=== PATIENT | male | born 1955 | race Hispanic/Latino ===

== ENCOUNTER 2018-10-24 14:33 | Observation (INO) | payer OTHER ==
--- NOTE | 2018-10-24 16:08 | P.HP ---
Certification for Inpatient Patient admitted to: Observation With expected LOS: <2 Midnights Patient will require the following post-hospital care: None Practitioner: I am a practitioner with admitting privileges, knowledge of patient current condition, hospital course, and medical plan of care. Services: Services provided to patient in accordance with Admission requirements found in Title 42 Section 412.3 of the Code of Federal Regulations Patient History Date of Service: 10/24/18 Primary Care Provider: Dr. Viveros; Nephrology-Dr. Alexander; Cardiology-Dr. Frias/Dr. 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 I was asked to admit the patient by nephrology. Patient had abnormal lab including worsening renal function. The patient was admitted for IV fluid hydration. Patient with history of diabetes, hypertension , hyperlipidemia, CAD with prior pacemaker and chronic renal disease. Patient denies any chest pain, shortness of breath, or headaches. He does report blood sugars being elevated. Patient had recent renal ultrasound showing no obstruction. Bladder ultrasound also unremarkable. Allergies erythromycin base Allergy (Intermediate, Verified 09/11/16 19:54) GI upset/burning Home medications list reviewed: Yes Home Medications: Amlodipine [Norvasc*] 10 mg PO DAILY 09/11/16 Carvedilol [Coreg*] 25 mg PO BID 09/11/16 Furosemide [Lasix*] 20 mg PO DAILYPRN PRN 09/11/16 Glipizide [Glipizide ER] 10 mg PO BID 09/11/16 Insulin Detemir [Levemir*] 20 units SQ BID 09/11/16 Isosorbide Dinitrate 10 mg PO TID 09/11/16 Metformin HCl [Glucophage] 1,000 mg PO BID 09/11/16 Pregabalin [Lyrica*] 50 mg PO BEDTIME 09/11/16 Rivaroxaban [Xarelto*] 15 mg PO DAILY 09/11/16 Telmisartan/Hydrochlorothiazid [Micardis Hct 80-12.5 mg Tablet] 1 tab PO DAILY 09/11/16 cloNIDine HCl [Catapres*] 0.1 mg PO TID 09/11/16 levETIRAcetam [Levetiracetam] 500 mg PO BID 09/11/16 levoFLOXacin [Levaquin] 250 mg PO DAILY #10 tab 09/16/16 - Past Medical/Surgical History Diabetic: Yes -: Hypertension -: Diabetes mellitus type 2, insulin-dependent -: CAD with pacemaker -: Hyperlipidemia -: Diabetic neuropathy -: Diabetic retinopathy -: Pacemaker placement -: Cholecystectomy Psychosocial/ Personal History: Patient is - Family History Family History: Reviewed- Non-Contributory - Social History Smoking Status: Never smoker Alcohol use: No CD- Drugs: No Caffeine use: Yes Place of Residence: Home Review of Systems General: As per HPI Eyes: Unremarkable ENT: Unremarkable Respiratory: Unremarkable Cardiovascular: Unremarkable Gastrointestinal: Unremarkable Genitourinary: Unremarkable Musculoskeletal: Unremarkable Integumentary: Unremarkable Neurological: Unremarkable Lymphatics: Unremarkable Physical Examination - Physical Exam General: Alert, In no apparent distress, Oriented x3, Cooperative HEENT: Atraumatic, Normocephalic, Mucous membr. 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) Neck: Supple, No Thyromegaly Respiratory: Clear to auscultation bilaterally Cardiovascular: Normal pulses, Regular rate/rhythm Gastrointestinal: Normal bowel sounds, Soft and benign, Non-distended, No tenderness, No masses, No rebound, No guarding Musculoskeletal: No erythema, No tenderness, No warmth Integumentary: No tenderness/swelling, No erythema, No warmth, No cyanosis Neurological: Normal speech, Normal strength at 5/5 x4 extr, Normal tone, Normal affect Assessment and Plan - Plan Impression: Acute on chronic renal disease, stage III Diabetes mellitus type 2, insulin-dependent Hypertension Hyperlipidemia CAD with prior pacemaker placement Diabetic retinopathy Plan: The patient admitted as a direct admit. Will start IV fluids. Recheck lab. Will monitor closely. Nephrology consulted to further monitor and address. Will discontinue metformin. Will need to review home medication and discontinue any medication that may cause more acute renal injury. Patient not taking any anti-inflammatories. Will need to renally adjust medications. Anticipate discharge in the next 24 hr. Will check A1c and tsh. Will continue with insulin. Discharge Plan: Home Plan to discharge in: 24 Hours - Advance Directives Does patient have a Living Will: No Does patient have a Durable POA for Healthcare: No - Code Status/Comfort Care Code Status Assessed: Yes (Patient full code.) Time Spent Managing Pts Care (In Minutes): 55
[2018-10-24] MEDS ORDERED: HYDRALAZINE HCL 20 MG/ML VIAL IV PRN (17:06)
[2018-10-24] MEDS ORDERED: ONDANSETRON 4 MG/2 ML VIAL IV PRN (17:06)
[2018-10-24] MEDS ORDERED: D50W 25 GM/50 ML SYRINGE IV PRN (17:06)
[2018-10-24] MEDS ORDERED: GLUCAGON 1 MG/VIAL IM PRN (17:06)
[2018-10-24] MEDS ORDERED: ACETAMINOPHEN 500 MG TAB PO PRN (17:06)
[2018-10-24 17:27] LABS: Absolute Lymphocytes (CBC) 2.1 K/uL (0.7-4.9); Absolute Monocytes 0.5 K/uL (0.1-1.3); Absolute Neutrophil 6.4 K/uL (1.8-8.0); Basophils % 0.6 % (0-1.3); Eosinophils % 5.1 % (0-4.4); Hematocrit 39.2 % (39.6-49.0); Lymphocytes % 21.8 % (15.3-44.8); MPV 7.2 fL (7.6-11.3); Monocytes % 5.1 % (3.3-12.3); RBC Red Blood Cell Count 4.44 M/uL (4.33-5.43)
[2018-10-24 17:33] LABS: Protime INR 0.96
[2018-10-24 18:30] LABS: Bilirubin Total 0.4 mg/dL (0.2-1.0); Magnesium 2.2 mg/dL (1.8-2.4); Thyroid Stimulating Hormone 2.67 uIU/mL (0.360-3.740)
[2018-10-24] MEDS: NA CHLORIDE 0.9% 1,000 ML IV SCH (18:31)
[2018-10-24] MEDS ORDERED: INSULIN -REGULAR HUMAN 50 UNIT/0.5 ML ML SQ SCH (21:00)
[2018-10-24] MEDS ORDERED: INSULIN GLARGINE 100 UNITS/ML SQ SCH (21:00)
[2018-10-24] MEDS ORDERED: ATORVASTATIN 10 MG TAB PO SCH (21:00)
[2018-10-24] MEDS: cloNIDine HCl 0.1 MG TAB PO SCH (22:14)
[2018-10-24] MEDS: INSULIN -REGULAR HUMAN 50 UNIT/0.5 ML ML SQ SCH (22:15)
[2018-10-24 23:47] LABS: Urine Appearance CLEAR; Urine Bilirubin NEGATIVE (NEG); Urine Blood NEGATIVE (NEG); Urine Color YELLOW; Urine Glucose 3+ (NEG); Urine Protein 2+ (NEG); Urine Urobilinogen 0.2 mg/dL (0.2-1.0)
[2018-10-25 00:01] LABS: Urine Microscopic Reflex ORDER UMIC
[2018-10-25 00:26] LABS: Urine Bacteria <20 /HPF (NONE SEEN); Urine Culture Reflex Order NOT NEEDED; Urine RBC <5 /HPF (NONE SEEN)
[2018-10-25 05:47] VITALS: BMI 42.8
[2018-10-25 06:12] LABS: Absolute Lymphocytes (CBC) 2.9 K/uL (0.7-4.9); Absolute Monocytes 0.6 K/uL (0.1-1.3); Basophils % 0.6 % (0-1.3); Eosinophils % 5.4 % (0-4.4); Hematocrit 38.2 % (39.6-49.0); Lymphocytes % 26.1 % (15.3-44.8); MPV 7.1 fL (7.6-11.3); Monocytes % 5.8 % (3.3-12.3); RBC Red Blood Cell Count 4.31 M/uL (4.33-5.43)
[2018-10-25 06:22] LABS: Magnesium 2.3 mg/dL (1.8-2.4)
[2018-10-25] MEDS: INSULIN -REGULAR HUMAN 50 UNIT/0.5 ML ML SQ SCH (08:35)
[2018-10-25] MEDS: NA CHLORIDE 0.9% 1,000 ML IV SCH (08:35)
[2018-10-25] MEDS: cloNIDine HCl 0.1 MG TAB PO SCH (08:36)
[2018-10-25] MEDS ORDERED: ENOXAPARIN 30 MG/0.3 ML SQ SCH (09:00)
[2018-10-25] MEDS ORDERED: levETIRAcetam 500 MG TAB PO SCH (09:00)
[2018-10-25] MEDS ORDERED: APIXABAN 5 MG TABLET PO SCH (09:00)
--- NOTE | 2018-10-25 09:34 | P.DS ---
Admission Date: 10/24/18 Discharge Date: 10/25/18 Primary Care Provider: Dr. Viveros; Nephrology-Dr. Alexander; Cardiology-Dr. Frias/Dr. Agosto Disposition: ROUTINE DISCHARGE Discharge Condition: GOOD Reason for Admission: Abnormal lab Consultations: Nephrology-Dr. Alexander Procedures: Patient presented with acute on chronic renal disease, stage III. Patient receive IV fluids. Renal function improved. Patient seen by nephrology. Medications had been adjusted. Metformin and telmisartan/hydrochlorothiazide discontinued. Recommend no further use of nonsteroidal anti-inflammatories. Future medications will need to be renally dose. Recommend to follow up with nephrology in 1-2 weeks. Recommend to recheck lab-BMP in 1 week. Patient with diabetes mellitus type 2. Patient will continue with his insulin therapy Levemir 20 units subcu twice daily. Patient also takes glipizide 10 mg 1 pill twice daily. Metformin discontinued due to chronic renal disease. Recommend blood sugars less than 140 fasting and less than 200 after meals. Further adjustment can be done by his PCP. Will need to monitor for hypoglycemia while on glipizide and insulin therapy. Education will be provided. Patient with hypertension. Medications adjusted due to chronic renal disease. Telmisartan/hydrochlorothiazide discontinued. Patient will continue with his current medications including Norvasc 10 mg daily, carvedilol 25 mg 1 pill twice daily, and clonidine 0.1 mg 1 pill 3 times a day. Recommend blood pressure is less than 150/80. Further adjustment can be done by his PCP or nephrology. Patient with seizure disorder. Patient will continue with Keppra 500 mg 1 pill twice daily. Patient with history of DVT on chronic anti coalition therapy-Eliquis. Patient continue with Eliquis 5 mg 1 pill twice daily. Further adjustment in medication can be done by his PCP. Patient with CAD and pacemaker. Follow up with cardiology as directed. 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 I was asked to admit the patient by nephrology. Patient had abnormal lab including worsening renal function. The patient was admitted for IV fluid hydration. Patient with history of diabetes, hypertension , hyperlipidemia, CAD with prior pacemaker and chronic renal disease. Patient denies any chest pain, shortness of breath, or headaches. He does report blood sugars being elevated. Patient had recent renal ultrasound showing no obstruction. Bladder ultrasound also unremarkable. Hospital Course: Acute on chronic renal disease, stage III Diabetes mellitus type 2, insulin-dependent Hypertension Hyperlipidemia CAD with prior pacemaker placement Diabetic retinopathy Seizure disorder History of DVT on chronic anti coagulation therapy Plan: The patient admitted as a direct admit. Will start IV fluids. Recheck lab. Will monitor closely. Nephrology consulted to further monitor and address. Will discontinue metformin. Will need to review home medication and discontinue any medication that may cause more acute renal injury. Patient not taking any anti-inflammatories. Will need to renally adjust medications. Anticipate discharge in the next 24 hr. Will check A1c and tsh. Will continue with insulin. Discharge Plan: Home Plan to discharge in: 24 Hours Vital Signs/Physical Exam: Temp Pulse Resp BP Pulse Ox 97.8 F 73 18 189/96 H 95 10/25/18 04:00 10/25/18 08:36 10/25/18 04:00 10/25/18 08:36 10/25/18 04:00 General: Alert, In no apparent distress, Oriented x3, Cooperative HEENT: Atraumatic Neck: Supple Respiratory: Clear to auscultation bilaterally, Normal air movement Cardiovascular: Normal pulses, Regular rate/rhythm Gastrointestinal: Normal bowel sounds, Soft and benign, Non-distended, No tenderness, No masses, No rebound, No guarding Musculoskeletal: No erythema, No tenderness, No warmth Integumentary: No erythema, No warmth, No cyanosis Neurological: Normal speech, Normal strength at 5/5 x4 extr, Normal tone, Normal affect Laboratory Data at Discharge: WBC 11.2 K/uL (4.3-10.9) H D 10/25/18 05:15 Hgb 12.8 g/dL (13.6-17.9) L 10/25/18 05:15 Hct 38.2 % (39.6-49.0) L 10/25/18 05:15 Plt Count 241 K/uL (152-406) 10/25/18 05:15 PT 11.4 SECONDS (9.5-12.5) 10/24/18 17:17 INR 0.96 10/24/18 17:17 APTT 41.5 SECONDS (24.3-36.9) H 10/24/18 17:17 Sodium 139 mmol/L (136-145) 10/25/18 05:15 Potassium 4.0 mmol/L (3.5-5.1) 10/25/18 05:15 BUN 35 mg/dL (7-18) H 10/25/18 05:15 Creatinine 1.88 mg/dL (0.55-1.3) H 10/25/18 05:15 Glucose 169 mg/dL (74-106) H 10/25/18 05:15 Magnesium 2.3 mg/dL (1.8-2.4) 10/25/18 05:15 Total Bilirubin 0.4 mg/dL (0.2-1.0) 10/24/18 17:17 AST 16 U/L (15-37) 10/24/18 17:17 ALT 32 U/L (12-78) 10/24/18 17:17 Alkaline Phosphatase 207 U/L (45-117) H 10/24/18 17:17 Triglycerides 216 mg/dL (<150) H 10/25/18 05:15 Cholesterol 121 mg/dL (<200) 10/25/18 05:15 HDL Cholesterol 35 mg/dL (40-60) L 10/25/18 05:15 Cholesterol/HDL Ratio 3.46 10/25/18 05:15 Home Medications: Amlodipine [Norvasc*] 10 mg PO DAILY 09/11/16 Carvedilol [Coreg*] 25 mg PO BID 09/11/16 Glipizide [Glipizide ER] 10 mg PO BID 09/11/16 Insulin Detemir [Levemir*] 20 units SQ BID 09/11/16 cloNIDine HCl [Catapres*] 0.1 mg PO TID 09/11/16 levETIRAcetam [Levetiracetam] 500 mg PO BID 09/11/16 Apixaban [Eliquis *] 5 mg PO BID 10/24/18 Patient Discharge Instructions: 1. Recommend a follow up with his PCP in 1 week to follow up this hospitalization. 2. Patient presented with acute on chronic renal disease, stage III. Patient receive IV fluids. Renal function improved. Patient seen by nephrology. Medications had been adjusted. Metformin and telmisartan/hydrochlorothiazide discontinued. Recommend no further use of nonsteroidal anti-inflammatories. Future medications will need to be renally dose. Recommend to follow up with nephrology in 1-2 weeks. Recommend to recheck lab-BMP in 1 week. 3. Patient with diabetes mellitus type 2. Patient will continue with his insulin therapy Levemir 20 units subcu twice daily. Patient also takes glipizide 10 mg 1 pill twice daily. Metformin discontinued due to chronic renal disease. Recommend blood sugars less than 140 fasting and less than 200 after meals. Further adjustment can be done by his PCP. Will need to monitor for hypoglycemia while on glipizide and insulin therapy. Education will be provided. 4. Patient with hypertension. Medications adjusted due to chronic renal disease. Telmisartan/ hydrochlorothiazide discontinued. Patient will continue with his current medications including Norvasc 10 mg daily, carvedilol 25 mg 1 pill twice daily, and clonidine 0.1 mg 1 pill 3 times a day. Recommend blood pressure is less than 150/80. Further adjustment can be done by his PCP or nephrology. 5. Patient with seizure disorder. Patient will continue with Keppra 500 mg 1 pill twice daily. 6. Patient with history of DVT on chronic anti coalition therapy- Eliquis. Patient continue with Eliquis 5 mg 1 pill twice daily. Further adjustment in medication can be done by his PCP. 7. Patient with CAD and pacemaker. Follow up with cardiology as directed. Diet: Renal Activity: Ad amita Time spent managing pt's care (in minutes): 55
[2018-10-25 09:53] VITALS: O2SAT 93
--- NOTE | 2018-10-25 15:16 | CON ---
Date of Consultation: 10/25/2018 Additional Consulting Physician: Ag Olsen DO Reason For Consultation: Elevated BUN and creatinine. Fluid management. History Of Present Illness: This is a pleasant 63-year-old gentleman with significant past medical h istory of diabetes complicated with neuropathy and nephropathy, coronary artery disease status post p acemaker, hypertension, hyperlipidemia, chronic kidney disease, baseline creatinine of 1.5 back in [facility] 2016 and repeated it was around 2's by the end of August with GFR of 25. The patient went to Dr. Alexander's office yesterday, found to have elevated BUN and creatinine. For that reason, he was sent over. The patient's blood sugar was on the 400, the patient was started on IV hydration. Kidney fu nction has been improved. Creatinine down to 1.8 from 2.6 on presentation. The patient is feeling b ashley. No nausea. No vomiting. Potassium has been resolved the hyperkalemia. Past Medical History: Includes, 1.Hypertension. 2.Diabetes complicated with neuropathy and nephropathy. 3.Coronary artery disease. 4.Status post pacemaker. 5.Chronic kidney disease, baseline creatinine 2, GFR on the 30. Home Medications: Include amlodipine, carvedilol, Lasix, glipizide, insulin, isosorbide, metformin, Lyrica, Xarelto, clonidine, Keppra, and Levaquin. Allergy: To erythromycin. Past Surgical History: Includes pacemaker. Family History: Positive for hypertension and diabetes. Social History: Denies smoking, denies drinking, denies drug abuse. Review of Systems: Head and Neck: No red eye. No ear pain. GI: No nausea, no vomiting. : No polyuria, no dysuria, no hematuria. Client Experience Consultant: Not applicable. Respiratory: No shortness of breath. Cardiovascular: Has leg swelling. Endocrine: No polydipsia. Skin: No rash. Neurologic: Has neuropathy. Musculoskeletal: Has low back pain. Physical Examination: Vital Signs: Blood pressure 189/96, pulse of 73. The patient had urine output good. Chest: Clear to auscultation. Heart: S1 and S2, regular. Abdomen: Soft, nontender. Extremities: +1 edema. Venous stasis, bilateral. Laboratory Data: Sodium 139, potassium 4, bicarb 26, BUN 35, creatinine 1.8, GFR of 36, calcium 8.4. PTH of 79. SPEP was within normal limit. Protein creatinine is 1.5. Renal ultrasound, 10.4/11.4. No hydronephrosis. Assessment And Plan: 1.Acute kidney injury on chronic kidney disease, stage 3B secondary to over-diuresis/glucose diuresi s, recovered back to baseline. I am going to resume Lasix for the patient. The patient is to follow up with Dr. Alexander in 2 to 3 weeks with chemistry. 2.Hypertension, uncontrolled. Resume home medication. Resume diuresis. 3.Congestive heart failure. We will establish better volume control. Continue diuresis. 4.Anemia of chronic kidney disease, stable. 5.Hyperkalemia, resolved. 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 We will try to e stablish better volume control for the patient. Discontinue IV fluid. We will resume the patient's diuresis. Advised the patient for better fluid restriction and better blood sugar compliance. HOMER Voice ID: [id number] Report ID: [id number]
[2018-10-25 15:36] VITALS: BP 175/81; TEMP 98.5
[2018-10-25] MEDS ORDERED: CARVEDILOL 25 MG TAB PO SCH (21:00)
[2018-10-26] MEDS ORDERED: AMLODIPINE 10 MG TAB PO SCH (09:00)
== END 2018-10-25 12:30 | disposition home or self-care (01) ==
LOC: 2ND 15:11
PROVIDERS: ADMIT Family Medicine; ATTEND Family Medicine
DX: I12.9 Hypertensive chronic kidney disease with stage 1 through stage 4 chronic kidney disease, or unspecified chronic kidney disease (principal); E11.22 Type 2 diabetes mellitus with diabetic chronic kidney disease; N18.3 Chronic kidney disease, stage 3 (moderate); N17.9 Acute kidney failure, unspecified; E78.5 Hyperlipidemia, unspecified; I25.10 Atherosclerotic heart disease of native coronary artery without angina pectoris; E11.319 Type 2 diabetes mellitus with unspecified diabetic retinopathy without macular edema; G40.919 Epilepsy, unspecified, intractable, without status epilepticus; Z86.718 Personal history of other venous thrombosis and embolism; Z79.01 Long term (current) use of anticoagulants; Z95.0 Presence of cardiac pacemaker
CPT/HCPCS: 85025 ×2; 80048; 36415; 83735 ×2; 82947; 85610; 80061; 82962 ×4; 85730; 84443; 83036; 84439; 80053; J7030 ×2; G0379; G0378; 81003; 81015

== ENCOUNTER 2019-06-30 13:14 | Inpatient (IN) | payer OTHER ==
[2019-06-30] MEDS ORDERED: NITROGLYCERIN 1 GM PKT TD ONE (13:43)
[2019-06-30] MEDS ORDERED: FUROSEMIDE 40 MG/4 ML VIAL ONE (13:43)
[2019-06-30] MEDS ORDERED: MORPHINE 2 MG/ML SYR ONE (13:43)
[2019-06-30 13:49] LABS: Absolute Lymphocytes (CBC) 2.6 K/uL (0.7-4.9); Basophils % 0.8 % (0-1.3); Hematocrit 36.8 % (39.6-49.0); Lymphocytes % 24.1 % (15.3-44.8); MPV 7.9 fL (7.6-11.3); RBC Red Blood Cell Count 4.08 M/uL (4.33-5.43)
--- NOTE | 2019-06-30 13:50 | RAD REPORT ---
EXAM DESCRIPTION: RAD - Chest Single View - 06/30/2019 1:38 pm CLINICAL HISTORY: Sepsis protocol, shortness of breath COMPARISON: October 2014 TECHNIQUE: AP portable chest image was obtained 1330 hour . FINDINGS: Left subclavian pacemaker/defibrillator is in place. Hazy ground-glass opacities are prese nt in the right lung field. Retrocardiac left base is more limited due to large body habitus and port able technique. Upper lobe vasculature not outside of normal range. Cardiac silhouette is enlarged. T rachea is midline. No pneumothorax. No large pleural effusion. Left pleural effusion could be masked. No acute bony abnormality seen. No acute aortic findings suspected. IMPRESSION: Asymmetric airspace opacification of the right lung field suspicious for pneumonia. An atypical or asymmetric failure/ volume overload is a lesser consideration.
[2019-06-30 13:51] LABS: Protime INR 1.04
[2019-06-30 14:07] LABS: Albumin 2.8 g/dL (3.4-5.0); Bilirubin Direct 0.2 mg/dL (0-0.2); Bilirubin Total 0.8 mg/dL (0.2-1.0); CKMB Creatine Kinase MB 2.5 ng/mL (0.3-3.6); Potassium 4.2 mmol/L (3.5-5.1); Protein, Total 7.5 g/dL (6.4-8.2); Troponin (Emerg Dept Use Only) 0.02 ng/mL (0.0-0.045)
--- NOTE | 2019-06-30 14:24 | EDPHYS ---
Physician Documentation [facility] Name: Jarod Kraft Age: 63 yrs Sex: Male : 1955 Arrival Date: 06/30/2019 Time: 13:18 Bed 2 Private MD: ED Physician Akira Pulido HPI: 06/30 13:36 This 63 yrs old Male presents to ER via EMS with complaints of Shortness Of snw Breath. 13:36 The patient has shortness of breath while showering. Onset: The symptoms/episode snw began/occurred suddenly, just prior to arrival. Duration: The symptoms are intermittent, with no pattern. The patient's shortness of breath is aggravated by nothing. Associated signs and symptoms: Pertinent positives: chest wall pain, occipital hematoma. Severity of symptoms: At their worst the symptoms were moderate. It is unknown whether or not the patient has had similar symptoms in the past. It is unknown whether or not the patient has recently seen a physician. Historical: - Allergies: 13:35 Erythromycin; ss - PMHx: 13:35 CHF; Diabetes - IDDM; Hypertension; Irregular heart rate; ss - PSHx: 13:35 pacemaker; ss - Immunization history:: Adult Immunizations up to date. - Social history:: Smoking status: Patient/guardian denies using tobacco. - Ebola Screening: : Patient denies exposure to infectious person Patient denies travel to an Ebola-affected area in the 21 days before illness onset. ROS: 13:34 Eyes: Negative for injury, pain, redness, and discharge, ENT: Negative for injury, snw pain, and discharge, Neck: Negative for injury, pain, and swelling, Cardiovascular: Negative for chest pain, palpitations, and edema, Respiratory: Negative for shortness of breath, cough, wheezing, + pleuritic chest pain, Abdomen/GI: Negative for abdominal pain, nausea, vomiting, diarrhea, and constipation, Back: Negative for injury and pain, : Negative for injury, bleeding, discharge, and swelling, MS/Extremity: Negative for injury and deformity, Skin: Negative for injury, rash, and discoloration. 13:34 Constitutional: Positive for body aches, malaise. 13:34 Neuro: Positive for dizziness, fall to floor of bathroom, Negative for gait disturbance, loss of consciousness. Exam: 13:33 Eyes: Pupils equal round and reactive to light, extra-ocular motions intact. Lids and snw lashes normal. Conjunctiva and sclera are non-icteric and not injected. Cornea within normal limits. Periorbital areas with no swelling, redness, or edema. ENT: Nares patent. No nasal discharge, no septal abnormalities noted. Tympanic membranes are normal and external auditory canals are clear. Oropharynx with no redness, swelling, or masses, exudates, or evidence of obstruction, uvula midline. Mucous membranes moist. Neck: Trachea midline, no thyromegaly or masses palpated, and no cervical lymphadenopathy. Supple, full range of motion without nuchal rigidity, or vertebral point tenderness. No Meningismus. Cardiovascular: Regular rate and rhythm with a normal S1 and S2. No gallops, murmurs, or rubs. Normal PMI, no JVD. No pulse deficits. Respiratory: Lungs have equal breath sounds bilaterally, clear to auscultation and percussion. No rales, rhonchi or wheezes noted. No increased work of breathing, no retractions or nasal flaring. Abdomen/GI: Soft, non-tender, with normal bowel sounds. No distension or tympany. No guarding or rebound. No evidence of tenderness throughout. Back: No spinal tenderness. No costovertebral tenderness. Full range of motion. Skin: Warm, dry with normal turgor. Normal color with no rashes, no lesions, and no evidence of cellulitis. MS/ Extremity: Pulses equal, no cyanosis. Neurovascular intact. Full, normal range of motion. Neuro: Awake and alert, GCS 15, oriented to person, place, time, and situation. Cranial nerves II-XII grossly intact. Motor strength 5/5 in all extremities. Sensory grossly intact. Cerebellar exam normal. Normal gait. Psych: Awake, alert, with orientation to person, place and time. Behavior, mood, and affect are within normal limits. 13:33 Constitutional: The patient appears alert, awake. 13:33 Head/face: Noted is contusion, hematoma, that is moderate, of the occiput. 13:33 Chest/axilla: Inspection: normal, Palpation: tenderness, that is moderate, that totally reproduces the patient's complaints. Vital Signs: 13:20 BP 172 / 90; Pulse 82; Resp 27; Temp 97.6; Pulse Ox 81% on R/A; Weight 136.08 kg; Pain ss 0/10; 14:28 BP 144 / 72; Pulse 71; Resp 18; Pulse Ox 94% on 94% BiPAP; Pain 0/10; ss 14:38 BP 115 / 65; Pulse 73; Resp 18; Pulse Ox 95% on BiPAP; ms 15:31 BP 131 / 75; Pulse 63; Resp 14; Pulse Ox 96% ; bp 16:30 BP 147 / 83; Pulse 80; Resp 20; Pulse Ox 99% ; bp MDM: 13:25 Patient medically screened. nahed 14:20 Data reviewed: vital signs, nurses notes. Data interpreted: Pulse oximetry: on 2L(s) snw per nasal canula, is 81 %. Interpretation: hypoxia. Plan: O2 by Mask applied. Bi-Pap. Counseling: I had a detailed discussion with the patient and/or guardian regarding: the historical points, exam findings, and any diagnostic results supporting the discharge/admit diagnosis, the presence of at least one elevated blood pressure reading (>120/80) during this emergency department visit, lab results, radiology results, the need for further work-up and treatment in the hospital. Response to treatment: the patient's symptoms have markedly improved after treatment. Physician consultation: Remington Del Valle was called at 14:21, was contacted at 14:21, regarding admission, to the telemetry unit. 06/30 13:20 Order name: Basic Metabolic Panel 06/30 13:20 Order name: Blood Culture Adult (2) 06/30 13:20 Order name: CBC with Diff 06/30 13:20 Order name: Ckmb 06/30 13:20 Order name: CPK; Complete Time: 14:07 06/30 13:20 Order name: Lactate; Complete Time: 14:07 06/30 13:20 Order name: LFT's; Complete Time: 14:07 06/30 13:20 Order name: Lipase; Complete Time: 14:07 06/30 13:20 Order name: Procalcitonin; Complete Time: 14:57 06/30 13:20 Order name: Protime (+inr); Complete Time: 13:55 06/30 13:20 Order name: Ptt, Activated; Complete Time: 13:55 06/30 13:20 Order name: Troponin (emerg Dept Use Only); Complete Time: 14:07 ss 06/30 13:20 Order name: Urine Microscopic Only ss 06/30 13:21 Order name: Basic Metabolic Panel; Complete Time: 14:07 EDMS 06/30 13:20 Order name: Chest Single View XRAY; Complete Time: 14:16 ss 06/30 13:20 Order name: Accucheck; Complete Time: 14:07 ss 06/30 13:20 Order name: Cardiac monitoring; Complete Time: 13:38 ss 06/30 13:20 Order name: EKG - Nurse/Tech; Complete Time: 13:38 ss 06/30 13:20 Order name: IV Saline Lock - Large Bore; Complete Time: 13:38 ss 06/30 13:21 Order name: Blood Culture EDMS 06/30 13:21 Order name: CBC with Automated Diff; Complete Time: 13:55 EDMS 06/30 13:21 Order name: CKMB Creatine Kinase MB; Complete Time: 14:07 EDMS 06/30 13:26 Order name: BIPAP sn 06/30 14:20 Order name: Add On-Lab [facility] 06/30 14:23 Order name: NT PRO-BNP; Complete Time: 14:57 EDMS 06/30 16:15 Order name: CT Chest Wo Con snw 06/30 13:20 Order name: Labs collected and sent; Complete Time: 13:38 ss 06/30 13:20 Order name: O2 Per Protocol; Complete Time: 13:38 ss 06/30 13:20 Order name: O2 Sat Monitoring; Complete Time: 13:38 ss Administered Medications: 13:26 CANCELLED (HTN): NS 0.9% (30 ml/kg) 30 ml/kg IV at bolus once; Sepsis Protocol sn 13:50 Drug: Lasix 40 mg Route: IVP; Site: left hand; ss 13:54 Drug: Nitro-Bid Ointment 2 % 1 inches Route: Transdermal; Site: anterior chest wall; ss 13:54 Drug: morphine 2 mg Route: IVP; Site: left hand; ss Disposition: 06/30/19 14:23 Hospitalization ordered by Remington Del Valle for Inpatient Admission. Preliminary diagnosis are Unspecified combined systolic (congestive) and diastolic (congestive) heart failure, Respiratory failure, unspecified, Renal Failure. - Bed requested for Telemetry/MedSurg (Inpatient). - Status is Inpatient Admission. bp - Condition is Stable. - Problem is new. - Symptoms have improved. UTI on Admission? No Addendum: 07/02/2019 13:14 Co-signature as Attending Physician, Akira Pulido MD I agree with the assessment and c tate plan of care. Signatures: Dispatcher [employer] EDSD Akira Pulido MD MD cha Therrien, Shelly, REFRIGERATION ENGINEERING TEACHER-C REFRIGERATION ENGINEERING TEACHER-Csnw Saloni Vazquez, SHARRON RN Andres Avendaño RN RN ja1 Herbert Alarcon, RN RN bp Corrections: (The following items were deleted from the chart) 06/30 13:26 13:20 NS 0.9% (30 ml/kg) 30 ml/kg IV at bolus once; Sepsis Protocol ordered. [facility] 15:06 14:23 Hospitalization Ordered by Remington Del Valle for Inpatient Admission. Preliminary ja1 diagnosis is Unspecified combined systolic (congestive) and diastolic (congestive) heart failure; Respiratory failure, unspecified; Renal Failure. Bed requested for Telemetry/MedSurg (Inpatient). Status is Inpatient Admission. Condition is Stable. Problem is new. Symptoms have improved. UTI on Admission? No. snw 16:30 15:06 06/30/2019 14:23 Hospitalization Ordered by Remington Del Valle for Inpatient bp Admission. Preliminary diagnosis is Unspecified combined systolic (congestive) and diastolic (congestive) heart failure; Respiratory failure, unspecified; Renal Failure. Bed requested for Telemetry/MedSurg (Inpatient). Status is Inpatient Admission. Condition is Stable. Problem is new. Symptoms have improved. UTI on Admission? No. ja1
--- NOTE | 2019-06-30 14:24 | ER ---
Nurse's Notes [facility] Name: Jarod Kraft Age: 63 yrs Sex: Male : 1955 Arrival Date: 06/30/2019 Time: 13:18 Bed 2 Private MD: Diagnosis: Unspecified combined systolic (congestive) and diastolic (congestive) heart failure;Respiratory failure, unspecified;Renal Failure Presentation: 06/30 13:15 Method Of Arrival: EMS: [facility] ss 13:15 Presenting complaint: Patient states: shortness of breath that began 1 hour ago, sudden ss onset. Denies fever. Patient arrived to ED on CPAP. Transition of care: patient was not received from another setting of care. Onset of symptoms was June 30, 2019. Risk Assessment: Do you want to hurt yourself or someone else? Patient reports no desire to harm self or others. Initial Sepsis Screen: Does the patient meet any 2 criteria? RR > 20 per min. Does the patient have a suspected source of infection? No. Patient's initial sepsis screen is negative. Care prior to arrival: Medication(s) given: IV initiated. 22 GA, in the left hand, Glucose check: 218. 13:15 Acuity: ASAF 1 ss Triage Assessment: 13:30 General: Appears distressed, comfortable, obese, Behavior is cooperative, appropriate bp for age, agitated, anxious. Respiratory: Breath sounds with crackles bilaterally. Breath sounds with wheezes bilaterally. Onset: The symptoms/episode began/occurred today, the patient has moderate shortness of breath. Respiratory: Reports shortness of breath Airway is patent. Historical: - Allergies: 13:35 Erythromycin; ss - PMHx: 13:35 CHF; Diabetes - IDDM; Hypertension; Irregular heart rate; ss - PSHx: 13:35 pacemaker; ss - Immunization history:: Adult Immunizations up to date. - Social history:: Smoking status: Patient/guardian denies using tobacco. - Ebola Screening: : Patient denies exposure to infectious person Patient denies travel to an Ebola-affected area in the 21 days before illness onset. Screenin:27 Abuse screen: Denies threats or abuse. Denies injuries from another. Nutritional ss screening: No deficits noted. Tuberculosis screening: Never had TB. Fall Risk None identified. Assessment: 13:20 General: Appears distressed, uncomfortable, obese, Behavior is anxious, Reports feeling ss ill for x 1-2 hours. Pain: Denies pain. Neuro: Level of Consciousness is awake, alert, obeys commands. Cardiovascular: Capillary refill is sluggish in bilateral fingers. Cardiovascular: Rhythm is Respiratory: Reports shortness of breath at rest on exertion since x 1-2 hours ago Airway is patent Respiratory effort is labored, Respiratory pattern is tachypnea Breath sounds are diminished bilaterally. GI: Patient currently denies abdominal pain, diarrhea, nausea, vomiting. : No signs and/or symptoms were reported regarding the genitourinary system. Derm: Skin is pink, warm \T\ dry. 14:26 Reassessment: Patient states feeling better. Patient states symptoms have improved. ss Reassessment: BIPAP remains in place. Family member at bedside. Respiratory: Airway is patent Respiratory effort is even, unlabored, Respiratory pattern is regular, symmetrical. 15:32 Reassessment: ADMIT ON HOLD UNTIL 1600 FOR BED AVAILABILITY. S/S IMPROVED ON BIPAP. bp Vital Signs: 13:20 BP 172 / 90; Pulse 82; Resp 27; Temp 97.6; Pulse Ox 81% on R/A; Weight 136.08 kg; Pain ss 0/10; 14:28 BP 144 / 72; Pulse 71; Resp 18; Pulse Ox 94% on 94% BiPAP; Pain 0/10; ss 14:38 BP 115 / 65; Pulse 73; Resp 18; Pulse Ox 95% on BiPAP; ms 15:31 BP 131 / 75; Pulse 63; Resp 14; Pulse Ox 96% ; bp 16:30 BP 147 / 83; Pulse 80; Resp 20; Pulse Ox 99% ; bp ED Course: 13:18 Patient arrived in ED. la1 13:18 Kari Chan FNP-C is PHCP. snw 13:18 Akira Pulido MD is Attending Physician. snw 13:20 Arm band placed on right wrist. ss 13:20 Patient has correct armband on for positive identification. Placed in gown. Bed in low ss position. Call light in reach. Side rails up X2. beer brewer on. Pulse ox on. NIBP on. 13:32 Saloni Vazquez RN is Primary Nurse. ss 13:32 EKG done, by white goods appliance tech. reviewed by Kari FOREMAN. 3 13:35 Triage completed. ss 13:37 Chest Single View XRAY In Process Unspecified. EDMS 13:39 Inserted saline lock: 18 gauge in right forearm, using aseptic technique. ,using ss aseptic technique. Insertion by Herbert Alarcon, RN Blood collected. 14:22 Remington Del Valle is Hospitalizing Provider. snw 15:34 No provider procedures requiring assistance completed. Patient admitted, IV remains in bp place. Administered Medications: 13:26 CANCELLED (HTN): NS 0.9% (30 ml/kg) 30 ml/kg IV at bolus once; Sepsis Protocol snw 13:50 Drug: Lasix 40 mg Route: IVP; Site: left hand; ss 13:54 Drug: Nitro-Bid Ointment 2 % 1 inches Route: Transdermal; Site: anterior chest wall; ss 13:54 Drug: morphine 2 mg Route: IVP; Site: left hand; Outcome: 14:23 Decision to Hospitalize by Provider. snw 16:29 Admitted to Med/surg accompanied by tech, family with patient, via wheelchair, room bp 414, with oxygen, with chart, Report called to JOSÉ LUIS MCDERMOTT 16:29 Condition: stable 16:29 Instructed on the need for admit. 16:30 Patient left the ED. bp Signatures: Dispatcher [employer] EDMS Kari Chan, KELLEN NUCLEAR STATION OPERATOR-Csnw Makeda Rodríguez ms, Shelby, RN RN Rigoberto Hawthorne RN RN la1 Herbert Alarcon RN RN Zoie Hopkins 3
--- NOTE | 2019-06-30 18:07 | P.HP ---
Certification for Inpatient Patient admitted to: Inpatient With expected LOS: >2 Midnights Practitioner: I am a practitioner with admitting privileges, knowledge of patient current condition, hospital course, and medical plan of care. Services: Services provided to patient in accordance with Admission requirements found in Title 42 Section 412.3 of the Code of Federal Regulations Patient History Date of Service: 06/30/19 Reason for admission: Shortness of breath History of Present Illness: 63-year-old gentleman with a history of diabetes mellitus type 2, hypertension, atrial fibrillation status post atrial pacemaker presented to the emergency department with a complaint of sudden onset of shortness of breath. The patient reports nonproductive cough, he denies wheezing, he denies chest pain, he denied any prior upper respiratory symptoms. He also denied any fever. In the ED, patient was noted to be quite dyspneic. His systolic blood pressure was 190 on arrival. He was placed on BiPAP and given a dose of IV Lasix and nitroglycerin. Chest x-ray done demonstrated vascular congestion and left pleural effusion. There was a question of asymmetric opacity which could suggest pneumonia. His respiratory condition improved in the ED after the IV Lasix, he was weaned off BiPAP to oxygen by nasal cannula. His systolic blood pressure also improved to the 120s. The patient is admitted for further management. Allergies erythromycin base Allergy (Intermediate, Verified 09/11/16 19:54) GI upset/burning Home Medications: Amlodipine [Norvasc*] 10 mg PO DAILY 09/11/16 Carvedilol [Coreg*] 25 mg PO BID 09/11/16 Glipizide [Glipizide ER] 10 mg PO BID 09/11/16 Insulin Detemir [Levemir*] 20 units SQ BID 09/11/16 cloNIDine HCl [Catapres*] 0.1 mg PO TID 09/11/16 levETIRAcetam [Levetiracetam] 500 mg PO BID 09/11/16 Apixaban [Eliquis *] 5 mg PO BID 10/24/18 - Past Medical/Surgical History Diabetic: Yes -: Hypertension -: Diabetes mellitus type 2, insulin-dependent -: CAD with pacemaker -: Hyperlipidemia -: Diabetic neuropathy -: Diabetic retinopathy -: Pacemaker placement -: Cholecystectomy Psychosocial/ Personal History: Patient is - Family History Father -: Heart disease Mother -: Diabetes - Social History Smoking Status: Former smoker Alcohol use: No CD- Drugs: No Caffeine use: No Review of Systems Other: General: No fever, no malaise, no unintentional weight loss. Eyes: No eye discharge, CVS: No chest pain, no palpitation, no lightheadedness. GI: No abdominal pain, no nausea no vomit, no constipation, no diarrhea. Genitourinary: No dysuria, no urinary frequency, no incontinence, no hematuria. Musculoskeletal: No joint pains, or joint swelling, no gait instability. Neurology: No headache, no asymmetric, weakness, no problem with swallowing. Except as documented, all other systems reviewed and negative. Physical Examination - Physical Exam General: Alert, In no apparent distress, Oriented x3 HEENT: Atraumatic, Normocephalic, PERRLA, Mucous membr. moist/pink, Sclerae nonicteric Neck: Supple, JVD not distended, No Thyromegaly Respiratory: Clear to auscultation bilaterally, Crackles/rales (Posterior Bibasilar crackles.) Cardiovascular: Regular rate/rhythm, Normal S1 S2, No murmurs, Edema Capillary refill: <2 Seconds Gastrointestinal: Normal bowel sounds, Soft and benign, Non-distended, No tenderness Musculoskeletal: No erythema Integumentary: No rashes, No erythema Neurological: Normal speech, Normal strength at 5/5 x4 extr - Studies Laboratory Data (last 24 hrs) 06/30/19 13:24: PT 12.2, INR 1.04, APTT 43.4 H 06/30/19 13:24: WBC 10.9, Hgb 12.6 L, Hct 36.8 L, Plt Count 246 06/30/19 13:24: Sodium 143, Potassium 4.2, BUN 49 H, Creatinine 2.89 H, Glucose 232 H, Total Bilirubin 0.8, AST 26, ALT 43, Alkaline Phosphatase 154 H, Lipase 294 Assessment and Plan - Problems (Diagnosis) (1) Acute respiratory failure with hypoxia Current Visit: Yes Status: Acute (2) CHF exacerbation Current Visit: Yes Status: Acute (3) Malignant hypertension Current Visit: Yes Status: Acute (4) Acute worsening of stage 3 chronic kidney disease Current Visit: Yes Status: Acute - Plan Admit to [facility] with telemetry Treat CHF exacerbation with IV Lasix Monitor intake and output Daily weight Fluid restriction to 1500 mL per day Aggressive blood pressure control Continue home antihypertensives Hydralazine IV p.r.n. for BP spikes Obtain echocardiogram. Trend troponin. Monitor renal panel. Bronchodilators. I doubt patient has pneumonia based on presentation which more likely suggests flash pulmonary edema. Titrate oxygen. Will continue Lantus insulin and use insulin sliding scale for glucose management. - Advance Directives Does patient have a Living Will: No Does patient have a Durable POA for Healthcare: No
[2019-06-30] MEDS ORDERED: HYDRALAZINE HCL 20 MG/ML VIAL IV PRN (18:31)
[2019-06-30 18:50] LABS: Urine Bacteria <20 /HPF (NONE SEEN); Urine Culture Reflex Order NOT NEEDED; Urine RBC NONE SEEN /HPF (NONE SEEN)
--- NOTE | 2019-06-30 19:20 | RAD REPORT ---
EXAM DESCRIPTION: CT - Thorax Wo Con CLINICAL HISTORY: Chest pain eval CHF/pneumonia per Dr. Del Valle COMPARISON: Chest Single View dated 06/30/2019 FINDINGS: Ground-glass opacity is present in the right lower lobe with areas of nodularity also pres ent. This has the appearance of atypical infection/pneumonia. Overall the findings are likely superim posed on mild interstitial pulmonary edema. Small bilateral pleural effusions are seen. No pneumothor ax. The heart is mildly enlarged pacemaker wires present. A few upper limit of normal mediastinal lymph nodes seen. No concerning bony finding. No gross upper abdominal finding. All CT scans are performed using dose optimization technique as appropriate and may include automated exposure control or mA/KV adjustment according to patient size. IMPRESSION: Mild CHF/ volume overload pattern is seen with its superimposed reticulonodular opacitie s in the right lower lobe likely superimposed representing pulmonary infection/atypical pneumonia.
[2019-06-30] MEDS: ALBUTEROL 2.5 MG/3 ML NEB SOL NEB SCH (20:00)
[2019-06-30] MEDS: IPRATROPIUM BROM 0.5MG/2.5ML NEB SCH (20:00)
[2019-06-30] MEDS ORDERED: ISOSORBIDE MONO SR 60 MG TAB PO SCH (21:00)
[2019-06-30] MEDS ORDERED: INFLUENZA VACCINE (for 3y+) 0.5 ML DOSE IMVAC ONE (21:00)
[2019-06-30] MEDS: cloNIDine HCl 0.1 MG TAB PO SCH (21:29)
[2019-06-30] MEDS: levETIRAcetam 500 MG TAB PO SCH (21:29)
[2019-06-30] MEDS: carvediloL 25 MG TAB PO SCH (21:29)
[2019-06-30] MEDS: ENOXAPARIN 40 MG/0.4 ML SQ SCH (21:31)
[2019-06-30] MEDS: INSULIN GLARGINE 100 UNITS/ML SQ SCH (21:47)
[2019-07-01] MEDS: ALBUTEROL 2.5 MG/3 ML NEB SOL NEB SCH ×5 (02:00→20:00)
[2019-07-01] MEDS: IPRATROPIUM BROM 0.5MG/2.5ML NEB SCH ×6 (03:48→20:00)
[2019-07-01 05:50] LABS: Absolute Lymphocytes (CBC) 1.7 K/uL (0.7-4.9); Hematocrit 29.3 % (39.6-49.0); Lymphocytes % 19.3 % (15.3-44.8); MPV 7.5 fL (7.6-11.3); RBC Red Blood Cell Count 3.26 M/uL (4.33-5.43)
[2019-07-01 06:00] LABS: Magnesium 2.1 mg/dL (1.8-2.4); Phosphorus 4.3 mg/dL (2.5-4.9); Potassium 4.4 mmol/L (3.5-5.1)
[2019-07-01] MEDS: FUROSEMIDE 40 MG/4 ML VIAL IV SCH ×2 (09:12→17:57)
[2019-07-01] MEDS: ISOSORBIDE MONO SR 30 MG TAB PO SCH ×2 (09:13→20:06)
[2019-07-01] MEDS: cloNIDine HCl 0.1 MG TAB PO SCH ×3 (09:13→20:06)
[2019-07-01] MEDS: levETIRAcetam 500 MG TAB PO SCH ×2 (09:13→20:06)
[2019-07-01] MEDS: glipiZIDE 5 MG TAB PO SCH (09:13)
[2019-07-01] MEDS: carvediloL 25 MG TAB PO SCH ×2 (09:13→20:05)
[2019-07-01] MEDS: ENOXAPARIN 40 MG/0.4 ML SQ SCH (09:14)
[2019-07-01] MEDS: INSULIN GLARGINE 100 UNITS/ML SQ SCH ×2 (09:19→20:05)
[2019-07-01] MEDS: ATORVASTATIN 40 MG TAB PO SCH (09:19)
--- NOTE | 2019-07-01 11:18 | P.PN ---
Subjective Date of Service: 07/01/19 Chief Complaint: Shortness of breath Patient states his pain is better today. He states the shortness of breath of improved significantly. He has no tolerating room air. He denies any chest pain. Troponin mildly elevated. Heart rate is controlled. Physical Examination - Vital Signs Temperature: 96.8 F Blood Pressure: 132/73 Pulse: 60 Respirations: 16 Pulse Ox (%): 95 - Physical Exam General: Alert, In no apparent distress, Oriented x3 HEENT: Mucous membr. moist/pink Neck: Supple, JVD not distended Respiratory: Clear to auscultation bilaterally, Normal air movement Cardiovascular: No edema, Regular rate/rhythm, Normal S1 S2 Gastrointestinal: Normal bowel sounds, Soft and benign, Non-distended, No tenderness Musculoskeletal: No swelling Integumentary: No rashes Neurological: Normal speech, Normal strength at 5/5 x4 extr - Studies Laboratory Data (last 24 hrs) 06/30/19 13:24: PT 12.2, INR 1.04, APTT 43.4 H 06/30/19 13:24: WBC 10.9, Hgb 12.6 L, Hct 36.8 L, Plt Count 246 06/30/19 13:24: Sodium 143, Potassium 4.2, BUN 49 H, Creatinine 2.89 H, Glucose 232 H, Total Bilirubin 0.8, AST 26, ALT 43, Alkaline Phosphatase 154 H, Lipase 294 Assessment And Plan - Current Problems (Diagnosis) (1) Acute respiratory failure with hypoxia Current Visit: Yes Status: Acute (2) CHF exacerbation Current Visit: Yes Status: Acute (3) Malignant hypertension Current Visit: Yes Status: Acute (4) Acute worsening of stage 3 chronic kidney disease Current Visit: Yes Status: Acute - Plan Troponin trended flat. 1 more dose of IV Lasix today Monitor intake and output Daily weight Fluid restriction to 1500 mL per day Blood pressure has improved, patient is currently normotensive. Continue home antihypertensives Hydralazine IV p.r.n. for BP spikes Echocardiogram is pending. Cardiology consult. Not much improvement in serum creatinine. Continue Bronchodilators. I doubt patient has pneumonia based on presentation which more likely suggests flash pulmonary edema. Titrate oxygen. Continue Lantus insulin and use insulin sliding scale for glucose management.
--- NOTE | 2019-07-01 22:37 | CON ---
Date of Consultation: 07/01/2019 Reason For Consultation: Congestive heart failure. History Of Present Illness: Mr. Chele Kraft is a 63-year-old Latin-French male. He normally is a patient of Dr. Agosto and Dr. Frias. Dr. Frias had put an initial pacemaker in 2002. He had a nother pacemaker done in 2006. Apparently, he has another pacemaker planned in 2020 because of gener ator malfunction and battery issues. He is asymptomatic from that standpoint. He did come in with c ongestive heart failure versus pneumonia by x-ray and CT scan. His main complaint was shortness of b reath. Denied chest pain, palpitations, or syncope. Denies nausea, vomiting, or diaphoresis. Past Medical History: Mr. Kraft's past medical history is positive for obesity, pacemaker, CHF, d iabetes, cholesterol, hypertension, and arrhythmias unknown. Allergies: HE IS ALLERGIC TO ERYTHROMYCIN. Review of Systems: Negative. Social History: Negative for tobacco, drugs, or alcohol. Family History: Positive for diabetes and heart disease. Medications At Home: Include clonidine, glipizide, inhalers, Norvasc, Micardis with hydrochlorothiaz radha, Imdur, Lasix, insulin, Lipitor, and Coreg. Physical Examination: Measurements: He weighed 274 pounds. General: He was in no acute distress. Vital Signs: He was in a paced rhythm. He was afebrile. HEENT: Negative. Neck: Supple without any bruit, lymphadenopathy, JVD, or thyromegaly. Chest: Revealed rales at both bases. Cardiac: Revealed a paced rhythm. No murmurs, gallops, or rubs. Abdomen: Obese. Extremities: Revealed no clubbing, cyanosis, or edema. Skin: Dry and intact. Neurologic: He was nonfocal. Pulses were decreased distally in the dorsalis pedis and posterior tib ial. Diagnostic Data: His creatinine was 2.83. His glucose was 140, hemoglobin 10.1. Troponin is 0.38. Chest x-ray and CT scan both showed CHF versus pneumonia. Impression And Plan: 1.Acute exacerbation of chronic systolic congestive heart failure. 2.Renal insufficiency. 3.Elevated troponin secondary to congestive heart failure. 4.Mild anemia. 5.History of pacemaker placement. 6.Hypertension. 7.Diabetes. 8.Dyslipidemia. 9.Obesity. 10.Coronary artery disease. Mr. Elaine has improved dramatically on IV Lasix which I agree with. His creatinine has remained stab le. I think he should not be on Micardis with hydrochlorothiazide with a creatinine of 2.83. I thin k he needs to continue his antihypertensive medication including clonidine, Coreg, Norvasc. Patient apparently keeps close followup on his pacemaker. His last check was in February 2019. He was told he n eeds a new pacemaker in November 2019. I am assuming this is a generator replacement. I think Mr. Cody patel needs a little bit more diuresis and I would feel comfortable with him going home tomorrow. Fifty five minutes was spent in the care of Mr. Chele Kraft including reviewing chart, discussing the case with him with Dr. Del Valle and with the nurses. He will see Dr. Agosto after discharge. SHA/SADIE Voice ID: [id number] Report ID: [id number]
[2019-07-02] MEDS: ALBUTEROL 2.5 MG/3 ML NEB SOL NEB SCH ×2 (02:00→07:43)
[2019-07-02] MEDS: IPRATROPIUM BROM 0.5MG/2.5ML NEB SCH ×4 (04:00→12:30)
[2019-07-02 06:14] LABS: Absolute Lymphocytes (CBC) 1.7 K/uL (0.7-4.9); Hematocrit 29.6 % (39.6-49.0); Lymphocytes % 20.4 % (15.3-44.8); MPV 7.2 fL (7.6-11.3); RBC Red Blood Cell Count 3.34 M/uL (4.33-5.43)
[2019-07-02 06:21] VITALS: BMI 44.1
[2019-07-02 06:24] LABS: Potassium 3.8 mmol/L (3.5-5.1)
[2019-07-02] MEDS ORDERED: POTASSIUM CL SA 10 MEQ TAB PO ONE (08:00)
[2019-07-02] MEDS: carvediloL 25 MG TAB PO SCH (08:44)
[2019-07-02] MEDS: glipiZIDE 5 MG TAB PO SCH (08:44)
[2019-07-02] MEDS: ISOSORBIDE MONO SR 30 MG TAB PO SCH (08:45)
[2019-07-02] MEDS: cloNIDine HCl 0.1 MG TAB PO SCH ×2 (08:45→13:25)
[2019-07-02] MEDS: FUROSEMIDE 40 MG/4 ML VIAL IV SCH (08:45)
[2019-07-02] MEDS: ATORVASTATIN 40 MG TAB PO SCH (08:45)
[2019-07-02] MEDS: levETIRAcetam 500 MG TAB PO SCH (08:45)
[2019-07-02] MEDS: INSULIN GLARGINE 100 UNITS/ML SQ SCH (08:45)
[2019-07-02] MEDS: ENOXAPARIN 40 MG/0.4 ML SQ SCH (08:46)
[2019-07-02 10:43] VITALS: O2SAT 100
--- NOTE | 2019-07-02 12:18 | P.DS ---
Admission Date: 06/30/19 Discharge Date: 07/02/19 Disposition: ROUTINE DISCHARGE Discharge Condition: GOOD Reason for Admission: Shortness of breath Consultations: Cardiology-Dr. Corbin - Problems (1) Acute respiratory failure with hypoxia Current Visit: Yes Status: Acute (2) CHF exacerbation Current Visit: Yes Status: Acute (3) Malignant hypertension Current Visit: Yes Status: Acute (4) Acute worsening of stage 3 chronic kidney disease Current Visit: Yes Status: Acute Brief History of Present Illness: 63-year-old gentleman with a history of diabetes mellitus type 2, hypertension, atrial fibrillation status post atrial pacemaker presented to the emergency department with a complaint of sudden onset of shortness of breath. The patient reported nonproductive cough, he denied wheezing, he denied chest pain, he denied any prior upper respiratory symptoms. He also denied any fever. In the ED, patient was noted to be quite dyspneic. His systolic blood pressure was 190 on arrival. He was placed on BiPAP and given a dose of IV Lasix and nitroglycerin. Chest x-ray done demonstrated vascular congestion and left pleural effusion. There was a question of asymmetric opacity which could suggest pneumonia. His respiratory condition improved in the ED after the IV Lasix, he was weaned off BiPAP to oxygen by nasal cannula. His systolic blood pressure also improved to the 120s. The patient was admitted for further management. Hospital Course: Trended was mildly elevated. Cardiology was consulted, patient was seen by Dr. Corbin. Troponin elevation deemed to be secondary to demand ischemia, low suspicion for ACS. He was diuresed with IV Lasix. Patient respiratory status improved significantly and was back to baseline. He tolerated room air with good oxygen saturation. Patient also ambulated without dyspnea or desaturating. His blood pressure improved but moderately elevated on his home antihypertensives. His renal function remained stable though creatinine remain elevated . Patient has clinically improved and deemed stable for discharge. He will follow with his public safety officer Dr. Agosto as outpatient. Vital Signs/Physical Exam: Temp Pulse Resp BP Pulse Ox 97.9 F 73 18 167/88 H 100 07/02/19 08:00 07/02/19 08:45 07/02/19 08:00 07/02/19 08:45 07/02/19 08:00 General: Alert, In no apparent distress, Oriented x3 HEENT: Mucous membr. moist/pink Neck: Supple, JVD not distended Respiratory: Clear to auscultation bilaterally, Normal air movement Cardiovascular: No edema, Regular rate/rhythm, Normal S1 S2 Gastrointestinal: Normal bowel sounds, Soft and benign, Non-distended, No tenderness Musculoskeletal: No swelling Integumentary: No rashes Neurological: Normal speech, Normal strength at 5/5 x4 extr Laboratory Data at Discharge: WBC 8.2 K/uL (4.3-10.9) 07/02/19 05:50 Hgb 10.4 g/dL (13.6-17.9) L 07/02/19 05:50 Hct 29.6 % (39.6-49.0) L 07/02/19 05:50 Plt Count 194 K/uL (152-406) 07/02/19 05:50 PT 12.2 SECONDS (9.5-12.5) 06/30/19 13:24 INR 1.04 06/30/19 13:24 APTT 43.4 SECONDS (24.3-36.9) H 06/30/19 13:24 Sodium 147 mmol/L (136-145) H 07/02/19 05:50 Potassium 3.8 mmol/L (3.5-5.1) 07/02/19 05:50 BUN 54 mg/dL (7-18) H 07/02/19 05:50 Creatinine 2.91 mg/dL (0.55-1.3) H 07/02/19 05:50 Glucose 81 mg/dL (74-106) 07/02/19 05:50 Phosphorus 4.3 mg/dL (2.5-4.9) 07/01/19 05:07 Magnesium 2.1 mg/dL (1.8-2.4) 07/01/19 05:07 Total Bilirubin 0.8 mg/dL (0.2-1.0) 06/30/19 13:24 AST 26 U/L (15-37) 06/30/19 13:24 ALT 43 U/L (12-78) 06/30/19 13:24 Alkaline Phosphatase 154 U/L (45-117) H 06/30/19 13:24 Troponin I 0.20 ng/mL (0.0-0.045) H 07/01/19 09:49 Lipase 294 U/L (73-393) 06/30/19 13:24 Home Medications: Amlodipine [Norvasc*] 10 mg PO DAILY 09/11/16 Carvedilol [Coreg*] 25 mg PO BID 09/11/16 Glipizide [Glipizide ER] 10 mg PO BID 09/11/16 Insulin Detemir [Levemir*] 30 units SQ BID 09/11/16 levETIRAcetam [Levetiracetam] 500 mg PO BID 09/11/16 Aspirin 1 tab PO DAILY 06/30/19 Atorvastatin Calcium 1 tab PO DAILY 06/30/19 Clonidine HCl [Catapres*] 1 tab PO TID 06/30/19 Furosemide 1 tab PO BID 06/30/19 Isosorbide Mononitrate [Isosorbide Mononitrate ER] 60 mg PO BID 06/30/19 Diet: ADA Activity: Ad amita Followup: LAKEISHA AGOSTO [UNKNOWN] - 1-2 Weeks Time spent managing pt's care (in minutes): 33
[2019-07-02 12:27] VITALS: BP 156/87; TEMP 98.4
--- NOTE | 2019-07-02 12:50 | EKG ---
Test Date: 2019-06-30 Test Time: 13:20:23 [employer]isher: BHAVESH MEASUREMENT RESULTS: Intervals: Rate: 81 RI: 118 QRSD: 144 QT: 450 QTc: 522 [place]: P: 37 RI: 118 QRS: 245 T: 97 INTERPRETIVE STATEMENTS: Atrial-sensed ventricular-paced rhythm Abnormal ECG No previous ECG available for comparison Electronically Signed On 07-02-19 12:45:45 [employer]ILY [employer] by Shreyas Corbin
--- OUTSIDE RECORDS SUMMARY | 2019-07-03 05:27 | XMS REPORT ---
:1955 [facility] [address] [place] [address] [address]. [address] [place] [address] Care Team Providers Name Role Phone Unavailable Unavailable Unavailable Payers Payer Name Policy Type Policy Number Effective Date Expiration Date Problems This patient has no known problems. Allergies, Adverse Reactions, Alerts Allergy Name Allergy Status Severity Reaction(s) Onset Inactive Treating Comments Type Date Date Clinician azithromycin DA Active [place] 2019-05 00:00:0 0 azithromycin DA Active [place] 2014-10 00:00:0 0 Medications This patient has no known medications. Results Test Description Test Time Test Comments Text Results Atomic Results Result Comments GLUBED 2019-06-19 13:30:00 Test Item Value Reference Range Comments GLUBED (test code=GLUBED) 179 mg/dL 74-106 Performed by certified toaster operator at [facility] [id number] 06:14:00 Test Item Value Reference Range Comments GLUBED (test code=GLUBED) 139 mg/dL 74-106 Performed by certified toaster operator at [facility] [id number] 04:42:00 Test Item Value Reference Range Comments GLUBED (test code=GLUBED) 166 mg/dL 74-106 Performed by certified toaster operator at [facility] [id number] 21:05:00 Test Item Value Reference Range Comments GLUBED (test code=GLUBED) 311 mg/dL 74-106 Performed by certified toaster operator at [facility] [id number] 17:31:00 Test Item Value Reference Range Comments GLUBED (test code=GLUBED) 200 mg/dL 74-106 Performed by certified toaster operator at [facility] [id number] 12:34:00 Test Item Value Reference Range Comments GLUBED (test code=GLUBED) 225 mg/dL 74-106 Performed by certified toaster operator at [facility] BASIC METABOLIC [id number] 07:17:00 Test Item Value Reference Range Comments SODIUM (test code=NA) 145 mmol/L 136-145 POTASSIUM (test code=K) 3.8 mmol/L 3.5-5.1 CHLORIDE (test code=CL) 109.0 mmol/L 98-107 CARBON DIOXIDE (test 28.0 mmol/L 21-32 code=CO2) ANION GAP (test code=GAP) 11.8 10-20 GLUCOSE (test code=GLU) 161 mg/dL 74-106 BLOOD UREA NITROGEN (test 46 mg/dL 7-18 code=BUN) GLOMERULAR FILTRATION RATE 23 mL/min >=60 Estimated GFR by using (test code=GFR) Modified MDRD formula.Chronic kidney disease is defined as either kidney damageor GFR <60 mL/min/1.73 m2 for >3 months. CREATININE (test code=CREAT) 2.80 mg/dL 0.7-1.3 BUN/CREATININE RATIO (test 16.4 10-20 code=BUN/CREA) CALCIUM (test code=CA) 8.8 mg/dL 8.5-10.1 [id number] 05:08:00 Test Item Value Reference Range Comments GLUBED (test code=GLUBED) 146 mg/dL 74-106 Performed by certified toaster operator at [facility] BASIC METABOLIC [id number] 03:11:00 Test Item Value Reference Range Comments SODIUM (test code=NA) 146 mmol/L 136-145 POTASSIUM (test code=K) 3.8 mmol/L 3.5-5.1 CHLORIDE (test code=CL) 110.0 mmol/L 98-107 CARBON DIOXIDE (test 29.0 mmol/L 21-32 code=CO2) ANION GAP (test code=GAP) 10.8 10-20 GLUCOSE (test code=GLU) 161 mg/dL 74-106 BLOOD UREA NITROGEN (test 53 mg/dL 7-18 code=BUN) GLOMERULAR FILTRATION RATE 23 mL/min >=60 Estimated GFR by using (test code=GFR) Modified MDRD formula.Chronic kidney disease is defined as either kidney damageor GFR <60 mL/min/1.73 m2 for >3 months. CREATININE (test code=CREAT) 2.80 mg/dL 0.7-1.3 BUN/CREATININE RATIO (test 18.9 1020 code=BUN/CREA) CALCIUM (test code=CA) 8.7 mg/dL 8.5-10.1 [id number] 03:11:00 Test Item Value Reference Range Comments MAGNESIUM (test code=MAG) 2.0 mg/dL 1.8-2.4 CBC W/O [id number] 03:02:00 Test Item Value Reference Range Comments WHITE BLOOD CELL (test code=WBC) 8.5 K/mm3 4.5-12.5 RED BLOOD CELL (test code=RBC) 3.73 mill/mm3 4.0-5.8 HEMOGLOBIN (test code=HGB) 10.7 gram/dL 13.0-17.5 HEMATOCRIT (test code=HCT) 34.6 % 42.0-52.0 MEAN CELL VOLUME (test code=MCV) 92.8 fL 80-98 MEAN CELL HGB (test code=MCH) 28.7 picogram 27.0-33.0 MEAN CELL HGB CONCETRATION (test code=MCHC) 30.9 gram/dL 33.0-36.0 RED CELL DISTRIBUTION WIDTH (test code=RDW) 14.6 % 11.6-16.2 PLATELET COUNT (test code=PLT) 214 K/mm3 150-450 MEAN PLATELET VOLUME (test code=MPV) 8.8 fL 6.7-11.0 [id number] 21:06:00 Test Item Value Reference Range Comments GLUBED (test code=GLUBED) 283 mg/dL 74-106 Performed by certified toaster operator at [facility] [id number] 18:12:00 Test Item Value Reference Range Comments GLUBED (test code=GLUBED) 207 mg/dL 74-106 Performed by certified toaster operator at [facility] [id number] 12:02:00 Test Item Value Reference Range Comments GLUBED (test code=GLUBED) 220 mg/dL 74-106 Performed by certified toaster operator at [facility] [id number] 06:47:00 Test Item Value Reference Range Comments GLUBED (test code=GLUBED) 142 mg/dL 74-106 [facility] [id number] 06:29:00 Test Item Value Reference Range Comments GLUBED (test code=GLUBED) 212 mg/dL 74-106 [facility] BASIC METABOLIC [id number] 02:36:00 Test Item Value Reference Range Comments SODIUM (test code=NA) 147 mmol/L 136-145 POTASSIUM (test code=K) 4.0 mmol/L 3.5-5.1 CHLORIDE (test code=CL) 112.0 mmol/L 98-107 CARBON DIOXIDE (test 28.0 mmol/L 21-32 code=CO2) ANION GAP (test code=GAP) 11.0 10-20 GLUCOSE (test code=GLU) 172 mg/dL 74-106 BLOOD UREA NITROGEN (test 61 mg/dL 7-18 code=BUN) GLOMERULAR FILTRATION RATE 21 mL/min >=60 Estimated GFR by using (test code=GFR) Modified MDRD formula.Chronic kidney disease is defined as either kidney damageor GFR <60 mL/min/1.73 m2 for >3 months. CREATININE (test code=CREAT) 3.00 mg/dL 0.7-1.3 BUN/CREATININE RATIO (test 20.3 1020 code=BUN/CREA) CALCIUM (test code=CA) 8.7 mg/dL 8.5-10.1 [id number] 02:36:00 Test Item Value Reference Range Comments MAGNESIUM (test code=MAG) 2.0 mg/dL 1.8-2.4 BASIC METABOLIC [id number] 02:21:00 Test Item Value Reference Range Comments SODIUM (test code=NA) 147 mmol/L 136-145 POTASSIUM (test code=K) 4.0 mmol/L 3.5-5.1 CHLORIDE (test code=CL) 112.0 mmol/L 98-107 CARBON DIOXIDE (test code=CO2) mmol/L 21-32 ANION GAP (test code=GAP) 10-20 GLUCOSE (test code=GLU) mg/dL 74-106 BLOOD UREA NITROGEN (test code=BUN) mg/dL 7-18 GLOMERULAR FILTRATION RATE (test code=GFR) mL/min >=60 CREATININE (test code=CREAT) mg/dL 0.7-1.3 BUN/CREATININE RATIO (test code=BUN/CREA) 10-20 CALCIUM (test code=CA) mg/dL 8.5-10.1 [id number] 02:21:00 Test Item Value Reference Range Comments MAGNESIUM (test code=MAG) mg/dL 1.8-2.4 CBC W/O [id number] 01:44:00 Test Item Value Reference Range Comments WHITE BLOOD CELL (test 10.7 K/mm3 4.5-12.5 code=WBC) RED BLOOD CELL (test code=RBC) 3.93 mill/mm3 4.0-5.8 HEMOGLOBIN (test code=HGB) 11.6 gram/dL 13.0-17.5 HEMATOCRIT (test code=HCT) 35.2 % 42.0-52.0 MEAN CELL VOLUME (test 89.6 fL 80-98 RESULT VERIFIED BY REPEAT code=MCV) ANALYSIS MEAN CELL HGB (test code=MCH) 29.5 picogram 27.0-33.0 MEAN CELL HGB CONCETRATION 33.0 gram/dL 33.0-36.0 (test code=MCHC) RED CELL DISTRIBUTION WIDTH 14.6 % 11.6-16.2 (test code=RDW) PLATELET COUNT (test code=PLT) 241 K/mm3 150-450 MEAN PLATELET VOLUME (test 8.7 fL 6.7-11.0 code=MPV) [id number] 17:37:00 Test Item Value Reference Range Comments GLUBED (test code=GLUBED) 274 mg/dL 74-106 Performed by certified toaster operator at [facility] [id number] 12:37:00 Test Item Value Reference Range Comments GLUBED (test code=GLUBED) 187 mg/dL 74-106 Performed by certified toaster operator at [facility] [id number] 11:42:00 Test Item Value Reference Range Comments GLUBED (test code=GLUBED) 188 mg/dL 74-106 Performed by certified toaster operator at [facility] - XR CHEST 1 [id number] 09:18:00 FAX: Reji Hernandez MD [place]: B St: ADM FAX: Asmita David DATA COMMUNICATIONS ANALYST [phone] ------ Name : BERTRAND YU [facility] : 10/1954 Age/S: 63/M [address] [facility] Unit #: [id number] Loc: V.2058 [place] [address] Phys: Asmita David DATA COMMUNICATIONS ANALYST Acct: [id number] Dis Date: Status: ADM IN PHONE #: [phone] Exam Date: 06/16/2019 08 FAX #: Reason: CHF EXAMS: CPT CODE: [id number] XR CHEST 1 V 31953 HISTORY: CHF. COMPARISON: Previous day. Left ICD is unchanged. Mild congestion. Smallbasilar effusions. Dependent changes. Small basilar effusions. Dependent changes. Cardiomegaly. IMPRESSION: Mild congestion is unchanged. at 0918 Reported and signed by: Anjum Helton M.D. CC: Reji Hernandez MD; Asmita David NP Technologist: ALETA MUHAMMAD JR Trnscrd Date/Time/By: 06/16/2019 (18 ) :By: [email or web address] Orig Print D/T: S: 06/16/2019 (16) PAGE 1 Signed ReportBASI METABOLIC [id number] 08:56 :00 Test Item Value Reference Range Comments SODIUM (test code=NA) 147 mmol/L 136-145 POTASSIUM (test code=K) 4.3 mmol/L 3.5-5.1 CHLORIDE (test code=CL) 112.0 mmol/L 98-107 CARBON DIOXIDE (test 26.0 mmol/L 21-32 code=CO2) ANION GAP (test code=GAP) 13.3 10-20 GLUCOSE (test code=GLU) 127 mg/dL 74-106 BLOOD UREA NITROGEN (test 59 mg/dL 7-18 code=BUN) GLOMERULAR FILTRATION RATE 21 mL/min >=60 Estimated GFR by using (test code=GFR) Modified MDRD formula.Chronic kidney disease is defined as either kidney damageor GFR <60 mL/min/1.73 m2 for >3 months. CREATININE (test code=CREAT) 3.00 mg/dL 0.7-1.3 BUN/CREATININE RATIO (test 19.3 10-20 code=BUN/CREA) CALCIUM (test code=CA) 8.5 mg/dL 8.5-10.1 [id number] 08:56:00 Test Item Value Reference Range Comments MAGNESIUM (test code=MAG) 2.1 mg/dL 1.8-2.4 CBC W/AUTO [id number] 08:44:00 Test Item Value Reference Range Comments WHITE BLOOD CELL (test code=WBC) 12.4 K/mm3 4.5-12.5 RED BLOOD CELL (test code=RBC) 3.90 mill/mm3 4.0-5.8 HEMOGLOBIN (test code=HGB) 11.4 gram/dL 13.0-17.5 HEMATOCRIT (test code=HCT) 36.9 % 42.0-52.0 MEAN CELL VOLUME (test code=MCV) 94.6 fL 80-98 MEAN CELL HGB (test code=MCH) 29.2 picogram 27.0-33.0 MEAN CELL HGB CONCETRATION (test code=MCHC) 30.9 gram/dL 33.0-36.0 RED CELL DISTRIBUTION WIDTH (test code=RDW) 14.8 % 11.6-16.2 RED CELL DISTRIBUTION WIDTH SD (test 49.6 fL 37.0-51.0 code=RDW-SD) PLATELET COUNT (test code=PLT) 244 K/mm3 150-450 MEAN PLATELET VOLUME (test code=MPV) 8.8 fL 6.7-11.0 NEUTROPHIL % (test code=NT%) 68.6 % 39.0-69.0 IMMATURE GRANULOCYTE % (test code=IG%) 0.6 % 0.0-5.0 LYMPHOCYTE % (test code=LY%) 18.9 % 25.0-55.0 MONOCYTE % (test code=MO%) 6.5 % 0.0-10.0 EOSINOPHIL % (test code=EO%) 4.9 % 0.0-5.0 BASOPHIL % (test code=BA%) 0.5 % 0.0-1.0 NUCLEATED RBC % (test code=NRBC%) 0.0 % 0-0 NEUTROPHIL # (test code=NT#) 8.49 K/mm3 1.8-7.7 IMMATURE GRANULOCYTE # (test code=IG#) 0.07 x10 3/uL 0-0.03 LYMPHOCYTE # (test code=LY#) 2.34 K/mm3 1.0-5.0 MONOCYTE # (test code=MO#) 0.81 K/mm3 0-0.8 EOSINOPHIL # (test code=EO#) 0.61 K/mm3 0.0-0.5 BASOPHIL # (test code=BA#) 0.06 K/mm3 0.0-0.2 NUCLEATED RBC # (test code=NRBC#) 0.00 K/mm3 0.0-0.1 [id number] 08:27:00 Test Item Value Reference Range Comments GLYCOSYLATED HEMOGLOBIN (HA1C) (test code=GLYHGB) 9.7 % HbA1 4.8-6.0 ESTIMATED AVERAGE GLUCOSE (test code=EAG) 232 MG/DL [id number] 06:14:00 Test Item Value Reference Range Comments GLUBED (test code=GLUBED) 134 mg/dL 74-106 Performed by certified toaster operator at [facility] [id number] 04:22:00 Test Item Value Reference Range Comments GLUBED (test code=GLUBED) 146 mg/dL 74-106 Performed by certified toaster operator at [facility] [id number] 21:25:00 Test Item Value Reference Range Comments GLUBED (test code=GLUBED) 179 mg/dL 74-106 Performed by certified toaster operator at [facility] UR MICROALBUMIN/CREAT [id number] 17:08:00 Test Item Value Reference Range Comments UR CREATININE RANDOM-NON REPRT 36.1 mg/dL Not Estab. (test code=CREATUT) UR MICROALBUMIN QUANT (test 1409.7 ug/mL Not Estab. Results confirmed code=MICALB) ondilution. UR MICROALB/CREAT RATIO (test 3905.0 0.0-30.0 INFCE Result Units: mg/g code=MICALB:CRE) creat Normal: 0.0 - 30.0 Albuminuria: 31.0 - 300.0 Clinical albuminuria: >300.0Performed At: [facility] [address] [id number] Preston Reynolds MD Ph:[phone] [id number] 16:47:00 Test Item Value Reference Range Comments GLUBED (test code=GLUBED) 173 mg/dL 74-106 Performed by certified toaster operator at [facility] [id number] 10:07:00 Test Item Value Reference Range Comments GLUBED (test code=GLUBED) 151 mg/dL 74-106 Performed by certified toaster operator at [facility] [id number] 07:12:00 Test Item Value Reference Range Comments TROPONIN-I (test code=TROPI) 2.350 ng/mL 0-0.045 COMMENTS TO [employer] ANALYST: COLLECT 3 HOURS AFTER PREVIOUS SAMPLE- XR CHEST 1 [id number] 06:25:00 FAX: Piter Collins [phone] [place]: B St: ADM FAX: Reji Hernandez --- Name: BERTRAND YU [facility] : 1955 Age/S: 63/M [address] [facility] Unit # : [id number] Loc: V.S06 [place] [address] Phys: Piter Collins Acct: [id number] Dis Date: Status: ADM IN PHONE #: [phone] Exam Date: 06/15/2019 05 FAX #: [phone] Reason: updatedpulm view EXAMS: CPT CODE: [id number] XR CHEST 1 V 17723 CLINICAL HISTORY: Respiratory failure, CHF TECHNIQUE: AP chest x- ray COMPARISON: Previous day. IMPRESSION: Slightly worse bilateral airspace opacification and small pleural effusions. Cardiomegaly. AICD/biventricular pacer. LOCATION : LP at 0625 Reported and signed by: Eliz Ocampo D.O. CC: Piter Collins; Reji Hernandez MD Technologist: ALETA MUHAMMAD JR; Mary Bryan Trnscrd Date/Time/By: 06/15/2019 (06) : By: [email or web address] Orig Print D/T : S: 06/15/2019 (0645) PAGE 1 Signed ReportPROCALCITONIN (PCT)2019-06-15 06:18:00 Test Item Value Reference Range Comments PROCALCITONIN (PCT) (test 0.12 ng/ml Concentration code=PROCAL) Interpretation (ng/mL) <0.51 Sepsis is not likely. Local bacterial infection is possible. (LOW RISK for progression to Sepsis) 0.51 - 2.00 Sepsis is possible, but other conditions are known to elevate PCT as well. (MODERATE RISK for progression to Sepsis) > 2.00 Sepsis is likely, unless other causes are known. (HIGH RISK for progression to Severe Sepsis or Septic Shock) 10.00 High likelihood of Severe Sepsis or Septic or higher Shock. *Increased PCT levels may not always be related to systemic bacterial infection.*Low PCT levels do not automatically exclude the presence of bacterial infection.*All results should be interpreted taking into account the patients history. COMPREHENSIVE METABOLIC [id number] 06:07:00 Test Item Value Reference Range Comments SODIUM (test code=NA) 145 mmol/L 136-145 POTASSIUM (test code=K) 4.4 mmol/L 3.5-5.1 CHLORIDE (test code=CL) 112.0 mmol/L 98-107 CARBON DIOXIDE (test 24.0 mmol/L 21-32 code=CO2) ANION GAP (test code=GAP) 13.4 10-20 GLUCOSE (test code=GLU) 194 mg/dL 74-106 BLOOD UREA NITROGEN (test 64 mg/dL 7-18 code=BUN) GLOMERULAR FILTRATION RATE 19 mL/min >=60 Estimated GFR by using (test code=GFR) Modified MDRD formula.Chronic kidney disease is defined as either kidney damageor GFR <60 mL/min/1.73 m2 for >3 months. CREATININE (test code=CREAT) 3.30 mg/dL 0.7-1.3 BUN/CREATININE RATIO (test 19.2 10-20 code=BUN/CREA) TOTAL PROTEIN (test 6.6 gram/dL 6.4-8.2 code=PROT) ALBUMIN (test code=ALB) 2.3 g/dL 3.4-5.0 GLOBULIN (test code=GLOB) 4.3 gram/dL 2.7-4.2 ALBUMIN/GLOBULIN RATIO (test 0.5 0.75-1.50 code=A/G) CALCIUM (test code=CA) 8.7 mg/dL 8.5-10.1 BILIRUBIN TOTAL (test 0.40 mg/dL 0.0-1.0 code=BILT) SGOT/AST (test code=AST) 11 IUnit/L 15-37 SGPT/ALT (test code=ALT) 30 IUnit/L 12-78 ALKALINE PHOSPHATASE TOTAL 151 IUnit/L 45-117 Note change in reference (test code=ALKP) range due to change in reagent. [id number] 06:07:00 Test Item Value Reference Range Comments MAGNESIUM (test code=MAG) 2.2 mg/dL 1.8-2.4 [id number] 05:29:00 Test Item Value Reference Range Comments GLUBED (test code=GLUBED) 180 mg/dL 74-106 Performed by certified toaster operator at [facility] CBC W/AUTO [id number] 05:09:00 Test Item Value Reference Range Comments WHITE BLOOD CELL (test code=WBC) 15.4 K/mm3 4.5-12.5 RED BLOOD CELL (test code=RBC) 3.84 mill/mm3 4.0-5.8 HEMOGLOBIN (test code=HGB) 11.2 gram/dL 13.0-17.5 HEMATOCRIT (test code=HCT) 36.0 % 42.0-52.0 MEAN CELL VOLUME (test code=MCV) 93.8 fL 80-98 MEAN CELL HGB (test code=MCH) 29.2 picogram 27.0-33.0 MEAN CELL HGB CONCETRATION (test code=MCHC) 31.1 gram/dL 33.0-36.0 RED CELL DISTRIBUTION WIDTH (test code=RDW) 14.9 % 11.6-16.2 RED CELL DISTRIBUTION WIDTH SD (test 48.7 fL 37.0-51.0 code=RDW-SD) PLATELET COUNT (test code=PLT) 257 K/mm3 150-450 MEAN PLATELET VOLUME (test code=MPV) 8.6 fL 6.7-11.0 NEUTROPHIL % (test code=NT%) 79.8 % 39.0-69.0 IMMATURE GRANULOCYTE % (test code=IG%) 0.8 % 0.0-5.0 LYMPHOCYTE % (test code=LY%) 12.9 % 25.0-55.0 MONOCYTE % (test code=MO%) 5.2 % 0.0-10.0 EOSINOPHIL % (test code=EO%) 0.9 % 0.0-5.0 BASOPHIL % (test code=BA%) 0.4 % 0.0-1.0 NUCLEATED RBC % (test code=NRBC%) 0.0 % 0-0 NEUTROPHIL # (test code=NT#) 12.29 K/mm3 1.8-7.7 IMMATURE GRANULOCYTE # (test code=IG#) 0.12 x10 3/uL 0-0.03 LYMPHOCYTE # (test code=LY#) 1.98 K/mm3 1.0-5.0 MONOCYTE # (test code=MO#) 0.80 K/mm3 0-0.8 EOSINOPHIL # (test code=EO#) 0.14 K/mm3 0.0-0.5 BASOPHIL # (test code=BA#) 0.06 K/mm3 0.0-0.2 NUCLEATED RBC # (test code=NRBC#) 0.00 K/mm3 0.0-0.1 [id number] 21:16:00 Test Item Value Reference Range Comments GLUBED (test code=GLUBED) 186 mg/dL 74-106 Performed by certified toaster operator at [facility] [id number] 16:21:00 Test Item Value Reference Range Comments GLUBED (test code=GLUBED) 229 mg/dL 74-106 Performed by certified toaster operator at [facility] UR SMEAR EOSINOPHIL [id number] 16:03:00 Test Item Value Reference Range Comments UR SMEAR EOSINOPHIL COUNT (test NONE SEEN per HPF NONE SEEN code=EOSCTU) UR NA,[id number] 16:03:00 Test Item Value Reference Range Comments UR NA,RANDOM (test code=NOEMÍ) 113 mmol/L 20-110 UR CHLORIDE [id number] 16:03:00 Test Item Value Reference Range Comments UR CHLORIDE RANDOM (test code=CLU) 118 mEq/L UR PROTEIN/CREATININE [id number] 16:03:00 Test Item Value Reference Range Comments UR PROTEIN RANDOM (test 271.2 mg/dL 0.0-11.9 Protein levels may be falsely code=PROTU) elevated in patients withelevated level of aminoglycoside antibiotics in CSF and inhighly concentrated urine specimens. If false elevation issuspected, contact lab for alternated testing technique. UR CREATININE RANDOM (test 34.0 mg/dL 30-125 code=CREATU) PROTEIN/CREATININE RATIO 7.98 RATIO 0.0-0.20 (test code=P/CRATIO) UR SMEAR EOSINOPHIL [id number] 15:08:00 Test Item Value Reference Range Comments UR SMEAR EOSINOPHIL COUNT (test code=EOSCTU) per HPF NONE SEEN UR NA,[id number] 15:08:00 Test Item Value Reference Range Comments UR NA,RANDOM (test code=NOEMÍ) 113 mmol/L 20-110 UR CHLORIDE [id number] 15:08:00 Test Item Value Reference Range Comments UR CHLORIDE RANDOM (test code=CLU) 118 mEq/L UR PROTEIN/CREATININE [id number] 15:08:00 Test Item Value Reference Range Comments UR PROTEIN RANDOM (test 271.2 mg/dL 0.0-11.9 Protein levels may be falsely code=PROTU) elevated in patients withelevated level of aminoglycoside antibiotics in CSF and inhighly concentrated urine specimens. If false elevation issuspected, contact lab for alternated testing technique. UR CREATININE RANDOM (test 34.0 mg/dL 30-125 code=CREATU) PROTEIN/CREATININE RATIO 7.98 RATIO 0.0-0.20 (test code=P/CRATIO) UR SMEAR EOSINOPHIL [id number] 14:58:00 Test Item Value Reference Range Comments UR SMEAR EOSINOPHIL COUNT (test code=EOSCTU) per HPF NONE SEEN UR NA,[id number] 14:58:00 Test Item Value Reference Range Comments UR NA,RANDOM (test code=NOEMÍ) 113 mmol/L 20-110 UR CHLORIDE [id number] 14:58:00 Test Item Value Reference Range Comments UR CHLORIDE RANDOM (test code=CLU) 118 mEq/L UR PROTEIN/CREATININE [id number] 14:58:00 Test Item Value Reference Range Comments UR PROTEIN RANDOM (test code=PROTU) mg/dL 0.0-11.9 UR CREATININE RANDOM (test code=CREATU) mg/dL 30-125 PROTEIN/CREATININE RATIO (test code=P/CRATIO) RATIO 0.0-0.20 [id number] 13:09:00 Test Item Value Reference Range Comments GLUBED (test code=GLUBED) 214 mg/dL 74-106 Performed by certified toaster operator at [facility] URINALYSIS [id number] 11:40:00 Test Item Value Reference Range Comments UA COLOR (test code=COLU) COLORLESS YELLOW UA APPEARANCE (test code=APPU) CLEAR CLEAR UA GLUCOSE DIPSTICK (test 50 (Trace) mg/dL NEGATIVE code=DGLUU) UA BILIRUBIN DIPSTICK (test NEGATIVE mg/dL NEGATIVE code=BILU) UA KETONE DIPSTICK (test code=KETU) NEGATIVE mg/dL NEGATIVE UA SPECIFIC GRAVITY (test code=SGU) 1.009 1.001-1.035 UA BLOOD DIPSTICK (test code=HENNY) 0.03 mg/dL (Trace) mg/dL NEGATIVE UA PH DIPSTICK (test code=MAGALY) 5.5 5.0-8.0 UA PROTEIN DIPSTICK (test 200 (2+) mg/dL NEGATIVE code=PROU) UA UROBILINIOGEN DIPSTICK (test Normal mg/dL NEGATIVE code=URO) UA NITRITE DIPSTICK (test NEGATIVE NEGATIVE code=KENDAL) UA LEUKOCYTE ESTERASE W REFLEX NEGATIVE Aster/uL NEGATIVE (test code=LEUUR) UA WBC (test code=WBCU) 0-5 per HPF 0-5 UA RBC (test code=RBCU) NONE SEEN per HPF 0-5 UA EPITHELIAL CELLS (test FEW per HPF FEW code=EPIU) UA BACTERIA (test code=BACU) FEW #/HPF NONE UA HYALINE CAST (test code=HYALU) 3-5 #/LPF 0-5 Urine Source? Clean [id number] 11:38:00 Test Item Value Reference Range Comments GLUBED (test code=GLUBED) 203 mg/dL 74-106 Performed by certified toaster operator at [facility] URINALYSIS [id number] 11:35:00 Test Item Value Reference Range Comments UA COLOR (test code=COLU) COLORLESS YELLOW UA APPEARANCE (test code=APPU) CLEAR CLEAR UA GLUCOSE DIPSTICK (test 50 (Trace) mg/dL NEGATIVE code=DGLUU) UA BILIRUBIN DIPSTICK (test NEGATIVE mg/dL NEGATIVE code=BILU) UA KETONE DIPSTICK (test code=KETU) NEGATIVE mg/dL NEGATIVE UA SPECIFIC GRAVITY (test code=SGU) 1.009 1.001-1.035 UA BLOOD DIPSTICK (test code=HENNY) 0.03 mg/dL (Trace) mg/dL NEGATIVE UA PH DIPSTICK (test code=MAGALY) 5.5 5.0-8.0 UA PROTEIN DIPSTICK (test 200 (2+) mg/dL NEGATIVE code=PROU) UA UROBILINIOGEN DIPSTICK (test Normal mg/dL NEGATIVE code=URO) UA NITRITE DIPSTICK (test NEGATIVE NEGATIVE code=KENDAL) UA LEUKOCYTE ESTERASE W REFLEX NEGATIVE Aster/uL NEGATIVE (test code=LEUUR) UA WBC (test code=WBCU) per HPF 0-5 UA RBC (test code=RBCU) per HPF 0-5 UA EPITHELIAL CELLS (test per HPF Few code=EPIU) UA BACTERIA (test code=BACU) per HPF NONE Urine Source? Clean [id number] 07:40:00 Test Item Value Reference Range Comments TROPONIN-I (test code=TROPI) 1.380 ng/mL 0-0.045 SPECIMEN COMMENTS: 0200 LAB- XR CHEST 1 [id number] 07:30:00 FAX: Piter Collins [phone] [place]: B St: ADM FAX: Iloanya,Nkoli IMD Name: BERTRAND YU [facility] : 1955 Age/S: 63/M [address] [facility] Unit #: [id number] Loc: V.S06 [place] [address] Phys: Piter Collins Acct: [id number] Dis Date: Status: ADM IN PHONE #: [phone] Exam Date: 06/14/2019 0649 FAX #: [phone] Reason: updatedpulm view. EXAMS: CPT CODE: [id number] XR CHEST 1 V 64832 CLINICAL HISTORY: Respiratory failure, CHF TECHNIQUE: AP chest x -ray COMPARISON: Previous day. IMPRESSION: Improved patchy bilateral airspace opacification or pulmonary congestion. Small bilateral pleural effusions. Cardiomegaly. AICD/ biventricular pacer. LOCATION: LP at 0730 Reported and signed by: Eliz Ocampo D.O. CC: Piter Collins; Reji Hernandez MD Technologist: Chanell Anderson(Eric) Trnscrd Date/Time/By: 2018 (0730) : By: [email or web address] Orig Print D/T: S: 06/14/2019 (0728) PAGE 1 Signed ReportBASIC METABOLIC [id number] 03:27:00 Test Item Value Reference Range Comments SODIUM (test code=NA) 147 mmol/L 136-145 POTASSIUM (test code=K) 4.6 mmol/L 3.5-5.1 CHLORIDE (test code=CL) 116.0 mmol/L 98-107 CARBON DIOXIDE (test code=CO2) mmol/L 21-32 ANION GAP (test code=GAP) 10-20 GLUCOSE (test code=GLU) mg/dL 74-106 BLOOD UREA NITROGEN (test code=BUN) mg/dL 7-18 GLOMERULAR FILTRATION RATE (test code=GFR) mL/min >=60 CREATININE (test code=CREAT) mg/dL 0.7-1.3 BUN/CREATININE RATIO (test code=BUN/CREA) 10-20 CALCIUM (test code=CA) mg/dL 8.5-10.1 [id number] 03:27:00 Test Item Value Reference Range Comments MAGNESIUM (test code=MAG) mg/dL 1.8-2.4 BASIC METABOLIC [id number] 03:27:00 Test Item Value Reference Range Comments SODIUM (test code=NA) 147 mmol/L 136-145 POTASSIUM (test code=K) 4.6 mmol/L 3.5-5.1 CHLORIDE (test code=CL) 116.0 mmol/L 98-107 CARBON DIOXIDE (test 22.0 mmol/L 21-32 code=CO2) ANION GAP (test code=GAP) 13.6 10-20 GLUCOSE (test code=GLU) 229 mg/dL 74-106 BLOOD UREA NITROGEN (test 51 mg/dL 7-18 code=BUN) GLOMERULAR FILTRATION RATE 24 mL/min >=60 Estimated GFR by using (test code=GFR) Modified MDRD formula.Chronic kidney disease is defined as either kidney damageor GFR <60 mL/min/1.73 m2 for >3 months. CREATININE (test code=CREAT) 2.70 mg/dL 0.7-1.3 BUN/CREATININE RATIO (test 18.8 1020 code=BUN/CREA) CALCIUM (test code=CA) 7.3 mg/dL 8.5-10.1 [id number] 03:27:00 Test Item Value Reference Range Comments MAGNESIUM (test code=MAG) 2.0 mg/dL 1.8-2.4 CBC W/O [id number] 03:06:00 Test Item Value Reference Range Comments WHITE BLOOD CELL (test code=WBC) 11.6 K/mm3 4.5-12.5 RED BLOOD CELL (test code=RBC) 3.90 mill/mm3 4.0-5.8 HEMOGLOBIN (test code=HGB) 11.3 gram/dL 13.0-17.5 HEMATOCRIT (test code=HCT) 36.4 % 42.0-52.0 MEAN CELL VOLUME (test code=MCV) 93.3 fL 80-98 MEAN CELL HGB (test code=MCH) 29.0 picogram 27.0-33.0 MEAN CELL HGB CONCETRATION (test code=MCHC) 31.0 gram/dL 33.0-36.0 RED CELL DISTRIBUTION WIDTH (test code=RDW) 14.6 % 11.6-16.2 PLATELET COUNT (test code=PLT) 221 K/mm3 150-450 MEAN PLATELET VOLUME (test code=MPV) 8.8 fL 6.7-11.0 [id number] 00:03:00 Test Item Value Reference Range Comments TROPONIN-I (test 1.480 ng/mL 0-0.045 RESULT VERIFIED BY REPEAT code=TROPI) ANALYSIS COMMENTS TO [employer] ANALYST: COLLECT 3 HOURS AFTER PREVIOUS SAMPLE- US RETRO [id number] 18:28:00 Name: BERTRAND YU [facility] : 1955 Age/S: 63 / M [address] [facility] Unit #: [id number] Loc: [place] [address] Phys: Reji Hernandez MD Acct: [id number] Dis Date: Status : ADM IN PHONE #: [phone] Exam Date: 06/13/2019 1703 FAX #: [phone] Reason: ckd EXAMS: CPTCODE: [id number] US RETRO LTD 06[address] REASON FOR EXAM: ckd EXAM ORDER DATE: 06/13/2019 3:06 PM Attending M.D.: Reji Hernandez MD PROCEDURE: - US RETRO LTD Comparison: None FINDINGS: Right kidney: parenchyma echogenicity: Normal echogenicity size: 12.5 x 6.5 x 4.4 cm. stones: Echogenic foci are seen. The largest measures 1.2 x 0.4 x 1.0 cm in size. This likely represents a stone. cysts/masses: none hydronephrosis: none Left kidney: parenchyma echogenicity: Normal echogenicity size: 12.7 x 7.0 x 4.8 cm. stones: none cysts/masses: none hydronephrosis : none Urinary Bladder: Ureteral jets: Not visualized Intraluminal masses/debris: None Wallthickness: Normal Outpouching : None IMPRESSION: Nonobstructive stone in the right kidney. Left kidney is within normal limits. Location: [facility] Electronically Signed by Yoandy Calero MD on 2018 at 1828 Reported and signed by: Yoandy Calero MD PAGE 1 Signed Report (CONTINUED) [facility] 1955 Age[facility]S: 63 / M [address] [facility] Unit #: [id number] Loc: [place] [address] Phys: Reji Hernandez MD Acct : [id number] Dis Date: Status: ADM IN PHONE #: [phone] Exam Date: 06/13/2019 1703 FAX #: [phone] Reason: ckd EXAMS: CPT CODE: [id number] [facility] [address] <Continued> CC: Krystina Kowalski MD; Reji Hernandez MD Technologist: Ladi Ruiz RDMS Trnkyb Date/Time: 06/13/2019 (1827) [email or web address] Orig Print D/T: S: 06/13/2019 (183) Probe : PAGE 2 Signed ReportPROTHROMBIN [id number] 14: 57:00 Test Item Value Reference Range Comments PROTHROMBIN TIME PATIENT 13.2 seconds 9.0-14.0 (test code=PTP) INTERNATIONAL NORMAL RATIO 1.1 0.8-1.2 The therapeutic range for (test code=INR) oral anticoagulant therapy formost indications is an international normalized ratio (INR)of between 2.0 and 3.0. The recommended therapeutic INRrange for various clinical situations is listed below: Clinical Situation INR range ____ Pulmonary embolism treatment (2.0-3.0)Venous thrombosis treatmentVenous thrombosis prophylaxis (high risk surgery)Prevention of systemic embolism from: Acute myocardial infarction Valvular heart disease Atrial fibrillation Mechanical prosthetic heart valves (2.5-3.5) IS PATIENT ON ANTICOAGULANTS? NTHROMBOPLASTIN TIME [id number] 14:57:00 Test Item Value Reference Range Comments THROMBOPLASTIN TIME PARTIAL (test code=PTT) 47.3 seconds 25.0-36.5 IS PATIENT ON ANTICOAGULANTS? [id number] 14:57:00 Test Item Value Reference Range Comments D-DIMER (test 59008.00 ng/mLFEU 0-500 RESULT VERIFIED BY REPEAT code=DDIMER) ANALYSISCritical results verified and read back by Nurse? YClinical Cut-off value for D-Dimer is 500 ng/mL FEU. Comment: The [employer] D-Dimer assay is intended for use asan aid in the diagnosis of venous thromboembolism (VTE)[deep vein thrombosis (DVT) or pulmonary embolism (PE)].The measurement of D-Dimer should not be used as an aid inthe diagnosis of VTE, in patient with: -Therapeutic dose anticoagulant therapy for >24 hours -Fibrinolytic therapy within previous 7 days -Trauma or surgery within previous 4 weeks -Disseminated malignancies -Aortic aneurysm -Sepsis, severe infections, pneumonia, severe skin infections -Liver cirrhosis - IS PATIENT ON ANTICOAGULANTS? NB-TYPE NATRIURETIC [id number] 14:38:00 Test Item Value Reference Range Comments B-TYPE NATRIURETIC PEPTIDE (test code=BNP) 1317.60 pgram/mL 0-100 BASIC METABOLIC [id number] 14:36:00 Test Item Value Reference Range Comments SODIUM (test code=NA) 144 mmol/L 136-145 POTASSIUM (test code=K) 4.6 mmol/L 3.5-5.1 CHLORIDE (test code=CL) 110.0 mmol/L 98-107 CARBON DIOXIDE (test 26.0 mmol/L 21-32 code=CO2) ANION GAP (test code=GAP) 12.6 10-20 GLUCOSE (test code=GLU) 230 mg/dL 74-106 BLOOD UREA NITROGEN (test 52 mg/dL 7-18 code=BUN) GLOMERULAR FILTRATION RATE 20 mL/min >=60 Estimated GFR by using (test code=GFR) Modified MDRD formula.Chronic kidney disease is defined as either kidney damageor GFR <60 mL/min/1.73 m2 for >3 months. CREATININE (test code=CREAT) 3.20 mg/dL 0.7-1.3 BUN/CREATININE RATIO (test 16.2 20 code=BUN/CREA) CALCIUM (test code=CA) 8.6 mg/dL 8.5-10.1 HEPATIC FUNCTION [id number] 14:36:00 Test Item Value Reference Range Comments TOTAL PROTEIN (test code=PROT) 7.2 gram/dL 6.4-8.2 ALBUMIN (test code=ALB) 2.4 g/dL 3.4-5.0 GLOBULIN (test code=GLOB) 4.8 gram/dL 2.7-4.2 ALBUMIN/GLOBULIN RATIO (test 0.5 0.75-1.50 code=A/G) BILIRUBIN TOTAL (test 0.50 mg/dL 0.0-1.0 code=BILT) BILIRUBIN DIRECT (test 0.13 mg/dL 0.0-0.20 code=BILD) SGOT/AST (test code=AST) 26 IUnit/L 15-37 SGPT/ALT (test code=ALT) 53 IUnit/L 12-78 ALKALINE PHOSPHATASE TOTAL 187 IUnit/L 45-117 Note change in reference (test code=ALKP) range due to change in reagent. CREATINE KINASE (CK)2019-06-13 14:36:00 Test Item Value Reference Range Comments CREATINE KINASE (CK) (test code=CK) 105 IUnit/L 26-208 [id number] 14:36:00 Test Item Value Reference Range Comments LIPASE (test code=LIP) 241 U/L 73.0-393.0 [id number] 14:36:00 Test Item Value Reference Range Comments MAGNESIUM (test code=MAG) 2.3 mg/dL 1.8-2.4 [id number] 14:36:00 Test Item Value Reference Range Comments TROPONIN-I (test 1.890 ng/mL 0-0.045 Results called to [id number] by code=TROPI) V.LAB.KA 06/13/19 1433Critical results verified and read back by Nurse? Y LACTIC [id number] 14:27:00 Test Item Value Reference Range Comments LACTIC ACID (test code=LACT) 0.9 mmol/L 0.4-1.9 BASIC METABOLIC [id number] 14:16:00 Test Item Value Reference Range Comments SODIUM (test code=NA) 144 mmol/L 136-145 POTASSIUM (test code=K) 4.6 mmol/L 3.5-5.1 CHLORIDE (test code=CL) 110.0 mmol/L 98-107 CARBON DIOXIDE (test code=CO2) mmol/L 21-32 ANION GAP (test code=GAP) 10-20 GLUCOSE (test code=GLU) mg/dL 74-106 BLOOD UREA NITROGEN (test code=BUN) mg/dL 7-18 GLOMERULAR FILTRATION RATE (test code=GFR) mL/min >=60 CREATININE (test code=CREAT) mg/dL 0.7-1.3 BUN/CREATININE RATIO (test code=BUN/CREA) 10-20 CALCIUM (test code=CA) mg/dL 8.5-10.1 HEPATIC FUNCTION [id number] 14:16:00 Test Item Value Reference Range Comments TOTAL PROTEIN (test code=PROT) gram/dL 6.4-8.2 ALBUMIN (test code=ALB) g/dL 3.4-5.0 GLOBULIN (test code=GLOB) gram/dL 2.7-4.2 ALBUMIN/GLOBULIN RATIO (test code=A/G) 0.75-1.50 BILIRUBIN TOTAL (test code=BILT) mg/dL 0.0-1.0 BILIRUBIN DIRECT (test code=BILD) mg/dL 0.0-0.20 SGOT/AST (test code=AST) IUnit/L 15-37 SGPT/ALT (test code=ALT) IUnit/L 12-78 ALKALINE PHOSPHATASE TOTAL (test code=ALKP) IUnit/L 45-117 CREATINE KINASE (CK)2019-06-13 14:16:00 Test Item Value Reference Range Comments CREATINE KINASE (CK) (test code=CK) IUnit/L 26-208 [id number] 14:16:00 Test Item Value Reference Range Comments LIPASE (test code=LIP) U/L 73.0-393.0 [id number] 14:16:00 Test Item Value Reference Range Comments MAGNESIUM (test code=MAG) mg/dL 1.8-2.4 [id number] 14:16:00 Test Item Value Reference Range Comments TROPONIN-I (test code=TROPI) ng/mL 0-0.045 CBC W/AUTO [id number] 14:10:00 Test Item Value Reference Range Comments WHITE BLOOD CELL (test code=WBC) 15.6 K/mm3 4.5-12.5 RED BLOOD CELL (test code=RBC) 4.06 mill/mm3 4.0-5.8 HEMOGLOBIN (test code=HGB) 11.8 gram/dL 13.0-17.5 HEMATOCRIT (test code=HCT) 38.6 % 42.0-52.0 MEAN CELL VOLUME (test code=MCV) 95.1 fL 80-98 MEAN CELL HGB (test code=MCH) 29.1 picogram 27.0-33.0 MEAN CELL HGB CONCETRATION (test code=MCHC) 30.6 gram/dL 33.0-36.0 RED CELL DISTRIBUTION WIDTH (test code=RDW) 14.6 % 11.6-16.2 RED CELL DISTRIBUTION WIDTH SD (test 49.1 fL 37.0-51.0 code=RDW-SD) PLATELET COUNT (test code=PLT) 255 K/mm3 150-450 MEAN PLATELET VOLUME (test code=MPV) 8.6 fL 6.7-11.0 NEUTROPHIL % (test code=NT%) 70.4 % 39.0-69.0 IMMATURE GRANULOCYTE % (test code=IG%) 1.9 % 0.0-5.0 LYMPHOCYTE % (test code=LY%) 19.7 % 25.0-55.0 MONOCYTE % (test code=MO%) 4.3 % 0.0-10.0 EOSINOPHIL % (test code=EO%) 3.2 % 0.0-5.0 BASOPHIL % (test code=BA%) 0.5 % 0.0-1.0 NUCLEATED RBC % (test code=NRBC%) 0.2 % 0-0 NEUTROPHIL # (test code=NT#) 10.99 K/mm3 1.8-7.7 IMMATURE GRANULOCYTE # (test code=IG#) 0.29 x10 3/uL 0-0.03 LYMPHOCYTE # (test code=LY#) 3.08 K/mm3 1.0-5.0 MONOCYTE # (test code=MO#) 0.67 K/mm3 0-0.8 EOSINOPHIL # (test code=EO#) 0.50 K/mm3 0.0-0.5 BASOPHIL # (test code=BA#) 0.08 K/mm3 0.0-0.2 NUCLEATED RBC # (test code=NRBC#) 0.03 K/mm3 0.0-0.1 - XR CHEST 1 [id number] 14:01:00 FAX: Krystina aBnda [phone] [place]: St: PRE Name: BERTRAND YU [facility] : 1955 Age/S: 63/M [address] [facility] Unit#: [id number] Loc: [place] [address] Phys: Krystina Kowalski MD Acct: [id number] Dis Date: Status: PRE ER PHONE #: [phone] Exam Date: 06/13/2019 1350 FAX #: [phone] Reason: SHORTNESS OF BREATH EXAMS: CPT CODE: [id number] XR CHEST 1 V 85615 HISTORY: Shortness of breath. COMPARISON: None available. Left ICD with the leads in the right atrium and right ventricle patchy right infiltrate. Left basal infiltrate as well. Dependent changes. No effusion. Cardiomegaly. IMPRESSION: Patchy bilateral infiltrates, greater on the right. at 1401 Reported and signed by: Anjum Helton M.D. CC: Krystina Kowalski MD Technologist: RT LATONYA(R) Trnscrd Date/Time/By: 06/13/2019 (1401) : By: [email or web address] Orig Print D/T : S: 06/13/2019 (5070) PAGE 1 Signed ReportARTERIAL BLOOD [id number] 13:59:00 Test Item Value Reference Range Comments ARTERIAL BLOOD GAS PH (test 7.21 7.35-7.45 code=PHA) ARTERIAL BLOOD GAS PCO2 (test 62.9 mm Hg 35-45 code=PCO2A) ARTERIAL BLOOD GAS PO2 (test 117.7 mmHg 80-100 code=PO2A) BICARBONATE TOTAL HCO3 (test 24.8 mmol/L 23.0-27.0 code=HCO3) BASE EXCESS (test code=RANGEL) -4.0 mmol/L -3.0-5.0 Results called to and read back by 13:57 - 06/13/2019; by SVITLANA ABG O2 SATURATION (test 97.4 % 90.0-98.0 code=SATA) ABG TYPE (test code=TYPEA) Arterial FIO2 (test code=FIO2A) 100.0 ABG VENT MODE (test code=MODEA) BiPAP ABG VENT RESP RATE (test 18.0 per min code=RRA) ABG PEEP (test code=PEEPA) 5.0 cmH2O ABG SITE (test code=SITEA) Rt RADIAL ARTERY MODIFIED ALLENS (test Yes CHECK PERFORMED code=MODALL) SODIUM (test code=NA/ABG) 141.0 mEq/L 135-148 POTASSIUM (test code=K/ABG) 4.8 mEq/L 3.5-4.5 CHLORIDE (test code=CL/ABG) 107 mEq/L 98-106 GLUCOSE (test code=GLU/ABG) 249 mg/dL 74-99 HEMATOCRIT (test code=HCT/ABG) 39 % 42-52 IONIZED CALCIUM (test 1.22 mmol/L 1.1-1.37 code=CAIABG) TOTAL HGB (test code=THB) 13.1 gram/dL 13.0-17.5 HGB O2 SAT (test code=HBOSAT) 96.6 % 94.00-98.00 CARBOXYHEMOGLOBIN (test 0.5 %totalHg 0.5-1.5 code=HOHGBT) METHEMOGLOBIN (test 0.3 % 0.0-1.50 code=METHGB) O2 CONTENT (test code=O2CT) 18.0 % vol 18.0-22.0
== END 2019-07-02 13:56 | disposition home or self-care (01) | DRG 291 ==
LOC: ER 13:14 → ERHOLD 14:38 → 4TH 16:17
PROVIDERS: ADMIT Internal Medicine; ATTEND Internal Medicine
PROC: 5A09357 Assistance with Respiratory Ventilation, Less than 24 Consecutive Hours, Continuous Positive Airway Pressure (ICD-10-PCS; principal; 2019-06-30)
DX: I13.0 Hypertensive heart and chronic kidney disease with heart failure and stage 1 through stage 4 chronic kidney disease, or unspecified chronic kidney disease (principal); I50.23 Acute on chronic systolic (congestive) heart failure; J96.01 Acute respiratory failure with hypoxia; Z68.41 Body mass index [BMI] 40.0-44.9, adult; N18.3 Chronic kidney disease, stage 3 (moderate); E11.22 Type 2 diabetes mellitus with diabetic chronic kidney disease; I48.91 Unspecified atrial fibrillation; Z95.0 Presence of cardiac pacemaker; I25.10 Atherosclerotic heart disease of native coronary artery without angina pectoris; Z87.891 Personal history of nicotine dependence; E66.9 Obesity, unspecified; E78.5 Hyperlipidemia, unspecified; Z23 Encounter for immunization
CPT/HCPCS: 36415; 71045; 71250; 80048; 80076; 81015; 82550; 82553; 82947; 83605; 83690; 83735; 83880; 84100; 84145; 84484; 85025; 85610; 85730; 87040; 90471; 93005; 94660; 96374; 96375; 99291; J1650; J1815; J1940; J2270; Q2035

== ENCOUNTER 2019-09-08 17:01 | Observation (INO) | payer OTHER ==
--- OUTSIDE RECORDS SUMMARY | 2019-09-08 17:05 | XMS REPORT ---
:1955 [facility] Address [address] [place] [address] [address]. [address] [place] [address] Care Team Providers Name Role Phone Unavailable Unavailable Unavailable Payers Payer Name Policy Type Policy Number Effective Date Expiration Date Problems This patient has no known problems. Allergies, Adverse Reactions, Alerts Allergy Name Allergy Status Severity Reaction(s) Onset Inactive Treating Comments Type Date Date Clinician azithromycin DA Active CO 2019-05 00:00:0 0 azithromycin DA Active CO 2014-10 00:00:0 0 Medications This patient has no known medications. Results Test Description Test Time Test Comments Text Results Atomic Results Result Comments GLUBED 2019-06-19 13:30:00 Test Item Value Reference Range Comments GLUBED (test code=GLUBED) 179 mg/dL 74-106 Performed by certified ride operator at [facility] [id number] 06:14:00 Test Item Value Reference Range Comments GLUBED (test code=GLUBED) 139 mg/dL 74-106 Performed by certified ride operator at [facility] [id number] 04:42:00 Test Item Value Reference Range Comments GLUBED (test code=GLUBED) 166 mg/dL 74-106 Performed by certified ride operator at [facility] [id number] 21:05:00 Test Item Value Reference Range Comments GLUBED (test code=GLUBED) 311 mg/dL 74-106 Performed by certified ride operator at [facility] [id number] 17:31:00 Test Item Value Reference Range Comments GLUBED (test code=GLUBED) 200 mg/dL 74-106 Performed by certified ride operator at [facility] [id number] 12:34:00 Test Item Value Reference Range Comments GLUBED (test code=GLUBED) 225 mg/dL 74-106 Performed by certified ride operator at [facility] BASIC METABOLIC [id number] 07:17:00 Test Item Value Reference Range Comments [...] code=BUN/CREA) CALCIUM (test code=CA) 8.8 mg/dL 8.5-10.1 [id number] 05:08:00 Test Item Value Reference Range Comments GLUBED (test code=GLUBED) 146 mg/dL 74-106 Performed by certified ride operator at [facility] BASIC METABOLIC [id number] 03:11:00 Test Item Value Reference Range Comments [...] 2.80 mg/dL 0.7-1.3 BUN/CREATININE RATIO (test 18.9 20 code=BUN/CREA) CALCIUM (test code=CA) 8.7 mg/dL 8.5-10.1 [id number] 03:11:00 Test Item Value Reference Range Comments MAGNESIUM (test code=MAG) 2.0 mg/dL 1.8-2.4 CBC W/O [id number] 03:02:00 Test Item Value Reference Range Comments [...] PLATELET VOLUME (test code=MPV) 8.8 fL 6.7-11.0 [id number] 21:06:00 Test Item Value Reference Range Comments GLUBED (test code=GLUBED) 283 mg/dL 74-106 Performed by certified ride operator at [facility] [id number] 18:12:00 Test Item Value Reference Range Comments GLUBED (test code=GLUBED) 207 mg/dL 74-106 Performed by certified ride operator at [facility] [id number] 12:02:00 Test Item Value Reference Range Comments GLUBED (test code=GLUBED) 220 mg/dL 74-106 Performed by certified ride operator at [facility] [id number] 06:47:00 Test Item Value Reference Range Comments GLUBED (test code=GLUBED) 142 mg/dL 74-106 [facility] [id number] 06:29:00 Test Item Value Reference Range Comments GLUBED (test code=GLUBED) 212 mg/dL 74-106 [facility] BASIC METABOLIC [id number] 02:36:00 Test Item Value Reference Range Comments [...] 3.00 mg/dL 0.7-1.3 BUN/CREATININE RATIO (test 20.3 20 code=BUN/CREA) CALCIUM (test code=CA) 8.7 mg/dL 8.5-10.1 [id number] 02:36:00 Test Item Value Reference Range Comments MAGNESIUM (test code=MAG) 2.0 mg/dL 1.8-2.4 BASIC METABOLIC [id number] 02:21:00 Test Item Value Reference Range Comments [...] code=BUN/CREA) 10-20 CALCIUM (test code=CA) mg/dL 8.5-10.1 [id number] 02:21:00 Test Item Value Reference Range Comments MAGNESIUM (test code=MAG) mg/dL 1.8-2.4 CBC W/O [id number] 01:44:00 Test Item Value Reference Range Comments [...] PLATELET VOLUME (test 8.7 fL 6.7-11.0 code=MPV) [id number] 17:37:00 Test Item Value Reference Range Comments GLUBED (test code=GLUBED) 274 mg/dL 74-106 Performed by certified ride operator at [facility] [id number] 12:37:00 Test Item Value Reference Range Comments GLUBED (test code=GLUBED) 187 mg/dL 74-106 Performed by certified ride operator at [facility] [id number] 11:42:00 Test Item Value Reference Range Comments GLUBED (test code=GLUBED) 188 mg/dL 74-106 Performed by certified ride operator at [facility] - XR CHEST 1 [id number] 09:18:00 FAX: Reji Hernandez MD [place]: B St: ADM FAX: Asmita David NP [phone] ------ Name : [facility] : 10/1954 Age/S: 63/M [address] [facility] Unit #: [id number] Loc: V.2058 [place] [address] Phys: Asmita David 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 COMPARISON: Previous day. Left ICD is unchanged. Mild congestion. Smallbasilar effusions. Dependent changes. Small basilar effusions. Dependent changes. Cardiomegaly. IMPRESSION: Mild congestion is unchanged. at 0918 Reported and signed by: Anjum Helton M.D. CC: Reji Hernandez MD; Asmita David NP Technologist: ALETA MUHAMMAD JR Trnscrd Date/Time/By: 06/16/2019 (0918 ) :By: [email or web address] Orig Print D/T: S: 06/16/2019 (0921) PAGE 1 Signed ReportBASI METABOLIC [id number] 08:56 :00 Test Item Value Reference Range [...] 3.00 mg/dL 0.7-1.3 BUN/CREATININE RATIO (test 19.3 20 code=BUN/CREA) CALCIUM (test code=CA) 8.5 mg/dL 8.5-10.1 [id number] 08:56:00 Test Item Value Reference Range Comments MAGNESIUM (test code=MAG) 2.1 mg/dL 1.8-2.4 CBC W/AUTO [id number] 08:44:00 Test Item Value Reference Range Comments [...] RBC # (test code=NRBC#) 0.00 K/mm3 0.0-0.1 [id number] 08:27:00 Test Item Value Reference Range Comments GLYCOSYLATED HEMOGLOBIN (HA1C) (test code=GLYHGB) 9.7 % HbA1 4.8-6.0 ESTIMATED AVERAGE GLUCOSE (test code=EAG) 232 MG/DL [id number] 06:14:00 Test Item Value Reference Range Comments GLUBED (test code=GLUBED) 134 mg/dL 74-106 Performed by certified ride operator at [facility] [id number] 04:22:00 Test Item Value Reference Range Comments GLUBED (test code=GLUBED) 146 mg/dL 74-106 Performed by certified ride operator at [facility] [id number] 21:25:00 Test Item Value Reference Range Comments GLUBED (test code=GLUBED) 179 mg/dL 74-106 Performed by certified ride operator at [facility] UR MICROALBUMIN/CREAT [id number] 17:08:00 Test Item Value Reference Range Comments UR CREATININE RANDOM-NON REPRT 36.1 mg/dL Not Estab. (test code=CREATUT) UR MICROALBUMIN QUANT (test 1409.7 ug/mL Not Estab. Results confirmed code=MICALB) ondilution. UR MICROALB/CREAT RATIO (test 3905.0 0.0-30.0 INFCE Result Units: mg/g code=MICALB:CRE) creat Normal: 0.0 - 30.0 Albuminuria: 31.0 - 300.0 Clinical albuminuria: >300.0Performed At: [facility] [address] [place], [place] [id number] Preston Reynolds MD Ph:[phone] [id number] 16:47:00 Test Item Value Reference Range Comments GLUBED (test code=GLUBED) 173 mg/dL 74-106 Performed by certified ride operator at [facility] [id number] 10:07:00 Test Item Value Reference Range Comments GLUBED (test code=GLUBED) 151 mg/dL 74-106 Performed by certified ride operator at [facility] [id number] 07:12:00 Test Item Value Reference Range Comments TROPONIN-I (test code=TROPI) 2.350 ng/mL 0-0.045 COMMENTS TO PATIENT CARE ASSISTANT: COLLECT 3 HOURS AFTER PREVIOUS SAMPLE- XR CHEST 1 [id number] 06:25:00 FAX: Piter Collins [phone] [place]: B St: ADM FAX: Reji Hernandez IMBrigitte --- Name: [facility] : 1955 Age/S: 63/M [address] [facility] Unit # : [id number] Loc: V.[address] [place] [address] Phys: Piter Collins Acct: [id number] Dis Date: Status: ADM IN PHONE #: [phone] Exam Date: 06/15/2019 05 FAX #: [phone] Reason: updatedpulm view EXAMS: CPT CODE: [id number] XR CHEST 1 V 50251 CLINICAL HISTORY: Respiratory failure, CHF TECHNIQUE: AP chest x- ray COMPARISON: Previous day. IMPRESSION: Slightly worse bilateral airspace opacification and small pleural effusions. Cardiomegaly. AICD/biventricular pacer. LOCATION : LP at 0625 Reported and signed by: Eliz Ocampo D.O. CC: Piter Collins; Reji Hernandez MD Technologist: ALETA Bryan Trnscrd Date/Time/By: 06/15/2019 (624) : By: [email or web address] Orig Print D/T : S: 06/15/2019 (0654) PAGE 1 Signed ReportPROCALCITONIN (PCT)2019-06-15 06:18:00 Test [...] into account the patients history. COMPREHENSIVE METABOLIC [id number] 06:07:00 Test Item Value Reference Range Comments [...] code=ALKP) range due to change in reagent. [id number] 06:07:00 Test Item Value Reference Range Comments MAGNESIUM (test code=MAG) 2.2 mg/dL 1.8-2.4 [id number] 05:29:00 Test Item Value Reference Range Comments GLUBED (test code=GLUBED) 180 mg/dL 74-106 Performed by certified ride operator at [facility] CBC W/AUTO [id number] 05:09:00 Test Item Value Reference Range Comments [...] RBC # (test code=NRBC#) 0.00 K/mm3 0.0-0.1 [id number] 21:16:00 Test Item Value Reference Range Comments GLUBED (test code=GLUBED) 186 mg/dL 74-106 Performed by certified ride operator at [facility] [id number] 16:21:00 Test Item Value Reference Range Comments GLUBED (test code=GLUBED) 229 mg/dL 74-106 Performed by certified ride operator at [facility] UR SMEAR EOSINOPHIL [id number] 16:03:00 Test Item Value Reference Range Comments UR SMEAR EOSINOPHIL COUNT (test NONE SEEN per HPF NONE SEEN code=EOSCTU) UR NA,[id number] 16:03:00 Test Item Value Reference Range Comments UR NA,RANDOM (test code=NOEMÍ) 113 mmol/L 20-110 UR CHLORIDE [id number] 16:03:00 Test Item Value Reference Range Comments UR CHLORIDE RANDOM (test code=CLU) 118 mEq/L UR PROTEIN/CREATININE [id number] 16:03:00 Test Item Value Reference Range Comments UR PROTEIN RANDOM (test 271.2 mg/dL 0.0-11.9 Protein levels may be falsely code=PROTU) elevated in patients withelevated level of aminoglycoside antibiotics in CSF and inhighly concentrated urine specimens. If false elevation issuspected, contact lab for alternated testing technique. UR CREATININE RANDOM (test 34.0 mg/dL 30-125 code=CREATU) PROTEIN/CREATININE RATIO 7.98 RATIO 0.0-0.20 (test code=P/CRATIO) UR SMEAR EOSINOPHIL [id number] 15:08:00 Test Item Value Reference Range Comments UR SMEAR EOSINOPHIL COUNT (test code=EOSCTU) per HPF NONE SEEN UR NA,[id number] 15:08:00 Test Item Value Reference Range Comments UR NA,RANDOM (test code=NOEMÍ) 113 mmol/L 20-110 UR CHLORIDE [id number] 15:08:00 Test Item Value Reference Range Comments UR CHLORIDE RANDOM (test code=CLU) 118 mEq/L UR PROTEIN/CREATININE [id number] 15:08:00 Test Item Value Reference Range Comments UR PROTEIN RANDOM (test 271.2 mg/dL 0.0-11.9 Protein levels may be falsely code=PROTU) elevated in patients withelevated level of aminoglycoside antibiotics in CSF and inhighly concentrated urine specimens. If false elevation issuspected, contact lab for alternated testing technique. UR CREATININE RANDOM (test 34.0 mg/dL 30-125 code=CREATU) PROTEIN/CREATININE RATIO 7.98 RATIO 0.0-0.20 (test code=P/CRATIO) UR SMEAR EOSINOPHIL [id number] 14:58:00 Test Item Value Reference Range Comments UR SMEAR EOSINOPHIL COUNT (test code=EOSCTU) per HPF NONE SEEN UR NA,[id number] 14:58:00 Test Item Value Reference Range Comments UR NA,RANDOM (test code=NOEMÍ) 113 mmol/L 20-110 UR CHLORIDE [id number] 14:58:00 Test Item Value Reference Range Comments UR CHLORIDE RANDOM (test code=CLU) 118 mEq/L UR PROTEIN/CREATININE [id number] 14:58:00 Test Item Value Reference Range Comments UR PROTEIN RANDOM (test code=PROTU) mg/dL 0.0-11.9 UR CREATININE RANDOM (test code=CREATU) mg/dL 30-125 PROTEIN/CREATININE RATIO (test code=P/CRATIO) RATIO 0.0-0.20 [id number] 13:09:00 Test Item Value Reference Range Comments GLUBED (test code=GLUBED) 214 mg/dL 74-106 Performed by certified ride operator at [facility] URINALYSIS [id number] 11:40:00 Test Item Value Reference Range Comments [...] code=HYALU) 3-5 #/LPF 0-5 Urine Source? Clean [id number] 11:38:00 Test Item Value Reference Range Comments GLUBED (test code=GLUBED) 203 mg/dL 74-106 Performed by certified ride operator at [facility] URINALYSIS [id number] 11:35:00 Test Item Value Reference Range Comments [...] code=BACU) per HPF NONE Urine Source? Clean [id number] 07:40:00 Test Item Value Reference Range Comments TROPONIN-I (test code=TROPI) 1.380 ng/mL 0-0.045 SPECIMEN COMMENTS: 0200 LAB- XR CHEST 1 [id number] 07:30:00 FAX: Piter Collins [phone] [place]: B St: ADM FAX: Reji Hernandez IMD Name: [facility]TR[facility] Y[facility] : 1955 Age/S: 63/M [address] [facility] Unit #: [id number] Loc: V.S06 [place] [address] Phys: Piter Collins Acct: [id number] Dis Date: Status: ADM IN PHONE #: [phone] Exam Date: 06/14/2019648 FAX #: [phone] Reason: updatedpulm view. EXAMS: CPT CODE: [id number] XR CHEST 1 V 53908 CLINICAL HISTORY: Respiratory failure, CHF TECHNIQUE: AP chest x -ray COMPARISON: Previous day. IMPRESSION: Improved patchy bilateral airspace opacification or pulmonary congestion. Small bilateral pleural effusions. Cardiomegaly. AICD/ biventricular pacer. LOCATION: LP at 0730 Reported and signed by: Eliz Ocampo D.O. CC: Piter Clolins; Reji Hernandez MD Technologist: Chanell Anderson(Eric) Trnscrd Date/Time/By: 2018 (0730) : By: [email or web address] Orig Print D/T: S: 06/14/2019 (0733) PAGE 1 Signed ReportBASIC METABOLIC [id number] 03:27:00 Test Item Value Reference Range Comments [...] code=BUN/CREA) 10-20 CALCIUM (test code=CA) mg/dL 8.5-10.1 [id number] 03:27:00 Test Item Value Reference Range Comments MAGNESIUM (test code=MAG) mg/dL 1.8-2.4 BASIC METABOLIC [id number] 03:27:00 Test Item Value Reference Range Comments [...] 2.70 mg/dL 0.7-1.3 BUN/CREATININE RATIO (test 18.8 10-20 code=BUN/CREA) CALCIUM (test code=CA) 7.3 mg/dL 8.5-10.1 [id number] 03:27:00 Test Item Value Reference Range Comments MAGNESIUM (test code=MAG) 2.0 mg/dL 1.8-2.4 CBC W/O [id number] 03:06:00 Test Item Value Reference Range Comments [...] PLATELET VOLUME (test code=MPV) 8.8 fL 6.7-11.0 [id number] 00:03:00 Test Item Value Reference Range Comments TROPONIN-I (test 1.480 ng/mL 0-0.045 RESULT VERIFIED BY REPEAT code=TROPI) ANALYSIS COMMENTS TO PATIENT CARE ASSISTANT: COLLECT 3 HOURS AFTER PREVIOUS SAMPLE- US RETRO [id number] 18:28:00 Name: [facility] Y[facility] : 1955 Age/S: 63 / M [address] [facility] Unit #: [id number] Loc: [place] [address] Phys: Reji Hernandez MD Acct: [id number] Dis Date: Status : ADM IN PHONE #: [phone] Exam Date: 06/13/2019 1703 FAX #: [phone] Reason: ckd EXAMS: CPTCODE: [id number] US RETRO LTD 15436 REASON FOR EXAM: ckd EXAM ORDER DATE: [...] Left kidney is within normal limits. Location: [facility] Electronically Signed by Yoandy Calero MD on 2018 at 1828 Reported and signed by: Yoandy Calero MD PAGE 1 Signed Report (CONTINUED) Name: [facility]ERTRAND Y[facility] : 1955 Age/S: 63 / M [address] [facility] Unit #: [id number] Loc: [place] [address] Phys: Reji Hernandez MD Acct : [id number] Dis Date: Status: ADM IN PHONE #: [phone] Exam Date: 06/13/2019 1703 FAX #: [phone] Reason: ckd EXAMS: CPT CODE: [id number] [facility] [address] <Continued> CC: Krystina Kowalski MD; Reji Hernandez MD Technologist: Ladi Ruiz RDMS Trnscb Date/Time: 06/13/2019 (182) [email or web address] Orig Print D/T: S: 06/13/2019 (183) Probe : PAGE 2 Signed ReportPROTHROMBIN [id number] 14: 57:00 Test Item Value Reference Range [...] (2.5-3.5) IS PATIENT ON ANTICOAGULANTS? NTHROMBOPLASTIN TIME [id number] 14:57:00 Test Item Value Reference Range Comments THROMBOPLASTIN TIME PARTIAL (test code=PTT) 47.3 seconds 25.0-36.5 IS PATIENT ON ANTICOAGULANTS? [id number] 14:57:00 Test Item Value Reference Range Comments D-DIMER (test 92978.00 ng/mLFEU 0-500 RESULT VERIFIED BY REPEAT code=DDIMER) [...] - IS PATIENT ON ANTICOAGULANTS? NB-TYPE NATRIURETIC [id number] 14:38:00 Test Item Value Reference Range Comments B-TYPE NATRIURETIC PEPTIDE (test code=BNP) 1317.60 pgram/mL 0-100 BASIC METABOLIC [id number] 14:36:00 Test Item Value Reference Range Comments [...] 3.20 mg/dL 0.7-1.3 BUN/CREATININE RATIO (test 16.2 06-11 code=BUN/CREA) CALCIUM (test code=CA) 8.6 mg/dL 8.5-10.1 HEPATIC FUNCTION [id number] 14:36:00 Test Item Value Reference Range Comments [...] KINASE (CK) (test code=CK) 105 IUnit/L 26-208 [id number] 14:36:00 Test Item Value Reference Range Comments LIPASE (test code=LIP) 241 U/L 73.0-393.0 [id number] 14:36:00 Test Item Value Reference Range Comments MAGNESIUM (test code=MAG) 2.3 mg/dL 1.8-2.4 [id number] 14:36:00 Test Item Value Reference Range Comments TROPONIN-I (test 1.890 ng/mL 0-0.045 Results called to [id number] by code=TROPI) V.LAB.KA 06/13/19 1433Critical results verified and read back by Nurse? Y LACTIC [id number] 14:27:00 Test Item Value Reference Range Comments LACTIC ACID (test code=LACT) 0.9 mmol/L 0.4-1.9 BASIC METABOLIC [id number] 14:16:00 Test Item Value Reference Range Comments [...] CALCIUM (test code=CA) mg/dL 8.5-10.1 HEPATIC FUNCTION [id number] 14:16:00 Test Item Value Reference Range Comments [...] CREATINE KINASE (CK) (test code=CK) IUnit/L 26-208 [id number] 14:16:00 Test Item Value Reference Range Comments LIPASE (test code=LIP) U/L 73.0-393.0 [id number] 14:16:00 Test Item Value Reference Range Comments MAGNESIUM (test code=MAG) mg/dL 1.8-2.4 [id number] 14:16:00 Test Item Value Reference Range Comments TROPONIN-I (test code=TROPI) ng/mL 0-0.045 CBC W/AUTO [id number] 14:10:00 Test Item Value Reference Range Comments [...] 0.03 K/mm3 0.0-0.1 - XR CHEST 1 [id number] 14:01:00 FAX: Krystina Banda [phone] [place]: St: PRE Name: [facility] Y[facility] : 1955 Age/S: 63/M [address] [facility] Unit#: [id number] Loc: [place] [address] Phys: Krystina Kowalski MD Acct: [id number] Dis Date: Status: PRE ER PHONE #: [phone] Exam Date: 06/13/2019 1350 FAX #: [phone] Reason: SHORTNESS OF BREATH EXAMS: CPT CODE: [id number] XR CHEST 1 V 14207 HISTORY: Shortness of breath. COMPARISON: None available. [...] [email or web address] Orig Print D/T : S: 06/13/2019 (1253) PAGE 1 Signed ReportARTERIAL BLOOD [id number] 13:59:00 Test Item Value Reference Range Comments ARTERIAL BLOOD GAS PH (test 7.21 7.35-7.45 code=PHA) ARTERIAL BLOOD GAS PCO2 (test 62.9 mm Hg 35-45 code=PCO2A) ARTERIAL BLOOD GAS PO2 (test 117.7 mmHg 80-100 code=PO2A) BICARBONATE TOTAL HCO3 (test 24.8 mmol/L 23.0-27.0 code=HCO3) BASE EXCESS (test code=RANGEL) -4.0 mmol/L -3.0-5.0 Results called to and read back by 13:57 - 06/13/2019; by SVITLANA CLAUDIO O2 SATURATION (test 97.4 % 90.0-98.0 code=SATA) [...]
[2019-09-08 20:12] LABS: Basophils % 1.1 % (0-1.3); Hematocrit 36.9 % (39.6-49.0); MPV 7.3 fL (7.6-11.3); RBC Red Blood Cell Count 4.25 M/uL (4.33-5.43)
[2019-09-08 20:18] LABS: Albumin 2.8 g/dL (3.4-5.0); Bilirubin Direct 0.1 mg/dL (0-0.2); Bilirubin Total 0.5 mg/dL (0.2-1.0); Potassium 4.2 mmol/L (3.5-5.1)
[2019-09-09] MEDS ORDERED: PIPER/TAZO/NS 3.375gm 3.375 GM/100 ML BAG ONE (00:23)
--- NOTE | 2019-09-09 00:53 | ER ---
Nurse's Notes [facility] Name: Jarod Kraft Age: 64 yrs Sex: Male : 1955 Arrival Date: 09/08/2019 Time: 17:05 Bed 28 Private MD: Diagnosis: Acute Diverticulitis;Abdominal Hernia Presentation: 09/08 17:09 Presenting complaint: Patient states: "Last night I started with pain right here (pt aj1 points to RLQ of abdomen) this morning when I try to get it I feel like there's a little ball inside" Patient reports that the pain comes and goes. Denies N/V/D. Transition of care: patient was not received from another setting of care. Onset of symptoms was 2019. Risk Assessment: Do you want to hurt yourself or someone else? Patient reports no desire to harm self or others. Initial Sepsis Screen: Does the patient meet any 2 criteria? No. Patient's initial sepsis screen is negative. Does the patient have a suspected source of infection? Yes: Acute abdominal pain. Care prior to arrival: None. 17:09 Method Of Arrival: Ambulatory aj1 17:09 Acuity: ASAF 3 aj1 Triage Assessment: 17:11 General: Appears in no apparent distress. comfortable, Behavior is calm, cooperative, aj1 appropriate for age. Pain: Complains of pain in right lower quadrant. Neuro: Level of Consciousness is awake, alert, obeys commands. Cardiovascular: Patient's skin is warm and dry. Respiratory: Airway is patent Respiratory effort is even, unlabored, Respiratory pattern is regular, symmetrical. GI: Reports lower abdominal pain. Historical: - Allergies: 17:11 NKDA; aj1 - Home Meds: 17:11 atorvastatin 20 mg Oral tab 1 tab once daily [Active]; clonidine HCl 0.2 mg Oral tab 1 aj1 tab 3 times per day [Active]; Coreg 3.125 mg Oral tab 1 tab every 12 hours [Active]; glipizide 10 mg Oral tab 1 tab 2 times per day [Active]; isosorbide dinitrate 10 mg Oral tab 1 tab 3 times per day [Active]; Lantus 20 units Sub-Q daily [Active]; levetiracetam 500 mg Oral tab 1 tab 2 times per day [Active]; Lyrica 50 mg Oral 3 times per day [Active]; metformin 1,000 mg Oral tab 1 tab 2 times per day [Active]; Micardis 80 mg Oral tab 1 tab once daily [Active]; Norvasc 10 mg Oral tab 1 tab once daily [Active]; Xarelto 20 mg Oral tab 1 tab once daily [Active]; - PMHx: 17:11 CHF; Diabetes - IDDM; Hypertension; Irregular heart rate; aj1 - Immunization history:: Flu vaccine is up to date. - Social history:: Smoking status: Patient/guardian denies using tobacco. - Ebola Screening: : Patient denies travel to an Ebola-affected area in the 21 days before illness onset. Screenin:05 Abuse screen: Denies threats or abuse. Nutritional screening: No deficits noted. jv1 Tuberculosis screening: No symptoms or risk factors identified. Fall Risk None identified. No fall in past 12 months (0 pts). Assessment: 19:59 General: Appears in no apparent distress. comfortable, obese, Behavior is calm, jv1 cooperative, appropriate for age. Pain: Complains of pain in abdomen and right lower quadrant Pain does not radiate. Pain currently is 0 out of 10 on a pain scale. Quality of pain is described as aching. Neuro: Level of Consciousness is awake, alert, obeys commands, Oriented to person, place, time, situation, Appropriate for age [employer] Operator are equal bilaterally Moves all extremities. Cardiovascular: Denies chest pain. Respiratory: Airway is patent Respiratory effort is even, unlabored, Respiratory pattern is regular, symmetrical, Breath sounds are clear bilaterally. GI: Bowel sounds present X 4 quads. Abd is soft X 4 quads Abdomen is tender to palpation. : No signs and/or symptoms were reported regarding the genitourinary system. EENT: No signs and/or symptoms were reported regarding the EENT system. Derm: Skin is intact, is healthy with good turgor. Musculoskeletal: Circulation, motion, and sensation intact. Capillary refill < 3 seconds. 21:00 Reassessment: Patient appears in no apparent distress at this time. No changes from jv1 previously documented assessment. Patient and/or family updated on plan of care and expected duration. Pain level reassessed. Patient is alert, oriented x 3, equal unlabored respirations, skin warm/dry/pink. Patient denies pain at this time. 22:00 Reassessment: Patient appears in no apparent distress at this time. No changes from jv1 previously documented assessment. Patient and/or family updated on plan of care and expected duration. Pain level reassessed. Patient is alert, oriented x 3, equal unlabored respirations, skin warm/dry/pink. Patient denies pain at this time. 23:00 Reassessment: Patient appears in no apparent distress at this time. No changes from jv1 previously documented assessment. Patient and/or family updated on plan of care and expected duration. Pain level reassessed. Patient is alert, oriented x 3, equal unlabored respirations, skin warm/dry/pink. Patient denies pain at this time. 09/09 00:00 Reassessment: Patient appears in no apparent distress at this time. No changes from jv1 previously documented assessment. Patient and/or family updated on plan of care and expected duration. Pain level reassessed. Patient is alert, oriented x 3, equal unlabored respirations, skin warm/dry/pink. Patient denies pain at this time. 00:06 Reassessment: provider in patient's room. jv1 01:00 Reassessment: Patient appears in no apparent distress at this time. No changes from jv1 previously documented assessment. Patient and/or family updated on plan of care and expected duration. Pain level reassessed. Patient is alert, oriented x 3, equal unlabored respirations, skin warm/dry/pink. Patient denies pain at this time. 02:00 Reassessment: Patient appears in no apparent distress at this time. No changes from jv1 previously documented assessment. Patient and/or family updated on plan of care and expected duration. Pain level reassessed. Patient is alert, oriented x 3, equal unlabored respirations, skin warm/dry/pink. Patient denies pain at this time. 03:00 Reassessment: Patient appears in no apparent distress at this time. No changes from jv1 previously documented assessment. Patient and/or family updated on plan of care and expected duration. Pain level reassessed. Patient is alert, oriented x 3, equal unlabored respirations, skin warm/dry/pink. Patient denies pain at this time. Vital Signs: 09/08 17:11 BP 110 / 75; Pulse 68; Resp 18; Temp 97.4; Pulse Ox 97% on R/A; Weight 118.39 kg (R); aj1 Height 5 ft. 6 in. (167.64 cm) (R); Pain 5/10; 19:13 BP 101 / 80; Pulse 65; Resp 18; Temp 98.5; Pulse Ox 96% on R/A; Pain 0/10; jv1 21:00 BP 110 / 80; Pulse 60; Resp 18; Temp 98; Pulse Ox 99% on R/A; Pain 0/10; jv1 22:00 BP 105 / 70; Pulse 60; Resp 18; Temp 98.2; Pulse Ox 98% on R/A; Pain 0/10; jv1 23:00 BP 105 / 70; Pulse 61; Resp 18; Temp 98; Pulse Ox 95% ; Pain 0/10; jv1 09/09 00:00 BP 109 / 74; Pulse 62; Resp 18; Pulse Ox 96% on R/A; Pain 0/10; jv1 01:00 BP 110 / 70; Pulse 62; Resp 18; Temp 98; Pulse Ox 96% on R/A; Pain 0/10; jv1 02:00 BP 115 / 71; Pulse 60; Resp 18; Temp 98; Pulse Ox 98% ; Pain 0/10; jv1 03:00 BP 117 / 71; Pulse 60; Resp 18; Temp 98; Pulse Ox 98% ; Pain 0/10; jv1 09/08 17:11 Body Mass Index 42.13 (118.39 kg, 167.64 cm) [facility] ED Course: 09/08 17:05 Patient arrived in ED. mr 17:10 Triage completed. [facility] 17:11 Arm band placed on Patient placed in waiting room, Patient notified of wait time. [facility] 19:03 Palmer Sweeney PA is PHCP. [facility] 19:03 Akira Pulido MD is Attending Physician. [facility] 20:05 Patient has correct armband on for positive identification. Bed in low position. Call jv1 light in reach. Side rails up X 1. Adult w/ patient. 22:26 Abdomen In Process Unspecified. EDMS 22:32 Thorax Wo Con In Process Unspecified. EDMS 09/09 00:51 Bunny Serrano MD is Hospitalizing Provider. [facility] 01:00 Eli Vivas, RN is Primary Nurse. 4 03:26 No provider procedures requiring assistance completed. Patient admitted, IV remains in jv1 place. Administered Medications: 00:10 Drug: Zosyn 3.375 grams Route: IVPB; Infused Over: 60 mins; Site: left antecubital; jv1 01:30 Follow up: Response: No adverse reaction; IV Status: Completed infusion jv1 01:30 Drug: Flagyl 500 mg Volume: 100 ml; Route: IVPB; Rate: 200 ml/hr; Infused Over: 30 jv1 mins; Site: left antecubital; 03:31 Follow up: Response: No adverse reaction; IV Status: Completed infusion jv1 02:30 Drug: Ciprofloxacin 400 mg Volume: 200 ml; Route: IVPB; Infused Over: 60 mins; Site: jv1 left antecubital; 03:34 Follow up: Response: No adverse reaction; IV Status: Completed infusion jv1 Outcome: 00:52 Decision to Hospitalize by Provider. [facility] 02:55 Admitted to ER Hold. Please see [facility] for further documentation. jv1 03:26 Condition: stable jv1 17:59 Patient left the ED. iw Signatures: Dispatcher [employer] EDMS Tana Bowen, RN RN aj1 Palmer Sweeney PA PA jmm Rivera, Mary mr Tanya Conway, RN SHARRON iw Luz Marina Willis RN RN jv1 Eli Vivas RN RN ls4
--- NOTE | 2019-09-09 00:53 | EDPHYS ---
Physician Documentation [facility] Name: Jarod Kraft Age: 64 yrs Sex: Male : 1955 Arrival Date: 09/08/2019 Time: 17:05 Bed 28 Private MD: ED Physician Akira Pulido HPI: 09/08 19:41 This 64 yrs old Male presents to ER via Ambulatory with complaints of jmm Abdominal Pain. 19:41 The patient presents with abdominal pain. Onset: The symptoms/episode began/occurred jmm gradually, 1 day(s) ago. The symptoms do not radiate. Associated signs and symptoms:. The symptoms are described as achy, sharp. Modifying factors: The symptoms are alleviated by remaining still, the symptoms are aggravated by movement. This is a 64 year old male with a history of CHF, DM, HTN that presents to the ED with complaints of lower abdominal pain beginning yesterday. Worsened with change in position. Denies vomiting, fever, diarrhea. Denies testicular pain. . Historical: - Allergies: 17:11 NKDA; aj1 - Home Meds: 17:11 atorvastatin 20 mg Oral tab 1 tab once daily [Active]; clonidine HCl 0.2 mg Oral tab 1 aj1 tab 3 times per day [Active]; Coreg 3.125 mg Oral tab 1 tab every 12 hours [Active]; glipizide 10 mg Oral tab 1 tab 2 times per day [Active]; isosorbide dinitrate 10 mg Oral tab 1 tab 3 times per day [Active]; Lantus 20 units Sub-Q daily [Active]; levetiracetam 500 mg Oral tab 1 tab 2 times per day [Active]; Lyrica 50 mg Oral 3 times per day [Active]; metformin 1,000 mg Oral tab 1 tab 2 times per day [Active]; Micardis 80 mg Oral tab 1 tab once daily [Active]; Norvasc 10 mg Oral tab 1 tab once daily [Active]; Xarelto 20 mg Oral tab 1 tab once daily [Active]; - PMHx: 17:11 CHF; Diabetes - IDDM; Hypertension; Irregular heart rate; aj1 - Immunization history:: Flu vaccine is up to date. - Social history:: Smoking status: Patient/guardian denies using tobacco. - Ebola Screening: : Patient denies travel to an Ebola-affected area in the 21 days before illness onset. ROS: 19:41 Constitutional: Negative for fever, chills, and weight loss, Cardiovascular: Negative jmm for chest pain, palpitations, and edema, Respiratory: Negative for shortness of breath, cough, wheezing, and pleuritic chest pain. 19:41 MS/Extremity: Negative for injury and deformity, Neuro: Negative for headache, weakness, numbness, tingling, and seizure. 19:41 Abdomen/GI: Positive for abdominal pain. 19:41 All other systems are negative. Exam: 19:41 Constitutional: This is a well developed, well nourished patient who is awake, alert, jmm and in no acute distress. Head/Face: atraumatic. Eyes: EOMI, no conjunctival erythema appreciated ENT: Moist Mucus Membranes Neck: Trachea midline, Supple Chest/axilla: Normal chest wall appearance and motion. Cardiovascular: Regular rate and rhythm. No edema appreciated Respiratory: Normal respirations, no respiratory distress appreciated 19:41 Abdomen/GI: Inspection: abdomen appears normal, Bowel sounds: normal, Palpation: soft, mild abdominal tenderness, in the right lower quadrant and left lower quadrant. 19:41 Back: ROM is normal. 19:41 Musculoskeletal/extremity: ROM: intact in all extremities. 19:41 Skin: Appearance: Color: normal in color. 19:41 Neuro: Orientation: is normal, Mentation: is normal, Memory: is normal. 19:41 Psych: Behavior/mood is pleasant, cooperative. Vital Signs: 17:11 BP 110 / 75; Pulse 68; Resp 18; Temp 97.4; Pulse Ox 97% on R/A; Weight 118.39 kg (R); aj1 Height 5 ft. 6 in. (167.64 cm) (R); Pain 5/10; 19:13 BP 101 / 80; Pulse 65; Resp 18; Temp 98.5; Pulse Ox 96% on R/A; Pain 0/10; jv1 21:00 BP 110 / 80; Pulse 60; Resp 18; Temp 98; Pulse Ox 99% on R/A; Pain 0/10; jv1 22:00 BP 105 / 70; Pulse 60; Resp 18; Temp 98.2; Pulse Ox 98% on R/A; Pain 0/10; jv1 23:00 BP 105 / 70; Pulse 61; Resp 18; Temp 98; Pulse Ox 95% ; Pain 0/10; jv1 09/09 00:00 BP 109 / 74; Pulse 62; Resp 18; Pulse Ox 96% on R/A; Pain 0/10; jv1 01:00 BP 110 / 70; Pulse 62; Resp 18; Temp 98; Pulse Ox 96% on R/A; Pain 0/10; jv1 02:00 BP 115 / 71; Pulse 60; Resp 18; Temp 98; Pulse Ox 98% ; Pain 0/10; jv1 03:00 BP 117 / 71; Pulse 60; Resp 18; Temp 98; Pulse Ox 98% ; Pain 0/10; jv1 09/08 17:11 Body Mass Index 42.13 (118.39 kg, 167.64 cm) aj1 MDM: 09/08 19:03 Patient medically screened. [facility] 09/09 00:50 Data reviewed: vital signs, nurses notes. Counseling: I had a detailed discussion with josias the patient and/or guardian regarding: the historical points, exam findings, and any diagnostic results supporting the discharge/admit diagnosis, lab results, radiology results, the need for further work-up and treatment in the hospital. ED course: I discussed the patient with Dr. Jarvis whom will consult with the patient on admission. I discussed the patient with Dr. Serrano whom accepted the patient for admission. . 09/08 19:27 Order name: Basic Metabolic Panel; Complete Time: 20:26 [facility] 09/08 19:27 Order name: CBC with Diff; Complete Time: 20:14 [facility] 09/08 19:27 Order name: Creatinine for Radiology; Complete Time: 20:18 [facility] 09/08 19:27 Order name: Hepatic Function; Complete Time: 20:26 [facility] 09/08 19:27 Order name: Lipase; Complete Time: 20:26 [facility] 09/08 23:57 Order name: Lactate; Complete Time: 00:52 [facility] 09/09 01:35 Order name: Basic Metabolic Panel [facility] 09/09 01:35 Order name: Basic Metabolic Panel [facility] 09/09 01:35 Order name: Comprehensive Metabolic Panel [facility] 09/09 01:35 Order name: Comprehensive Metabolic Panel; Complete Time: 15:38 [facility] 09/09 01:35 Order name: Comprehensive Metabolic Panel [facility] 09/09 01:35 Order name: Lipase EDMS 09/09 01:35 Order name: Lipase; Complete Time: 15:38 EDMS 09/08 20:32 Order name: Abdomen EDMS 09/09 01:35 Order name: Lipase EDMS 09/09 01:35 Order name: Magnesium EDMS 09/09 01:35 Order name: Magnesium; Complete Time: 15:38 EDMS 09/09 01:35 Order name: Magnesium EDMS 09/09 01:35 Order name: Phosphorus EDMS 09/09 01:35 Order name: Phosphorus; Complete Time: 15:38 EDMS 09/09 01:35 Order name: Phosphorus EDMS 09/09 01:35 Order name: Protime (+INR) EDMS 09/09 01:35 Order name: Protime (+INR); Complete Time: 15:38 EDMS 09/09 01:35 Order name: Protime (+INR) EDMS 09/09 01:35 Order name: PTT, Activated Partial Thromb EDMS 09/09 01:35 Order name: PTT, Activated Partial Thromb; Complete Time: 15:38 [facility] 09/09 01:36 Order name: CBC with Automated Diff; Complete Time: 15:38 [facility] 09/08 19:27 Order name: IV Saline Lock; Complete Time: 21:56 [facility] 09/08 19:27 Order name: Labs collected and sent; Complete Time: 21:57 [facility] 09/08 22:18 Order name: Thorax Wo Con EDGA 09/09 01:36 Order name: CONS Physician Consult [facility] 09/09 01:36 Order name: NPO [facility] 09/09 13:43 Order name: Diet Ada 1800 Osvaldo; Complete Time: 13:44 aj1 Administered Medications: 00:10 Drug: Zosyn 3.375 grams Route: IVPB; Infused Over: 60 mins; Site: left antecubital; jv1 01:30 Follow up: Response: No adverse reaction; IV Status: Completed infusion jv1 01:30 Drug: Flagyl 500 mg Volume: 100 ml; Route: IVPB; Rate: 200 ml/hr; Infused Over: 30 jv1 mins; Site: left antecubital; 03:31 Follow up: Response: No adverse reaction; IV Status: Completed infusion jv1 02:30 Drug: Ciprofloxacin 400 mg Volume: 200 ml; Route: IVPB; Infused Over: 60 mins; Site: jv1 left antecubital; 03:34 Follow up: Response: No adverse reaction; IV Status: Completed infusion jv1 Disposition: 09/10 10:03 Co-signature as Attending Physician, Akira Pulido MD I agree with the assessment and [facility] plan of care. Disposition: 09/09/19 00:52 Hospitalization ordered by Bunny Serrano for Observation. Preliminary diagnosis are Acute Diverticulitis, Abdominal Hernia. - Bed requested for [facility] ER HOLD. - Status is Observation. iw - Condition is Stable. - Problem is new. - Symptoms are unchanged. UTI on Admission? No Signatures: Dispatcher [employer] EDMS Tana Bowen, RN RN aj1 Chanell Marcial, RN RN Akira Jacobo MD MD cha Mickail, Joel, PA PA [facility] Tanya Conway, RN RN iw Shala Wolfe, RN RN tl1 Luz Marina Willis RN RN jv1 Corrections: (The following items were deleted from the chart) 09/08 20:29 19:28 Abdomen Pelvis W Con+CT.RAD.BRZ ordered. EDGA EDGA 20:31 20:19 Abdomen Pelvis W Con+CT.RAD.BRZ ordered. EDGA EDGA 09/09 01:37 01:35 Basic Metabolic Panel ordered. [facility] EDGA 02:14 00:52 Hospitalization Ordered by Bunny Serrano MD for Observation. Preliminary tl1 diagnosis is Acute Diverticulitis; Abdominal Hernia. Bed requested for Telemetry/MedSurg (observation). Status is Observation. Condition is Stable. Problem is new. Symptoms are unchanged. UTI on Admission? No. katiam 13:48 02:14 09/09/2019 00:52 Hospitalization Ordered by Bunny Serrano MD for Observation. dw Preliminary diagnosis is Acute Diverticulitis; Abdominal Hernia. Bed requested for [facility] ER HOLD. Status is Observation. Condition is Stable. Problem is new. Symptoms are unchanged. UTI on Admission? No. tl1 13:54 13:48 09/09/2019 00:52 Hospitalization Ordered by Bunny Serrano MD for Observation. iw Preliminary diagnosis is Acute Diverticulitis; Abdominal Hernia. Bed requested for Telemetry/MedSurg (observation). Status is Observation. Condition is Stable. Problem is new. Symptoms are unchanged. UTI on Admission? No. dw 13:54 13:54 09/09/2019 00:52 Hospitalization Ordered by Bunny Serrano MD for Observation. iw Preliminary diagnosis is Acute Diverticulitis; Abdominal Hernia. Bed requested for Telemetry/MedSurg (observation). Status is Observation. Condition is Stable. Problem is new. Symptoms are unchanged. UTI on Admission? No. iw 17:59 13:54 09/09/2019 00:52 Hospitalization Ordered by Bunny Serrano MD for Observation. iw Preliminary diagnosis is Acute Diverticulitis; Abdominal Hernia. Bed requested for [facility] ER HOLD. Status is Observation. Condition is Stable. Problem is new. Symptoms are unchanged. UTI on Admission? No. iw
[2019-09-09] MEDS ORDERED: CLINDAMYCIN 600MG/D5W 600 MG/50 ML BAG IV ONE (01:15)
[2019-09-09] MEDS ORDERED: METRONIDAZOLE 500mg IVPB 500 MG/100 ML BAG IV ONE ×3 (01:15→12:38)
[2019-09-09] MEDS ORDERED: ONDANSETRON 4 MG/2 ML VIAL IV PRN (01:29)
[2019-09-09] MEDS ORDERED: HYDROCODONE/APAP 7.5/325 MG TAB PO PRN (01:29)
[2019-09-09] MEDS ORDERED: ACETAMINOPHEN 500 MG TAB PO PRN (01:29)
[2019-09-09] MEDS ORDERED: HYDROMORPHONE HCL 1 MG/ML INJ IV PRN (01:29)
[2019-09-09] MEDS ORDERED: NA CHLORIDE 0.9% 1,000 ML IV SCH (02:00)
[2019-09-09] MEDS ORDERED: CIPROFLOXACIN 400mg IV 400 MG/200 ML BAG IV ONE (02:00)
[2019-09-09] MEDS ORDERED: NA CHLORIDE 0.9% 1,000 ML ONE (02:04)
[2019-09-09] MEDS: METRONIDAZOLE 500mg IVPB 500 MG/100 ML BAG IV SCH ×3 (02:15→12:00)
[2019-09-09] MEDS ORDERED: Levofloxacin500mg IV 500 MG/100 ML BAG IV ONE ×2 (03:00→04:18)
[2019-09-09 04:34] VITALS: BMI 42.1
[2019-09-09 04:52] LABS: Absolute Lymphocytes (CBC) 2.8 K/uL (0.7-4.9); Basophils % 1.1 % (0-1.3); Hematocrit 34.3 % (39.6-49.0); Lymphocytes % 25.2 % (15.3-44.8); MPV 7.1 fL (7.6-11.3); RBC Red Blood Cell Count 4.03 M/uL (4.33-5.43)
[2019-09-09 04:58] LABS: Protime INR 1.08
[2019-09-09 05:10] LABS: Albumin 2.6 g/dL (3.4-5.0); Bilirubin Total 0.6 mg/dL (0.2-1.0); Phosphorus 4.5 mg/dL (2.5-4.9); Potassium 3.8 mmol/L (3.5-5.1); Protein, Total 6.4 g/dL (6.4-8.2)
--- NOTE | 2019-09-09 06:56 | P.HP ---
Certification for Inpatient Patient admitted to: Observation With expected LOS: <2 Midnights Patient will require the following post-hospital care: None Practitioner: I am a practitioner with admitting privileges, knowledge of patient current condition, hospital course, and medical plan of care. Services: Services provided to patient in accordance with Admission requirements found in Title 42 Section 412.3 of the Code of Federal Regulations Patient History Date of Service: 09/09/19 Reason for admission: Incarcerated abdominal hernia History of Present Illness: Patient is a 64-year-old gentleman with a history of cardiac disease status post pacemaker who comes into the hospital with abdominal pain. Patient was having severe abdominal pain and he was nauseated. It appears he may have a incarcerated hernia. This may been reduced in the emergency room by the physician paralegal assistant. Patient's CT scan suggested a incarcerated hernia. The was also some concern about some necrosis. However clinically patient is doing well with no pain. He has had no nausea or vomiting in the emergency room. He does have extensive cardiac disease and is seen by a cleaning technician in [place]. With his clinical symptoms not being suggestive of an incarcerated hernia will go ahead and Consult general surgery. We will await their opinion prior to starting a diet. If they are agreeable then we will start patient on a diet and advance as tolerates it. Possible discharge home in the next 24 hr. Allergies erythromycin base Allergy (Intermediate, Verified 09/09/19 04:39) GI upset/burning Home Medications: Amlodipine [Norvasc*] 10 mg PO DAILY 09/11/16 Glipizide [Glipizide ER] 10 mg PO BID 09/11/16 Insulin Detemir [Levemir*] 30 units SQ BID 09/11/16 carvediloL [Coreg*] 25 mg PO BID 09/11/16 levETIRAcetam [Levetiracetam] 500 mg PO BID 09/11/16 Aspirin 1 tab PO DAILY 06/30/19 Atorvastatin Calcium 1 tab PO DAILY 06/30/19 Clonidine HCl [Catapres*] 1 tab PO TID 06/30/19 Furosemide 40 mg PO DAILY 07/02/19 Furosemide [Lasix] 20 mg PO BEDTIME 09/09/19 Isosorbide Mononitrate [Isosorbide Mononitrate ER] 30 mg PO DAILY 09/09/19 - Past Medical/Surgical History Has patient received pneumonia vaccine in the past: No Diabetic: Yes -: Hypertension -: Diabetes mellitus type 2, insulin-dependent -: CAD with pacemaker -: Hyperlipidemia -: Diabetic neuropathy -: Diabetic retinopathy -: Pacemaker placement -: Cholecystectomy Psychosocial/ Personal History: Patient is - Family History Father Medical History: Heart disease Mother Medical History: Diabetes - Social History Smoking Status: Former smoker Alcohol use: No CD- Drugs: No Caffeine use: No Place of Residence: Home Review of Systems 10-point ROS is otherwise unremarkable Physical Examination - Vital Signs Temperature: 98.5 F Blood Pressure: 122/70 Pulse: 61 Respirations: 18 Pulse Ox (%): 94 - Physical Exam General: Alert, In no apparent distress, Oriented x3 HEENT: Atraumatic, PERRLA, Mucous membr. moist/pink, EOMI, Sclerae nonicteric Neck: Supple, 2+ carotid pulse no bruit, No LAD, Without JVD or thyroid abnormality Respiratory: Clear to auscultation bilaterally, Normal air movement Cardiovascular: Regular rate/rhythm, Normal S1 S2, No murmurs Gastrointestinal: Normal bowel sounds, Soft and benign, Non-distended, No tenderness Musculoskeletal: No clubbing, No swelling, No tenderness Integumentary: No rashes Neurological: Normal gait, Normal speech, Normal strength at 5/5 x4 extr, Normal tone, Sensation intact, Cranial nerves 3-12 intact, Normal affect Lymphatics: No axilla or inguinal lymphadenopathy - Studies Laboratory Data (last 24 hrs) 09/08/19 19:47: Creatinine 2.72 H 09/08/19 19:47: WBC 13.8 H, Hgb 12.1 L, Hct 36.9 L, Plt Count 247 09/08/19 19:47: Sodium 142, Potassium 4.2, BUN 41 H, Creatinine 2.79 H, Glucose 211 H, Total Bilirubin 0.5, AST 18, ALT 36, Alkaline Phosphatase 143 H, Lipase 173 Assessment & Plan - Problems (Diagnosis) (1) Abdominal pain Current Visit: Yes Status: Acute (2) Nausea Current Visit: Yes Status: Acute (3) Incarcerated hernia of abdominal cavity Current Visit: Yes Status: Acute (4) Acute worsening of stage 3 chronic kidney disease Current Visit: No Status: Acute (5) CKD (chronic kidney disease) stage 3, GFR 30-59 ml/min Onset Date: 09/14/16 Current Visit: No Status: Chronic (6) Diabetes type 2, controlled Onset Date: 09/14/16 Current Visit: No Status: Chronic Qualifiers: (7) Essential hypertension Onset Date: 09/14/16 Current Visit: No Status: Chronic (8) History of permanent cardiac pacemaker placement Current Visit: No Status: Chronic - Plan Plan: 1. NPO 2. Surgery evaluation 3. Resume cardiac medications 4. Pain control 5. IV hydration 6. Repeat labs 7. GI and DVT prophylaxis - Advance Directives Does patient have a Living Will: No Does patient have a Durable POA for Healthcare: No
[2019-09-09] MEDS ORDERED: KCL 20 MEQ/100 mL IVPB 20 MEQ/100 ML BAG IV SCH (08:00)
[2019-09-09] MEDS ORDERED: KCL 20 MEQ/100 mL IVPB 20 MEQ/100 ML BAG IV ONE (08:44)
[2019-09-09] MEDS ORDERED: ENOXAPARIN 30 MG/0.3 ML SQ ONE (08:44)
[2019-09-09] MEDS ORDERED: ENOXAPARIN 30 MG/0.3 ML SQ SCH (09:00)
[2019-09-09] MEDS ORDERED: Levofloxacin500mg IV 500 MG/100 ML BAG IV SCH (09:00)
[2019-09-09] MEDS ORDERED: PNEUMOCOCCAL VACCINE 0.5 ML IMVAC ONE (12:00)
--- NOTE | 2019-09-09 13:41 | P.CNS ---
Date of Consult: 09/09/19 PC: This 64-year-old male presents emergency room with severe abdominal pain for diagnosis and treatment. HPC: Patient had been experiencing severe periumbilical pain for 24 hr. Describes it as severe hard cramping pain. PMH: CAD, pacemaker PSHx: Pacemaker placement SOC: Allergic to erythromycin base SYS REVIEW: No cough, wheeze, shortness of breath. States he has had this hernia since the age of 11. Has not given him pain on prior episodes. Denies any urinary complaints. O/E awake alert vital signs are stable comfortable asking for food HEENT: Within normal limits Chest: Chest movement equal bilateral ABD: Abdomen is soft, nontender. Palpable mass at the emboli kiss consistent with some omentum. No surrounding skin erythema. LOCO: Intact DATA: CT scan shows umbilical hernia with most likely umbilical ligament as contents. IMPRESSION: 1 I was contacted it was explained to me that they have been able to reduce this hernia in the emergency room. He has been pain free from at this time. He was kept for observation and pain control. At the current moment he has no evidence of any incarceration or strangulation of his bowel. He will be given a diet. If tolerated he will discharge home. PLAN: Patient will be discharge. He will see his labor trainer ( ) for pacemaker check and evaluation of his cardiac status. He will get back to mean am we will discuss the future repair of this hernia as an elective procedure. His been advise she have any questions or problems or have recurrence of his symptoms to return to the emergency room or contact me. He understands and wants to proceed.
--- NOTE | 2019-09-09 14:35 | P.DS ---
Admission Date: 09/09/19 Discharge Date: 09/09/19 Disposition: ROUTINE DISCHARGE Discharge Condition: GOOD Reason for Admission: Incarcerated abdominal hernia Brief History of Present Illness: HPI "Ms Elaine is 64-year-old gentleman with a history of cardiac disease status post pacemaker who comes into the hospital with abdominal pain. Patient was having severe abdominal pain and he was nauseated. It appears he may have a incarcerated hernia. This may been reduced in the emergency room by the physician computer lab assistant. Patient's CT scan suggested a incarcerated hernia. The was also some concern about some necrosis. However clinically patient is doing well with no pain. He has had no nausea or vomiting in the emergency room. He does have extensive cardiac disease and is seen by a inventory and pricing associate in [place]. With his clinical symptoms not being suggestive of an incarcerated hernia will go ahead and Consult general surgery. We will await their opinion prior to starting a diet. If they are agreeable then we will start patient on a diet and advance as tolerates it. Possible discharge home in the next 24 hr" Patient was evaluated by [facility]. Since hernia was reducible and with complete symptom resolution, he has been cleared to discharge. He will follow up with [facility] outpatient for elective hernia repair. Vital Signs/Physical Exam: Temp Pulse Resp BP Pulse Ox 98.2 F 64 18 119/66 94 09/09/19 12:00 09/09/19 12:00 09/09/19 12:00 09/09/19 12:00 09/09/19 12:00 General: Alert, In no apparent distress HEENT: Atraumatic, PERRLA, EOMI Neck: Supple, JVD not distended Respiratory: Clear to auscultation bilaterally, Normal air movement Cardiovascular: Regular rate/rhythm, Normal S1 S2 Gastrointestinal: Normal bowel sounds, No tenderness Musculoskeletal: No tenderness Integumentary: No rashes Neurological: Normal speech, Normal tone, Normal affect Lymphatics: No axilla or inguinal lymphadenopathy Laboratory Data at Discharge: WBC 11.2 K/uL (4.3-10.9) H D 09/09/19 04:34 Hgb 11.5 g/dL (13.6-17.9) L 09/09/19 04:34 Hct 34.3 % (39.6-49.0) L 09/09/19 04:34 Plt Count 206 K/uL (152-406) 09/09/19 04:34 PT 12.7 SECONDS (9.5-12.5) H 09/09/19 04:34 INR 1.08 09/09/19 04:34 APTT 38.7 SECONDS (24.3-36.9) H 09/09/19 04:34 Sodium 141 mmol/L (136-145) 09/09/19 04:34 Potassium 3.8 mmol/L (3.5-5.1) 09/09/19 04:34 BUN 41 mg/dL (7-18) H 09/09/19 04:34 Creatinine 2.76 mg/dL (0.55-1.3) H 09/09/19 04:34 Glucose 139 mg/dL (74-106) H 09/09/19 04:34 Phosphorus 4.5 mg/dL (2.5-4.9) 09/09/19 04:34 Magnesium 2.0 mg/dL (1.8-2.4) 09/09/19 04:34 Total Bilirubin 0.6 mg/dL (0.2-1.0) 09/09/19 04:34 AST 20 U/L (15-37) 09/09/19 04:34 ALT 38 U/L (12-78) 09/09/19 04:34 Alkaline Phosphatase 138 U/L (45-117) H 09/09/19 04:34 Lipase 134 U/L (73-393) 09/09/19 04:34 Home Medications: RX: Amlodipine [Norvasc*] 10 mg PO DAILY 09/11/16 RX: Glipizide [Glipizide ER] 10 mg PO BID 09/11/16 RX: Insulin Detemir [Levemir*] 30 units SQ BID 09/11/16 RX: carvediloL [Coreg*] 25 mg PO BID 09/11/16 RX: levETIRAcetam [Levetiracetam] 500 mg PO BID 09/11/16 RX: Aspirin 1 tab PO DAILY 06/30/19 RX: Atorvastatin Calcium 1 tab PO DAILY 06/30/19 RX: Clonidine HCl [Catapres*] 1 tab PO TID 06/30/19 RX: Furosemide 40 mg PO DAILY 07/02/19 RX: Furosemide [Lasix*] 20 mg PO BEDTIME 09/09/19 RX: Isosorbide Mononitrate [Isosorbide Mononitrate ER] 30 mg PO DAILY 09/09/19 Diet: AHA Activity: Ad amita Followup: Pa Viveros DO, DO [Primary Care Provider] - 1 Week Maynor Jarvis MD [ACTIVE - CAN ADMIT] - 1 Week
[2019-09-09 18:43] VITALS: BP 122/75; TEMP 98.5
[2019-09-09 19:13] VITALS: O2SAT 98
[2019-09-10] MEDS ORDERED: Levofloxacin 250mg IV 250 MG/50 ML BAG IV SCH (06:00)
--- NOTE | 2019-09-11 16:08 | RAD REPORT ---
EXAM DESCRIPTION: CT - Abdomen Pelvis Wo Contrast - 09/08/2019 10:25 pm CLINICAL HISTORY: 64-year-old male with pain. COMPARISON: CT chest 06/30/2018. TECHNIQUE: CT of the chest, abdomen and pelvis was performed following intravenous administration of contrast. Oral contrast was administered. Multiplanar reformatted images were provided. This exam wa s performed according to our departmental dose optimization program which includes use of automated e xposure control, adjustment of the mA and/or kV according to patient size and/or use of iterative rec onstruction technique. FINDINGS: Chest: Evaluation through the lungs reveal no focal opacity, or pneumothorax. Lobulated LE FT lower pleural effusion, not layering, may be loculated. Adjacent compressive atelectasis. Heart size is within normal limits. No pericardial effusion. Incompletely visualized LEFT chest wall pacemaker device with leads terminating at the level of the ventricular apex and LEFT ventricle. Abdomen and pelvis: The liver, gallbladder, pancreas, spleen, bilateral kidneys and bilateral adrenal glands are within normal limits. The vessels are patent and normal in caliber. No abdominopelvic lymph nodes are noted to be pathologically enlarged by CT measurement criteria. The and small bowel is within normal limits without abnormal bowel wall thickness or bowel dilation. Diverticula are identified throughout the sigmoid colon. A focal area of distal sigmoid colon wall th ickening, diverticula and adjacent stranding is identified suggestive of acute diverticulitis. No org anizing fluid collection or free intra-abdominal air, however microperforation cannot be excluded. Wa ll thickness measures 9 mm (series 203, image 51). No free air. No free abdominopelvic fluid collections. The appendix is within normal limits. The osseous structures a degenerative change, particularly of the lower lumbar spine facets. Moderate to severe diffuse disk bulge of L4-5. Small supraumbilical fat-containing hernia with narrow opening measuring 1 cm. The fat-containing por tion of the hernia measures 2.8 x 4.2 cm, (series 201, image 54). Larger paraumbilical hernia is identified with narrow opening measuring 11 mm containing mesenteric f at. The fat-containing portion of the hernia measures 4.6 x 3.7 cm. Additionally, the hernia contains stranding and fluid. There is mild diffuse surrounding stranding about the subcutaneous fat soft tis sues marginating the hernia. Findings raise the concern for incarcerated hernia with fat necrosis. No discrete organizing fluid collection identified to suggest abscess. Thickened appearance of the bladder wall may be secondary to incomplete distention, however can be se en in the setting of infectious or inflammatory process. Please correlate with laboratory values. IMPRESSION: 1. Diverticulitis of the distal sigmoid colon as detailed above. 2. Umbilical hernia with surrounding inflammatory change and internal fluid content, concerning for i ncarcerated hernia with fat necrosis. 3. Possibly loculated non layering LEFT side lower lobe pleural effusion. 4. Thickened appearance of the bladder wall may be secondary to incomplete distention, however can be seen in the setting of infectious or inflammatory process. Please correlate with laboratory values. Electronically signed by: Lauren Herrera MD 09/08/2019 11:08 PM DIRECTOR OF INSTRUMENTAL MUSIC Due to temporary technical issues with the PACS/Fluency reporting system, reports are being signed by the in house radiologist as a courtesy to ensure prompt reporting. The interpreting radiologist is f ully responsible for the content of the report.
== END 2019-09-09 17:30 | disposition home or self-care (01) ==
LOC: ER 17:01 → ERHOLD 09-09 01:37
PROVIDERS: ADMIT Hospitalist; ATTEND Hospitalist
DX: K46.0 Unspecified abdominal hernia with obstruction, without gangrene (principal); I25.10 Atherosclerotic heart disease of native coronary artery without angina pectoris; E78.5 Hyperlipidemia, unspecified; I12.9 Hypertensive chronic kidney disease with stage 1 through stage 4 chronic kidney disease, or unspecified chronic kidney disease; E11.22 Type 2 diabetes mellitus with diabetic chronic kidney disease; N18.3 Chronic kidney disease, stage 3 (moderate); Z95.0 Presence of cardiac pacemaker
CPT/HCPCS: 96365; 96367; 96368; 85025 ×2; 80048; 36415; 83735; 84100; 85610; 80076; 83605; 85730; 83690 ×2; 80053; 71250; 74176; 99285; 96366; J1650; J2543; J7030; J0744; G0378 ×2

== ENCOUNTER 2020-01-25 16:06 | Inpatient (IN) | payer OTHER ==
--- OUTSIDE RECORDS SUMMARY | 2020-01-25 16:11 | XMS REPORT | Continuity of Care Document ---
:1955 Author Organization [facility] t Address [address] [place] [address] Care Team Providers Name Role Phone Unavailable Unavailable Unavailable Payers Payer Name Policy Type Policy Number Effective Date Expiration Date S ource Problems This patient has no known problems. Allergies, Adverse Reactions, Alerts Allergy Allergy Status Severity Reaction(s) Onset Inactive Treating Comm ents Source Name Type Date Date Clinician azithrom DA Active [place] 2018- [facility] 0[facility] Clear 00:00: Quintana 00 [facility] azithrom DA Active [place] [facility] 3-27 [facility] 00:00: e 00 [facility] Medications This patient has no known medications. Procedures This patient has no known procedures. Results Test Description Test Time Test Comments Results Result Comments Source GLUBED 2019-06-19 13:30:00 Test Item Value Reference Range Interpretation Comme nts GLUBED (test code = GLUBED) 179 mg/dL 74-106 H Performed by certified extraction operator at [facility] [id number] 06:14:00 Test Item Value Reference Range Interpretation Comments GLUBED (test code = 139 mg/dL 74-106 H Performe d by certified GLUBED) extraction operator at [facility] [id number] 04:42:00 Test Item Value Reference Range Interpretation Comments GLUBED (test code = 166 mg/dL 74-106 H Performe d by certified GLUBED) extraction operator at [facility] [id number] 21:05:00 Test Item Value Reference Range Interpretation Comments GLUBED (test code = 311 mg/dL 74-106 H Performe d by certified GLUBED) extraction operator at [facility] [id number] 17:31:00 Test Item Value Reference Range Interpretation Comments GLUBED (test code = 200 mg/dL 74-106 H Performe d by certified GLUBED) extraction operator at [facility] [id number] 12:34:00 Test Item Value Reference Range Interpretation Comments GLUBED (test code = 225 mg/dL 74-106 H Performe d by certified GLUBED) extraction operator at [facility] BASIC METABOLIC [id number] 07:17:00 Test Item Value Reference Range Interpretation Comments SODIUM (test code = 145 mmol/L 136-145 N NA) POTASSIUM (test code 3.8 mmol/L 3.5-5.1 N = K) CHLORIDE (test code = 109.0 mmol/L 98-107 H CL) CARBON DIOXIDE (test 28.0 mmol/L 21-32 N code = CO2) ANION GAP (test code 11.8 10-20 N = GAP) GLUCOSE (test code = 161 mg/dL 74-106 H GLU) BLOOD UREA NITROGEN 46 mg/dL 7-18 H (test code = BUN) GLOMERULAR FILTRATION 23 mL/min >=60 Estima jose juan GFR by RATE (test code = using Praveen fied MDRD GFR) formula.Chronic kidney disease is defined as [facility] kidney damageor GFR <60 mL/min/1.73 m2 for >3 months. CREATININE (test code 2.80 mg/dL 0.7-1.3 H = CREAT) BUN/CREATININE RATIO 16.4 10-20 N (test code = BUN/CREA) CALCIUM (test code = 8.8 mg/dL 8.5-10.1 N CA) [id number] 05:08:00 Test Item Value Reference Range Interpretation Comments GLUBED (test code = 146 mg/dL 74-106 H Performe d by certified GLUBED) extraction operator at [facility] BASIC METABOLIC [id number] 03:11:00 Test Item Value Reference Range Interpretation Comments SODIUM (test code = 146 mmol/L 136-145 H NA) POTASSIUM (test code 3.8 mmol/L 3.5-5.1 N = K) CHLORIDE (test code = 110.0 mmol/L 98-107 H CL) CARBON DIOXIDE (test 29.0 mmol/L 21-32 N code = CO2) ANION GAP (test code 10.8 10-20 N = GAP) GLUCOSE (test code = 161 mg/dL 74-106 H GLU) BLOOD UREA NITROGEN 53 mg/dL 7-18 H (test code = BUN) GLOMERULAR FILTRATION 23 mL/min >=60 Estima jose juan GFR by RATE (test code = using Praveen fied MDRD GFR) formula.Chronic kidney disease is defined as ei er kidney damageor GFR <60 mL/min/1.73 m2 for >3 months. CREATININE (test code 2.80 mg/dL 0.7-1.3 H = CREAT) BUN/CREATININE RATIO 18.9 10-20 N (test code = BUN/CREA) CALCIUM (test code = 8.7 mg/dL 8.5-10.1 N CA) [id number] 03:11:00 Test Item Value Reference Range Interpretation Comments MAGNESIUM (test code = MAG) 2.0 mg/dL 1.8-2.4 N CBC W/O [id number] 03:02:00 Test Item Value Reference Range Interpretation Comments WHITE BLOOD CELL (test code = 8.5 K/mm3 4.5-12.5 N WBC) RED BLOOD CELL (test code = 3.73 mill/mm3 4.0-5.8 L RBC) HEMOGLOBIN (test code = HGB) 10.7 gram/dL 13.0-17.5 L HEMATOCRIT (test code = HCT) 34.6 % 42.0-52.0 L MEAN CELL VOLUME (test code = 92.8 fL 80-98 N MCV) MEAN CELL HGB (test code = MCH) 28.7 picogram 27.0-33.0 N MEAN CELL HGB CONCETRATION 30.9 gram/dL 33.0-36.0 L (test code = MCHC) RED CELL DISTRIBUTION WIDTH 14.6 % 11.6-16.2 N (test code = RDW) PLATELET COUNT (test code = 214 K/mm3 150-450 N PLT) MEAN PLATELET VOLUME (test code 8.8 fL 6.7-11.0 N = MPV) [id number] 21:06:00 Test Item Value Reference Range Interpretation Comments GLUBED (test code = 283 mg/dL 74-106 H Performe d by certified GLUBED) extraction operator at [facility] [id number] 18:12:00 Test Item Value Reference Range Interpretation Comments GLUBED (test code = 207 mg/dL 74-106 H Performe d by certified GLUBED) extraction operator at [facility] [id number] 12:02:00 Test Item Value Reference Range Interpretation Comments GLUBED (test code = 220 mg/dL 74-106 H Performe d by certified GLUBED) extraction operator at [facility] [id number] 06:47:00 Test Item Value Reference Range Interpretation Comments GLUBED (test code 142 mg/dL 74-106 H Performed by certified = GLUBED) [facility]~ [id number] 06:29:00 Test Item Value Reference Range Interpretation Comments GLUBED (test code 212 mg/dL 74-106 H Performed by certified = GLUBED) [facility] BASIC METABOLIC [id number] 02:36:00 Test Item Value Reference Range Interpretation Comments SODIUM (test code = 147 mmol/L 136-145 H NA) POTASSIUM (test code 4.0 mmol/L 3.5-5.1 N = K) CHLORIDE (test code = 112.0 mmol/L 98-107 H CL) CARBON DIOXIDE (test 28.0 mmol/L 21-32 N code = CO2) ANION GAP (test code 11.0 10-20 N = GAP) GLUCOSE (test code = 172 mg/dL 74-106 H GLU) BLOOD UREA NITROGEN 61 mg/dL 7-18 H (test code = BUN) GLOMERULAR FILTRATION 21 mL/min >=60 Estima jose juan GFR by RATE (test code = using Praveen fied MDRD GFR) formula.Chronic kidney disease is defined as [facility] kidney damageor GFR <60 mL/min/1.73 m2 for >3 months. CREATININE (test code 3.00 mg/dL 0.7-1.3 H = CREAT) BUN/CREATININE RATIO 20.3 10-20 H (test code = BUN/CREA) CALCIUM (test code = 8.7 mg/dL 8.5-10.1 N CA) [id number] 02:36:00 Test Item Value Reference Range Interpretation Comments MAGNESIUM (test code = MAG) 2.0 mg/dL 1.8-2.4 N BASIC METABOLIC [id number] 02:21:00 Test Item Value Reference Range Interpretation Comments SODIUM (test code = NA) 147 mmol/L 136-145 H POTASSIUM (test code = K) 4.0 mmol/L 3.5-5.1 N CHLORIDE (test code = CL) 112.0 mmol/L 98-107 H CARBON DIOXIDE (test code = CO2) mmol/L 21-32 ANION GAP (test code = GAP) 10-20 GLUCOSE (test code = GLU) mg/dL 74-106 BLOOD UREA NITROGEN (test code = mg/dL 7-18 BUN) GLOMERULAR FILTRATION RATE (test mL/min >=60 code = GFR) CREATININE (test code = CREAT) mg/dL 0.7-1.3 BUN/CREATININE RATIO (test code 1020 = BUN/CREA) CALCIUM (test code = CA) mg/dL 8.5-10.1 [id number] 02:21:00 Test Item Value Reference Range Interpretation Comments MAGNESIUM (test code = MAG) mg/dL 1.8-2.4 CBC W/O [id number] 01:44:00 Test Item Value Reference Range Interpretation Comments WHITE BLOOD CELL (test 10.7 K/mm3 4.5-12.5 N code = WBC) RED BLOOD CELL (test 3.93 mill/mm3 4.0-5.8 L code = RBC) HEMOGLOBIN (test code 11.6 gram/dL 13.0-17.5 L = HGB) HEMATOCRIT (test code 35.2 % 42.0-52.0 L = HCT) MEAN CELL VOLUME (test 89.6 fL 80-98 RESUL T VERIFIED BY code = MCV) REPEAT ANALYSIS MEAN CELL HGB (test 29.5 picogram 27.0-33.0 N code = MCH) MEAN CELL HGB 33.0 gram/dL 33.0-36.0 N CONCETRATION (test code = MCHC) RED CELL DISTRIBUTION 14.6 % 11.6-16.2 N WIDTH (test code = RDW) PLATELET COUNT (test 241 K/mm3 150-450 N code = PLT) MEAN PLATELET VOLUME 8.7 fL 6.7-11.0 N (test code = MPV) [id number] 17:37:00 Test Item Value Reference Range Interpretation Comments GLUBED (test code = 274 mg/dL 74-106 H Performe d by certified GLUBED) extraction operator at [facility] [id number] 12:37:00 Test Item Value Reference Range Interpretation Comments GLUBED (test code = 187 mg/dL 74-106 H Performe d by certified GLUBED) extraction operator at [facility] [id number] 11:42:00 Test Item Value Reference Range Interpretation Comments GLUBED (test code = 188 mg/dL 74-106 H Performe d by certified GLUBED) extraction operator at [facility] - XR CHEST 1 [id number] 09:18:00 FAX: Reji Hernandez MD [place]: B St: [facility] FAX: Asmita David NP [phone] Name: BERTRAND YU [facility] : 1955 Age/S: 63/M [address] [facility] Unit #: [id number] Loc: V.2058 [place] [address] Phys: Asmita David NP Acct: V [id number] Dis Date: Status: ADM IN PHONE #: [phone] Exam Date: 06/16/2019 0858 FAX #: [phone] Reason: CHF EXAMS: CPT CODE: [id number] XR CHEST 1 V 87712 HISTORY: CHF. COMPARISON: Previous day. Left ICD is unchanged. Mild congestion. Smallbasilar effusions. Dependent changes. Small basilar effusions. Dependent changes. Cardiomegaly. IMPRESSION: Mild congestion is unchanged. at 0918 Reported and signed by: Anjum Helton M.D. CC: Reji Hernandez MD; Asmita David NP Technologist: ALETA [facility]HAMMAD [facility] Date/Time/By: 06/16/2019 (0981) :By: [email or web address] Orig Print D/T: S: 06/16/2019 (1078) PAGE 1 Signed ReportBASIC METABOLIC [id number] 08:56:00 Test Item Value Reference Range Interpretation Comments SODIUM (test code = 147 mmol/L 136-145 H NA) POTASSIUM (test code 4.3 mmol/L 3.5-5.1 N = K) CHLORIDE (test code = 112.0 mmol/L 98-107 H CL) CARBON DIOXIDE (test 26.0 mmol/L 21-32 N code = CO2) ANION GAP (test code 13.3 10-20 N = GAP) GLUCOSE (test code = 127 mg/dL 74-106 H GLU) BLOOD UREA NITROGEN 59 mg/dL 7-18 H (test code = BUN) GLOMERULAR FILTRATION 21 mL/min >=60 Estima jose juan GFR by RATE (test code = using Praveen fied MDRD GFR) formula.Chronic kidney disease is defined as eith er kidney damageor GFR <60 mL/min/1.73 m2 for >3 months. CREATININE (test code 3.00 mg/dL 0.7-1.3 H = CREAT) BUN/CREATININE RATIO 19.3 10-20 N (test code = BUN/CREA) CALCIUM (test code = 8.5 mg/dL 8.5-10.1 N CA) [id number] 08:56:00 Test Item Value Reference Range Interpretation Comments MAGNESIUM (test code = MAG) 2.1 mg/dL 1.8-2.4 N CBC W/AUTO [id number] 08:44:00 Test Item Value Reference Range Interpretation Comments WHITE BLOOD CELL (test code = 12.4 K/mm3 4.5-12.5 N WBC) RED BLOOD CELL (test code = 3.90 mill/mm3 4.0-5.8 L RBC) HEMOGLOBIN (test code = HGB) 11.4 gram/dL 13.0-17.5 L HEMATOCRIT (test code = HCT) 36.9 % 42.0-52.0 L MEAN CELL VOLUME (test code = 94.6 fL 80-98 N MCV) MEAN CELL HGB (test code = MCH) 29.2 picogram 27.0-33.0 N MEAN CELL HGB CONCETRATION 30.9 gram/dL 33.0-36.0 L (test code = MCHC) RED CELL DISTRIBUTION WIDTH 14.8 % 11.6-16.2 N (test code = RDW) RED CELL DISTRIBUTION WIDTH SD 49.6 fL 37.0-51.0 N (test code = RDW-SD) PLATELET COUNT (test code = 244 K/mm3 150-450 N PLT) MEAN PLATELET VOLUME (test code 8.8 fL 6.7-11.0 N = MPV) NEUTROPHIL % (test code = NT%) 68.6 % 39.0-69.0 N IMMATURE GRANULOCYTE % (test 0.6 % 0.0-5.0 N code = IG%) LYMPHOCYTE % (test code = LY%) 18.9 % 25.0-55.0 L MONOCYTE % (test code = MO%) 6.5 % 0.0-10.0 N EOSINOPHIL % (test code = EO%) 4.9 % 0.0-5.0 N BASOPHIL % (test code = BA%) 0.5 % 0.0-1.0 N NUCLEATED RBC % (test code = 0.0 % 0-0 N NRBC%) NEUTROPHIL # (test code = NT#) 8.49 K/mm3 1.8-7.7 H IMMATURE GRANULOCYTE # (test 0.07 x10 3/uL 0-0.03 H code = IG#) LYMPHOCYTE # (test code = LY#) 2.34 K/mm3 1.0-5.0 N MONOCYTE # (test code = MO#) 0.81 K/mm3 0-0.8 H EOSINOPHIL # (test code = EO#) 0.61 K/mm3 0.0-0.5 H BASOPHIL # (test code = BA#) 0.06 K/mm3 0.0-0.2 N NUCLEATED RBC # (test code = 0.00 K/mm3 0.0-0.1 N NRBC#) [id number] 08:27:00 Test Item Value Reference Range Interpretation Comments GLYCOSYLATED HEMOGLOBIN (HA1C) 9.7 % HbA1 4.8-6.0 H (test code = GLYHGB) ESTIMATED AVERAGE GLUCOSE (test 232 MG/DL code = EAG) [id number] 06:14:00 Test Item Value Reference Range Interpretation Comments GLUBED (test code = 134 mg/dL 74-106 H Performe d by certified GLUBED) extraction operator at [facility] [id number] 04:22:00 Test Item Value Reference Range Interpretation Comments GLUBED (test code = 146 mg/dL 74-106 H Performe d by certified GLUBED) extraction operator at [facility] [id number] 21:25:00 Test Item Value Reference Range Interpretation Comments GLUBED (test code = 179 mg/dL 74-106 H Performe d by certified GLUBED) extraction operator at [facility] UR MICROALBUMIN/CREAT [id number] 17:08:00 Test Item Value Reference Range Interpretation Comments UR CREATININE 36.1 mg/dL Not Estab. RANDOM-NON REPRT (test code = CREATUT) UR MICROALBUMIN QUANT 1409.7 ug/mL Not Estab. Result s confirmed (test code = MICALB) ondilut ion. UR MICROALB/CREAT 3905.0 0.0-30.0 H INFCE Resu lt Units: RATIO (test code = mg/g crea t MICALB:CRE) Norm al: 0 .0 - 30.0 Albuminur ia: 31.0 - 300.0 Clinical albuminuria: >300.0Performed At: [facility] [id number] [place], [place] [id number] Preston Reynolds MD Ph:[phone] [id number] 16:47:00 Test Item Value Reference Range Interpretation Comments GLUBED (test code = 173 mg/dL 74-106 H Performe d by certified GLUBED) extraction operator at [facility] [id number] 10:07:00 Test Item Value Reference Range Interpretation Comments GLUBED (test code = 151 mg/dL 74-106 H Performe d by certified GLUBED) extraction operator at [facility] [id number] 07:12:00 Test Item Value Reference Range Interpretation Comments TROPONIN-I (test code = TROPI) 2.350 ng/mL 0-0.045 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 IMPRESSION: Slightly worse bilateral airspace opacification and small pleural effusions. Cardiomegaly. AICD/biventricular pacer. LOCATION: LP at 0625 Reported and signed by: Eliz Ocampo D.O. CC: Piter Collins; Reji Hernandez MD Technologist: ALETA Bryan Trnscrd Date/Time/By: 06/15/2019 (624) : By: [email or web address] Orig Print D/T: S: 06/15/2019 (06) PAGE 1 Signed ReportPROCALCITONIN (PCT)2019-06-15 06:18:00 Test Item Value Reference Range Interpretation Comments PROCALCITONIN (PCT) 0.12 ng/ml Concentr ation (test code = PROCAL) Interpr etation (ng/mL) ------- ------- <0.51 Sepsis is not likely. Local ba cterial infection is po ssible. (LOW RISK for progre ssion to Sepsis) 0.51 - 2.00 Sepsis is possible, but o ther conditions are known to elevate PCT as well. (M ODERATE RISK for progre ssion to Sepsis) > 2. 00 Sepsis is l ikely, unless other ca uses are known. (HIGH RISK for progression to Severe Sepsis or Septic Shock ) 10.00 High likelihood of S evere Sepsis or Septi c or higher Shoc k. *Inc reased PCT levels may not always be relat ed to systemic bacter ial infection.*Low PCT levels do not automatically e xclude the presence of bacterial infection.*All results should be inter preted taking into acc ount the patients h istory. COMPREHENSIVE METABOLIC [id number] 06:07:00 Test Item Value Reference Range Interpretation Comments SODIUM (test code = 145 mmol/L 136-145 N NA) POTASSIUM (test code = 4.4 mmol/L 3.5-5.1 N K) CHLORIDE (test code = 112.0 mmol/L 98-107 H CL) CARBON DIOXIDE (test 24.0 mmol/L 21-32 N code = CO2) ANION GAP (test code = 13.4 10-20 N GAP) GLUCOSE (test code = 194 mg/dL 74-106 H GLU) BLOOD UREA NITROGEN 64 mg/dL 7-18 H (test code = BUN) GLOMERULAR FILTRATION 19 mL/min >=60 Estima jose juan GFR by RATE (test code = GFR) using Modified MDRD formula.Chronic kidney disease is defined as eith er kidney damageor GFR <60 mL/min/1.73 m2 for >3 months. CREATININE (test code 3.30 mg/dL 0.7-1.3 H = CREAT) BUN/CREATININE RATIO 19.2 10-20 N (test code = BUN/CREA) TOTAL PROTEIN (test 6.6 gram/dL 6.4-8.2 N code = PROT) ALBUMIN (test code = 2.3 g/dL 3.4-5.0 L ALB) GLOBULIN (test code = 4.3 gram/dL 2.7-4.2 H GLOB) ALBUMIN/GLOBULIN RATIO 0.5 0.75-1.50 L (test code = A/G) CALCIUM (test code = 8.7 mg/dL 8.5-10.1 N CA) BILIRUBIN TOTAL (test 0.40 mg/dL 0.0-1.0 N code = BILT) SGOT/AST (test code = 11 IUnit/L 15-37 L AST) SGPT/ALT (test code = 30 IUnit/L 12-78 N ALT) ALKALINE PHOSPHATASE 151 IUnit/L 45-117 H Note change in TOTAL (test code = reference range due ALKP) to change in reagent. [id number] 06:07:00 Test Item Value Reference Range Interpretation Comments MAGNESIUM (test code = MAG) 2.2 mg/dL 1.8-2.4 N [id number] 05:29:00 Test Item Value Reference Range Interpretation Comments GLUBED (test code = 180 mg/dL 74-106 H Performe d by certified GLUBED) extraction operator at [facility] CBC W/AUTO [id number] 05:09:00 Test Item Value Reference Range Interpretation Comments WHITE BLOOD CELL (test code = 15.4 K/mm3 4.5-12.5 H WBC) RED BLOOD CELL (test code = 3.84 mill/mm3 4.0-5.8 L RBC) HEMOGLOBIN (test code = HGB) 11.2 gram/dL 13.0-17.5 L HEMATOCRIT (test code = HCT) 36.0 % 42.0-52.0 L MEAN CELL VOLUME (test code = 93.8 fL 80-98 N MCV) MEAN CELL HGB (test code = MCH) 29.2 picogram 27.0-33.0 N MEAN CELL HGB CONCETRATION 31.1 gram/dL 33.0-36.0 L (test code = MCHC) RED CELL DISTRIBUTION WIDTH 14.9 % 11.6-16.2 N (test code = RDW) RED CELL DISTRIBUTION WIDTH SD 48.7 fL 37.0-51.0 N (test code = RDW-SD) PLATELET COUNT (test code = 257 K/mm3 150-450 N PLT) MEAN PLATELET VOLUME (test code 8.6 fL 6.7-11.0 N = MPV) NEUTROPHIL % (test code = NT%) 79.8 % 39.0-69.0 H IMMATURE GRANULOCYTE % (test 0.8 % 0.0-5.0 N code = IG%) LYMPHOCYTE % (test code = LY%) 12.9 % 25.0-55.0 L MONOCYTE % (test code = MO%) 5.2 % 0.0-10.0 N EOSINOPHIL % (test code = EO%) 0.9 % 0.0-5.0 N BASOPHIL % (test code = BA%) 0.4 % 0.0-1.0 N NUCLEATED RBC % (test code = 0.0 % 0-0 N NRBC%) NEUTROPHIL # (test code = NT#) 12.29 K/mm3 1.8-7.7 H IMMATURE GRANULOCYTE # (test 0.12 x10 3/uL 0-0.03 H code = IG#) LYMPHOCYTE # (test code = LY#) 1.98 K/mm3 1.0-5.0 N MONOCYTE # (test code = MO#) 0.80 K/mm3 0-0.8 N EOSINOPHIL # (test code = EO#) 0.14 K/mm3 0.0-0.5 N BASOPHIL # (test code = BA#) 0.06 K/mm3 0.0-0.2 N NUCLEATED RBC # (test code = 0.00 K/mm3 0.0-0.1 N NRBC#) [id number] 21:16:00 Test Item Value Reference Range Interpretation Comments GLUBED (test code = 186 mg/dL 74-106 H Performe d by certified GLUBED) extraction operator at [facility] [id number] 16:21:00 Test Item Value Reference Range Interpretation Comments GLUBED (test code = 229 mg/dL 74-106 H Performe d by certified GLUBED) extraction operator at [facility] UR SMEAR EOSINOPHIL [id number] 16:03:00 Test Item Value Reference Range Interpretation Comments UR SMEAR EOSINOPHIL COUNT NONE SEEN per HPF NONE SEEN (test code = EOSCTU) UR NA,[id number] 16:03:00 Test Item Value Reference Range Interpretation Comments UR NA,RANDOM (test code = NOEMÍ) 113 mmol/L 20-110 H UR CHLORIDE [id number] 16:03:00 Test Item Value Reference Range Interpretation Comments UR CHLORIDE RANDOM (test code = 118 mEq/L CLU) UR PROTEIN/CREATININE [id number] 16:03:00 Test Item Value Reference Range Interpretation Comments UR PROTEIN RANDOM 271.2 mg/dL 0.0-11.9 H Protein le vels may be (test code = PROTU) falsely elevated in patients withel evated level of aminog lycoside antibiotics in CSF and inhighly concen trated urine specimens . If false elevation issuspected, co ntact lab for alterna jose juan testing techniq ue. UR CREATININE 34.0 mg/dL 30-125 N RANDOM (test code = CREATU) PROTEIN/CREATININE 7.98 RATIO 0.0-0.20 H RATIO (test code = P/CRATIO) UR SMEAR EOSINOPHIL [id number] 15:08:00 Test Item Value Reference Range Interpretation Comments UR SMEAR EOSINOPHIL COUNT (test code per HPF NONE SEEN = EOSCTU) UR NA,[id number] 15:08:00 Test Item Value Reference Range Interpretation Comments UR NA,RANDOM (test code = NOEMÍ) 113 mmol/L 20-110 H UR CHLORIDE [id number] 15:08:00 Test Item Value Reference Range Interpretation Comments UR CHLORIDE RANDOM (test code = 118 mEq/L CLU) UR PROTEIN/CREATININE [id number] 15:08:00 Test Item Value Reference Range Interpretation Comments UR PROTEIN RANDOM 271.2 mg/dL 0.0-11.9 H Protein le vels may be (test code = PROTU) falsely elevated in patients withel evated level of aminog lycoside antibiotics in CSF and inhighly concen trated urine specimens . If false elevation issuspected, co ntact lab for alterna jose juan testing techniq ue. UR CREATININE 34.0 mg/dL 30-125 N RANDOM (test code = CREATU) PROTEIN/CREATININE 7.98 RATIO 0.0-0.20 H RATIO (test code = P/CRATIO) UR SMEAR EOSINOPHIL [id number] 14:58:00 Test Item Value Reference Range Interpretation Comments UR SMEAR EOSINOPHIL COUNT (test code per HPF NONE SEEN = EOSCTU) UR NA,[id number] 14:58:00 Test Item Value Reference Range Interpretation Comments UR NA,RANDOM (test code = NOEMÍ) 113 mmol/L 20-110 H UR CHLORIDE [id number] 14:58:00 Test Item Value Reference Range Interpretation Comments UR CHLORIDE RANDOM (test code = 118 mEq/L CLU) UR PROTEIN/CREATININE [id number] 14:58:00 Test Item Value Reference Range Interpretation Comments UR PROTEIN RANDOM (test code = PROTU) mg/dL 0.0-11.9 UR CREATININE RANDOM (test code = mg/dL 30-125 CREATU) PROTEIN/CREATININE RATIO (test code = RATIO 0.0-0.20 P/CRATIO) [id number] 13:09:00 Test Item Value Reference Range Interpretation Comments GLUBED (test code = 214 mg/dL 74-106 H Performe d by certified GLUBED) extraction operator at [facility] URINALYSIS [id number] 11:40:00 Test Item Value Reference Range Interpretation Comments UA COLOR (test code = COLORLESS YELLOW A COLU) UA APPEARANCE (test code CLEAR CLEAR = APPU) UA GLUCOSE DIPSTICK (test 50 (Trace) mg/dL NEGATIVE A code = DGLUU) UA BILIRUBIN DIPSTICK NEGATIVE mg/dL NEGATIVE (test code = BILU) UA KETONE DIPSTICK (test NEGATIVE mg/dL NEGATIVE code = KETU) UA SPECIFIC GRAVITY (test 1.009 1.001-1.035 code = SGU) UA BLOOD DIPSTICK (test 0.03 mg/dL (Trace) NEGATIVE A code = HENNY) mg/dL UA PH DIPSTICK (test code 5.5 5.0-8.0 = MAGALY) UA PROTEIN DIPSTICK (test 200 (2+) mg/dL NEGATIVE A code = PROU) UA UROBILINIOGEN DIPSTICK Normal mg/dL NEGATIVE (test code = URO) UA NITRITE DIPSTICK (test NEGATIVE NEGATIVE code = KENDAL) UA LEUKOCYTE ESTERASE W NEGATIVE Aster/uL NEGATIVE REFLEX (test code = LEUUR) UA WBC (test code = WBCU) 0-5 per HPF 0-5 UA RBC (test code = RBCU) NONE SEEN per HPF 0-5 UA EPITHELIAL CELLS (test FEW per HPF FEW code = EPIU) UA BACTERIA (test code = FEW #/HPF NONE A BACU) UA HYALINE CAST (test 3-5 #/LPF 0-5 code = HYALU) Urine Source? Clean [id number] 11:38:00 Test Item Value Reference Range Interpretation Comments GLUBED (test code = 203 mg/dL 74-106 H Performe d by certified GLUBED) extraction operator at [facility] URINALYSIS [id number] 11:35:00 Test Item Value Reference Range Interpretation Comments UA COLOR (test code = COLORLESS YELLOW A COLU) UA APPEARANCE (test code CLEAR CLEAR = APPU) UA GLUCOSE DIPSTICK (test 50 (Trace) mg/dL NEGATIVE A code = DGLUU) UA BILIRUBIN DIPSTICK NEGATIVE mg/dL NEGATIVE (test code = BILU) UA KETONE DIPSTICK (test NEGATIVE mg/dL NEGATIVE code = KETU) UA SPECIFIC GRAVITY (test 1.009 1.001-1.035 code = SGU) UA BLOOD DIPSTICK (test 0.03 mg/dL (Trace) NEGATIVE A code = HENNY) mg/dL UA PH DIPSTICK (test code 5.5 5.0-8.0 = MAGALY) UA PROTEIN DIPSTICK (test 200 (2+) mg/dL NEGATIVE A code = PROU) UA UROBILINIOGEN DIPSTICK Normal mg/dL NEGATIVE (test code = URO) UA NITRITE DIPSTICK (test NEGATIVE NEGATIVE code = KENDAL) UA LEUKOCYTE ESTERASE W NEGATIVE Aster/uL NEGATIVE REFLEX (test code = LEUUR) UA WBC (test code = WBCU) per HPF 0-5 UA RBC (test code = RBCU) per HPF 0-5 UA EPITHELIAL CELLS (test per HPF Few code = EPIU) UA BACTERIA (test code = per HPF NONE BACU) Urine Source? Clean [id number] 07:40:00 Test Item Value Reference Range Interpretation Comments TROPONIN-I (test code = TROPI) 1.380 ng/mL 0-0.045 SPECIMEN COMMENTS: 0200 LAB- XR CHEST 1 [id number] 07:30:00 FAX: Piter Collins [phone] Clifford: B St: FAX: Reji Hernandez Name: BERTRAND YU [facility] : 1955 Age/S: 63/M [address] [facility] Unit #: [id number] Loc: Germ[place]6 [place] [address] Phys: Piter Collins Acct: [id number] Dis Date: Status: ADM IN PHONE #: [phone] Exam Date: 06/14/2019 0649 FAX #: [phone] Reason: updatedpulm view. EXAMS: CPT CODE: [id number] XR CHEST 1 V 75290 CLINICAL HISTORY: Respiratory failure, CHF TECHNIQUE: AP chest x-ray COMPARISON: Previous day. IMPRESSION: Improved patchy bilateral airspace opacification or pulmonary congestion. Small bilateral pleural effusions. Cardiomegaly. AICD/biv entricular pacer. LOCATION: at 0730 Reported and signed by: Eliz Ocampo D.O. CC: Piter Collins; Reji Hernandez MD Technologist: Chanell Anderson(R) Trnscrd Date/Time/By: 06/14/2019 (07) : By: [email or web address] Orig Print D/T: S: 06/14/2019 (0711) PAGE 1 Signed ReportBASIC METABOLIC [id number] 03:27:00 Test Item Value Reference Range Interpretation Comments SODIUM (test code = NA) 147 mmol/L 136-145 H POTASSIUM (test code = K) 4.6 mmol/L 3.5-5.1 N CHLORIDE (test code = CL) 116.0 mmol/L 98-107 H CARBON DIOXIDE (test code = CO2) mmol/L 21-32 ANION GAP (test code = GAP) 10-20 GLUCOSE (test code = GLU) mg/dL 74-106 BLOOD UREA NITROGEN (test code = mg/dL 7-18 BUN) GLOMERULAR FILTRATION RATE (test mL/min >=60 code = GFR) CREATININE (test code = CREAT) mg/dL 0.7-1.3 BUN/CREATININE RATIO (test code 10-20 = BUN/CREA) CALCIUM (test code = CA) mg/dL 8.5-10.1 [id number] 03:27:00 Test Item Value Reference Range Interpretation Comments MAGNESIUM (test code = MAG) mg/dL 1.8-2.4 BASIC METABOLIC [id number] 03:27:00 Test Item Value Reference Range Interpretation Comments SODIUM (test code = 147 mmol/L 136-145 H NA) POTASSIUM (test code 4.6 mmol/L 3.5-5.1 N = K) CHLORIDE (test code = 116.0 mmol/L 98-107 H CL) CARBON DIOXIDE (test 22.0 mmol/L 21-32 N code = CO2) ANION GAP (test code 13.6 10-20 N = GAP) GLUCOSE (test code = 229 mg/dL 74-106 H GLU) BLOOD UREA NITROGEN 51 mg/dL 7-18 H (test code = BUN) GLOMERULAR FILTRATION 24 mL/min >=60 Estima jose juan GFR by RATE (test code = using Praveen fied MDRD GFR) formula.Chronic kidney disease is defined as [facility] er kidney damageor GFR <60 mL/min/1.73 m2 for >3 months. CREATININE (test code 2.70 mg/dL 0.7-1.3 H = CREAT) BUN/CREATININE RATIO 18.8 10-20 N (test code = BUN/CREA) CALCIUM (test code = 7.3 mg/dL 8.5-10.1 L CA) [id number] 03:27:00 Test Item Value Reference Range Interpretation Comments MAGNESIUM (test code = MAG) 2.0 mg/dL 1.8-2.4 N CBC W/O [id number] 03:06:00 Test Item Value Reference Range Interpretation Comments WHITE BLOOD CELL (test code = 11.6 K/mm3 4.5-12.5 N WBC) RED BLOOD CELL (test code = 3.90 mill/mm3 4.0-5.8 L RBC) HEMOGLOBIN (test code = HGB) 11.3 gram/dL 13.0-17.5 L HEMATOCRIT (test code = HCT) 36.4 % 42.0-52.0 L MEAN CELL VOLUME (test code = 93.3 fL 80-98 N MCV) MEAN CELL HGB (test code = MCH) 29.0 picogram 27.0-33.0 N MEAN CELL HGB CONCETRATION 31.0 gram/dL 33.0-36.0 L (test code = MCHC) RED CELL DISTRIBUTION WIDTH 14.6 % 11.6-16.2 N (test code = RDW) PLATELET COUNT (test code = 221 K/mm3 150-450 N PLT) MEAN PLATELET VOLUME (test code 8.8 fL 6.7-11.0 N = MPV) [id number] 00:03:00 Test Item Value Reference Range Interpretation Comments TROPONIN-I (test 1.480 ng/mL 0-0.045 HH RESULT VERI FIED BY code = TROPI) REPEAT ANALYSI S COMMENTS TO BEE BREEDER: COLLECT 3 HOURS AFTER PREVIOUS SAMPLE- US RETRO [id number] 18:28:00 Name: BERTRAND YU [facility] : 1955 Age/S: 63 / M [address] Unit #: [id number] Loc: [place] [address] Phys: Reji Hernandez MD Acct: [id number] Dis Date: Status: ADM IN PHONE #: [phone] Exam Date: 06/13/2019 1703 FAX #: [phone] Reason: ckd EXAMS: CPTCODE: [id number] US RETRO LTD 88913 REASON FOR EXAM: ckd EXAM ORDER DATE: [...] x 4.8 cm. stones: none cysts/masses: none hydronephrosis: none Urinary Bladder: Ureteral jets: Not visualized Intraluminal masses/debris: None Wallthickness: Normal Outpouching: None IMPRESSION: Nonobstructive stone in the right kidney. Left kidney is within normal limits. Location: [facility] at 1828 Reported and signed by: Yoandy Calero MD PAGE 1 Signed Report (CONTINUED) Name: BERTRAND YU [facility] : 1955 Age/S: 63 / M [address] Unit #: [id number] Loc: [place] [address] Phys: Reji Hernandez MD Acct: [id number] Dis Date: Status: ADM IN PHONE #: [phone] Exam Date: 06/13/2019 1703 FAX #: [phone] Reason: ckd EXAMS: CPT CODE: [id number] [facility] [id number] <Continued> CC: Krystina Kowalski MD; Reji Hernandez MD T echnologist: Ladi Ruiz RDMS Trnscb Date/Time: 06/13/2019 (1827) [email or web address] Orig Print D/T: S: 06/13/2019 (183) Probe: PAGE 2 Signed Report PROTHROMBIN [id number] 14:57:00 Test Item Value Reference Range Interpretation Comments PROTHROMBIN TIME 13.2 seconds 9.0-14.0 N PATIENT (test code = PTP) INTERNATIONAL NORMAL 1.1 0.8-1.2 N The the rapeutic range RATIO (test code = for oral INR) anticoagulant t herapy formost indicat ions is an internati onal normalized rati o (INR)of between 2.0 and 3.0. The recommended therapeutic INR range for various cli nical situations is l isted below: Clinical Situat ion INR range Pulmonary embol ism treatment (2.0-3.0)Venou s thrombosis treatmentVenous thrombosis prophylaxis (hi gh risk surgery)Prevent ion of systemic emboli sm from: A cute myocardial infa rction Valvula r heart disease Atrial fibrilla tion Mechanical pros thetic heart valves (2.5-3.5) IS PATIENT ON ANTICOAGULANTS? NTHROMBOPLASTIN TIME [id number] 14:57:00 Test Item Value Reference Range Interpretation Comments THROMBOPLASTIN TIME PARTIAL 47.3 seconds 25.0-36.5 H (test code = PTT) IS PATIENT ON ANTICOAGULANTS? [id number] 14:57:00 Test Item Value Reference Range Interpretation Comments D-DIMER (test 53559.00 0-500 HH RESULT VERIFIE D BY REPEAT code = DDIMER) ng/mLFEU ANALYSISCriti ilda results verified and re ad back by Nurse? YClinica l Cut-off value for D-Dim er is 500 ng/mL FEU. Comm ent: The [employer] D-Dim er assay is intended for use asan aid in the diag nosis of venous thromboe mbolism (VTE)[deep vein thrombosis (DVT ) or pulmonary embol ism (PE)].The measu rement of D-Dimer should not be used as an aid inthe diagnosis of VT E, in patient with: -Therapeutic do se anticoagulant t herapy for >24 hours -Fib rinolytic therapy within previous 7 days -Trauma o r surgery within previous 4 weeks -Disseminated malignancies - Aortic aneurysm -Seps is, severe infections, pne umonia, severe skin i nfections -Liver cirrhosi s - IS PATIENT ON ANTICOAGULANTS? NB-TYPE NATRIURETIC [id number] 14:38:00 Test Item Value Reference Range Interpretation Comments B-TYPE NATRIURETIC PEPTIDE 1317.60 pgram/mL 0-100 H (test code = BNP) BASIC METABOLIC [id number] 14:36:00 Test Item Value Reference Range Interpretation Comments SODIUM (test code = 144 mmol/L 136-145 N NA) POTASSIUM (test code 4.6 mmol/L 3.5-5.1 N = K) CHLORIDE (test code = 110.0 mmol/L 98-107 H CL) CARBON DIOXIDE (test 26.0 mmol/L 21-32 N code = CO2) ANION GAP (test code 12.6 10-20 N = GAP) GLUCOSE (test code = 230 mg/dL 74-106 H GLU) BLOOD UREA NITROGEN 52 mg/dL 7-18 H (test code = BUN) GLOMERULAR FILTRATION 20 mL/min >=60 Estima jose juan GFR by RATE (test code = using Praveen fied MDRD GFR) formula.Chronic kidney disease is defined as eith er kidney damageor GFR <60 mL/min/1.73 m2 for >3 months. CREATININE (test code 3.20 mg/dL 0.7-1.3 H = CREAT) BUN/CREATININE RATIO 16.2 10-20 N (test code = BUN/CREA) CALCIUM (test code = 8.6 mg/dL 8.5-10.1 N CA) HEPATIC FUNCTION [id number] 14:36:00 Test Item Value Reference Range Interpretation Comments TOTAL PROTEIN (test 7.2 gram/dL 6.4-8.2 N code = PROT) ALBUMIN (test code = 2.4 g/dL 3.4-5.0 L ALB) GLOBULIN (test code = 4.8 gram/dL 2.7-4.2 H GLOB) ALBUMIN/GLOBULIN RATIO 0.5 0.75-1.50 L (test code = A/G) BILIRUBIN TOTAL (test 0.50 mg/dL 0.0-1.0 N code = BILT) BILIRUBIN DIRECT (test 0.13 mg/dL 0.0-0.20 N code = BILD) SGOT/AST (test code = 26 IUnit/L 15-37 N AST) SGPT/ALT (test code = 53 IUnit/L 12-78 N ALT) ALKALINE PHOSPHATASE 187 IUnit/L 45-117 H Note change in TOTAL (test code = reference range due ALKP) to change in reagent. CREATINE KINASE (CK)2019-06-13 14:36:00 Test Item Value Reference Range Interpretation Comments CREATINE KINASE (CK) (test code = 105 IUnit/L 26-208 N CK) [id number] 14:36:00 Test Item Value Reference Range Interpretation Comments LIPASE (test code = LIP) 241 U/L 73.0-393.0 N [id number] 14:36:00 Test Item Value Reference Range Interpretation Comments MAGNESIUM (test code = MAG) 2.3 mg/dL 1.8-2.4 N [id number] 14:36:00 Test Item Value Reference Range Interpretation Comments TROPONIN-I (test 1.890 ng/mL 0-0.045 HH Results ilda led to code = TROPI) [id number] by Azeem NOE 06/13/19 1433Cr itical results verifie d and read back by Nu rse? Y LACTIC [id number] 14:27:00 Test Item Value Reference Range Interpretation Comments LACTIC ACID (test code = LACT) 0.9 mmol/L 0.4-1.9 N BASIC METABOLIC [id number] 14:16:00 Test Item Value Reference Range Interpretation Comments SODIUM (test code = NA) 144 mmol/L 136-145 N POTASSIUM (test code = K) 4.6 mmol/L 3.5-5.1 N CHLORIDE (test code = CL) 110.0 mmol/L 98-107 H CARBON DIOXIDE (test code = CO2) mmol/L 21-32 ANION GAP (test code = GAP) 10-20 GLUCOSE (test code = GLU) mg/dL 74-106 BLOOD UREA NITROGEN (test code = mg/dL 7-18 BUN) GLOMERULAR FILTRATION RATE (test mL/min >=60 code = GFR) CREATININE (test code = CREAT) mg/dL 0.7-1.3 BUN/CREATININE RATIO (test code 1020 = BUN/CREA) CALCIUM (test code = CA) mg/dL 8.5-10.1 HEPATIC FUNCTION [id number] 14:16:00 Test Item Value Reference Range Interpretation Comments TOTAL PROTEIN (test code = PROT) gram/dL 6.4-8.2 ALBUMIN (test code = ALB) g/dL 3.4-5.0 GLOBULIN (test code = GLOB) gram/dL 2.7-4.2 ALBUMIN/GLOBULIN RATIO (test code = 0.75-1.50 A/G) BILIRUBIN TOTAL (test code = BILT) mg/dL 0.0-1.0 BILIRUBIN DIRECT (test code = BILD) mg/dL 0.0-0.20 SGOT/AST (test code = AST) IUnit/L 15-37 SGPT/ALT (test code = ALT) IUnit/L 12-78 ALKALINE PHOSPHATASE TOTAL (test IUnit/L 45-117 code = ALKP) CREATINE KINASE (CK)2019-06-13 14:16:00 Test Item Value Reference Range Interpretation Comments CREATINE KINASE (CK) (test code = IUnit/L 26-208 CK) [id number] 14:16:00 Test Item Value Reference Range Interpretation Comments LIPASE (test code = LIP) U/L 73.0-393.0 [id number] 14:16:00 Test Item Value Reference Range Interpretation Comments MAGNESIUM (test code = MAG) mg/dL 1.8-2.4 [id number] 14:16:00 Test Item Value Reference Range Interpretation Comments TROPONIN-I (test code = TROPI) ng/mL 0-0.045 CBC W/AUTO [id number] 14:10:00 Test Item Value Reference Range Interpretation Comments WHITE BLOOD CELL (test code = 15.6 K/mm3 4.5-12.5 H WBC) RED BLOOD CELL (test code = 4.06 mill/mm3 4.0-5.8 N RBC) HEMOGLOBIN (test code = HGB) 11.8 gram/dL 13.0-17.5 L HEMATOCRIT (test code = HCT) 38.6 % 42.0-52.0 L MEAN CELL VOLUME (test code = 95.1 fL 80-98 N MCV) MEAN CELL HGB (test code = MCH) 29.1 picogram 27.0-33.0 N MEAN CELL HGB CONCETRATION 30.6 gram/dL 33.0-36.0 L (test code = MCHC) RED CELL DISTRIBUTION WIDTH 14.6 % 11.6-16.2 N (test code = RDW) RED CELL DISTRIBUTION WIDTH SD 49.1 fL 37.0-51.0 N (test code = RDW-SD) PLATELET COUNT (test code = 255 K/mm3 150-450 N PLT) MEAN PLATELET VOLUME (test code 8.6 fL 6.7-11.0 N = MPV) NEUTROPHIL % (test code = NT%) 70.4 % 39.0-69.0 H IMMATURE GRANULOCYTE % (test 1.9 % 0.0-5.0 N code = IG%) LYMPHOCYTE % (test code = LY%) 19.7 % 25.0-55.0 L MONOCYTE % (test code = MO%) 4.3 % 0.0-10.0 N EOSINOPHIL % (test code = EO%) 3.2 % 0.0-5.0 N BASOPHIL % (test code = BA%) 0.5 % 0.0-1.0 N NUCLEATED RBC % (test code = 0.2 % 0-0 H NRBC%) NEUTROPHIL # (test code = NT#) 10.99 K/mm3 1.8-7.7 H IMMATURE GRANULOCYTE # (test 0.29 x10 3/uL 0-0.03 H code = IG#) LYMPHOCYTE # (test code = LY#) 3.08 K/mm3 1.0-5.0 N MONOCYTE # (test code = MO#) 0.67 K/mm3 0-0.8 N EOSINOPHIL # (test code = EO#) 0.50 K/mm3 0.0-0.5 N BASOPHIL # (test code = BA#) 0.08 K/mm3 0.0-0.2 N NUCLEATED RBC # (test code = 0.03 K/mm3 0.0-0.1 N NRBC#) - XR CHEST 1 [id number] 14:01:00 FAX: Krystina Banda [phone] Clifford: St: PRE Name: BERTRAND YU [facility] : 1955 Age/S: 63/M [address] [facility] Unit#: [id number] Loc: [place] [address] Phys: Krystina Kowalski MD Acct: [id number] Dis Date: Status: PRE ER PHONE #: [phone] Exam Date: 06/13/2019 1350 FAX #: [phone] Reason: SHORTNESS OF BREATH EXAMS: CPT CODE: [id number] XR CHEST 1 V 00433 HISTORY: Shortness of breath. COMPARISON: None available. Left ICD with the leads in the right atrium and right ventricle patchy right infiltrate. Left basal infiltrate as well. Dependent changes. No effusion. Cardiomegaly. IMPRESSION: Patchy bilateral infiltrates, greater on the right. at 1401 Reported and signed by: Anjum Helton M.D. CC: Krystina Kowalski MD Technologist: PINKY KONG RT(R) Trnscrd Date/Time/By: 06/13/2019 (1540) : By: [email or web address] Orig Print D/T: S: 06/13/2019 (2233) PAGE 1 Signed ReportARTERIAL BLOOD [id number] 13:59:00 Test Item Value Reference Range Interpretation Comments ARTERIAL BLOOD GAS PH 7.21 7.35-7.45 L (test code = PHA) ARTERIAL BLOOD GAS PCO2 62.9 mm Hg 35-45 H (test code = PCO2A) ARTERIAL BLOOD GAS PO2 117.7 mmHg 80-100 H (test code = PO2A) BICARBONATE TOTAL HCO3 24.8 mmol/L 23.0-27.0 N (test code = HCO3) BASE EXCESS (test code = -4.0 mmol/L -3.0-5.0 LL Res ults called RANGEL) to and read back by 13:57 - 06/13/2019; by SVITLANA ABG O2 SATURATION (test 97.4 % 90.0-98.0 N code = SATA) ABG TYPE (test code = Arterial TYPEA) FIO2 (test code = FIO2A) 100.0 ABG VENT MODE (test code BiPAP = MODEA) ABG VENT RESP RATE (test 18.0 per min code = RRA) ABG PEEP (test code = 5.0 cmH2O PEEPA) ABG SITE (test code = Rt RADIAL SITEA) ARTERY MODIFIED ALLENS (test Yes CHECK PERFORMED code = MODALL) SODIUM (test code = 141.0 mEq/L 135-148 N NA/ABG) POTASSIUM (test code = 4.8 mEq/L 3.5-4.5 H K/ABG) CHLORIDE (test code = 107 mEq/L 98-106 H CL/ABG) GLUCOSE (test code = 249 mg/dL 74-99 H GLU/ABG) HEMATOCRIT (test code = 39 % 42-52 L HCT/ABG) IONIZED CALCIUM (test 1.22 mmol/L 1.1-1.37 N code = CAIABG) TOTAL HGB (test code = 13.1 gram/dL 13.0-17.5 N THB) HGB O2 SAT (test code = 96.6 % 94.00-98.00 N HBOSAT) CARBOXYHEMOGLOBIN (test 0.5 %totalHg 0.5-1.5 N code = HOHGBT) METHEMOGLOBIN (test code 0.3 % 0.0-1.50 N = METHGB) O2 CONTENT (test code = 18.0 % vol 18.0-22.0 N O2CT)
--- NOTE | 2020-01-25 19:04 | ER ---
Nurse's Notes [facility] Name: Jarod Kraft Age: 64 yrs Sex: Male : 1955 Arrival Date: 01/25/2020 Time: 16:08 Bed 7 Private MD: Kimo Mckeon Diagnosis: Cellulitis to left foot/toes Presentation: 01/24 16:21 Chief complaint: Patient states: diabetic ulcer to 2nd toe on left foot, was referred iw by Dr. Mckeon for possible admission. Coronavirus screen: Proceed with normal triage. Patient denies a cough. Patient denies shortness of breath or difficulty breathing. Patient denies measured and/or subjective temperature greater than 100.4F prior to today's visit. Patient denies travel on a cruise ship or to a country the [facility] currently lists as an affected area. Patient denies contact with known and/or suspected case of COVID-19. Ebola Screen: Patient negative for fever greater than or equal to 101.5 degrees Fahrenheit, and additional compatible Ebola Virus Disease symptoms Patient denies exposure to infectious person. Patient denies travel to an Ebola-affected area in the 21 days before illness onset. No symptoms or risks identified at this time. Initial Sepsis Screen: Does the patient meet any 2 criteria? No. Patient's initial sepsis screen is negative. Does the patient have a suspected source of infection? No. Patient's initial sepsis screen is negative. Risk Assessment: Do you want to hurt yourself or someone else? Patient reports no desire to harm self or others. Onset of symptoms. 16:21 Method Of Arrival: Ambulatory iw 16:21 Acuity: ASAF 3 iw Historical: - Allergies: 16:26 erythromycin; iw - Home Meds: 16:26 levetiracetam 500 mg Oral tab 1 tab 2 times per day [Active]; Levemir 100 unit/mL iw subcutaneous soln [Active]; furosemide 20 mg Oral tab nightly [Active]; furosemide 40 mg Oral tab 1 tab once daily [Active]; amlodipine 10 mg tab 1 tab once daily [Active]; atorvastatin 40 mg oral tab 1 tab once daily [Active]; isosorbide mononitrate 30 mg Oral Tb24 1 tab once daily [Active]; carvedilol 25 mg oral tab 1 tab 2 times per day [Active]; clonidine HCl 0.2 mg Oral tab 1 tab 3 times per day [Active]; glipizide 10 mg Oral tab 1 tab 2 times per day [Active]; - PMHx: 16:26 CHF; Diabetes - IDDM; Hypertension; Irregular heart rate; iw - PSHx: 16:26 pacemaker; Cholecystectomy; iw - Immunization history:: Adult Immunizations up to date. - Social history:: Smoking status: Patient denies any tobacco usage or history of. Screenin:50 Abuse screen: Denies threats or abuse. Nutritional screening: No deficits noted. rb1 Tuberculosis screening: No symptoms or risk factors identified. Fall Risk None identified. Assessment: 17:50 General: Appears in no apparent distress. comfortable, Behavior is calm, cooperative, rb1 Reports chills for 1-2 days, Denies fever. Pain: Denies pain. Neuro: Level of Consciousness is awake, alert, obeys commands, Oriented to person, place, time, situation. Cardiovascular: Capillary refill is > 3 seconds toes. Respiratory: Airway is patent Respiratory effort is even, unlabored, Respiratory pattern is regular, symmetrical. GI: Patient currently denies diarrhea, nausea, vomiting. : No signs and/or symptoms were reported regarding the genitourinary system. Derm: Wound noted 2nd toe on Left Foot. Musculoskeletal: Swelling present in bilateral feet. 18:50 Reassessment: Patient appears in no apparent distress at this time. No changes from rb1 previously documented assessment. 19:33 General: Appears in no apparent distress. comfortable, Behavior is calm, cooperative, jd3 appropriate for age. Pain: Denies pain. Neuro: Level of Consciousness is awake, alert, obeys commands, Oriented to person, place, time, situation. Cardiovascular: Denies chest pain, Capillary refill < 3 seconds Patient's skin is warm and dry. Respiratory: Airway is patent Respiratory effort is even, unlabored, Respiratory pattern is regular, symmetrical, Denies cough, shortness of breath. GI: No signs and/or symptoms were reported involving the gastrointestinal system. : No signs and/or symptoms were reported regarding the genitourinary system. EENT: No signs and/or symptoms were reported regarding the EENT system. Derm: Skin is intact, Skin is dry, Skin is normal, Skin temperature is warm Wound noted left third toe Wound is red, swollen, weeping. Musculoskeletal: Circulation, motion, and sensation intact. Swelling present in left third toe. 22:39 Reassessment: Patient appears in no apparent distress at this time. Patient is alert, rr5 oriented x 3, equal unlabored respirations, skin warm/dry/pink. transferred to room 406 awake alert, vitally stable no complaints made. Vital Signs: 16:21 BP 137 / 77; Pulse 73; Resp 16; Temp 99.0; Pulse Ox 97% on R/A; Weight 117.03 kg; iw Height 5 ft. 6 in. (167.64 cm); Pain 0/10; 18:30 BP 119 / 69; Pulse 75; Resp 22; Pulse Ox 95% ; rb1 19:35 BP 136 / 92; Pulse 75; Resp 20 S; Pulse Ox 94% on R/A; jd3 21:00 BP 136 / 75; Pulse 76; Resp 17; Pulse Ox 94% ; rr5 21:43 BP 138 / 78; Pulse 71; Resp 19; Pulse Ox 93% on 3 lpm NC; rr5 22:26 BP 143 / 79; Pulse 73; Resp 20; Temp 99.1; Pulse Ox 95% on 3 lpm NC; rr5 16:21 Body Mass Index 41.64 (117.03 kg, 167.64 cm) iw ED Course: 16:08 Patient arrived in ED. ag5 16:09 Kimo Mckeon MD is Private Physician. ag5 16:23 Triage completed. iw 16:26 Arm band placed on. iw 17:41 Tres Acevedo MD is Attending Physician. kdr 17:44 Skye Doe, SHARRON is Primary Nurse. rb1 17:50 Patient has correct armband on for positive identification. Bed in low position. Call rb1 light in reach. Side rails up X 1. Pulse ox on. NIBP on. Warm blanket given. 18:55 Foot Left 3 View XRAY In Process Unspecified. EDMS 19:00 Initial lab(s) drawn, by me, sent to lab. First set of blood cultures drawn by me. mh5 19:01 Ag Olsen DO is Hospitalizing Provider. kdr 19:14 Inserted saline lock: 22 gauge in left forearm, using aseptic technique. Blood 5 collected. 19:17 Basic Metabolic Panel Sent. mh5 22:26 No provider procedures requiring assistance completed. Patient admitted, IV remains in rr5 place. intact, No redness/swelling at site. Administered Medications: 19:32 Drug: vancoMYCIN 1.5 grams Route: IVPB; Rate: calculated rate; Site: left forearm; jd3 Outcome: 19:03 Decision to Hospitalize by Provider. kdr 22:26 Admitted to Tele accompanied by tech, via stretcher, room 406, with oxygen, with chart, rr5 Report called to sarabjit 22:26 Condition: stable 22:26 Instructed on the need for admit. 22:49 Patient left the ED. rr5 Signatures: Dispatcher [employer] EDMS Tres Acevedo MD MD kdr Williams, Irene, RN RN iw Skye Doe RN RN rb1 Makeda Kraft Shlomo Liao RN RN jd3 Roque, Raymond, RN RN rr5 Sonia Redmond ag5 Corrections: (The following items were deleted from the chart) 22:26 21:00 BP 136 / 75; Pulse 76bpm; Resp 17bpm; Pulse Ox 99%; rr5 rr5 22:26 21:43 BP 138 / 78; Pulse 71bpm; Resp 19bpm; Pulse Ox 97%; rr5 rr5
--- NOTE | 2020-01-25 19:04 | EDPHYS ---
Physician Documentation [facility] Name: Jarod Kraft Age: 64 yrs Sex: Male : 1955 Arrival Date: 01/25/2020 Time: 16:08 Bed 7 Private MD: Kimo Mckeon ED Physician Tres Acevedo HPI: 01/24 18:49 This 64 yrs old Male presents to ER via Ambulatory with complaints of Foot kdr Wound. 18:49 The patient presents with an abscess, moderate-sized, decreased range of motion, kdr tenderness. The complaints affect the left foot. Context: The problem was sustained at home, resulted from an unknown cause, the patient can fully bear weight, the patient is able to ambulate. Onset: The symptoms/episode began/occurred gradually, 2 week(s) ago. Modifying factors: The symptoms are alleviated by nothing, the symptoms are aggravated by movement, wearing shoes. Associated signs and symptoms: Pertinent positives: swelling, warmth. Severity of symptoms: At their worst the symptoms were moderate, just prior to arrival, this morning, in the emergency department the symptoms are unchanged. The patient has not experienced similar symptoms in the past. The patient has been recently seen by a physician: Was put on Cipro for one day. Historical: - Allergies: 16:26 erythromycin; iw - Home Meds: 16:26 levetiracetam 500 mg Oral tab 1 tab 2 times per day [Active]; Levemir 100 unit/mL iw subcutaneous soln [Active]; furosemide 20 mg Oral tab nightly [Active]; furosemide 40 mg Oral tab 1 tab once daily [Active]; amlodipine 10 mg tab 1 tab once daily [Active]; atorvastatin 40 mg oral tab 1 tab once daily [Active]; isosorbide mononitrate 30 mg Oral Tb24 1 tab once daily [Active]; carvedilol 25 mg oral tab 1 tab 2 times per day [Active]; clonidine HCl 0.2 mg Oral tab 1 tab 3 times per day [Active]; glipizide 10 mg Oral tab 1 tab 2 times per day [Active]; - PMHx: 16:26 CHF; Diabetes - IDDM; Hypertension; Irregular heart rate; iw - PSHx: 16:26 pacemaker; Cholecystectomy; iw - Immunization history:: Adult Immunizations up to date. - Social history:: Smoking status: Patient denies any tobacco usage or history of. ROS: 18:49 MS/extremity: Positive for abrasion, decreased range of motion, ecchymosis, erythema, kdr swelling, tenderness, Drainage from dorsum of third toe, of the left third toe. 18:49 Constitutional: Negative for fever, chills, and weight loss, Eyes: Negative for injury, pain, redness, and discharge, Neck: Negative for injury, pain, and swelling, Cardiovascular: Negative for chest pain, palpitations, and edema, Respiratory: Negative for shortness of breath, cough, wheezing, and pleuritic chest pain, Abdomen/GI: Negative for abdominal pain, nausea, vomiting, diarrhea, and constipation, Back: Negative for injury and pain. Exam: 18:49 Musculoskeletal/extremity: Extremities: grossly normal except: noted in the left third kdr toe: decreased ROM, erythema, swelling, tenderness. 19:04 Constitutional: This is a well developed, well nourished patient who is awake, alert, kdr and in no acute distress. Vital Signs: 16:21 BP 137 / 77; Pulse 73; Resp 16; Temp 99.0; Pulse Ox 97% on R/A; Weight 117.03 kg; iw Height 5 ft. 6 in. (167.64 cm); Pain 0/10; 18:30 BP 119 / 69; Pulse 75; Resp 22; Pulse Ox 95% ; rb1 19:35 BP 136 / 92; Pulse 75; Resp 20 S; Pulse Ox 94% on R/A; jd3 21:00 BP 136 / 75; Pulse 76; Resp 17; Pulse Ox 94% ; rr5 21:43 BP 138 / 78; Pulse 71; Resp 19; Pulse Ox 93% on 3 lpm NC; rr5 22:26 BP 143 / 79; Pulse 73; Resp 20; Temp 99.1; Pulse Ox 95% on 3 lpm NC; rr5 16:21 Body Mass Index 41.64 (117.03 kg, 167.64 cm) iw MDM: 19:03 Patient medically screened. kdr 19:03 Data reviewed: vital signs, nurses notes, lab test result(s), radiologic studies. kdr Counseling: I had a detailed discussion with the patient and/or guardian regarding: the historical points, exam findings, and any diagnostic results supporting the discharge/admit diagnosis, lab results, radiology results, the need for further work-up and treatment in the hospital. 01/24 18:15 Order name: CBC with Diff [facility] 01/24 18:15 Order name: Basic Metabolic Panel [facility] 01/24 18:15 Order name: Blood Culture Adult (2) kdr 01/24 18:15 Order name: Lactate kdr 01/24 18:15 Order name: Procalcitonin [facility] 01/24 18:15 Order name: Urine Microscopic Only [facility] 01/24 18:11 Order name: Foot Left 3 View XRAY [facility] 01/24 18:15 Order name: Accucheck; Complete Time: 19:13 [facility] 01/24 18:16 Order name: CBC with Automated Diff [facility] 01/24 19:09 Order name: Glucose, Ancillary Testing [facility] 01/24 19:56 Order name: Urine Dipstick--Ancillary (enter results) em[facility] 01/24 22:02 Order name: CONS Pharmacy Consult [facility] 01/24 22:02 Order name: NPO [facility] 01/24 18:15 Order name: Cardiac monitoring; Complete Time: 19:28 [facility] 01/24 18:15 Order name: EKG - Nurse/Tech; Complete Time: 19:28 [facility] 01/24 18:15 Order name: IV Saline Lock - Large Bore; Complete Time: 19:13 [facility] 01/24 18:15 Order name: Labs collected and sent; Complete Time: 19:16 [facility] 01/24 18:15 Order name: O2 Per Protocol; Complete Time: 18:23 [facility] 01/24 18:15 Order name: O2 Sat Monitoring; Complete Time: 18:23 [facility] 01/24 18:15 Order name: Urine Dipstick-Ancillary (obtain specimen); Complete Time: 19:54 kdr Administered Medications: 19:32 Drug: vancoMYCIN 1.5 grams Route: IVPB; Rate: calculated rate; Site: left forearm; jd3 Disposition: 01/25/20 19:03 Hospitalization ordered by Ag Olsen for Inpatient Admission. Preliminary diagnosis is Cellulitis to left foot/toes. - Bed requested for Telemetry/MedSurg (Inpatient). - Status is Inpatient Admission. rr5 - Condition is Fair. - Problem is an ongoing problem. - Symptoms are unchanged. Signatures: Dispatcher [facility] Chanell Marcial RN RN Tres Acevedo MD MD kdr Tanya Conway, SHARRON RN iw Shlomo Dela Cruz, RN RN jd3 Ashwin Izaguirre RN RN rr5 Corrections: (The following items were deleted from the chart) 22:12 19:03 Hospitalization Ordered by Ag Olsen DO for Inpatient Admission. Preliminary dw diagnosis is Cellulitis to left foot/toes. Bed requested for Telemetry/MedSurg (Inpatient). Status is Inpatient Admission. Condition is Fair. Problem is an ongoing problem. Symptoms are unchanged. kdr 22:49 22:12 01/25/2020 19:03 Hospitalization Ordered by Ag Olsen DO for Inpatient rr5 Admission. Preliminary diagnosis is Cellulitis to left foot/toes. Bed requested for Telemetry/MedSurg (Inpatient). Status is Inpatient Admission. Condition is Fair. Problem is an ongoing problem. Symptoms are unchanged. dw
--- NOTE | 2020-01-25 19:04 | RAD REPORT ---
EXAM DESCRIPTION: RAD - Foot Left 3 View - 01/25/2020 6:55 pm CLINICAL HISTORY: celluitis;Pain COMPARISON: Foot Left 2 View dated 09/11/2016 FINDINGS: Nondisplaced fractures present in the second toe middle phalanx. History indicates diabeti c ulcer of the second toe. In this setting, pathologic fracture from osteomyelitis would be suspected . Trauma etiology can have this appearance as well. Elsewhere no other evidence for fracture or bone destructive change. Soft tissue swelling is present. Arterial calcifications seen. Small plantar spur present. No air or foreign body in the soft tissues. IMPRESSION: Nondisplaced fracture involves the second toe middle phalanx. In the setting of a diabetic ulcer of the second toe, finding would be suspicious for osteomyelitis p athologic fracture.
[2020-01-25] MEDS ORDERED: VANCOMYCIN 1 GM/VIAL ONE (19:26)
[2020-01-25] MEDS ORDERED: NA CHLORIDE 0.9% 250 ML ONE (19:26)
[2020-01-25 19:30] LABS: Potassium 4.3 mmol/L (3.5-5.1)
[2020-01-25 19:42] LABS: Absolute Lymphocytes (CBC) 1.3 K/uL (0.7-4.9); Basophils % 0.3 % (0-1.3); Hematocrit 34.1 % (39.6-49.0); Lymphocytes % 14.7 % (15.3-44.8); MPV 7.1 fL (7.6-11.3); RBC Red Blood Cell Count 3.89 M/uL (4.33-5.43)
[2020-01-25 19:55] LABS: Urine Bacteria NONE SEEN /HPF (NONE SEEN); Urine RBC <5 /HPF (NONE SEEN)
[2020-01-25 19:56] LABS: Urine Culture Reflex Order NOT NEEDED
[2020-01-25] MEDS ORDERED: ONDANSETRON 4 MG/2 ML VIAL IV PRN (21:52)
[2020-01-25] MEDS ORDERED: ACETAMINOPHEN 500 MG TAB PO PRN (21:52)
[2020-01-25] MEDS ORDERED: MORPHINE 2 MG/ML SYR IV PRN (21:52)
[2020-01-25 22:42] LABS: Urine Blood 1+ (NEG); Urine Glucose NEGATIVE (NEG); Urine Protein 2+ (NEG); Urine pH 5.5 (5.0-7.0)
[2020-01-25 23:02] VITALS: BMI 41.8
[2020-01-26] MEDS: CLINDAMYCIN PHOSPHATE 600 MG in NA CHLORIDE 0.9% 50 ML IV SCH ×4 (01:00→18:51)
[2020-01-26] MEDS ORDERED: CLINDAMYCIN IV 150 MG/ML (6 mL) VIAL ONE (01:27)
[2020-01-26] MEDS ORDERED: NA CHLORIDE 0.9% 100 ML IV ONE (01:29)
--- NOTE | 2020-01-26 03:50 | P.HP ---
Certification for Inpatient Patient admitted to: Inpatient With expected LOS: >2 Midnights Patient will require the following post-hospital care: None Practitioner: I am a practitioner with admitting privileges, knowledge of patient current condition, hospital course, and medical plan of care. Services: Services provided to patient in accordance with Admission requirements found in Title 42 Section 412.3 of the Code of Federal Regulations Patient History Date of Service: 01/25/20 Reason for admission: Diabetic foot ulcer; left foot cellulitis History of Present Illness: Patient is a 64-year-old gentleman who came to the hospital with cellulitis of the left foot. Patient had x-rays done which suggested that patient may have osteomyelitis. Patient also had a nondisplaced fracture of the 2nd toe of the middle phalanx. This was concerning for osteomyelitis. Will Consult general surgery. The patient gets an amputation then possible discharge in the next 48 hrs. Otherwise patient may need 6 weeks of IV antibiotics. Allergies ciprofloxacin Allergy (Severe, Verified 01/25/20 23:12) Hives/Rash erythromycin base Allergy (Intermediate, Verified 09/09/19 04:39) GI upset/burning Home Medications: Amlodipine [Norvasc*] 10 mg PO DAILY 09/11/16 Glipizide [Glipizide ER] 10 mg PO BID 09/11/16 Insulin Detemir [Levemir*] 30 units SQ BID 09/11/16 carvediloL [Coreg*] 25 mg PO BID 09/11/16 levETIRAcetam [Levetiracetam] 500 mg PO BID 09/11/16 Atorvastatin Calcium 1 tab PO DAILY 06/30/19 Clonidine HCl [Catapres*] 1 tab PO TID 06/30/19 Furosemide 40 mg PO DAILY 07/02/19 Furosemide [Lasix*] 20 mg PO BEDTIME 09/09/19 Isosorbide Mononitrate [Isosorbide Mononitrate ER] 30 mg PO DAILY 09/09/19 terbinafine HCL [Terbinafine HCl] 250 mg PO DAILY 01/25/20 - Past Medical/Surgical History Has patient received pneumonia vaccine in the past: Yes Diabetic: Yes -: Hypertension -: Diabetes mellitus type 2, insulin-dependent -: CAD with pacemaker -: Hyperlipidemia -: Diabetic neuropathy -: CHF -: Pacemaker placement -: Cholecystectomy Psychosocial/ Personal History: Patient is - Family History Father Medical History: Heart disease Mother Medical History: Diabetes - Social History Smoking Status: Former smoker Alcohol use: No CD- Drugs: No Caffeine use: Yes Place of Residence: Home Review of Systems 10-point ROS is otherwise unremarkable Physical Examination - Vital Signs Temperature: 98.0 F Blood Pressure: 122/67 Pulse: 68 Respirations: 16 Pulse Ox (%): 91 - Physical Exam General: Alert, In no apparent distress, Oriented x3 HEENT: Atraumatic, PERRLA, Mucous membr. moist/pink, EOMI, Sclerae nonicteric Neck: Supple, 2+ carotid pulse no bruit, No LAD, Without JVD or thyroid abnormality Respiratory: Clear to auscultation bilaterally, Normal air movement Cardiovascular: Regular rate/rhythm, Normal S1 S2, No murmurs Gastrointestinal: Normal bowel sounds, Soft and benign, Non-distended, No tenderness Musculoskeletal: No clubbing, No swelling, Erythema, Tenderness, Warmth Integumentary: Tenderness/swelling, Diabetic ulcer, Arterial ulcer Neurological: Normal gait, Normal speech, Normal strength at 5/5 x4 extr, Normal tone, Sensation intact, Cranial nerves 3-12 intact, Normal affect Lymphatics: No axilla or inguinal lymphadenopathy - Studies Laboratory Data (last 24 hrs) 01/25/20 19:00: Sodium 141, Potassium 4.3, BUN 82 H, Creatinine 4.00 H, Glucose 83 01/25/20 19:00: WBC 9.1, Hgb 11.2 L, Hct 34.1 L, Plt Count 278 Assessment & Plan - Problems (Diagnosis) (1) Acute worsening of stage 3 chronic kidney disease Current Visit: No Status: Acute (2) CHF exacerbation Current Visit: No Status: Acute (3) Cellulitis Onset Date: 09/14/16 Current Visit: No Status: Acute Qualifiers: (4) Diabetic foot ulcer with osteomyelitis Onset Date: 09/14/16 Current Visit: No Status: Acute (5) CKD (chronic kidney disease) stage 3, GFR 30-59 ml/min Onset Date: 09/14/16 Current Visit: No Status: Chronic (6) Diabetes type 2, controlled Onset Date: 09/14/16 Current Visit: No Status: Chronic Qualifiers: (7) Essential hypertension Onset Date: 09/14/16 Current Visit: No Status: Chronic (8) History of permanent cardiac pacemaker placement Current Visit: No Status: Chronic (9) Neuropathy Onset Date: 09/14/16 Current Visit: No Status: Chronic - Plan 1. Continue with IV antibiotic 2. Continue with local wound care 3. Surgical consultation 4. Gentle IV hydration 5. Monitor CBC 6. Strict blood sugar monitoring 7. Pain control 8. Continue with cardiac medications 9. GI and DVT prophylaxis Discharge Plan: Home Plan to discharge in: Greater than 2 days - Advance Directives Does patient have a Living Will: No Does patient have a Durable POA for Healthcare: No - Code Status/Comfort Care Code Status Assessed: Yes Code Status: Full Code Critical Care: No Time Spent Managing PTS Care (In Minutes): 45
[2020-01-26 06:55] LABS: Basophils % 0.3 % (0-1.3); Hematocrit 30.8 % (39.6-49.0); Lymphocytes % 13.2 % (15.3-44.8); MPV 6.9 fL (7.6-11.3); RBC Red Blood Cell Count 3.51 M/uL (4.33-5.43)
[2020-01-26 07:33] LABS: Albumin 2.5 g/dL (3.4-5.0); Bilirubin Total 0.5 mg/dL (0.2-1.0); Magnesium 2.6 mg/dL (1.8-2.4); Phosphorus 4.9 mg/dL (2.5-4.9); Protein, Total 6.6 g/dL (6.4-8.2)
[2020-01-26] MEDS: levETIRAcetam 500 MG TAB PO SCH ×2 (07:39→19:51)
[2020-01-26] MEDS: ISOSORBIDE MONO SR 30 MG TAB PO SCH (07:39)
[2020-01-26] MEDS: cloNIDine HCL 0.1 MG TAB PO SCH ×3 (07:39→19:52)
[2020-01-26] MEDS: ATORVASTATIN 40 MG TAB PO SCH (07:40)
[2020-01-26] MEDS: AMLODIPINE 10 MG TAB PO SCH (07:40)
[2020-01-26] MEDS: carvediloL 25 MG TAB PO SCH ×2 (07:40→19:51)
[2020-01-26] MEDS: GLIPIZIDE S.A. 5 MG TAB PO SCH ×2 (07:41→20:19)
[2020-01-26] MEDS: INSULIN GLARGINE 100 UNITS/ML SQ SCH ×2 (07:41→20:19)
[2020-01-26] MEDS ORDERED: MORPHINE 4 MG/ML SYR IV PRN (07:41)
[2020-01-26] MEDS: terbinafine HCL 250 MG TAB PO SCH (07:46)
--- NOTE | 2020-01-26 11:52 | EKG ---
Test Date: 2020-01-25 Test Time: 19:24:40 University Professor: TT MEASUREMENT RESULTS: Intervals: Rate: 68 FL: 132 QRSD: 156 QT: 490 QTc: 521 [place]: P: 57 FL: 132 QRS: 254 T: 89 INTERPRETIVE STATEMENTS: Electronic ventricular pacemaker Compared to ECG 06/30/2019 13:20:23 Atrial-sensed ventricular-paced complex(es) or rhythm no longer present Electronically Signed On 01-26-20 11:50:15 CDT by Shreyas Corbin
[2020-01-26] MEDS ORDERED: NA CHLORIDE 0.9% 1,000 ML ONE (16:21)
--- NOTE | 2020-01-26 17:17 | P.CNS ---
Date of Consult: 01/26/20 PC: I was asked to see this 64-year-old male who presents emergency room with infection and pain in his 2nd toe, left foot. HPC: Patient is diabetic, not very well controlled at noticed that he was having increasing pain as well as another coming from his 2nd toe on his left foot. He was brought to the operating room for assessment. PMH: Diabetes, hypertension, coronary artery disease, PVD SOC: Allergic to Cipro and erythromycin SYS REVIEW: Not very mobile at home, frustrated by his diabetes. He denies any other complaints. O/E awake alert stable HEENT: Within normal limits Chest: Chest movement equal bilaterally ABD: Soft LOCO: The patient has obvious necrotic ulcer on the 2nd toe of his left foot. There is also another 1 between the 2nd and 3rd toe on that surface. X-ray shows a nondisplaced fracture consistent with possible osteomyelitis. DATA: X-rays as mentioned above. IMPRESSION: Non salvageable 2nd toe left foot PLAN: I will take him the operating room for amputation of the 2nd toe. The risks of this procedure have been discussed. The possibility of bleeding, infection, injury to surrounding structures were explained. The possible need for further surgery pains including higher levels of amputation were explained. He understands and wants to proceed. It is possible that may also leave this wound open depending on what we find and depending on the viability of the surrounding tissue.
[2020-01-26] MEDS ORDERED: propofoL 200 MG/20 ML VIAL IV ONE (17:22)
[2020-01-26] MEDS ORDERED: ONDANSETRON 4 MG/2 ML VIAL ONE (17:22)
[2020-01-26] MEDS ORDERED: MIDAZOLAM HCL 2 MG/2 ML INJ ONE (17:22)
[2020-01-26] MEDS ORDERED: dexAMETHasone 4 MG/ML VIAL ONE (17:22)
[2020-01-26] MEDS ORDERED: LIDOCAINE 1% MPF 5 ML VIAL ONE (17:22)
[2020-01-26] MEDS ORDERED: FENTANYL CITR 100 MCG/2 ML ONE (17:22)
--- NOTE | 2020-01-26 18:05 | P.OP ---
Preoperative diagnosis: Gangrene and osteomyelitis of the 2nd left toe Postoperative diagnosis: The same Primary procedure: Amputation of the 2nd left toe Anesthesia: General Estimated blood loss: Less than 10 cc Specimen: Sent for histopathology Operative Technique: The patient brought the operating room and placed supine on the table. After induction of adequate general anesthesia, the area of the left foot and toes was prepped with a Betadine solution, draped in usual aseptic manner. Attention was turned towards the 2nd toe. We could see at the middle of phalanx there was it open area of full-thickness skin loss. This came all way down to the joint and in fact the joint between the 2nd and 3rd portion of the phalanx was open and visible. There was purulent foul-smelling necrotic tissue covering this bone. AE skin incision was made down on more viable tissue. This broad full-thickness around saving skin on the inferior portion to allow us for a closure. The bone was now fully identified. It was divided using the small bone cutters. The neighbors was used is to take the bone back as far as possible. We took some of the ball callus surrounding tissue using a I a 11 blade. We were now able to approximate the skin. This was done after ensuring hemostasis was judicious use of the electro cautery. The skin was approximated with 2 0 nylon. 3 interrupted sutures were used. The area was then infiltrated with Marcaine. After drying off and clean the area and derma hernandez was used to fully cover the area of the skin edges. At this point, a sterile dressing was applied stable when sent to the recovery room. Needle sponge instrument count were correct. Specimens were sent for histopathology. Complications: None Transferred to: Recovery Room Condition: Good
[2020-01-26] MEDS ORDERED: HYDROCODONE/APAP 7.5/325 MG TAB PO PRN (18:34)
[2020-01-27] MEDS: CLINDAMYCIN PHOSPHATE 600 MG in NA CHLORIDE 0.9% 50 ML IV SCH ×2 (00:06→08:56)
--- NOTE | 2020-01-27 05:08 | P.PN ---
Subjective Date of Service: 01/26/20 Subjective: No new changes, No C/O voiced, Improving Review of Systems 10-point ROS is otherwise unremarkable Physical Examination - Vital Signs Temperature: 98.0 F Blood Pressure: 122/67 Pulse: 68 Respirations: 16 Pulse Ox (%): 91 - Physical Exam General: Alert, In no apparent distress, Oriented x3 Respiratory: Clear to auscultation bilaterally, Normal air movement Cardiovascular: Regular rate/rhythm, Normal S1 S2, Systolic murmur Gastrointestinal: Normal bowel sounds, Soft and benign, Non-distended, No tenderness Musculoskeletal: No clubbing, No swelling, Erythema, Tenderness Integumentary: Tenderness/swelling, Erythema, Warmth - Studies Medications List Reviewed: Yes Assessment & Plan - Problems (Diagnosis) (1) Acute worsening of stage 3 chronic kidney disease Current Visit: No Status: Acute (2) CHF exacerbation Current Visit: No Status: Acute (3) Cellulitis Onset Date: 09/14/16 Current Visit: No Status: Acute Qualifiers: (4) Diabetic foot ulcer with osteomyelitis Onset Date: 09/14/16 Current Visit: No Status: Acute (5) CKD (chronic kidney disease) stage 3, GFR 30-59 ml/min Onset Date: 09/14/16 Current Visit: No Status: Chronic (6) Diabetes type 2, controlled Onset Date: 09/14/16 Current Visit: No Status: Chronic Qualifiers: (7) Essential hypertension Onset Date: 09/14/16 Current Visit: No Status: Chronic (8) History of permanent cardiac pacemaker placement Current Visit: No Status: Chronic (9) Neuropathy Onset Date: 09/14/16 Current Visit: No Status: Chronic - Plan 1. Continue with IV antibiotic 2. Continue with local wound care 3. Surgical consultation appreciated; patient status post amputation 4. Gentle IV hydration 5. Monitor CBC 6. Strict blood sugar monitoring 7. Pain control 8. Continue with cardiac medications 9. GI and DVT prophylaxis Discharge Plan: Home Plan to discharge in: Greater than 2 days - Advance Directives Does patient have a Living Will: No Does patient have a Durable POA for Healthcare: No - Code Status/Comfort Care Code Status: Full Code Critical Care: No Time Spent Managing PTS Care (In Minutes): 30
[2020-01-27 06:36] LABS: Absolute Lymphocytes (CBC) 0.7 K/uL (0.7-4.9); Basophils % 0.2 % (0-1.3); Lymphocytes % 10.7 % (15.3-44.8); MPV 6.7 fL (7.6-11.3)
[2020-01-27 06:59] LABS: Magnesium 2.8 mg/dL (1.8-2.4); Phosphorus 5.9 mg/dL (2.5-4.9); Potassium 4.5 mmol/L (3.5-5.1)
[2020-01-27 07:29] LABS: Blood Morphology Comment NOT SEEN (NOT SEEN); Platelet Estimate ADEQ; Urine White Blood Cell Casts OK
[2020-01-27] MEDS: cloNIDine HCL 0.1 MG TAB PO SCH (08:54)
[2020-01-27] MEDS: levETIRAcetam 500 MG TAB PO SCH (08:54)
[2020-01-27] MEDS: AMLODIPINE 10 MG TAB PO SCH (08:55)
[2020-01-27] MEDS: ISOSORBIDE MONO SR 30 MG TAB PO SCH (08:55)
[2020-01-27] MEDS: carvediloL 25 MG TAB PO SCH (08:55)
[2020-01-27] MEDS: INSULIN GLARGINE 100 UNITS/ML SQ SCH (08:56)
[2020-01-27] MEDS: terbinafine HCL 250 MG TAB PO SCH (09:33)
[2020-01-27] MEDS: ATORVASTATIN 40 MG TAB PO SCH (09:34)
[2020-01-27] MEDS: GLIPIZIDE S.A. 5 MG TAB PO SCH (09:34)
[2020-01-27 09:56] VITALS: O2SAT 98
[2020-01-27 13:25] VITALS: BP 114/56; TEMP 97
[2020-01-28] MEDS ORDERED: FUROSEMIDE 20 MG TABLET PO SCH ×2 (09:00→21:00)
--- NOTE | 2020-01-30 13:28 | P.DS ---
Discharge Date: 01/27/20 Disposition: ROUTINE DISCHARGE Discharge Condition: GOOD Reason for Admission: Diabetic foot ulcer; left foot cellulitis Consultations: General surgery - Problems (1) Acute worsening of stage 3 chronic kidney disease Status: Acute (2) CHF exacerbation Status: Acute (3) Cellulitis Onset Date: 09/14/16 Status: Acute Qualifiers: (4) Diabetic foot ulcer with osteomyelitis Onset Date: 09/14/16 Status: Acute (5) CKD (chronic kidney disease) stage 3, GFR 30-59 ml/min Onset Date: 09/14/16 Status: Chronic (6) Diabetes type 2, controlled Onset Date: 09/14/16 Status: Chronic Qualifiers: (7) Essential hypertension Onset Date: 09/14/16 Status: Chronic (8) History of permanent cardiac pacemaker placement Status: Chronic (9) Neuropathy Onset Date: 09/14/16 Status: Chronic Brief History of Present Illness: Patient is a 64-year-old gentleman who came to the hospital with cellulitis of the left foot. Patient had x-rays done which suggested that patient may have osteomyelitis. Patient also had a nondisplaced fracture of the 2nd toe of the middle phalanx. This was concerning for osteomyelitis. Will Consult general surgery. The patient gets an amputation then possible discharge in the next 48 hrs. Otherwise patient may need 6 weeks of IV antibiotics. Hospital Course: Patient was taken to the operating room by general surgery and had the 2nd toe with osteomyelitis removed. Patient will be discharged on oral antibiotic without patient followup with surgery in 1-2 weeks. Strict blood pressure and blood sugar control. Medication for pain as well as antibiotics. Vital Signs/Physical Exam: Temp Pulse Resp BP Pulse Ox 97 F 60 18 114/56 L 98 01/27/20 12:00 01/27/20 12:00 01/27/20 12:00 01/27/20 12:00 01/27/20 12:00 General: Alert, In no apparent distress, Oriented x3 Laboratory Data at Discharge: WBC 7.0 K/uL (4.3-10.9) 01/27/20 06:15 Hgb 10.1 g/dL (13.6-17.9) L 01/27/20 06:15 Hct 31.0 % (39.6-49.0) L 01/27/20 06:15 Plt Count 247 K/uL (152-406) 01/27/20 06:15 Sodium 141 mmol/L (136-145) 01/27/20 06:15 Potassium 4.5 mmol/L (3.5-5.1) 01/27/20 06:15 BUN 85 mg/dL (7-18) H 01/27/20 06:15 Creatinine 4.02 mg/dL (0.55-1.3) H 01/27/20 06:15 Glucose 246 mg/dL (74-106) H 01/27/20 06:15 Phosphorus 5.9 mg/dL (2.5-4.9) H 01/27/20 06:15 Magnesium 2.8 mg/dL (1.8-2.4) H 01/27/20 06:15 Total Bilirubin 0.5 mg/dL (0.2-1.0) 01/26/20 06:38 AST 18 U/L (15-37) 01/26/20 06:38 ALT 30 U/L (12-78) 01/26/20 06:38 Alkaline Phosphatase 84 U/L (45-117) 01/26/20 06:38 Home Medications: Amlodipine [Norvasc*] 10 mg PO DAILY 09/11/16 Glipizide [Glipizide ER] 10 mg PO BID 09/11/16 Insulin Detemir [Levemir*] 30 units SQ BID 09/11/16 carvediloL [Coreg*] 25 mg PO BID 09/11/16 levETIRAcetam [Levetiracetam] 500 mg PO BID 09/11/16 Atorvastatin Calcium 1 tab PO DAILY 06/30/19 Clonidine HCl [Catapres*] 1 tab PO TID 06/30/19 Furosemide 40 mg PO DAILY 07/02/19 Furosemide [Lasix*] 20 mg PO BEDTIME 09/09/19 Isosorbide Mononitrate [Isosorbide Mononitrate ER] 30 mg PO DAILY 09/09/19 terbinafine HCL [Terbinafine HCl] 250 mg PO DAILY 01/25/20 Codeine/APAP [Tylenol W/Codeine #3 tab] 1 tab PO Q6HP PRN #30 tab 01/27/20 Minocycline HCl 100 mg PO BID #14 capsule 01/27/20 New Medications: Minocycline HCl 100 mg PO BID #14 capsule Codeine/APAP [Tylenol W/Codeine #3 tab] 1 tab PO Q6HP PRN #30 tab PRN Reason: Pain Patient Discharge Instructions: OK TO DC IV AND DC HOME. FOLLOW-UP WITH PRIMARY CARE PROVIDER IN 1-2 WEEKS. FOLLOW-UP WITH surgeon IN 1-2 WEEKS. RETURN TO THE ER IF symptoms worsen. CALL or TEXT DR. DUTTA AT [phone] IF ANY QUESTIONS REGARDING HOSPITAL STAY. PLEASE CALL THE FLOOR AT [phone] IF ANY MEDICATION OR NURSING QUESTIONS. Diet: ADA Activity: Fall precautions Time spent managing pt's care (in minutes): 20
== END 2020-01-27 12:38 | disposition home or self-care (01) | DRG 617 ==
LOC: ER 16:06 → 4TH 22:28 → 2ND 01-26 21:19
PROVIDERS: ADMIT Hospitalist; ATTEND Hospitalist
PROC: 0Y6S0Z2 Detachment at Left 2nd Toe, Mid, Open Approach (ICD-10-PCS; principal; 2020-01-26 17:15)
DX: E11.69 Type 2 diabetes mellitus with other specified complication (principal); M86.8X7 Other osteomyelitis, ankle and foot; I13.0 Hypertensive heart and chronic kidney disease with heart failure and stage 1 through stage 4 chronic kidney disease, or unspecified chronic kidney disease; L03.116 Cellulitis of left lower limb; E11.52 Type 2 diabetes mellitus with diabetic peripheral angiopathy with gangrene; I96 Gangrene, not elsewhere classified; I50.32 Chronic diastolic (congestive) heart failure; E11.621 Type 2 diabetes mellitus with foot ulcer; I25.10 Atherosclerotic heart disease of native coronary artery without angina pectoris; E78.5 Hyperlipidemia, unspecified; E11.40 Type 2 diabetes mellitus with diabetic neuropathy, unspecified; N18.3 Chronic kidney disease, stage 3 (moderate); E11.22 Type 2 diabetes mellitus with diabetic chronic kidney disease; L97.529 Non-pressure chronic ulcer of other part of left foot with unspecified severity; Z20.828 Contact with and (suspected) exposure to other viral communicable diseases; Z88.1 Allergy status to other antibiotic agents; Z79.4 Long term (current) use of insulin; Z95.0 Presence of cardiac pacemaker; Z79.899 Other long term (current) drug therapy; Z87.891 Personal history of nicotine dependence; Z90.49 Acquired absence of other specified parts of digestive tract
CPT/HCPCS: 36415; 80048; 80053; 81003; 81015; 82947; 83036; 83605; 83735; 84100; 84145; 85025; 85652; 87040; 87070; 87077; 87186; 87205; 88305; 88311; 93005; 96374; 97116; 97161; 99285; J1815; J2250; J2405; J2704; J3010; J7030; S0077; U0002

== ENCOUNTER 2020-02-01 04:49 | Emergency (ER) | payer OTHER ==
--- OUTSIDE RECORDS SUMMARY | 2020-02-01 04:53 | XMS REPORT | Continuity of Care Document ---
:1955 Author Organization [facility] t Address [address] [place] [address] Care Team Providers Name Role Phone Unavailable Unavailable Unavailable Payers Payer Name Policy Type Policy Number Effective Date Expiration Date S ource Problems This patient has no known problems. Allergies, Adverse Reactions, Alerts Allergy Allergy Status Severity Reaction(s) Onset Inactive Treating Comm ents Source Name Type Date Date Clinician azithrom DA Active [place] 2018- [facility] 0[facility]22 Clear 00:00: Quintana 00 [facility] azithrom DA Active [place] [facility] 3-27 [facility] 00:00: e 00 [facility] Medications This patient has no known medications. Procedures This patient has no known procedures. Results Test Description Test Time Test Comments Results Result Comments Source GLUBED 2019-06-19 13:30:00 Test Item Value Reference Range Interpretation Comme nts GLUBED (test code = GLUBED) 179 mg/dL 74-106 H Performed by certified pig machine operator at [facility] [id number] 06:14:00 Test Item Value Reference Range Interpretation Comments GLUBED (test code = 139 mg/dL 74-106 H Performe d by certified GLUBED) pig machine operator at [facility] [id number] 04:42:00 Test Item Value Reference Range Interpretation Comments GLUBED (test code = 166 mg/dL 74-106 H Performe d by certified GLUBED) pig machine operator at [facility] [id number] 21:05:00 Test Item Value Reference Range Interpretation Comments GLUBED (test code = 311 mg/dL 74-106 H Performe d by certified GLUBED) pig machine operator at [facility] [id number] 17:31:00 Test Item Value Reference Range Interpretation Comments GLUBED (test code = 200 mg/dL 74-106 H Performe d by certified GLUBED) pig machine operator at [facility] [id number] 12:34:00 Test Item Value Reference Range Interpretation Comments GLUBED (test code = 225 mg/dL 74-106 H Performe d by certified GLUBED) pig machine operator at [facility] BASIC METABOLIC [id number] 07:17:00 Test Item Value Reference Range Interpretation [...] GFR) formula.Chronic kidney disease is defined as [facility] kidney damageor GFR <60 mL/min/1.73 m2 for >3 months. CREATININE (test code 2.80 mg/dL 0.7-1.3 H = CREAT) BUN/CREATININE RATIO 16.4 10-20 N (test code = BUN/CREA) CALCIUM (test code = 8.8 mg/dL 8.5-10.1 N CA) [id number] 05:08:00 Test Item Value Reference Range Interpretation Comments GLUBED (test code = 146 mg/dL 74-106 H Performe d by certified GLUBED) pig machine operator at [facility] BASIC METABOLIC [id number] 03:11:00 Test Item Value Reference Range Interpretation [...] code = 8.7 mg/dL 8.5-10.1 N CA) [id number] 03:11:00 Test Item Value Reference Range Interpretation Comments MAGNESIUM (test code = MAG) 2.0 mg/dL 1.8-2.4 N CBC W/O [id number] 03:02:00 Test Item Value Reference Range Interpretation [...] code 8.8 fL 6.7-11.0 N = MPV) [id number] 21:06:00 Test Item Value Reference Range Interpretation Comments GLUBED (test code = 283 mg/dL 74-106 H Performe d by certified GLUBED) pig machine operator at [facility] [id number] 18:12:00 Test Item Value Reference Range Interpretation Comments GLUBED (test code = 207 mg/dL 74-106 H Performe d by certified GLUBED) pig machine operator at [facility] [id number] 12:02:00 Test Item Value Reference Range Interpretation Comments GLUBED (test code = 220 mg/dL 74-106 H Performe d by certified GLUBED) pig machine operator at [facility] [id number] 06:47:00 Test Item Value Reference Range Interpretation Comments GLUBED (test code 142 mg/dL 74-106 H Performed by certified = GLUBED) [facility]~ [id number] 06:29:00 Test Item Value Reference Range Interpretation Comments GLUBED (test code 212 mg/dL 74-106 H Performed by certified = GLUBED) [facility] BASIC METABOLIC [id number] 02:36:00 Test Item Value Reference Range Interpretation [...] GFR) formula.Chronic kidney disease is defined as [facility] kidney damageor GFR <60 mL/min/1.73 m2 for >3 months. CREATININE (test code 3.00 mg/dL 0.7-1.3 H = CREAT) BUN/CREATININE RATIO 20.3 10-20 H (test code = BUN/CREA) CALCIUM (test code = 8.7 mg/dL 8.5-10.1 N CA) [id number] 02:36:00 Test Item Value Reference Range Interpretation Comments MAGNESIUM (test code = MAG) 2.0 mg/dL 1.8-2.4 N BASIC METABOLIC [id number] 02:21:00 Test Item Value Reference Range Interpretation [...] CALCIUM (test code = CA) mg/dL 8.5-10.1 [id number] 02:21:00 Test Item Value Reference Range Interpretation Comments MAGNESIUM (test code = MAG) mg/dL 1.8-2.4 CBC W/O [id number] 01:44:00 Test Item Value Reference Range Interpretation [...] fL 6.7-11.0 N (test code = MPV) [id number] 17:37:00 Test Item Value Reference Range Interpretation Comments GLUBED (test code = 274 mg/dL 74-106 H Performe d by certified GLUBED) pig machine operator at [facility] [id number] 12:37:00 Test Item Value Reference Range Interpretation Comments GLUBED (test code = 187 mg/dL 74-106 H Performe d by certified GLUBED) pig machine operator at [facility] [id number] 11:42:00 Test Item Value Reference Range Interpretation Comments GLUBED (test code = 188 mg/dL 74-106 H Performe d by certified GLUBED) pig machine operator at [facility] - XR CHEST 1 [id number] 09:18:00 FAX: Reji Hernandez MD [place]: B St: [facility] FAX: Asmita David NP [phone] Name: BERTRAND YU [facility] : 1955 Age/S: 63/M [address] [facility] Unit #: [id number] Loc: V.[address] [place] [address] Phys: Asmita David NP Acct: V [id number] Dis Date: Status: ADM IN PHONE #: [phone] Exam Date: 06/16/2019 0858 FAX #: [phone] Reason: CHF EXAMS: CPT CODE: [id number] XR CHEST 1 V 82721 HISTORY: CHF. COMPARISON: Previous day. Left ICD is unchanged. Mild congestion. Smallbasilar effusions. Dependent changes. Small basilar effusions. Dependent changes. Cardiomegaly. IMPRESSION: Mild congestion is unchanged. at 0918 Reported and signed by: Anjum Helton M.D. CC: Reji Hernandez MD; Asmita David NP Technologist: ALETA MUHAMMAD JR [facility] Date/Time/By: 06/16/2019 (0916) :By: [email or web address] Orig Print D/T: S: 06/16/2019 (0635) PAGE 1 Signed ReportBASIC METABOLIC [id number] 08:56:00 Test Item Value Reference Range Interpretation [...] code = 8.5 mg/dL 8.5-10.1 N CA) [id number] 08:56:00 Test Item Value Reference Range Interpretation Comments MAGNESIUM (test code = MAG) 2.1 mg/dL 1.8-2.4 N CBC W/AUTO [id number] 08:44:00 Test Item Value Reference Range Interpretation [...] code = 0.00 K/mm3 0.0-0.1 N NRBC#) [id number] 08:27:00 Test Item Value Reference Range Interpretation Comments GLYCOSYLATED HEMOGLOBIN (HA1C) 9.7 % HbA1 4.8-6.0 H (test code = GLYHGB) ESTIMATED AVERAGE GLUCOSE (test 232 MG/DL code = EAG) [id number] 06:14:00 Test Item Value Reference Range Interpretation Comments GLUBED (test code = 134 mg/dL 74-106 H Performe d by certified GLUBED) pig machine operator at [facility] [id number] 04:22:00 Test Item Value Reference Range Interpretation Comments GLUBED (test code = 146 mg/dL 74-106 H Performe d by certified GLUBED) pig machine operator at [facility] [id number] 21:25:00 Test Item Value Reference Range Interpretation Comments GLUBED (test code = 179 mg/dL 74-106 H Performe d by certified GLUBED) pig machine operator at [facility] UR MICROALBUMIN/CREAT [id number] 17:08:00 Test Item Value Reference Range Interpretation [...] - 300.0 Clinical albuminuria: >300.0Performed At: [facility] [address] [place], [place] [id number] Preston Reynolds MD [phone] [id number] 16:47:00 Test Item Value Reference Range Interpretation Comments GLUBED (test code = 173 mg/dL 74-106 H Performe d by certified GLUBED) pig machine operator at [facility] [id number] 10:07:00 Test Item Value Reference Range Interpretation Comments GLUBED (test code = 151 mg/dL 74-106 H Performe d by certified GLUBED) pig machine operator at [facility] [id number] 07:12:00 Test Item Value Reference Range Interpretation Comments TROPONIN-I (test code = TROPI) 2.350 ng/mL 0-0.045 COMMENTS TO CORRECTION OFFICER REFORMATORY: COLLECT 3 HOURS AFTER PREVIOUS SAMPLE- XR CHEST 1 [id number] 06:25:00 FAX: Piter Collins [phone] [place]: B St: ADM FAX: Reji Hernandez IMD Name: BERTRAND YU [facility] : 1955 Age/S: 63/M [address] Unit #: [id number] Loc: V.S06 [place] [address] Phys: Piter Collins Acct: V [id number] Dis Date: Status: ADM IN PHONE #: [phone] Exam Date: 06/15/2019510 FAX #: [phone] Reason: updatedpulm view EXAMS: CPT CODE: [id number] XR CHEST 1 V 91565 CLINICAL HISTORY: Respiratory failure, CHF TECHNIQUE: AP [...] ount the patients h istory. COMPREHENSIVE METABOLIC [id number] 06:07:00 Test Item Value Reference Range Interpretation [...] range due ALKP) to change in reagent. [id number] 06:07:00 Test Item Value Reference Range Interpretation Comments MAGNESIUM (test code = MAG) 2.2 mg/dL 1.8-2.4 N [id number] 05:29:00 Test Item Value Reference Range Interpretation Comments GLUBED (test code = 180 mg/dL 74-106 H Performe d by certified GLUBED) pig machine operator at [facility] CBC W/AUTO [id number] 05:09:00 Test Item Value Reference Range Interpretation [...] code = 0.00 K/mm3 0.0-0.1 N NRBC#) [id number] 21:16:00 Test Item Value Reference Range Interpretation Comments GLUBED (test code = 186 mg/dL 74-106 H Performe d by certified GLUBED) pig machine operator at [facility] [id number] 16:21:00 Test Item Value Reference Range Interpretation Comments GLUBED (test code = 229 mg/dL 74-106 H Performe d by certified GLUBED) pig machine operator at [facility] UR SMEAR EOSINOPHIL [id number] 16:03:00 Test Item Value Reference Range Interpretation Comments UR SMEAR EOSINOPHIL COUNT NONE SEEN per HPF NONE SEEN (test code = EOSCTU) UR NA,[id number] 16:03:00 Test Item Value Reference Range Interpretation Comments UR NA,RANDOM (test code = NOEMÍ) 113 mmol/L 20-110 H UR CHLORIDE [id number] 16:03:00 Test Item Value Reference Range Interpretation Comments UR CHLORIDE RANDOM (test code = 118 mEq/L CLU) UR PROTEIN/CREATININE [id number] 16:03:00 Test Item Value Reference Range Interpretation [...] (test code = P/CRATIO) UR SMEAR EOSINOPHIL [id number] 15:08:00 Test Item Value Reference Range Interpretation Comments UR SMEAR EOSINOPHIL COUNT (test code per HPF NONE SEEN = EOSCTU) UR NA,[id number] 15:08:00 Test Item Value Reference Range Interpretation Comments UR NA,RANDOM (test code = NOEMÍ) 113 mmol/L 20-110 H UR CHLORIDE [id number] 15:08:00 Test Item Value Reference Range Interpretation Comments UR CHLORIDE RANDOM (test code = 118 mEq/L CLU) UR PROTEIN/CREATININE [id number] 15:08:00 Test Item Value Reference Range Interpretation [...] (test code = P/CRATIO) UR SMEAR EOSINOPHIL [id number] 14:58:00 Test Item Value Reference Range Interpretation Comments UR SMEAR EOSINOPHIL COUNT (test code per HPF NONE SEEN = EOSCTU) UR NA,[id number] 14:58:00 Test Item Value Reference Range Interpretation Comments UR NA,RANDOM (test code = NOEMÍ) 113 mmol/L 20-110 H UR CHLORIDE [id number] 14:58:00 Test Item Value Reference Range Interpretation Comments UR CHLORIDE RANDOM (test code = 118 mEq/L CLU) UR PROTEIN/CREATININE [id number] 14:58:00 Test Item Value Reference Range Interpretation Comments UR PROTEIN RANDOM (test code = PROTU) mg/dL 0.0-11.9 UR CREATININE RANDOM (test code = mg/dL 30-125 CREATU) PROTEIN/CREATININE RATIO (test code = RATIO 0.0-0.20 P/CRATIO) [id number] 13:09:00 Test Item Value Reference Range Interpretation Comments GLUBED (test code = 214 mg/dL 74-106 H Performe d by certified GLUBED) pig machine operator at [facility] URINALYSIS [id number] 11:40:00 Test Item Value Reference Range Interpretation [...] 0-5 code = HYALU) Urine Source? Clean [id number] 11:38:00 Test Item Value Reference Range Interpretation Comments GLUBED (test code = 203 mg/dL 74-106 H Performe d by certified GLUBED) pig machine operator at [facility] URINALYSIS [id number] 11:35:00 Test Item Value Reference Range Interpretation [...] per HPF NONE BACU) Urine Source? Clean [id number] 07:40:00 Test Item Value Reference Range Interpretation Comments TROPONIN-I (test code = TROPI) 1.380 ng/mL 0-0.045 SPECIMEN COMMENTS: 0200 LAB- XR CHEST 1 [id number] 07:30:00 FAX: Piter Collins [phone] [place]: B St: FAX: Reji Hernandez Name: BERTRAND YU [facility] : 1955 Age/S: 63/M [address] [facility] Unit #: [id number] Loc: [place]6 [place] [address] Phys: Piter Collins Acct: V [id number] Dis Date: Status: ADM IN PHONE #: [phone] Exam Date: 06/14/2019 0649 FAX #: [phone] Reason: updatedpulm view. EXAMS: CPT CODE: [id number] XR CHEST 1 V 30838 CLINICAL HISTORY: Respiratory failure, CHF TECHNIQUE: AP chest x-ray COMPARISON: Previous day. IMPRESSION: Improved patchy bilateral airspace opacification or pulmonary congestion. Small bilateral pleural effusions. Cardiomegaly. AICD/biv entricular pacer. LOCATION: at 0730 Reported and signed by: Eliz Ocampo D.O. CC: Piter Collins; Reji Hernandez MD Technologist: Chanell Anderson(R) Trnscrd Date/Time/By: 06/14/2019 (07) : By: [email or web address] Orig Print D/T: S: 06/14/2019 (0745) PAGE 1 Signed ReportBASIC METABOLIC [id number] 03:27:00 Test Item Value Reference Range Interpretation [...] CALCIUM (test code = CA) mg/dL 8.5-10.1 [id number] 03:27:00 Test Item Value Reference Range Interpretation Comments MAGNESIUM (test code = MAG) mg/dL 1.8-2.4 BASIC METABOLIC [id number] 03:27:00 Test Item Value Reference Range Interpretation [...] GFR) formula.Chronic kidney disease is defined as [facility] kidney damageor GFR <60 mL/min/1.73 m2 for >3 months. CREATININE (test code 2.70 mg/dL 0.7-1.3 H = CREAT) BUN/CREATININE RATIO 18.8 10-20 N (test code = BUN/CREA) CALCIUM (test code = 7.3 mg/dL 8.5-10.1 L CA) [id number] 03:27:00 Test Item Value Reference Range Interpretation Comments MAGNESIUM (test code = MAG) 2.0 mg/dL 1.8-2.4 N CBC W/O [id number] 03:06:00 Test Item Value Reference Range Interpretation [...] code 8.8 fL 6.7-11.0 N = MPV) [id number] 00:03:00 Test Item Value Reference Range Interpretation Comments TROPONIN-I (test 1.480 ng/mL 0-0.045 HH RESULT VERI FIED BY code = TROPI) REPEAT ANALYSI S COMMENTS TO CORRECTION OFFICER REFORMATORY: COLLECT 3 HOURS AFTER PREVIOUS SAMPLE- US RETRO [id number] 18:28:00 Name: BERTRAND YU [facility] : 1955 Age/S: 63 / M [address] Unit #: [id number] Loc: [place] [address] Phys: Reji Hernandez MD Acct: [id number] Dis Date: Status: ADM IN PHONE #: [phone] Exam Date: 06/13/2019 1703 FAX #: [phone] Reason: ckd EXAMS: CPTCODE: [id number] US RETRO LTD 11095 REASON FOR EXAM: ckd EXAM ORDER DATE: [...] Left kidney is within normal limits. Location: [facility] at 1828 Reported and signed by: Yoandy Calero MD PAGE 1 Signed Report (CONTINUED) Name: BERTRAND YU [facility] : 1955 Age/S: 63 / M [address] [place] Unit #: [id number] Loc: [place] [address] Phys: Reji Hernandez MD Acct: [id number] Dis Date: Status: ADM IN PHONE #: [phone] Exam Date: 06/13/2019 1703 FAX #: [phone] Reason: ckd EXAMS: CPT CODE: [id number] [facility] [address] <Continued> CC: Krystina Kowalski MD; Reji Hernandez MD T echnologist: Ladi Ruiz RDMS Trnscb Date/Time: 06/13/2019 (1827) [email or web address] Orig Print D/T: S: 06/13/2019 (183) Probe: PAGE 2 Signed Report PROTHROMBIN [id number] 14:57:00 Test Item Value Reference Range Interpretation [...] (2.5-3.5) IS PATIENT ON ANTICOAGULANTS? NTHROMBOPLASTIN TIME [id number] 14:57:00 Test Item Value Reference Range Interpretation Comments THROMBOPLASTIN TIME PARTIAL 47.3 seconds 25.0-36.5 H (test code = PTT) IS PATIENT ON ANTICOAGULANTS? [id number] 14:57:00 Test Item Value Reference Range Interpretation Comments D-DIMER (test 03977.00 0-500 HH RESULT VERIFIE D BY REPEAT [...] - IS PATIENT ON ANTICOAGULANTS? NB-TYPE NATRIURETIC [id number] 14:38:00 Test Item Value Reference Range Interpretation Comments B-TYPE NATRIURETIC PEPTIDE 1317.60 pgram/mL 0-100 H (test code = BNP) BASIC METABOLIC [id number] 14:36:00 Test Item Value Reference Range Interpretation [...] 8.6 mg/dL 8.5-10.1 N CA) HEPATIC FUNCTION [id number] 14:36:00 Test Item Value Reference Range Interpretation [...] code = 105 IUnit/L 26-208 N CK) [id number] 14:36:00 Test Item Value Reference Range Interpretation Comments LIPASE (test code = LIP) 241 U/L 73.0-393.0 N [id number] 14:36:00 Test Item Value Reference Range Interpretation Comments MAGNESIUM (test code = MAG) 2.3 mg/dL 1.8-2.4 N [id number] 14:36:00 Test Item Value Reference Range Interpretation Comments TROPONIN-I (test 1.890 ng/mL 0-0.045 HH Results ilda led to code = TROPI) [id number] by Azeem NOE 06/13/19 1433Cr itical results verifie d and read back by Nu rse? Y LACTIC [id number] 14:27:00 Test Item Value Reference Range Interpretation Comments LACTIC ACID (test code = LACT) 0.9 mmol/L 0.4-1.9 N BASIC METABOLIC [id number] 14:16:00 Test Item Value Reference Range Interpretation [...] code = CA) mg/dL 8.5-10.1 HEPATIC FUNCTION [id number] 14:16:00 Test Item Value Reference Range Interpretation [...] (CK) (test code = IUnit/L 26-208 CK) [id number] 14:16:00 Test Item Value Reference Range Interpretation Comments LIPASE (test code = LIP) U/L 73.0-393.0 [id number] 14:16:00 Test Item Value Reference Range Interpretation Comments MAGNESIUM (test code = MAG) mg/dL 1.8-2.4 [id number] 14:16:00 Test Item Value Reference Range Interpretation Comments TROPONIN-I (test code = TROPI) ng/mL 0-0.045 CBC W/AUTO [id number] 14:10:00 Test Item Value Reference Range Interpretation [...] 0.0-0.1 N NRBC#) - XR CHEST 1 [id number] 14:01:00 FAX: Krystina Banda [phone] [place]: St: PRE Name: BERTRAND YU [facility] : 1955 Age/S: 63/M [address] [facility] Unit#: [id number] Loc: [place] [address] Phys: Krystina Kwoalski MD Acct: [id number] Dis Date: Status: PRE ER PHONE #: [phone] Exam Date: 06/13/2019 1350 FAX #: [phone] Reason: SHORTNESS OF BREATH EXAMS: CPT CODE: [id number] XR CHEST 1 V 59994 HISTORY: Shortness of breath. COMPARISON: None available. Left ICD with the leads in the right atrium and right ventricle patchy right infiltrate. Left basal infiltrate as well. Dependent changes. No effusion. Cardiomegaly. IMPRESSION: Patchy bilateral infiltrates, greater on the right. at 1401 Reported and signed by: Anjum Helton M.D. CC: Krystina Kowalski MD Technologist: PINKY KONG RT(R) Trnscrd Date/Time/By: 06/13/2019 (4044) : By: [email or web address] Orig Print D/T: S: 06/13/2019 (5269) PAGE 1 Signed ReportARTERIAL BLOOD [id number] 13:59:00 Test Item Value Reference Range Interpretation [...]
[2020-02-01 05:21] LABS: Absolute Lymphocytes (CBC) 1.5 K/uL (0.7-4.9); Basophils % 0.2 % (0-1.3); Hematocrit 28.5 % (39.6-49.0); Lymphocytes % 11.3 % (15.3-44.8); MPV 6.7 fL (7.6-11.3); RBC Red Blood Cell Count 3.26 M/uL (4.33-5.43)
[2020-02-01 05:40] LABS: Potassium 3.5 mmol/L (3.5-5.1)
--- NOTE | 2020-02-01 06:47 | ER ---
Nurse's Notes [facility] Name: Jarod Kraft Age: 64 yrs Sex: Male : 1955 Arrival Date: 02/01/2020 Time: 04:52 Bed 7 Private MD: Diagnosis: Hypoglycemia, unspecified;Chronic kidney disease (CKD) Presentation: 01/31 04:53 Chief complaint: EMS states: PATIENT'S BLOOD SUGAR IS 46 AT HOME. GIVEN 250 ML OF rv DEXTROSE 10 IV. PATIENT IS ALERT AND ORIENTED UPON ARRIVAL TO ER. Coronavirus screen: Proceed with normal triage. Ebola Screen: No symptoms or risks identified at this time. Initial Sepsis Screen: Does the patient meet any 2 criteria? No. Patient's initial sepsis screen is negative. Does the patient have a suspected source of infection? No. Patient's initial sepsis screen is negative. Risk Assessment: Do you want to hurt yourself or someone else? Patient reports no desire to harm self or others. Onset of symptoms is unknown. 04:53 Method Of Arrival: EMS: [facility] rv 04:53 Acuity: ASAF 3 rv Triage Assessment: 04:56 General: Appears comfortable, Behavior is calm, cooperative. Pain: Denies pain. EENT: rv No signs and/or symptoms were reported regarding the EENT system. Neuro: Level of Consciousness is awake, alert, obeys commands, Oriented to person, place, situation. Cardiovascular: Patient's skin is warm and dry. Respiratory: Airway is patent Respiratory effort is even, unlabored, Breath sounds are clear bilaterally. Derm: Skin with poor turgor. Historical: - Allergies: 04:56 Erythromycin; rv - PMHx: 04:56 CHF; Diabetes - IDDM; Hypertension; Irregular heart rate; rv - PSHx: 04:56 Unable to obtain; rv - Immunization history:: Adult Immunizations up to date. - Social history:: Smoking status: Patient denies any tobacco usage or history of. - Family history:: not pertinent. - Hospitalizations: : The patient was recently seen at [facility]. Screenin:57 Abuse screen: Denies threats or abuse. Denies injuries from another. Nutritional rv screening: No deficits noted. Tuberculosis screening: No symptoms or risk factors identified. Fall Risk None identified. Assessment: 05:00 General: Appears in no apparent distress. 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 Pain: Denies pain. Neuro: Level of Consciousness is awake, alert, obeys commands, Oriented to person, place, situation. Cardiovascular: Patient's skin is warm and dry. Respiratory: Airway is patent Respiratory effort is even, unlabored, Respiratory pattern is regular, symmetrical. GI: No signs and/or symptoms were reported involving the gastrointestinal system. : No signs and/or symptoms were reported regarding the genitourinary system. EENT: No signs and/or symptoms were reported regarding the EENT system. Derm: Skin is intact, Skin is pink, warm \T\ dry. Musculoskeletal: Circulation, motion, and sensation intact. Range of motion: intact in all extremities. 06:00 Reassessment: Patient appears in no apparent distress at this time. Patient and/or jb4 family updated on plan of care and expected duration. Pain level reassessed. Patient is alert, oriented x 3, equal unlabored respirations, skin warm/dry/pink. Vital Signs: 04:53 BP 118 / 70; Pulse 71; Resp 16; Temp 97; Pulse Ox 96% on 2 lpm NC; Weight 116.12 kg; rv Pain 0/10; 05:45 BP 123 / 77; Pulse 73; Resp 16; Pulse Ox 96% on R/A; jb4 07:25 BP 118 / 76; Pulse 68; Resp 18; Temp 97.4; Pulse Ox 97% on R/A; ph ED Course: 04:52 Patient arrived in ED. rv 04:53 Oswald Alex MD is Attending Physician. rn 04:53 Thompson Willis RN is Primary Nurse. rv 04:55 Triage completed. rv 04:56 Arm band placed on Patient placed in the treatment room, on a stretcher, Patient rv notified of wait time. 04:57 Patient has correct armband on for positive identification. Pulse ox on. NIBP on. rv 05:03 Maintain EMS IV. Dressing intact. Good blood return noted. Site clean \T\ dry. Gauge \T\ rv site: G20 LEFT HAND. 05:03 Initial lab(s) drawn, by me, sent to lab. rv 05:21 XRAY Chest (1 view) In Process Unspecified. EDMS 07:26 No provider procedures requiring assistance completed. IV discontinued, intact, ph bleeding controlled, No redness/swelling at site. Pressure dressing applied. Administered Medications: No medications were administered Point of Care Testing: Blood Glucose: 04:58 Blood Glucose: 112 mg/dL; rv Ranges: Outcome: 06:46 Discharge ordered by . rn 07:26 Discharged to home via wheelchair, with family. ph 07:26 Condition: good 07:26 Discharge instructions given to patient, Instructed on discharge instructions, follow up and referral plans. Demonstrated understanding of instructions, follow-up care. 07:27 Patient left the ED. ph Signatures: Dispatcher [employer] EDMA Oswald Alex MD MD rn Hall, Patricia, RN RN ph Maynor Luke, RN RN jb4 Thompson Willis RN RN rv
--- NOTE | 2020-02-01 06:47 | EDPHYS ---
Physician Documentation [facility] Name: Jarod Kraft Age: 64 yrs Sex: Male : 1955 Arrival Date: 02/01/2020 Time: 04:52 Bed 7 Private MD: ED Physician Oswald Alex HPI: 01/31 05:00 This 64 yrs old Male presents to ER via EMS with complaints of low blood sugar.rn 05:00 The patient or guardian reports hypoglycemia. Onset: The symptoms/episode rn began/occurred today. Current symptoms: In the emergency department the patient's symptoms have improved. The patient has experienced similar episodes in the past. Per EMS, 911 called by family for AMS, s/p recent toe amputation this last week at this hospital, patient states glucose sometimes high and "sometimes low". Jay snot recall last dose of insulin or if he ate prior to going to sleep. Denies pain. Glucose low 40s for EMS, glucose infusion given with some improvement of symptoms. Denies head injury/chest pain/sob/abd pain/vomiting. . Historical: - Allergies: 04:56 Erythromycin; rv - PMHx: 04:56 CHF; Diabetes - IDDM; Hypertension; Irregular heart rate; rv - PSHx: 04:56 Unable to obtain; rv - Immunization history:: Adult Immunizations up to date. - Social history:: Smoking status: Patient denies any tobacco usage or history of. - Family history:: not pertinent. - Hospitalizations: : The patient was recently seen at [facility]. ROS: 05:00 Constitutional: Negative for fever, chills, and weight loss, Eyes: Negative for injury, rn pain, redness, and discharge, Neck: Negative for injury, pain, and swelling, Cardiovascular: Negative for chest pain, palpitations, and edema, Respiratory: Negative for shortness of breath, cough, wheezing, and pleuritic chest pain, Abdomen/GI: Negative for abdominal pain, nausea, vomiting, diarrhea, and constipation, MS/Extremity: Negative for injury and deformity, Neuro: Negative for headache, weakness, numbness, tingling, and seizure. Exam: 05:00 Constitutional: This is a well developed, well nourished patient who is awake, alert, rn and in no acute distress. Head/Face: Normocephalic, atraumatic. ENT: MMM Cardiovascular: Regular rate and rhythm. No pulse deficits. Respiratory: No increased work of breathing, no retractions or nasal flaring. Abdomen/GI: Soft, non-tender MS/ Extremity: No cyanosis. Surgical wound c/d/i Neuro: Awake and alert, GCS 15, oriented to person, place, and situation. 05:23 ECG was reviewed by the Attending Physician. rn Vital Signs: 04:53 BP 118 / 70; Pulse 71; Resp 16; Temp 97; Pulse Ox 96% on 2 lpm NC; Weight 116.12 kg; rv Pain 0/10; 05:45 BP 123 / 77; Pulse 73; Resp 16; Pulse Ox 96% on R/A; jb4 07:25 BP 118 / 76; Pulse 68; Resp 18; Temp 97.4; Pulse Ox 97% on R/A; ph MDM: 04:53 Patient medically screened. rn 06:01 ED course: Pt improved after eating sandwich, able to stand and walk on own. . rn 06:14 Differential diagnosis: hypoglycemic episode. 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 Test interpretation: by ED physician or midlevel provider: ECG, plain radiologic studies, CXR neg for acute infiltrate. Counseling: I had a detailed discussion with the patient and/or guardian regarding: the historical points, exam findings, and any diagnostic results supporting the discharge/admit diagnosis, lab results, radiology results, the need for outpatient follow up, to return to the emergency department if symptoms worsen or persist or if there are any questions or concerns that arise at home. Response to treatment: the patient's symptoms have markedly improved after treatment, the patient's condition has returned to base line, the patient is now symptom free, and as a result, I will discharge patient. ED course: Ate sandwich, glucose 80, back to baseline, states low blood sugar has "happened many times". States doesn't tend to eat bedtime snack to ensure stable overnight glucose. Will cont to observe in ER, and dc if next glucose wnl. . 06:45 ED course: repeat glucose steady at 98, will dc home, instructed to eat regularly and rn small meals throughout day as well as bedtime snack to keep glucose steady, return precautions given, recommend pcp f/u. . 01/31 04:56 Order name: CBC with Diff; Complete Time: 05:42 rn 01/31 04:56 Order name: Basic Metabolic Panel; Complete Time: 05:42 rn 01/31 04:56 Order name: XRAY Chest (1 view) 01/31 04:56 Order name: EKG; Complete Time: 04:57 rn 01/31 06:25 Order name: Glucose, Ancillary Testing [facility] 01/31 06:56 Order name: Glucose, Ancillary Testing [facility] 01/31 04:56 Order name: IV Start; Complete Time: 05:03 rn 01/31 04:56 Order name: Glucose Level; Complete Time: 04:58 rn 01/31 04:56 Order name: EKG - Nurse/Tech; Complete Time: 05:03 rn 01/31 05:03 Order name: PO challenge; Complete Time: 05:05 rn EC:23 Rate is 73 beats/min. Rhythm is regular. PA interval is normal. QRS interval is rn prolonged. T waves are Normal. No ST changes noted. Clinical impression: Ventricular pacemaker. Interpreted by me. Reviewed by me. Administered Medications: No medications were administered Point of Care Testing: Blood Glucose: 04:58 Blood Glucose: 112 mg/dL; rv Ranges: Critical Glucose Levels:Adult <50 mg/dl or >400 mg/dl <40 mg/dl or >180 mg/dl Disposition: 02/01/20 06:46 Discharged to Home. Impression: Hypoglycemia, unspecified, Chronic kidney disease (CKD). - Condition is Stable. - Discharge Instructions: Hypoglycemia, Blood Glucose Monitoring, Adult, Chronic Kidney Disease, Adult. - Medication Reconciliation Form, Thank You Letter, Antibiotic Education, Prescription Opioid Use form. - Follow up: Private Physician; When: 2 - 3 days; Reason: Recheck today's complaints, Re-evaluation by your physician. - Problem is new. - Symptoms have improved. Signatures: Dispatcher [employer] EDMS Oswald Alex MD MD rn Hall, Patricia, RN RN ph Vicente, Ronaldo, RN RN rv Corrections: (The following items were deleted from the chart) 05:06 05:00 Constitutional: This is a well developed, well nourished patient who is awake, rn alert, and in no acute distress. Head/Face: Normocephalic, atraumatic. ENT: MMM rn 06:47 06:46 02/01/2020 06:46 Discharged to Home. Impression: Hypoglycemia, unspecified. rn Condition is Stable. Discharge Instructions: Hypoglycemia, Blood Glucose Monitoring, Adult, Chronic Kidney Disease, Adult. Forms are Medication Reconciliation Form, Thank You Letter, Antibiotic Education, Prescription Opioid Use. Follow up: Private Physician; When: 2 - 3 days; Reason: Recheck today's complaints, Re-evaluation by your physician. Problem is new. Symptoms have improved. rn 07:27 06:47 02/01/2020 06:46 Discharged to Home. Impression: Hypoglycemia, unspecified; ph Chronic kidney disease (CKD). Condition is Stable. Discharge Instructions: Hypoglycemia, Blood Glucose Monitoring, Adult, Chronic Kidney Disease, Adult. Forms are Medication Reconciliation Form, Thank You Letter, Antibiotic Education, Prescription Opioid Use. Follow up: Private Physician; When: 2 - 3 days; Reason: Recheck today's complaints, Re-evaluation by your physician. Problem is new. Symptoms have improved. rn
--- NOTE | 2020-02-01 07:15 | EKG ---
Test Date: 2020-02-01 Test Time: 05:05:09 Esthetician Facialist: TT MEASUREMENT RESULTS: Intervals: Rate: 73 CA: 108 QRSD: 172 QT: 530 QTc: 583 [place]: P: 34 CA: 108 QRS: -72 T: 101 INTERPRETIVE STATEMENTS: Electronic ventricular pacemaker Compared to ECG 01/25/2020 19:24:40 No significant changes Electronically Signed On 02-01-20 07:15:04 CDT by Shreyas Corbin
[2020-02-01 07:38] VITALS: BP 118/76; TEMP 97.4; O2SAT 97
--- NOTE | 2020-02-01 07:40 | RAD REPORT ---
EXAM DESCRIPTION: RAD - Chest Single View - 02/01/2020 5:21 am CLINICAL HISTORY: hypoglycemia, recent admission COMPARISON: June 2019 chest film, August 2019 CT chest TECHNIQUE: AP portable chest image was obtained 02/01/2020 5:21 am . FINDINGS: Interstitial markings are prominent in the right lung field with decreased overall from th e prior study. No right-sided focal mass or consolidation. Defibrillator is in place. Cardiomegaly is present. Vasculature is prominent but less pronounced than seen on the prior study. Retrocardiac left base assessment is limited. No dense consolidation in the left lung field. Left loculated pleural effusion is again noted. Trachea is midline. No pneumothorax . No acute bony abnormality seen. No acute aortic findings suspected. IMPRESSION: Mild CHF/volume overload suspected. Loculated left base pleural effusion again noted.
== END 2020-02-01 07:27 | disposition home or self-care (01) ==
LOC: ER 04:49
DX: E11.649 Type 2 diabetes mellitus with hypoglycemia without coma (principal); E11.22 Type 2 diabetes mellitus with diabetic chronic kidney disease; I12.9 Hypertensive chronic kidney disease with stage 1 through stage 4 chronic kidney disease, or unspecified chronic kidney disease; N18.9 Chronic kidney disease, unspecified; I50.9 Heart failure, unspecified; Z79.4 Long term (current) use of insulin; Z88.1 Allergy status to other antibiotic agents
CPT/HCPCS: 36415; 71045; 80048; 82947; 85025; 93005; 99284

== ENCOUNTER 2020-02-22 17:07 | Emergency (ER) | payer OTHER ==
--- NOTE | 2020-02-22 20:22 | EDPHYS ---
Physician Documentation [facility] Name: Jarod Kraft Age: 64 yrs Sex: Male : 1955 Arrival Date: 02/22/2020 Time: 17:09 Bed 14 Private MD: ED Physician Tim Martel Historical: - Allergies: 02/21 17:25 Erythromycin; jl7 - Home Meds: 17:25 Xarelto 20 mg Oral tab 1 tab once daily [Active]; jl7 - PMHx: 17:25 CHF; Diabetes - IDDM; Hypertension; Irregular heart rate; Pacemaker; High Cholesterol; jl7 - PSHx: 17:25 Cholecystectomy; jl7 - Immunization history:: Adult Immunizations up to date. - Social history:: Smoking status: Patient denies any tobacco usage or history of. Vital Signs: 17:18 BP 118 / 61; Pulse 68; Resp 17 S; Temp 98.9(O); Pulse Ox 94% on R/A; Pain 0/10; jl7 19:22 BP 129 / 69; Pulse 67; Resp 18; Temp 98.9(O); Pulse Ox 98% on R/A; Pain 0/10; eb1 21:36 BP 128 / 69; Pulse 76; Resp 20; Temp 97.1; Pulse Ox 96% ; Pain 0/10; eb1 MDM: 20:21 Patient medically screened. tw4 02/21 19:30 Order name: Glucose, Ancillary Testing; Complete Time: 22:12 EDNV 02/21 20:07 Order name: Basic Metabolic Panel; Complete Time: 22:12 eb 02/21 22:15 Interpretation: Normal except: GFR 16; CRE 3.78; BUN 75; GLUC 144; CO2 19; CL 115. tw4 02/21 20:07 Order name: CBC with Diff; Complete Time: 22:12 eb 02/21 22:15 Interpretation: Normal except: HGB 8.2; HCT 26.4; RBC 2.86; MCV 92.4; MCHC 31.2; MPV tw4 7.1; RDW 21.4. 02/21 20:07 Order name: Magnesium; Complete Time: 22:12 eb1 02/21 22:16 Interpretation: Within normal limits: MG 2.4. tw4 02/21 20:07 Order name: NT PRO-BNP; Complete Time: 22:12 [facility] 02/21 22:15 Interpretation: Normal except: NT PRO-BNP [id number]. [facility] 02/21 20:07 Order name: PT-INR; Complete Time: 22:12 1 02/21 22:15 Interpretation: Normal except: PT 13.8. [facility] 02/21 20:07 Order name: Troponin (emerg Dept Use Only); Complete Time: 22:12 [facility] 02/21 22:15 Interpretation: Normal except: TROPED 0.09. [facility] 02/21 20:22 Order name: Liver (Hepatic) Function; Complete Time: 22:12 EDMS 02/21 22:15 Interpretation: Normal except: ALK 127; ALB 2.5; GLOB 4.3; A/G 0.6. [facility] 02/21 20:22 Order name: Lipase; Complete Time: 22:12 EDNV 02/21 20:51 Order name: Manual Differential; Complete Time: 22:12 EDNV 02/21 22:16 Interpretation: Normal except: BANDS [F] 6; EOS 4; BASOS 2. [facility] 02/21 19:19 Order name: IV Saline Lock; Complete Time: 20:12 [facility] 02/21 19:19 Order name: Labs collected and sent; Complete Time: 20:12 [facility] 02/21 20:07 Order name: XRAY Chest (1 view); Complete Time: 22:12 [facility] 02/21 22:17 Interpretation: No acute disease except. 02/21 20:07 Order name: EKG; Complete Time: 20:07 [facility] 02/21 20:07 Order name: Cardiac monitoring; Complete Time: 21:57 [facility] 02/21 20:07 Order name: EKG - Nurse/Tech; Complete Time: 21:57 [facility] 02/21 20:07 Order name: O2 Per Protocol; Complete Time: 22:01 [facility] 02/21 20:07 Order name: O2 Sat Monitoring; Complete Time: 20:51 eb1 Administered Medications: No medications were administered Disposition: 02/22/20 22:23 Discharged to Home. Impression: Anemia in chronic diseases classified elsewhere, Chronic kidney disease, stage 3 (moderate). - Condition is Stable. - Discharge Instructions: Anemia, Nonspecific, Chronic Kidney Disease, Adult, [id number]. - Medication Reconciliation Form, Thank You Letter, Antibiotic Education, Prescription Opioid Use form. - Follow up: Kimo Mckeon MD; When: Upon discharge from the Emergency Department; Reason: Recheck today's complaints, Continuance of care, Re-evaluation by your physician. - Problem is an ongoing problem. - Symptoms are unchanged. Signatures: Dispatcher [employer] [facility] Avila Corea RN RN jl7 Tim Martel MD MD tw4 Mariak Baumann RN RN eb1 Corrections: (The following items were deleted from the chart) 20:21 19:20 BASIC METABOLIC PANEL+C.LAB.BRZ ordered. [facility] 20:21 19:20 HEPATIC FUNCTION+C.LAB.BRZ ordered. [facility] 20:21 19:20 LIPASE+C.LAB.BRZ ordered. [facility] 20:22 20:21 02/22/2020 20:21 Discharged to Home. Impression: Fracture of sternal end of tw4 clavicle. Condition is Stable. Forms are Medication Reconciliation Form, Thank You Letter, Antibiotic Education, Prescription Opioid Use. Follow up: Private Physician; When: Upon discharge from the Emergency Department; Reason: Recheck today's complaints, Continuance of care, Re-evaluation by your physician. Problem is new. Symptoms have improved. tw4 20:22 20:22 02/22/2020 20:21 Discharged to Home. Impression: Fracture of sternal end of tw4 clavicle. Condition is Stable. Forms are Medication Reconciliation Form, Thank You Letter, Antibiotic Education, Prescription Opioid Use. Follow up: Private Physician; When: Upon discharge from the Emergency Department; Reason: Recheck today's complaints, Continuance of care, Re-evaluation by your physician. Follow up: Michael Fregoso; When: Upon discharge from the Emergency Department; Reason: Recheck today's complaints, Continuance of care, Re-evaluation by your physician. Follow up: Arslan Reyes; When: Upon discharge from the Emergency Department; Reason: Recheck today's complaints, Continuance of care, Re-evaluation by your physician. Problem is new. Symptoms have improved. [facility] 22:31 19:20 CBC+H.LAB.BRZ ordered. [facility] 23:09 22:23 02/22/2020 22:23 Discharged to Home. Impression: Anemia in chronic diseases eb1 classified elsewhere; Chronic kidney disease, stage 3 (moderate). Condition is Stable. Forms are Medication Reconciliation Form, Thank You Letter, Antibiotic Education, Prescription Opioid Use. Follow up: Kimo Mckeon; When: Upon discharge from the Emergency Department; Reason: Recheck today's complaints, Continuance of care, Re-evaluation by your physician. Problem is an ongoing problem. Symptoms are unchanged. tw4
--- NOTE | 2020-02-22 20:22 | ER ---
Nurse's Notes [facility] Name: Jarod Kraft Age: 64 yrs Sex: Male : 1955 Arrival Date: 02/22/2020 Time: 17:09 Bed 14 Private MD: Diagnosis: Anemia in chronic diseases classified elsewhere;Chronic kidney disease, stage 3 (moderate) Presentation: 02/21 17:18 Chief complaint: Patient's son or daughter states: [facility] told us to come in [facility] because his hgb is low, maybe 8. The order was put in from Dr. Mckeon. Pt reports mild fatigue but denies any other symptoms, denies N/V/D, denies bloody stools, denies black tarry stools. Coronavirus screen: Proceed with normal triage. Patient denies a cough. Patient denies shortness of breath or difficulty breathing. Patient denies measured and/or subjective temperature greater than 100.4F prior to today's visit. Patient denies travel on a cruise ship or to a country the [facility] currently lists as an affected area. Patient denies contact with known and/or suspected case of COVID-19. Ebola Screen: No symptoms or risks identified at this time. Initial Sepsis Screen: Does the patient meet any 2 criteria? No. Patient's initial sepsis screen is negative. Does the patient have a suspected source of infection? No. Patient's initial sepsis screen is negative. Risk Assessment: Do you want to hurt yourself or someone else? Patient reports no desire to harm self or others. Onset of symptoms is unknown. Care prior to arrival: None. 17:18 Method Of Arrival: Wheelchair [facility] 17:18 Acuity: ASAF 3 Historical: - Allergies: 17:25 Erythromycin; - Home Meds: 17:25 Xarelto 20 mg Oral tab 1 tab once daily [Active]; - PMHx: 17:25 CHF; Diabetes - IDDM; Hypertension; Irregular heart rate; Pacemaker; High Cholesterol; - PSHx: 17:25 Cholecystectomy; jl - Immunization history:: Adult Immunizations up to date. - Social history:: Smoking status: Patient denies any tobacco usage or history of. Screenin:35 Abuse screen: Denies threats or abuse. Denies injuries from another. Nutritional eb1 screening: No deficits noted. Tuberculosis screening: No symptoms or risk factors identified. Fall Risk None identified. Assessment: 19:22 General: Appears in no apparent distress. comfortable, well groomed, Behavior is calm, eb1 cooperative, appropriate for age. Pain: Denies pain. Neuro: No deficits noted. Cardiovascular: No deficits noted. Respiratory: No deficits noted. GI: No deficits noted. No signs and/or symptoms were reported involving the gastrointestinal system. : No deficits noted. No signs and/or symptoms were reported regarding the genitourinary system. EENT: No deficits noted. No signs and/or symptoms were reported regarding the EENT system. Derm: No deficits noted. No signs and/or symptoms reported regarding the dermatologic system. Musculoskeletal: No deficits noted. No signs and/or symptoms reported regarding the musculoskeletal system. 20:59 Reassessment: [phone] Mele Elaine. ca1 21:35 Reassessment: Patient appears in no apparent distress at this time. No changes from eb1 previously documented assessment. Patient and/or family updated on plan of care and expected duration. Pain level reassessed. Vital Signs: 17:18 BP 118 / 61; Pulse 68; Resp 17 S; Temp 98.9(O); Pulse Ox 94% on R/A; Pain 0/10; jl7 19:22 BP 129 / 69; Pulse 67; Resp 18; Temp 98.9(O); Pulse Ox 98% on R/A; Pain 0/10; eb1 21:36 BP 128 / 69; Pulse 76; Resp 20; Temp 97.1; Pulse Ox 96% ; Pain 0/10; eb1 ED Course: 17:09 Patient arrived in ED. ag5 17:23 Triage completed. jl7 17:25 Arm band placed on right wrist. jl7 19:10 Tim Martel MD is Attending Physician. tw4 20:12 Basic Metabolic Panel Sent. eb1 20:12 CBC with Diff Sent. eb1 20:12 Magnesium Sent. eb1 20:12 NT PRO-BNP Sent. eb1 20:12 PT-INR Sent. eb1 20:12 Troponin (emerg Dept Use Only) Sent. eb1 20:22 Michael Fregoso MD is Referral Physician. tw4 20:22 Arslan Reyes MD is Referral Physician. tw4 20:32 XRAY Chest (1 view) In Process Unspecified. EDMS 22:23 Kimo Mckeon MD is Referral Physician. tw4 22:36 Patient has correct armband on for positive identification. Bed in low position. Call eb1 light in reach. Side rails up X2. 22:36 No provider procedures requiring assistance completed. IV discontinued, intact, eb1 bleeding controlled, No redness/swelling at site. Administered Medications: No medications were administered Outcome: 20:21 Discharge ordered by . tw4 22:23 Discharge ordered by MD. tw4 23:09 Discharged to home via wheelchair. eb1 23:09 Condition: good 23:09 Discharge instructions given to patient, Demonstrated understanding of instructions, follow-up care. 23:09 Patient left the ED. eb1 Signatures: Dispatcher [employer] Avila Fajardo RN RN jl7 Tim Martel MD MD tw4 Marika Baumann RN RN [facility] Joanna Rodriguez RN RN [facility] Sonia Redmond 5 Corrections: (The following items were deleted from the chart) 20:21 20:12 HEPATIC FUNCTION+C.LAB.BRZ drawn and sent. eb1 EDMS 20:21 20:12 LIPASE+C.LAB.BRZ drawn and sent. eb1 EDMS 20:21 20:12 BASIC METABOLIC PANEL+C.LAB.BRZ drawn and sent. eb1 EDMS 22:31 20:12 CBC+H.LAB.BRZ drawn and sent. eb EDMS
[2020-02-22 20:41] LABS: Absolute Lymphocytes (CBC) 1.6 K/uL (0.7-4.9); Basophils % 0.8 % (0-1.3); Hematocrit 26.4 % (39.6-49.0); Lymphocytes % 18.7 % (15.3-44.8); MPV 7.1 fL (7.6-11.3); RBC Red Blood Cell Count 2.86 M/uL (4.33-5.43)
--- NOTE | 2020-02-22 20:50 | RAD REPORT ---
EXAM DESCRIPTION: RAD - Chest Single View - 02/22/2020 8:31 pm CLINICAL HISTORY: abnormal test Chest pain. COMPARISON: <Comparisons> FINDINGS: Portable technique limits examination quality. Mild interstitial pulmonary edema noted. The heart is enlarged with multilead pacer/defibrillator dev ice present. No displaced fractures. IMPRESSION: Mild CHF
[2020-02-22 20:53] LABS: Albumin 2.5 g/dL (3.4-5.0); Bilirubin Direct 0.1 mg/dL (0-0.2); Bilirubin Total 0.4 mg/dL (0.2-1.0); Magnesium 2.4 mg/dL (1.8-2.4); Potassium 4.2 mmol/L (3.5-5.1); Protein, Total 6.8 g/dL (6.4-8.2); Troponin (Emerg Dept Use Only) 0.09 ng/mL (0.0-0.045)
[2020-02-22 21:05] LABS: Protime INR 1.17
--- OUTSIDE RECORDS SUMMARY | 2020-02-22 21:11 | XMS REPORT | Continuity of Care Document ---
:1955 Author Organization [facility] t Address [address] [place] [address] Dr. Fuller [address] [place] [address] Care Team Providers Name Role Phone Unavailable Unavailable Unavailable Payers Payer Name Policy Type Policy Number Effective Date Expiration Date S ource Problems This patient has no known problems. Allergies, Adverse Reactions, Alerts Allergy Allergy Status Severity Reaction(s) Onset Inactive Treating Comm ents Source Name Type Date Date Clinician azithrom DA Active [place] 2018- [facility] 0-22 Clear 00:00: Quintana 00 [facility] [place]ithrom [place] [facility] 3-27 [facility] 00:00: e 00 [facility] Medications This patient has no known medications. Procedures This patient has no known procedures. Results Test Description Test Time Test Comments Results Result Comments Source GLUBED 2019-06-19 13:30:00 Test Item Value Reference Range Interpretation Comme nts GLUBED (test code = GLUBED) 179 mg/dL 74-106 H Performed by certified graining machine operator at [facility] [id number] 06:14:00 Test Item Value Reference Range Interpretation Comments GLUBED (test code = 139 mg/dL 74-106 H Performe d by certified GLUBED) graining machine operator at [facility] [id number] 04:42:00 Test Item Value Reference Range Interpretation Comments GLUBED (test code = 166 mg/dL 74-106 H Performe d by certified GLUBED) graining machine operator at [facility] [id number] 21:05:00 Test Item Value Reference Range Interpretation Comments GLUBED (test code = 311 mg/dL 74-106 H Performe d by certified GLUBED) graining machine operator at [facility] [id number] 17:31:00 Test Item Value Reference Range Interpretation Comments GLUBED (test code = 200 mg/dL 74-106 H Performe d by certified GLUBED) graining machine operator at [facility] [id number] 12:34:00 Test Item Value Reference Range Interpretation Comments GLUBED (test code = 225 mg/dL 74-106 H Performe d by certified GLUBED) graining machine operator at [facility] BASIC METABOLIC [id number] 07:17:00 Test Item Value Reference Range Interpretation [...] GFR) formula.Chronic kidney disease is defined as [facility] kidney damageor GFR <60 mL/min/1.73 m2 for >3 months. CREATININE (test code 2.80 mg/dL 0.7-1.3 H = CREAT) BUN/CREATININE RATIO 16.4 10-20 N (test code = BUN/CREA) CALCIUM (test code = 8.8 mg/dL 8.5-10.1 N CA) [id number] 05:08:00 Test Item Value Reference Range Interpretation Comments GLUBED (test code = 146 mg/dL 74-106 H Performe d by certified GLUBED) graining machine operator at [facility] BASIC METABOLIC [id number] 03:11:00 Test Item Value Reference Range Interpretation [...] code = 8.7 mg/dL 8.5-10.1 N CA) [id number] 03:11:00 Test Item Value Reference Range Interpretation Comments MAGNESIUM (test code = MAG) 2.0 mg/dL 1.8-2.4 N CBC W/O [id number] 03:02:00 Test Item Value Reference Range Interpretation [...] code 8.8 fL 6.7-11.0 N = MPV) [id number] 21:06:00 Test Item Value Reference Range Interpretation Comments GLUBED (test code = 283 mg/dL 74-106 H Performe d by certified GLUBED) graining machine operator at [facility] [id number] 18:12:00 Test Item Value Reference Range Interpretation Comments GLUBED (test code = 207 mg/dL 74-106 H Performe d by certified GLUBED) graining machine operator at [facility] [id number] 12:02:00 Test Item Value Reference Range Interpretation Comments GLUBED (test code = 220 mg/dL 74-106 H Performe d by certified GLUBED) graining machine operator at [facility] [id number] 06:47:00 Test Item Value Reference Range Interpretation Comments GLUBED (test code 142 mg/dL 74-106 H Performed by certified = GLUBED) [facility]~ [id number] 06:29:00 Test Item Value Reference Range Interpretation Comments GLUBED (test code 212 mg/dL 74-106 H Performed by certified = GLUBED) [facility] BASIC METABOLIC [id number] 02:36:00 Test Item Value Reference Range Interpretation [...] GFR) formula.Chronic kidney disease is defined as [facility] kidney damageor GFR <60 mL/min/1.73 m2 for >3 months. CREATININE (test code 3.00 mg/dL 0.7-1.3 H = CREAT) BUN/CREATININE RATIO 20.3 10-20 H (test code = BUN/CREA) CALCIUM (test code = 8.7 mg/dL 8.5-10.1 N CA) [id number] 02:36:00 Test Item Value Reference Range Interpretation Comments MAGNESIUM (test code = MAG) 2.0 mg/dL 1.8-2.4 N BASIC METABOLIC [id number] 02:21:00 Test Item Value Reference Range Interpretation [...] CALCIUM (test code = CA) mg/dL 8.5-10.1 [id number] 02:21:00 Test Item Value Reference Range Interpretation Comments MAGNESIUM (test code = MAG) mg/dL 1.8-2.4 CBC W/O [id number] 01:44:00 Test Item Value Reference Range Interpretation [...] fL 6.7-11.0 N (test code = MPV) [id number] 17:37:00 Test Item Value Reference Range Interpretation Comments GLUBED (test code = 274 mg/dL 74-106 H Performe d by certified GLUBED) graining machine operator at [facility] [id number] 12:37:00 Test Item Value Reference Range Interpretation Comments GLUBED (test code = 187 mg/dL 74-106 H Performe d by certified GLUBED) graining machine operator at [facility] [id number] 11:42:00 Test Item Value Reference Range Interpretation Comments GLUBED (test code = 188 mg/dL 74-106 H Performe d by certified GLUBED) graining machine operator at [facility] - XR CHEST 1 [id number] 09:18:00 FAX: Reji Hernandez MD [place]: B St: [facility] FAX: Asmita David NP [phone] Name: BERTRAND YU [facility] : 1955 Age/S: 63/M [address] [facility] Unit #: [id number] Loc: V.2058 [place] [address] Phys: Asmita David NP Acct: V [id number] Dis Date: Status: ADM IN PHONE #: [phone] Exam Date: 06/16/2019 0858 FAX #: [phone] Reason: CHF EXAMS: CPT CODE: [id number] XR CHEST 1 V 93600 HISTORY: CHF. COMPARISON: Previous day. Left ICD is unchanged. Mild congestion. Smallbasilar effusions. Dependent changes. Small basilar effusions. Dependent changes. Cardiomegaly. IMPRESSION: Mild congestion is unchanged. at 0918 Reported and signed by: Anjum Helton M.D. CC: Reji Hernandez MD; Asmita David NP Technologist: ALETA MUHAMMAD JR [facility] Date/Time/By: 06/16/2019 (0918) :By: [email or web address] Orig Print D/T: S: 06/16/2019 (5020) PAGE 1 Signed ReportBASIC METABOLIC [id number] 08:56:00 Test Item Value Reference Range Interpretation [...] code = 8.5 mg/dL 8.5-10.1 N CA) [id number] 08:56:00 Test Item Value Reference Range Interpretation Comments MAGNESIUM (test code = MAG) 2.1 mg/dL 1.8-2.4 N CBC W/AUTO [id number] 08:44:00 Test Item Value Reference Range Interpretation [...] code = 0.00 K/mm3 0.0-0.1 N NRBC#) [id number] 08:27:00 Test Item Value Reference Range Interpretation Comments GLYCOSYLATED HEMOGLOBIN (HA1C) 9.7 % HbA1 4.8-6.0 H (test code = GLYHGB) ESTIMATED AVERAGE GLUCOSE (test 232 MG/DL code = EAG) [id number] 06:14:00 Test Item Value Reference Range Interpretation Comments GLUBED (test code = 134 mg/dL 74-106 H Performe d by certified GLUBED) graining machine operator at [facility] [id number] 04:22:00 Test Item Value Reference Range Interpretation Comments GLUBED (test code = 146 mg/dL 74-106 H Performe d by certified GLUBED) graining machine operator at [facility] [id number] 21:25:00 Test Item Value Reference Range Interpretation Comments GLUBED (test code = 179 mg/dL 74-106 H Performe d by certified GLUBED) graining machine operator at [facility] UR MICROALBUMIN/CREAT [id number] 17:08:00 Test Item Value Reference Range Interpretation [...] - 300.0 Clinical albuminuria: >300.0Performed At: [facility] [address] [place], [place] [id number] Preston Reynolds MD [phone] [id number] 16:47:00 Test Item Value Reference Range Interpretation Comments GLUBED (test code = 173 mg/dL 74-106 H Performe d by certified GLUBED) graining machine operator at [facility] [id number] 10:07:00 Test Item Value Reference Range Interpretation Comments GLUBED (test code = 151 mg/dL 74-106 H Performe d by certified GLUBED) graining machine operator at [facility] [id number] 07:12:00 Test Item Value Reference Range Interpretation Comments TROPONIN-I (test code = TROPI) 2.350 ng/mL 0-0.045 COMMENTS TO COUNTY RECORDS MANAGEMENT OFFICER: COLLECT 3 HOURS AFTER PREVIOUS SAMPLE- XR CHEST 1 [id number] 06:25:00 FAX: Piter Collins [phone] [place]: B St: ADM FAX: Reji Hernandez IMD Name: BERTRAND YU [facility] : 1955 Age/S: 63/M [address] [facility] Unit #: [id number] Loc: V.S06 [place] [address] Phys: Piter Collins Acct: V [id number] Dis Date: Status: ADM IN PHONE #: [phone] Exam Date: 06/15/2019510 FAX #: [phone] Reason: updatedpulm view EXAMS: CPT CODE: [id number] XR CHEST 1 V 00515 CLINICAL HISTORY: Respiratory failure, CHF TECHNIQUE: AP chest x-ray COMPARISON: Previous day. IMPRESSION: Slightly worse bilateral airspace opacification and small pleural effusions. Cardiomegaly. AICD/biventricular pacer. LOCATION: at 0625 Reported and signed by: Eliz Ocampo D.O. CC: Piter Collins; Reji Hernandez MD Technologist: ALETA Bryan Trnscrd Date/Time/By: 06/15/2019 (06) : By: [email or web address] Orig Print D/T: S: 06/15/2019 (28) PAGE 1 Signed ReportPROCALCITONIN (PCT)2019-06-15 06:18:00 Test [...] ount the patients h istory. COMPREHENSIVE METABOLIC [id number] 06:07:00 Test Item Value Reference Range Interpretation [...] MDRD formula.Chronic kidney disease is defined as [facility] kidney damageor GFR <60 mL/min/1.73 m2 [...] range due ALKP) to change in reagent. [id number] 06:07:00 Test Item Value Reference Range Interpretation Comments MAGNESIUM (test code = MAG) 2.2 mg/dL 1.8-2.4 N [id number] 05:29:00 Test Item Value Reference Range Interpretation Comments GLUBED (test code = 180 mg/dL 74-106 H Performe d by certified GLUBED) graining machine operator at [facility] CBC W/AUTO [id number] 05:09:00 Test Item Value Reference Range Interpretation [...] code = 0.00 K/mm3 0.0-0.1 N NRBC#) [id number] 21:16:00 Test Item Value Reference Range Interpretation Comments GLUBED (test code = 186 mg/dL 74-106 H Performe d by certified GLUBED) graining machine operator at [facility] [id number] 16:21:00 Test Item Value Reference Range Interpretation Comments GLUBED (test code = 229 mg/dL 74-106 H Performe d by certified GLUBED) graining machine operator at [facility] UR SMEAR EOSINOPHIL [id number] 16:03:00 Test Item Value Reference Range Interpretation Comments UR SMEAR EOSINOPHIL COUNT NONE SEEN per HPF NONE SEEN (test code = EOSCTU) UR NA,[id number] 16:03:00 Test Item Value Reference Range Interpretation Comments UR NA,RANDOM (test code = NOEMÍ) 113 mmol/L 20-110 H UR CHLORIDE [id number] 16:03:00 Test Item Value Reference Range Interpretation Comments UR CHLORIDE RANDOM (test code = 118 mEq/L CLU) UR PROTEIN/CREATININE [id number] 16:03:00 Test Item Value Reference Range Interpretation [...] (test code = P/CRATIO) UR SMEAR EOSINOPHIL [id number] 15:08:00 Test Item Value Reference Range Interpretation Comments UR SMEAR EOSINOPHIL COUNT (test code per HPF NONE SEEN = EOSCTU) UR NA,[id number] 15:08:00 Test Item Value Reference Range Interpretation Comments UR NA,RANDOM (test code = NOEMÍ) 113 mmol/L 20-110 H UR CHLORIDE [id number] 15:08:00 Test Item Value Reference Range Interpretation Comments UR CHLORIDE RANDOM (test code = 118 mEq/L CLU) UR PROTEIN/CREATININE [id number] 15:08:00 Test Item Value Reference Range Interpretation [...] (test code = P/CRATIO) UR SMEAR EOSINOPHIL [id number] 14:58:00 Test Item Value Reference Range Interpretation Comments UR SMEAR EOSINOPHIL COUNT (test code per HPF NONE SEEN = EOSCTU) UR NA,[id number] 14:58:00 Test Item Value Reference Range Interpretation Comments UR NA,RANDOM (test code = NOEMÍ) 113 mmol/L 20-110 H UR CHLORIDE [id number] 14:58:00 Test Item Value Reference Range Interpretation Comments UR CHLORIDE RANDOM (test code = 118 mEq/L CLU) UR PROTEIN/CREATININE [id number] 14:58:00 Test Item Value Reference Range Interpretation Comments UR PROTEIN RANDOM (test code = PROTU) mg/dL 0.0-11.9 UR CREATININE RANDOM (test code = mg/dL 30-125 CREATU) PROTEIN/CREATININE RATIO (test code = RATIO 0.0-0.20 P/CRATIO) [id number] 13:09:00 Test Item Value Reference Range Interpretation Comments GLUBED (test code = 214 mg/dL 74-106 H Performe d by certified GLUBED) graining machine operator at [facility] URINALYSIS [id number] 11:40:00 Test Item Value Reference Range Interpretation [...] 0-5 code = HYALU) Urine Source? Clean [id number] 11:38:00 Test Item Value Reference Range Interpretation Comments GLUBED (test code = 203 mg/dL 74-106 H Performe d by certified GLUBED) graining machine operator at [facility] URINALYSIS [id number] 11:35:00 Test Item Value Reference Range Interpretation [...] per HPF NONE BACU) Urine Source? Clean [id number] 07:40:00 Test Item Value Reference Range Interpretation Comments TROPONIN-I (test code = TROPI) 1.380 ng/mL 0-0.045 SPECIMEN COMMENTS: 0200 LAB- XR CHEST 1 [id number] 07:30:00 FAX: Piter Collins [phone] [place]: B St: ADM FAX: Reji Hernandez Name: BERTRAND YU [facility] : 1955 Age/S: 63/M [address] [facility] Unit #: [id number] Loc: VSvetlanaS06 [place] [address] Phys: Piter Collins Acct: V [id number] Dis Date: Status: ADM IN PHONE #: [phone] Exam Date: 06/14/2019 0649 FAX #: [phone] Reason: updatedpulm view. EXAMS: CPT CODE: [id number] XR CHEST 1 V 75067 CLINICAL HISTORY: Respiratory failure, CHF TECHNIQUE: AP chest x-ray COMPARISON: Previous day. IMPRESSION: Improved patchy bilateral airspace opacification or pulmonary congestion. Small bilateral pleural effusions. Cardiomegaly. AICD/biv entricular pacer. LOCATION: at 0730 Reported and signed by: Eliz Ocampo D.O. CC: Piter Collins; Reji Hernandez MD Technologist: Chanell Anderson(R) Trnscrd Date/Time/By: 06/14/2019 (0798) : By: [email or web address] Orig Print D/T: S: 06/14/2019 (0674) PAGE 1 Signed ReportBASIC METABOLIC [id number] 03:27:00 Test Item Value Reference Range Interpretation [...] CALCIUM (test code = CA) mg/dL 8.5-10.1 [id number] 03:27:00 Test Item Value Reference Range Interpretation Comments MAGNESIUM (test code = MAG) mg/dL 1.8-2.4 BASIC METABOLIC [id number] 03:27:00 Test Item Value Reference Range Interpretation [...] GFR) formula.Chronic kidney disease is defined as [facility] kidney damageor GFR <60 mL/min/1.73 m2 for >3 months. CREATININE (test code 2.70 mg/dL 0.7-1.3 H = CREAT) BUN/CREATININE RATIO 18.8 10-20 N (test code = BUN/CREA) CALCIUM (test code = 7.3 mg/dL 8.5-10.1 L CA) [id number] 03:27:00 Test Item Value Reference Range Interpretation Comments MAGNESIUM (test code = MAG) 2.0 mg/dL 1.8-2.4 N CBC W/O [id number] 03:06:00 Test Item Value Reference Range Interpretation [...] code 8.8 fL 6.7-11.0 N = MPV) [id number] 00:03:00 Test Item Value Reference Range Interpretation Comments TROPONIN-I (test 1.480 ng/mL 0-0.045 HH RESULT VERI FIED BY code = TROPI) REPEAT ANALYSI S COMMENTS TO COUNTY RECORDS MANAGEMENT OFFICER: COLLECT 3 HOURS AFTER PREVIOUS SAMPLE- US RETRO [id number] 18:28:00 Name: BERTRAND YU [facility] : 1955 Age/S: 63 / M [address] Unit #: [id number] Loc: [place] [address] Phys: Reji Hernandez MD Acct: [id number] Dis Date: Status: ADM IN PHONE #: [phone] Exam Date: 06/13/2019 1703 FAX #: [phone] Reason: ckd EXAMS: CPTCODE: [id number] US RETRO LTD [address] REASON FOR EXAM: ckd EXAM ORDER DATE: [...] Left kidney is within normal limits. Location: [facility] at 1828 Reported and signed by: Yoandy Calero MD PAGE 1 Signed Report (CONTINUED) Name: BERTRAND YU [facility] : 1955 Age/S: 63 / M [address] Unit #: [id number] Loc: [place] [address] Phys: Reji Hernandez MD Acct: [id number] Dis Date: Status: ADM IN PHONE #: [phone] Exam Date: 06/13/2019 1703 FAX #: [phone] Reason: ckd EXAMS: CPT CODE: [id number] [facility] [address] <Continued> CC: Krystina Kowalski MD; Reji Hernandez MD T echnologist: Ladi Ruiz RDMS Trnscb Date/Time: 06/13/2019 (1827) [email or web address] Orig Print D/T: S: 06/13/2019 (183) Probe: PAGE 2 Signed Report PROTHROMBIN [id number] 14:57:00 Test Item Value Reference Range Interpretation [...] (2.5-3.5) IS PATIENT ON ANTICOAGULANTS? NTHROMBOPLASTIN TIME [id number] 14:57:00 Test Item Value Reference Range Interpretation Comments THROMBOPLASTIN TIME PARTIAL 47.3 seconds 25.0-36.5 H (test code = PTT) IS PATIENT ON ANTICOAGULANTS? [id number] 14:57:00 Test Item Value Reference Range Interpretation Comments D-DIMER (test 55671.00 0-500 HH RESULT VERIFIE D BY REPEAT [...] - IS PATIENT ON ANTICOAGULANTS? NB-TYPE NATRIURETIC [id number] 14:38:00 Test Item Value Reference Range Interpretation Comments B-TYPE NATRIURETIC PEPTIDE 1317.60 pgram/mL 0-100 H (test code = BNP) BASIC METABOLIC [id number] 14:36:00 Test Item Value Reference Range Interpretation [...] 8.6 mg/dL 8.5-10.1 N CA) HEPATIC FUNCTION [id number] 14:36:00 Test Item Value Reference Range Interpretation [...] code = 105 IUnit/L 26-208 N CK) [id number] 14:36:00 Test Item Value Reference Range Interpretation Comments LIPASE (test code = LIP) 241 U/L 73.0-393.0 N [id number] 14:36:00 Test Item Value Reference Range Interpretation Comments MAGNESIUM (test code = MAG) 2.3 mg/dL 1.8-2.4 N [id number] 14:36:00 Test Item Value Reference Range Interpretation Comments TROPONIN-I (test 1.890 ng/mL 0-0.045 HH Results ilda led to code = TROPI) [id number] by Azeem NOE 06/13/19 1433Cr itical results verifie d and read back by Angie rse? Y LACTIC [id number] 14:27:00 Test Item Value Reference Range Interpretation Comments LACTIC ACID (test code = LACT) 0.9 mmol/L 0.4-1.9 N BASIC METABOLIC [id number] 14:16:00 Test Item Value Reference Range Interpretation [...] CREAT) mg/dL 0.7-1.3 BUN/CREATININE RATIO (test code 10 = BUN/CREA) CALCIUM (test code = CA) mg/dL 8.5-10.1 HEPATIC FUNCTION [id number] 14:16:00 Test Item Value Reference Range Interpretation [...] (CK) (test code = IUnit/L 26-208 CK) [id number] 14:16:00 Test Item Value Reference Range Interpretation Comments LIPASE (test code = LIP) U/L 73.0-393.0 [id number] 14:16:00 Test Item Value Reference Range Interpretation Comments MAGNESIUM (test code = MAG) mg/dL 1.8-2.4 [id number] 14:16:00 Test Item Value Reference Range Interpretation Comments TROPONIN-I (test code = TROPI) ng/mL 0-0.045 CBC W/AUTO [id number] 14:10:00 Test Item Value Reference Range Interpretation [...] 0.0-0.1 N NRBC#) - XR CHEST 1 [id number] 14:01:00 FAX: Krystina Banda [phone] [place]: St: PRE Name: BERTRAND YU [facility] : 1955 Age/S: 63/M [address] [facility] Unit#: [id number] Loc: [place] [address] Phys: Krystina Kowalski MD Acct: [id number] Dis Date: Status: PRE ER PHONE #: [phone] Exam Date: 06/13/2019 1350 FAX #: [phone] Reason: SHORTNESS OF BREATH EXAMS: CPT CODE: [id number] XR CHEST 1 V 11590 HISTORY: Shortness of breath. COMPARISON: None available. Left ICD with the leads in the right atrium and right ventricle patchy right infiltrate. Left basal infiltrate as well. Dependent changes. No effusion. Cardiomegaly. IMPRESSION: Patchy bilateral infiltrates, greater on the right. at 1401 Reported and signed by: Anjum Helton M.D. CC: Krystina Kowalski MD Technologist: PINKY KONG RT(R) Trnscrd Date/Time/By: 06/13/2019 (9190) : By: [email or web address] Orig Print D/T: S: 06/13/2019 (1645) PAGE 1 Signed ReportARTERIAL BLOOD [id number] 13:59:00 Test Item Value Reference Range Interpretation [...]
[2020-02-22 21:29] LABS: Blood Morphology Comment NOTED (NOT SEEN)
[2020-02-22 21:30] LABS: Anisocytosis 1+; Burr Cells 1+; Platelet Estimate ADEQ; Polychromasia 1+
[2020-02-22 23:24] VITALS: BP 128/69; TEMP 97.1; O2SAT 96
--- NOTE | 2020-02-24 08:59 | EKG ---
Test Date: 2020-02-22 Test Time: 21:45:20 Computer Peripheral Equipment Operator: NIKKI MEASUREMENT RESULTS: Intervals: Rate: 67 RI: 114 QRSD: 154 QT: 478 QTc: 505 [place]: P: 25 RI: 114 QRS: -90 T: 104 INTERPRETIVE STATEMENTS: Electronic ventricular pacemaker Compared to ECG 02/01/2020 05:05:09 No significant changes Electronically Signed On 02-24-20 08:55:38 CDT by Shreyas Corbin
== END 2020-02-22 23:09 | disposition home or self-care (01) ==
LOC: ER 17:07
DX: N18.3 Chronic kidney disease, stage 3 (moderate) (principal); E11.22 Type 2 diabetes mellitus with diabetic chronic kidney disease; D63.1 Anemia in chronic kidney disease; Z88.3 Allergy status to other anti-infective agents
CPT/HCPCS: 36415; 71045; 80048; 80076; 82947; 83690; 83735; 83880; 84484; 85025; 85610; 93005; 99283

== ENCOUNTER 2020-03-21 21:16 | Inpatient (IN) | payer OTHER ==
--- OUTSIDE RECORDS SUMMARY | 2020-03-21 21:20 | XMS REPORT | Continuity of Care Document ---
:1955 Author Organization [facility] t Address [address] [place] [address] Care Team Providers Name Role Phone Unavailable Unavailable Unavailable Payers Payer Name Policy Type Policy Number Effective Date Expiration Date S ource Problems This patient has no known problems. Allergies, Adverse Reactions, Alerts Allergy Allergy Status Severity Reaction(s) Onset Inactive Treating Comm ents Source Name Type Date Date Clinician azithrom DA Active [place] 2018- [facility] 0-22 Clear 00:00: Quintana 00 [facility] azithrom DA Active [place] [facility] 3-27 [facility] 00:00: e 00 [facility] Medications This patient has no known medications. Procedures This patient has no known procedures. Results Test Description Test Time Test Comments Results Result Comments Source GLUBED 2019-06-19 13:30:00 Test Item Value Reference Range Interpretation Comme nts GLUBED (test code = GLUBED) 179 mg/dL 74-106 H Performed by certified coke crane operator at [facility] [id number] 06:14:00 Test Item Value Reference Range Interpretation Comments GLUBED (test code = 139 mg/dL 74-106 H Performe d by certified GLUBED) coke crane operator at [facility] [id number] 04:42:00 Test Item Value Reference Range Interpretation Comments GLUBED (test code = 166 mg/dL 74-106 H Performe d by certified GLUBED) coke crane operator at [facility] [id number] 21:05:00 Test Item Value Reference Range Interpretation Comments GLUBED (test code = 311 mg/dL 74-106 H Performe d by certified GLUBED) coke crane operator at [facility] [id number] 17:31:00 Test Item Value Reference Range Interpretation Comments GLUBED (test code = 200 mg/dL 74-106 H Performe d by certified GLUBED) coke crane operator at [facility] [id number] 12:34:00 Test Item Value Reference Range Interpretation Comments GLUBED (test code = 225 mg/dL 74-106 H Performe d by certified GLUBED) coke crane operator at [facility] BASIC METABOLIC [id number] 07:17:00 Test Item Value Reference Range Interpretation [...] GFR) formula.Chronic kidney disease is defined as [facility] kidney damageor GFR <60 mL/min/1.73 m2 for >3 months. CREATININE (test code 2.80 mg/dL 0.7-1.3 H = CREAT) BUN/CREATININE RATIO 16.4 10-20 N (test code = BUN/CREA) CALCIUM (test code = 8.8 mg/dL 8.5-10.1 N CA) [id number] 05:08:00 Test Item Value Reference Range Interpretation Comments GLUBED (test code = 146 mg/dL 74-106 H Performe d by certified GLUBED) coke crane operator at [facility] BASIC METABOLIC [id number] 03:11:00 Test Item Value Reference Range Interpretation [...] code = 8.7 mg/dL 8.5-10.1 N CA) [id number] 03:11:00 Test Item Value Reference Range Interpretation Comments MAGNESIUM (test code = MAG) 2.0 mg/dL 1.8-2.4 N CBC W/O [id number] 03:02:00 Test Item Value Reference Range Interpretation [...] code 8.8 fL 6.7-11.0 N = MPV) [id number] 21:06:00 Test Item Value Reference Range Interpretation Comments GLUBED (test code = 283 mg/dL 74-106 H Performe d by certified GLUBED) coke crane operator at [facility] [id number] 18:12:00 Test Item Value Reference Range Interpretation Comments GLUBED (test code = 207 mg/dL 74-106 H Performe d by certified GLUBED) coke crane operator at [facility] [id number] 12:02:00 Test Item Value Reference Range Interpretation Comments GLUBED (test code = 220 mg/dL 74-106 H Performe d by certified GLUBED) coke crane operator at [facility] [id number] 06:47:00 Test Item Value Reference Range Interpretation Comments GLUBED (test code 142 mg/dL 74-106 H Performed by certified = GLUBED) [facility]~ [id number] 06:29:00 Test Item Value Reference Range Interpretation Comments GLUBED (test code 212 mg/dL 74-106 H Performed by certified = GLUBED) [facility] BASIC METABOLIC [id number] 02:36:00 Test Item Value Reference Range Interpretation [...] GFR) formula.Chronic kidney disease is defined as [facility] kidney damageor GFR <60 mL/min/1.73 m2 for >3 months. CREATININE (test code 3.00 mg/dL 0.7-1.3 H = CREAT) BUN/CREATININE RATIO 20.3 10-20 H (test code = BUN/CREA) CALCIUM (test code = 8.7 mg/dL 8.5-10.1 N CA) [id number] 02:36:00 Test Item Value Reference Range Interpretation Comments MAGNESIUM (test code = MAG) 2.0 mg/dL 1.8-2.4 N BASIC METABOLIC [id number] 02:21:00 Test Item Value Reference Range Interpretation [...] CALCIUM (test code = CA) mg/dL 8.5-10.1 [id number] 02:21:00 Test Item Value Reference Range Interpretation Comments MAGNESIUM (test code = MAG) mg/dL 1.8-2.4 CBC W/O [id number] 01:44:00 Test Item Value Reference Range Interpretation [...] fL 6.7-11.0 N (test code = MPV) [id number] 17:37:00 Test Item Value Reference Range Interpretation Comments GLUBED (test code = 274 mg/dL 74-106 H Performe d by certified GLUBED) coke crane operator at [facility] [id number] 12:37:00 Test Item Value Reference Range Interpretation Comments GLUBED (test code = 187 mg/dL 74-106 H Performe d by certified GLUBED) coke crane operator at [facility] [id number] 11:42:00 Test Item Value Reference Range Interpretation Comments GLUBED (test code = 188 mg/dL 74-106 H Performe d by certified GLUBED) coke crane operator at [facility] - XR CHEST 1 [id number] 09:18:00 FAX: Reji Hernandez MD [place]: B St: [facility] FAX: Asmita David NP [phone] Name: BERTRAND YU [facility] : 1955 Age/S: 63/M [address] [facility] Unit #: [id number] Loc: V.[address] [place] [address] Phys: Asmita David NP Acct: V [id number] Dis Date: Status: ADM IN PHONE #: [phone] Exam Date: 06/16/2019 0858 FAX #: [phone] Reason: CHF EXAMS: CPT CODE: [id number] XR CHEST 1 V 52940 HISTORY: CHF. COMPARISON: Previous day. Left ICD is unchanged. Mild congestion. Smallbasilar effusions. Dependent changes. Small basilar effusions. Dependent changes. Cardiomegaly. IMPRESSION: Mild congestion is unchanged. at 0918 Reported and signed by: Anjum Helton M.D. CC: Reji Hernandez MD; Asmita David NP Technologist: ALETA MUHAMMAD JR [facility] Date/Time/By: 06/16/2019 (0904) :By: [email or web address] Orig Print D/T: S: 06/16/2019 (8926) PAGE 1 Signed ReportBASIC METABOLIC [id number] 08:56:00 Test Item Value Reference Range Interpretation [...] code = 8.5 mg/dL 8.5-10.1 N CA) [id number] 08:56:00 Test Item Value Reference Range Interpretation Comments MAGNESIUM (test code = MAG) 2.1 mg/dL 1.8-2.4 N CBC W/AUTO [id number] 08:44:00 Test Item Value Reference Range Interpretation [...] code = 0.00 K/mm3 0.0-0.1 N NRBC#) [id number] 08:27:00 Test Item Value Reference Range Interpretation Comments GLYCOSYLATED HEMOGLOBIN (HA1C) 9.7 % HbA1 4.8-6.0 H (test code = GLYHGB) ESTIMATED AVERAGE GLUCOSE (test 232 MG/DL code = EAG) [id number] 06:14:00 Test Item Value Reference Range Interpretation Comments GLUBED (test code = 134 mg/dL 74-106 H Performe d by certified GLUBED) coke crane operator at [facility] [id number] 04:22:00 Test Item Value Reference Range Interpretation Comments GLUBED (test code = 146 mg/dL 74-106 H Performe d by certified GLUBED) coke crane operator at [facility] [id number] 21:25:00 Test Item Value Reference Range Interpretation Comments GLUBED (test code = 179 mg/dL 74-106 H Performe d by certified GLUBED) coke crane operator at [facility] UR MICROALBUMIN/CREAT [id number] 17:08:00 Test Item Value Reference Range Interpretation [...] - 300.0 Clinical albuminuria: >300.0Performed At: [facility] V[address]ib[address] [place], [place] [id number] Preston Reynolds MD [phone] [id number] 16:47:00 Test Item Value Reference Range Interpretation Comments GLUBED (test code = 173 mg/dL 74-106 H Performe d by certified GLUBED) coke crane operator at [facility] [id number] 10:07:00 Test Item Value Reference Range Interpretation Comments GLUBED (test code = 151 mg/dL 74-106 H Performe d by certified GLUBED) coke crane operator at [facility] [id number] 07:12:00 Test Item Value Reference Range Interpretation Comments TROPONIN-I (test code = TROPI) 2.350 ng/mL 0-0.045 COMMENTS TO ENT CONSULTANT: COLLECT 3 HOURS AFTER PREVIOUS SAMPLE- XR CHEST 1 [id number] 06:25:00 FAX: Piter Collins [phone] [place]: B St: ADM FAX: Reji Hernandez IMD Name: BERTRAND YU [facility] : 1955 Age/S: 63/M [address] Unit #: [id number] Loc: V.S06 [place] [address] Phys: Piter Collins Acct: V [id number] Dis Date: Status: ADM IN PHONE #: [phone] Exam Date: 06/15/2019510 FAX #: [phone] Reason: updatedpulm view EXAMS: CPT CODE: [id number] XR CHEST 1 V 30657 CLINICAL HISTORY: Respiratory failure, CHF TECHNIQUE: AP [...] ount the patients h istory. COMPREHENSIVE METABOLIC [id number] 06:07:00 Test Item Value Reference Range Interpretation [...] range due ALKP) to change in reagent. [id number] 06:07:00 Test Item Value Reference Range Interpretation Comments MAGNESIUM (test code = MAG) 2.2 mg/dL 1.8-2.4 N [id number] 05:29:00 Test Item Value Reference Range Interpretation Comments GLUBED (test code = 180 mg/dL 74-106 H Performe d by certified GLUBED) coke crane operator at [facility] CBC W/AUTO [id number] 05:09:00 Test Item Value Reference Range Interpretation [...] code = 0.00 K/mm3 0.0-0.1 N NRBC#) [id number] 21:16:00 Test Item Value Reference Range Interpretation Comments GLUBED (test code = 186 mg/dL 74-106 H Performe d by certified GLUBED) coke crane operator at [facility] [id number] 16:21:00 Test Item Value Reference Range Interpretation Comments GLUBED (test code = 229 mg/dL 74-106 H Performe d by certified GLUBED) coke crane operator at [facility] UR SMEAR EOSINOPHIL [id number] 16:03:00 Test Item Value Reference Range Interpretation Comments UR SMEAR EOSINOPHIL COUNT NONE SEEN per HPF NONE SEEN (test code = EOSCTU) UR NA,[id number] 16:03:00 Test Item Value Reference Range Interpretation Comments UR NA,RANDOM (test code = NOEMÍ) 113 mmol/L 20-110 H UR CHLORIDE [id number] 16:03:00 Test Item Value Reference Range Interpretation Comments UR CHLORIDE RANDOM (test code = 118 mEq/L CLU) UR PROTEIN/CREATININE [id number] 16:03:00 Test Item Value Reference Range Interpretation Comments UR PROTEIN RANDOM 271.2 mg/dL 0.0-11.9 H Protein le vels may be (test code = PROTU) falsely elevated in patients withel evated level of aminog lycoside antibiotics in CSF and inhighly concen trated urine specimens . If false elevation issuspected, co ntact lab for alterna ojse juan testing techniq ue. UR CREATININE 34.0 mg/dL 30-125 N RANDOM (test code = CREATU) PROTEIN/CREATININE 7.98 RATIO 0.0-0.20 H RATIO (test code = P/CRATIO) UR SMEAR EOSINOPHIL [id number] 15:08:00 Test Item Value Reference Range Interpretation Comments UR SMEAR EOSINOPHIL COUNT (test code per HPF NONE SEEN = EOSCTU) UR NA,[id number] 15:08:00 Test Item Value Reference Range Interpretation Comments UR NA,RANDOM (test code = NOEMÍ) 113 mmol/L 20-110 H UR CHLORIDE [id number] 15:08:00 Test Item Value Reference Range Interpretation Comments UR CHLORIDE RANDOM (test code = 118 mEq/L CLU) UR PROTEIN/CREATININE [id number] 15:08:00 Test Item Value Reference Range Interpretation [...] (test code = P/CRATIO) UR SMEAR EOSINOPHIL [id number] 14:58:00 Test Item Value Reference Range Interpretation Comments UR SMEAR EOSINOPHIL COUNT (test code per HPF NONE SEEN = EOSCTU) UR NA,[id number] 14:58:00 Test Item Value Reference Range Interpretation Comments UR NA,RANDOM (test code = NOEMÍ) 113 mmol/L 20-110 H UR CHLORIDE [id number] 14:58:00 Test Item Value Reference Range Interpretation Comments UR CHLORIDE RANDOM (test code = 118 mEq/L CLU) UR PROTEIN/CREATININE [id number] 14:58:00 Test Item Value Reference Range Interpretation Comments UR PROTEIN RANDOM (test code = PROTU) mg/dL 0.0-11.9 UR CREATININE RANDOM (test code = mg/dL 30-125 CREATU) PROTEIN/CREATININE RATIO (test code = RATIO 0.0-0.20 P/CRATIO) [id number] 13:09:00 Test Item Value Reference Range Interpretation Comments GLUBED (test code = 214 mg/dL 74-106 H Performe d by certified GLUBED) coke crane operator at [facility] URINALYSIS [id number] 11:40:00 Test Item Value Reference Range Interpretation [...] 0-5 code = HYALU) Urine Source? Clean [id number] 11:38:00 Test Item Value Reference Range Interpretation Comments GLUBED (test code = 203 mg/dL 74-106 H Performe d by certified GLUBED) coke crane operator at [facility] URINALYSIS [id number] 11:35:00 Test Item Value Reference Range Interpretation [...] per HPF NONE BACU) Urine Source? Clean [id number] 07:40:00 Test Item Value Reference Range Interpretation Comments TROPONIN-I (test code = TROPI) 1.380 ng/mL 0-0.045 SPECIMEN COMMENTS: 0200 LAB- XR CHEST 1 [id number] 07:30:00 FAX: Piter Collins [phone] [place]: B St: FAX: Reji Hernandez Name: BERTRAND YU [facility] : 1955 Age/S: 63/M [address] [facility] Unit #: [id number] Loc: Germaine6 [place] [address] Phys: Ptier Collins Acct: V [id number] Dis Date: Status: ADM IN PHONE #: [phone] Exam Date: 06/14/2019 0649 FAX #: [phone] Reason: updatedpulm view. EXAMS: CPT CODE: [id number] XR CHEST 1 V 29340 CLINICAL HISTORY: Respiratory failure, CHF TECHNIQUE: AP chest x-ray COMPARISON: Previous day. IMPRESSION: Improved patchy bilateral airspace opacification or pulmonary congestion. Small bilateral pleural effusions. Cardiomegaly. AICD/biv entricular pacer. LOCATION: at 0730 Reported and signed by: Eliz Ocampo D.O. CC: Piter Collins; Reji Hernandez MD Technologist: Chanell Anderson(R) Trnscrd Date/Time/By: 06/14/2019 (07) : By: [email or web address] Orig Print D/T: S: 06/14/2019 (0794) PAGE 1 Signed ReportBASIC METABOLIC [id number] 03:27:00 Test Item Value Reference Range Interpretation [...] CALCIUM (test code = CA) mg/dL 8.5-10.1 [id number] 03:27:00 Test Item Value Reference Range Interpretation Comments MAGNESIUM (test code = MAG) mg/dL 1.8-2.4 BASIC METABOLIC [id number] 03:27:00 Test Item Value Reference Range Interpretation [...] GFR) formula.Chronic kidney disease is defined as [facility] kidney damageor GFR <60 mL/min/1.73 m2 for >3 months. CREATININE (test code 2.70 mg/dL 0.7-1.3 H = CREAT) BUN/CREATININE RATIO 18.8 10-20 N (test code = BUN/CREA) CALCIUM (test code = 7.3 mg/dL 8.5-10.1 L CA) [id number] 03:27:00 Test Item Value Reference Range Interpretation Comments MAGNESIUM (test code = MAG) 2.0 mg/dL 1.8-2.4 N CBC W/O [id number] 03:06:00 Test Item Value Reference Range Interpretation [...] code 8.8 fL 6.7-11.0 N = MPV) [id number] 00:03:00 Test Item Value Reference Range Interpretation Comments TROPONIN-I (test 1.480 ng/mL 0-0.045 HH RESULT VERI FIED BY code = TROPI) REPEAT ANALYSI S COMMENTS TO ENT CONSULTANT: COLLECT 3 HOURS AFTER PREVIOUS SAMPLE- US RETRO [id number] 18:28:00 Name: BERTRAND YU [facility] : 1955 Age/S: 63 / M [address] Unit #: [id number] Loc: [place] [address] Phys: Reji Hernandez MD Acct: [id number] Dis Date: Status: ADM IN PHONE #: [phone] Exam Date: 06/13/2019 1703 FAX #: [phone] Reason: ckd EXAMS: CPTCODE: [id number] US RETRO LTD 54725 REASON FOR EXAM: ckd EXAM ORDER DATE: [...] Left kidney is within normal limits. Location: [facility] at 1828 Reported and signed by: Yoandy Calero MD PAGE 1 Signed Report (CONTINUED) Name: BERTRAND YU [facility] : 1955 Age/S: 63 / M [address] [place] Unit #: [id number] Loc: [place] [address] Phys: Reji Hernandez MD Acct: [id number] Dis Date: Status: ADM IN PHONE #: [phone] Exam Date: 06/13/2019 1703 FAX #: [phone] Reason: ckd EXAMS: CPT CODE: [id number] [facility] [address] <Continued> CC: Krystina Kowalski MD; Reji Hernandez MD T echnologist: Ladi Ruiz RDMS Trnscb Date/Time: 06/13/2019 (1827) [email or web address] Orig Print D/T: S: 06/13/2019 (183) Probe: PAGE 2 Signed Report PROTHROMBIN [id number] 14:57:00 Test Item Value Reference Range Interpretation [...] (2.5-3.5) IS PATIENT ON ANTICOAGULANTS? NTHROMBOPLASTIN TIME [id number] 14:57:00 Test Item Value Reference Range Interpretation Comments THROMBOPLASTIN TIME PARTIAL 47.3 seconds 25.0-36.5 H (test code = PTT) IS PATIENT ON ANTICOAGULANTS? [id number] 14:57:00 Test Item Value Reference Range Interpretation Comments D-DIMER (test 28636.00 0-500 HH RESULT VERIFIE D BY REPEAT [...] - IS PATIENT ON ANTICOAGULANTS? NB-TYPE NATRIURETIC [id number] 14:38:00 Test Item Value Reference Range Interpretation Comments B-TYPE NATRIURETIC PEPTIDE 1317.60 pgram/mL 0-100 H (test code = BNP) BASIC METABOLIC [id number] 14:36:00 Test Item Value Reference Range Interpretation [...] 8.6 mg/dL 8.5-10.1 N CA) HEPATIC FUNCTION [id number] 14:36:00 Test Item Value Reference Range Interpretation [...] code = 105 IUnit/L 26-208 N CK) [id number] 14:36:00 Test Item Value Reference Range Interpretation Comments LIPASE (test code = LIP) 241 U/L 73.0-393.0 N [id number] 14:36:00 Test Item Value Reference Range Interpretation Comments MAGNESIUM (test code = MAG) 2.3 mg/dL 1.8-2.4 N [id number] 14:36:00 Test Item Value Reference Range Interpretation Comments TROPONIN-I (test 1.890 ng/mL 0-0.045 HH Results ilda led to code = TROPI) [id number] by Azeem NOE 06/13/19 1433Cr itical results verifie d and read back by Nu rse? Y LACTIC [id number] 14:27:00 Test Item Value Reference Range Interpretation Comments LACTIC ACID (test code = LACT) 0.9 mmol/L 0.4-1.9 N BASIC METABOLIC [id number] 14:16:00 Test Item Value Reference Range Interpretation [...] code = CA) mg/dL 8.5-10.1 HEPATIC FUNCTION [id number] 14:16:00 Test Item Value Reference Range Interpretation [...] (CK) (test code = IUnit/L 26-208 CK) [id number] 14:16:00 Test Item Value Reference Range Interpretation Comments LIPASE (test code = LIP) U/L 73.0-393.0 [id number] 14:16:00 Test Item Value Reference Range Interpretation Comments MAGNESIUM (test code = MAG) mg/dL 1.8-2.4 [id number] 14:16:00 Test Item Value Reference Range Interpretation Comments TROPONIN-I (test code = TROPI) ng/mL 0-0.045 CBC W/AUTO [id number] 14:10:00 Test Item Value Reference Range Interpretation [...] 0.0-0.1 N NRBC#) - XR CHEST 1 [id number] 14:01:00 FAX: Krystina Banda [phone] [place]: St: PRE Name: BERTRAND YU [facility] : 1955 Age/S: 63/M [address] [facility] Unit#: [id number] Loc: [place] [address] Phys: Krystina Kowalski MD Acct: [id number] Dis Date: Status: PRE ER PHONE #: [phone] Exam Date: 06/13/2019 1350 FAX #: [phone] Reason: SHORTNESS OF BREATH EXAMS: CPT CODE: [id number] XR CHEST 1 V 07919 HISTORY: Shortness of breath. COMPARISON: None available. Left ICD with the leads in the right atrium and right ventricle patchy right infiltrate. Left basal infiltrate as well. Dependent changes. No effusion. Cardiomegaly. IMPRESSION: Patchy bilateral infiltrates, greater on the right. at 1401 Reported and signed by: Anjum Helton M.D. CC: Krystina Kowalski MD Technologist: PINKY KONG RT(R) Trnscrd Date/Time/By: 06/13/2019 (3679) : By: [email or web address] Orig Print D/T: S: 06/13/2019 (1497) PAGE 1 Signed ReportARTERIAL BLOOD [id number] 13:59:00 Test Item Value Reference Range Interpretation [...]
[2020-03-21 21:58] LABS: Absolute Lymphocytes (CBC) 2.2 K/uL (0.7-4.9); Basophils % 0.7 % (0-1.3); Hematocrit 32.8 % (39.6-49.0); Lymphocytes % 20.8 % (15.3-44.8); MPV 7.4 fL (7.6-11.3); RBC Red Blood Cell Count 3.53 M/uL (4.33-5.43)
[2020-03-21 22:11] LABS: Magnesium 2.7 mg/dL (1.8-2.4); Potassium 4.1 mmol/L (3.5-5.1); Troponin (Emerg Dept Use Only) 0.16 ng/mL (0.0-0.045)
--- NOTE | 2020-03-21 22:43 | EDPHYS ---
Physician Documentation [facility] Name: Jarod Kraft Age: 64 yrs Sex: Male : 1955 Arrival Date: 03/21/2020 Time: 21:21 Bed 7 Private MD: ED Physician Oswald Alex HPI: 03/21 21:44 This 64 yrs old Male presents to ER via EMS with complaints of sob. rn 21:44 The patient has shortness of breath at rest, with light activity. Onset: The rn symptoms/episode began/occurred this morning. Duration: The symptoms are continuous. The patient's shortness of breath is aggravated by exertion, light activity. Severity of symptoms: At their worst the symptoms were moderate in the emergency department the symptoms have improved. The patient has experienced similar episodes in the past. Reports sob since this AM, no fever, + mild cough, no chest pain, + hx of CHF and CKD, no abd pain/vomiting/blood in stool, O2 sats in 70s for EMS, placed on BIPAP with improvement of saturation and dyspnea. . Historical: - Allergies: 21:27 Erythromycin; jd3 - Home Meds: 21:27 Xarelto 20 mg Oral tab 1 tab once daily [Active]; amlodipine 10 mg tab 1 tab once daily jd3 [Active]; atorvastatin 40 mg Oral tab 1 tab once daily [Active]; carvedilol 25 mg Oral tab 1 tab 2 times per day [Active]; clonidine HCl 0.2 mg Oral tab 1 tab 3 times per day [Active]; Coreg 3.125 mg Oral tab 1 tab every 12 hours [Active]; furosemide 40 mg Oral tab 1 tab once daily [Active]; glipizide 10 mg Oral tab 1 tab 2 times per day [Active]; isosorbide mononitrate 30 mg Oral Tb24 1 tab once daily [Active]; Lantus 20 units Sub-Q daily [Active]; Levemir 100 unit/mL subcutaneous soln [Active]; levetiracetam 500 mg Oral tab 1 tab 2 times per day [Active]; Lyrica 50 mg Oral 3 times per day [Active]; Norvasc 10 mg Oral tab 1 tab once daily [Active]; Micardis 80 mg Oral tab 1 tab once daily [Active]; metformin 1,000 mg Oral tab 1 tab 2 times per day [Active]; - PMHx: 21:27 Hypertension; High Cholesterol; Irregular heart rate; Pacemaker; Diabetes - IDDM; CHF; jd3 - PSHx: 21:27 Cholecystectomy; jd3 - Immunization history:: Adult Immunizations up to date. - Social history:: Smoking status: unknown. - Family history:: not pertinent. - Hospitalizations: : No recent hospitalization is reported. ROS: 21:44 Constitutional: Negative for fever, chills, and weight loss, Eyes: Negative for injury, rn pain, redness, and discharge, Neck: Negative for injury, pain, and swelling, Cardiovascular: Negative for chest pain, palpitations Respiratory: Negative for wheezing, and pleuritic chest pain, Abdomen/GI: Negative for abdominal pain, nausea, vomiting, diarrhea, and constipation, MS/Extremity: Negative for injury and deformity, Skin: Negative for injury, rash, and discoloration, Neuro: Negative for headache, weakness, numbness, tingling, and seizure. Exam: 21:44 Constitutional: This is a well developed, well nourished patient who is awake, alert, rn seems comfortable on bipap Head/Face: Normocephalic, atraumatic. ENT: No stridor Cardiovascular: Regular rate and rhythm. No pulse deficits. Respiratory: On bipap, good air movement, diminished at bases. Abdomen/GI: soft, non-tender MS/ Extremity: Pulses equal, no cyanosis. 2+ pitting edema bilateral lower ext Neuro: Awake and alert, GCS 15 Vital Signs: 21:25 BP 147 / 88; Pulse 77; Resp 20 S; Temp 97.7(A); Pulse Ox 83% on 15% Non-rebreather jd3 mask; Weight 122.02 kg (R); Height 5 ft. 6 in. (167.64 cm) (R); Pain 0/10; 21:28 Resp 15; Pulse Ox 97% on 100% BiPAP; jd3 22:06 BP 141 / 80; Pulse 74; Resp 19 S; Pulse Ox 100% on 100% BiPAP; Pain 0/10; jd3 23:00 BP 136 / 91; Pulse 73; Resp 20 S; Pulse Ox 100% on 100% BiPAP; jd3 03/22 00:09 BP 142 / 88; Pulse 73; Resp 18 S; Pulse Ox 99% on 100% BiPAP; Pain 0/10; jd3 03/21 21:25 Body Mass Index 43.42 (122.02 kg, 167.64 cm) jd3 MDM: 03/21 21:23 Patient medically screened. rn 22:41 Differential diagnosis: CHF exacerbation, Myocardial Infarction pneumonia, Pneumothorax rn pulmonary edema. Data reviewed: vital signs, nurses notes, lab test result(s), EKG, radiologic studies, plain films, and as a result, I will admit patient. Counseling: I had a detailed discussion with the patient and/or guardian regarding: the historical points, exam findings, and any diagnostic results supporting the discharge/admit diagnosis, lab results, radiology results, the need for further work-up and treatment in the hospital. Response to treatment: the patient's symptoms have markedly improved after treatment, and as a result, I will admit patient. Admission orders: after a detailed discussion of the patient's condition and case, the admit orders are written by me. 03/21 21:23 Order name: Basic Metabolic Panel; Complete Time: 22: 03/21 21:23 Order name: CBC with Diff; Complete Time: 22: 03/21 21:23 Order name: Magnesium; Complete Time: 22: 03/21 21:23 Order name: NT PRO-BNP; Complete Time: : 03/21 21:23 Order name: Troponin (emerg Dept Use Only); Complete Time: 22: 03/21 21:23 Order name: Procalcitonin; Complete Time: 22: 03/21 21:23 Order name: XRAY Chest (1 view) 03/21 21:23 Order name: EKG; Complete Time: 21:23 03/21 21:23 Order name: BIPAP 03/21 23:04 Order name: COVID-19 03/21 23:05 Order name: CORONAVIRUS EDHI 03/22 00:06 Order name: CONS Physician Consult [facility] 03/22 00:06 Order name: Echo with Doppler [facility] 03/21 21:23 Order name: Cardiac monitoring; Complete Time: 21:40 03/21 21:23 Order name: EKG - Nurse/Tech; Complete Time: 21:40 03/21 21:23 Order name: IV Saline Lock; Complete Time: 21:40 03/21 21:23 Order name: Labs collected and sent; Complete Time: 21:40 rn 03/21 21:23 Order name: O2 Per Protocol; Complete Time: 21:29 rn 03/21 21:23 Order name: O2 Sat Monitoring; Complete Time: 21:29 rn Administered Medications: 22:39 Drug: Lasix 60 mg Route: IVP; Site: right forearm; jd3 23:35 Follow up: Response: No adverse reaction jd3 Disposition: 22:41 Critical Care:. rn Disposition: 03/21/20 22:42 Hospitalization ordered by Bunny Serrano for Inpatient Admission. Preliminary diagnosis are Unspecified combined systolic (congestive) and diastolic (congestive) heart failure, Dyspnea, unspecified, Hypoxemia, Chronic kidney disease, unspecified. - Bed requested for Telemetry/MedSurg (Inpatient). - Status is Inpatient Admission. jd3 - Condition is Stable. - Problem is an acute exacerbation. - Symptoms have improved. Critical care time excluding procedures: :41 Critical care time: Bedside Care: 25 minutes, Consultation: 5 minutes. Total time: 30 rn minutes Signatures: Dispatcher [employer] EDHI Arianna Almaraz RN RN mw Nieto, Roman, MD MD rn Davies, Jonathon, RN RN jd3 Corrections: (The following items were deleted from the chart) 23:10 22:42 Hospitalization Ordered by uBnny Serrano MD for Inpatient Admission. Preliminary mw diagnosis is Unspecified combined systolic (congestive) and diastolic (congestive) heart failure; Dyspnea, unspecified; Hypoxemia; Chronic kidney disease, unspecified. Bed requested for Telemetry/MedSurg (Inpatient). Status is Inpatient Admission. Condition is Stable. Problem is an acute exacerbation. Symptoms have improved. rn 03/22 01:02 03/21 23:10 03/21/2020 22:42 Hospitalization Ordered by Bunny Serrano MD for Inpatient jd3 Admission. Preliminary diagnosis is Unspecified combined systolic (congestive) and diastolic (congestive) heart failure; Dyspnea, unspecified; Hypoxemia; Chronic kidney disease, unspecified. Bed requested for Telemetry/MedSurg (Inpatient). Status is Inpatient Admission. Condition is Stable. Problem is an acute exacerbation. Symptoms have improved. mw
--- NOTE | 2020-03-21 22:43 | ER ---
Nurse's Notes [facility] Name: Jarod Kraft Age: 64 yrs Sex: Male : 1955 Arrival Date: 03/21/2020 Time: 21:21 Bed 7 Private MD: Diagnosis: Unspecified combined systolic (congestive) and diastolic (congestive) heart failure;Dyspnea, unspecified;Hypoxemia;Chronic kidney disease, unspecified Presentation: 03/21 21:21 Chief complaint: EMS states: "we were initally called out by the pt's family for low jd3 blood sugar, but on the seen he had a blood sugar of 102. the pt's main complaint is his shortness of breath. he is reporting that he has CHF. denies cough, fever, or any known contact with someone with COVID. saturation on non re breather isin the upper 80s.". Coronavirus screen: Client denies travel out of the [place] in the last 14 days. shortness of breath. Ebola Screen: Patient negative for fever greater than or equal to 101.5 degrees Fahrenheit, and additional compatible Ebola Virus Disease symptoms. Initial Sepsis Screen: Does the patient meet any 2 criteria? No. Patient's initial sepsis screen is negative. Does the patient have a suspected source of infection? No. Patient's initial sepsis screen is negative. Risk Assessment: Do you want to hurt yourself or someone else? Patient reports no desire to harm self or others. Onset of symptoms was March 21, 2020. 21:21 Method Of Arrival: EMS: [facility] jd3 21:21 Acuity: ASAF 2 jd3 Historical: - Allergies: 21:27 Erythromycin; jd3 - Home Meds: 21:27 Xarelto 20 mg Oral tab 1 tab once daily [Active]; amlodipine 10 mg tab 1 tab once daily jd3 [Active]; atorvastatin 40 mg Oral tab 1 tab once daily [Active]; carvedilol 25 mg Oral tab 1 tab 2 times per day [Active]; clonidine HCl 0.2 mg Oral tab 1 tab 3 times per day [Active]; Coreg 3.125 mg Oral tab 1 tab every 12 hours [Active]; furosemide 40 mg Oral tab 1 tab once daily [Active]; glipizide 10 mg Oral tab 1 tab 2 times per day [Active]; isosorbide mononitrate 30 mg Oral Tb24 1 tab once daily [Active]; Lantus 20 units Sub-Q daily [Active]; Levemir 100 unit/mL subcutaneous soln [Active]; levetiracetam 500 mg Oral tab 1 tab 2 times per day [Active]; Lyrica 50 mg Oral 3 times per day [Active]; Norvasc 10 mg Oral tab 1 tab once daily [Active]; Micardis 80 mg Oral tab 1 tab once daily [Active]; metformin 1,000 mg Oral tab 1 tab 2 times per day [Active]; - PMHx: 21:27 Hypertension; High Cholesterol; Irregular heart rate; Pacemaker; Diabetes - IDDM; CHF; jd3 - PSHx: 21:27 Cholecystectomy; jd3 - Immunization history:: Adult Immunizations up to date. - Social history:: Smoking status: unknown. - Family history:: not pertinent. - Hospitalizations: : No recent hospitalization is reported. Screenin:42 Abuse screen: Denies threats or abuse. Nutritional screening: No deficits noted. jd3 Tuberculosis screening: No symptoms or risk factors identified. Fall Risk Ambulatory Aid- None/Bed Rest/Nurse Assist (0 pts). Gait- Normal/Bed Rest/Wheelchair (0 pts) Mental Status- Oriented to own ability (0 pts). Total Lange Fall Scale indicates No Risk (0-24 pts). Assessment: 21:40 General: Appears in no apparent distress. uncomfortable, Behavior is calm, cooperative, jd3 appropriate for age. Pain: Denies pain. Neuro: Level of Consciousness is awake, alert, obeys commands, Oriented to person, place, time, situation. Cardiovascular: Heart tones present Capillary refill < 3 seconds Patient's skin is warm and dry. Rhythm is ventricular pacer. Respiratory: Reports shortness of breath at rest Airway is patent Respiratory effort is even, shallow, Respiratory pattern is regular, symmetrical, Breath sounds are clear Denies cough, pain with respiration. GI: No signs and/or symptoms were reported involving the gastrointestinal system. Patient currently denies diarrhea, nausea, vomiting. : No signs and/or symptoms were reported regarding the genitourinary system. EENT: No signs and/or symptoms were reported regarding the EENT system. Derm: Skin is intact, Skin is dry, Skin is normal, Skin temperature is warm. Musculoskeletal: Circulation, motion, and sensation intact. Range of motion: intact in all extremities. 22:06 Reassessment: Patient appears in no apparent distress at this time. Patient and/or jd3 family updated on plan of care and expected duration. Pain level reassessed. Patient is alert, oriented x 3, equal unlabored respirations, skin warm/dry/pink. Patient states symptoms have improved. 23:10 Reassessment: Patient appears in no apparent distress at this time. No changes from jd3 previously documented assessment. Patient and/or family updated on plan of care and expected duration. Pain level reassessed. Patient is alert, oriented x 3, equal unlabored respirations, skin warm/dry/pink. 03/22 00:09 Reassessment: Patient appears in no apparent distress at this time. Patient and/or jd3 family updated on plan of care and expected duration. Pain level reassessed. Patient is alert, oriented x 3, equal unlabored respirations, skin warm/dry/pink. awaiting admission orders. Vital Signs: 03/21 21:25 BP 147 / 88; Pulse 77; Resp 20 S; Temp 97.7(A); Pulse Ox 83% on 15% Non-rebreather jd3 mask; Weight 122.02 kg (R); Height 5 ft. 6 in. (167.64 cm) (R); Pain 0/10; 21:28 Resp 15; Pulse Ox 97% on 100% BiPAP; jd3 22:06 BP 141 / 80; Pulse 74; Resp 19 S; Pulse Ox 100% on 100% BiPAP; Pain 0/10; jd3 23:00 BP 136 / 91; Pulse 73; Resp 20 S; Pulse Ox 100% on 100% BiPAP; jd3 03/22 00:09 BP 142 / 88; Pulse 73; Resp 18 S; Pulse Ox 99% on 100% BiPAP; Pain 0/10; jd3 03/21 21:25 Body Mass Index 43.42 (122.02 kg, 167.64 cm) jd3 ED Course: 03/21 21:21 Patient arrived in ED. jd3 21:22 Oswald Alex MD is Attending Physician. rn 21:24 Triage completed. jd3 21:28 Arm band placed on. jd3 21:40 Inserted saline lock: 20 gauge in right forearm, using aseptic technique. Blood jd3 collected. 21:43 Patient has correct armband on for positive identification. Bed in low position. Call jd3 light in reach. Side rails up X2. bus monitor on. Pulse ox on. NIBP on. 22:05 XRAY Chest (1 view) In Process Unspecified. EDMS 22:06 Shlomo Dela Cruz, SHARRON is Primary Nurse. jd3 22:41 Bunny Serrano MD is Hospitalizing Provider. rn 03/22 00:41 No provider procedures requiring assistance completed. jd3 00:41 Patient admitted, IV remains in place. jd3 Administered Medications: 03/21 22:39 Drug: Lasix 60 mg Route: IVP; Site: right forearm; jd3 23:35 Follow up: Response: No adverse reaction jd3 Outcome: 22:42 Decision to Hospitalize by Provider. rn 03/22 00:41 Admitted to Med/surg accompanied by nurse, via stretcher, room 428, with oxygen, with jd3 chart, Report called to Emma MCDERMOTT Condition: stable Instructed on the need for admit, Demonstrated understanding of instructions. 01:02 Patient left the ED. jd3 Signatures: Dispatcher [employer] EDWA Oswald Alex MD MD rn Davies, Jonathon, RN RN jd3 Corrections: (The following items were deleted from the chart) 03/21 21:29 21:25 BP 147 / 88; Pulse 77bpm; Resp 23bpm; Spontaneous; Pulse Ox 83% 02 15% jd3 Non-rebreather mask; Temp 97.7F Axillary; 122.02 kg Reported; Height 5 ft. 6 in. Reported; BMI: 43.4; Pain 0/10; jd3 21:29 21:28 Pulse Ox 97% 02 100% BiPAP; jd3 jd3
[2020-03-21] MEDS ORDERED: FUROSEMIDE 40 MG/4 ML VIAL ONE (22:45)
[2020-03-21] MEDS ORDERED: FUROSEMIDE 20 MG/ 2ML VIAL ONE (22:45)
[2020-03-21] MEDS ORDERED: ACETAMINOPHEN 500 MG TAB PO PRN (23:59)
[2020-03-22] MEDS ORDERED: CODEINE 30MG/APAP 300MG TAB PO PRN (00:03)
[2020-03-22] MEDS: cloNIDine HCL 0.1 MG TAB PO SCH ×5 (01:00→21:11)
[2020-03-22 05:12] LABS: Absolute Lymphocytes (CBC) 2.7 K/uL (0.7-4.9); Basophils % 0.7 % (0-1.3); Hematocrit 30.7 % (39.6-49.0); Lymphocytes % 21.9 % (15.3-44.8); RBC Red Blood Cell Count 3.34 M/uL (4.33-5.43)
[2020-03-22 05:22] LABS: Albumin 3.3 g/dL (3.4-5.0); Bilirubin Total 0.6 mg/dL (0.2-1.0); Magnesium 2.5 mg/dL (1.8-2.4); Phosphorus 4.6 mg/dL (2.5-4.9); Potassium 4.2 mmol/L (3.5-5.1); Protein, Total 7.5 g/dL (6.4-8.2)
[2020-03-22 05:27] LABS: Troponin I 0.8 ng/mL (0.0-0.045)
--- NOTE | 2020-03-22 06:00 | P.HP ---
Certification for Inpatient Patient admitted to: Inpatient With expected LOS: >2 Midnights Patient will require the following post-hospital care: None Practitioner: I am a practitioner with admitting privileges, knowledge of patient current condition, hospital course, and medical plan of care. Services: Services provided to patient in accordance with Admission requirements found in Title 42 Section 412.3 of the Code of Federal Regulations Patient History Date of Service: 03/22/20 Reason for admission: Shortness of breath History of Present Illness: Patient is a 64-year-old gentleman with a history of congestive heart failure and chronic kidney disease who presents the hospital with difficulty breathing. Patient's chest x-ray revealed pulmonary edema. Patient appears to be in congestive heart failure. Will go ahead and diurese the patient at this time. Will get Cardiology and Nephrology consultation. Echocardiogram will be reviewed as well. Patient will be admitted to the hospital for further evaluation. Patient was seen in the hospital about a month ago for osteomyelitis. Patient required amputation. Allergies ciprofloxacin Allergy (Severe, Verified 03/22/20 05:24) Hives/Rash erythromycin base Allergy (Intermediate, Verified 03/22/20 05:24) GI upset/burning Home Medications: Amlodipine [Norvasc*] 10 mg PO DAILY 09/11/16 Glipizide [Glipizide ER] 10 mg PO BID 09/11/16 Insulin Detemir [Levemir*] 5 units SQ QIDP PRN 09/11/16 carvediloL [Coreg*] 25 mg PO BID 09/11/16 levETIRAcetam [Levetiracetam] 500 mg PO BID 09/11/16 Atorvastatin Calcium 40 mg PO DAILY 06/30/19 Clonidine HCl [Catapres*] 1 tab PO TID 06/30/19 Furosemide 40 mg PO DAILY 07/02/19 Furosemide [Lasix*] 20 mg PO BEDTIME 09/09/19 Isosorbide Mononitrate [Isosorbide Mononitrate ER] 30 mg PO DAILY 09/09/19 Ferrous Sulfate [Ferrous Sulfate*] 325 mg PO DAILY 03/22/20 clindamycin HCL [Clindamycin HCl] 300 mg PO BID 03/22/20 - Past Medical/Surgical History Has patient received pneumonia vaccine in the past: Yes Diabetic: Yes -: Hypertension -: Diabetes mellitus type 2, insulin-dependent -: CAD with pacemaker -: Hyperlipidemia -: Diabetic neuropathy -: CHF -: Pacemaker placement -: Cholecystectomy Psychosocial/ Personal History: Patient is - Family History Father Medical History: Heart disease Mother Medical History: Diabetes - Social History Smoking Status: Former smoker Alcohol use: No CD- Drugs: No Caffeine use: Yes Place of Residence: Home Review of Systems 10-point ROS is otherwise unremarkable Physical Examination - Vital Signs Temperature: 97.6 F Blood Pressure: 142/75 Pulse: 69 Respirations: 18 Pulse Ox (%): 95 - Physical Exam General: Alert, In no apparent distress, Oriented x3 HEENT: Atraumatic, PERRLA, Mucous membr. moist/pink, EOMI, Sclerae nonicteric Neck: Supple, 2+ carotid pulse no bruit, No LAD, Without JVD or thyroid abnormality Respiratory: Diminished, Crackles/rales, Expiratory wheezes Cardiovascular: Regular rate/rhythm, Normal S1 S2, Systolic murmur Gastrointestinal: Normal bowel sounds, Soft and benign, Non-distended, No tenderness Musculoskeletal: No clubbing, Swelling Integumentary: No rashes Neurological: Normal speech, Normal tone, Sensation intact, Cranial nerves 3-12 intact, Normal affect Lymphatics: No axilla or inguinal lymphadenopathy - Studies Laboratory Data (last 24 hrs) 03/21/20 21:37: WBC 10.8, Hgb 10.2 L, Hct 32.8 L, Plt Count 216 03/21/20 21:37: Sodium 144, Potassium 4.1, BUN 52 H, Creatinine 3.61 H, Glucose 137 H, Magnesium 2.7 H Assessment & Plan - Problems (Diagnosis) (1) Acute respiratory failure with hypoxia Current Visit: No Status: Acute (2) Acute worsening of stage 3 chronic kidney disease Current Visit: No Status: Acute (3) CHF exacerbation Current Visit: No Status: Acute (4) Diabetic foot ulcer with osteomyelitis Onset Date: 09/14/16 Current Visit: No Status: Acute (5) Essential hypertension Onset Date: 09/14/16 Current Visit: No Status: Chronic (6) History of permanent cardiac pacemaker placement Current Visit: No Status: Chronic (7) Neuropathy Onset Date: 09/14/16 Current Visit: No Status: Chronic - Plan 1. Echocardiogram; unable to find in chart and will order to review 2. Strict blood pressure control 3. Nephrology consultation and monitor renal function closely 4. Cardiology consultation 5. Aggressive diuresis 6. Strict I's and O's 7. Repeat CXR 8. Daily weights 9. Education regarding diet and treatment of congestive heart failure Discharge Plan: Home Plan to discharge in: Greater than 2 days - Advance Directives Does patient have a Living Will: No Does patient have a Durable POA for Healthcare: No - Code Status/Comfort Care Code Status Assessed: Yes Code Status: Full Code Critical Care: No Time Spent Managing PTS Care (In Minutes): 45
[2020-03-22] MEDS: FUROSEMIDE 40 MG/4 ML VIAL IV SCH ×3 (06:05→16:53)
[2020-03-22] MEDS: ASPIRIN EC 81 MG TAB PO SCH (07:06)
[2020-03-22] MEDS: levETIRAcetam 500 MG TAB PO SCH ×2 (07:07→21:12)
[2020-03-22] MEDS: ISOSORBIDE MONO SR 30 MG TAB PO SCH (07:07)
[2020-03-22] MEDS: CLOPIDOGREL 75 MG TABLET PO SCH (07:09)
[2020-03-22] MEDS: carvediloL 25 MG TAB PO SCH ×2 (07:09→21:12)
--- NOTE | 2020-03-22 07:53 | RAD REPORT ---
EXAM DESCRIPTION: Nancy Single View03/21/2020 10:05 pm CLINICAL HISTORY: Shortness of breath COMPARISON: February 21 FINDINGS: Mild to moderate bilateral pulmonary opacities. The heart is mildly to moderately enlarged . Pacemaker leads are in place. IMPRESSION: These findings probably represent CHF
[2020-03-22] MEDS: HEPARIN 5000 UNIT/ML 1 ML VIAL SQ SCH ×2 (08:07→21:12)
[2020-03-22] MEDS: AMLODIPINE 10 MG TAB PO SCH (08:40)
[2020-03-22] MEDS ORDERED: INSULIN GLARGINE 100 UNITS/ML SQ SCH (09:00)
[2020-03-22] MEDS ORDERED: ENOXAPARIN 40 MG/0.4 ML SQ SCH (09:00)
--- NOTE | 2020-03-22 13:16 | ECHO ---
HEIGHT: 5 ft 6 in WEIGHT: 267 lb 4 oz DATE OF STUDY: 03/22/[address]: Bunny Serrano MD 2-DIMENSIONAL: YES M.MODE: YES DOPPLER: YES COLOR FLOW: YES TDS: NO PORTABLE: NO DEFINITY: NO BUBBLE STUDY: NO DIAGNOSIS: CONGESTIVE HEART FAILURE CARDIAC HISTORY: CATHERIZATION: NO SURGERY: NO PROSTHETIC VALVE: NO PACEMAKER: YES MEASUREMENTS (cm) DIASTOLIC (NORMALS) SYSTOLIC (NORMALS) IVSd 1.1 (0.6-1.2) LA Diam 4.6 (1.9-4.0) LVEF 42% LVIDd 4.4 (3.5-5.7) LVIDs 3.5 (2.0-3.5) %FS 20% LVPWd 1.2 (0.6-1.2) Ao Diam 3.1 (2.0-3.7) 2 DIMENSIONAL ASSESSMENT: RIGHT ATRIUM: NORMAL LEFT ATRIUM: ENLARGED RIGHT VENTRICLE: NORMAL LEFT VENTRICLE: DEPRESSED LVEF TRICUSPID VALVE: MITRAL VALVE: PULMONIC VALVE: AORTIC VALVE: PERICARDIAL EFFUSION: NONE AORTIC ROOT: NORMAL LEFT VENTRICULAR WALL MOTION: MILDLY DEPRESSED LEFT VENTRICULAR EJECTION FRACTION 40-45% WITH DISTAL ANTEROSEPTUM AND APICAL HYPOKINESIS. DOPPLER/COLOR FLOW: SEVERE PULMONARY HYPERTENSION WITH RIGHT VENTRICULAR SYSTOLIC PRESSURE >60 mmHg. ELEVATED FILLING PRESSURE. DIASTOLIC DYSFUNCTION, MODERATE TO SEVERE. COMMENTS: MILDLY DEPRESSED LEFT VENTRICULAR EJECTION FRACTION 40-45% WITH DISTAL ANTEROSEPTUM AND APICAL HYPOKINESIS. SEVERE PULMONARY HYPERTENSION WITH RIGHT VENTRICULAR SYSTOLIC PRESSURE >60 mmHg. ELEVATED FILLING PRESSURE. MODERATE TRICUSPID REGURGITATION. MILD MITRAL REGURGITATION. MILD AORTIC INSUFFICIENCY. PACEMAKER LEAD IN THE RIGHT HEART. TECHNOLOGIST: Anirudh MACK
[2020-03-22] MEDS: ATORVASTATIN 40 MG TAB PO SCH (21:12)
[2020-03-23] MEDS: FUROSEMIDE 40 MG/4 ML VIAL IV SCH ×3 (01:36→16:47)
--- NOTE | 2020-03-23 01:59 | CON ---
Date of Consultation: 03/22/2020 Chief Complaint: Slrnk-qo-vcccaxy kidney injury. The patient has advanced chronic kidney disease, s tage 4. History Of Present Illness: The patient is 64-year-old man with history of congestive heart failure, chronic kidney disease, who presented to the hospital because of shortness of breath, dyspnea at res t. Chest x-ray reveals pulmonary edema. The patient is admitted for congestive heart failure. Neph rology consultation is requested for cardiorenal syndrome. Echocardiogram is ordered and pending. The patient has history of diabetes mellitus, congestive heart failure. He was treated with carvedil ol, amlodipine, clonidine, furosemide, and isosorbide mononitrate to control volemia, hypertension, a nd congestive heart failure. The patient has multiple medical problems. He has nonoliguric urine ou tput. He denies nonsteroidal anti-inflammatory medication, although he has advanced chronic kidney d isease in setting of diabetes mellitus, accelerated by congestive heart failure. Previous history sh owed coronary artery disease and he underwent pacemaker placement in the past. Past Medical History: Hypertension, diabetes mellitus, coronary artery disease, pacemaker placement, diabetes mellitus with renal manifestation, congestive heart failure, and cholecystectomy. Family History: Father had heart disease. Mother, diabetes. Social History: Denies tobacco, although he is a former smoker. Denies alcohol or illicit drug. Review of Systems: Constitutional: Denies fever, chills. Eyes: Denies vision changes. Ears, Nose, Mouth, and Throat: Denies sore throat, earache. Respiratory: Has shortness of breath, dyspnea at rest and on exertion. Denies wheezing. Cardiovascular: Denies chest pain, palpitation. Neuro: Denies syncope. GI: Denies nausea or vomiting. : Denies hematuria or dysuria. All other systems reviewed and all are negative. Physical Examination: General: Not in acute distress. Eyes: Anicteric sclerae. EOMI. Ears, Nose, Mouth, and Throat: Oral mucosa moist. No pallor. Neck: Supple. No JVD. No bruits. Respiratory: Diminished breath sounds at bases. Crackles present. Expiratory wheezes present. Cardiovascular: S1, S2. Systolic murmur 2/6 left lower sternal border. Gastrointestinal: Normal b owel sounds. Abdomen soft, benign. No rebound. No guarding. Musculoskeletal: No clubbing, no edema. Skin: Warm and dry. There is edema actually in both legs. Neurological: Moving extremities. Cranial nerves intact. Laboratory Data: Hemoglobin 10.2, WBC 10.8, platelet count 216. Sodium 144, potassium 4.1, BUN 52, creatinine 3.61, glucose 137, magnesium 2.7. Impression And Plan: 1.Acute respiratory failure with hypoxemia, complicated by congestive heart failure, fluid overload, worsening stage 3 kidney disease, accelerated chronic kidney disease with cardiorenal syndrome, joellen estive heart failure exacerbation. The patient has multiple medical problems including history of di abetes mellitus with complications including diabetic neuropathy and nephropathy. The patient has di abetic foot infection. He will start treatment for osteomyelitis. 2.Hypertension, uncontrolled. Advance medication. 3.Congestive heart failure. Advance diuretics to control volemia and provide treatment for congesti ve heart failure and acute kidney injury with cardiorenal syndrome. Plan is to check renal ultrasoun d to screen for any evidence of obstructive uropathy. Plan is to monitor proteinuria, and rule out nephritis in this particular patient. DANIEL/MODL Voice ID: [id number] Report ID: [id number]
[2020-03-23 06:13] LABS: Basophils % 0.7 % (0-1.3); Hematocrit 28.2 % (39.6-49.0); Lymphocytes % 20.2 % (15.3-44.8); MPV 7.2 fL (7.6-11.3); RBC Red Blood Cell Count 3.09 M/uL (4.33-5.43)
[2020-03-23 06:37] LABS: Uric Acid 12.2 mg/dL (3.5-7.2)
[2020-03-23 07:05] LABS: Bilirubin Total 0.9 mg/dL (0.2-1.0); Magnesium 2.3 mg/dL (1.8-2.4); Phosphorus 3.6 mg/dL (2.5-4.9); Potassium 4.1 mmol/L (3.5-5.1)
[2020-03-23 07:06] LABS: Troponin I 0.51 ng/mL (0.0-0.045)
[2020-03-23] MEDS: PIPER/TAZO/NS 2.25gm 2.25 GM/50 ML BAG IVPB SCH ×2 (08:01→16:46)
[2020-03-23] MEDS: cloNIDine HCL 0.1 MG TAB PO SCH ×3 (08:02→20:47)
[2020-03-23] MEDS: ASPIRIN EC 81 MG TAB PO SCH (08:03)
[2020-03-23] MEDS: ISOSORBIDE MONO SR 30 MG TAB PO SCH (08:03)
[2020-03-23] MEDS: HEPARIN 5000 UNIT/ML 1 ML VIAL SQ SCH ×2 (08:03→20:49)
[2020-03-23] MEDS: levETIRAcetam 500 MG TAB PO SCH ×2 (08:03→20:48)
[2020-03-23] MEDS: AMLODIPINE 10 MG TAB PO SCH (08:04)
[2020-03-23] MEDS: carvediloL 25 MG TAB PO SCH ×2 (08:04→20:48)
[2020-03-23] MEDS: CLOPIDOGREL 75 MG TABLET PO SCH (08:04)
[2020-03-23 10:51] LABS: Urine Appearance CLEAR; Urine Bilirubin NEGATIVE (NEG); Urine Blood TRACE (NEG); Urine Color YELLOW; Urine Glucose NEGATIVE (NEG); Urine Protein 2+ (NEG); Urine Urobilinogen 0.2 mg/dL (0.2-1.0)
[2020-03-23 10:53] LABS: Anisocytosis 1+; Blood Morphology Comment NOTED (NOT SEEN); Platelet Estimate ADEQ; Polychromasia 1+; Urine White Blood Cell Casts OK
[2020-03-23 10:54] LABS: Basophilic Stippling 1+
[2020-03-23 11:27] LABS: Urine Bacteria <20 /HPF (NONE SEEN); Urine Culture Reflex Order NOT NEEDED; Urine RBC <5 /HPF (NONE SEEN)
--- NOTE | 2020-03-23 13:04 | RAD REPORT ---
EXAM DESCRIPTION: NM - Vent Perfusion VQ Scan - 03/23/2020 12:48 pm CLINICAL HISTORY: Elevated D-dimer, evaluate for PE Shortness of breath COMPARISON: Urinary Bladder dated 10/21/2018; Chest Single View dated 03/21/2020 TECHNIQUE: 13.3mCi Xe-133 gas inhaled and 7.1mCi Tc-MAA IV. Planar ventilation scan was performed in posterior projection after Xe-133 gas inhalation (wash-in, e quilibrium, and wash-out phases) followed by perfusion scan with Tc-MAA IV in multiple projections. Examination is correlated with recent chest radiograph. FINDINGS: Normal ventilation with appropriate wash-out and no significant air-trapping. No mismatched segmental perfusion defect. Small left upper lobe perfusion defect is likely related to pacer device. IMPRESSION: Low probability of acute pulmonary embolism.
--- NOTE | 2020-03-23 18:49 | RAD REPORT ---
EXAM DESCRIPTION: US - Extrem Venous W Compress Mumtaz - 03/23/2020 6:44 pm CLINICAL HISTORY: Elevated D-dimer, evaluate for DVT Bilateral leg edema and swelling. COMPARISON: Extremity Venous Uni Ltd dated 02/29/2020 TECHNIQUE: Real-time sonographic interrogation of the left and right lower extremity deep venous sys tems was performed. FINDINGS: Normal compressibility, flow augmentation, phasic flow and spontaneous flow is identified in both the left and right lower extremity deep venous systems. IMPRESSION: No sonographic evidence of left or right lower extremity deep venous thrombosis.
--- NOTE | 2020-03-23 19:00 | RAD REPORT ---
EXAM DESCRIPTION: US - Renal Ultrasound-Complete - 03/23/2020 6:44 pm CLINICAL HISTORY: arf on ckd Flank pain COMPARISON: Renal Ultrasound-Complete dated 10/21/2018 FINDINGS: Both kidneys are normal in size, shape and echotexture. The right kidney measures 10.8 x 5.8 x 5.1 cm. No hydronephrosis, focal mass or perinephric fluid. The left kidney measures 11.4 x 5.4 x 5.3 cm. No hydronephrosis, focal mass or perinephric fluid. The urinary bladder is incompletely distended without gross abnormality seen. IMPRESSION: Unremarkable renal sonogram.
[2020-03-23] MEDS: ATORVASTATIN 40 MG TAB PO SCH (20:48)
--- NOTE | 2020-03-24 00:17 | PN ---
Date of Progress Note: 03/23/2020 Chief Complaint: Acute on chronic kidney injury. History Of Present Illness: The patient has advanced chronic kidney disease stage 4. He presented t o the hospital because of congestive heart failure exacerbation. He was complaining of shortness of breath, dyspnea at rest, and chest x-ray showed interstitial pulmonary edema. He is on diuretics to control volemia and provide management of congestive heart failure. He has multiple medical problems , acute kidney injury was found and prerenal azotemia with cardiorenal syndrome when the patient was started on diuretic in the hospital. The patient chronically is on diuretics and there is a question able compliance with medication. Review of Systems: Denies PND or orthopnea. Physical Examination: Lungs: Diminished breath sounds at bases. Heart: S1, S2. Abdomen: Soft, benign. Extremities: Edema present in both legs. Laboratory Data: Hemoglobin 9.1, WBC 9.8, platelet count 174,000. Sodium 148, potassium 4.1, chlori de 112, CO2 25, BUN 53, creatinine 3.67, glucose 150. Troponin 0.51. Impression And Plan: 1.Congestive heart failure. BNP was 41,943. Troponin is elevated. The patient may require cardiac workup with cardiac catheterization. He is undergoing workup for possible PE with V/Q scan. No mis matched segmental perfusion defect. Low probability of acute pulmonary embolism. The patient will c ontinue medication for blood pressure control and diuretics to treat congestive heart failure. Renal ultrasound was done to rule out obstructive uropathy. There is no hydronephrosis. 2.Unremarkable renal sonogram. Bladder is incompletely distended. Left kidney 11.4 cm in length an d right kidney 10.8 cm in length. 3.Lab work showed stable creatinine with stage 4 to stage 5 chronic kidney disease and the patient w ill be taking diuretics for volemia control. Although if unable, may need to start dialysis. I disc ussed with the patient today treatment of congestive heart failure. Plan is to monitor renal functio n. Make further recommendation accordingly. DANIEL/MODL Voice ID: [id number] Report ID: [id number]
[2020-03-24] MEDS: PIPER/TAZO/NS 2.25gm 2.25 GM/50 ML BAG IVPB SCH ×2 (01:00→09:46)
[2020-03-24] MEDS: FUROSEMIDE 40 MG/4 ML VIAL IV SCH ×3 (01:14→16:21)
--- NOTE | 2020-03-24 05:36 | P.PN ---
Subjective Date of Service: 03/23/20 Patient continues improve. Respiratory status is much better. Wean off BiPAP. Review of Systems 10-point ROS is otherwise unremarkable Physical Examination - Vital Signs Temperature: 97.6 F Blood Pressure: 142/75 Pulse: 69 Respirations: 18 Pulse Ox (%): 95 - Physical Exam General: Alert, In no apparent distress, Oriented x3 Respiratory: Diminished, Crackles/rales Cardiovascular: Regular rate/rhythm, Normal S1 S2, Systolic murmur Gastrointestinal: Normal bowel sounds, Soft and benign, Non-distended, No tenderness Musculoskeletal: No clubbing, No swelling, No tenderness Integumentary: No rashes - Studies Microbiology Data (last 24 hrs): 03/21/20 23:18 Nasopharnyx Coronavirus COVID-19 PCR - Final Medications List Reviewed: Yes Assessment & Plan - Problems (Diagnosis) (1) Acute respiratory failure with hypoxia Current Visit: No Status: Acute (2) Acute worsening of stage 3 chronic kidney disease Current Visit: No Status: Acute (3) CHF exacerbation Current Visit: No Status: Acute (4) Diabetic foot ulcer with osteomyelitis Onset Date: 09/14/16 Current Visit: No Status: Acute (5) Essential hypertension Onset Date: 09/14/16 Current Visit: No Status: Chronic (6) History of permanent cardiac pacemaker placement Current Visit: No Status: Chronic (7) Neuropathy Onset Date: 09/14/16 Current Visit: No Status: Chronic - Plan 1. Echocardiogram with severe pulmonary hypertension 2. Strict blood pressure control 3. Nephrology consultation and monitor renal function closely 4. Cardiology consultation appreciated 5. Aggressive diuresis and will get pulmonary consultation 6. Strict I's and O's 7. Repeat CXR 8. Daily weights 9. GI and DVT prophylax Discharge Plan: Home Plan to discharge in: Greater than 2 days - Advance Directives Does patient have a Living Will: No Does patient have a Durable POA for Healthcare: No - Code Status/Comfort Care Code Status: Full Code Critical Care: No Time Spent Managing PTS Care (In Minutes): 30
--- NOTE | 2020-03-24 05:39 | P.PN ---
Subjective Date of Service: 03/24/20 Weaned off BiPAP. Continue with current diuresing. Awaiting pulmonary consultation for severe pulmonary hypertension. Review of Systems 10-point ROS is otherwise unremarkable Physical Examination - Vital Signs Temperature: 97.6 F Blood Pressure: 142/75 Pulse: 69 Respirations: 18 Pulse Ox (%): 95 - Physical Exam General: Alert, In no apparent distress, Oriented x3 Respiratory: Clear to auscultation bilaterally, Normal air movement Cardiovascular: Regular rate/rhythm, Normal S1 S2 Gastrointestinal: Normal bowel sounds, Soft and benign, Non-distended, No tenderness Musculoskeletal: No clubbing, No tenderness, Swelling Integumentary: No rashes Neurological: Normal strength at 5/5 x4 extr, Normal tone - Studies Microbiology Data (last 24 hrs): 03/21/20 23:18 Nasopharnyx Coronavirus COVID-19 PCR - Final Medications List Reviewed: Yes Assessment & Plan - Problems (Diagnosis) (1) Acute respiratory failure with hypoxia Current Visit: No Status: Acute (2) Acute worsening of stage 3 chronic kidney disease Current Visit: No Status: Acute (3) CHF exacerbation Current Visit: No Status: Acute (4) Diabetic foot ulcer with osteomyelitis Onset Date: 09/14/16 Current Visit: No Status: Acute (5) Essential hypertension Onset Date: 09/14/16 Current Visit: No Status: Chronic (6) History of permanent cardiac pacemaker placement Current Visit: No Status: Chronic (7) Neuropathy Onset Date: 09/14/16 Current Visit: No Status: Chronic - Plan 1. Echocardiogram with severe pulmonary hypertension; continue with gentle diuresing 2. Strict blood pressure control 3. Nephrology consultation and monitor renal function closely 4. Cardiology consultation appreciated 5. Gentle diuresing and will get pulmonary consultation 6. Strict I's and O's 7. Repeat CXR 8. Daily weights 9. GI and DVT prophylax - Advance Directives Does patient have a Living Will: No Does patient have a Durable POA for Healthcare: No - Code Status/Comfort Care Code Status: Full Code
[2020-03-24] MEDS: CLOPIDOGREL 75 MG TABLET PO SCH (09:40)
[2020-03-24] MEDS: ASPIRIN EC 81 MG TAB PO SCH (09:40)
[2020-03-24] MEDS: carvediloL 25 MG TAB PO SCH ×2 (09:40→21:00)
[2020-03-24] MEDS: AMLODIPINE 10 MG TAB PO SCH (09:41)
[2020-03-24] MEDS: HEPARIN 5000 UNIT/ML 1 ML VIAL SQ SCH ×2 (09:41→21:08)
[2020-03-24] MEDS: ISOSORBIDE MONO SR 30 MG TAB PO SCH (09:46)
[2020-03-24] MEDS: cloNIDine HCL 0.1 MG TAB PO SCH ×3 (09:46→21:07)
[2020-03-24] MEDS: levETIRAcetam 500 MG TAB PO SCH ×2 (09:46→21:07)
--- NOTE | 2020-03-24 10:19 | P.CNS ---
Date of Consult: 03/24/20 Reason for Consult: Pulmonary hypertension Chief Complaint: Shortness of breath History of Present Illness: Patient is 64 years of age with a history of congestive heart failure chronic renal disease admitted with shortness of breath pulmonary edema he is doing much better echocardiogram shows severe pulmonary hypertension presume secondary to diastolic dysfunction. No evidence of DVT of thromboembolism patient had a V/Q scan that shows low probability in no evidence of blood clots in his legs. He has home oxygen he is at risk for sleep apnea patient quit smoking a long time ago Allergies ciprofloxacin Allergy (Severe, Verified 03/22/20 05:24) Hives/Rash erythromycin base Allergy (Intermediate, Verified 03/22/20 05:24) GI upset/burning Home Medications: Amlodipine [Norvasc*] 10 mg PO DAILY 09/11/16 Glipizide [Glipizide ER] 10 mg PO BID 09/11/16 Insulin Detemir [Levemir*] 5 units SQ QIDP PRN 09/11/16 carvediloL [Coreg*] 25 mg PO BID 09/11/16 levETIRAcetam [Levetiracetam] 500 mg PO BID 09/11/16 Atorvastatin Calcium 40 mg PO DAILY 06/30/19 Clonidine HCl [Catapres*] 1 tab PO TID 06/30/19 Furosemide 40 mg PO DAILY 07/02/19 Furosemide [Lasix*] 20 mg PO BEDTIME 09/09/19 Isosorbide Mononitrate [Isosorbide Mononitrate ER] 30 mg PO DAILY 09/09/19 Ferrous Sulfate [Ferrous Sulfate*] 325 mg PO DAILY 03/22/20 clindamycin HCL [Clindamycin HCl] 300 mg PO BID 03/22/20 - Past Medical/Surgical History Diabetic: Yes -: Hypertension -: Diabetes mellitus type 2, insulin-dependent -: CAD with pacemaker -: Hyperlipidemia -: Diabetic neuropathy -: CHF -: Pacemaker placement -: Cholecystectomy Psychosocial/ Personal History: Patient is - Family History Father Medical History: Heart disease Mother Medical History: Diabetes - Social History Smoking Status: Unknown if ever smoked Alcohol use: No CD- Drugs: No Caffeine use: Yes Place of Residence: Home Review of Systems General: Weakness Respiratory: Shortness of Breath Cardiovascular: Edema Physical Examination Temp Pulse Resp BP Pulse Ox 96.9 F 68 16 147/76 H 94 03/24/20 08:00 03/24/20 09:40 03/24/20 08:00 03/24/20 09:40 03/24/20 08:00 General: Alert, In no apparent distress Respiratory: Clear to auscultation bilaterally Cardiovascular: Edema Gastrointestinal: Normal bowel sounds, Soft and benign - Problems (1) Pulmonary hypertension Current Visit: Yes Status: Acute Plan: Patient is 64 years of age admitted with shortness of breath he has severe pulmonary hypertension no evidence of right ventricular dilatation no evidence of DVT low probability V/Q scan I suspect his pulmonary hypertension is secondary to his diastolic dysfunction patient will need outpatient sleep study pulmonary function testing withhold treatment 1st pulmonary hypertension right now diuretics as per renal apparently he has a CPAP at home will follow up as an outpatient
[2020-03-24] MEDS: ATORVASTATIN 40 MG TAB PO SCH (21:07)
[2020-03-25] MEDS: FUROSEMIDE 40 MG/4 ML VIAL IV SCH ×3 (00:15→17:08)
--- NOTE | 2020-03-25 00:27 | PN ---
Date of Progress Note: 03/24/2020 Chief Complaint: Advanced chronic kidney disease. History Of Present Illness: Patient has history of chronic kidney disease stage 4, who presented to the hospital because of congestive heart failure exacerbation. He was complaining of shortness of br eath. Chest x-ray showed interstitial pulmonary edema. He is on diuretic to control volemia and pro vide management for congestive heart failure high. He has multiple medical problems including histor y of acute kidney injury, was found to have cardiorenal syndrome, and is on diuretics for volemia con trol. BNP was severely elevated up to 41,943, and renal ultrasound was unremarkable. There was no r ectal or urinary retention. No hydronephrosis. Review of Systems: Denies PND or orthopnea. Physical Examination: Lungs: Diminished breath sounds at bases. Heart: S1, S2. Abdomen: Soft, benign. Extremities: Edema present in both legs. Laboratory Data: Lab work today shows glucose 128, troponin 0.23. Previously, troponin was 0.80 and 0.51. Renal panel was done on March 23. Uric acid was 12.2. Sodium 141, potassium 4.1, chloride 112, CO2 of 25, BUN 52, creatinine 3.67, glucose 150, magnesium 2.3, calcium 8.1, phosphorus 3.6. Impression And Plan: 1.Congestive heart failure with diastolic dysfunction. Patient is evaluated for pulmonary hypertens ion, likely secondary to diastolic dysfunction, congestive heart failure. Patient will continue beta adamaris and diuretics for volemia control. Patient has adequate urine output. Furosemide is schedu le 40 mg every 8 hours. Monitor urine output. 2.The patient will have evaluation for possible obstructive sleep apnea and will need further recomm endation for pulmonary hypertension from pulmonary service. 3.Prerenal azotemia secondary to diuretics. Monitor urine output. There is hyperuricemia present. Patient does not have history of gout, although in view of elevated uric acid, patient will start lo w-purine diet as well as allopurinol. 4.Renal ultrasound did not show evidence of obstructive uropathy. Monitor urine output and renal pa herve. 5.Hypertension. Patient's blood pressure control is improving. Patient may require dialysis if marilynn al function worsens. Patient has fluid overload, electrolyte abnormalities. EB/MODL Voice ID: [id number] Report ID: [id number]
[2020-03-25 05:42] LABS: Potassium 4.5 mmol/L (3.5-5.1); Troponin I 0.14 ng/mL (0.0-0.045)
[2020-03-25] MEDS: AMLODIPINE 10 MG TAB PO SCH (08:44)
[2020-03-25] MEDS: carvediloL 25 MG TAB PO SCH ×2 (08:44→21:39)
[2020-03-25] MEDS: levETIRAcetam 500 MG TAB PO SCH ×2 (08:45→21:39)
[2020-03-25] MEDS: ISOSORBIDE MONO SR 30 MG TAB PO SCH (08:45)
[2020-03-25] MEDS: allopurinoL 100 MG TAB PO SCH (08:45)
[2020-03-25] MEDS: ASPIRIN EC 81 MG TAB PO SCH (08:45)
[2020-03-25] MEDS: CLOPIDOGREL 75 MG TABLET PO SCH (08:45)
[2020-03-25] MEDS: cloNIDine HCL 0.1 MG TAB PO SCH ×3 (08:45→21:40)
[2020-03-25] MEDS: HEPARIN 5000 UNIT/ML 1 ML VIAL SQ SCH ×2 (08:45→21:40)
--- NOTE | 2020-03-25 12:52 | CON ---
Reason For Consultation: Heart failure and pulmonary hypertension. History Of Present Illness: This is a 64-year-old male, who apparently has history of diabetes, dysl ipidemia, congestive heart failure, coronary artery disease, hypertension, presented with worsening s hortness of breath, orthopnea, and lower extremity edema. An echocardiogram was done on Wednesday and I evaluated the images myself, and he has significant pulmonary hypertension along with systolic and d iastolic congestive heart failure with some wall motion abnormalities. The patient denies having kaiden st pain and he appears comfortable, lying in bed today, and denies having any cough, but has signific ant lower extremity edema. Past Medical History: As outlined above in the HPI. Medications: Refer to reconciliation sheet for detailed list. Allergies: CIPROFLOXACIN AND ERYTHROMYCIN. Family History: No premature coronary artery disease or cancer. Past Surgical History: Had a cholecystectomy and pacemaker implantation. Social History: He does not smoke or drink. Does not use any drugs. Review of Systems: All systems reviewed and they were negative except for mentioned in the HPI. Physical Examination: Vital Signs: Revealed a temperature of 97.0, pulse 63, breathing at 20, blood pressure is 154/78, sa turating 96% with 2 L oxygen. General: Pleasant, middle-aged male, obese, no apparent distress. Head and Neck: Pupils are equal, react to light. Intact eye movements. Elevated JVD to the earlobe s. No accessory muscle use or muscle retraction. Heart: Regular with no extra sounds. Abdomen: Soft, nontender. Bowel sounds positive. No organomegaly. No masses or hernia. No rigidi ty or rebound. Extremities: 3+ pitting edema bilaterally. No clubbing, cyanosis. Intact pulses. Skin: No rash. Neurologic: Alert, awake, oriented x3. No acute focal deficits appreciated. Lymph Nodes: No cervical or axillary lymphadenopathy. Investigations: Creatinine 3.69, BUN is 61, glucose of 44. Troponin 0.14. Troponin peaked at 0.51. NT-proBNP of 37,741. The echocardiogram showed borderline low ejection fraction with anterior sept al and apical hypokinesis and severe pulmonary hypertension and significant diastolic dysfunction. Assessment And Recommendations: 1.Acute congestive heart failure exacerbation. He has both systolic and diastolic dysfunction. Rec ommend to use high-dose IV diuretics such as furosemide 80 mg IV q.8 hours for symptoms relief and ca rdiac workup to rule out cardiac ischemia is warranted. Due to elevated creatinine, we will hold off on coronary angiogram and I recommend a nuclear stress test to further evaluate and if nuclear stres s test is positive, then we will discuss the patient's risks for contrast exposure given the kidney d isease and discuss further with primary care physician as well. Again, increase the Lasix to 80 mg q .8 hours for proper diuresis due to significantly elevated creatinine and also try to treat blood pre ssure to decrease afterload. Blood pressure goal to be around 120 or below. 2.Elevated troponin. This could be demand ischemia versus non-ST elevation myocardial infarction. Again, he has no chest pain. Recommend start aspirin, anticoagulate with Lovenox, await stress test results. Recommend a pharmacological nuclear stress test and plan for coronary angiogram only if it is positive due to elevated creatinine. 3.Elevated creatinine. Recommend Nephrology evaluation. This could be due to cardiorenal syndrome and should improve with aggressive diuresis. /MODL Voice ID: [id number] Report ID: [id number]
[2020-03-25] MEDS: ATORVASTATIN 40 MG TAB PO SCH (21:40)
[2020-03-26] MEDS: FUROSEMIDE 40 MG/4 ML VIAL IV SCH ×3 (01:46→16:16)
--- NOTE | 2020-03-26 02:41 | PN ---
Date of Progress Note: 03/25/2020 Chief Complaint: Advanced chronic kidney disease. Subjective: The patient has chronic kidney disease, stage 4, presented to the hospital because of co ngestive heart failure exacerbation, was complaining of shortness of breath and chest x-ray showed pu lmonary edema. The patient is started on diuretic. The patient has cardiorenal syndrome and hypervo lemia. BNP was 41,943. Ultrasound was unremarkable. The patient did not have urinary retention, no hydronephrosis. Review of Systems: Denies fever or chills. Physical Examination: Lungs: Diminished breath sounds at bases. Heart: S1 and S2. Abdomen: Soft, benign. Extremities: Edema in both legs. Laboratory Data: Glucose 150, BUN 52, creatinine 3.67, phosphorus 3.6, calcium 8.1, troponin 0.23, C O2 of 25, chloride 112, potassium 4.1, sodium 141. Impression And Plan: 1.Congestive heart failure with diastolic dysfunction, fluid overload. The patient is undergoing wo rkup for pulmonary hypertension. Continue diuretic, monitor fluid balance and continue low-sodium di et. 2.Prerenal azotemia secondary to diuretic hyperuricemia. Continue allopurinol. The patient at this point does not have symptoms of gout. 3.Renal ultrasound did not show evidence of obstructive uropathy. Monitor urine output. 4.Hypertension. Blood pressure is improving. Continue current medication. DANIEL/SADIE Voice ID: [id number] Report ID: [id number]
--- NOTE | 2020-03-26 06:01 | P.PN ---
Subjective Date of Service: 03/25/20 Appreciate cardiology recommendations. Stress test in a.m.. Patient has clinically responded to diuresing. Continue with diuretics at this time. Patient's renal function remains stable; however, long-term he will probably need hemodialysis for better management of volume status. Otherwise, he will pr obably have recurrent hospitalizations. Pending stress test evaluation patient may need coronary angiogram. He will be at high risk for having worsening renal function. Workup pending at this time. Review of Systems 10-point ROS is otherwise unremarkable Physical Examination - Vital Signs Temperature: 97.2 F Blood Pressure: 146/82 Pulse: 60 Respirations: 18 Pulse Ox (%): 93 - Physical Exam General: Alert, In no apparent distress, Oriented x3 Neck: Supple, JVD not distended Respiratory: Crackles/rales (basilar) Cardiovascular: Regular rate/rhythm, Normal S1 S2, Systolic murmur Gastrointestinal: Normal bowel sounds, Soft and benign, Non-distended, No tenderness Musculoskeletal: No clubbing, Swelling Integumentary: Other (hyperpigmentation) Neurological: Normal speech, Normal tone, Normal affect Lymphatics: No axilla or inguinal lymphadenopathy - Studies Medications List Reviewed: Yes Assessment & Plan - Problems (Diagnosis) (1) Acute respiratory failure with hypoxia Current Visit: No Status: Acute (2) Acute worsening of stage 3 chronic kidney disease Current Visit: No Status: Acute (3) CHF exacerbation Current Visit: No Status: Acute (4) Diabetic foot ulcer with osteomyelitis Onset Date: 09/14/16 Current Visit: No Status: Acute (5) Essential hypertension Onset Date: 09/14/16 Current Visit: No Status: Chronic (6) History of permanent cardiac pacemaker placement Current Visit: No Status: Chronic (7) Neuropathy Onset Date: 09/14/16 Current Visit: No Status: Chronic - Plan 1. Echocardiogram with severe pulmonary hypertension; continue with gentle diuresing-monitor renal function closely; stress test in AM 2. Strict blood pressure control 3. Nephrology consultation appreciated and monitor renal function closely 4. Cardiology consultation appreciated 5. Pulmonary consultation appreciated; may need right heart angio to evaluate pulm. HTN in near future 6. Strict I's and O's 7. Repeat CXR 8. Daily weights 9. GI and DVT prophylax Discharge Plan: Home Plan to discharge in: Greater than 2 days - Advance Directives Does patient have a Living Will: No Does patient have a Durable POA for Healthcare: No - Code Status/Comfort Care Code Status: Full Code Critical Care: No Time Spent Managing PTS Care (In Minutes): 35
[2020-03-26 06:23] LABS: Magnesium 2.5 mg/dL (1.8-2.4); Potassium 4.1 mmol/L (3.5-5.1)
[2020-03-26] MEDS: ISOSORBIDE MONO SR 30 MG TAB PO SCH (11:35)
[2020-03-26] MEDS: cloNIDine HCL 0.1 MG TAB PO SCH ×3 (11:35→22:04)
[2020-03-26] MEDS: HEPARIN 5000 UNIT/ML 1 ML VIAL SQ SCH ×2 (11:35→22:05)
[2020-03-26] MEDS: levETIRAcetam 500 MG TAB PO SCH ×2 (11:35→22:05)
[2020-03-26] MEDS: carvediloL 25 MG TAB PO SCH ×2 (11:35→22:05)
[2020-03-26] MEDS: AMLODIPINE 10 MG TAB PO SCH (11:35)
[2020-03-26] MEDS: allopurinoL 100 MG TAB PO SCH (11:36)
[2020-03-26] MEDS: ASPIRIN EC 81 MG TAB PO SCH (11:36)
[2020-03-26] MEDS: CLOPIDOGREL 75 MG TABLET PO SCH (11:36)
--- NOTE | 2020-03-26 15:25 | P.PN ---
Date of Service: 03/26/[address] Corbin with cardiology who states that from a cardiology standpoint the patient can be discharged to follow up with Dr. Davidson on outpatient basis. <Rigoberto Hawthorne - Last Filed: 03/26/20 15:24> Subjective Date of Service: 03/25/20 Patient was cleared for discharge; however, home oxygen was not able to get set up in a timely manner. Discharge held. Physical Examination - Vital Signs reviewed - Physical Exam Not performed - Studies Medications List Reviewed: Yes Assessment & Plan - Problems (Diagnosis) (1) Acute respiratory failure with hypoxia Current Visit: No Status: Acute (2) Acute worsening of stage 3 chronic kidney disease Current Visit: No Status: Acute (3) CHF exacerbation Current Visit: No Status: Acute (4) Diabetic foot ulcer with osteomyelitis Onset Date: 09/14/16 Current Visit: No Status: Acute (5) Essential hypertension Onset Date: 09/14/16 Current Visit: No Status: Chronic (6) History of permanent cardiac pacemaker placement Current Visit: No Status: Chronic (7) Neuropathy Onset Date: 09/14/16 Current Visit: No Status: Chronic - Plan 1. Echocardiogram with severe pulmonary hypertension; Arrange home oxygen 2. Strict blood pressure control 3. Nephrology consultation appreciated and monitor renal function closely 4. Cardiology consultation appreciated 5. Pulmonary consultation appreciated; may need right heart angio to evaluate pulm. HTN in near future 6. Strict I's and O's 7. Repeat CXR 8. Daily weights 9. GI and DVT prophylax Discharge Plan: Home, once home oxygen was arranged - Advance Directives Does patient have a Living Will: No Does patient have a Durable POA for Healthcare: No - Code Status/Comfort Care Code Status: Full Code Critical Care: No Time Spent Managing PTS Care (In Minutes): 10 <Bunny Serrano - Last Filed: 03/27/20 05:26>
--- NOTE | 2020-03-26 18:05 | P.DS ---
Discharge Date: 03/26/20 Disposition: ROUTINE DISCHARGE Discharge Condition: GOOD Reason for Admission: Shortness of breath - Problems (1) Acute respiratory failure with hypoxia Current Visit: No Status: Acute (2) Acute worsening of stage 3 chronic kidney disease Current Visit: No Status: Acute (3) CHF exacerbation Current Visit: No Status: Acute (4) Diabetic foot ulcer with osteomyelitis Onset Date: 09/14/16 Current Visit: No Status: Acute (5) Essential hypertension Onset Date: 09/14/16 Current Visit: No Status: Chronic (6) History of permanent cardiac pacemaker placement Current Visit: No Status: Chronic (7) Neuropathy Onset Date: 09/14/16 Current Visit: No Status: Chronic Brief History of Present Illness: Patient is a 64-year-old gentleman with a history of congestive heart failure and chronic kidney disease who presents the hospital with difficulty breathing. Patient's chest x-ray revealed pulmonary edema. Patient appears to be in congestive heart failure. Will go ahead and diurese the patient at this time. Will get Cardiology and Nephrology consultation. Echocardiogram will be reviewed as well. Patient will be admitted to the hospital for further evaluation. Patient was seen in the hospital about a month ago for osteomyelitis. Patient required amputation. Vital Signs/Physical Exam: Temp Pulse Resp BP Pulse Ox 96.9 F 69 20 154/80 H 99 03/26/20 16:00 03/26/20 16:16 03/26/20 16:00 03/26/20 16:16 03/26/20 16:00 Laboratory Data at Discharge: WBC 9.8 K/uL (4.3-10.9) D 03/23/20 05:36 Hgb 9.1 g/dL (13.6-17.9) L 03/23/20 05:36 Hct 28.2 % (39.6-49.0) L 03/23/20 05:36 Plt Count 174 K/uL (152-406) 03/23/20 05:36 Sodium 142 mmol/L (136-145) 03/26/20 05:29 Potassium 4.1 mmol/L (3.5-5.1) 03/26/20 05:29 BUN 65 mg/dL (7-18) H 03/26/20 05:29 Creatinine 3.67 mg/dL (0.55-1.3) H 03/26/20 05:29 Glucose 181 mg/dL (74-106) H 03/26/20 05:29 Uric Acid 12.2 mg/dL (3.5-7.2) H D 03/23/20 05:36 Phosphorus 4.0 mg/dL (2.5-4.9) 03/26/20 05:29 Magnesium 2.5 mg/dL (1.8-2.4) H 03/26/20 05:29 Total Bilirubin 0.9 mg/dL (0.2-1.0) 03/23/20 05:36 AST 12 U/L (15-37) L 03/23/20 05:36 ALT 25 U/L (12-78) 03/23/20 05:36 Alkaline Phosphatase 105 U/L (45-117) 03/23/20 05:36 Troponin I 0.14 ng/mL (0.0-0.045) H 03/25/20 04:55 Home Medications: Amlodipine [Norvasc*] 10 mg PO DAILY 09/11/16 Glipizide [Glipizide ER] 10 mg PO BID 09/11/16 Insulin Detemir [Levemir*] 5 units SQ QIDP PRN 09/11/16 carvediloL [Coreg*] 25 mg PO BID 09/11/16 levETIRAcetam [Levetiracetam] 500 mg PO BID 09/11/16 Atorvastatin Calcium 40 mg PO DAILY 06/30/19 Clonidine HCl [Catapres*] 1 tab PO TID 06/30/19 Furosemide 40 mg PO DAILY 07/02/19 Furosemide [Lasix*] 20 mg PO BEDTIME 09/09/19 Isosorbide Mononitrate [Isosorbide Mononitrate ER] 30 mg PO DAILY 09/09/19 Ferrous Sulfate [Ferrous Sulfate*] 325 mg PO DAILY 03/22/20 clindamycin HCL [Clindamycin HCl] 300 mg PO BID 03/22/20 allopurinoL [Zyloprim*] 100 mg PO DAILY #30 tab 03/25/20 New Medications: allopurinoL [Zyloprim*] 100 mg PO DAILY #30 tab Patient Discharge Instructions: OK TO DC IV AND DC HOME. FOLLOW-UP WITH PRIMARY CARE PROVIDER IN 1-2 WEEKS. FOLLOW-UP WITH PULMONARY IN 1-2 WEEKS. FOLLOW-UP WITH NEPHROLOGY IN 2 WEEKS. FOLLOW-UP WITH CARDIOLOGY IN 2-4 WEEKS. RETURN TO THE ER IF symptoms worsen. CALL or TEXT DR. DUTTA AT [phone] IF ANY QUESTIONS REGARDING HOSPITAL STAY. PLEASE CALL THE FLOOR AT [phone] IF ANY MEDICATION OR NURSING QUESTIONS. Diet: Renal (LOW PURINE DIET) Activity: Fall precautions
[2020-03-26] MEDS: ATORVASTATIN 40 MG TAB PO SCH (22:06)
[2020-03-27] MEDS: FUROSEMIDE 40 MG/4 ML VIAL IV SCH ×2 (00:57→09:49)
--- NOTE | 2020-03-27 01:57 | PN ---
Date of Progress Note: 03/26/2020 Chief Complaint: Advanced chronic kidney disease, congestive heart failure exacerbation, fluid overl oad. History Of Present Illness: The patient presented to the hospital because of shortness of breath. C hest x-ray showed pulmonary edema. The patient was started on diuretic. BNP was 41,943. Ultrasound was unremarkable. Renal function has been plateauing. The patient has advanced chronic kidney dise ase and remains at baseline. There is high BUN creatinine ratio, which is due to diuretic effect. Review of Systems: Denies PND or orthopnea. Physical Examination: Lungs: Diminished breath sounds at bases. Heart: S1, S2. Abdomen: Soft, benign. Extremities: Both leg edema present. Laboratory Data: WBC 9.8, hemoglobin 9.1, platelet count 174,000. Chemistry showed sodium 142, pota ssium 4.1, chloride 110, CO2 of 28, BUN 65, creatinine 3.65, magnesium 2.5, phosphorus 4.0, calcium 8 .5, glucose 181. Impression And Plan: 1.Chronic kidney disease, stage 4; congestive heart failure; fluid overload. The patient is respond ing to diuretics. Continue to monitor electrolytes and renal function. Continue diuretic. 2.Prerenal azotemia associated with hyperuricemia. The patient was started on allopurinol. There i s no evidence of gout flare at this point. 3.Renal ultrasound did not show evidence of obstructive uropathy. Continue current treatment. DANIEL/SADIE Voice ID: [id number] Report ID: [id number]
[2020-03-27 06:41] VITALS: BMI 42.5
[2020-03-27 09:03] VITALS: BP 149/78
[2020-03-27 09:12] VITALS: O2SAT 96
[2020-03-27] MEDS: CLOPIDOGREL 75 MG TABLET PO SCH (09:49)
[2020-03-27] MEDS: levETIRAcetam 500 MG TAB PO SCH (09:49)
[2020-03-27] MEDS: ASPIRIN EC 81 MG TAB PO SCH (09:49)
[2020-03-27] MEDS: cloNIDine HCL 0.1 MG TAB PO SCH ×2 (09:49→13:29)
[2020-03-27] MEDS: carvediloL 25 MG TAB PO SCH (09:50)
[2020-03-27] MEDS: allopurinoL 100 MG TAB PO SCH (09:50)
[2020-03-27] MEDS: AMLODIPINE 10 MG TAB PO SCH (09:50)
[2020-03-27] MEDS: ISOSORBIDE MONO SR 30 MG TAB PO SCH (09:50)
[2020-03-27] MEDS: HEPARIN 5000 UNIT/ML 1 ML VIAL SQ SCH (09:51)
[2020-03-27 15:07] VITALS: TEMP 96.6
--- NOTE | 2020-03-27 16:09 | RAD REPORT ---
EXAM DESCRIPTION: RAD - Chest Single View - 03/27/2020 3:45 pm CLINICAL HISTORY: COPD COMPARISON: Portable March 21 TECHNIQUE: AP portable chest image was obtained 03/27/2020 3:45 pm . FINDINGS: Lung volumes are low. Interstitial opacification is present in the lung galindo, worse on t he right. No dense consolidation. Defibrillator is in place. Cardiac silhouette is enlarged. Vasculat ure within normal limits. No measurable pleural effusion and no pneumothorax. Left costophrenic angle blunting is present believed to be body habitus affects from portable imaging. No acute aortic findi ngs suspected. IMPRESSION: No focal mass or consolidation. Markings are prominent in the lung galindo, worse on the right. This could be an mild asymmetric failu re or infiltrate
--- NOTE | 2020-03-27 16:33 | PN ---
Date of Progress Note: 03/27/2020 Subjective: The patient was admitted with CHF exacerbation, hypertension, acute kidney injury second andre to cardiorenal. The patient is being on diuresis, kidney function. Objective: Vital Signs: Blood pressure 149/78, pulse of 69. Patient had good urine output of 1150, negative of 360. Chest: Crackles bilateral. Heart: S1, S2. Systolic murmur. Abdomen: Soft, nontender. Extremities: Plus edema. Laboratory Data: Sodium 142, potassium 4.1, bicarb 28, BUN 65, creatinine 3.6, GFR of 17, calcium 8. 5, phosphorus 4, magnesium 2.5. WBC 9.8, H and H 9.1/28.7. P/C ratio still pending. Serology is st ill pending. Current Medications: The patient on include Plavix, aspirin, amlodipine, carvedilol 25, clonidine 0. 2 t.i.d., isosorbide, Keppra, Lasix 40 every 8 hours, allopurinol, codeine. Assessment And Plan: 1.Chronic kidney disease with acute component secondary to cardiorenal. Still on the over volume si de. I am going to go ahead and get repeated chest x-ray for better evaluation of the fluid status fo r the patient. I am going to go ahead and increase his Lasix for the time being and we will follow u p the patient. The patient as plan for discharge will need Lasix 80 b.i.d. 2.Congestive heart failure with exacerbation. Continue current treatment. 3.Hypertension, not controlled. I am going to utilize pressor for more diuresis. RHETT/SADIE Voice ID: [id number] Report ID: [id number]
[2020-03-27] MEDS ORDERED: FUROSEMIDE 40 MG/4 ML VIAL IV SCH (17:00)
--- NOTE | 2020-03-27 22:33 | PN ---
Date of Progress Note: 03/26/2020 Mr. Elaine is a 64-year-old who was seen by Dr. Lyle and Dr. Serrano for congestive heart failure. The patient had been admitted on March 22, 2020. The patient has a history of CAD, CHF, pacemaker, defib rillator placement, chronic renal disease, elevated troponin, dyslipidemia, and diabetes. He is foll owed up normally by Dr. Agosto. He had a defibrillator initially in 2006 that was replaced in 2014. His initial pacemaker was placed in 2002. His last check was in March in about 6 months ago. He is due for another check in March of 2020. The patient today is feeling much better. No chest pain . No shortness of breath. No physical evidence of edema. I am comfortable with him going home and follow up with Dr. Agosto in the near future. SHA/SADIE Voice ID: [id number] Report ID: [id number]
== END 2020-03-27 16:27 | disposition home or self-care (01) | DRG 291 ==
LOC: ER 21:16 → ERHOLD 03-22 → 4TH 03-22 00:41 → 2ND 03-22 12:59
PROVIDERS: ADMIT Family Medicine; ATTEND Hospitalist
DX: I13.0 Hypertensive heart and chronic kidney disease with heart failure and stage 1 through stage 4 chronic kidney disease, or unspecified chronic kidney disease (principal); J96.01 Acute respiratory failure with hypoxia; I50.43 Acute on chronic combined systolic (congestive) and diastolic (congestive) heart failure; M86.8X7 Other osteomyelitis, ankle and foot; N17.9 Acute kidney failure, unspecified; N18.4 Chronic kidney disease, stage 4 (severe); I27.20 Pulmonary hypertension, unspecified; E11.22 Type 2 diabetes mellitus with diabetic chronic kidney disease; I25.10 Atherosclerotic heart disease of native coronary artery without angina pectoris; E11.69 Type 2 diabetes mellitus with other specified complication; Z95.0 Presence of cardiac pacemaker; E11.621 Type 2 diabetes mellitus with foot ulcer; L97.509 Non-pressure chronic ulcer of other part of unspecified foot with unspecified severity; E78.5 Hyperlipidemia, unspecified; E11.40 Type 2 diabetes mellitus with diabetic neuropathy, unspecified; R79.89 Other specified abnormal findings of blood chemistry; Z90.49 Acquired absence of other specified parts of digestive tract; Z87.891 Personal history of nicotine dependence; Z20.828 Contact with and (suspected) exposure to other viral communicable diseases; Z88.1 Allergy status to other antibiotic agents; Z79.4 Long term (current) use of insulin; Z79.899 Other long term (current) drug therapy
CPT/HCPCS: 36415; 71045; 76770; 78582; 80048; 80053; 81001; 82550; 82947; 83735; 83880; 84100; 84145; 84156; 84484; 84550; 85025; 86334; 86335; 93005; 93306; 93970; 94660; 94760; 96374; 99285; A9540; A9558; J1644; J1940; U0002

== ENCOUNTER 2020-04-26 23:52 | Inpatient (IN) | payer OTHER ==
--- OUTSIDE RECORDS SUMMARY | 2020-04-26 23:55 | XMS REPORT | Continuity of Care Document ---
:1955 Author Organization [facility] t Address [address] [place] [address] Care Team Providers Name Role Phone Unavailable Unavailable Unavailable Payers Payer Name Policy Type Policy Number Effective Date Expiration Date S ource Problems This patient has no known problems. Allergies, Adverse Reactions, Alerts Allergy Allergy Status Severity Reaction(s) Onset Inactive Treating Comm ents Source Name Type Date Date Clinician azithrom DA Active SD 2018- [facility] 0-22 Clear 00:00: [place] 00 [facility] azithrom DA Active SD [facility] 3-27 [facility] 00:00: e 00 [facility] Medications This patient has no known medications. Procedures This patient has no known procedures. Results Test Description Test Time Test Comments Results Result Comments Source GLUBED 2019-06-19 13:30:00 Test Item Value Reference Range Interpretation Comme nts GLUBED (test code = GLUBED) 179 mg/dL 74-106 H Performed by certified twine reeling machine operator at [facility] [id number] 06:14:00 Test Item Value Reference Range Interpretation Comments GLUBED (test code = 139 mg/dL 74-106 H Performe d by certified GLUBED) twine reeling machine operator at [facility] [id number] 04:42:00 Test Item Value Reference Range Interpretation Comments GLUBED (test code = 166 mg/dL 74-106 H Performe d by certified GLUBED) twine reeling machine operator at [facility] [id number] 21:05:00 Test Item Value Reference Range Interpretation Comments GLUBED (test code = 311 mg/dL 74-106 H Performe d by certified GLUBED) twine reeling machine operator at [facility] [id number] 17:31:00 Test Item Value Reference Range Interpretation Comments GLUBED (test code = 200 mg/dL 74-106 H Performe d by certified GLUBED) twine reeling machine operator at [facility] [id number] 12:34:00 Test Item Value Reference Range Interpretation Comments GLUBED (test code = 225 mg/dL 74-106 H Performe d by certified GLUBED) twine reeling machine operator at [facility] BASIC METABOLIC [id number] 07:17:00 Test Item Value Reference Range Interpretation [...] [facility] kidney damageor GFR <60 mL/min/1.73 m2 for >3 months. CREATININE (test code 2.80 mg/dL 0.7-1.3 H = CREAT) BUN/CREATININE RATIO 16.4 10-20 N (test code = BUN/CREA) CALCIUM (test code = 8.8 mg/dL 8.5-10.1 N CA) [id number] 05:08:00 Test Item Value Reference Range Interpretation Comments GLUBED (test code = 146 mg/dL 74-106 H Performe d by certified GLUBED) twine reeling machine operator at [facility] BASIC METABOLIC [id number] 03:11:00 Test Item Value Reference Range Interpretation [...] code = 8.7 mg/dL 8.5-10.1 N CA) [id number] 03:11:00 Test Item Value Reference Range Interpretation Comments MAGNESIUM (test code = MAG) 2.0 mg/dL 1.8-2.4 N CBC W/O [id number] 03:02:00 Test Item Value Reference Range Interpretation [...] code 8.8 fL 6.7-11.0 N = MPV) [id number] 21:06:00 Test Item Value Reference Range Interpretation Comments GLUBED (test code = 283 mg/dL 74-106 H Performe d by certified GLUBED) twine reeling machine operator at [facility] [id number] 18:12:00 Test Item Value Reference Range Interpretation Comments GLUBED (test code = 207 mg/dL 74-106 H Performe d by certified GLUBED) twine reeling machine operator at [facility] [id number] 12:02:00 Test Item Value Reference Range Interpretation Comments GLUBED (test code = 220 mg/dL 74-106 H Performe d by certified GLUBED) twine reeling machine operator at [facility] [id number] 06:47:00 Test Item Value Reference Range Interpretation Comments GLUBED (test code 142 mg/dL 74-106 H Performed by certified = GLUBED) tw[facility] reeling [facility]~ [id number] 06:29:00 Test Item Value Reference Range Interpretation Comments GLUBED (test code 212 mg/dL 74-106 H Performed by certified = GLUBED) twine reeling machine [facility] BASIC METABOLIC [id number] 02:36:00 Test Item Value Reference Range Interpretation [...] [facility] kidney damageor GFR <60 mL/min/1.73 m2 for >3 months. CREATININE (test code 3.00 mg/dL 0.7-1.3 H = CREAT) BUN/CREATININE RATIO 20.3 10-20 H (test code = BUN/CREA) CALCIUM (test code = 8.7 mg/dL 8.5-10.1 N CA) [id number] 02:36:00 Test Item Value Reference Range Interpretation Comments MAGNESIUM (test code = MAG) 2.0 mg/dL 1.8-2.4 N BASIC METABOLIC [id number] 02:21:00 Test Item Value Reference Range Interpretation [...] CALCIUM (test code = CA) mg/dL 8.5-10.1 [id number] 02:21:00 Test Item Value Reference Range Interpretation Comments MAGNESIUM (test code = MAG) mg/dL 1.8-2.4 CBC W/O [id number] 01:44:00 Test Item Value Reference Range Interpretation [...] fL 6.7-11.0 N (test code = MPV) [id number] 17:37:00 Test Item Value Reference Range Interpretation Comments GLUBED (test code = 274 mg/dL 74-106 H Performe d by certified GLUBED) twine reeling machine operator at [facility] [id number] 12:37:00 Test Item Value Reference Range Interpretation Comments GLUBED (test code = 187 mg/dL 74-106 H Performe d by certified GLUBED) twine reeling machine operator at [facility] [id number] 11:42:00 Test Item Value Reference Range Interpretation Comments GLUBED (test code = 188 mg/dL 74-106 H Performe d by certified GLUBED) twine reeling machine operator at [facility] - XR CHEST 1 [id number] 09:18:00 FAX: Reji Hernandez MD [place]: B St: [facility] FAX: Asmita David NP [phone] Name: BERTRAND YU [facility] : 1955 Age/S: 63/M [address] [facility] Unit #: [id number] Loc: V.[address] [place] [address] Phys: Asmita David NP Acct: V [id number] Dis Date: Status: ADM IN PHONE #: [phone] Exam Date: 06/16/2019 0858 FAX #: [phone] Reason: CHF EXAMS: CPT CODE: [id number] XR CHEST 1 V 47465 HISTORY: CHF. COMPARISON: Previous day. Left ICD is unchanged. Mild congestion. Smallbasilar effusions. Dependent changes. Small basilar effusions. Dependent changes. Cardiomegaly. IMPRESSION: Mild congestion is unchanged. at 0918 Reported and signed by: Anjum Helton M.D. CC: Reji Hernandez MD; Asmita David NP Technologist: ALETA MUHAMMAD JR [facility] Date/Time/By: 06/16/2019 (0928) :By: [email or web address] Orig Print D/T: S: 06/16/2019 (8953) PAGE 1 Signed ReportBASIC METABOLIC [id number] 08:56:00 Test Item Value Reference Range Interpretation [...] code = 8.5 mg/dL 8.5-10.1 N CA) [id number] 08:56:00 Test Item Value Reference Range Interpretation Comments MAGNESIUM (test code = MAG) 2.1 mg/dL 1.8-2.4 N CBC W/AUTO [id number] 08:44:00 Test Item Value Reference Range Interpretation [...] code = 0.00 K/mm3 0.0-0.1 N NRBC#) [id number] 08:27:00 Test Item Value Reference Range Interpretation Comments GLYCOSYLATED HEMOGLOBIN (HA1C) 9.7 % HbA1 4.8-6.0 H (test code = GLYHGB) ESTIMATED AVERAGE GLUCOSE (test 232 MG/DL code = EAG) [id number] 06:14:00 Test Item Value Reference Range Interpretation Comments GLUBED (test code = 134 mg/dL 74-106 H Performe d by certified GLUBED) twine reeling machine operator at [facility] [id number] 04:22:00 Test Item Value Reference Range Interpretation Comments GLUBED (test code = 146 mg/dL 74-106 H Performe d by certified GLUBED) twine reeling machine operator at [facility] [id number] 21:25:00 Test Item Value Reference Range Interpretation Comments GLUBED (test code = 179 mg/dL 74-106 H Performe d by certified GLUBED) twine reeling machine operator at [facility] UR MICROALBUMIN/CREAT [id number] 17:08:00 Test Item Value Reference Range Interpretation [...] - 300.0 Clinical albuminuria: >300.0Performed At: [facility] [address] [place], [place] [id number] Preston Reynolds MD [phone] [id number] 16:47:00 Test Item Value Reference Range Interpretation Comments GLUBED (test code = 173 mg/dL 74-106 H Performe d by certified GLUBED) twine reeling machine operator at [facility] [id number] 10:07:00 Test Item Value Reference Range Interpretation Comments GLUBED (test code = 151 mg/dL 74-106 H Performe d by certified GLUBED) twine reeling machine operator at [facility] [id number] 07:12:00 Test Item Value Reference Range Interpretation Comments TROPONIN-I (test code = TROPI) 2.350 ng/mL 0-0.045 COMMENTS TO STERILE PROCESS COORDINATOR: COLLECT 3 HOURS AFTER PREVIOUS SAMPLE- XR CHEST 1 [id number] 06:25:00 FAX: Piter Collins [phone] [place]: B St: ADM FAX: Reji Hernandez IMD Name: BERTRAND YU [facility] : 1955 Age/S: 63/M [address] Unit #: [id number] Loc: V.S06 [place] [address] Phys: Piter Collins Acct: V [id number] Dis Date: Status: ADM IN PHONE #: [phone] Exam Date: 06/15/2019510 FAX #: [phone] Reason: updatedpulm view EXAMS: CPT CODE: [id number] XR CHEST 1 V 59065 CLINICAL HISTORY: Respiratory failure, CHF TECHNIQUE: AP [...] ount the patients h istory. COMPREHENSIVE METABOLIC [id number] 06:07:00 Test Item Value Reference Range Interpretation [...] range due ALKP) to change in reagent. [id number] 06:07:00 Test Item Value Reference Range Interpretation Comments MAGNESIUM (test code = MAG) 2.2 mg/dL 1.8-2.4 N [id number] 05:29:00 Test Item Value Reference Range Interpretation Comments GLUBED (test code = 180 mg/dL 74-106 H Performe d by certified GLUBED) twine reeling machine operator at [facility] CBC W/AUTO [id number] 05:09:00 Test Item Value Reference Range Interpretation [...] code = 0.00 K/mm3 0.0-0.1 N NRBC#) [id number] 21:16:00 Test Item Value Reference Range Interpretation Comments GLUBED (test code = 186 mg/dL 74-106 H Performe d by certified GLUBED) twine reeling machine operator at [facility] [id number] 16:21:00 Test Item Value Reference Range Interpretation Comments GLUBED (test code = 229 mg/dL 74-106 H Performe d by certified GLUBED) twine reeling machine operator at [facility] UR SMEAR EOSINOPHIL [id number] 16:03:00 Test Item Value Reference Range Interpretation Comments UR SMEAR EOSINOPHIL COUNT NONE SEEN per HPF NONE SEEN (test code = EOSCTU) UR NA,[id number] 16:03:00 Test Item Value Reference Range Interpretation Comments UR NA,RANDOM (test code = NOEMÍ) 113 mmol/L 20-110 H UR CHLORIDE [id number] 16:03:00 Test Item Value Reference Range Interpretation Comments UR CHLORIDE RANDOM (test code = 118 mEq/L CLU) UR PROTEIN/CREATININE [id number] 16:03:00 Test Item Value Reference Range Interpretation [...] (test code = P/CRATIO) UR SMEAR EOSINOPHIL [id number] 15:08:00 Test Item Value Reference Range Interpretation Comments UR SMEAR EOSINOPHIL COUNT (test code per HPF NONE SEEN = EOSCTU) UR NA,[id number] 15:08:00 Test Item Value Reference Range Interpretation Comments UR NA,RANDOM (test code = NOEMÍ) 113 mmol/L 20-110 H UR CHLORIDE [id number] 15:08:00 Test Item Value Reference Range Interpretation Comments UR CHLORIDE RANDOM (test code = 118 mEq/L CLU) UR PROTEIN/CREATININE [id number] 15:08:00 Test Item Value Reference Range Interpretation [...] (test code = P/CRATIO) UR SMEAR EOSINOPHIL [id number] 14:58:00 Test Item Value Reference Range Interpretation Comments UR SMEAR EOSINOPHIL COUNT (test code per HPF NONE SEEN = EOSCTU) UR NA,[id number] 14:58:00 Test Item Value Reference Range Interpretation Comments UR NA,RANDOM (test code = NOEMÍ) 113 mmol/L 20-110 H UR CHLORIDE [id number] 14:58:00 Test Item Value Reference Range Interpretation Comments UR CHLORIDE RANDOM (test code = 118 mEq/L CLU) UR PROTEIN/CREATININE [id number] 14:58:00 Test Item Value Reference Range Interpretation Comments UR PROTEIN RANDOM (test code = PROTU) mg/dL 0.0-11.9 UR CREATININE RANDOM (test code = mg/dL 30-125 CREATU) PROTEIN/CREATININE RATIO (test code = RATIO 0.0-0.20 P/CRATIO) [id number] 13:09:00 Test Item Value Reference Range Interpretation Comments GLUBED (test code = 214 mg/dL 74-106 H Performe d by certified GLUBED) twine reeling machine operator at [facility] URINALYSIS [id number] 11:40:00 Test Item Value Reference Range Interpretation [...] 0-5 code = HYALU) Urine Source? Clean [id number] 11:38:00 Test Item Value Reference Range Interpretation Comments GLUBED (test code = 203 mg/dL 74-106 H Performe d by certified GLUBED) twine reeling machine operator at [facility] URINALYSIS [id number] 11:35:00 Test Item Value Reference Range Interpretation [...] per HPF NONE BACU) Urine Source? Clean [id number] 07:40:00 Test Item Value Reference Range Interpretation Comments TROPONIN-I (test code = TROPI) 1.380 ng/mL 0-0.045 SPECIMEN COMMENTS: 0200 LAB- XR CHEST 1 [id number] 07:30:00 FAX: Piter Collins [phone] [place]: B St: FAX: Reji Hernandez Name: BERTRAND YU [facility] : 1955 Age/S: 63/M [address] [facility] Unit #: [id number] Loc: Germaine6 [place] [address] Phys: Piter Collins Acct: V [id number] Dis Date: Status: ADM IN PHONE #: [phone] Exam Date: 06/14/2019 0649 FAX #: [phone] Reason: updatedpulm view. EXAMS: CPT CODE: [id number] XR CHEST 1 V 12897 CLINICAL HISTORY: Respiratory failure, CHF TECHNIQUE: AP chest x-ray COMPARISON: Previous day. IMPRESSION: Improved patchy bilateral airspace opacification or pulmonary congestion. Small bilateral pleural effusions. Cardiomegaly. AICD/biv entricular pacer. LOCATION: at 0730 Reported and signed by: Eliz Ocampo D.O. CC: Piter Collins; Reji Hernandez MD Technologist: Chanell Anderson(R) Trnscrd Date/Time/By: 06/14/2019 (07) : By: [email or web address] Orig Print D/T: S: 06/14/2019 (0710) PAGE 1 Signed ReportBASIC METABOLIC [id number] 03:27:00 Test Item Value Reference Range Interpretation [...] CALCIUM (test code = CA) mg/dL 8.5-10.1 [id number] 03:27:00 Test Item Value Reference Range Interpretation Comments MAGNESIUM (test code = MAG) mg/dL 1.8-2.4 BASIC METABOLIC [id number] 03:27:00 Test Item Value Reference Range Interpretation [...] GFR) formula.Chronic kidney disease is defined as [facility] kidney damageor GFR <60 mL/min/1.73 m2 for >3 months. CREATININE (test code 2.70 mg/dL 0.7-1.3 H = CREAT) BUN/CREATININE RATIO 18.8 10-20 N (test code = BUN/CREA) CALCIUM (test code = 7.3 mg/dL 8.5-10.1 L CA) [id number] 03:27:00 Test Item Value Reference Range Interpretation Comments MAGNESIUM (test code = MAG) 2.0 mg/dL 1.8-2.4 N CBC W/O [id number] 03:06:00 Test Item Value Reference Range Interpretation [...] code 8.8 fL 6.7-11.0 N = MPV) [id number] 00:03:00 Test Item Value Reference Range Interpretation Comments TROPONIN-I (test 1.480 ng/mL 0-0.045 HH RESULT VERI FIED BY code = TROPI) REPEAT ANALYSI S COMMENTS TO STERILE PROCESS COORDINATOR: COLLECT 3 HOURS AFTER PREVIOUS SAMPLE- US RETRO [id number] 18:28:00 Name: BERTRAND YU [facility] : 1955 Age/S: 63 / M [address] Unit #: [id number] Loc: [place] [address] Phys: Reji Hernandez MD Acct: [id number] Dis Date: Status: ADM IN PHONE #: [phone] Exam Date: 06/13/2019 1703 FAX #: [phone] Reason: ckd EXAMS: CPTCODE: [id number] US RETRO LTD 67350 REASON FOR EXAM: ckd EXAM ORDER DATE: [...] Left kidney is within normal limits. Location: [facility] at 1828 Reported and signed by: Yoandy Calero MD PAGE 1 Signed Report (CONTINUED) Name: BERTRAND YU [facility] : 1955 Age/S: 63 / M [address] [place] Unit #: [id number] Loc: [place] [address] Phys: Reji Hernandez MD Acct: [id number] Dis Date: Status: ADM IN PHONE #: [phone] Exam Date: 06/13/2019 1703 FAX #: [phone] Reason: ckd EXAMS: CPT CODE: [id number] [facility] [id number] <Continued> CC: Krystina Kowalski MD; Reji Hernandez MD T echnologist: Ladi Ruiz RDMS Trnscb Date/Time: 06/13/2019 (1827) [email or web address] Orig Print D/T: S: 06/13/2019 (183) Probe: PAGE 2 Signed Report PROTHROMBIN [id number] 14:57:00 Test Item Value Reference Range Interpretation [...] (2.5-3.5) IS PATIENT ON ANTICOAGULANTS? NTHROMBOPLASTIN TIME [id number] 14:57:00 Test Item Value Reference Range Interpretation Comments THROMBOPLASTIN TIME PARTIAL 47.3 seconds 25.0-36.5 H (test code = PTT) IS PATIENT ON ANTICOAGULANTS? [id number] 14:57:00 Test Item Value Reference Range Interpretation Comments D-DIMER (test 21147.00 0-500 HH RESULT VERIFIE D BY REPEAT [...] - IS PATIENT ON ANTICOAGULANTS? NB-TYPE NATRIURETIC [id number] 14:38:00 Test Item Value Reference Range Interpretation Comments B-TYPE NATRIURETIC PEPTIDE 1317.60 pgram/mL 0-100 H (test code = BNP) BASIC METABOLIC [id number] 14:36:00 Test Item Value Reference Range Interpretation [...] 8.6 mg/dL 8.5-10.1 N CA) HEPATIC FUNCTION [id number] 14:36:00 Test Item Value Reference Range Interpretation [...] code = 105 IUnit/L 26-208 N CK) [id number] 14:36:00 Test Item Value Reference Range Interpretation Comments LIPASE (test code = LIP) 241 U/L 73.0-393.0 N [id number] 14:36:00 Test Item Value Reference Range Interpretation Comments MAGNESIUM (test code = MAG) 2.3 mg/dL 1.8-2.4 N [id number] 14:36:00 Test Item Value Reference Range Interpretation Comments TROPONIN-I (test 1.890 ng/mL 0-0.045 HH Results ilda led to code = TROPI) [id number] by Azeem NOE 06/13/19 1433Cr itical results verifie d and read back by Nu rse? Y LACTIC [id number] 14:27:00 Test Item Value Reference Range Interpretation Comments LACTIC ACID (test code = LACT) 0.9 mmol/L 0.4-1.9 N BASIC METABOLIC [id number] 14:16:00 Test Item Value Reference Range Interpretation [...] code = CA) mg/dL 8.5-10.1 HEPATIC FUNCTION [id number] 14:16:00 Test Item Value Reference Range Interpretation [...] (CK) (test code = IUnit/L 26-208 CK) [id number] 14:16:00 Test Item Value Reference Range Interpretation Comments LIPASE (test code = LIP) U/L 73.0-393.0 [id number] 14:16:00 Test Item Value Reference Range Interpretation Comments MAGNESIUM (test code = MAG) mg/dL 1.8-2.4 [id number] 14:16:00 Test Item Value Reference Range Interpretation Comments TROPONIN-I (test code = TROPI) ng/mL 0-0.045 CBC W/AUTO [id number] 14:10:00 Test Item Value Reference Range Interpretation [...] 0.0-0.1 N NRBC#) - XR CHEST 1 [id number] 14:01:00 FAX: Krystina Banda [phone] [place]: St: PRE Name: BERTRAND YU [facility] : 1955 Age/S: 63/M [address] [facility] Unit#: [id number] Loc: [place] [address] Phys: Krystina Kowalski MD Acct: [id number] Dis Date: Status: PRE ER PHONE #: [phone] Exam Date: 06/13/2019 1350 FAX #: [phone] Reason: SHORTNESS OF BREATH EXAMS: CPT CODE: [id number] XR CHEST 1 V 89408 HISTORY: Shortness of breath. COMPARISON: None available. Left ICD with the leads in the right atrium and right ventricle patchy right infiltrate. Left basal infiltrate as well. Dependent changes. No effusion. Cardiomegaly. IMPRESSION: Patchy bilateral infiltrates, greater on the right. at 1401 Reported and signed by: Anjum Helton M.D. CC: Krystina Kowalski MD Technologist: PINKY KONG RT(R) Trnscrd Date/Time/By: 06/13/2019 (6520) : By: [email or web address] Orig Print D/T: S: 06/13/2019 (3129) PAGE 1 Signed ReportARTERIAL BLOOD [id number] 13:59:00 Test Item Value Reference Range Interpretation [...]
[2020-04-27 00:23] LABS: Absolute Lymphocytes (CBC) 5.2 K/uL (0.7-4.9); Basophils % 0.6 % (0-1.3); Hematocrit 37.2 % (39.6-49.0); MPV 7.7 fL (7.6-11.3); RBC Red Blood Cell Count 3.94 M/uL (4.33-5.43)
[2020-04-27] MEDS ORDERED: RSI MEDICATION KIT IV ONE (00:27)
[2020-04-27] MEDS ORDERED: NA CHLORIDE 0.9% 1,000 ML ONE (00:27)
[2020-04-27] MEDS ORDERED: MIDAZOLAM HCL 2 MG/2 ML INJ ONE ×3 (00:30→01:48)
[2020-04-27 00:32] LABS: Urine Blood 2+ (NEG); Urine Glucose NEGATIVE (NEG); Urine Protein 3+ (NEG)
[2020-04-27 00:37] LABS: Arterial Blood Carboxyhemoglob 2.1 % (0-1.5); Blood Gas Oxyhemoglobin 90.9 % (94-97); Blood O2 Saturation 93.6 % (92-98.5)
[2020-04-27] MEDS ORDERED: FENTANYL CITR 100 MCG/2 ML ONE (00:41)
[2020-04-27 00:44] LABS: Protime INR 1.23
[2020-04-27 00:57] LABS: ALT/SGPT 32 U/L (12-78); AST/SGOT 19 U/L (15-37); Albumin 3.7 g/dL (3.4-5.0); Alkaline Phosphatase 164 U/L (45-117); BUN Blood Urea Nitrogen 49 mg/dL (7-18); Bicarbonate 25 mmol/L (21-32); Bilirubin Direct 0.3 mg/dL (0-0.2); Bilirubin Total 1.1 mg/dL (0.2-1.0); CKMB Creatine Kinase MB < 1.0 ng/mL (0.3-3.6); Creatine Phosphokinase 42 U/L (39-308); Glucose Level 303 mg/dL (74-106); Lipase 126 U/L (73-393); Magnesium 2.5 mg/dL (1.8-2.4); NT PRO-BNP 24829 pg/mL (<125); Potassium 4.5 mmol/L (3.5-5.1); Protein, Total 8.3 g/dL (6.4-8.2); Sodium Level 140 mmol/L (136-145); Troponin (Emerg Dept Use Only) < 0.02 ng/mL (0.0-0.045)
[2020-04-27] MEDS ORDERED: propofoL 1,000 MG/100 ML VIAL IV ONE ×5 (01:09→21:53)
--- NOTE | 2020-04-27 01:30 | P.HP ---
Certification for Inpatient Patient admitted to: Inpatient With expected LOS: >2 Midnights Practitioner: I am a practitioner with admitting privileges, knowledge of patient current condition, hospital course, and medical plan of care. Services: Services provided to patient in accordance with Admission requirements found in Title 42 Section 412.3 of the Code of Federal Regulations Patient History Date of Service: 04/27/20 Reason for admission: Respiratory distress History of Present Illness: 64-year-old male with history of chronic systolic/diastolic congestive heart failure, chronic kidney disease stage 4, diabetes mellitus type 2, hypertension, hyperlipidemia presents emergency department for shortness of breath. EMS was called to patient's house for shortness of breath. The patient was placed on CPAP. During transport patient oxygen saturations maintain levels in the 50s and 60s. Upon arrival to the emergency department patient required intubation for profound hypoxia and respiratory distress. Patient is successfully intubated in the emergency department, saturations improved to 95%. PH on ABG is 7.22. White blood cell count and D-dimer also found to be elevated. Patient afebrile. Blood pressure within normal limits. ED provider wishes to admit patient for further evaluation and management. When I saw the patient in the emergency department he was intubated but responsive to painful stimulus. Patient was not hypotensive or tachycardic nor febrile. Do not suspect sepsis of this time. Patient be admitted for further evaluation and management. Allergies ciprofloxacin Allergy (Severe, Verified 03/22/20 05:24) Hives/Rash erythromycin base Allergy (Intermediate, Verified 03/22/20 05:24) GI upset/burning Home Medications: Amlodipine [Norvasc*] 10 mg PO DAILY 09/11/16 Glipizide [Glipizide ER] 10 mg PO BID 09/11/16 Insulin Detemir [Levemir*] 5 units SQ QIDP PRN 09/11/16 carvediloL [Coreg*] 25 mg PO BID 09/11/16 levETIRAcetam [Levetiracetam] 500 mg PO BID 09/11/16 Atorvastatin Calcium 40 mg PO DAILY 06/30/19 Clonidine HCl [Catapres*] 1 tab PO TID 06/30/19 Furosemide 40 mg PO DAILY 07/02/19 Furosemide [Lasix*] 20 mg PO BEDTIME 09/09/19 Isosorbide Mononitrate [Isosorbide Mononitrate ER] 30 mg PO DAILY 09/09/19 Ferrous Sulfate [Ferrous Sulfate*] 325 mg PO DAILY 03/22/20 clindamycin HCL [Clindamycin HCl] 300 mg PO BID 03/22/20 allopurinoL [Zyloprim*] 100 mg PO DAILY #30 tab 03/25/20 - Past Medical/Surgical History Diabetic: Yes -: Hypertension -: Diabetes mellitus type 2, insulin-dependent -: CAD with pacemaker -: Hyperlipidemia -: Diabetic neuropathy -: Chronic systolic/diastolic congestive heart failure -: Pacemaker placement -: Cholecystectomy Psychosocial/ Personal History: Patient is - Family History Father -: Heart disease Mother -: Diabetes - Social History Smoking Status: Unknown if ever smoked Alcohol use: No CD- Drugs: No Caffeine use: Yes Place of Residence: Home Review of Systems is unable to be obtained (Patient intubated) Physical Examination - Physical Exam General: Other (Intubated, patient was initially alert, oriented in severe resp iratory distress) HEENT: Atraumatic, Normocephalic, Mucous membr. moist/pink Neck: Supple Respiratory: Crackles/rales (Bilaterally), Other (Intubated, on ventilator) Cardiovascular: Regular rate/rhythm, Other (Pacemaker defibrillator in place), Edema (2+ pitting edema bilateral lower extremities) Capillary refill: <2 Seconds Gastrointestinal: Normal bowel sounds, Soft and benign Musculoskeletal: No erythema, No tenderness, No warmth, Swelling (Bilateral lower extremities) Integumentary: No tenderness/swelling, No erythema, No warmth Neurological: Normal tone, Other (Patient intubated) - Studies Laboratory Data (last 24 hrs) 04/26/20 23:50: PT 14.4 H, INR 1.23, APTT 44.2 H 04/26/20 23:50: WBC 17.3 H, Hgb 11.4 L, Hct 37.2 L, Plt Count 225 04/26/20 23:50: Sodium 140, Potassium 4.5, BUN 49 H, Creatinine 3.38 H, Glucose 303 H, Magnesium 2.5 H, Total Bilirubin 1.1 H, AST 19, ALT 32, Alkaline Phosphatase 164 H, Lipase 126 Assessment and Plan - Plan Assessment Acute on chronic respiratory failure with hypoxia secondary to acute on chronic systolic/diastolic congestive heart failure Leukocytosis and elevated D-dimer Chronic kidney disease stage 4 Diabetes mellitus type 2-insulin dependent Coronary artery disease Status post pacemaker defibrillator insertion Plan Acute on chronic respiratory failure with hypoxia secondary to acute on chronic systolic/diastolic congestive heart failure: Due to severe respiratory distress with profound hypoxia refractory to CPAP patient was intubated upon presentation to the emergency department. Patient currently maintained on ventilator. Last echocardiogram approximately 2 months ago showed ejection fraction 42% with systolic and diastolic dysfunction. Waters catheter placed in emergency department. Diuresis initiated Lasix in the emergency department. Patient be admitted to the intensive care unit for further management. Cardiology and pulmonology will be consulted. Leukocytosis and elevated D-dimer: White blood cell count 17, blood cultures obtained in the emergency department, chest x-ray appears to show pulmonary edema but will cover for possible underlying pneumonia with Rocephin/Zithromax. D-dimer elevated at greater than 7000. Will continue with Lovenox 1 milligram/kilogram once daily at this time. Patient cannot have CT angiogram to rule out pulmonary embolism, may require V/Q scan. Chronic kidney disease stage 4: Nephrology will be consulted, patient at baseline kidney function at this time. Will continue to monitor. Diabetes mellitus type 2-insulin dependent: A.c. HS Accu-Cheks, sliding scale insulin therapy. Coronary artery disease: Obtain and continue patient's home medications. Status post pacemaker defibrillator insertion: Stable Discharge Plan: Home Plan to discharge in: Greater than 2 days - Advance Directives Does patient have a Living Will: No Does patient have a Durable POA for Healthcare: No - Code Status/Comfort Care Code Status Assessed: No (Patient intubated in emergency department) Critical Care: No Time Spent Managing Pts Care (In Minutes): 55
--- NOTE | 2020-04-27 01:32 | EDPHYS ---
Physician Documentation [facility] Name: Jarod Kraft Age: 64 yrs Sex: Male : 1955 Arrival Date: 04/26/2020 Time: 23:52 Bed 4 Private MD: ED Physician Tim Martel HPI: 04/27 00:46 This 64 yrs old Male presents to ER via EMS with complaints of Breathing tw4 Difficulty. 00:46 The patient has shortness of breath at rest. Onset: The symptoms/episode began/occurred tw4 today. Duration: The symptoms are continuous, and are unchanged since they started. The patient's shortness of breath has no apparent modifying factors. Associated signs and symptoms: The patient has no apparent associated signs or symptoms. Severity of symptoms: At their worst the symptoms were mild in the emergency department the symptoms are unchanged. The patient has not experienced similar symptoms in the past. Historical: - Allergies: 00:16 Erythromycin; mg2 - Home Meds: 00:16 amlodipine 10 mg tab 1 tab once daily [Active]; atorvastatin 40 mg Oral tab 1 tab once mg2 daily [Active]; carvedilol 25 mg Oral tab 1 tab 2 times per day [Active]; clonidine HCl 0.2 mg Oral tab 1 tab 3 times per day [Active]; Coreg 3.125 mg Oral tab 1 tab every 12 hours [Active]; Xarelto 20 mg Oral tab 1 tab once daily [Active]; Micardis 80 mg Oral tab 1 tab once daily [Active]; isosorbide mononitrate 30 mg Oral Tb24 1 tab once daily [Active]; Lantus 20 units Sub-Q daily [Active]; Levemir 100 unit/mL subcutaneous soln [Active]; furosemide 40 mg Oral tab 1 tab once daily [Active]; glipizide 10 mg Oral tab 1 tab 2 times per day [Active]; levetiracetam 500 mg Oral tab 1 tab 2 times per day [Active]; Lyrica 50 mg Oral 3 times per day [Active]; metformin 1,000 mg Oral tab 1 tab 2 times per day [Active]; Norvasc 10 mg Oral tab 1 tab once daily [Active]; - PMHx: 00:16 CHF; Diabetes - IDDM; High Cholesterol; Hypertension; Irregular heart rate; Pacemaker; mg2 - Immunization history:: Flu vaccine status is unknown. - Social history:: Smoking status: unknown. ROS: 00:46 Constitutional: Negative for fever, chills, and weight loss, Eyes: Negative for injury, tw4 pain, redness, and discharge, Cardiovascular: Negative for chest pain, palpitations, and edema, Abdomen/GI: Negative for abdominal pain, nausea, vomiting, diarrhea, and constipation, Back: Negative for injury and pain, MS/Extremity: Negative for injury and deformity, Skin: Negative for injury, rash, and discoloration, Neuro: Negative for headache, weakness, numbness, tingling, and seizure. 00:46 Respiratory: Positive for shortness of breath, Negative for cough, dyspnea on exertion, hemoptysis. Exam: 00:46 Head/Face: Normocephalic, atraumatic. Chest/axilla: Normal chest wall appearance and tw4 motion. Nontender with no deformity. No lesions are appreciated. 00:46 Cardiovascular: Regular rate and rhythm with a normal S1 and S2. No gallops, murmurs, or rubs. Normal PMI, no JVD. No pulse deficits. 00:46 Back: No spinal tenderness. No costovertebral tenderness. Full range of motion. MS/ Extremity: Pulses equal, no cyanosis. Neurovascular intact. Full, normal range of motion. Neuro: Awake and alert, GCS 15, oriented to person, place, time, and situation. Cranial nerves II-XII grossly intact. Motor strength 5/5 in all extremities. Sensory grossly intact. Cerebellar exam normal. Normal gait. 00:46 Constitutional: The patient appears in obvious distress, severely distressed, pale. 00:46 Respiratory: moderate respiratory distress is noted, Respirations: asymmetrical chest movement, that is moderate, accessory muscle usage, that is moderate, Breath sounds: rales, that are moderate, are located in both bases. Vital Signs: 00:08 BP 112 / 85; Pulse 79; Resp 26; Pulse Ox 59% on CPAP; mg2 00:24 BP 137 / 61; Pulse 76; Resp 14; Temp 96.2(C); Pulse Ox 95% on 100% FiO2 ETT vent; mg2 00:30 Weight 95.25 kg (R); bb 00:45 BP 124 / 69; Pulse 75; Resp 15; Temp 96.9(C); Pulse Ox 96% on 100% FiO2 ETT vent; rv 01:00 BP 150 / 69; Pulse 77; Resp 16; Pulse Ox 97% on 100% FiO2 ETT vent; rv 01:15 BP 118 / 54; Pulse 67; Resp 14; Pulse Ox 97% on 100% FiO2 ETT vent; rv 01:30 BP 118 / 68; Pulse 69; Resp 14; Pulse Ox 96% on 100% FiO2 ETT vent; rv 01:54 BP 116 / 81; Pulse 72; Resp 15; Temp 95.9; Pulse Ox 92% on 100% FiO2 ETT vent; mg2 02:18 BP 129 / 70; Pulse 66; Resp 14; Temp 95.8; Pulse Ox 92% on 100% FiO2 ETT vent; mg2 02:30 BP 112 / 71; Pulse 66; Resp 17; Pulse Ox 95% on 100% FiO2 ETT vent; rv 02:45 BP 117 / 97; Pulse 63; Resp 14; Temp 95.6(C); Pulse Ox 97% ; rv 03:00 BP 134 / 73; Pulse 65; Resp 16; Temp 95.6; Pulse Ox 100% on 100% FiO2 ETT vent; rv MDM: 00:10 Patient medically screened. tw4 01:32 Differential diagnosis: Anemia reactive airway disease, Unstable Angina. Antibiotic tw4 administration: Not indicated. Data reviewed: vital signs, nurses notes. Data interpreted: Pulse oximetry: Interpretation: normal. Counseling: I had a detailed discussion with the patient and/or guardian regarding: the historical points, exam findings, and any diagnostic results supporting the discharge/admit diagnosis, lab results, radiology results. Physician consultation: Rigoberto Hawthorne CHIEF ADMINISTRATIVE OFFICER-C regarding admission, to the ICU, and will see patient in inpatient room, D/W midlevel Christoph. 04/27 00:00 Order name: Blood Culture Adult (2) mg2 04/27 00:00 Order name: BMP; Complete Time: mg2 04/27 00:00 Order name: CBC with Diff; Complete Time: mg2 04/27 00:00 Order name: Ckmb; Complete Time: mg2 04/27 00:00 Order name: CPK; Complete Time: mg2 04/27 00:00 Order name: D-Dimer; Complete Time: mg2 04/27 00:00 Order name: Hepatic Function; Complete Time: mg2 04/27 00:00 Order name: Lipase; Complete Time: mg2 04/27 00:00 Order name: Magnesium; Complete Time: mg2 04/27 00:00 Order name: NT PRO-BNP; Complete Time: mg2 04/27 00:00 Order name: PT-INR; Complete Time: mg2 04/27 00:00 Order name: Ptt, Activated; Complete Time: mg2 04/27 00:00 Order name: Troponin (emerg Dept Use Only); Complete Time: mg2 04/27 00:01 Order name: Blood Culture EDMS 04/27 00:00 Order name: XRAY Chest (1 view) mg2 04/27 00:11 Order name: COVID-19 tw4 04/27 00:11 Order name: Flu tw4 04/27 00:11 Order name: Strep tw4 04/27 00:12 Order name: CORONAVIRUS EDMS 04/27 00:12 Order name: Influenza Screen (A ; Complete Time: EDMS 04/27 00:12 Order name: Group A Streptococcus Rapid Sc; Complete Time: EDMS 04/27 00:18 Order name: Urine Dipstick--Ancillary (enter results); Complete Time: tt3 04/27 00:21 Order name: Lactate tt3 04/27 00:23 Order name: ABG; Complete Time: mg2 04/27 00:43 Order name: Glucose, Ancillary Testing; Complete Time: EDMS 04/27 01:24 Order name: Throat Culture EDNJ 04/27 03:08 Order name: SARS-COV-2 RT PCR EDNJ 04/27 00:00 Order name: EKG; Complete Time: 00:01 mg2 04/27 00:00 Order name: Cardiac monitoring; Complete Time: 00:12 mg2 04/27 00:00 Order name: EKG - Nurse/Tech; Complete Time: 00:12 mg2 04/27 00:00 Order name: IV Saline Lock; Complete Time: 00:12 mg2 04/27 00:00 Order name: Labs collected and sent; Complete Time: 00:12 mg2 04/27 00:00 Order name: O2 Per Protocol; Complete Time: 00:13 mg2 04/27 00:00 Order name: O2 Sat Monitoring; Complete Time: 00:13 mg2 04/27 00:11 Order name: Document PUI#; Complete Time: 00:38 tw4 04/27 00:11 Order name: Droplet/Contact Precautions; Complete Time: 00:12 tw4 04/27 00:11 Order name: Labs collected and sent; Complete Time: 00:12 tw4 04/27 00:11 [phone] ; Complete Time: 00:12 tw4 04/27 00:11 Order name: O2 Per Protocol; Complete Time: 00:12 tw4 04/27 00:22 Order name: Intubation Setup; Complete Time: 00:22 mg2 04/27 01:47 Order name: Waters; Complete Time: :47 mg2 04/27 01:47 Order name: Nasogastric Tube; Complete Time: :47 mg2 EC:52 Rate is 79 beats/min. Rhythm is regular. OH interval is normal. QRS interval is normal. tw4 QT interval is normal. Q waves are Present. Q waves are Old in leads II, III, aVF, V3, V5, V6. T waves are Normal. No ST changes noted. Clinical impression: Ventricualr paced rhythm. Interpreted by me. Reviewed by me. Administered Medications: 04/26 23:55 Drug: Succinylcholine 100 mg Route: IVP; Site: right forearm; mg2 04/27 01:06 Follow up: Response: No adverse reaction; RSI mg2 04/26 23:58 Drug: Etomidate 20 mg Route: IVP; Site: right forearm; mg2 04/27 01:06 Follow up: Response: No adverse reaction; RSI mg2 00:21 Drug: Versed 2 mg Route: IVP; Site: right forearm; mg2 01:07 Follow up: Response: No adverse reaction mg2 00:33 Drug: Versed 2 mg Route: IVP; Site: right forearm; rv 01:07 Follow up: Response: No adverse reaction mg2 00:33 Drug: fentaNYL (PF) 25 mcg Route: IVP; Site: right forearm; rv 01:07 Follow up: Response: No adverse reaction mg2 01:06 Drug: Propofol 5 mcg/kg/min Route: IV; Rate: calculated rate; Site: left forearm; mg2 01:25 Follow up: Rate change 20 mcg/kg/min rv 03:45 Follow up: Response: No adverse reaction; IV Status: Infusion continued upon admission mg2 01:45 Drug: Lasix 40 mg Route: IVP; Site: right forearm; mg2 02:11 Follow up: Response: No adverse reaction mg2 01:46 Drug: Rocuronium 5 mg Route: IVP; Site: right forearm; rv 02:11 Follow up: Response: No adverse reaction mg2 01:46 Drug: Versed 2 mg Route: IVP; Site: right forearm; rv 02:11 Follow up: Response: No adverse reaction mg2 Point of Care Testing: Blood Glucose: 00:05 Blood Glucose: 342 mg/dL; mg2 Ranges: Critical Glucose Levels:Adult <50 mg/dl or >400 mg/dl <40 mg/dl or >180 mg/dl Disposition: 04/27/20 01:32 Hospitalization ordered by Kori Baumann for Inpatient Admission. Preliminary diagnosis are Acute respiratory failure with hypoxia, Unspecified combined systolic (congestive) and diastolic (congestive) heart failure. - Bed requested for Intensive Care Unit. - Status is Inpatient Admission. mg2 - Condition is Stable. - Problem is new. - Symptoms have improved. Signatures: Dispatcher [employer] EDMS Velma Castro RN RN bb Rigoberto Hawthorne, CHIEF ADMINISTRATIVE OFFICER-C CHIEF ADMINISTRATIVE OFFICER-[facility] Tim Martel MD MD tw4 Cliff Carcamo, SHARRON RN mg2 Thompson Willis RN RN rv Corrections: (The following items were deleted from the chart) 03:46 01:32 Hospitalization Ordered by Kori Baumann MD for Inpatient Admission. Preliminary mg2 diagnosis is Acute respiratory failure with hypoxia; Unspecified combined systolic (congestive) and diastolic (congestive) heart failure. Bed requested for Intensive Care Unit. Status is Inpatient Admission. Condition is Stable. Problem is new. Symptoms have improved. tw4
--- NOTE | 2020-04-27 01:32 | ER ---
Nurse's Notes [facility] Name: Jarod Kraft Age: 64 yrs Sex: Male : 1955 Arrival Date: 04/26/2020 Time: 23:52 Bed 4 Private MD: Diagnosis: Acute respiratory failure with hypoxia;Unspecified combined systolic (congestive) and diastolic (congestive) heart failure Presentation: 04/26 23:50 Chief complaint: EMS states: he was at home having difficulty breathing, on CPAP mg2 already and O2 sats \T\ 57%. NRM was inititated and it went up to 91%. we hooked him backed up to CPAP but his saturation was dropping again below 60%. Ebola Screen: No symptoms or risks identified at this time. 23:50 Coronavirus screen: Client presents with at least one sign or symptom that may indicate mg2 coronavirus-19. Provider contacted for isolation considerations. 04/27 00:08 Initial Sepsis Screen: Does the patient meet any 2 criteria?. Initial Sepsis Screen: mg2 Does the patient have a suspected source of infection? Yes: Productive cough/pneumonia. Risk Assessment: Do you want to hurt yourself or someone else? Patient reports no desire to harm self or others. Onset of symptoms was April 27, 2020. 00:08 Method Of Arrival: EMS: [facility] mg2 00:08 Acuity: ASAF 1 mg2 Triage Assessment: 00:16 General: Appears distressed, Behavior is calm. Respiratory: Onset: The symptoms/episode mg2 began/occurred today, the patient has severe shortness of breath. Historical: - Allergies: 00:16 Erythromycin; mg2 - Home Meds: 00:16 amlodipine 10 mg tab 1 tab once daily [Active]; atorvastatin 40 mg Oral tab 1 tab once mg2 daily [Active]; carvedilol 25 mg Oral tab 1 tab 2 times per day [Active]; clonidine HCl 0.2 mg Oral tab 1 tab 3 times per day [Active]; Coreg 3.125 mg Oral tab 1 tab every 12 hours [Active]; Xarelto 20 mg Oral tab 1 tab once daily [Active]; Micardis 80 mg Oral tab 1 tab once daily [Active]; isosorbide mononitrate 30 mg Oral Tb24 1 tab once daily [Active]; Lantus 20 units Sub-Q daily [Active]; Levemir 100 unit/mL subcutaneous soln [Active]; furosemide 40 mg Oral tab 1 tab once daily [Active]; glipizide 10 mg Oral tab 1 tab 2 times per day [Active]; levetiracetam 500 mg Oral tab 1 tab 2 times per day [Active]; Lyrica 50 mg Oral 3 times per day [Active]; metformin 1,000 mg Oral tab 1 tab 2 times per day [Active]; Norvasc 10 mg Oral tab 1 tab once daily [Active]; - PMHx: 00:16 CHF; Diabetes - IDDM; High Cholesterol; Hypertension; Irregular heart rate; Pacemaker; mg2 - Immunization history:: Flu vaccine status is unknown. - Social history:: Smoking status: unknown. Screenin:23 Abuse screen: Denies threats or abuse. Denies injuries from another. Nutritional mg2 screening: No deficits noted. Tuberculosis screening: No symptoms or risk factors identified. Fall Risk IV access (20 points). Assessment: 00:17 General: see triage assessment. mg2 00:39 Cardiovascular: Rhythm is Respiratory: Airway via oral intubation Respiratory effort is mg2 labored, Respiratory pattern is regular, Breath sounds with rales bilaterally. 00:39 GI: No deficits noted. : Urine is clear. EENT: No signs and/or symptoms were reported mg2 regarding the EENT system. Derm: Skin is intact, Skin is dusky, Skin temperature is cool. 00:39 Musculoskeletal: Circulation, motion, and sensation intact. mg2 00:49 Respiratory: Airway is patent Respiratory effort is unlabored, Ventilator assessment: rv ET Tube: 7.5 Ventilator Mode: Assist Control (AC) Tidal Volume: 550 Respiratory Rate: 14 FiO2: 100%. PEEP: 5 HOB > 30 degrees. Breath sounds are clear bilaterally. 01:00 Musculoskeletal: Swelling present in right leg and left leg. rv 01:42 Reassessment: No changes from previously documented assessment. mg2 01:42 General: applied soft restraint to both upper extremity as precaution with regards to mg2 ET removal. his BP has been up and down . 01:54 Reassessment: No changes from previously documented assessment. Pain: Unable to use mg2 pain scale. Patient is intubated. 01:55 Reassessment: [phone] ( daughter in law). mg2 Vital Signs: 00:08 BP 112 / 85; Pulse 79; Resp 26; Pulse Ox 59% on CPAP; mg2 00:24 BP 137 / 61; Pulse 76; Resp 14; Temp 96.2(C); Pulse Ox 95% on 100% FiO2 ETT vent; mg2 00:30 Weight 95.25 kg (R); bb 00:45 BP 124 / 69; Pulse 75; Resp 15; Temp 96.9(C); Pulse Ox 96% on 100% FiO2 ETT vent; rv 01:00 BP 150 / 69; Pulse 77; Resp 16; Pulse Ox 97% on 100% FiO2 ETT vent; rv 01:15 BP 118 / 54; Pulse 67; Resp 14; Pulse Ox 97% on 100% FiO2 ETT vent; rv 01:30 BP 118 / 68; Pulse 69; Resp 14; Pulse Ox 96% on 100% FiO2 ETT vent; rv 01:54 BP 116 / 81; Pulse 72; Resp 15; Temp 95.9; Pulse Ox 92% on 100% FiO2 ETT vent; mg2 02:18 BP 129 / 70; Pulse 66; Resp 14; Temp 95.8; Pulse Ox 92% on 100% FiO2 ETT vent; mg2 02:30 BP 112 / 71; Pulse 66; Resp 17; Pulse Ox 95% on 100% FiO2 ETT vent; rv 02:45 BP 117 / 97; Pulse 63; Resp 14; Temp 95.6(C); Pulse Ox 97% ; rv 03:00 BP 134 / 73; Pulse 65; Resp 16; Temp 95.6; Pulse Ox 100% on 100% FiO2 ETT vent; rv ED Course: 04/26 23:50 Inserted saline lock: 18 gauge in right forearm, using aseptic technique. Blood mg2 collected. 23:52 Patient arrived in ED. bp1 23:59 Cliff Carcamo, RN is Primary Nurse. mg2 04/27 00:05 Assisted provider with intubation using 7.5 mm ETT via oral route. ET tube secured at mg2 23cm at the lips. Set up intubation tray. Intubated by Tim Martel MD Placement verified by CO2 detector w/ + color change, auscultating bilateral breath sounds, CXR, Patient tolerated well. Patient admitted, IV remains in place. 00:10 Tim Martel MD is Attending Physician. tw4 00:10 Waters cath inserted, using sterile technique, 18 Fr., by ED staff, to gravity drainage, mg2 urine specimen collected. Patient tolerated well. 00:10 Inserted saline lock: 18 gauge in left forearm, using aseptic technique. by SHARRON Garrido. mg2 00:10 NGT: inserted 16 Fr. via left nare. verified placement of air over stomach, verified mg2 return of gastric contents, Placement verified by X-ray, to intermittent suction. Returned bile. Patient tolerated well. 00:11 Triage completed. mg2 00:11 Arm band placed on. mg2 00:24 Patient has correct armband on for positive identification. stator tester on. Pulse mg2 ox on. NIBP on. Door closed. Warm blanket given. 00:51 XRAY Chest (1 view) In Process Unspecified. EDMS 01:31 Kori Baumann MD is Hospitalizing Provider. tw4 Administered Medications: 04/26 23:55 Drug: Succinylcholine 100 mg Route: IVP; Site: right forearm; mg2 04/27 01:06 Follow up: Response: No adverse reaction; RSI mg2 04/26 23:58 Drug: Etomidate 20 mg Route: IVP; Site: right forearm; mg2 04/27 01:06 Follow up: Response: No adverse reaction; RSI mg2 00:21 Drug: Versed 2 mg Route: IVP; Site: right forearm; mg2 01:07 Follow up: Response: No adverse reaction mg2 00:33 Drug: Versed 2 mg Route: IVP; Site: right forearm; rv 01:07 Follow up: Response: No adverse reaction mg2 00:33 Drug: fentaNYL (PF) 25 mcg Route: IVP; Site: right forearm; rv 01:07 Follow up: Response: No adverse reaction mg2 01:06 Drug: Propofol 5 mcg/kg/min Route: IV; Rate: calculated rate; Site: left forearm; mg2 01:25 Follow up: Rate change 20 mcg/kg/min rv 03:45 Follow up: Response: No adverse reaction; IV Status: Infusion continued upon admission mg2 01:45 Drug: Lasix 40 mg Route: IVP; Site: right forearm; mg2 02:11 Follow up: Response: No adverse reaction mg2 01:46 Drug: Rocuronium 5 mg Route: IVP; Site: right forearm; rv 02:11 Follow up: Response: No adverse reaction mg2 01:46 Drug: Versed 2 mg Route: IVP; Site: right forearm; rv 02:11 Follow up: Response: No adverse reaction mg2 Point of Care Testing: Blood Glucose: 00:05 Blood Glucose: 342 mg/dL; mg2 Ranges: Intake: Outcome: 01:32 Decision to Hospitalize by Provider. tw4 03:44 Admitted to ICU accompanied by nurse, accompanied by tech, via stretcher, room ER ICU, mg2 with oxygen, on monitor, with chart, Report called to SHARRON [place] 03:44 Condition: stable 03:44 Instructed on the need for admit. 03:46 Patient left the ED. mg2 Addendum: 05/01/2020 11:49 Addendum: COVID-19 Result: Negative result given to RN to notify pt. Other: pt is i w admitted to non-COVID ICU. Signatures: Dispatcher [employer] EDMS Velma Castro, RN SHARRON bb Tanya Conway RN Tim Alejandre MD MD tw4 Cliff Carcamo RN RN mg2 Thompson Willis RN SHARRON Alicja Guillory [facility] Corrections: (The following items were deleted from the chart) 04/27 00:14 00:08 Chief complaint: EMS states: he was at home having difficulty breathing, on CPAP mg2 already and O2 sats \T\ 57%. NRM was inititated and it went up to 91%. we hooked him backed up to CPAP but his saturation was dropping again below 60%. mg2 00:14 00:08 Coronavirus screen: Client presents with at least one sign or symptom that may mg2 indicate coronavirus-19. Provider contacted for isolation considerations. mg2 00:14 00:08 Ebola Screen: No symptoms or risks identified at this time. mg2 mg2 00:59 00:39 Respiratory: Airway via oral intubation Respiratory effort is labored, mg2 Respiratory pattern is regular, mg2
[2020-04-27] MEDS ORDERED: ROCURONIUM 50 MG/5 ML VIAL IV ONE (01:49)
[2020-04-27] MEDS ORDERED: FUROSEMIDE 40 MG/4 ML VIAL ONE ×2 (01:53→07:12)
[2020-04-27] MEDS ORDERED: HALOPERIDOL LACT 5 MG/ML INJ IV PRN (03:28)
[2020-04-27] MEDS ORDERED: NA CHLORIDE 0.9% 250 ML IV PRN (03:28)
[2020-04-27] MEDS ORDERED: ACETAMINOPHEN 650MG/RECT SUPP PR PRN (03:28)
[2020-04-27] MEDS ORDERED: FENTANYL CITR 100 MCG/2 ML IV PRN (03:28)
[2020-04-27] MEDS ORDERED: MIDAZOLAM HCL 2 MG/2 ML INJ IV PRN (03:28)
[2020-04-27] MEDS ORDERED: ONDANSETRON 4 MG/2 ML VIAL IV PRN (03:28)
[2020-04-27] MEDS ORDERED: AZITHROMYCIN IV 500 MG in NA CHLORIDE 0.9% 250 ML IVPB ONE (05:00)
[2020-04-27] MEDS ORDERED: WATER FOR INJ,STERILE 10 ML IV ONE (05:00)
[2020-04-27] MEDS ORDERED: CEFTRIAXONE 1000 MG/VIAL IVP ONE (05:00)
[2020-04-27] MEDS ORDERED: AZITHROMYCIN 500 MG INJ IVPB ONE ×2 (05:31→09:23)
[2020-04-27] MEDS ORDERED: CEFTRIAXONE/SWI 1gm 0 GM/0 ML SYR ONE (05:32)
[2020-04-27] MEDS ORDERED: NA CHLORIDE 0.9% 250 ML ONE (05:32)
[2020-04-27] MEDS: propofoL 1,000 MG/100 ML VIAL IV PRN ×4 (06:01→22:33)
[2020-04-27] MEDS ORDERED: FUROSEMIDE 40 MG/4 ML VIAL IV ONE (06:58)
[2020-04-27 06:59] LABS: Urine Appearance CLOUDY; Urine Bilirubin NEGATIVE (NEG); Urine Blood 1+ (NEG); Urine Color YELLOW; Urine Glucose NEGATIVE (NEG); Urine Protein 3+ (NEG); Urine Specific Gravity 1.015 (1.005-1.030); Urine Urobilinogen 0.2 mg/dL (0.2-1.0)
[2020-04-27 07:05] LABS: Urine Microscopic Reflex ORDER UMIC
[2020-04-27] MEDS ORDERED: FUROSEMIDE 20 MG/ 2ML VIAL ONE (07:11)
[2020-04-27] MEDS: INSULIN -REGULAR HUMAN 50 UNIT/0.5 ML ML SQ SCH ×4 (07:30→20:27)
[2020-04-27 07:38] LABS: Urine Amorphous Sediment 1+ /HPF (NONE SEEN); Urine Bacteria NONE SEEN /HPF (NONE SEEN); Urine Culture Reflex Order NOT NEEDED; Urine RBC NONE SEEN /HPF (NONE SEEN); Urine Urothelial Cells <5 /HPF (NONE SEEN)
--- NOTE | 2020-04-27 08:54 | P.PN ---
Subjective Date of Service: 04/27/20 Chief Complaint: Respiratory distress Subjective: No new changes (- reported only 200c output despite lasix IV last pm -still intubated) Physical Examination - Vital Signs Temperature: 97.6 F Blood Pressure: 104/62 Pulse: 60 Respirations: 14 Pulse Ox (%): 100 - Physical Exam General: Unresponsive (sedated ), Other (on vent -fio2 60%, peep 5) HEENT: Atraumatic, Normocephalic (orally tubed) Neck: Supple, No Thyromegaly, JVD distended Respiratory: Diminished, Crackles/rales Cardiovascular: Normal pulses, Regular rate/rhythm, Normal S1 S2, Edema Gastrointestinal: Normal bowel sounds, Soft and benign, Non-distended Musculoskeletal: No clubbing, Swelling Integumentary: Rash(es) (right mike area ) Neurological: Other (sedated ) Urinary: Waters catheter - Studies Laboratory Data (last 24 hrs) 04/26/20 23:50: PT 14.4 H, INR 1.23, APTT 44.2 H 04/26/20 23:50: WBC 17.3 H, Hgb 11.4 L, Hct 37.2 L, Plt Count 225 04/26/20 23:50: Sodium 140, Potassium 4.5, BUN 49 H, Creatinine 3.38 H, Glucose 303 H, Magnesium 2.5 H, Total Bilirubin 1.1 H, AST 19, ALT 32, Alkaline Phosphatase 164 H, Lipase 126 Microbiology Data (last 24 hrs): 04/27/20 00:16 Nasopharnyx Influenza Type A Antigen Screen - Final 04/27/20 00:16 Nasopharnyx Influenza Type B Antigen Screen - Final 04/27/20 00:16 Throat Group A Streptococcus Rapid Screen - Final Assessment & Plan - Problems (Diagnosis) (1) Diabetes Current Visit: Yes Status: Acute (2) Diabetes mellitus Current Visit: Yes Status: Acute (3) Acute respiratory failure with hypoxia Current Visit: No Status: Acute (4) CHF exacerbation Current Visit: No Status: Acute (5) Cellulitis Onset Date: 09/14/16 Current Visit: No Status: Acute Qualifiers: (6) CKD (chronic kidney disease) stage 3, GFR 30-59 ml/min Onset Date: 09/14/16 Current Visit: No Status: Chronic (7) Essential hypertension Onset Date: 09/14/16 Current Visit: No Status: Chronic (8) History of permanent cardiac pacemaker placement Current Visit: No Status: Chronic Physician Review: Patient Assessed, Agree with Above Assessment and Plan Physician Review Additional Text: Acute resp failure - hypoxic , may be due to CHF exacerbation - prior echo with EF of 40% and apical hypokinesis - low urine volume , dose lasix now again -start lasix gtt if poor response -c/w vent weaning -follow pulmonary -/w NGT suction -will plan for start tube feeding in am -follow with empirical lovenox though less likely PE -c/w sedation bundle- on propofol gtt now # Elevated D dimer - on lovenox # CKD stage IV - cr stable , follow renal - mild cr improvement may be due to fluid overload - may need dialysis for fluid removal if no marked diuresis with lasix gtt # DM -insulin sliding scale # CAD with mild Troponin increase -may be due to demand mediated ischemia -follow cardiology # s/p AICD- stable # DVT propr- on lovenox # Dispo- remain in ICU , still on vent Critical Care: Yes Time Spent Managing Pts Care (In Minutes): 45
[2020-04-27] MEDS ORDERED: FUROSEMIDE 40 MG/4 ML VIAL IV SCH (09:00)
[2020-04-27] MEDS ORDERED: FAMOTIDINE 20 MG/2 ML VIAL IV SCH ×2 (09:00)
[2020-04-27] MEDS ORDERED: CEFTRIAXONE 1 GM/NS 50 ML 1 GM/50 ML BAG IV SCH (09:00)
[2020-04-27] MEDS ORDERED: CEFTRIAXONE/SWI 1gm 1 GM/10 ML SYR ONE (09:24)
[2020-04-27] MEDS ORDERED: FAMOTIDINE 20 MG/2 ML VIAL IV ONE (09:24)
[2020-04-27] MEDS ORDERED: ENOXAPARIN 100 MG/ML SYR SQ ONE (09:24)
[2020-04-27] MEDS: ENOXAPARIN 100 MG/ML SYR SQ SCH (09:50)
--- NOTE | 2020-04-27 10:34 | RAD REPORT ---
EXAM DESCRIPTION: RAD - Chest Single View - 04/27/2020 10:22 am CLINICAL HISTORY: CHF Chest pain. COMPARISON: Chest Single View dated 04/27/2020; Chest Single View dated 03/27/2020; Chest Single View da jose juan 03/21/2020; Chest Single View dated 02/22/2020 FINDINGS: Portable technique limits examination quality. Tip of the ET tube is above the tana. Enteric tube descends into the stomach. Mild bilateral pulmon andre opacities appear unchanged. Heart is moderately enlarged with multilead pacer/defibrillator devic e present.
--- NOTE | 2020-04-27 11:26 | P.CNS ---
Date of Consult: 04/27/20 Reason for Consult: Respiratory failure CHF Chief Complaint: Respiratory failure History of Present Illness: Patient is 64 years of age with a history of heart failure chronic renal disease diabetes hypertension admitted with dyspnea feels CPAP maintained hypoxemia was intubated currently he is stable 90 agitated. Vent alert Re support is been weaned down Allergies ciprofloxacin Allergy (Severe, Verified 03/22/20 05:24) Hives/Rash erythromycin base Allergy (Intermediate, Verified 03/22/20 05:24) GI upset/burning Home Medications: Amlodipine [Norvasc*] 10 mg PO DAILY 09/11/16 Glipizide [Glipizide ER] 10 mg PO BID 09/11/16 Insulin Detemir [Levemir*] 5 units SQ QIDP PRN 09/11/16 carvediloL [Coreg*] 25 mg PO BID 09/11/16 levETIRAcetam [Levetiracetam] 500 mg PO BID 09/11/16 Atorvastatin Calcium 40 mg PO DAILY 06/30/19 Clonidine HCl [Catapres*] 1 tab PO TID 06/30/19 Furosemide 40 mg PO DAILY 07/02/19 Furosemide [Lasix*] 20 mg PO BEDTIME 09/09/19 Isosorbide Mononitrate [Isosorbide Mononitrate ER] 30 mg PO DAILY 09/09/19 Ferrous Sulfate [Ferrous Sulfate*] 325 mg PO DAILY 03/22/20 clindamycin HCL [Clindamycin HCl] 300 mg PO BID 03/22/20 allopurinoL [Zyloprim*] 100 mg PO DAILY #30 tab 03/25/20 - Past Medical/Surgical History Diabetic: Yes -: Hypertension -: Diabetes mellitus type 2, insulin-dependent -: CAD with pacemaker -: Hyperlipidemia -: Diabetic neuropathy -: Chronic systolic/diastolic congestive heart failure -: Pacemaker placement -: Cholecystectomy Psychosocial/ Personal History: Patient is - Family History Father Medical History: Heart disease Mother Medical History: Diabetes - Social History Smoking Status: Unknown if ever smoked Alcohol use: No CD- Drugs: No Caffeine use: Yes Place of Residence: Home Review of Systems is unable to be obtained Physical Examination Temp Pulse Resp BP Pulse Ox 97.6 F 60 14 104/62 100 04/27/20 09:04 04/27/20 09:04 04/27/20 09:04 04/27/20 09:04 04/27/20 09:04 General: Other (Unkempt) Respiratory: Clear to auscultation bilaterally Cardiovascular: Edema Gastrointestinal: Normal bowel sounds, Soft and benign Musculoskeletal: No clubbing Integumentary: Rash(es) (Chronic exam Stuart changes in his lower extremity) Laboratory Data (last 24 hrs) 04/26/20 23:50: PT 14.4 H, INR 1.23, APTT 44.2 H 04/26/20 23:50: WBC 17.3 H, Hgb 11.4 L, Hct 37.2 L, Plt Count 225 04/26/20 23:50: Sodium 140, Potassium 4.5, BUN 49 H, Creatinine 3.38 H, Glucose 303 H, Magnesium 2.5 H, Total Bilirubin 1.1 H, AST 19, ALT 32, Alkaline Phosphatase 164 H, Lipase 126 - Problems (1) Respiratory failure Current Visit: Yes Status: Acute Plan: Patient is 64 years of age admitted with respiratory failure significant respiratory distress years chronic renal failure BNP is significantly elevated chest x-ray appearance is of improved agree with Lasix strep is a history of heart failure pacemaker diabetic complications hypoxic hypercapnic by blood gases agree with IV Lasix strip plan to wean him off from mechanical ventilation continue with Rocephin Dc Zithromax should be able to weaned off the mechanical ventilator Qualifiers: Chronicity: acute Respiratory failure complication: hypoxia and hypercapnia Qualified Code(s): J96.01 - Acute respiratory failure with hypoxia; J96.02 - Acute respiratory failure with hypercapnia
[2020-04-27 13:29] LABS: Arterial Blood Carboxyhemoglob 2.1 % (0-1.5); Blood O2 Saturation 89.6 % (92-98.5)
--- NOTE | 2020-04-27 14:01 | RAD REPORT ---
EXAM DESCRIPTION: Chest Single View CLINICAL HISTORY: DYSPNEA COMPARISON: 09/08/2019 FINDINGS: Single frontal view of the chest. Tubes and lines: Tracheostomy with tip 5 cm above the tana. NG tube with tip below the diaphragm. L eft-sided pacemaker. Cardiomediastinal silhouette: Cardiomegaly. Lungs: Pulmonary vascular congestion with bilateral interstitial opacities. Small bilateral pleural e ffusions. No pneumothorax. Bones: Degenerative change of the shoulders and spine. Upper abdomen: No acute abnormality. IMPRESSION: 1. Cardiomegaly with pulmonary edema and small bilateral pleural effusions. 2. Endotracheal tube in appropriate position. Electronically signed by: Mazin Monroy 04/27/2020 1:07 AM CDT Due to temporary technical issues with the PACS/Fluency reporting system, reports are being signed by the in house radiologist without review as a courtesy to ensure prompt reporting. The interpreting r adiologist is fully responsible for the content of the report.
[2020-04-27] MEDS: LORazepam 2 MG/ML VIAL IV PRN (14:18)
[2020-04-27] MEDS ORDERED: LORazepam 2 MG/ML VIAL ONE (14:26)
[2020-04-27] MEDS: FUROSEMIDE 100 MG in NA CHLORIDE 0.9% 90 ML IV SCH (15:14)
--- NOTE | 2020-04-27 16:05 | P.CNS ---
Date of Consult: 04/27/20 Reason for Consult: CKD , fluid overload Chief Complaint: Respiratory failure History of Present Illness: HPI pt is intubated , Hx obtained from chart A 64-year-old man with history of CKD IIIB/IV with cr trending up from 2.6 in 2019 to 3.6 recently , with one reading of cr 3.0 in March, CAD S/P CABG, CHF S/P AICD, DM and HTN pt presented with shortess of breath , didnt improve on BiPAP , required intubation pt Cr was 3.6 , CXR with pulmonary edema, trop trending uo to 1.7 now ROS unable to obatin Physical exam general: intubated and sedated Neck; Supple, No elevated JVD hear: RRR, normal S1,2 no murmur or rub Chest: tachypnea, decreased air entry B/L Abdomen: Soft , Nt Extremities +2 edema , no ulcer A/P 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 atherosclerotic disease Cr stable avoid NSAID and contrast no need for renal replacement therapy at this time CHF exacerbation agree with lasix drip NSTEMI trend troponin cardiology evaluation Acute resp failure possibly due to fluid overload intubated pulmonary on baord prognosis guarded Allergies ciprofloxacin Allergy (Severe, Verified 03/22/20 05:24) Hives/Rash erythromycin base Allergy (Intermediate, Verified 03/22/20 05:24) GI upset/burning Home Medications: Amlodipine [Norvasc*] 10 mg PO DAILY 09/11/16 Glipizide [Glipizide ER] 10 mg PO BID 09/11/16 Insulin Detemir [Levemir*] 5 units SQ QIDP PRN 09/11/16 carvediloL [Coreg*] 25 mg PO BID 09/11/16 levETIRAcetam [Levetiracetam] 500 mg PO BID 09/11/16 Atorvastatin Calcium 40 mg PO DAILY 06/30/19 Clonidine HCl [Catapres*] 1 tab PO TID 06/30/19 Furosemide 40 mg PO DAILY 07/02/19 Furosemide [Lasix*] 20 mg PO BEDTIME 09/09/19 Isosorbide Mononitrate [Isosorbide Mononitrate ER] 30 mg PO DAILY 09/09/19 Ferrous Sulfate [Ferrous Sulfate*] 325 mg PO DAILY 03/22/20 clindamycin HCL [Clindamycin HCl] 300 mg PO BID 03/22/20 allopurinoL [Zyloprim*] 100 mg PO DAILY #30 tab 03/25/20 - Past Medical/Surgical History Diabetic: Yes -: Hypertension -: Diabetes mellitus type 2, insulin-dependent -: CAD with pacemaker -: Hyperlipidemia -: Diabetic neuropathy -: Chronic systolic/diastolic congestive heart failure -: Pacemaker placement -: Cholecystectomy Psychosocial/ Personal History: Patient is - Family History Father Medical History: Heart disease Mother Medical History: Diabetes - Social History Smoking Status: Unknown if ever smoked Alcohol use: No CD- Drugs: No Caffeine use: Yes Place of Residence: Home Physical Examination Temp Pulse Resp BP Pulse Ox 99.2 F 72 19 125/66 97 04/27/20 12:00 04/27/20 12:00 04/27/20 12:00 04/27/20 12:00 04/27/20 12:00 Laboratory Data (last 24 hrs) 04/26/20 23:50: PT 14.4 H, INR 1.23, APTT 44.2 H 04/26/20 23:50: WBC 17.3 H, Hgb 11.4 L, Hct 37.2 L, Plt Count 225 04/26/20 23:50: Sodium 140, Potassium 4.5, BUN 49 H, Creatinine 3.38 H, Glucose 303 H, Magnesium 2.5 H, Total Bilirubin 1.1 H, AST 19, ALT 32, Alkaline Phosphatase 164 H, Lipase 126
[2020-04-28] MEDS: FUROSEMIDE 100 MG in NA CHLORIDE 0.9% 90 ML IV SCH ×5 (00:31→19:06)
[2020-04-28] MEDS ORDERED: propofoL 1,000 MG/100 ML VIAL IV ONE ×3 (00:49→20:16)
[2020-04-28] MEDS ORDERED: NA CHLORIDE 0.9% 100 ML IV ONE ×2 (00:50→06:17)
[2020-04-28] MEDS ORDERED: FUROSEMIDE 40 MG/4 ML VIAL ONE ×2 (00:52→06:16)
[2020-04-28] MEDS ORDERED: ACETAMINOPHEN 650MG/RECT SUPP PR ONE (02:00)
[2020-04-28] MEDS: propofoL 1,000 MG/100 ML VIAL IV PRN ×5 (02:28→20:17)
[2020-04-28 04:59] LABS: Absolute Lymphocytes (CBC) 2.7 K/uL (0.7-4.9); Basophils % 1.2 % (0-1.3); Hematocrit 33.5 % (39.6-49.0); Lymphocytes % 20.8 % (15.3-44.8); MPV 7.3 fL (7.6-11.3); RBC Red Blood Cell Count 3.68 M/uL (4.33-5.43)
[2020-04-28 05:12] LABS: Arterial Blood Carboxyhemoglob 1.7 % (0-1.5); Blood Gas Oxyhemoglobin 90.1 % (94-97); Blood O2 Saturation 92.5 % (92-98.5)
[2020-04-28 05:20] LABS: Albumin 3.1 g/dL (3.4-5.0); Bilirubin Total 1.1 mg/dL (0.2-1.0); Potassium 3.4 mmol/L (3.5-5.1); Protein, Total 7.2 g/dL (6.4-8.2)
[2020-04-28] MEDS: INSULIN -REGULAR HUMAN 50 UNIT/0.5 ML ML SQ SCH ×4 (06:34→21:00)
--- NOTE | 2020-04-28 06:54 | EKG ---
Test Date: 2020-04-26 Test Time: 23:50:55 Robotic Weld Technician: RV MEASUREMENT RESULTS: Intervals: Rate: 79 ND: 118 QRSD: 160 QT: 452 QTc: 518 [place]: P: 6 ND: 118 QRS: -88 T: 96 INTERPRETIVE STATEMENTS: Electronic ventricular pacemaker Compared to ECG 03/21/2020 21:42:28 No significant changes Electronically Signed On 04-28-20 06:53:20 CDT by Shreyas Corbin
--- NOTE | 2020-04-28 07:36 | P.PN ---
Subjective Date of Service: 04/28/20 Chief Complaint: Respiratory failure Subjective: New changes (- STAFF REPORT STILL FEVER SPIKES -STILL INTUBATED , FIO2 INCREASED TO 80%) Physical Examination - Vital Signs Temperature: 99.1 F Blood Pressure: 142/74 Pulse: 76 Respirations: 14 Pulse Ox (%): 92 - Physical Exam General: Other (sedated , on vent , peep 5 fi02 80%) HEENT: Atraumatic, Normocephalic, PERRLA (orally tubed) Respiratory: Clear to auscultation bilaterally, Normal air movement Cardiovascular: Normal pulses, Regular rate/rhythm, Normal S1 S2 (AICD insitu ), Edema (trace pedal edema ) Gastrointestinal: Normal bowel sounds, Soft and benign, Non-distended Musculoskeletal: Clubbing, Swelling Integumentary: Rash(es) (dermatitis chnages RLE) Neurological: Normal speech, Normal strength at 5/5 x4 extr, Normal tone Urinary: Waters catheter - Studies Medications List Reviewed: Yes Assessment & Plan - Problems (Diagnosis) (1) Diabetes Current Visit: Yes Status: Acute (2) Diabetes mellitus Current Visit: Yes Status: Acute (3) Acute respiratory failure with hypoxia Current Visit: No Status: Acute (4) CHF exacerbation Current Visit: No Status: Acute (5) Cellulitis Onset Date: 09/14/16 Current Visit: No Status: Acute Qualifiers: (6) CKD (chronic kidney disease) stage 3, GFR 30-59 ml/min Onset Date: 09/14/16 Current Visit: No Status: Chronic (7) Essential hypertension Onset Date: 09/14/16 Current Visit: No Status: Chronic (8) History of permanent cardiac pacemaker placement Current Visit: No Status: Chronic Physician Review: Patient Assessed, Agree with Above Assessment and Plan Physician Review Additional Text: Acute resp failure - hypoxic , -still possible due to due to CHF exacerbation -making urine with lasix gtt now , c/w lasix gtt -CXR today appears slightly improved although noted right perihilar infiltrate - will consider increase antibiotics from Rocephin to Cefepime - but defer to Pulmonary - prior echo with EF of 40% and apical hypokinesis - c/w vent weaning -follow pulmonary -c/w NGT suction -c/w empirical lovenox for elevated d-dimer though less likely PE -c/w sedation bundle- on propofol gtt now - will repeat Covid 19 testing , prior negative # Elevated D dimer - on lovenox # CKD stage IV - cr around stable at baseline , now at 3.4 -making urine with lasix -c/w Renal team follow up s # DM -insulin sliding scale # CAD with mild Troponin increase -may be due to demand mediated ischemia -c/w cardiology follow up # s/p AICD- stable # DVT propr- on lovenox # Dispo- remain in ICU , still on vent # Nutrition - start tube feeding if able to wean down vent settings later
[2020-04-28] MEDS ORDERED: POTASSIUM CL 40 MEQ in NA CHLORIDE 0.9% 500 ML IV SCH (08:00)
--- NOTE | 2020-04-28 08:48 | RAD REPORT ---
EXAM DESCRIPTION: Nancy Single View04/28/2020 6:02 am CLINICAL HISTORY: Shortness of breath COMPARISON: April 27, 2020 FINDINGS: Endotracheal tube has its tip 5 centimeters above the tana. Nasogastric tube within the stomach Heart remains enlarged Mild improvement in the bilateral pulmonary opacities Small pleural effusions may be present Pacemaker leads in place IMPRESSION: Mild improvement in bilateral pulmonary opacities Endotracheal tube has its tip 5.5 centimeters above the tana
[2020-04-28] MEDS: CEFTRIAXONE/SWI 1gm 1 GM/10 ML SYR IVP SCH (09:00)
[2020-04-28] MEDS ORDERED: AZITHROMYCIN IV 500 MG in NA CHLORIDE 0.9% 250 ML IVPB SCH (09:00)
[2020-04-28] MEDS ORDERED: ENOXAPARIN 100 MG/ML SYR SQ ONE (09:45)
[2020-04-28] MEDS ORDERED: CEFTRIAXONE/SWI 1gm 1 GM/10 ML SYR ONE (09:45)
--- NOTE | 2020-04-28 10:10 | P.PN ---
Subjective Date of Service: 04/28/20 Chief Complaint: Respiratory failure Patient is requiring high concentration of oxygen very agitated chest x-ray appears to be clear he has cardiomegaly patient is also running a fever Review of Systems is unable to be obtained Physical Examination - Vital Signs Temperature: 99.1 F Blood Pressure: 142/74 Pulse: 76 Respirations: 14 Pulse Ox (%): 92 - Physical Exam General: Unresponsive Respiratory: Clear to auscultation bilaterally Cardiovascular: Edema Gastrointestinal: Normal bowel sounds, Soft and benign - Studies Microbiology Data (last 24 hrs): 04/27/20 00:16 Throat Culture & Sensitivity - Final NORMAL UPPER RESPIRATORY SHADIA GROWN. Medications List Reviewed: Yes Assessment & Plan - Problems (Diagnosis) (1) Respiratory failure Current Visit: Yes Status: Acute Plan: Respiratory failure his oxygen requirements have gone out of ordered a CT scan the possibility of a daniels virus infection I have added steroids and vitamin supplements for now DT of the chest without contrast blood pressure satisfactory on low-dose propofol agitated also added thymine cultures and negative patient is on a Lasix drip renal function worse Gram stain and cultures negative continue with Rocephin ventilator settings changed Qualifiers: Chronicity: acute Respiratory failure complication: hypoxia and hypercapnia Qualified Code(s): J96.01 - Acute respiratory failure with hypoxia; J96.02 - Acute respiratory failure with hypercapnia Physician Review: Patient Assessed, Agree with Above Assessment and Plan
[2020-04-28 10:19] LABS: C-Reactive Protein 99.9 mg/L (<3.00); Ferritin 117.9 ng/mL (26-388)
[2020-04-28] MEDS: ENOXAPARIN 100 MG/ML SYR SQ SCH (10:28)
--- NOTE | 2020-04-28 11:51 | P.PN ---
Subjective Date of Service: 04/28/20 Chief Complaint: Respiratory failure Subjective pt is intubated , Hx obtained from chart A 64-year-old man with history of CKD IIIB/IV with cr trending up from 2.6 in 2019 to 3.6 recently , with one reading of cr 3.0 in March, CAD S/P CABG, CHF S/P AICD, DM and HTN pt presented with shortess of breath , , required intubation today urine output improved on lasix drip, will consider to reduce to 10ml/hr tomorrow Cr improved on Fio2 80% , CXR with no significant improvement scheduled for Chest CT today cont manageent as per ICU team Physical exam general: intubated and sedated Neck; Supple, No elevated JVD hear: RRR, normal S1,2 no murmur or rub Chest: mild basal rales, increased echophony Abdomen: Soft , Nt Extremities +1 edema , no ulcer A/P 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 atherosclerotic disease Cr stable avoid NSAID and contrast no need for renal replacement therapy at this time CHF exacerbation Good UO CXR with no significant improvement scheduled for CT NSTEMI trend troponin cardiology evaluation Acute resp failure possibly due to fluid overload intubated pulmonary on board CXR with no significant improvement scheduled for CT prognosis guarded Physical Examination - Vital Signs Temperature: 99.1 F Blood Pressure: 142/74 Pulse: 76 Respirations: 14 Pulse Ox (%): 92 - Studies Microbiology Data (last 24 hrs): 04/27/20 00:16 Throat Culture & Sensitivity - Final NORMAL UPPER RESPIRATORY SHADIA GROWN. Medications List Reviewed: Yes Assessment And Plan Physician Review: Patient Assessed, Agree with Above Assessment and Plan
--- NOTE | 2020-04-28 12:33 | PN ---
Date of Progress Note: 04/28/2020 Mr. Elaine is 64, was admitted with acute renal failure, acute respiratory failure, acute on chronic s ystolic congestive heart failure. He remains intubated. Nephrology has been consulted. Pulmonology has been consulted. He is on Lovenox. He is on Lasix drip. He is on antibiotics. His creatinine is slightly worse than it was yesterday. It is 3.41. Last hemoglobin is 10.8. Echocardiogram in Ju ly of 2019 revealed severe pulmonary hypertension with an ejection fraction of 45% to 45%. At this p oint, I agree with his present regimen. He needs to continue Lasix drip. He may require dialysis, b ut we will leave this up to Nephrology. He remains in paced rhythm for now. NB/MODL Voice ID: [id number] Report ID: [id number]
[2020-04-28] MEDS: THIAMINE 200 MG/2 ML INJ IVP SCH (12:42)
[2020-04-28] MEDS ORDERED: THIAMINE 200 MG/2 ML INJ ONE (12:53)
--- NOTE | 2020-04-28 13:24 | CON ---
Date of Consultation: 04/27/2020 The patient is a 64-year-old male, who was admitted and seen on 04/27/2020. Reason For Consultation: Congestive heart failure requiring intubation. History Of Present Illness: Mr. Elaine is a 64-year-old [place] male with a very complicated p ast cardiac history and medical history. He has a history of CAD, status post CABG. He has a histor y of congestive heart failure, status post pacemaker and defibrillator. He has a history of chronic anemia, diabetes, hypertension, dyslipidemia, gout, and atrial fibrillation. Came in with respirator y failure, renal failure requiring intubation. Symptoms were rather acute. He was difficult to obta in a history from. He was intubated. Most history was obtained from his records. Past Medical History: As stated above. Allergies: HE IS ALLERGIC TO CIPROFLOXACIN AND ERYTHROMYCIN. Review of Systems: Noncontributory. Social History: Noncontributory. Family History: Noncontributory. Medications: At home include: 1.Xarelto. 2.Norvasc. 3.Lipitor. 4.Clonidine. 5.Insulin. 6.Iron. 7.Lasix. 8.Glipizide. 9.Imdur. 10.Coreg. 11.Allopurinol. Physical Examination: He was intubated. Laboratory Studies: His last blood gas showed a pO2 of 62, pH of 7.36, pCO2 of 45. His creatinine w as 3.38. His D-dimer was 7144. Glucose was 303. Troponin was 1.69. BNP was 24,829. Physical Examination: General: He was in atrial fibrillation, intubated. He was in a paced rhythm. He was afebrile. HEENT: Negative. Neck: Supple with no bruit. Chest: Reveals rales throughout. Cardiac: Reveals atrial fibrillation. No murmurs, gallops, or rubs. Abdomen: Benign. Extremities: Revealed no clubbing, cyanosis. He had 1+ edema. Diagnostic Data: As stated earlier. Impression And Plan: 1.Acute on chronic systolic congestive heart failure with respiratory failure, requiring intubation. The patient is on Lasix drip, on antibiotics. Nephrology had seen him. Pulmonology had seen him. 2.Acute renal failure. 3.History of coronary artery disease, status post coronary artery bypass graft. 4.History of congestive heart failure, status post pacemaker and defibrillator. 5.Severe pulmonary hypertension with ejection fraction of 40% to 45% by an echo in February 2020. 6.Paroxysmal atrial fibrillation, on Xarelto. 7.Hypertension, well controlled. 8.Dyslipidemia, well controlled. 9.Chronic anemia. 10.Gout. 11.Diabetes. 12.Elevated D-dimer, creatinine, BNP and troponin secondary to congestive heart failure and renal fa ilure. I agree with his regimen right now with Lasix drip and antibiotics. I agree with Renal consultation and Pulmonology consultation. The patient is definitely not a candidate for right now for any daniels ry intervention. We will follow his creatinine and follow renal recommendation. I am not so sure if the patient will need hemodialysis later. We should definitely put him on Lovenox while he is still intubated. SHA/SADIE Voice ID: [id number] Report ID: [id number]
--- NOTE | 2020-04-28 14:00 | RAD REPORT ---
EXAM DESCRIPTION: CT - Thorax Wo Con - 04/28/2020 1:47 pm CLINICAL HISTORY: sob COMPARISON: August 2019 TECHNIQUE: Computed axial tomography of the chest was obtained. Contrast was not requested. All CT scans are performed using dose optimization technique as appropriate and may include automated exposure control or mA/KV adjustment according to patient size. FINDINGS: The evaluation of mediastinum, steven and vessels is limited secondary to lack of IV contras t administration. Mild mediastinal lymphadenopathy nonspecific but probably reactive in nature. Small bilateral pleural effusions. Fgsr-[id number]-fqokrwio bibasilar atelectasis. Mild to moderate ground-glass and interstitial lung opacities within the lungs right greater than left Cardiomegaly. Endotracheal tube has its tip 5 centimeters above the tana. NG tube within the stomach IMPRESSION: Mild to moderate CHF
[2020-04-28] MEDS: METHYLPREDNISOLONE 40 MG INJ IV SCH (20:35)
[2020-04-28] MEDS ORDERED: METHYLPREDNISOLONE 40 MG INJ ONE (20:46)
[2020-04-29] MEDS: propofoL 1,000 MG/100 ML VIAL IV PRN ×5 (00:14→21:54)
[2020-04-29] MEDS ORDERED: propofoL 1,000 MG/100 ML VIAL IV ONE ×4 (00:19→22:06)
[2020-04-29 04:58] LABS: Absolute Lymphocytes (CBC) 1.9 K/uL (0.7-4.9); Basophils % 0.6 % (0-1.3); Hematocrit 33.7 % (39.6-49.0); Lymphocytes % 15.6 % (15.3-44.8); MPV 7.3 fL (7.6-11.3); RBC Red Blood Cell Count 3.71 M/uL (4.33-5.43)
[2020-04-29 05:10] LABS: Albumin 2.8 g/dL (3.4-5.0); Potassium 3.4 mmol/L (3.5-5.1); Protein, Total 7.2 g/dL (6.4-8.2)
[2020-04-29 05:59] LABS: Arterial Blood Carboxyhemoglob 1.8 % (0-1.5); Blood Gas Oxyhemoglobin 92.4 % (94-97)
[2020-04-29 06:54] LABS: Magnesium 2.3 mg/dL (1.8-2.4); Phosphorus 3.7 mg/dL (2.5-4.9)
[2020-04-29] MEDS: INSULIN -REGULAR HUMAN 50 UNIT/0.5 ML ML SQ SCH ×3 (07:30→17:41)
[2020-04-29] MEDS: CEFTRIAXONE/SWI 1gm 1 GM/10 ML SYR IVP SCH (08:25)
[2020-04-29] MEDS: THIAMINE 200 MG/2 ML INJ IVP SCH (08:25)
[2020-04-29] MEDS: ENOXAPARIN 100 MG/ML SYR SQ SCH (08:25)
[2020-04-29] MEDS ORDERED: ENOXAPARIN 100 MG/ML SYR SQ ONE (08:35)
[2020-04-29] MEDS ORDERED: CEFTRIAXONE/SWI 1gm 1 GM/10 ML SYR ONE (08:35)
[2020-04-29] MEDS ORDERED: THIAMINE 200 MG/2 ML INJ ONE (08:35)
[2020-04-29] MEDS ORDERED: METHYLPREDNISOLONE 125 MG INJ ONE ×2 (08:35→19:29)
[2020-04-29] MEDS ORDERED: METHYLPREDNISOLONE 40 MG INJ ONE (08:45)
[2020-04-29] MEDS: METHYLPREDNISOLONE 40 MG INJ IV SCH ×2 (08:48→19:31)
[2020-04-29] MEDS ORDERED: GLUCERNA 1.5 CAL 1,000 ML BOT RTH SCH (10:00)
[2020-04-29] MEDS: FUROSEMIDE 100 MG in NA CHLORIDE 0.9% 90 ML IV SCH ×2 (10:30→21:52)
--- NOTE | 2020-04-29 11:58 | P.PN ---
Subjective Date of Service: 04/29/20 Chief Complaint: Respiratory failure Condition stable no change unable to wean off the ventilator still requiring high concentrations of oxygen on a propofol drip Review of Systems is unable to be obtained Physical Examination - Vital Signs Temperature: 98.9 F Blood Pressure: 148/82 Pulse: 76 Respirations: 14 Pulse Ox (%): 99 - Physical Exam General: Unresponsive Respiratory: Clear to auscultation bilaterally Cardiovascular: Edema Gastrointestinal: Normal bowel sounds, Soft and benign - Studies Microbiology Data (last 24 hrs): 04/27/20 00:16 Throat Culture & Sensitivity - Final NORMAL UPPER RESPIRATORY SHADIA GROWN. Medications List Reviewed: Yes Assessment & Plan - Problems (Diagnosis) (1) Respiratory failure Current Visit: Yes Status: Acute Plan: Respiratory failure requiring high concentrations of oxygen patient's oxygenation seemed to have improved continue to titrate down to sat of 90% CT scan bibasilar atelectasis renal function improving white count is also declining mildly hypernatremic some ground-glass emesis today agree with stopping Lovenox echocardiogram urgently needed ordered vital signs stable Qualifiers: Chronicity: acute Respiratory failure complication: hypoxia and hypercapnia Qualified Code(s): J96.01 - Acute respiratory failure with hypoxia; J96.02 - Acute respiratory failure with hypercapnia Physician Review: Patient Assessed, Agree with Above Assessment and Plan
[2020-04-29 13:00] LABS: Hematocrit 37.8 % (39.6-49.0)
[2020-04-29] MEDS ORDERED: PANTOPRAZOLE INJ 80 MG in NA CHLORIDE 0.9% 250 ML IV SCH (13:00)
--- NOTE | 2020-04-29 16:06 | P.PN ---
Subjective Date of Service: 04/29/20 Chief Complaint: Respiratory failure Patient is intubated and sedated. He did have dark coffee-ground colored GI secretions from his NG tube. However, H&H is stable. Patient is on IV steroids & Lovenox. We have held the Lovenox. We have started him on Protonix. Hemodynamically appears to be stable. Respiratory garrison he seems to be stable. He is currently on a Lasix drip. Hopefully, it will help him to diurese more effectively. Recent echocardiogram revealed severe pulmonary hypertension with elevated right ventricular pressures and ejection fraction of 42%. Review of Systems is unable to be obtained Physical Examination - Vital Signs Temperature: 98.9 F Blood Pressure: 153/80 Pulse: 76 Respirations: 14 Pulse Ox (%): 99 - Physical Exam General: Other (Patient is intubated and sedated) Neck: Without JVD or thyroid abnormality Respiratory: Crackles/rales Cardiovascular: Regular rate/rhythm, Normal S1 S2, Systolic murmur Gastrointestinal: Normal bowel sounds, Soft and benign, Non-distended Musculoskeletal: No clubbing, No swelling Neurological: Other (Patient is sedated) - Studies Medications List Reviewed: Yes Assessment & Plan - Problems (Diagnosis) (1) Acute on chronic systolic CHF (congestive heart failure) Current Visit: Yes Status: Acute (2) Severe pulmonary arterial systolic hypertension Current Visit: Yes Status: Acute (3) Diabetes mellitus Current Visit: Yes Status: Acute (4) Acute respiratory failure with hypoxia Current Visit: No Status: Acute (5) CKD (chronic kidney disease) stage 3, GFR 30-59 ml/min Onset Date: 09/14/16 Current Visit: No Status: Chronic (6) Essential hypertension Onset Date: 09/14/16 Current Visit: No Status: Chronic (7) History of permanent cardiac pacemaker placement Current Visit: No Status: Chronic (8) Upper GI bleeding Current Visit: Yes Status: Acute - Plan Plan: 1. Monitor H&H 2. Protonix twice a day 3. Dc Lovenox 4. Continue with diuresing with Lasix drip; strict I's and O's. 5. Echo with severe pulmonary HTN; EF of 42% 6. Appreciate Pulmonary and Cardiology consultation 7. Repeat chest x-ray 8. GI/DVT prophylaxis Discharge Plan: Home Plan to discharge in: Greater than 2 days - Advance Directives Does patient have a Living Will: No Does patient have a Durable POA for Healthcare: No - Code Status/Comfort Care Code Status Assessed: Yes Code Status: Full Code Physician Review: Patient Assessed, Agree with Above Assessment and Plan Critical Care: Yes Time Spent Managing PTS Care (In Minutes): 40
[2020-04-29] MEDS ORDERED: INSULIN -REGULAR HUMAN 50 UNIT/0.5 ML ML ONE (17:52)
--- NOTE | 2020-04-29 18:19 | PN ---
Date of Progress Note: 04/29/2020 Subjective: Mr. Elaine had come in with acute on chronic systolic congestive heart failure, acute marilynn al failure, acute respiratory failure. He remains intubated, but his vital signs are stable. He was afebrile. He is in a normal rhythm. His last creatinine is 3.31. Remains on Lasix drip. Pulmonol ogy and Nephrology are following. We will continue maintaining his Lasix drip with diuresis. Watch his creatinine. I's and O's and we ight and pulmonary status. His echocardiogram was just done in February showing ejection fraction of 42% . There is really no need to repeat that. I will continue to follow him. No change in therapy for now. SHA/CHINOL Voice ID: [id number] Report ID: [id number]
[2020-04-29] MEDS: PANTOPRAZOLE 40 MG INJ IVP SCH (19:29)
[2020-04-29] MEDS ORDERED: PANTOPRAZOLE 40 MG INJ ONE (19:29)
[2020-04-30] MEDS: FUROSEMIDE 100 MG in NA CHLORIDE 0.9% 90 ML IV SCH ×5 (01:48→22:35)
[2020-04-30] MEDS ORDERED: INSULIN -REGULAR HUMAN 50 UNIT/0.5 ML ML ONE ×4 (02:13→22:55)
[2020-04-30] MEDS ORDERED: propofoL 1,000 MG/100 ML VIAL IV ONE ×2 (02:50→08:17)
[2020-04-30] MEDS: propofoL 1,000 MG/100 ML VIAL IV PRN ×2 (03:01→08:27)
[2020-04-30] MEDS: INSULIN -REGULAR HUMAN 50 UNIT/0.5 ML ML SQ SCH ×5 (03:12→23:56)
[2020-04-30 04:40] LABS: Absolute Lymphocytes (CBC) 0.9 K/uL (0.7-4.9); Basophils % 0.2 % (0-1.3); Hematocrit 38.1 % (39.6-49.0); Lymphocytes % 8.8 % (15.3-44.8); MPV 7.6 fL (7.6-11.3); RBC Red Blood Cell Count 4.15 M/uL (4.33-5.43)
[2020-04-30 04:42] LABS: Protime INR 1.18
[2020-04-30 05:07] LABS: Bilirubin Total 0.8 mg/dL (0.2-1.0); Magnesium 2.6 mg/dL (1.8-2.4); Potassium 3.7 mmol/L (3.5-5.1); Protein, Total 8.3 g/dL (6.4-8.2); Thyroid Stimulating Hormone 0.763 uIU/mL (0.360-3.740)
[2020-04-30 05:13] LABS: Blood Morphology Comment NOTED (NOT SEEN); Burr Cells 1+; Platelet Estimate ADEQ; Polychromasia 2+
[2020-04-30] MEDS: THIAMINE 200 MG/2 ML INJ IVP SCH (09:00)
[2020-04-30] MEDS: METHYLPREDNISOLONE 40 MG INJ IV SCH ×2 (09:00→20:34)
[2020-04-30] MEDS: PANTOPRAZOLE 40 MG INJ IVP SCH ×2 (09:00→20:34)
[2020-04-30] MEDS: CEFTRIAXONE/SWI 1gm 1 GM/10 ML SYR IVP SCH (09:00)
[2020-04-30] MEDS ORDERED: HEPARIN 5000 UNIT/ML 1 ML VIAL ONE ×2 (09:09→20:43)
[2020-04-30] MEDS ORDERED: METHYLPREDNISOLONE 40 MG INJ ONE (09:09)
[2020-04-30] MEDS ORDERED: PANTOPRAZOLE 40 MG INJ ONE ×2 (09:10→20:44)
[2020-04-30] MEDS ORDERED: CEFTRIAXONE/SWI 1gm 1 GM/10 ML SYR ONE (09:10)
--- NOTE | 2020-04-30 09:50 | PN ---
Date of Progress Note: 04/29/2020 Chief Complaint: Ixxwz-zz-vewmzty kidney injury. The patient is intubated. Subjective: 64-year-old man with history of chronic kidney disease stage 3B/4. Creatinine level was trending up. He developed fbpub-ox-vhkjptt kidney injury. Creatinine at baseline was 2.6 and recently has worsened up to 3.6. The patient has history of congestive heart failure, cardiorenal syndrome, CABG, diabetes mellitus, and diabetic kidney disease, hypertensive heart and kidney disease. Urine output is adequate on Lasix drip. The patient is intubated. The patient was found to have hypernatremia and IV drip solution will be changed to treat hypernatremia. Review of Systems: Unobtainable, the patient is intubated and sedated. Physical Examination: LUNGS: Diminished breath sounds at bases. HEART: S1, S2. ABDOMEN: Soft, benign. EXTREMITIES: 1+ edema. Impression And Plan: 1. Chronic kidney disease stage 3B/4 due to diabetes mellitus and atherosclerotic disease, small blood vessel disease, nephrosclerosis. Renal function has been stable over last few days. Continue to monitor renal panel. Adjust treatment with electrolytes replacement and fluid management. 2. Congestive heart failure. Urine output has improved. Continue Lasix. 3. Monitor electrolytes and plan replacement as needed. 4. Non-ST elevation myocardial infarction. Troponin level was elevated. Cardiology consultation was obtained. 5. The patient has respiratory failure. Management per primary team and Pulmonary team. I spent total 36 min including 25 min to coordinate care plan. DANIEL/SADIE Voice ID: [id number] Report ID: [id number] NATY
[2020-04-30] MEDS: HEPARIN 5000 UNIT/ML 1 ML VIAL SQ SCH ×2 (10:39→20:34)
--- NOTE | 2020-04-30 11:58 | P.PN ---
Subjective Date of Service: 05/26/20 Chief Complaint: Respiratory failure Patient is improving still on propofol drip FiO2 disease not down to 35% peep helped Review of Systems is unable to be obtained Physical Examination - Vital Signs Temperature: 98.9 F Blood Pressure: 160/83 Pulse: 15 Respirations: 78 Pulse Ox (%): 95 - Physical Exam General: Unresponsive Respiratory: Clear to auscultation bilaterally Cardiovascular: Edema Gastrointestinal: Normal bowel sounds, Soft and benign - Studies Medications List Reviewed: Yes Assessment & Plan - Problems (Diagnosis) (1) Respiratory failure Status: Acute Plan: Patient admitted with respiratory failure I suspect is due to his congestive heart failure echocardiogram pending renal function is getting worse plan to wean him off propofol and the ventilator blood pressure is stable no evidence of sepsis Dc antibiotics Qualifiers: Chronicity: acute Respiratory failure complication: hypoxia and hypercapnia Qualified Code(s): J96.01 - Acute respiratory failure with hypoxia; J96.02 - Acute respiratory failure with hypercapnia Physician Review: Patient Assessed, Agree with Above Assessment and Plan
[2020-04-30] MEDS ORDERED: SUCCINYLCHOLINE 20 MG/ML (10 ML) IV ONE (14:03)
[2020-04-30] MEDS ORDERED: ETOMIDATE 20 MG/10 ML VIAL IV ONE (14:03)
[2020-04-30] MEDS: METOLAZONE 5 MG TABLET PO SCH (15:00)
--- NOTE | 2020-04-30 15:32 | PN ---
Date of Progress Note: 04/30/2020 Subjective: The patient was admitted with over volume, respiratory failure. The patient was started on Lasix drip, has been responding very well. Physical Examination: Vital Signs: Blood pressure 155/80, pulse of 80. The patient had good urine output of 1600, negative of 300. Chest: Faint rales bilateral base. Heart: S1, S2. Regular. Abdomen: Soft, nontender. Extremities: 1+ edema. Laboratory Data: WBC 10.3, H and H 12.5/38.1. Sodium 147, potassium 3.7, bicarb 27, BUN 81, creatinine 3.6, GFR of 17, calcium of 9. BNP 45,000. Current Medications: The patient on its include; 1. Lasix drip at 20 mg p.o. per hour. 2. Tylenol. 3. Zofran. 4. Pantoprazole. Assessment And Plan: 1. Acute kidney injury on advanced chronic kidney disease, still on the over volume side. I am going to continue Lasix drip. We will add for the patient metolazone to establish better volume control. 2. Respiratory failure secondary to over volume. As above, we will add metolazone. The patient also had history of severe pulmonary hypertension. I am going to go ahead and start the patient on nitroglycerin and calcium channel adamaris and we will follow up. 3. Respiratory failure. Follow up with Pulmonary as above. time spend to coordinate the care , speaking with other Physician and team staff , face to face with the patient and placing order 35 min RHETT/SADIE Voice ID: [id number] Report ID: [id number] [facility] CENTERBrigitte
[2020-04-30] MEDS ORDERED: ENOXAPARIN 30 MG/0.3 ML SQ SCH (17:00)
--- NOTE | 2020-04-30 19:01 | PN ---
Date of Progress Note: 04/30/2020 The patient has been admitted and been followed for multiple issues including acute renal failure, ac alturas respiratory failure, acute on chronic systolic congestive heart failure, severe pulmonary hyperte nsion. Today, he is on IMV, SIMV as far as ventilation is concerned. His creatinine has gone up to 3.69. He has known ejection fraction of 42%. His last BNP has gone up to 45,873. He remained hyper tensive at 159/84, remained in sinus rhythm, paced rhythm at 84. His present regimen includes Proton ix, potassium, Rocephin, Lovenox, insulin, Lasix, and Solu-Medrol. He has been followed by Pulmonary and Nephrology. Dr. Mckeon decided to put him on metolazone in addition to the Lasix drip, also c alcium channel adamaris and nitroglycerin because of his pulmonary hypertension. We will continue to follow him along with Nephrology and Pulmonary. I agree with his present regimen. SHA/SADIE Voice ID: [id number] Report ID: [id number]
[2020-04-30] MEDS: LORazepam 2 MG/ML VIAL IV PRN (20:34)
[2020-04-30] MEDS ORDERED: METHYLPREDNISOLONE 125 MG INJ ONE (20:43)
[2020-04-30] MEDS ORDERED: LORazepam 2 MG/ML VIAL ONE (20:44)
[2020-05-01 04:24] LABS: Absolute Lymphocytes (CBC) 0.8 K/uL (0.7-4.9); Basophils % 0.3 % (0-1.3); Hematocrit 36.3 % (39.6-49.0); Lymphocytes % 5.5 % (15.3-44.8); MPV 7.8 fL (7.6-11.3); RBC Red Blood Cell Count 3.97 M/uL (4.33-5.43)
[2020-05-01 05:34] LABS: Albumin 2.8 g/dL (3.4-5.0); Bilirubin Total 0.6 mg/dL (0.2-1.0); Magnesium 2.8 mg/dL (1.8-2.4); Phosphorus 4.7 mg/dL (2.5-4.9); Potassium 3.4 mmol/L (3.5-5.1); Protein, Total 7.8 g/dL (6.4-8.2)
[2020-05-01] MEDS: INSULIN -REGULAR HUMAN 50 UNIT/0.5 ML ML SQ SCH ×5 (06:00→22:53)
[2020-05-01] MEDS ORDERED: INSULIN -REGULAR HUMAN 50 UNIT/0.5 ML ML ONE ×2 (06:15→12:25)
--- NOTE | 2020-05-01 07:26 | P.PN ---
Subjective Date of Service: 04/30/20 PATIENT REMAINS INTUBATED AND SEDATED. HOWEVER, LATER IN THE AFTERNOON AND HE WAS WEANED OFF OF SEDATION. SHE IS MORE AWAKE THIS EVENING. HE IS FOLLOWING COMMANDS. HE IS ON SIMV AND TOLERATING IT WELL. HOPEFULLY PATIENT WILL BE EXTUBATED OVER THE NEXT 24-48 HR. RENAL FUNCTION HAS SLOWLY WORSENED. [facility] BNP WAS ELEVATED SO THEY HAVE ADDED METOLAZONE. CLINICALLY, PATIENT DOES NOT APPEAR TO HAVE PULMONARY EDEMA. THIS APPEARS TO HAVE IMPROVED HE IS TOLERATING FIO2 AT 35%. CHECK A CHEST X-RAY. PATIENT'S UREMIA CONTINUES TO WORSEN AND THIS WILL NEED TO BE MONITORED ESPECIALLY ON LASIX AND METOLAZONE. Review of Systems 10-point ROS is otherwise unremarkable Physical Examination - Vital Signs Temperature: 98.8 F Blood Pressure: 156/91 Pulse: 81 Respirations: 16 Pulse Ox (%): 92 - Physical Exam General: Alert, In no apparent distress, Other (PATIENT REMAINS INTUBATED AND SEDATED) HEENT: Atraumatic, PERRLA, Other (ET TUBE IS IN PLACE ALONG WITH NG TUBE), EOMI Neck: JVD not distended Respiratory: Clear to auscultation bilaterally, Normal air movement Cardiovascular: Regular rate/rhythm, Normal S1 S2, Systolic murmur Gastrointestinal: Normal bowel sounds, Soft and benign, Non-distended, No tenderness Musculoskeletal: No clubbing, No tenderness, Swelling Integumentary: No rashes Neurological: Sensation intact, Cranial nerves 3-12 intact - Studies Medications List Reviewed: Yes Assessment & Plan - Problems (Diagnosis) (1) Acute on chronic systolic CHF (congestive heart failure) Current Visit: Yes Status: Acute (2) Severe pulmonary arterial systolic hypertension Current Visit: Yes Status: Acute (3) Diabetes mellitus Current Visit: Yes Status: Acute (4) Acute respiratory failure with hypoxia Current Visit: No Status: Acute (5) CKD (chronic kidney disease) stage 3, GFR 30-59 ml/min Onset Date: 09/14/16 Current Visit: No Status: Chronic (6) Essential hypertension Onset Date: 09/14/16 Current Visit: No Status: Chronic (7) History of permanent cardiac pacemaker placement Current Visit: No Status: Chronic (8) Upper GI bleeding Current Visit: Yes Status: Acute - Plan Plan: 1. Weaning off mechanical ventilation 2. Protonix twice a day 3. Resume Lovenox; hemoglobin remained stable 4. Continue with diuresing with Lasix drip; strict I's and O's; renal function continues to deteriorate. Patient more uremic. Will check a chest x-ray to monitor pulmonary edema. Patient remains hypernatremic and elevated creatinine. 5. Echo with severe pulmonary HTN; EF of 42% 6. Appreciate consultants recommendation 7. Repeat chest x-ray 8. GI/DVT prophylaxis Discharge Plan: Home Plan to discharge in: Greater than 2 days - Advance Directives Does patient have a Living Will: No Does patient have a Durable POA for Healthcare: No - Code Status/Comfort Care Code Status: Full Code Physician Review: Patient Assessed, Agree with Above Assessment and Plan Critical Care: Yes Time Spent Managing PTS Care (In Minutes): 35
--- NOTE | 2020-05-01 07:30 | RAD REPORT ---
EXAM DESCRIPTION: Nancy Single View05/01/2020 6:21 am CLINICAL HISTORY: Cough COMPARISON: April 28, 2020 FINDINGS: Mild improvement in bilateral pulmonary opacities Heart remains enlarged. Pacemaker leads in place. Small pleural effusions. Endotracheal and nasogastr ic tubes in good position. The heart remains enlarged IMPRESSION: Mild improvement in CHF
--- NOTE | 2020-05-01 07:33 | P.PN ---
Subjective Date of Service: 05/01/20 Patient was extubated today. Patient is clinically feeling better. Patient was diuresed extensively. Patient has some renal insufficiency at this time. Patient is also uremic. Discussed with Nephrology regarding volume status. We will make adjustments. Possibly transfer to the floor later today if okay with Pulmonary. Review of Systems 10-point ROS is otherwise unremarkable Physical Examination - Vital Signs Temperature: 98.8 F Blood Pressure: 156/91 Pulse: 81 Respirations: 16 Pulse Ox (%): 92 - Physical Exam General: Alert, In no apparent distress, Oriented x2, Confused Respiratory: Diminished, Crackles/rales Cardiovascular: Regular rate/rhythm, Normal S1 S2, Systolic murmur Gastrointestinal: Normal bowel sounds, Soft and benign, No tenderness, Distended Musculoskeletal: No clubbing, Swelling Neurological: Sensation intact, Cranial nerves 3-12 intact, Abnormal strength - Studies Medications List Reviewed: Yes Assessment & Plan - Problems (Diagnosis) (1) Acute on chronic systolic CHF (congestive heart failure) Current Visit: Yes Status: Acute (2) Severe pulmonary arterial systolic hypertension Current Visit: Yes Status: Acute (3) Diabetes mellitus Current Visit: Yes Status: Acute (4) Acute respiratory failure with hypoxia Current Visit: No Status: Acute (5) CKD (chronic kidney disease) stage 3, GFR 30-59 ml/min Onset Date: 09/14/16 Current Visit: No Status: Chronic (6) Essential hypertension Onset Date: 09/14/16 Current Visit: No Status: Chronic (7) History of permanent cardiac pacemaker placement Current Visit: No Status: Chronic (8) Upper GI bleeding Current Visit: Yes Status: Acute - Plan Plan: 1. Patient status post extubation; clinically doing better. 2. Continue Lasix drip 3. May discontinue Waters catheter in and 4. Appreciate Pulmonary and Nephrology assistance 5. Echo with severe pulmonary HTN; EF of 42% 6. Appreciate consultants recommendation 7. Monitor hemodynamics and respiratory status closely 8. GI/DVT prophylaxis Discharge Plan: Home Plan to discharge in: Greater than 2 days - Advance Directives Does patient have a Living Will: No Does patient have a Durable POA for Healthcare: No - Code Status/Comfort Care Code Status: Full Code Physician Review: Patient Assessed, Agree with Above Assessment and Plan Critical Care: No Time Spent Managing PTS Care (In Minutes): 35
[2020-05-01] MEDS ORDERED: NITROGLYCERIN 0.2 MG/HR (5 MG) PATCH TD SCH (09:00)
[2020-05-01] MEDS ORDERED: ENOXAPARIN 30 MG/0.3 ML SQ SCH (09:00)
[2020-05-01] MEDS ORDERED: THIAMINE 200 MG/2 ML INJ ONE (09:05)
[2020-05-01] MEDS ORDERED: AMLODIPINE 5 MG TAB ONE (09:05)
[2020-05-01] MEDS ORDERED: ENOXAPARIN 100 MG/ML SYR SQ ONE (09:06)
[2020-05-01] MEDS ORDERED: METHYLPREDNISOLONE 40 MG INJ ONE ×2 (09:06→21:16)
[2020-05-01] MEDS ORDERED: PANTOPRAZOLE 40 MG INJ ONE ×2 (09:06→21:16)
[2020-05-01] MEDS: PANTOPRAZOLE 40 MG INJ IVP SCH ×2 (09:12→21:06)
[2020-05-01] MEDS: METHYLPREDNISOLONE 40 MG INJ IV SCH ×2 (09:12→21:06)
[2020-05-01] MEDS: THIAMINE 200 MG/2 ML INJ IVP SCH (09:12)
[2020-05-01] MEDS: AMLODIPINE 5 MG TAB PO SCH (09:13)
[2020-05-01] MEDS: METOLAZONE 5 MG TABLET PO SCH (10:17)
[2020-05-01] MEDS: HEPARIN 5000 UNIT/ML 1 ML VIAL SQ SCH (10:17)
[2020-05-01] MEDS ORDERED: HEPARIN 5000 UNIT/ML 1 ML VIAL ONE (10:24)
[2020-05-01] MEDS: FUROSEMIDE 100 MG in NA CHLORIDE 0.9% 90 ML IV SCH ×3 (12:01→21:14)
[2020-05-01] MEDS: SILDENAFIL CITRATE 20 MG TABLET PO SCH (12:28)
[2020-05-01] MEDS ORDERED: ENOXAPARIN 100 MG/ML SYR SQ SCH (12:30)
--- NOTE | 2020-05-01 12:33 | P.PN ---
Subjective Date of Service: 05/01/20 Chief Complaint: Respiratory failure Patient is improving he is more alert responsive cooperative wants to be extubated Review of Systems is unable to be obtained Physical Examination - Vital Signs Temperature: 99.3 F Blood Pressure: 158/83 Pulse: 95 Respirations: 13 Pulse Ox (%): 91 - Physical Exam General: Alert, Cooperative Respiratory: Clear to auscultation bilaterally Cardiovascular: Regular rate/rhythm, Edema Gastrointestinal: Normal bowel sounds, Soft and benign - Studies Medications List Reviewed: Yes Assessment & Plan - Problems (Diagnosis) (1) Respiratory failure Current Visit: Yes Status: Acute Plan: Patient admitted with respiratory failure he appears to have severe pulmonary hypertension on the echocardiogram last echocardiogram was done over a month ago will need to be repeated was no evidence of pulmonary embolism at that time over he needs to be fully anti coagulated I have also started him on some low-dose sildenafil hemoglobin very stable plan to wean and extubate today patient's chest x-rays clear although his BNP is not significantly more elevated is probably from right ventricular strain BUN is worse hypernatremia as also slightly worse Qualifiers: Chronicity: acute Respiratory failure complication: hypoxia and hypercapnia Qualified Code(s): J96.01 - Acute respiratory failure with hypoxia; J96.02 - Acute respiratory failure with hypercapnia Physician Review: Patient Assessed, Agree with Above Assessment and Plan
--- NOTE | 2020-05-01 13:10 | RAD REPORT ---
EXAM DESCRIPTION: US - Extrem Venous W Compress Mumtaz - 05/01/2020 1:03 pm CLINICAL HISTORY: Rule out DVT Bilateral leg edema and swelling. COMPARISON: Extrem Venous W Compress Mumtaz dated 03/23/2020 TECHNIQUE: Real-time sonographic interrogation of the left and right lower extremity deep venous sys tems was performed. FINDINGS: Normal compressibility, flow augmentation, phasic flow and spontaneous flow is identified in both the left and right lower extremity deep venous systems. IMPRESSION: No sonographic evidence of left or right lower extremity deep venous thrombosis.
--- NOTE | 2020-05-01 14:29 | P.PN ---
Subjective Date of Service: 05/01/20 Chief Complaint: Respiratory failure Subjective pt is intubated , Hx obtained from chart A 64-year-old man with history of CKD IIIB/IV with cr trending up from 2.6 in 2018 to 3.6 recently , with one reading of cr 3.0 in March, CAD S/P CABG, CHF S/P AICD, DM and HTN pt presented with shortness of breath , , required intubation today Pt extubated RFt stable, edema much improved will reduce lasix to 10mg/hr high sodium , now started on liquid diet , will hold on D5W for now Physical exam general: awake and alert , NAD Neck; Supple, No elevated JVD hear: RRR, normal S1,2 no murmur or rub Chest: mild Lt basal rales Abdomen: Soft , Nt Extremities No edema , no ulcer A/P 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 atherosclerotic disease Cr stable avoid NSAID and contrast CHF exacerbation Good UO improving will reduce IV lasix Acute resp failure due to fluid overload and pneumonia extubated now Total time spent 40min Physical Examination - Vital Signs Temperature: 99.3 F Blood Pressure: 158/83 Pulse: 95 Respirations: 13 Pulse Ox (%): 91 - Studies Medications List Reviewed: Yes Assessment And Plan Physician Review: Patient Assessed, Agree with Above Assessment and Plan
[2020-05-02 05:20] LABS: Absolute Lymphocytes (CBC) 1.1 K/uL (0.7-4.9); Basophils % 0.9 % (0-1.3); Hematocrit 37.8 % (39.6-49.0); Lymphocytes % 8.1 % (15.3-44.8); MPV 7.5 fL (7.6-11.3); RBC Red Blood Cell Count 4.17 M/uL (4.33-5.43)
[2020-05-02 05:33] LABS: Protime INR 1.1
[2020-05-02 06:07] LABS: Albumin 3.1 g/dL (3.4-5.0); Phosphorus 5.4 mg/dL (2.5-4.9); Potassium 3.3 mmol/L (3.5-5.1)
--- NOTE | 2020-05-02 06:19 | PN ---
Date of Progress Note: 05/01/2020 Subjective: Mr. Elaine has been followed for respiratory failure, acute on chronic systolic congestiv e heart failure, renal failure. He has been followed by Pulmonology and Nephrology and myself. Toda y 05/01/2020, the patient's weight is 230 pounds. His vital signs are stable. His blood pressure is 138/66, pulse is 72, his respiratory rate is 20. His temperature is 98. He is in a paced rhythm. His last glucose was 376. He is on nasal cannula right now at 5 L with a 90% O2 saturation. His las t creatinine is 3.67. Last hemoglobin is 11.6. His creatinine is basically unchanged from the day b efore. His last potassium was 3.4. His last BNP is 60,678 and that has actually been increasing. Todd akers is known to have severe pulmonary hypertension and an ejection fraction of 40% to 45%. He remains on IV Lasix. He is having a good urine output. He is being presently treated with amlodipine and ca lcium channel adamaris to hopefully reduce his pulmonary pressure. He is on insulin. He is on subcu heparin and Lasix drip. He remains on steroid, antibiotics, Protonix, sildenafil was also started fo r his pulmonary hypertension. He remains on metolazone. We will continue to follow him. NB/MODL Voice ID: [id number] Report ID: [id number]
--- NOTE | 2020-05-02 08:24 | P.PN ---
Subjective Date of Service: 05/02/20 Patient remains on an insulin drip. We will continue to diurese the patient. He is making much more adequate urine output, and he is possibly able to get Waters catheter removed. He is not eating well, and he is still weak. Will need to get physical therapy. Review of Systems 10-point ROS is otherwise unremarkable Physical Examination - Vital Signs Temperature: 98.8 F Blood Pressure: 156/91 Pulse: 81 Respirations: 16 Pulse Ox (%): 92 - Physical Exam General: Alert, In no apparent distress, Oriented x3 Respiratory: Crackles/rales Cardiovascular: Regular rate/rhythm, Normal S1 S2, Systolic murmur Gastrointestinal: Normal bowel sounds, Soft and benign, Non-distended Musculoskeletal: No clubbing, No swelling - Studies Microbiology Data (last 24 hrs): 04/27/20 00:05 Blood - Blood Aerobic Blood Culture - Final No growth in 5 days. 04/27/20 00:05 Blood - Blood Anaerobic Blood Culture - Final No growth in 5 days. 04/26/20 23:50 Blood - Blood Aerobic Blood Culture - Final No growth in 5 days. 04/26/20 23:50 Blood - Blood Anaerobic Blood Culture - Final No growth in 5 days. Medications List Reviewed: Yes Assessment & Plan - Problems (Diagnosis) (1) Acute on chronic systolic CHF (congestive heart failure) Current Visit: Yes Status: Acute (2) Severe pulmonary arterial systolic hypertension Current Visit: Yes Status: Acute (3) Diabetes mellitus Current Visit: Yes Status: Acute (4) Acute respiratory failure with hypoxia Current Visit: No Status: Acute (5) CKD (chronic kidney disease) stage 3, GFR 30-59 ml/min Onset Date: 09/14/16 Current Visit: No Status: Chronic (6) Essential hypertension Onset Date: 09/14/16 Current Visit: No Status: Chronic (7) History of permanent cardiac pacemaker placement Current Visit: No Status: Chronic (8) Upper GI bleeding Current Visit: Yes Status: Acute - Plan Plan: Continue with plan of care as mentioned below 1. Patient was extubated and is doing well. Will need some physical therapy. Advance diet as tolerated 2. Continue Lasix drip 3. Nephrology wants to monitor with Waters catheter 4. Appreciate Pulmonary and Nephrology assistance 5. Echo with severe pulmonary HTN; EF of 42% 6. GI/DVT prophylaxis - Advance Directives Does patient have a Living Will: No Does patient have a Durable POA for Healthcare: No - Code Status/Comfort Care Code Status: Full Code Physician Review: Patient Assessed, Agree with Above Assessment and Plan
[2020-05-02] MEDS: PANTOPRAZOLE 40 MG INJ IVP SCH ×2 (09:25→23:50)
[2020-05-02] MEDS: THIAMINE 200 MG/2 ML INJ IVP SCH (09:25)
[2020-05-02] MEDS: AMLODIPINE 5 MG TAB PO SCH (09:25)
[2020-05-02] MEDS: ENOXAPARIN 100 MG/ML SYR SQ SCH (09:25)
[2020-05-02] MEDS: METHYLPREDNISOLONE 40 MG INJ IV SCH (09:25)
[2020-05-02] MEDS: INSULIN -REGULAR HUMAN 50 UNIT/0.5 ML ML SQ SCH ×4 (09:27→22:35)
[2020-05-02] MEDS: FUROSEMIDE 100 MG in NA CHLORIDE 0.9% 90 ML IV SCH ×4 (09:28→23:09)
[2020-05-02] MEDS ORDERED: THIAMINE 200 MG/2 ML INJ ONE (09:28)
[2020-05-02] MEDS ORDERED: PANTOPRAZOLE 40 MG INJ ONE (09:28)
[2020-05-02] MEDS ORDERED: AMLODIPINE 5 MG TAB ONE (09:28)
[2020-05-02] MEDS ORDERED: METHYLPREDNISOLONE 40 MG INJ ONE (09:28)
[2020-05-02] MEDS ORDERED: ENOXAPARIN 100 MG/ML SYR SQ ONE (09:28)
[2020-05-02] MEDS: METOLAZONE 5 MG TABLET PO SCH (09:30)
[2020-05-02] MEDS: SILDENAFIL CITRATE 20 MG TABLET PO SCH (09:30)
[2020-05-02] MEDS ORDERED: POTASSIUM CL SA 10 MEQ TAB PO ONE ×2 (10:55→12:23)
--- NOTE | 2020-05-02 11:31 | PN ---
Date of Progress Note: 05/02/2020 Subjective: The patient was admitted with respiratory failure, over volume. The patient had been on the vent, weaned. The patient on Lasix drip. Kidney function stays stable. Objective: Vital Signs: Blood pressure 125/85, pulse of 80. The patient had good urine output of 4 700, negative of 4 L. Chest: Faint rales bilateral. Heart: S1, S2. Systolic murmur. Abdomen: Soft, nontender. Extremities: Trace edema. Neuro: Alert, oriented. Nonfocal. Laboratory Data: Chest x-ray cardiomegaly with congestion. WBC 13.6, H and H 12.2/37.8, platelet 23 5. Sodium 151, potassium 3.3, bicarb 35, BUN 121, creatinine 3.6. GFR of 17. Calcium 9.3, phos 5.4 , magnesium 3. BNP 84,000. Current Medications: The patient is on are Lasix drip, hydralazine, amlodipine, pantoprazole, Solu-M edrol, fentanyl. Assessment And Plan: 1.Acute kidney injury on advanced chronic kidney disease secondary to cardiorenal, nonoliguric, sign ificant elevation in the BUN. I am going to continue the patient on the Lasix drip. I am going to a dd metolazone as the patient starts to have oral and we will follow up the patient. We will increase the Lasix to 20 mg. I am going to go ahead and decrease the prednisone to once a day to decrease se nuvia disproportion in the BUN and creatinine. I am going to send for uric acid to try to evaluate th e fluid status for the patient better and we will follow up. 2.Hypertension. We will utilize blood pressure for more ultrafiltration. 3.Hypernatremia. I am going to start the patient on D5. Continue diuresis. We will monitor the pa tient. 4.Hypokalemia. We will supplement cautiously given the advanced kidney disease. 5.Congestive heart failure with exacerbation. We will try to optimize fluid status better. 6.Respiratory failure, weaned from the vent. We will follow up with pulmonary. Time spent coordinating the care, speaking with the consulting, placing the order, [id number] commu nication with the patient, discussing the case with the patient and staff. The patient agreed on the plan. Total time 35 minutes. MA/CHINOL Voice ID: [id number] Report ID: [id number]
--- NOTE | 2020-05-02 12:13 | P.PN ---
Subjective Date of Service: 05/26/20 Chief Complaint: Respiratory failure Patient is doing much better was extubated yesterday a nasal cannula oxygen alert oriented responsive cooperative Review of Systems General: Weakness Respiratory: Shortness of Breath Physical Examination - Vital Signs Temperature: 98.8 F Blood Pressure: 129/66 Pulse: 76 Respirations: 14 Pulse Ox (%): 92 - Physical Exam General: Alert, Oriented x3 Respiratory: Clear to auscultation bilaterally Cardiovascular: Edema - Studies Microbiology Data (last 24 hrs): 04/27/20 00:05 Blood - Blood Aerobic Blood Culture - Final No growth in 5 days. 04/27/20 00:05 Blood - Blood Anaerobic Blood Culture - Final No growth in 5 days. 04/26/20 23:50 Blood - Blood Aerobic Blood Culture - Final No growth in 5 days. 04/26/20 23:50 Blood - Blood Anaerobic Blood Culture - Final No growth in 5 days. Medications List Reviewed: Yes Assessment & Plan - Problems (Diagnosis) (1) Respiratory failure Status: Acute Plan: Patient is doing much better he was extubated yesterday increase in his BUN and hypernatremia address by Nephrology been a progressive increase in his BNP lower extremity venous Doppler is negative for DVT severe pulmonary hypertension. Patient is on sildenafil seen by Nephrology the urine is slightly worse can Dc s teroid patient is stable to be transferred to an LTAC cultures all negative Qualifiers: Chronicity: acute Respiratory failure complication: hypoxia and hypercapnia Qualified Code(s): J96.01 - Acute respiratory failure with hypoxia; J96.02 - Acute respiratory failure with hypercapnia Physician Review: Patient Assessed, Agree with Above Assessment and Plan
[2020-05-02] MEDS: D5W 1,000 ML IV SCH (12:14)
[2020-05-02] MEDS ORDERED: D5W 1,000 ML IV ONE (12:23)
--- NOTE | 2020-05-02 13:01 | PN ---
Date of Progress Note: 05/02/2020 Subjective: Mr. Elaine has been followed for respiratory failure, renal failure, acute on chronic sys tolic congestive heart failure, severe pulmonary hypertension. He has had a pacemaker. He has impro blanca since he has been in the hospital. Objective: VITAL SIGNS: He is now on nasal cannula and only 94% saturation. GENERAL: His vital signs are stable. He is afebrile. His he is feeling better. Laboratory Data: His last creatinine is 3.66. Medications: He is now on sildenafil, metolazone, Lasix, Lovenox, and antibiotics. Plan: We will continue his present regimen. No change in therapy is recommended at this point. SHA/SADIE Voice ID: [id number] Report ID: [id number]
[2020-05-02] MEDS ORDERED: D50W 25 GM/50 ML SYRINGE/VIAL IV PRN (17:25)
[2020-05-02] MEDS ORDERED: GLUCAGON 1 MG/VIAL IM PRN (17:25)
[2020-05-02] MEDS ORDERED: ACETAMINOPHEN 160 MG/5 ML UCUP ONE (19:30)
[2020-05-02] MEDS: HYDRALAZINE HCL 20 MG/ML VIAL IV PRN (22:39)
[2020-05-03] MEDS: FUROSEMIDE 100 MG in NA CHLORIDE 0.9% 90 ML IV SCH ×5 (04:06→18:47)
[2020-05-03] MEDS: HYDRALAZINE HCL 20 MG/ML VIAL IV PRN ×2 (04:12→20:37)
[2020-05-03 04:30] LABS: Albumin 3.3 g/dL (3.4-5.0); Phosphorus 3.9 mg/dL (2.5-4.9); Potassium 3.2 mmol/L (3.5-5.1); Uric Acid 10.4 mg/dL (3.5-7.2)
[2020-05-03] MEDS: ENOXAPARIN 100 MG/ML SYR SQ SCH (08:33)
[2020-05-03] MEDS: AMLODIPINE 5 MG TAB PO SCH (08:33)
[2020-05-03] MEDS: PANTOPRAZOLE 40 MG INJ IVP SCH ×2 (08:33→20:37)
[2020-05-03] MEDS: METOLAZONE 5 MG TABLET PO SCH (08:33)
[2020-05-03] MEDS: THIAMINE 200 MG/2 ML INJ IVP SCH (08:33)
[2020-05-03] MEDS: D5W 1,000 ML IV SCH (08:34)
[2020-05-03] MEDS: INSULIN -REGULAR HUMAN 50 UNIT/0.5 ML ML SQ SCH ×4 (08:35→20:36)
[2020-05-03] MEDS ORDERED: METHYLPREDNISOLONE 40 MG INJ IV SCH (09:00)
[2020-05-03] MEDS: SILDENAFIL CITRATE 20 MG TABLET PO SCH (10:19)
[2020-05-03] MEDS ORDERED: POTASSIUM CL SA 10 MEQ TAB PO ONE (12:00)
[2020-05-03] MEDS ORDERED: D50W 25 GM/50 ML SYRINGE/VIAL IV PRN (12:35)
[2020-05-03] MEDS ORDERED: GLUCAGON 1 MG/VIAL IM PRN (12:35)
--- NOTE | 2020-05-03 12:56 | P.PN ---
Subjective Date of Service: 05/03/20 Chief Complaint: Respiratory failure Subjective pt is intubated , Hx obtained from chart A 64-year-old man with history of CKD IIIB/IV with cr trending up from 2.6 in 2018 to 3.6 recently , with one reading of cr 3.0 in March, CAD S/P CABG, CHF S/P AICD, DM and HTN pt presented with shortness of breath , , required intubation today Corrected sodium ~147 , will cont D5W for now will start on lantus pt off steroids,Bun stable from yesterday will consider to reduce lasix rate tomorrow , if Bun cont to trend up Physical exam general: awake and alert , NAD Neck; Supple, No elevated JVD hear: RRR, normal S1,2 no murmur or rub Chest: mild Lt basal rales Abdomen: Soft , Nt Extremities No edema , no ulcer A/P 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 atherosclerotic disease Cr stable , but pt with disproportionate Bun/Cr ratio , was on steroids, now DC , peripheral edema resolved, still have pulmonary edema, will consider to reduce IV lasix rate avoid NSAID and contrast pending LTAC acceptance CHF exacerbation Good UO cont lasix and metolazone , will consider to reduce rate Hypernatremia due to poor oral intake and diuresis will cont D5w for one more day BS cpntroll DM will add lantus Acute resp failure due to fluid overload and pneumonia extubated now Total time spent 40min Physical Examination - Vital Signs Temperature: 97.2 F Blood Pressure: 169/96 Pulse: 72 Respirations: 16 Pulse Ox (%): 97 - Studies Medications List Reviewed: Yes Assessment And Plan Physician Review: Patient Assessed, Agree with Above Assessment and Plan
[2020-05-03] MEDS ORDERED: INSULIN -REGULAR HUMAN 50 UNIT/0.5 ML ML IV ONE (17:45)
[2020-05-03] MEDS ORDERED: INSULIN GLARGINE 100 UNITS/ML SQ SCH (21:00)
[2020-05-04] MEDS: FUROSEMIDE 100 MG in NA CHLORIDE 0.9% 90 ML IV SCH ×5 (00:14→18:55)
--- NOTE | 2020-05-04 05:03 | PN ---
Mr. Elaine has been followed for acute respiratory failure, acute renal failure, and acute congestive heart failure. On May 03, 2020, his vital signs were stable. Blood pressure is now 119/76, wh ich is the best he has had. His glucose still high at 354. He runs a paced rhythm. His O2 saturati on is 99% on nasal cannula at 3 L. Last creatinine is 3.29, which has improved from 3.66. His prese nt regimen includes amlodipine, Lovenox, hydralazine, insulin, remains on a Lasix drip, remains on st eroids, pantoprazole, potassium, sildenafil, thiamine, and metolazone. Nephrology is following. Pul monology is following. Known ejection fraction of 42%, with severe pulmonary hypertension. We will continue to follow. I agree with his present regimen. SHA/SADIE Voice ID: [id number] Report ID: [id number]
[2020-05-04] MEDS: D5W 1,000 ML IV SCH (05:13)
[2020-05-04 05:56] LABS: Albumin 2.9 g/dL (3.4-5.0); Phosphorus 3.4 mg/dL (2.5-4.9); Potassium 3.3 mmol/L (3.5-5.1)
[2020-05-04] MEDS ORDERED: POTASSIUM 25 MEQ EFFERV TAB PO ONE (06:10)
[2020-05-04] MEDS: SILDENAFIL CITRATE 20 MG TABLET PO SCH (09:18)
[2020-05-04] MEDS: METOLAZONE 5 MG TABLET PO SCH (09:18)
[2020-05-04] MEDS: ENOXAPARIN 100 MG/ML SYR SQ SCH (09:19)
[2020-05-04] MEDS: PANTOPRAZOLE 40 MG INJ IVP SCH ×2 (09:19→20:35)
[2020-05-04] MEDS: AMLODIPINE 5 MG TAB PO SCH (09:20)
[2020-05-04] MEDS: THIAMINE 200 MG/2 ML INJ IVP SCH (09:20)
[2020-05-04] MEDS: INSULIN -REGULAR HUMAN 50 UNIT/0.5 ML ML SQ SCH ×4 (09:52→20:34)
--- NOTE | 2020-05-04 16:45 | PN ---
Date of Progress Note: 05/04/2020 Subjective: Mr. Elaine is being followed for respiratory failure that has resolved, acute renal failu re, acute on chronic systolic congestive heart failure and severe pulmonary hypertension. He is slow ly improving. He remained in a paced rhythm. His blood pressure is 126/70 with a respiratory rate o f 18. His pulse is 82. He is afebrile. His glucose today is 384. His O2 saturation is 93% on nasa l cannula. He really has no specific distress. His creatinine has improved to 3.07. His potassium today is 3.5. He remains on amlodipine, Lovenox, hydralazine, insulin, Lasix drip, Protonix, occasio nal potassium supplementation, sildenafil 20 mg and metolazone 5 mg. Assessment/plan: Plan is to continue his present regimen and Nephrology is following and managing th e Lasix drip. We will continue to follow. SHA/SADIE Voice ID: [id number] Report ID: [id number]
[2020-05-04] MEDS ORDERED: INSULIN GLARGINE 100 UNITS/ML SQ ONE (17:00)
[2020-05-04] MEDS ORDERED: POTASSIUM CL SA 10 MEQ TAB PO ONE (17:00)
--- NOTE | 2020-05-04 23:51 | PN ---
Date of Progress Note: 05/04/2020 Chief Complaint: Chronic kidney disease stage 3B/4, [id number] kidney injury, creatinine level is trending up from 2.6 to 3.6, previous baseline creatinine level in March was 3.0. The patient has complicated history of coronary artery disease, congestive heart failure, status post AICD, diabetes mellitus and hypertension. The patient presented to the hospital because of shortness of breath. He required intubation for respiratory failure. He was found to have hypernatremia and the patient was started on D5W, corrected sodium improved to 147. Review of Systems: The patient denies PND or orthopnea. Physical Examination: Lungs: Diminished breath sounds at bases. Heart: S1 and S2. Abdomen: Soft, benign. Extremities: No edema, no ulcers. Assessment And Plan: 1. Chronic kidney disease, stage 3B/4 due to diabetes mellitus, benign nephrosclerosis, atherosclerotic vascular disease. Creatinine level is stable. Monitor electrolytes. Adjust diuretic as needed for cardiorenal syndrome, congestive heart failure. Urine output has improved. The patient will continue Lasix and metolazone. Monitor magnesium level. 2. Hypernatremia. Adjust hydration by mouth as needed. 3. Diabetes mellitus, on insulin. Monitor proteinuria. 4. Congestive heart failure. Continue blood pressure medication and adjust medication for optimal blood pressure control. I spent total 36 min including 26 min to coordinate care plan. DANIEL/SADIE Voice ID: [id number] Report ID: [id number] NATY
[2020-05-05] MEDS: D5W 1,000 ML IV SCH ×2 (00:11→20:50)
[2020-05-05] MEDS: FUROSEMIDE 100 MG in NA CHLORIDE 0.9% 90 ML IV SCH ×5 (01:07→20:51)
[2020-05-05 06:36] LABS: Absolute Lymphocytes (CBC) 2.3 K/uL (0.7-4.9); Basophils % 0.2 % (0-1.3); Hematocrit 41.6 % (39.6-49.0); Lymphocytes % 20.2 % (15.3-44.8); MPV 8.7 fL (7.6-11.3)
[2020-05-05 06:40] LABS: Albumin 3.1 g/dL (3.4-5.0); Phosphorus 3.5 mg/dL (2.5-4.9); Potassium 3.2 mmol/L (3.5-5.1)
[2020-05-05 07:13] LABS: Albumin 3.1 g/dL (3.4-5.0); Bilirubin Total 0.7 mg/dL (0.2-1.0); Magnesium 2.4 mg/dL (1.8-2.4); Phosphorus 3.5 mg/dL (2.5-4.9); Potassium 3.2 mmol/L (3.5-5.1); Protein, Total 7.2 g/dL (6.4-8.2)
[2020-05-05] MEDS: AMLODIPINE 5 MG TAB PO SCH (08:37)
[2020-05-05] MEDS: ENOXAPARIN 100 MG/ML SYR SQ SCH (08:37)
[2020-05-05] MEDS: SILDENAFIL CITRATE 20 MG TABLET PO SCH (08:38)
[2020-05-05] MEDS ORDERED: POTASSIUM CL SA 10 MEQ TAB PO ONE ×2 (08:40→19:00)
[2020-05-05] MEDS ORDERED: KCL 20 MEQ/100 mL IVPB 20 MEQ/100 ML BAG IV SCH (09:00)
[2020-05-05] MEDS: INSULIN -REGULAR HUMAN 50 UNIT/0.5 ML ML SQ SCH ×4 (09:45→20:49)
[2020-05-05] MEDS: THIAMINE 200 MG/2 ML INJ IVP SCH (10:22)
[2020-05-05] MEDS: PANTOPRAZOLE 40 MG INJ IVP SCH ×2 (10:22→20:59)
[2020-05-05] MEDS: METOLAZONE 5 MG TABLET PO SCH (10:23)
--- NOTE | 2020-05-05 17:10 | P.PN ---
Subjective Date of Service: 05/03/20 Spoke to patient's son he is clinically doing better. Patient also was hydrated with D5 and sodium has gone up and his creatinine has improved. Continue monitoring closely. Awaiting LTAC placement Review of Systems 10-point ROS is otherwise unremarkable Physical Examination - Vital Signs Temperature: 97.5 F Blood Pressure: 121/68 Pulse: 88 Respirations: 18 Pulse Ox (%): 96 - Physical Exam General: Alert, In no apparent distress, Oriented x3 Respiratory: Diminished, Crackles/rales Cardiovascular: Regular rate/rhythm, Normal S1 S2, Systolic murmur Gastrointestinal: Normal bowel sounds, Soft and benign, Non-distended, No tenderness Musculoskeletal: No clubbing, No tenderness, Swelling Neurological: Sensation intact, Cranial nerves 3-12 intact, Abnormal gait, Abnormal strength Lymphatics: No axilla or inguinal lymphadenopathy - Studies Medications List Reviewed: Yes Assessment & Plan - Problems (Diagnosis) (1) Acute on chronic systolic CHF (congestive heart failure) Current Visit: Yes Status: Acute (2) Severe pulmonary arterial systolic hypertension Current Visit: Yes Status: Acute (3) Diabetes mellitus Current Visit: Yes Status: Acute (4) Acute respiratory failure with hypoxia Current Visit: No Status: Acute (5) CKD (chronic kidney disease) stage 3, GFR 30-59 ml/min Onset Date: 09/14/16 Current Visit: No Status: Chronic (6) Essential hypertension Onset Date: 09/14/16 Current Visit: No Status: Chronic (7) History of permanent cardiac pacemaker placement Current Visit: No Status: Chronic (8) Upper GI bleeding Current Visit: Yes Status: Acute - Plan Plan: 1. Patient continues to gradually improve. Patient looked to be dehydrated so started on some fluids. Renal function improving 2. Continuing Lasix drip per Nephrology 3. Keep Waters in as were monitoring I's and O's per Nephrology 4. Appreciate Pulmonary and Nephrology assistance 5. Echo with severe pulmonary HTN; EF of 42% 6. Awaiting LTAC placement-nephrology recommended [facility]. Case management working on placement 7. Monitor hemodynamics and respiratory status closely 8. Get physical therapy consultation if the continues to improve 9. GI/DVT prophylaxis - Advance Directives Does patient have a Living Will: No Does patient have a Durable POA for Healthcare: No - Code Status/Comfort Care Code Status: Full Code Physician Review: Patient Assessed, Agree with Above Assessment and Plan Critical Care: No Time Spent Managing PTS Care (In Minutes): 35
--- NOTE | 2020-05-05 17:12 | P.PN ---
Subjective Date of Service: 05/04/20 Patient continues to improve. Renal function continues to improve. Still uremic but this will probably lag behind for a few days. Overall patient is looking better and we are awaiting placement at LTAC. Continues on Lasix drip and D5 to correct sodium. Physical therapy consultation pending Review of Systems 10-point ROS is otherwise unremarkable Physical Examination - Vital Signs Temperature: 97.5 F Blood Pressure: 121/68 Pulse: 88 Respirations: 18 Pulse Ox (%): 96 - Physical Exam General: Alert, In no apparent distress, Oriented x3 Respiratory: Diminished Cardiovascular: Regular rate/rhythm, Normal S1 S2, Systolic murmur Gastrointestinal: Normal bowel sounds, Soft and benign, Non-distended, No tenderness Musculoskeletal: No clubbing, No tenderness, Swelling Neurological: Sensation intact, Cranial nerves 3-12 intact, Abnormal gait, Abnormal strength Lymphatics: No axilla or inguinal lymphadenopathy - Studies Medications List Reviewed: Yes Assessment & Plan - Problems (Diagnosis) (1) Acute on chronic systolic CHF (congestive heart failure) Current Visit: Yes Status: Acute (2) Severe pulmonary arterial systolic hypertension Current Visit: Yes Status: Acute (3) Diabetes mellitus Current Visit: Yes Status: Acute (4) Acute respiratory failure with hypoxia Current Visit: No Status: Acute (5) CKD (chronic kidney disease) stage 3, GFR 30-59 ml/min Onset Date: 09/14/16 Current Visit: No Status: Chronic (6) Essential hypertension Onset Date: 09/14/16 Current Visit: No Status: Chronic (7) History of permanent cardiac pacemaker placement Current Visit: No Status: Chronic (8) Upper GI bleeding Current Visit: Yes Status: Acute - Plan Plan: Continue with plan of care as mentioned below: 1. Patient continues to gradually improve. Renal function improving. Uremia is lagging behind but it has stopped worsening. 2. Continuing Lasix drip per Nephrology 3. Keep Waters in as were monitoring I's and O's per Nephrology 4. Appreciate Pulmonary and Nephrology assistance 5. Echo with severe pulmonary HTN; EF of 42% 6. Awaiting LTAC placement-nephrology recommended [facility]. Case management working on placement 7. Monitor hemodynamics and respiratory status closely 8. Physical therapy consultation 9. GI/DVT prophylaxis Discharge Plan: LTAC Plan to discharge in: Greater than 2 days - Advance Directives Does patient have a Living Will: No Does patient have a Durable POA for Healthcare: No - Code Status/Comfort Care Code Status: Full Code Physician Review: Patient Assessed, Agree with Above Assessment and Plan Critical Care: No Time Spent Managing PTS Care (In Minutes): 35
[2020-05-06] MEDS: FUROSEMIDE 100 MG in NA CHLORIDE 0.9% 90 ML IV SCH ×5 (01:28→22:00)
[2020-05-06 04:51] LABS: Albumin 3.1 g/dL (3.4-5.0); Phosphorus 3.5 mg/dL (2.5-4.9); Potassium 3.5 mmol/L (3.5-5.1)
--- NOTE | 2020-05-06 05:34 | P.PN ---
Subjective Date of Service: 05/05/20 Patient states he is feeling much better. Urine output remains adequate. Remains on Lasix drip and IV fluids. Awaiting LTAC placement. Continue with physical therapy. Out of bed into chair if he does well. Hopefully patient will be accepted to LTAC over the next 24-48 hours. Review of Systems 10-point ROS is otherwise unremarkable Physical Examination - Vital Signs Temperature: 97.5 F Blood Pressure: 121/68 Pulse: 88 Respirations: 18 Pulse Ox (%): 96 - Physical Exam General: Alert, In no apparent distress, Oriented x3 Respiratory: Crackles/rales Cardiovascular: Regular rate/rhythm, Normal S1 S2, No murmurs Gastrointestinal: Normal bowel sounds, Soft and benign, Non-distended, No tenderness Musculoskeletal: No clubbing, No swelling, No tenderness - Studies Medications List Reviewed: Yes Assessment & Plan - Problems (Diagnosis) (1) Acute on chronic systolic CHF (congestive heart failure) Current Visit: Yes Status: Acute (2) Severe pulmonary arterial systolic hypertension Current Visit: Yes Status: Acute (3) Diabetes mellitus Current Visit: Yes Status: Acute (4) Acute respiratory failure with hypoxia Current Visit: No Status: Acute (5) CKD (chronic kidney disease) stage 3, GFR 30-59 ml/min Onset Date: 09/14/16 Current Visit: No Status: Chronic (6) Essential hypertension Onset Date: 09/14/16 Current Visit: No Status: Chronic (7) History of permanent cardiac pacemaker placement Current Visit: No Status: Chronic (8) Upper GI bleeding Current Visit: Yes Status: Acute - Plan Plan: Continue with plan of care as mentioned below: 1. Patient has done well since extubation. Patient continues to gradually improve. Renal function improving. Uremia is starting to improve as well 2. Continuing Lasix drip per Nephrology; also on D5 water and will monitor sodium and chloride closely 3. Keep Waters in as were monitoring I's and O's per Nephrology 4. Appreciate Pulmonary and Nephrology assistance 5. Echo with severe pulmonary HTN; EF of 42% 6. Awaiting LTAC placement-nephrology recommended [facility]. Case management working on placement 7. Monitor hemodynamics and respiratory status closely 8. Physical therapy consultation to start with ambulation and out of bed into a chair 9. GI/DVT prophylaxis Discharge Plan: LTAC Plan to discharge in: 48 Hours - Advance Directives Does patient have a Living Will: No Does patient have a Durable POA for Healthcare: No - Code Status/Comfort Care Code Status: Full Code Physician Review: Patient Assessed, Agree with Above Assessment and Plan Critical Care: No Time Spent Managing PTS Care (In Minutes): 35
[2020-05-06] MEDS ORDERED: POTASSIUM 25 MEQ EFFERV TAB PO ONE (06:00)
[2020-05-06] MEDS: SILDENAFIL CITRATE 20 MG TABLET PO SCH (08:54)
[2020-05-06] MEDS: METOLAZONE 5 MG TABLET PO SCH (08:54)
[2020-05-06] MEDS: THIAMINE 200 MG/2 ML INJ IVP SCH (08:54)
[2020-05-06] MEDS: AMLODIPINE 5 MG TAB PO SCH (08:54)
[2020-05-06] MEDS: PANTOPRAZOLE 40 MG INJ IVP SCH ×2 (08:54→21:59)
[2020-05-06] MEDS: ENOXAPARIN 100 MG/ML SYR SQ SCH (08:55)
[2020-05-06] MEDS: SODIUM CHLORIDE 0.9% 10ML INJ IV PRN (08:55)
[2020-05-06] MEDS: INSULIN -REGULAR HUMAN 50 UNIT/0.5 ML ML SQ SCH ×4 (08:55→22:00)
--- NOTE | 2020-05-06 12:59 | P.PN ---
Subjective Date of Service: 05/06/20 Chief Complaint: Respiratory failure Subjective: Improving Physical Examination - Vital Signs Temperature: 97.6 F Blood Pressure: 151/71 Pulse: 88 Respirations: 18 Pulse Ox (%): 95 - Physical Exam General: Alert HEENT: Atraumatic Neck: Supple Respiratory: Clear to auscultation bilaterally, Normal air movement Cardiovascular: Normal pulses, Regular rate/rhythm Gastrointestinal: Normal bowel sounds Neurological: Normal speech, Normal strength at 5/5 x4 extr, Normal tone, Normal affect - Studies Medications List Reviewed: Yes Assessment & Plan Discharge Plan: LTAC Plan to discharge in: 24 Hours Physician Review Additional Text: Impression: Acute respiratory failure with hypoxia secondary to Acute on chronic systolic CHF with severe pulmonary hypertension Acute on chronic renal disease stage II Hypertension History of pacemaker GERD Plan: Continue with IV diuresis. Patient on insulin drip. Patient has done well post extubation. Continue physical therapy. Monitor input and output closely. Case discussed with pulmonology and nephrology. Echocardiogram shows severe pulmonary hypertension with ejection fraction 42%. Nephrology recommends long- term acute facility placement. Working on transfer when approved. Medications reviewed. Will monitor closely. DVT prophylaxis in place. Anticipate discharg e to long-term acute care facility as early as today. Time Spent Managing Pts Care (In Minutes): 55
[2020-05-06] MEDS: D5W 1,000 ML IV SCH ×2 (15:00→22:03)
--- NOTE | 2020-05-06 15:50 | PN ---
Date of Progress Note: 05/05/2020 Chief Complaint: Chronic kidney stage 3B/4, acute on chronic kidney injury. Creatinine level is trending up from 2.6 to 3.6. His previous baseline creatinine back in March was 3.0. Patient had complicated history of coronary artery disease, congestive heart failure, status post AICD, diabetes mellitus and hypertension. He presented to the hospital because of shortness of breath. He required intubation for respiratory failure. He was found to have hypernatremia, resolved. Review of Systems: Denies PND or orthopnea. Physical Examination: Lungs: Diminished breath sounds at bases. Heart: S1-S2. Abdomen: Soft, benign. Extremities: No ulcers. Impression And Plan: 1. Chronic kidney disease stage IIIB/IV due to diabetes mellitus and benign nephrosclerosis, atherosclerotic vascular disease. Creatinine level is stabilizing. Will continue antibiotics for cardiorenal syndrome. Congestive heart failure is compensated. Urine output is improving. Continue Lasix and metolazone. 2. Hypernatremia. Adjust hydration by mouth as needed, sodium level is improving. 3. Diabetes mellitus. Monitor proteinuria and adjust blood pressure medication. Patient is recovering from acute kidney injury. 4. Congestive heart failure. Adjust medication for optimal blood pressure control and monitor fluid balance. I spent total 36 min including 26 min to coordinate care plan. DANIEL/SADIE Voice ID: [id number] Report ID: [id number] NATY
[2020-05-07] MEDS: FUROSEMIDE 100 MG in NA CHLORIDE 0.9% 90 ML IV SCH ×2 (03:58→07:00)
--- NOTE | 2020-05-07 04:50 | PN ---
Date of Progress Note: 05/06/2020 Chief Complaint: Chronic kidney disease stage 3B/4, acute on chronic kidney injury, cardiorenal synd eris, respiratory failure. Subjective: The patient was admitted to the hospital and required intubation for respiratory failure , complicated by congestive heart failure. The patient is currently extubated. He had episodes of h ypernatremia, which resolved in response to adjustment of IV fluids. Review of Systems: Denies chest pain or palpitation. Physical Examination: Lungs: Diminished breath sounds at bases. Heart: S1, S2. Abdomen: Soft, benign. Extremities: No ulcer. Impression And Plan: 1.Chronic kidney disease stage 3B/4 due to diabetes mellitus and benign nephrosclerosis, atheroscler otic vascular disease. Creatinine level is stabilizing with high BUN-creatinine ratio. Lasix dose w as adjusted to prevent high BUN-creatinine ratio. Monitor electrolytes. The patient although may ne ed dialysis in the near future. 2.Hypernatremia. The patient is tolerating p.o. intake. Sodium level is improving. 3.Diabetes mellitus. Monitor proteinuria. The patient is recovering from acute kidney injury. Mon itor blood pressure. Adjust medication. 4.Congestive heart failure. Adjust medication for optimal blood pressure control. DANIEL/MODL Voice ID: [id number] Report ID: [id number]
[2020-05-07 05:39] LABS: Phosphorus 3.9 mg/dL (2.5-4.9)
[2020-05-07 05:40] LABS: Potassium 3.4 mmol/L (3.5-5.1)
[2020-05-07 05:41] LABS: Magnesium 2.3 mg/dL (1.8-2.4)
[2020-05-07 05:44] LABS: Absolute Lymphocytes (CBC) 2.7 K/uL (0.7-4.9); Basophils % 0.9 % (0-1.3); Hematocrit 38.4 % (39.6-49.0); MPV 8.8 fL (7.6-11.3); RBC Red Blood Cell Count 4.35 M/uL (4.33-5.43)
[2020-05-07] MEDS ORDERED: FUROSEMIDE 100 MG in NA CHLORIDE 0.9% 90 ML IV SCH (09:00)
[2020-05-07] MEDS ORDERED: POTASSIUM 25 MEQ EFFERV TAB PO ONE (09:00)
[2020-05-07] MEDS ORDERED: ENOXAPARIN 100 MG/ML SYR SQ SCH (09:00)
[2020-05-07] MEDS: INSULIN -REGULAR HUMAN 50 UNIT/0.5 ML ML SQ SCH ×4 (09:03→21:16)
[2020-05-07] MEDS: METOLAZONE 5 MG TABLET PO SCH (09:04)
[2020-05-07] MEDS: SODIUM CHLORIDE 0.9% 10ML INJ IV PRN ×2 (09:05→21:17)
[2020-05-07] MEDS: PANTOPRAZOLE 40 MG INJ IVP SCH ×2 (09:05→21:18)
[2020-05-07] MEDS: THIAMINE 200 MG/2 ML INJ IVP SCH (09:05)
[2020-05-07] MEDS: AMLODIPINE 5 MG TAB PO SCH (09:05)
[2020-05-07] MEDS: SILDENAFIL CITRATE 20 MG TABLET PO SCH (09:06)
[2020-05-07] MEDS: D5W 1,000 ML IV SCH (11:00)
[2020-05-07] MEDS: FUROSEMIDE 40 MG/4 ML VIAL IV SCH ×2 (13:12→21:18)
--- NOTE | 2020-05-07 13:15 | P.PN ---
Subjective Date of Service: 05/07/20 Chief Complaint: Respiratory failure Subjective: Improving Physical Examination - Vital Signs Temperature: 97.9 F Blood Pressure: 170/86 Pulse: 87 Respirations: 19 Pulse Ox (%): 100 - Physical Exam General: Alert, In no apparent distress, Oriented x3, Cooperative HEENT: Atraumatic Neck: Supple Respiratory: Clear to auscultation bilaterally, Normal air movement Cardiovascular: Normal pulses, Regular rate/rhythm Gastrointestinal: Normal bowel sounds Integumentary: No erythema, No warmth, No cyanosis Neurological: Normal speech, Normal strength at 5/5 x4 extr, Normal tone, Normal affect - Studies Medications List Reviewed: Yes Assessment & Plan Discharge Plan: Other (SNF) Plan to discharge in: 48 Hours Physician Review Additional Text: Impression: Acute respiratory failure with hypoxia secondary to Acute on chronic systolic CHF with severe pulmonary hypertension Acute on chronic renal disease stage II Hypertension History of pacemaker GERD Plan: Acute respiratory failure with hypoxia secondary to Acute on chronic systolic CHF with severe pulmonary hypertension: Patient continues to do well. Currently on IV Lasix drip. Case discussed with nephrology. Nephrology will tried to discontinue IV drip and continue with diuresis. Going to a long-term care facility may be difficult. Will need to consider other options like skilled placement. Will consult protective services social worker to help with this. Acute on chronic renal disease stage II: Continue with nephrology recommendation. Nephrology to adjust diuretic therapy. Hypertension: Continue medication History of pacemaker: Stable. GERD: Continue medication Time Spent Managing Pts Care (In Minutes): 55
--- NOTE | 2020-05-07 22:24 | RAD REPORT ---
EXAM DESCRIPTION: RAD - Chest Single View - 05/07/2020 9:31 pm CLINICAL HISTORY: COPD Chest pain. COMPARISON: Chest Single View dated 05/01/2020; Chest Single View dated 04/28/2020; Chest Single View da jose juan 04/27/2020; Chest Single View dated 04/27/2020 FINDINGS: Portable technique limits examination quality. The lungs are grossly clear. A small left pleural effusion is noted. The heart is moderately enlarged with a multi lead pacer/ defibrillator device.
--- NOTE | 2020-05-07 22:27 | PN ---
Date of Progress Note: 05/07/2020 Subjective: The patient was admitted with respiratory failure secondary to cardiopulmonary. The patient was started on Lasix drip, responding very well. The patient was intubated and extubated. The patient had good urine output, did not require any renal replacement therapy. Physical Examination: Vital Signs: When I saw the patient, blood pressure 133/78, pulse of 88, afebrile. The patient had good urine output of 3600. The patient negative of 1100. Has lost on the lost couple of days 15 pounds. Chest: Clear to auscultation. Heart: S1, S2. Regular. Abdomen: Soft, nontender. Extremities: Plus edema. Neurologic: Alert, follows commands. Nonfocal. Laboratory Data: WBC 14.8, H and H 12.9/38.4, platelet 162. Sodium 130, potassium 3.4, bicarb 34, BUN 108, creatinine 3.4, calcium 8.6, phosphorus 3.9, magnesium 2.3. TSH of 0.7. Current Medications: The patient on its include Lasix drip at 20 mg per hour, Lovenox, hydralazine, amlodipine, Revatio, Tylenol, Zofran, pantoprazole, insulin. Assessment And Plan: 1. Acute kidney injury on chronic kidney disease, recovered plateau. Blood pressure has been stable. I am going to go ahead and change Lasix drip to Lasix bolus. Plan to switch later on to oral. I am going to go ahead and discontinue amlodipine blood pressure for the diuresis. 2. Hypertension as above. Change Lasix drip to bolus, discontinue amlodipine Revatio given the pulmonary hypertension. We will follow up with Pulmonary. 3. Respiratory failure, multifactorial, secondary to chronic obstructive pulmonary disease, congestive heart failure, recovered, off vent. We will continue diuresis to optimize fluid status. I am going to go ahead and get chest x-ray for better evaluation of his fluid status and we will follow up. 4. Pulmonary hypertension as by Pulmonary. 5. Diabetes. Blood sugar being controlled. No hypoglycemia anymore. I am going to discontinue D5. 6. Hyponatremia secondary to dilutional. Discontinue D5. We will continue diuresis to establish better volume control. time spent to coordinate the care , discussing with other team meember the care , face to face with the patient and discussed the plan with patient , placing order 35 min HOMER Voice ID: [id number] Report ID: [id number] NATY
[2020-05-08 06:06] LABS: Absolute Lymphocytes (CBC) 2.4 K/uL (0.7-4.9); Basophils % 0.6 % (0-1.3); Hematocrit 39.3 % (39.6-49.0); MPV 7.9 fL (7.6-11.3); RBC Red Blood Cell Count 4.47 M/uL (4.33-5.43)
[2020-05-08 06:31] LABS: Magnesium 2.4 mg/dL (1.8-2.4); Potassium 3.4 mmol/L (3.5-5.1)
--- NOTE | 2020-05-08 08:20 | P.PN ---
Subjective Date of Service: 05/08/20 Chief Complaint: Respiratory failure Subjective: Other (Patient has done well with physical therapy. Last night patient had some hematuria from the Waters catheter.) Physical Examination - Vital Signs Temperature: 97.6 F Blood Pressure: 130/81 Pulse: 84 Respirations: 16 Pulse Ox (%): 100 - Physical Exam General: Alert, In no apparent distress, Oriented x3, Cooperative HEENT: Atraumatic Neck: Supple Respiratory: Clear to auscultation bilaterally, Normal air movement Cardiovascular: Normal pulses, Regular rate/rhythm Gastrointestinal: Normal bowel sounds, Soft and benign, Non-distended Integumentary: No tenderness/swelling, No erythema, No warmth, No cyanosis Neurological: Normal speech, Normal strength at 5/5 x4 extr, Normal tone, Normal affect Urinary: Other (Hematuria noted from Waters catheter) - Studies Medications List Reviewed: Yes Assessment & Plan Discharge Plan: Home (With home health and physical therapy) Plan to discharge in: 48 Hours Physician Review Additional Text: Impression: Hematuria etiology unknown Acute respiratory failure with hypoxia secondary to Acute on chronic systolic CHF with severe pulmonary hypertension Acute on chronic renal disease stage II Hypertension History of pacemaker GERD Plan: Hematuria etiology unknown: Will hold Lovenox at this time. Will irrigate bladder. Will monitor this closely. Will discuss further with nephrology. May need urology evaluation. If so patient may need to be transferred. Acute respiratory failure with hypoxia secondary to Acute on chronic systolic CHF with severe pulmonary hypertension: Patient continues to do well. IV Lasix has been transition off of trip to scheduled doses. May be able to transition to oral. Anticipated long-term acute care facility but this may be difficult. Patient ambulating well. Patient may not qualify for this therefore will continue to pursue possible home at discharge with home health versus skilled placement. But patient ambulating greater than 250 feet. Likely home with home health at discharge. Will need to get hematuria resolved 1st. Continue with diuresis. Acute on chronic renal disease stage II: Continue with nephrology recommendation. Nephrology to further address diuretic therapy. Will need to further evaluate hematuria. Irrigate bladder. May need further evaluation by urology. If urology required patient will likely need to be transferred. Hypertension: Continue medication History of pacemaker: Stable. GERD: Continue medication Time Spent Managing Pts Care (In Minutes): 55
[2020-05-08] MEDS: INSULIN -REGULAR HUMAN 50 UNIT/0.5 ML ML SQ SCH ×4 (08:23→20:49)
[2020-05-08] MEDS: FUROSEMIDE 40 MG/4 ML VIAL IV SCH (08:24)
[2020-05-08] MEDS: SILDENAFIL CITRATE 20 MG TABLET PO SCH (08:25)
[2020-05-08] MEDS: PANTOPRAZOLE 40 MG INJ IVP SCH ×2 (08:25→20:47)
[2020-05-08] MEDS: SODIUM CHLORIDE 0.9% 10ML INJ IV PRN ×2 (08:25→20:48)
[2020-05-08] MEDS ORDERED: POTASSIUM 25 MEQ EFFERV TAB PO ONE (09:00)
[2020-05-08] MEDS: METOLAZONE 5 MG TABLET PO SCH ×2 (09:00→09:36)
[2020-05-08] MEDS: THIAMINE HCL 100 MG TABLET PO SCH (09:36)
--- NOTE | 2020-05-08 12:34 | PN ---
Date of Progress Note: 05/08/2020 Subjective: The patient was admitted with acute kidney injury on advanced chronic kidney disease. The patient had hypoxemic respiratory failure secondary to over volume. After diuresis, kidney function stabilized. The patient depended on Lasix drip yesterday. We started Lasix bolus. Apparently, his blood pressure started dropping even with slow infusion. Physical Examination: Vital Signs: Blood pressure 93/51, pulse of 93, afebrile. The patient had urine output of 3600, negative of 1100 which is less than day before. Chest: Crackles bilateral. Heart: S1, S2. Systolic murmur. Abdomen: Soft, nontender. Extremities: +1 edema. Neurologic: Alert and oriented. No focal. Laboratory Data: WBC 12.2, H and H 13.1/39.3, platelets 246. Sodium 131, potassium 3.4, bicarb 34, BUN 102, creatinine 3.7, calcium 8.8, magnesium 2.4. Current Medications: The patient on include Revatio, Lasix 80 t.i.d., metolazone 5, pantoprazole. Assessment And Plan: 1. Acute kidney injury on chronic kidney disease, slow progression, over volume. I am going to try with the patient to switch him to p.o. to avoid further drop in the kidney function. If continued to decline, the patient may need to be initiated on renal replacement therapy. Even though it is not going to be a good option with his cardiac condition, for today we going to change the Lasix to p.o. and we will follow up if the patient's uremic symptoms continued to worsen or his BUN raise further. At that time, we have to proceed with renal replacement therapy for the time being if it is trending down. 2. Hypertension. Currently, blood pressure on the lower side as above. Hold all blood pressure medications, except the diuresis. 3. Diabetes as by primary. 4. Secondary hyperparathyroidism. Calcium on the normal side. No need for vitamin D. 5. Hypercapnic respiratory failure and pulmonary hypertension as by Pulmonary. 6. Respiratory failure secondary to chronic obstructive pulmonary disease/congestive heart failure. Intubated and extubated. We will follow up. time spent to coordinate the care , discussing with other team meember the care , face to face with the patient and discussed the plan with patient , placing order 35 min RHETT/SADIE Voice ID: [id number] Report ID: [id number] NATY
[2020-05-08] MEDS: FUROSEMIDE 40 MG TABLET PO SCH ×2 (13:14→20:47)
[2020-05-08] MEDS ORDERED: GLUCAGON 1 MG/VIAL IM PRN (15:35)
[2020-05-08] MEDS ORDERED: D50W 25 GM/50 ML SYRINGE/VIAL IV PRN (15:35)
--- NOTE | 2020-05-08 16:32 | RAD REPORT ---
EXAM DESCRIPTION: Nancy Single View05/08/2020 4:24 pm CLINICAL HISTORY: Chest pain COMPARISON: May 07, 2020 FINDINGS: The lungs appear clear of acute infiltrate. The heart is mildly enlarged. Pacemaker leads are in place. Small left pleural effusion
[2020-05-08] MEDS: JUVEN PACKET PO SCH (20:49)
[2020-05-08] MEDS ORDERED: INSULIN GLARGINE 100 UNITS/ML SQ SCH (21:00)
[2020-05-09 05:43] LABS: Absolute Lymphocytes (CBC) 3.1 K/uL (0.7-4.9); Basophils % 1.1 % (0-1.3); Hematocrit 39.6 % (39.6-49.0); MPV 8.2 fL (7.6-11.3); RBC Red Blood Cell Count 4.46 M/uL (4.33-5.43)
[2020-05-09 05:47] LABS: Magnesium 2.6 mg/dL (1.8-2.4); Potassium 4.1 mmol/L (3.5-5.1)
[2020-05-09] MEDS: METOLAZONE 5 MG TABLET PO SCH (08:51)
[2020-05-09] MEDS: INSULIN -REGULAR HUMAN 50 UNIT/0.5 ML ML SQ SCH ×4 (08:51→20:52)
[2020-05-09] MEDS: SILDENAFIL CITRATE 20 MG TABLET PO SCH (08:53)
[2020-05-09] MEDS: PANTOPRAZOLE 40 MG INJ IVP SCH ×2 (08:53→20:51)
[2020-05-09] MEDS: THIAMINE HCL 100 MG TABLET PO SCH (08:53)
[2020-05-09] MEDS: FUROSEMIDE 40 MG TABLET PO SCH ×3 (08:53→20:48)
[2020-05-09] MEDS: JUVEN PACKET PO SCH ×2 (08:54→20:51)
--- NOTE | 2020-05-09 12:48 | PN ---
Date of Progress Note: 05/09/2020 Subjective: The patient was admitted with over volume, respiratory failure, acute kidney injury secondary to cardiorenal. The patient was maintained on Lasix drip. Last 24-hour we switch him to IV push, then overall kidney function continue to decline with significant elevation in the BUN, mostly it was secondary to the cardiorenal. The patient is sleepy. Blood pressure after we switch him to oral, we do not have any low blood pressure on the last 24-hour. Physical Examination: Vital Signs: Blood pressure 137/85, pulse of 95, afebrile. The patient on oral diuresis, has a 2800, negative of 1100. Chest: Crackles bilateral. Heart: S1 and S2. Systolic murmur. Abdomen: Soft, nontender. Extremities: Trace edema. Neuro: Faint tremors. No focality. The patient is sleepy. Laboratory Data: WBC 13.6, H and H 13/39.6, platelet 283. Sodium 132, potassium 4.1, bicarb 37, BUN 119, creatinine 4.4, calcium 9.4, magnesium 2.6, phosphorus 3.9. Current Medications: The patient on its include Lasix 80 t.i.d., metolazone 5 mg daily, Revatio, pantoprazole, insulin. Assessment/plan: 1. Acute kidney injury on advanced chronic kidney disease, progression to end- stage renal disease, still over volume with current high dose of diuresis. I had long discussion with the patient regarding the option of treatment and the need to initiate renal replacement therapy. The patient agreed on that. We going to go ahead and proceed with Surgery consult for PermCath placement and we will follow up. We will arrange for outpatient dialysis. We will send for hepatitis panel. 2. Hypertension. Currently controlled. No low blood pressure. We will keep utilizing blood pressure for more ultrafiltration and diuresis. 3. Congestive heart failure, cardiorenal syndrome. Continue diuresis. 4. Hematuria, mostly traumatic. Starting clearing up. We will continue current treatment with p.r.n. irrigation. I am going to go ahead and get renal ultrasound just to make sure that no clot in the bladder. I agree with holding the Lovenox for the time being. 5. Pneumonia. Status post treatment. Time spent coordinating the care, discuss him with all of our team members including othere medical consultant and hospitalist and [id number] with the patient and please go out of 35 min HOMER Voice ID: [id number] Report ID: [id number] NATY
--- NOTE | 2020-05-09 14:24 | P.PN ---
Subjective Date of Service: 05/09/20 Chief Complaint: Respiratory failure Subjective: Improving (hematuria improved) Physical Examination - Vital Signs Temperature: 97.2 F Blood Pressure: 125/67 Pulse: 90 Respirations: 18 Pulse Ox (%): 100 - Physical Exam General: Alert, In no apparent distress, Oriented x3, Cooperative HEENT: Atraumatic Neck: Supple Respiratory: Clear to auscultation bilaterally, Normal air movement Cardiovascular: Normal pulses, Regular rate/rhythm Gastrointestinal: Normal bowel sounds, Soft and benign, Non-distended, No masses, No rebound, No guarding Neurological: Normal speech, Normal strength at 5/5 x4 extr, Normal tone, Normal affect - Studies Medications List Reviewed: Yes Assessment & Plan Discharge Plan: Home Plan to discharge in: 72 Hours Physician Review Additional Text: Impression: Hematuria etiology unknown Acute respiratory failure with hypoxia secondary to Acute on chronic systolic CHF with severe pulmonary hypertension Acute on chronic renal disease stage 5 now end-stage renal disease requiring dialysis Hypertension History of pacemaker GERD Diabetes mellitus type 2 insulin-dependent with hyperglycemia Plan: Hematuria etiology unknown: Lovenox currently on hold. Continue to irrigate bladder. This has improved. Case discussed in detail with nephrology. Once clear Waters will be removed. On forcefully his renal failure is worsened. No improvement noted. Nephrology has ordered for dialysis catheter placement will with initiation of dialysis.. Will irrigate bladder. Will monitor this closely. Will discuss further with nephrology. May need urology evaluation. If so patient may need to be transferred. Acute on chronic renal disease stage 5 now end-stage renal disease requiring dialysis: Renal function not improve. Nephrology recommends dialysis. This was discussed with the patient in detail. He has agreed. Dialysis catheter to be placed. Dialysis to be initiated. Will pursue outpatient dialysis. Acute respiratory failure with hypoxia secondary to Acute on chronic systolic CHF with severe pulmonary hypertension: Patient has transitioned to oral Lasix and metolazone. Patient requiring dialysis. Overall stable. Hypertension: Continue medication History of pacemaker: Stable. GERD: Continue medication Diabetes mellitus type 2 insulin dependent: Continue to adjust insulin for better control. Time Spent Managing Pts Care (In Minutes): 55
[2020-05-09] MEDS ORDERED: SIMETHICONE 80 MG TAB PO PRN (15:29)
--- NOTE | 2020-05-09 17:07 | CON ---
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 He continued to be worked up and was found to have oxygen requirements and was placed on CPAP. He had some desat urations and required intubation for profound hypoxia in the emergency room in respiratory distress. He was improved and he was ultimately successfully extubated; however, he continues to have worsenin g renal dysfunction, so he has what appears to be a decline in his chronic renal disease, possibly ac jagdish on chronic renal failure, thus necessitating a possible start of hemodialysis. The wafer fabrication technician has discussed the case with the patient and decided to initiate hemodialysis at this time, as such I was consulted for the above-stated issue. Past Medical History: Significant for hypertension, diabetes, coronary artery disease, hyperlipidemi a, neuropathy, chronic congestive heart failure both systolic and diastolic type. Past Surgical History: Includes cholecystectomy and pacemaker placement. Social History: He does not recall if he smoked in the past. He denies alcohol or recreational drug use. Allergies: TO CIPRO AND ERYTHROMYCIN. Home Medications: Include Norvasc, glipizide, Levemir, Coreg, levetiracetam, atorvastatin, Catapres, Lasix, isosorbide mononitrate, ferrous sulfate, clindamycin, allopurinol. Family History: Significant for heart disease in the father. Mother had diabetes. Review of Systems: Ten-point review of systems other than HPI, denies. Physical Examination: Vital Signs: At the time of my examination; his BMI is 30. His vital signs were a temperature of 97 .2, heart rate was 90, blood pressure 125/67, respiratory rate 18, SpO2 100% on room air. General: He is awake, alert, and oriented. Psychiatric: He is appropriate and conversive. He has insight into most of his medical history, but cannot recall certain aspects with good detail. HEENT: He is otherwise normocephalic. Sclerae were anicteric. His mucous membranes were moist. Or opharynx clear. Neck: Supple. No JVD. Chest: Normal expansion and excursion. Cardiovascular: Regular rate and rhythm. Pulmonary: Clear to auscultation bilaterally. Extremities: No clubbing, cyanosis, or edema. Skin: Warm and dry. Laboratory Data: Reveals a white blood count 13.6, hemoglobin is 13.0, hematocrit 39.6, his platelet count was 283. His sodium is 132, potassium 4.1, chloride is 83, carbon dioxide 37, BUN 119, creati nine 4.4, his glucose was 303, magnesium was 2.6. He had imaging performed, which included a chest x -ray officially read on 05/08 as lungs appear clear of acute infiltrate, the heart is mildly enlarged , pacemaker leads in place, a small left pleural effusion. Assessment And Plan: 1.This is a 64-year-old male, who presents with signs and symptoms of acute on chronic renal dysfunc tion, now necessitating initiation of hemodialysis per Dr. Mckeon's recommendations. 2.I have explained the risks, benefits, and alternatives of placement of a tunneled hemodialysis cat heter in one of the major vessels of the neck including the jugulars or subclavian. I explained the risks, benefits, and alternatives of this plan including, but not limited to bleeding, infection, dam age to surrounding tissues, injury to the lung, pneumothorax, need for further operations and procedures. The patient agrees as indicated. Thank you for this interesting consult. HITESH/SADIE Voice ID: [id number] Report ID: [id number]
--- NOTE | 2020-05-09 19:16 | RAD REPORT ---
EXAM DESCRIPTION: US - Renal Ultrasound-Complete - 05/09/2020 7:08 pm CLINICAL HISTORY: hematurea COMPARISON: Renal Ultrasound-Complete dated 03/23/2020 FINDINGS: Right kidney is 10.8 x 6.2 x 5.1 cm. Left kidney is 11.1 x 6.6 x 5.1 cm. Renal cortical th ickness and echogenicity are normal. No hydronephrosis or suspicious renal mass. Bladder is contracted around a Waters catheter precluding assessment. IMPRESSION: No hydronephrosis or suspicious renal mass. No other significant findings.
[2020-05-09] MEDS: INSULIN GLARGINE 100 UNITS/ML SQ SCH (20:52)
[2020-05-10] MEDS ORDERED: NS 0.9% VIAL 40 ML ONE (08:09)
[2020-05-10] MEDS ORDERED: HEPARIN 5000 UNIT/ML 1 ML VIAL ONE (08:10)
[2020-05-10] MEDS ORDERED: BUPIVACA 0.25%/EPI 0.0005%/PF 30 ML VIAL ONE (08:10)
[2020-05-10] MEDS: JUVEN PACKET PO SCH ×2 (08:44→21:00)
[2020-05-10] MEDS: FUROSEMIDE 40 MG TABLET PO SCH ×3 (08:44→22:33)
[2020-05-10] MEDS: INSULIN -REGULAR HUMAN 50 UNIT/0.5 ML ML SQ SCH ×4 (08:45→22:35)
[2020-05-10] MEDS: SILDENAFIL CITRATE 20 MG TABLET PO SCH (08:45)
[2020-05-10] MEDS: METOLAZONE 5 MG TABLET PO SCH (08:45)
[2020-05-10] MEDS: THIAMINE HCL 100 MG TABLET PO SCH (08:45)
[2020-05-10] MEDS: PANTOPRAZOLE 40 MG INJ IVP SCH ×2 (08:54→22:35)
[2020-05-10] MEDS ORDERED: NA CHLORIDE 0.9% 500 ML ONE (09:16)
--- NOTE | 2020-05-10 09:16 | P.PN ---
Subjective Date of Service: 05/10/20 Chief Complaint: Respiratory failure Subjective: Improving, Doing well Physical Examination - Vital Signs Temperature: 97.0 F Blood Pressure: 135/81 Pulse: 91 Respirations: 18 Pulse Ox (%): 99 - Physical Exam General: Alert, In no apparent distress, Oriented x3, Cooperative HEENT: Atraumatic Neck: Supple Respiratory: Clear to auscultation bilaterally, Normal air movement Cardiovascular: Normal pulses, Regular rate/rhythm Neurological: Normal speech, Normal strength at 5/5 x4 extr, Normal tone Urinary: Other (No further hematuria noted in Waters catheter) - Studies Medications List Reviewed: Yes Assessment & Plan Discharge Plan: Home Plan to discharge in: Greater than 2 days Physician Review Additional Text: Impression: Hematuria etiology unknown, resolved likely irritation from Waters catheter Acute respiratory failure with hypoxia secondary to Acute on chronic systolic CHF with severe pulmonary hypertension Acute on chronic renal disease stage 5 now end-stage renal disease requiring dialysis Hypertension History of pacemaker GERD Diabetes mellitus type 2 insulin-dependent with hyperglycemia Plan: Hematuria etiology unknown, resolved likely irritation from Waters catheter: Lovenox has been discontinued. No more hematuria noted. Will discontinue Waters catheter. Patient with worsening renal function now end-stage renal disease requiring hemodialysis. Patient agrees with plan of care to start dialysis. Dialysis catheter to be placed today with initiation of dialysis. Will have social media project manager addressed outpatient dialysis setup. Will discuss further with nephrology. Acute on chronic renal disease stage 5 now end-stage renal disease requiring dialysis: Nephrology will start dialysis. Dialysis catheter be placed. Will discuss with social media project manager to help with outpatient set up of dialysis. Acute respiratory failure with hypoxia secondary to Acute on chronic systolic CHF with severe pulmonary hypertension: Patient has transitioned to oral Lasix and metolazone. Patient requiring dialysis. Overall stable. Hypertension: Continue medication History of pacemaker: Stable. GERD: Continue medication Diabetes mellitus type 2 insulin dependent: Continue to adjust insulin for better control. Time Spent Managing Pts Care (In Minutes): 55
[2020-05-10] MEDS ORDERED: propofoL 200 MG/20 ML VIAL IV ONE (09:37)
[2020-05-10] MEDS ORDERED: FENTANYL CITR 100 MCG/2 ML ONE (09:37)
[2020-05-10] MEDS ORDERED: LIDOCAINE 2% MPF 5 ML VIAL ONE (09:37)
--- NOTE | 2020-05-10 10:43 | P.OP ---
Preoperative diagnosis: End Stage Renal Disease Postoperative diagnosis: End Stage Renal Disease Primary procedure: Placement of Tunnelled Hemodialysis catheter in RIGHT internal jugular vein Secondary procedure: ultrasound and flouroscopy used Other procedure(s): micro set Anesthesia: MAC + Local Estimated blood loss: <5cc Specimen: none Findings: dark, non-pulsatile blood returned Complications: None Implants: 24 cm tunnelled hemodialysis catheter placed Transferred to: Recovery Room Condition: Good
[2020-05-10] MEDS ORDERED: ONDANSETRON 4 MG/2 ML VIAL ONE (10:49)
--- NOTE | 2020-05-10 11:13 | RAD REPORT ---
EXAM DESCRIPTION: RAD - Fluoroscopy <1 Hour - 05/10/2020 10:47 am FINDINGS: There are total of a 8 portable C-arm views obtained during fluoroscopic assisted placemen t of a dialysis catheter. No suspicious or unexpected findings. Fluoro time was 0.4 minutes. Cumulative dose was 5.31 mGy.
--- NOTE | 2020-05-10 11:17 | OP ---
Date of Procedure: 05/10/2020 Surgeon: Tang Frias MD, Preoperative Diagnosis: End-stage renal disease. Postoperative Diagnosis: End-stage renal disease. Procedure Performed: Placement of tunneled hemodialysis catheter in right internal jugular vein. Secondary Procedure: Ultrasound guidance used as well as fluoroscopy with intraoperative interpretat ion, microintroducer set was used. Anesthesia: MAC plus local with 0.25% Marcaine with epinephrine. Estimated Blood Loss: Less than 5 cc. Specimen: None. Findings: Dark nonpulsatile blood return. Fluoroscopy verified position of catheter. Complications: None. Implants: A 24 cm tunneled HemoSplit dialysis catheter placed in right internal jugular position. Disposition: The patient was transferred to recovery room in good condition. Procedure In Detail: After informed was obtained, the patient was brought to the operating room, pre pped and draped in the usual sterile fashion. After adequate anesthesia was achieved, the patient wa s placed in deep Trendelenburg. Ultrasound guidance was used to find the right internal jugular vein which was found to be patent. At this point, I anesthetized the area with 0.25% Marcaine with epine phrine. A microintroducer set was used to cannulate the internal jugular vein. I verified with ultr asound at this point. A microwire was advanced at this point. Fluoroscopy was used to confirm the p osition in the jugular vein up to the SVC confluence. At this point, sweta incision was made over the insertion site and the microintroducer sheath was introduced. Microwire out was called and the sindhu dard wire was placed in after removing the introducer sheath inner cannula. Fluoroscopy was used to verify position of the standard wire at this point, which was found to be in good anatomic position i n the SVC. At this point, I found a portion of the right chest. Anesthetized this area as well as t he tract to the insertion site. Made a small sweta incision and used a tunneling device, brought the 24 cm HemoSplit catheter out through the insertion site. Sequential dilatation using Seldinger techn ique and the introducer sheath was introduced. At this point, wire out was called and the catheter w as placed in through the introducer sheath. The introducer sheath was then removed and the catheter was flushed and pulled back dark, red nonpulsatile blood easily and flushed quite easily, was packed with heparinized saline 2 cc per port and position was verified with fluoroscopy. The area was copio usly irrigated. The catheter was secured to the chest wall as well as the insertion site was closed using a 3-0 nylon suture in an interrupted fashion with good approximation of tissues. Sterile dress ing was placed over top. The patient was taken out of the Trendelenburg and tolerated the procedure well without evidence of complication. All counts were correct at the end of the case. Stat chest x -ray will be performed in the PACU today. HITESH/SADIE Voice ID: [id number] Report ID: [id number]
--- NOTE | 2020-05-10 11:32 | RAD REPORT ---
EXAM DESCRIPTION: RAD - Chest Single View - 05/10/2020 11:26 am CLINICAL HISTORY: catheter placement COMPARISON: May 08 TECHNIQUE: AP portable chest image was obtained 05/10/2020 11:26 am . FINDINGS: Right-sided dialysis catheter is in place. Tip is in the mid SVC. There is no pneumothorax or acute lung parenchymal process. Left-sided pacemaker/defibrillator remains in place. IMPRESSION: Right-sided dialysis catheter placement in good position. No pneumothorax.
--- NOTE | 2020-05-10 13:07 | P.PN ---
Subjective Date of Service: 05/10/20 Chief Complaint: Respiratory failure Subjective pt is intubated , Hx obtained from chart A 64-year-old man with history of CKD IIIB/IV with cr trending up from 2.6 in 2019 to 3.6 recently , with one reading of cr 3.0 in March, CAD S/P CABG, CHF S/P AICD, DM and HTN pt presented with shortness of breath , , required intubation pt Bun /cr cont to decline , will start on HD today today Bun/cr cont to trend up will start on HD today looks dry- euvolemic, will dc diuretics HD tomorrow , will monitor RFT while off HD Physical exam general: awake and alert , NAD Neck; Supple, No elevated JVD hear: RRR, normal S1,2 no murmur or rub Chest: CTAB, no rales or wheezes Abdomen: Soft , Nt Extremities No edema , no ulcer A/P CHE on CKD IIIb/IV CKD due to DM and atherosclerotic disease Bun/cr cont to trend up will start on HD today looks dry- euvolemic, will dc diuretics HD tomorrow , will monitor RFT while off HD CHF exacerbation had AICD looks dry- euvolemic, will dc diuretics Hypernatremia resolved DM Cont insulin Pneumonia completed ABx Acute resp failure multifactorial due to Pneumonia and fluid overload completed Abx Total time spent 30min Physical Examination - Vital Signs Temperature: 97.6 F Blood Pressure: 130/73 Pulse: 78 Respirations: 16 Pulse Ox (%): 99 - Studies Medications List Reviewed: Yes Assessment And Plan Physician Review: Patient Assessed, Agree with Above Assessment and Plan
[2020-05-10] MEDS: INSULIN GLARGINE 100 UNITS/ML SQ SCH (22:34)
[2020-05-10] MEDS: SODIUM CHLORIDE 0.9% 10ML INJ IV PRN (22:35)
[2020-05-11 06:09] LABS: Absolute Lymphocytes (CBC) 2.5 K/uL (0.7-4.9); Hematocrit 35.5 % (39.6-49.0); Lymphocytes % 17.7 % (15.3-44.8); MPV 7.1 fL (7.6-11.3)
[2020-05-11 06:21] LABS: Magnesium 2.5 mg/dL (1.8-2.4); Potassium 3.5 mmol/L (3.5-5.1)
[2020-05-11] MEDS: INSULIN -REGULAR HUMAN 50 UNIT/0.5 ML ML SQ SCH ×4 (08:54→21:02)
[2020-05-11] MEDS: POTASSIUM CL SA 10 MEQ TAB PO SCH (08:55)
[2020-05-11] MEDS: JUVEN PACKET PO SCH ×2 (08:55→21:04)
[2020-05-11] MEDS: FUROSEMIDE 40 MG TABLET PO SCH ×3 (08:55→21:03)
[2020-05-11] MEDS: THIAMINE HCL 100 MG TABLET PO SCH (08:56)
[2020-05-11] MEDS: SILDENAFIL CITRATE 20 MG TABLET PO SCH (08:56)
[2020-05-11] MEDS: PANTOPRAZOLE 40 MG INJ IVP SCH (08:56)
--- NOTE | 2020-05-11 09:43 | P.PN ---
Subjective Date of Service: 05/11/20 Chief Complaint: Respiratory failure Subjective: Improving, Doing well Physical Examination - Vital Signs Temperature: 97.4 F Blood Pressure: 153/78 Pulse: 70 Respirations: 16 Pulse Ox (%): 98 - Physical Exam General: Alert, In no apparent distress, Oriented x3, Cooperative HEENT: Atraumatic Neck: Supple Respiratory: Clear to auscultation bilaterally, Normal air movement Cardiovascular: Normal pulses, Regular rate/rhythm Gastrointestinal: Normal bowel sounds, No masses, No rebound, No guarding Neurological: Normal speech, Normal strength at 5/5 x4 extr, Normal tone, Normal affect - Studies Medications List Reviewed: Yes Assessment & Plan Discharge Plan: Home Plan to discharge in: 48 Hours Physician Review Additional Text: Impression: Hematuria etiology unknown, resolved likely irritation from Waters catheter Acute respiratory failure with hypoxia secondary to Acute on chronic systolic CHF with severe pulmonary hypertension Acute on chronic renal disease stage 5 now end-stage renal disease requiring dialysis Hypertension History of pacemaker GERD Diabetes mellitus type 2 insulin-dependent with hyperglycemia Plan: Hematuria etiology unknown, resolved likely irritation from Waters catheter: Lovenox has been discontinued. Waters catheter has been discontinued. Patient had dialysis catheter placed. Now on hemodialysis. Overall stable. Continue with Nephrology recommendations. Social work helping on outpatient dialysis set up. Likely home on Wednesday if this can be all arrange. Acute on chronic renal disease stage 5 now end-stage renal disease requiring dialysis: Patient now on dialysis. Continue with nephrology recommendation. Social work to help with outpatient set up of dialysis. Acute respiratory failure with hypoxia secondary to Acute on chronic systolic CHF with severe pulmonary hypertension: Patient has transitioned to oral Lasix and metolazone. Patient requiring dialysis. Overall stable. Hypertension: Continue medication History of pacemaker: Stable. GERD: Continue medication Diabetes mellitus type 2 insulin dependent: Continue to adjust insulin for better control. Time Spent Managing Pts Care (In Minutes): 55
[2020-05-11] MEDS: PANTOPRAZOLE 40MG TABLET PO SCH (16:37)
[2020-05-11] MEDS: INSULIN GLARGINE 100 UNITS/ML SQ SCH (21:02)
--- NOTE | 2020-05-11 21:46 | PN ---
Date of Progress Note: 05/11/2020 Subjective: The patient was admitted with cardiorenal, respiratory failure, intubated, extubated, was started on Lasix drip and then weaned. Kidney function continues to decline, starts being uremic. The patient was started on dialysis, had session of dialysis yesterday. Physical Examination: Vital Signs: Blood pressure 119/68, pulse of 83. The patient had a good ultrafiltration. Chest: Crackles bilateral. Heart: S1, S2. Regular. Systolic murmur. Abdomen: Soft, nontender. Extremities: Trace edema. Neuro: Alert, statin, tremor. Laboratory Data: WBC 14, H and H 11.9/35.5, platelets 286. Sodium 134, potassium 3.5, bicarb 30, BUN 80, creatinine 3.7, calcium 8.9, magnesium 2.5. Current Medications: Include Revatio, heparin, Lasix 80 t.i.d., Zofran, simethicone, insulin. Assessment And Plan: 1. Chronic kidney disease and progression to end-stage renal disease, over volume. I am going to continue the patient on dialysis. We will arrange for the patient for dialysis, Wednesday, Wednesday, Wednesday and we will follow up. 2. Secondary hyperparathyroidism, stable. 3. Anemia of chronic kidney disease. Continue JOSE. 4. Hypokalemia. The patient is going to be dialyzed on high potassium bath. 5. Uremic encephalopathy. The patient is going to be continued on dialysis and we will follow up. 6. Diabetes by primary. 7. Coronary artery disease with congestive heart failure. We will try to establish better volume control with the diuresis and dialysis. Time spent coordinating the care, discuss him with all of our team members including othere oracle manufacturing consultant and hospitalist and [id number] with the patient and please go out of 35 min HOMER Voice ID: [id number] Report ID: [id number] NATY
[2020-05-12 05:45] LABS: Absolute Lymphocytes (CBC) 2.9 K/uL (0.7-4.9); Basophils % 0.6 % (0-1.3); Hematocrit 36.5 % (39.6-49.0); Lymphocytes % 17.4 % (15.3-44.8); MPV 7.3 fL (7.6-11.3); RBC Red Blood Cell Count 4.04 M/uL (4.33-5.43)
[2020-05-12 06:06] LABS: Potassium 3.6 mmol/L (3.5-5.1)
[2020-05-12] MEDS: JUVEN PACKET PO SCH ×2 (08:53→21:00)
[2020-05-12] MEDS: PANTOPRAZOLE 40MG TABLET PO SCH ×2 (08:53→16:34)
[2020-05-12] MEDS: THIAMINE HCL 100 MG TABLET PO SCH (08:54)
[2020-05-12] MEDS: INSULIN -REGULAR HUMAN 50 UNIT/0.5 ML ML SQ SCH ×4 (08:54→21:46)
[2020-05-12] MEDS: POTASSIUM CL SA 10 MEQ TAB PO SCH (08:54)
[2020-05-12] MEDS: FUROSEMIDE 40 MG TABLET PO SCH ×2 (08:55→21:45)
[2020-05-12] MEDS: SILDENAFIL CITRATE 20 MG TABLET PO SCH (08:55)
[2020-05-12] MEDS: PSYLLIUM 1 PKT PO SCH (08:55)
[2020-05-12] MEDS: LACTULOSE 20 GM/30 ML UCUP PO PRN (11:14)
--- NOTE | 2020-05-12 11:48 | P.PN ---
Subjective Date of Service: 05/12/20 Chief Complaint: Respiratory failure Subjective: Other (Patient doing well this time. Report some constipation) Physical Examination - Vital Signs Temperature: 97.8 F Blood Pressure: 95/52 Pulse: 80 Respirations: 20 Pulse Ox (%): 96 - Physical Exam General: Alert, In no apparent distress, Oriented x3, Cooperative HEENT: Atraumatic Neck: Supple Respiratory: Clear to auscultation bilaterally, Normal air movement Cardiovascular: Normal pulses, Regular rate/rhythm Gastrointestinal: Normal bowel sounds, Soft and benign, Non-distended, No tenderness Integumentary: No tenderness/swelling, No erythema, No warmth, No cyanosis Neurological: Normal speech, Normal strength at 5/5 x4 extr, Normal tone, Normal affect - Studies Medications List Reviewed: Yes Assessment & Plan Discharge Plan: Home Plan to discharge in: 24 Hours Physician Review Additional Text: Impression: Hematuria etiology unknown, resolved likely irritation from Waters catheter Acute respiratory failure with hypoxia secondary to Acute on chronic systolic CHF with severe pulmonary hypertension Acute on chronic renal disease stage 5 now end-stage renal disease requiring dialysis Hypertension History of pacemaker GERD Diabetes mellitus type 2 insulin-dependent with hyperglycemia Plan: Hematuria etiology unknown, resolved likely irritation from Waters catheter: Patient no longer on Lovenox and Waters catheter has been removed. Patient doing well this time. Hematuria resolved. Patient now on dialysis. Will discontinue Lasix. Patient in process with set up for outpatient dialysis. Social work to continued to set this up. Patient with some constipation. Will provide medication. Anticipate possible discharge as early as tomorrow to home with home health and physical therapy if outpatient dialysis can be arranged. I will turn the service over to the hospitalist team tomorrow. I will go over plan of care with him. Acute on chronic renal disease stage 5 now end-stage renal disease requiring dialysis: Patient now on dialysis. I will discontinue Lasix. Continue with nephrology recommendation. Social work to help with outpatient set up of dialysis. Acute respiratory failure with hypoxia secondary to Acute on chronic systolic CHF with severe pulmonary hypertension: Blood pressure slightly decreased. Patient now on dialysis. Will discontinue Lasix as there is no evidence of edema to the lower extremity. Patient on room-air saturations. Will discuss with nephrology. Will need to monitor this closely as patient may require restart of Lasix. Dialysis seems to get have this under control. Hypertension: Continue medication History of pacemaker: Stable. GERD: Continue medication Diabetes mellitus type 2 insulin dependent: Continue to adjust insulin for better control. Time Spent Managing Pts Care (In Minutes): 55
--- NOTE | 2020-05-12 13:07 | PN ---
Date of Progress Note: 05/12/2020 Subjective: The patient was admitted with CHF exacerbation, cardiorenal syndrome. The patient developed worsening on the kidney function. Physical Examination: Vital Signs: Blood pressure 95/52, pulse of 85, afebrile. The patient had urine output of 700. On dialysis, we removed 300. Chest: Crackles bilateral base. Heart: S1, S2. Systolic murmur. Abdomen: Soft, nontender. Extremities: Trace edema. Neurologic: Alert, oriented. No focal. Laboratory Data: WBC 16.6, H and H 11.9/36.5. Sodium 138, potassium 3.6, bicarb 31, BUN 100, creatinine 4, GFR of 15, calcium 9.6. Current Medications: The patient on include heparin, Revatio, Tylenol, lactulose, simethicone, pantoprazole, insulin, Zosyn. Assessment And Plan: 1. Acute kidney injury on advanced chronic kidney disease, dialysis dependent. I am going to continue the patient on dialysis Wednesday, Wednesday, Wednesday. Scheduled for dialysis tomorrow. 2. Hypertension. We will utilize the blood pressure for more diuresis. We will continue Lasix orally about b.i.d. to avoid low blood pressure on dialysis secondary to challenging. 3. Congestive heart failure, over volume. We will continue to utilize the blood pressure for more ultrafiltration and diuresis. 4. Respiratory failure secondary to over volume, intubated, extubated. We will follow up with Pulmonary. 5. Pulmonary hypertension. Continue Revatio. Time spent coordinating the care, discuss him with all of our team members including othere communications consultant and hospitalist and [id number] with the patient and please go out of 35 min HOMER Voice ID: [id number] Report ID: [id number] NATY
--- NOTE | 2020-05-12 15:37 | RAD REPORT ---
EXAM DESCRIPTION: RAD - Chest Single View - 05/12/2020 3:02 pm CLINICAL HISTORY: COPD COMPARISON: May 10 TECHNIQUE: AP portable chest image was obtained 05/12/2020 3:02 pm . FINDINGS: Lung volumes are very low, further reduced from the May 10 imaging. No peripheral ma ss, consolidation or pulmonary edema. Defibrillator is present from left subclavian approach. Right-sided dialysis catheter in place. Cardi ac silhouette is enlarged due to body habitus affects, portable imaging, lordotic positioning and sha llow inspiration. No measurable pleural effusion and no pneumothorax. No acute bony abnormality seen. No acute aortic findings suspected. IMPRESSION: Exam is limited as detailed. No acute cardiopulmonary finding seen.
[2020-05-12] MEDS: INSULIN GLARGINE 100 UNITS/ML SQ SCH (21:46)
[2020-05-13 06:05] LABS: Basophils % 1.4 % (0-1.3); Hematocrit 36.4 % (39.6-49.0); Lymphocytes % 19.3 % (15.3-44.8); MPV 7.1 fL (7.6-11.3)
[2020-05-13 06:32] LABS: Magnesium 2.6 mg/dL (1.8-2.4); Potassium 3.6 mmol/L (3.5-5.1)
[2020-05-13 07:09] VITALS: BMI 31.9
[2020-05-13] MEDS: PANTOPRAZOLE 40MG TABLET PO SCH ×2 (07:50→16:18)
[2020-05-13] MEDS: INSULIN -REGULAR HUMAN 50 UNIT/0.5 ML ML SQ SCH ×4 (07:50→21:53)
[2020-05-13] MEDS: THIAMINE HCL 100 MG TABLET PO SCH (07:51)
[2020-05-13] MEDS: SILDENAFIL CITRATE 20 MG TABLET PO SCH (07:51)
[2020-05-13] MEDS: PSYLLIUM 1 PKT PO SCH (07:51)
[2020-05-13] MEDS: FUROSEMIDE 40 MG TABLET PO SCH ×2 (07:51→21:52)
[2020-05-13] MEDS: JUVEN PACKET PO SCH ×2 (07:52→21:54)
[2020-05-13] MEDS ORDERED: MIDODRINE HCL 5 MG TABLET PO PRN (09:17)
[2020-05-13] MEDS: LACTULOSE 20 GM/30 ML UCUP PO PRN (14:15)
[2020-05-13] MEDS: INSULIN GLARGINE 100 UNITS/ML SQ SCH (21:53)
--- NOTE | 2020-05-14 01:55 | PN ---
Date of Progress Note: 05/13/2020 Chief Complaint: Severe advanced chronic kidney disease accelerated by acute kidney injury, fluid ov erload, shortness of breath. Subjective: The patient has history of respiratory failure, cardiorenal syndrome. He was intubated for severe respiratory failure with congestive heart failure. Subsequently extubated, was started on Lasix and weaned off Lasix drip. Renal function continues to decline. The patient became uremic an d dialysis was started for advanced chronic kidney disease with uremic symptoms. The patient will co ntinue dialysis for metabolic clearance and ultrafiltration. Review of Systems: Denies PND or orthopnea. Physical Examination: Lungs: Diminished breath sounds at bases. Heart: S1, S2. Abdomen: Soft, benign. Extremities: Edema present. Laboratory Data: Sodium 134, potassium 3.5, bicarbonate 30, BUN 80, creatinine 3.7, magnesium 2.5. Impression And Plan: 1.Chronic kidney disease, advanced with progression to end-stage renal disease, cardiorenal syndrome , and hypervolemia, respiratory failure, secondary hyperparathyroidism. The patient will continue di alysis. For secondary hyperparathyroidism, the patient will continue low phosphorus diet and binders will be adjusted to control hyperphosphatemia. 2.Diabetes mellitus with renal manifestation. Continue insulin. Avoid metformin. 3.Coronary artery disease, congestive heart failure. Continue ultrafiltration to treat volume overload. Continue low-sodium diet. EB/MODL Voice ID: [id number] Report ID: [id number]
[2020-05-14] MEDS: INSULIN -REGULAR HUMAN 50 UNIT/0.5 ML ML SQ SCH ×4 (07:30→21:06)
[2020-05-14] MEDS: SILDENAFIL CITRATE 20 MG TABLET PO SCH (09:00)
[2020-05-14] MEDS: FUROSEMIDE 40 MG TABLET PO SCH ×2 (09:01→21:05)
[2020-05-14] MEDS: PSYLLIUM 1 PKT PO SCH (09:01)
[2020-05-14] MEDS: THIAMINE HCL 100 MG TABLET PO SCH (09:01)
[2020-05-14] MEDS: PANTOPRAZOLE 40MG TABLET PO SCH ×2 (09:01→16:30)
[2020-05-14] MEDS: JUVEN PACKET PO SCH ×2 (09:02→21:06)
--- NOTE | 2020-05-14 12:47 | P.PN ---
Subjective Date of Service: 05/14/20 Chief Complaint: Respiratory failure Subjective pt is intubated , Hx obtained from chart A 64-year-old man with history of CKD IIIB/IV with cr trending up from 2.6 in 2019 to 3.6 recently , with one reading of cr 3.0 in March, CAD S/P CABG, CHF S/P AICD, DM and HTN pt presented with shortness of breath , , required intubation pt Bun /cr cont to decline , will start on HD today Today no new complaints HD tomorrow pending outpatient dialysis arrangement Physical exam general: awake and alert , NAD Neck; Supple, No elevated JVD hear: RRR, normal S1,2 no murmur or rub Chest: CTAB, no rales or wheezes Abdomen: Soft , Nt Extremities No edema , no ulcer A/P CHE on CKD IIIb/IV CKD due to DM and atherosclerotic disease Bun/cr cont to trend up Cont HD MWF CHF exacerbation euvolemic now had AICD Cont HD Hypernatremia resolved DM Cont insulin Pneumonia completed ABx Total time spent 30min Physical Examination - Vital Signs Temperature: 97.3 F Blood Pressure: 128/70 Pulse: 79 Respirations: 17 Pulse Ox (%): 97 - Studies Medications List Reviewed: Yes Assessment And Plan Physician Review: Patient Assessed, Agree with Above Assessment and Plan
[2020-05-14 19:16] LABS: HBsAG Nonreactive (Nonreactive)
[2020-05-14 19:47] LABS: Hepatitis C Virus RNA (PCR)log <1.18 log IU/mL
--- NOTE | 2020-05-14 20:09 | P.PN ---
Subjective Date of Service: 05/13/20 Patient is doing well with no new complaints. Awaiting for outpatient hemodialysis to be arranged once his hepatitis panel gets completed Review of Systems 10-point ROS is otherwise unremarkable Physical Examination - Vital Signs Temperature: 97.8 F Blood Pressure: 139/71 Pulse: 90 Respirations: 18 Pulse Ox (%): 99 - Physical Exam General: Alert, In no apparent distress, Oriented x3 Respiratory: Clear to auscultation bilaterally, Normal air movement Cardiovascular: Regular rate/rhythm, Normal S1 S2, No murmurs Gastrointestinal: Normal bowel sounds, Soft and benign, Non-distended, No tenderness Musculoskeletal: No clubbing, No swelling, No tenderness Neurological: Sensation intact, Cranial nerves 3-12 intact - Studies Medications List Reviewed: Yes Assessment & Plan - Problems (Diagnosis) (1) Acute on chronic systolic CHF (congestive heart failure) Current Visit: Yes Status: Acute (2) Severe pulmonary arterial systolic hypertension Current Visit: Yes Status: Acute (3) Diabetes mellitus Current Visit: Yes Status: Acute (4) Acute respiratory failure with hypoxia Current Visit: No Status: Acute (5) CKD (chronic kidney disease) stage 3, GFR 30-59 ml/min Onset Date: 09/14/16 Current Visit: No Status: Chronic (6) Essential hypertension Onset Date: 09/14/16 Current Visit: No Status: Chronic (7) History of permanent cardiac pacemaker placement Current Visit: No Status: Chronic (8) Upper GI bleeding Current Visit: Yes Status: Acute - Plan Plan: Continue with plan of care as mentioned below 1. Outpt HD arrangements 2. Continue diuresing as needed 3. Monitor labs closely 4. Appreciate Nephrology assistance 5. Echo with severe pulmonary HTN; EF of 42% 6. Continue with meds for ESRD 7. GI/DVT prophylaxis Discharge Plan: Home Plan to discharge in: Greater than 2 days - Advance Directives Does patient have a Living Will: No Does patient have a Durable POA for Healthcare: No - Code Status/Comfort Care Code Status: Full Code Physician Review: Patient Assessed, Agree with Above Assessment and Plan Critical Care: No Time Spent Managing PTS Care (In Minutes): 35
--- NOTE | 2020-05-14 20:11 | P.PN ---
Subjective Date of Service: 05/14/20 No changes. Doing well. Awaiting for arrangements for outpatient hemodialysis. Review of Systems 10-point ROS is otherwise unremarkable Physical Examination - Vital Signs Temperature: 97.8 F Blood Pressure: 139/71 Pulse: 90 Respirations: 18 Pulse Ox (%): 99 - Physical Exam General: Alert, In no apparent distress, Oriented x3 Respiratory: Clear to auscultation bilaterally, Normal air movement Cardiovascular: Regular rate/rhythm, Normal S1 S2 Gastrointestinal: Normal bowel sounds, Soft and benign, Non-distended - Studies Medications List Reviewed: Yes Assessment & Plan - Problems (Diagnosis) (1) Acute on chronic systolic CHF (congestive heart failure) Current Visit: Yes Status: Acute (2) Severe pulmonary arterial systolic hypertension Current Visit: Yes Status: Acute (3) Diabetes mellitus Current Visit: Yes Status: Acute (4) Acute respiratory failure with hypoxia Current Visit: No Status: Acute (5) CKD (chronic kidney disease) stage 3, GFR 30-59 ml/min Onset Date: 09/14/16 Current Visit: No Status: Chronic (6) Essential hypertension Onset Date: 09/14/16 Current Visit: No Status: Chronic (7) History of permanent cardiac pacemaker placement Current Visit: No Status: Chronic (8) Upper GI bleeding Current Visit: Yes Status: Acute - Plan Plan: Continue with plan of care as mentioned below 1. Outpt HD arrangements 2. Lasix orally; Monitor labs closely 3. Continue with PT 4. Appreciate Nephrology assistance 5. Echo reviewed; outpt Cardiology follow-up 6. Continue with meds for ESRD 7. GI/DVT prophylaxis Discharge Plan: Home Plan to discharge in: Greater than 2 days - Advance Directives Does patient have a Living Will: No Does patient have a Durable POA for Healthcare: No - Code Status/Comfort Care Code Status: Full Code Physician Review: Patient Assessed, Agree with Above Assessment and Plan Critical Care: No Time Spent Managing PTS Care (In Minutes): 35
[2020-05-14] MEDS: INSULIN GLARGINE 100 UNITS/ML SQ SCH (21:05)
[2020-05-15] MEDS: PANTOPRAZOLE 40MG TABLET PO SCH ×2 (07:30→16:30)
[2020-05-15] MEDS: INSULIN -REGULAR HUMAN 50 UNIT/0.5 ML ML SQ SCH ×4 (07:30→21:00)
[2020-05-15] MEDS: PSYLLIUM 1 PKT PO SCH (08:56)
[2020-05-15] MEDS: FUROSEMIDE 40 MG TABLET PO SCH ×2 (08:56→21:48)
[2020-05-15] MEDS: THIAMINE HCL 100 MG TABLET PO SCH (08:56)
[2020-05-15] MEDS: SILDENAFIL CITRATE 20 MG TABLET PO SCH (08:56)
[2020-05-15] MEDS: JUVEN PACKET PO SCH ×2 (08:59→21:06)
--- NOTE | 2020-05-15 11:35 | P.DS ---
Discharge Date: 05/15/20 Disposition: ROUTINE DISCHARGE Discharge Condition: GOOD Reason for Admission: Respiratory failure Consultations: NEPHROLOGY PULMONARY CARDIOLOGY GENERAL SURGERY - Problems (1) Acute on chronic systolic CHF (congestive heart failure) Current Visit: Yes Status: Acute (2) Severe pulmonary arterial systolic hypertension Current Visit: Yes Status: Acute (3) Diabetes mellitus Current Visit: Yes Status: Acute (4) Acute respiratory failure with hypoxia Current Visit: No Status: Acute (5) CKD (chronic kidney disease) stage 3, GFR 30-59 ml/min Onset Date: 09/14/16 Current Visit: No Status: Chronic (6) Essential hypertension Onset Date: 09/14/16 Current Visit: No Status: Chronic (7) History of permanent cardiac pacemaker placement Current Visit: No Status: Chronic (8) Upper GI bleeding Current Visit: Yes Status: Acute Brief History of Present Illness: PATIENT IS A 64-YEAR-OLD GENTLEMAN WHO CAME TO THE HOSPITAL WITH RESPIRATORY DISTRESS. PATIENT WAS VOLUME OVERLOADED AND HAD TO BE INTUBATED AND WAS STARTED ON IV LASIX DRIP INTO THE INTENSIVE CARE UNIT. PATIENT IS SEVERELY HYPOXIC AND HAD DIFFUSE ANASARCA. PATIENT WAS ADMITTED TO THE INTENSIVE CARE UNIT FOR AGGRESSIVE MANAGEMENT. Hospital Course: PATIENT WAS DIURESED AGGRESSIVELY IN THE INTENSIVE CARE UNIT. WERE ABLE TO GET HIM DIURESED AND OFF THE MECHANICAL VENTILATOR. PATIENT WAS DIURESING MORE EFFECTIVELY AND WAS ABLE TO START WORKING WITH PHYSICAL THERAPY. WE WERE ABLE TO MOVE THE PATIENT TO THE GENERAL MEDICAL FLOOR. HOWEVER, HIS RENAL FUNCTION CONTINUED TO DECLINE. HE WAS STARTED ON HEMODIALYSIS. HIS HEPATITIS PANEL WAS NEGATIVE. ARRANGE FOR OUTPATIENT HEMODIALYSIS. AT THIS TIME PATIENT IS STABLE FOR DISCHARGE ONCE THIS IS ARRANGED. OUTPATIENT FOLLOW WITH NEPHROLOGY AND CARDIOLOGY IN 1-2 WEEKS. FOLLOW WITH PULMONARY NEEDED. Vital Signs/Physical Exam: Temp Pulse Resp BP Pulse Ox 97.5 F 84 18 132/74 98 05/15/20 04:00 05/15/20 08:56 05/15/20 04:00 05/15/20 08:56 05/15/20 04:00 General: Alert, In no apparent distress, Oriented x3 Laboratory Data at Discharge: WBC 15.7 K/uL (4.3-10.9) H 05/13/20 05:41 Hgb 12.0 g/dL (13.6-17.9) L 05/13/20 05:41 Hct 36.4 % (39.6-49.0) L 05/13/20 05:41 Plt Count 249 K/uL (152-406) 05/13/20 05:41 PT 13.0 SECONDS (9.5-12.5) H 05/02/20 05:02 INR 1.10 05/02/20 05:02 APTT 28.7 SECONDS (24.3-36.9) 05/02/20 05:02 Sodium 136 mmol/L (136-145) 05/13/20 05:41 Potassium 3.6 mmol/L (3.5-5.1) 05/13/20 05:41 BUN 116 mg/dL (7-18) H 05/13/20 05:41 Creatinine 4.22 mg/dL (0.55-1.3) H 05/13/20 05:41 Glucose 218 mg/dL (74-106) H 05/13/20 05:41 Uric Acid 10.4 mg/dL (3.5-7.2) H 05/03/20 04:02 Phosphorus 3.9 mg/dL (2.5-4.9) 05/07/20 05:11 Magnesium 2.6 mg/dL (1.8-2.4) H 05/13/20 05:41 Total Bilirubin 0.7 mg/dL (0.2-1.0) 05/05/20 05:30 AST 19 U/L (15-37) 05/05/20 05:30 ALT 60 U/L (12-78) 05/05/20 05:30 Alkaline Phosphatase 106 U/L (45-117) 05/05/20 05:30 Troponin I 1.69 ng/mL (0.0-0.045) H* 04/27/20 11:05 Lipase 126 U/L (73-393) 04/26/20 23:50 Home Medications: levETIRAcetam [Levetiracetam] 500 mg PO BID 09/11/16 Atorvastatin Calcium 40 mg PO DAILY 06/30/19 Isosorbide Mononitrate [Isosorbide Mononitrate ER] 30 mg PO DAILY 09/09/19 Ferrous Sulfate [Ferrous Sulfate*] 325 mg PO DAILY 03/22/20 allopurinoL [Zyloprim*] 100 mg PO DAILY #30 tab 03/25/20 Furosemide [Lasix] 80 mg PO Q12H #60 tablet 05/15/20 Insulin Detemir [Levemir] 15 units SQ BEDTIME #1 syr 05/15/20 Berto [Berto*] 1 pkt PO BID #60 powd.pack 05/15/20 Pantoprazole [Protonix Tab*] 40 mg PO BIDAC #60 tab 05/15/20 Psyllium [Metamucil (Hydrocil)*] 1 pkt PO DAILY #30 packet 05/15/20 Sildenafil Citrate [Revatio*] 20 mg PO DAILY #30 tablet 05/15/20 Simethicone [Mylicon*] 80 mg PO TID PRN #30 tab 05/15/20 Thiamine HCl [Vitamin B-1*] 100 mg PO DAILY #30 tablet 05/15/20 New Medications: Berto [Berto*] 1 pkt PO BID #60 powd.pack Furosemide [Lasix] 80 mg PO Q12H #60 tablet Insulin Detemir [Levemir] 15 units SQ BEDTIME #1 syr Psyllium [Metamucil (Hydrocil)*] 1 pkt PO DAILY #30 packet Simethicone [Mylicon*] 80 mg PO TID PRN #30 tab PRN Reason: Abdominal Cramps Pantoprazole [Protonix Tab*] 40 mg PO BIDAC #60 tab Sildenafil Citrate [Revatio*] 20 mg PO DAILY #30 tablet Thiamine HCl [Vitamin B-1*] 100 mg PO DAILY #30 tablet Patient Discharge Instructions: OK TO DC IV AND DC HOME. FOLLOW-UP WITH PRIMARY CARE PROVIDER IN 1-2 WEEKS. FOLLOW-UP WITH CARDIOLOGY IN 1-2 WEEKS. FOLLOW UP WITH NEPHROLOGY IN 1-2 WEEKS AND ALSO FOLLOW UP AT DIALYSIS CLINIC FOR HEMODIALYSIS. RETURN TO THE ER IF SYMPTOMS WORSEN. CALL DR. DUTTA AT [phone] IF ANY QUESTIONS REGARDING HOSPITAL STAY. PLEASE CALL THE FLOOR AT [phone] IF ANY MEDICATION OR NURSING QUESTIONS. Diet: Renal Activity: Fall precautions Time spent managing pt's care (in minutes): 35
--- NOTE | 2020-05-15 11:35 | PN ---
Date of Progress Note: 05/15/2020 Subjective: The patient was admitted with acute kidney injury on advanced chronic kidney disease. The patient had intubated, extubated, and placed on Lasix drip. Then, kidney function continued to decline. The patient developed uremic symptoms. The patient was initiated on renal replacement therapy, started on dialysis. The patient being tolerating the dialysis very well. The patient already set up for outpatient dialysis. Physical Examination: Vital Signs: Blood pressure 132/74, pulse of 84, afebrile. The patient had good urine output. Chest: Clear to auscultation. Heart: S1, S2. Regular. Abdomen: Soft, nontender. Extremities: No edema. Neuro: Alert. No focality. Laboratory Data: WBC 15.7, H and H 12/36.4. Sodium 136, potassium 3.6, bicarb 31, BUN 116, creatinine 4.2, calcium 9.8. Current Medications: The patient on its include; 1. Zofran. 2. Pantoprazole. 3. Lasix. 4. Insulin. Assessment And Plan: 1. End-stage renal disease, dialysis dependent. We will continue the patient on dialysis. The patient is going to be due for dialysis today. I am going to go ahead and increase his blood flow to 350 to achieve better clearance and we will follow up. The patient will continue to challenge on the dialysis. 2. Hypertension, controlled, optimal. Continue current medication. We will try to utilize the blood pressure for more ultrafiltration. 3. Anemia of chronic kidney disease. No need for JOSE. 4. Congestive heart failure, currently normal volume. Continue to maintain Lasix and diuresis with ultrafiltration on the dialysis. 5. Respiratory failure, resolved. 6. Hyperkalemia, resolved. 7. Deconditioning. Continue PT/OT. The patient cleared from the renal standpoint for discharge planning. Time spent coordinating the care, discuss him with all of our team members including othere sap security consultant and hospitalist and [id number] with the patient and please go out of 35 min RHETT/SADIE Voice ID: [id number] Report ID: [id number] NATY
[2020-05-15] MEDS: INSULIN GLARGINE 100 UNITS/ML SQ SCH (21:48)
[2020-05-15 22:47] VITALS: O2SAT 97
[2020-05-16] MEDS: INSULIN -REGULAR HUMAN 50 UNIT/0.5 ML ML SQ SCH (07:30)
[2020-05-16] MEDS: THIAMINE HCL 100 MG TABLET PO SCH (08:24)
[2020-05-16] MEDS: FUROSEMIDE 40 MG TABLET PO SCH (08:24)
[2020-05-16] MEDS: PANTOPRAZOLE 40MG TABLET PO SCH (08:24)
[2020-05-16] MEDS: SILDENAFIL CITRATE 20 MG TABLET PO SCH (08:24)
[2020-05-16] MEDS: PSYLLIUM 1 PKT PO SCH (08:24)
[2020-05-16] MEDS: JUVEN PACKET PO SCH (08:25)
--- NOTE | 2020-05-20 07:11 | P.PN ---
Date of Service: 05/15/20 Subjective Date of Service: 05/15/20 Session continues to do well. Awaiting for arrangements for Outpatient hemodialysis. Review of Systems 10-point ROS is otherwise unremarkable Physical Examination - Vital Signs Reviewed - Physical Exam General: Alert, In no apparent distress, Oriented x3 Respiratory: Clear to auscultation bilaterally, Normal air movement Cardiovascular: Regular rate/rhythm, Normal S1 S2 Gastrointestinal: Normal bowel sounds, Soft and benign, Non-distended - Studies Medications List Reviewed: Yes Assessment & Plan - Problems (Diagnosis) (1) Acute on chronic systolic CHF (congestive heart failure) Current Visit: Yes Status: Acute (2) Severe pulmonary arterial systolic hypertension Current Visit: Yes Status: Acute (3) Diabetes mellitus Current Visit: Yes Status: Acute (4) Acute respiratory failure with hypoxia Current Visit: No Status: Acute (5) CKD (chronic kidney disease) stage 3, GFR 30-59 ml/min Onset Date: 09/14/16 Current Visit: No Status: Chronic (6) Essential hypertension Onset Date: 09/14/16 Current Visit: No Status: Chronic (7) History of permanent cardiac pacemaker placement Current Visit: No Status: Chronic (8) Upper GI bleeding Current Visit: Yes Status: Acute - Plan Plan: Continue with plan of care as mentioned below 1. Outpt HD arrangements 2. Lasix orally; Monitor labs closely 3. Continue with PT 4. Appreciate Nephrology assistance 5. Echo reviewed; outpt Cardiology follow-up 6. Continue with meds for ESRD 7. GI/DVT prophylaxis Discharge Plan: Home Plan to discharge in: Greater than 2 days - Advance Directives Does patient have a Living Will: No Does patient have a Durable POA for Healthcare: No - Code Status/Comfort Care Code Status: Full Code Physician Review: Patient Assessed, Agree with Above Assessment and Plan Critical Care: No Time Spent Managing PTS Care (In Minutes): 35
--- NOTE | 2020-05-20 07:13 | P.DS ---
Discharge Date: 05/16/20 Disposition: DC HOME/HOME HEALTH CARE Discharge Condition: GOOD Reason for Admission: Respiratory failure Consultations: NEPHROLOGY PULMONARY CARDIOLOGY GENERAL SURGERY - Problems (1) Acute on chronic systolic CHF (congestive heart failure) Status: Acute (2) Severe pulmonary arterial systolic hypertension Status: Acute (3) Diabetes mellitus Status: Acute (4) Acute respiratory failure with hypoxia Status: Acute (5) CKD (chronic kidney disease) stage 3, GFR 30-59 ml/min Onset Date: 09/14/16 Status: Chronic (6) Essential hypertension Onset Date: 09/14/16 Status: Chronic (7) History of permanent cardiac pacemaker placement Status: Chronic (8) Upper GI bleeding Status: Acute Brief History of Present Illness: PATIENT IS A 64-YEAR-OLD GENTLEMAN WHO CAME TO THE HOSPITAL WITH RESPIRATORY DISTRESS. PATIENT WAS VOLUME OVERLOADED AND HAD TO BE INTUBATED AND WAS STARTED ON IV LASIX DRIP INTO THE INTENSIVE CARE UNIT. PATIENT IS SEVERELY HYPOXIC AND HAD DIFFUSE ANASARCA. PATIENT WAS ADMITTED TO THE INTENSIVE CARE UNIT FOR AGGRESSIVE MANAGEMENT. Hospital Course: PATIENT WAS DIURESED AGGRESSIVELY IN THE INTENSIVE CARE UNIT. WERE ABLE TO GET HIM DIURESED AND OFF THE MECHANICAL VENTILATOR. PATIENT WAS DIURESING MORE EFFECTIVELY AND WAS ABLE TO START WORKING WITH PHYSICAL THERAPY. WE WERE ABLE TO MOVE THE PATIENT TO THE GENERAL MEDICAL FLOOR. HOWEVER, HIS RENAL FUNCTION CONTINUED TO DECLINE. HE WAS STARTED ON HEMODIALYSIS. HIS HEPATITIS PANEL WAS NEGATIVE. ARRANGED FOR OUTPATIENT HEMODIALYSIS. AT THIS TIME PATIENT IS STABLE FOR DISCHARGE. OUTPATIENT FOLLOW-UP WITH NEPHROLOGY AND CARDIOLOGY IN 1-2 WEEKS. FOLLOW WITH PULMONARY NEEDED. Follow up with nephrology for hemodialysis/chair time Vital Signs/Physical Exam: Temp Pulse Resp BP Pulse Ox 97.8 F 86 20 128/78 94 05/16/20 08:00 05/16/20 08:24 05/16/20 08:00 05/16/20 08:24 05/16/20 08:00 General: Alert, In no apparent distress, Oriented x3 Laboratory Data at Discharge: WBC 15.7 K/uL (4.3-10.9) H 05/13/20 05:41 Hgb 12.0 g/dL (13.6-17.9) L 05/13/20 05:41 Hct 36.4 % (39.6-49.0) L 05/13/20 05:41 Plt Count 249 K/uL (152-406) 05/13/20 05:41 PT 13.0 SECONDS (9.5-12.5) H 05/02/20 05:02 INR 1.10 05/02/20 05:02 APTT 28.7 SECONDS (24.3-36.9) 05/02/20 05:02 Sodium 136 mmol/L (136-145) 05/13/20 05:41 Potassium 3.6 mmol/L (3.5-5.1) 05/13/20 05:41 BUN 116 mg/dL (7-18) H 05/13/20 05:41 Creatinine 4.22 mg/dL (0.55-1.3) H 05/13/20 05:41 Glucose 218 mg/dL (74-106) H 05/13/20 05:41 Uric Acid 10.4 mg/dL (3.5-7.2) H 05/03/20 04:02 Phosphorus 3.9 mg/dL (2.5-4.9) 05/07/20 05:11 Magnesium 2.6 mg/dL (1.8-2.4) H 05/13/20 05:41 Total Bilirubin 0.7 mg/dL (0.2-1.0) 05/05/20 05:30 AST 19 U/L (15-37) 05/05/20 05:30 ALT 60 U/L (12-78) 05/05/20 05:30 Alkaline Phosphatase 106 U/L (45-117) 05/05/20 05:30 Troponin I 1.69 ng/mL (0.0-0.045) H* 04/27/20 11:05 Lipase 126 U/L (73-393) 04/26/20 23:50 Home Medications: levETIRAcetam [Levetiracetam] 500 mg PO BID 09/11/16 Atorvastatin Calcium 40 mg PO DAILY 06/30/19 Isosorbide Mononitrate [Isosorbide Mononitrate ER] 30 mg PO DAILY 09/09/19 Ferrous Sulfate [Ferrous Sulfate*] 325 mg PO DAILY 03/22/20 allopurinoL [Zyloprim*] 100 mg PO DAILY #30 tab 03/25/20 Furosemide [Lasix] 80 mg PO Q12H #60 tablet 05/15/20 Insulin Detemir [Levemir] 15 units SQ BEDTIME #1 syr 05/15/20 Berto [Berto*] 1 pkt PO BID #60 powd.pack 05/15/20 Pantoprazole [Protonix Tab*] 40 mg PO BIDAC #60 tab 05/15/20 Psyllium [Metamucil (Hydrocil)*] 1 pkt PO DAILY #30 packet 05/15/20 Sildenafil Citrate [Revatio*] 20 mg PO DAILY #30 tablet 05/15/20 Simethicone [Mylicon*] 80 mg PO TID PRN #30 tab 05/15/20 Thiamine HCl [Vitamin B-1*] 100 mg PO DAILY #30 tablet 05/15/20 New Medications: Berto [Berto*] 1 pkt PO BID #60 powd.pack Furosemide [Lasix] 80 mg PO Q12H #60 tablet Insulin Detemir [Levemir] 15 units SQ BEDTIME #1 syr Psyllium [Metamucil (Hydrocil)*] 1 pkt PO DAILY #30 packet Simethicone [Mylicon*] 80 mg PO TID PRN #30 tab PRN Reason: Abdominal Cramps Pantoprazole [Protonix Tab*] 40 mg PO BIDAC #60 tab Sildenafil Citrate [Revatio*] 20 mg PO DAILY #30 tablet Thiamine HCl [Vitamin B-1*] 100 mg PO DAILY #30 tablet Patient Discharge Instructions: OK TO DC IV AND DC HOME. FOLLOW-UP WITH PRIMARY CARE PROVIDER IN 1-2 WEEKS. FOLLOW-UP WITH CARDIOLOGY IN 1-2 WEEKS. FOLLOW UP WITH NEPHROLOGY IN 1-2 WEEKS AND ALSO FOLLOW UP AT DIALYSIS CLINIC FOR HEMODIALYSIS. FOLLOW-UP WITH PULMONARY FOR PULMONARY HYPERTENSION. RETURN TO THE ER IF SYMPTOMS WORSEN. CALL DR. DUTTA AT [phone] IF ANY QUESTIONS REGARDING HOSPITAL STAY. PLEASE CALL THE FLOOR AT [phone] IF ANY MEDICATION OR NURSING QUESTIONS. Diet: Renal Activity: Fall precautions Followup: Alberto Milan MD [ACTIVE - CAN ADMIT] - Remington Mckeon MD [ACTIVE - CAN ADMIT] - Shreyas Corbin MD [ACTIVE - CAN ADMIT] - Time spent managing pt's care (in minutes): 35
[2020-05-26 10:26] VITALS: BP 160/83; TEMP 98.9
== END 2020-05-16 10:51 | disposition home health service (06) | DRG 291 ==
LOC: ER 23:52 → ERHOLD 04-27 01:32 → 2ND 05-02 19:37
PROVIDERS: ADMIT Internal Medicine; ATTEND Hospitalist
PROC: 5A1955Z Respiratory Ventilation, Greater than 96 Consecutive Hours (ICD-10-PCS; principal; 2020-04-27)
PROC: 0BH17EZ Insertion of Endotracheal Airway into Trachea, Via Natural or Artificial Opening (ICD-10-PCS; 2020-04-27)
PROC: 02HV33Z Insertion of Infusion Device into Superior Vena Cava, Percutaneous Approach (ICD-10-PCS; 2020-05-10)
PROC: 0JH63XZ Insertion of Tunneled Vascular Access Device into Chest Subcutaneous Tissue and Fascia, Percutaneous Approach (ICD-10-PCS; 2020-05-10)
PROC: 5A1D70Z Performance of Urinary Filtration, Intermittent, Less than 6 Hours Per Day (ICD-10-PCS; 2020-05-10)
DX: I13.2 Hypertensive heart and chronic kidney disease with heart failure and with stage 5 chronic kidney disease, or end stage renal disease (principal); J96.01 Acute respiratory failure with hypoxia; I50.23 Acute on chronic systolic (congestive) heart failure; J18.9 Pneumonia, unspecified organism; N18.6 End stage renal disease; J96.02 Acute respiratory failure with hypercapnia; L03.90 Cellulitis, unspecified; N17.9 Acute kidney failure, unspecified; E87.0 Hyperosmolality and hypernatremia; K92.2 Gastrointestinal hemorrhage, unspecified; J44.0 Chronic obstructive pulmonary disease with (acute) lower respiratory infection; N25.81 Secondary hyperparathyroidism of renal origin; G93.49 Other encephalopathy; Z79.4 Long term (current) use of insulin; Z79.01 Long term (current) use of anticoagulants; Z88.1 Allergy status to other antibiotic agents; Z79.899 Other long term (current) drug therapy; L89.329 Pressure ulcer of left buttock, unspecified stage; E11.22 Type 2 diabetes mellitus with diabetic chronic kidney disease; I25.10 Atherosclerotic heart disease of native coronary artery without angina pectoris; Z95.810 Presence of automatic (implantable) cardiac defibrillator; E11.40 Type 2 diabetes mellitus with diabetic neuropathy, unspecified; Z90.49 Acquired absence of other specified parts of digestive tract; Z95.1 Presence of aortocoronary bypass graft; E78.5 Hyperlipidemia, unspecified; I48.0 Paroxysmal atrial fibrillation; M10.9 Gout, unspecified; I27.21 Secondary pulmonary arterial hypertension; E87.6 Hypokalemia; K21.9 Gastro-esophageal reflux disease without esophagitis; R31.9 Hematuria, unspecified; E11.65 Type 2 diabetes mellitus with hyperglycemia; D63.1 Anemia in chronic kidney disease; K59.00 Constipation, unspecified; Z20.828 Contact with and (suspected) exposure to other viral communicable diseases
CPT/HCPCS: 31500; 36415; 51702; 71045; 71250; 76000; 76770; 80048; 80053; 80069; 80076; 81003; 81015; 82040; 82550; 82553; 82728; 82805; 82947; 83605; 83615; 83690; 83735; 83880; 84100; 84132; 84145; 84439; 84443; 84484; 84550; 85014; 85018; 85025; 85379; 85610; 85730; 86140; 86317; 86704; 86706; 87040; 87070; 87081; 87205; 87340; 87522; 87804; 90935; 93005; 93970; 94002; 94003; 96365; 96366; 96375; 97116; 97161; 97530; 99291; 99292; C1752; C9113; J0330; J0360; J0456; J0696; J1644; J1650; J1815; J1940; J2250; J2405; J2704; J2920; J2930; J3010; J3411; J3480; J7030; J7040; J7050; U0002; U0003

== ENCOUNTER 2021-04-10 15:39 | Emergency (ER) | payer OTHER ==
--- OUTSIDE RECORDS SUMMARY | 2021-04-10 15:43 | XMS REPORT | Continuity of Care Document ---
:1955 Author Organization [facility] t Address [address] [place] [place] [address] Care Team Providers Name Role Phone Rubi Perez MD Attending Clinician Payers Payer Name Policy Type Policy Number Effective Date Expiration Date S ource Problems This patient has no known problems. Allergies, Adverse Reactions, Alerts Allergy Allergy Status Severity Reaction(s) Onset Inactive Treating Comm ents Source Name Type Date Date Clinician joe [place] Active [place] [facility]- [facility] 0-22 [place] 00:00: [address] azithrodrigo DA [place] [facility] ycin 3-27 [facility] 00:00: [address] Medications This patient has no known medications. Procedures This patient has no known procedures. Encounters Start End Encounter Admission Attending Care Care Encounter Source Date/Time Date/Time Type Type Clinicians Facility Department ID 2020-10-10 2020-10-10 Emergency ANAYA Perez [id number] 05:46:00 06:35:00 Rubi Sales [id number] [place] [id number] [place] [id number] Results Test Description Test Time Test Comments Results Result Comments Source GLUCOSE BEDSIDE TESTING 2020-09-23 15:07:00 Test Item Value Reference Range Interpretation Comme nts GLUCOSE BEDSIDE TESTING (test code = GLUBED) 140 MG/DL 60-99 H Doctor Notified~ GLUCOSE BEDSIDE [id number] 13:43:00 Test Item Value Reference Range Interpretation Comments GLUCOSE BEDSIDE TESTING (test code 269 MG/DL 60-99 H = GLUBED) GLUCOSE BEDSIDE [id number] 13:21:00 Test Item Value Reference Range Interpretation Comments GLUCOSE BEDSIDE TESTING (test code 291 MG/DL 60-99 H = GLUBED) GLUCOSE BEDSIDE [id number] 12:15:00 Test Item Value Reference Range Interpretation Comments GLUCOSE BEDSIDE TESTING (test code 340 MG/DL 60-99 HH = GLUBED) GLUCOSE BEDSIDE [id number] 11:23:00 Test Item Value Reference Range Interpretation Comments GLUCOSE BEDSIDE TESTING (test code 394 MG/DL 60-99 HH = GLUBED) GLUCOSE BEDSIDE [id number] 10:43:00 Test Item Value Reference Range Interpretation Comments GLUCOSE BEDSIDE TESTING 407 MG/DL 60-99 HH Doct or Notified~ (test code = GLUBED) BASIC METABOLIC [id number] 10:36:00 Test Item Value Reference Range Interpretation Comments SODIUM (test code = 137 MMOL/L 137-145 N NA) POTASSIUM (test code = 5.0 MMOL/L 3.5-5.1 N K) CHLORIDE (test code = 102 MMOL/L 98-107 N CL) CARBON DIOXIDE (test 24 MMOL/L 22-30 N code = CO2) ANION GAP (test code = 16 MMOL/L 14-24 N GAP) GLUCOSE (test code = 464 MG/DL 74-106 HH CALLED TO ADELE.W& GLU) READBACK ON 09/12 AT 1036 BY Rossana Zuñiga BLOOD UREA NITROGEN 85 MG/DL 9-20 H (test code = BUN) GLOMERULAR FILTRATION 18 Report ing units: RATE (test code = GFR) ml/mi n/1.73 m2 (Modified MDRD Formula)Referen ce Range: > or = 6 0 ml/min/1.73 m2 CREATININE (test code 3.40 MG/DL 0.66-1.25 H = CREAT) CALCIUM (test code = 9.2 MG/DL 8.4-10.2 N CA) [id number] 10:36:00 Test Item Value Reference Range Interpretation Comments MAGNESIUM (test code = MAG) 2.3 MG/DL 1.6-2.3 N BASIC METABOLIC [id number] 10:30:00 Test Item Value Reference Range Interpretation Comments SODIUM (test code = NA) 137 MMOL/L 137-145 N POTASSIUM (test code = K) 5.0 MMOL/L 3.5-5.1 N CHLORIDE (test code = CL) 102 MMOL/L 98-107 N CARBON DIOXIDE (test code = CO2) MMOL/L 22-30 GLUCOSE (test code = GLU) MG/DL 74-106 BLOOD UREA NITROGEN (test code = MG/DL 9-20 BUN) GLOMERULAR FILTRATION RATE (test code = GFR) CREATININE (test code = CREAT) MG/DL 0.66-1.25 CALCIUM (test code = CA) MG/DL 8.7-9.7 [id number] 10:30:00 Test Item Value Reference Range Interpretation Comments MAGNESIUM (test code = MAG) MG/DL 1.6-2.3 BASIC METABOLIC [id number] 10:29:00 Test Item Value Reference Range Interpretation Comments SODIUM (test code = NA) MMOL/L 137-145 POTASSIUM (test code = K) MMOL/L 3.5-5.1 CHLORIDE (test code = CL) 102 MMOL/L 98-107 N CARBON DIOXIDE (test code = CO2) MMOL/L 22-30 GLUCOSE (test code = GLU) MG/DL 74-106 BLOOD UREA NITROGEN (test code = MG/DL 9-20 BUN) GLOMERULAR FILTRATION RATE (test code = GFR) CREATININE (test code = CREAT) MG/DL 0.66-1.25 CALCIUM (test code = CA) MG/DL 8.7-9.7 [id number] 10:29:00 Test Item Value Reference Range Interpretation Comments MAGNESIUM (test code = MAG) MG/DL 1.6-2.3 PROTHROMBIN [id number] 10:25:00 Test Item Value Reference Range Interpretation Comments PROTHROMBIN TIME 10.8 SECONDS 9.4-12.5 N PATIENT (test code = PTP) INTERNATIONAL NORMAL 1.0 The INR is to be RATIO (test code = used only for INR) monitoring oral anticoagulantth erap y. INDICATION I NR VALUE ---- ---- ---- -------1. Prophylaxis, de ep venous thrombos is, including hig h risk surgery. 2.0 - 3.0 2. Prophylaxis, de ep venous thrombos is, hip surgery, treatment for d eep venous thrombosis or pulmonary prevention of systemic emboli sm in patients wit h valvular heart disease, atrial fibrillation, tissue heart va lve, or acute myocar dial infarction. 2.0 - 3 .0 3. Mechanical prosthesis hear t valves, recurrent syste lars embolism. 3.0 - 4.5 PTT [id number] 10:25:00 Test Item Value Reference Range Interpretation Comments PTT ACTIVATED (test code = APTT) 32.6 SECONDS 25.1-36.5 N CBC W/AUTO [id number] 10:13:00 Test Item Value Reference Range Interpretation Comments WHITE BLOOD CELL (test code = 9.2 K/MM3 3.8-9.8 N WBC) RED BLOOD CELL (test code = 4.89 M/MM3 3.95-5.67 N RBC) HEMOGLOBIN (test code = HGB) 14.7 G/DL 12.4-16.7 N HEMATOCRIT (test code = HCT) 45.8 % 35.9-49.5 N MEAN CELL VOLUME (test code = 94 fL 81.7-96.1 N MCV) MEAN CELL HGB (test code = MCH) 30.1 pg 27.6-33.2 N MEAN CELL HGB CONCETRATION 32.1 % 32.9-35.5 L (test code = MCHC) RED CELL DISTRIBUTION WIDTH 14.5 % 12.1-15.2 N (test code = RDW) PLATELET COUNT (test code = 179 K/MM3 129-368 N PLT) MEAN PLATELET VOLUME (test code 8.8 fl 7.4-10.4 N = MPV) NEUTROPHIL % (test code = NT%) 63.5 % 43-75 N IMMATURE GRANULOCYTE % (test 1.0 % 0.0-2.0 N code = IG%) LYMPHOCYTE % (test code = LY%) 24.7 % 14-44 N MONOCYTE % (test code = MO%) 4.7 % 4-13 N EOSINOPHIL % (test code = EO%) 5.4 % 0-6 N BASOPHIL % (test code = BA%) 0.7 % 0-2 N NUCLEATED RBC % (test code = 0.0 % 0-1.0 N NRBC%) NEUTROPHIL # (test code = NT#) 5.86 K/mm3 2.0-7.6 N IMMATURE GRANULOCYTE # (test 0.09 x10 3/uL 0-0.03 H code = IG#) LYMPHOCYTE # (test code = LY#) 2.28 K/mm3 1.0-3.8 N MONOCYTE # (test code = MO#) 0.43 K/mm3 0.1-0.8 N EOSINOPHIL # (test code = EO#) 0.50 K/mm3 0.0-0.2 H BASOPHIL # (test code = BA#) 0.06 K/mm3 0.0-0.2 N NUCLEATED RBC # (test code = 0.00 K/mm3 0.0-0.1 N NRBC#) COVID 19 Asymptomatic IH [id number] 09:19:00 Test Item Value Reference Range Interpretation Comments COVID 19 NEGATIVE Negative "Negative resul ts from Asymptomatic IH AG patients with symptom (test code = onset beyondfiv e days, COVNONPUIAG) should be ingrid jose juan as presumptive, andconfirmation with a molecular assay , if necessary forpa tient management may be performed. Nega tive results do notr ule out COVID-19 and sh ould not be used as the sole basisfor treatm ent or patient managem ent decisions, includinginfect ion control decisio ns. Negative result s should beconsidered in the context of a pa tients recent exposure s,history, and the presenc e of clinical signs and symptomsconsist ent with COVID-19.This t est detects both vi able andnon-viable S ARS-CoV and SARS CoV-2. Test performance dep endson the amount of virus (antigen) in the sample." [id number] 13:30:00 Test Item Value Reference Range Interpretation Comments GLUBED (test code = 179 mg/dL 74-106 H Performe d by certified GLUBED) icer machine operator at [facility] [id number] 06:14:00 Test Item Value Reference Range Interpretation Comments GLUBED (test code = 139 mg/dL 74-106 H Performe d by certified GLUBED) icer machine operator at [facility] [id number] 04:42:00 Test Item Value Reference Range Interpretation Comments GLUBED (test code = 166 mg/dL 74-106 H Performe d by certified GLUBED) icer machine operator at [facility] [id number] 21:05:00 Test Item Value Reference Range Interpretation Comments GLUBED (test code = 311 mg/dL 74-106 H Performe d by certified GLUBED) icer machine operator at [facility] [id number] 17:31:00 Test Item Value Reference Range Interpretation Comments GLUBED (test code = 200 mg/dL 74-106 H Performe d by certified GLUBED) icer machine operator at [facility] [id number] 12:34:00 Test Item Value Reference Range Interpretation Comments GLUBED (test code = 225 mg/dL 74-106 H Performe d by certified GLUBED) icer machine operator at [facility] BASIC METABOLIC [id number] 07:17:00 Test Item Value Reference Range Interpretation [...] code = 8.8 mg/dL 8.5-10.1 N CA) [id number] 05:08:00 Test Item Value Reference Range Interpretation Comments GLUBED (test code = 146 mg/dL 74-106 H Performe d by certified GLUBED) icer machine operator at [facility] BASIC METABOLIC [id number] 03:11:00 Test Item Value Reference Range Interpretation [...] GFR) formula.Chronic kidney disease is defined as [facility] kidney damageor GFR <60 mL/min/1.73 m2 for >3 months. CREATININE (test code 2.80 mg/dL 0.7-1.3 H = CREAT) BUN/CREATININE RATIO 18.9 10-20 N (test code = BUN/CREA) CALCIUM (test code = 8.7 mg/dL 8.5-10.1 N CA) [id number] 03:11:00 Test Item Value Reference Range Interpretation Comments MAGNESIUM (test code = MAG) 2.0 mg/dL 1.8-2.4 N CBC W/O [id number] 03:02:00 Test Item Value Reference Range Interpretation [...] code 8.8 fL 6.7-11.0 N = MPV) [id number] 21:06:00 Test Item Value Reference Range Interpretation Comments GLUBED (test code = 283 mg/dL 74-106 H Performe d by certified GLUBED) icer machine operator at [facility] [id number] 18:12:00 Test Item Value Reference Range Interpretation Comments GLUBED (test code = 207 mg/dL 74-106 H Performe d by certified GLUBED) icer machine operator at [facility] [id number] 12:02:00 Test Item Value Reference Range Interpretation Comments GLUBED (test code = 220 mg/dL 74-106 H Performe d by certified GLUBED) icer machine operator at [facility] [id number] 06:47:00 Test Item Value Reference Range Interpretation Comments GLUBED (test code 142 mg/dL 74-106 H Performed by certified = GLUBED) [facility]~ [id number] 06:29:00 Test Item Value Reference Range Interpretation Comments GLUBED (test code 212 mg/dL 74-106 H Performed by certified = GLUBED) [facility] BASIC METABOLIC [id number] 02:36:00 Test Item Value Reference Range Interpretation [...] GFR) formula.Chronic kidney disease is defined as [facility] kidney damageor GFR <60 mL/min/1.73 m2 for >3 months. CREATININE (test code 3.00 mg/dL 0.7-1.3 H = CREAT) BUN/CREATININE RATIO 20.3 10-20 H (test code = BUN/CREA) CALCIUM (test code = 8.7 mg/dL 8.5-10.1 N CA) [id number] 02:36:00 Test Item Value Reference Range Interpretation Comments MAGNESIUM (test code = MAG) 2.0 mg/dL 1.8-2.4 N BASIC METABOLIC [id number] 02:21:00 Test Item Value Reference Range Interpretation [...] CALCIUM (test code = CA) mg/dL 8.5-10.1 [id number] 02:21:00 Test Item Value Reference Range Interpretation Comments MAGNESIUM (test code = MAG) mg/dL 1.8-2.4 CBC W/O [id number] 01:44:00 Test Item Value Reference Range Interpretation [...] fL 6.7-11.0 N (test code = MPV) [id number] 17:37:00 Test Item Value Reference Range Interpretation Comments GLUBED (test code = 274 mg/dL 74-106 H Performe d by certified GLUBED) icer machine operator at [facility] [id number] 12:37:00 Test Item Value Reference Range Interpretation Comments GLUBED (test code = 187 mg/dL 74-106 H Performe d by certified GLUBED) icer machine operator at [facility] [id number] 11:42:00 Test Item Value Reference Range Interpretation Comments GLUBED (test code = 188 mg/dL 74-106 H Performe d by certified GLUBED) icer machine operator at [facility] - XR CHEST 1 [id number] 09:18:00 FAX: Reji Hernandez MD [place]: B St: [facility] FAX: Asmita David NP [phone] Name: JAROD YU [facility] : 1955 Age/S: 63/M [address] Unit #: [id number] Loc: V.2058 [place] [address] Phys: Asmita David NP Acct: V [id number] Dis Date: Status: ADM IN PHONE #: [phone] Exam Date: 06/16/2019 0858 FAX #: [phone] Reason: CHF EXAMS: CPT CODE: [id number] XR CHEST 1 V 80755 HISTORY: CHF. COMPARISON: Previous day. Left ICD is unchanged. Mild congestion. Smallbasilar effusions. Dependent changes. Small basilar effusions. Dependent changes. Cardiomegaly. IMPRESSION: Mild congestion is unchanged. at 0918 Reported and signed by: Anjum Helton M.D. CC: Reji Hernandez MD; Asmita David NP Technologist: ALETA MUHAMMAD JR Trnscrd Date/Time/By: 06/16/2019 (917) :By: [email or web address] Orig Print D/T: S: 06/16/2019 (920) PAGE 1 Signed ReportBASIC METABOLIC [id number] 08:56:00 Test Item Value Reference Range Interpretation [...] GFR) formula.Chronic kidney disease is defined as [facility] kidney damageor GFR <60 mL/min/1.73 m2 for >3 months. CREATININE (test code 3.00 mg/dL 0.7-1.3 H = CREAT) BUN/CREATININE RATIO 19.3 10-20 N (test code = BUN/CREA) CALCIUM (test code = 8.5 mg/dL 8.5-10.1 N CA) [id number] 08:56:00 Test Item Value Reference Range Interpretation Comments MAGNESIUM (test code = MAG) 2.1 mg/dL 1.8-2.4 N CBC W/AUTO [id number] 08:44:00 Test Item Value Reference Range Interpretation [...] code = 0.00 K/mm3 0.0-0.1 N NRBC#) [id number] 08:27:00 Test Item Value Reference Range Interpretation Comments GLYCOSYLATED HEMOGLOBIN (HA1C) 9.7 % HbA1 4.8-6.0 H (test code = GLYHGB) ESTIMATED AVERAGE GLUCOSE (test 232 MG/DL code = EAG) [id number] 06:14:00 Test Item Value Reference Range Interpretation Comments GLUBED (test code = 134 mg/dL 74-106 H Performe d by certified GLUBED) icer machine operator at [facility] [id number] 04:22:00 Test Item Value Reference Range Interpretation Comments GLUBED (test code = 146 mg/dL 74-106 H Performe d by certified GLUBED) icer machine operator at [facility] [id number] 21:25:00 Test Item Value Reference Range Interpretation Comments GLUBED (test code = 179 mg/dL 74-106 H Performe d by certified GLUBED) icer machine operator at [facility] UR MICROALBUMIN/CREAT [id number] 17:08:00 Test Item Value Reference Range Interpretation [...] 31.0 - 300.0 Clinical albuminuria: >300.0Performed At: [facility] [address] [place], [place] [id number] Kyle L MD [phone] [id number] 16:47:00 Test Item Value Reference Range Interpretation Comments GLUBED (test code = 173 mg/dL 74-106 H Performe d by certified GLUBED) icer machine operator at [facility] [id number] 10:07:00 Test Item Value Reference Range Interpretation Comments GLUBED (test code = 151 mg/dL 74-106 H Performe d by certified GLUBED) icer machine operator at [facility] [id number] 07:12:00 Test Item Value Reference Range Interpretation Comments TROPONIN-I (test code = TROPI) 2.350 ng/mL 0-0.045 HH 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 IMPRESSION: Slightly worse bilateral airspace opacification and small pleural effusions. Cardiomegaly. AICD/biventricular pacer. LOCATION: at 0625 Reported and signed by: Eliz Ocampo D.O. CC: Piter Collins; Reji Hernandez MD Technologist: ALETA MUHAMMAD JR; Mary Bryan Trnscrd Date/Time/By: 06/15/2019 (0625) : By: [email or web address] Orig Print D/T: S: 06/15/2019 (0608) PAGE 1 Signed ReportPROCALCITONIN (PCT)2019-06-15 06:18:00 Test [...] ount the patients h istory. COMPREHENSIVE METABOLIC [id number] 06:07:00 Test Item Value Reference Range Interpretation [...] MDRD formula.Chronic kidney disease is defined as [facility] kidney damageor GFR <60 [...] range due ALKP) to change in reagent. [id number] 06:07:00 Test Item Value Reference Range Interpretation Comments MAGNESIUM (test code = MAG) 2.2 mg/dL 1.8-2.4 N [id number] 05:29:00 Test Item Value Reference Range Interpretation Comments GLUBED (test code = 180 mg/dL 74-106 H Performe d by certified GLUBED) icer machine operator at [facility] CBC W/AUTO [id number] 05:09:00 Test Item Value Reference Range Interpretation [...] code = 0.00 K/mm3 0.0-0.1 N NRBC#) [id number] 21:16:00 Test Item Value Reference Range Interpretation Comments GLUBED (test code = 186 mg/dL 74-106 H Performe d by certified GLUBED) icer machine operator at [facility] [id number] 16:21:00 Test Item Value Reference Range Interpretation Comments GLUBED (test code = 229 mg/dL 74-106 H Performe d by certified GLUBED) icer machine operator at [facility] UR SMEAR EOSINOPHIL [id number] 16:03:00 Test Item Value Reference Range Interpretation Comments UR SMEAR EOSINOPHIL COUNT NONE SEEN per HPF NONE SEEN (test code = EOSCTU) UR NA,[id number] 16:03:00 Test Item Value Reference Range Interpretation Comments UR NA,RANDOM (test code = NOEMÍ) 113 mmol/L 20-110 H UR CHLORIDE [id number] 16:03:00 Test Item Value Reference Range Interpretation Comments UR CHLORIDE RANDOM (test code = 118 mEq/L CLU) UR PROTEIN/CREATININE [id number] 16:03:00 Test Item Value Reference Range Interpretation [...] (test code = P/CRATIO) UR SMEAR EOSINOPHIL [id number] 15:08:00 Test Item Value Reference Range Interpretation Comments UR SMEAR EOSINOPHIL COUNT (test code per HPF NONE SEEN = EOSCTU) UR NA,[id number] 15:08:00 Test Item Value Reference Range Interpretation Comments UR NA,RANDOM (test code = NOEMÍ) 113 mmol/L 20-110 H UR CHLORIDE [id number] 15:08:00 Test Item Value Reference Range Interpretation Comments UR CHLORIDE RANDOM (test code = 118 mEq/L CLU) UR PROTEIN/CREATININE [id number] 15:08:00 Test Item Value Reference Range Interpretation [...] (test code = P/CRATIO) UR SMEAR EOSINOPHIL [id number] 14:58:00 Test Item Value Reference Range Interpretation Comments UR SMEAR EOSINOPHIL COUNT (test code per HPF NONE SEEN = EOSCTU) UR NA,[id number] 14:58:00 Test Item Value Reference Range Interpretation Comments UR NA,RANDOM (test code = NOEMÍ) 113 mmol/L 20-110 H UR CHLORIDE [id number] 14:58:00 Test Item Value Reference Range Interpretation Comments UR CHLORIDE RANDOM (test code = 118 mEq/L CLU) UR PROTEIN/CREATININE [id number] 14:58:00 Test Item Value Reference Range Interpretation Comments UR PROTEIN RANDOM (test code = PROTU) mg/dL 0.0-11.9 UR CREATININE RANDOM (test code = mg/dL 30-125 CREATU) PROTEIN/CREATININE RATIO (test code = RATIO 0.0-0.20 P/CRATIO) [id number] 13:09:00 Test Item Value Reference Range Interpretation Comments GLUBED (test code = 214 mg/dL 74-106 H Performe d by certified GLUBED) icer machine operator at [facility] URINALYSIS [id number] 11:40:00 Test Item Value Reference Range Interpretation [...] 0-5 code = HYALU) Urine Source? Clean [id number] 11:38:00 Test Item Value Reference Range Interpretation Comments GLUBED (test code = 203 mg/dL 74-106 H Performe d by certified GLUBED) icer machine operator at [facility] URINALYSIS [id number] 11:35:00 Test Item Value Reference Range Interpretation [...] per HPF NONE BACU) Urine Source? Clean [id number] 07:40:00 Test Item Value Reference Range Interpretation Comments TROPONIN-I (test code = TROPI) 1.380 ng/mL 0-0.045 HH SPECIMEN COMMENTS: 0200 LAB- XR CHEST 1 [id number] 07:30:00 FAX: Piter Collins [phone] [place]: St: ADM FAX: Reji Hernandez IMD Name: JAROD YU [facility] : 1955 Age/S: 63/M [address] [facility] Unit #: [id number] Loc: .S06 [place] [address] Phys: Piter Collins Acct: V [id number] Dis Date: Status: ADM IN PHONE #: [phone] Exam Date: 06/14/2019 0649 FAX #: [phone] Reason: updatedpulm view. EXAMS: CPT CODE: [id number] XR CHEST 1 V 87336 CLINICAL HISTORY: Respiratory failure, CHF TECHNIQUE: AP chest x-ray COMPARISON: Previous day. IMPRESSION: Improved patchy bilateral airspace opacification or pulmonary congestion. Small bilateral pleural effusions. Cardiomegaly. AICD/biv entricular pacer. LOCATION: at 0730 Reported and signed by: Eliz Ocampo D.O. CC: Piter Collins; Reji Hernandez MD Technologist: Chanell Lang) Trnscrd Date/Time/By: 06/14/2019 (729) : By: [email or web address] Orig Print D/T: S: 06/14/2019 (1848) PAGE 1 Signed ReportBASIC METABOLIC [id number] 03:27:00 Test Item Value Reference Range Interpretation [...] CALCIUM (test code = CA) mg/dL 8.5-10.1 [id number] 03:27:00 Test Item Value Reference Range Interpretation Comments MAGNESIUM (test code = MAG) mg/dL 1.8-2.4 BASIC METABOLIC [id number] 03:27:00 Test Item Value Reference Range Interpretation [...] GFR) formula.Chronic kidney disease is defined as [facility] kidney damageor GFR <60 mL/min/1.73 m2 for >3 months. 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 Location: [facility] at 1828 Reported and signed by: Yoandy Calero MD PAGE 1 Signed Report (CONTINUED) Name: JAROD YU [facility] : 1955 Age/S: 63 / M [address] [facility] Unit #: [id number] Loc: [place] [address] Phys: Reji Hernandez MD Acct: [id number] Dis Date: Status: ADM IN PHONE #: [phone] Exam Date: 06/13/2019 1703 FAX #: [phone] Reason: ckd EXAMS: CPT CODE: [id number] [facility] [id number] <Continued> CC: Krystina Kowalski MD; Reji Hernandez MD T echnologist: Ladi Ruiz RDMS Trntxb Date/Time: 06/13/2019 (1827) [email or web address] Orig Print D/T: S: 06/13/2019 (183) Probe: PAGE 2 Signed Report PROTHROMBIN [id number] 14:57:00 Test Item Value Reference Range Interpretation [...] (2.5-3.5) IS PATIENT ON ANTICOAGULANTS? NTHROMBOPLASTIN TIME [id number] 14:57:00 Test Item Value Reference Range Interpretation Comments THROMBOPLASTIN TIME PARTIAL 47.3 seconds 25.0-36.5 H (test code = PTT) IS PATIENT ON ANTICOAGULANTS? [id number] 14:57:00 Test Item Value Reference Range Interpretation Comments D-DIMER (test 07751.00 0-500 HH RESULT VERIFIE D BY REPEAT [...] - IS PATIENT ON ANTICOAGULANTS? NB-TYPE NATRIURETIC [id number] 14:38:00 Test Item Value Reference Range Interpretation Comments B-TYPE NATRIURETIC PEPTIDE 1317.60 pgram/mL 0-100 H (test code = BNP) BASIC METABOLIC [id number] 14:36:00 Test Item Value Reference Range Interpretation [...] GFR) formula.Chronic kidney disease is defined as [facility] kidney damageor GFR <60 mL/min/1.73 m2 for >3 months. CREATININE (test code 3.20 mg/dL 0.7-1.3 H = CREAT) BUN/CREATININE RATIO 16.2 10-20 N (test code = BUN/CREA) CALCIUM (test code = 8.6 mg/dL 8.5-10.1 N CA) HEPATIC FUNCTION [id number] 14:36:00 Test Item Value Reference Range Interpretation [...] code = 105 IUnit/L 26-208 N CK) [id number] 14:36:00 Test Item Value Reference Range Interpretation Comments LIPASE (test code = LIP) 241 U/L 73.0-393.0 N [id number] 14:36:00 Test Item Value Reference Range Interpretation Comments MAGNESIUM (test code = MAG) 2.3 mg/dL 1.8-2.4 N [id number] 14:36:00 Test Item Value Reference Range Interpretation Comments TROPONIN-I (test 1.890 ng/mL 0-0.045 HH Results ilda led to code = TROPI) [id number] by Azeem NOE 06/13/19 [id number] itical results verifie d and read back by Angie rse? Y LACTIC [id number] 14:27:00 Test Item Value Reference Range Interpretation Comments LACTIC ACID (test code = LACT) 0.9 mmol/L 0.4-1.9 N BASIC METABOLIC [id number] 14:16:00 Test Item Value Reference Range Interpretation [...] code = CA) mg/dL 8.5-10.1 HEPATIC FUNCTION [id number] 14:16:00 Test Item Value Reference Range Interpretation [...] (CK) (test code = IUnit/L 26-208 CK) [id number] 14:16:00 Test Item Value Reference Range Interpretation Comments LIPASE (test code = LIP) U/L 73.0-393.0 [id number] 14:16:00 Test Item Value Reference Range Interpretation Comments MAGNESIUM (test code = MAG) mg/dL 1.8-2.4 [id number] 14:16:00 Test Item Value Reference Range Interpretation Comments TROPONIN-I (test code = TROPI) ng/mL 0-0.045 CBC W/AUTO [id number] 14:10:00 Test Item Value Reference Range Interpretation [...] = 0.03 K/mm3 0.0-0.1 N NRBC#) - [facility] 1 [id number] 14:01:00 FAX: Krystina Banda [phone] [place]: B St: PRE Name: JAROD YU [facility] : 1955 Age/S: 63/M [address] [facility] [id number] Loc: ADIA Chiu [address] Phys: Krystina Kowalski MD Acct: [id number] Dis Date: Status: PRE ER PHONE #: [phone] Exam Date: 06/13/2019 1350 FAX #: [phone] Reason: SHORTNESS OF BREATH EXAMS: CPT CODE: [id number] XR CHEST 1 V 39142 HISTORY: Shortness of breath. COMPARISON: None available. Left ICD with the leads in the right atrium and right ventricle patchy right infiltrate. Left basal infiltrate as well. Dependent changes. No effusion. Cardiomegaly. IMPRESSION: Patchy bilateral infiltrates, greater on the right. at 1401 Reported and signed by: Anjum Helton M.D. CC: Krystina Kowalski MD Technologist: RT LATONYA(R) Trnscrd Date/Time/By: 06/13/2019 (4921) : By: [email or web address] Orig Print D/T: S: 06/13/2019 (3937) PAGE 1 Signed ReportARTERIAL BLOOD [id number] 13:59:00 Test Item Value Reference Range Interpretation [...]
[2021-04-10 16:37] LABS: Absolute Lymphocytes (CBC) 2.9 K/uL (0.7-4.9); Basophils % 0.7 % (0-1.3); Hematocrit 48.6 % (39.6-49.0); Lymphocytes % 23.4 % (15.3-44.8); RBC Red Blood Cell Count 5.21 M/uL (4.33-5.43)
[2021-04-10 16:42] LABS: Protime INR 1.03
--- NOTE | 2021-04-10 17:02 | RAD REPORT ---
EXAM DESCRIPTION: RAD - Chest Single View - 04/10/2021 4:54 pm CLINICAL HISTORY: CHEST PAIN Chest pain. COMPARISON: Chest Single View dated 05/12/2020; Chest Single View dated 05/10/2020; Chest Single View dated 05/08/2020; Chest Single View dated 05/07/2020 FINDINGS: Portable technique limits examination quality. Moderately severe bilateral pulmonary opacities may represent pulmonary edema or infection. The heart is moderately enlarged. Multi lead pacer/defibrillator device is present. Right-sided venous cathete r has tip in the SVC.
[2021-04-10] MEDS ORDERED: carvediloL 6.25 MG TAB ONE (17:15)
[2021-04-10 17:22] LABS: Albumin 3.7 g/dL (3.4-5.0); Bilirubin Direct 0.1 mg/dL (0-0.2); Bilirubin Total 0.5 mg/dL (0.2-1.0); Magnesium 2.5 mg/dL (1.8-2.4); Potassium 4.3 mmol/L (3.5-5.1); Protein, Total 8.4 g/dL (6.4-8.2)
[2021-04-10 17:23] LABS: Troponin (Emerg Dept Use Only) 3.09 ng/mL (0.0-0.045)
[2021-04-10] MEDS ORDERED: FUROSEMIDE 100 MG/10 ML VIAL IV ONE (18:34)
--- NOTE | 2021-04-10 18:51 | ER ---
Nurse's Notes [facility] Name: Jarod Kraft Age: 65 yrs Sex: Male : 1955 Arrival Date: 04/10/2021 Time: 15:40 Bed 17 Private MD: Diagnosis: Tachycardia, unspecified;Presence of cardiac pacemaker-malfunction Presentation: 04/10 16:04 Chief complaint: Patient states: SOB and chest pain starting at 1400. CP has since kg resolved, pt is very diaphoretic. Coronavirus screen: Client denies travel out of the [place] in the last 14 days. At this time, unable to obtain information related to travel outside the [place] At this time, the client does not indicate any symptoms associated with coronavirus-19. Ebola Screen: Patient negative for fever greater than or equal to 101.5 degrees Fahrenheit, and additional compatible Ebola Virus Disease symptoms Patient denies exposure to infectious person. Patient denies travel to an Ebola-affected area in the 21 days before illness onset. No symptoms or risks identified at this time. Initial Sepsis Screen: Does the patient meet any 2 criteria? No. Patient's initial sepsis screen is negative. Does the patient have a suspected source of infection? No. Patient's initial sepsis screen is negative. Risk Assessment: Do you want to hurt yourself or someone else? Patient reports no desire to harm self or others. Onset of symptoms was April 10, 2021 at 14:00. 16:04 Method Of Arrival: Ambulatory kg 16:04 Acuity: ASAF 3 kg Triage Assessment: 16:13 General: Appears in no apparent distress. Behavior is calm, cooperative, appropriate kg for age, quiet. Pain: Denies pain. Historical: - Allergies: 16:10 Erythromycin; kg 16:10 Cipro; kg - Home Meds: 16:10 Eliquis 2.5 mg oral tab 1 tab 2 times per day [Active]; amlodipine 10 mg tab 1 tab once kg daily [Active]; atorvastatin 40 mg Oral tab 1 tab once daily [Active]; carvedilol 25 mg Oral tab 1 tab 2 times per day [Active]; clonidine HCl 0.2 mg Oral tab 1 tab 3 times per day [Active]; Coreg 3.125 mg Oral tab 1 tab every 12 hours [Active]; furosemide 40 mg Oral tab 1 tab once daily [Active]; Lantus 20 units Sub-Q daily [Active]; isosorbide mononitrate 30 mg Oral Tb24 1 tab once daily [Active]; Levemir 100 unit/mL subcutaneous soln [Active]; levetiracetam 500 mg Oral tab 1 tab 2 times per day [Active]; - PMHx: 16:10 CHF; Diabetes - IDDM; High Cholesterol; Hypertension; Irregular heart rate; Pacemaker; kg 16:13 ESRD- M/W/F; kg - PSHx: 16:13 Cholecystectomy; Pacemaker; Dialysis Catheter; kg - Immunization history:: Client reports receiving the 2nd dose of the Covid vaccine, Date received: November 2020 Client reports receiving the 1st dose of the Covid vaccine, October 2020. - Social history:: Smoking status: Patient denies any tobacco usage or history of. Screenin:13 Abuse screen: Denies threats or abuse. Denies injuries from another. Nutritional bp screening: No deficits noted. Tuberculosis screening: No symptoms or risk factors identified. Fall Risk None identified. Assessment: 16:15 General: SEE TRIAGE NOTE. Pain: Complains of pain in chest Pain does not radiate. Pain bp began 2 hours ago. 16:55 Reassessment: No changes from previously documented assessment. PE[employer]L [employer] INTERROGATION bp DONE AND SENT, REPORT PENDING. 16:58 Cardiovascular: Rhythm is with capture. bp 18:21 Reassessment: PT PLACED ON BIPAP. bp 19:37 Reassessment: assumed care of patient at this time. patient currently on BIPAP. patient ms4 denies cp or shortness of breath. patient awaiting transfer at this time. patient on teletypesetter monitor. patient continues to be diaphoretic. denies any needs at this time. Neuro: No deficits noted. Respiratory: No deficits noted. GI: No deficits noted. : No deficits noted. 21:00 Reassessment: report given to [facility]. ms4 21:16 Reassessment: transfer paperwork signed. ms4 21:34 Reassessment: report given to Mariano saba [facility]. patient to be transferred to [address] ER for cardiology consult. Vital Signs: 15:57 Pulse Ox 86% on R/A; kg 16:04 BP 141 / 60; Pulse 67; Resp 21; Temp 98.5(O); Pulse Ox 95% on 2 lpm NC; Weight 102.51 kg kg; Height 5 ft. 6 in. (167.64 cm); Pain 0/10; 16:21 BP 139 / 102; Pulse 127; Resp 24; Pulse Ox 92% ; bp 16:56 BP 152 / 96; Pulse 128; Resp 19; Pulse Ox 95% ; bp 18:00 BP 160 / 109; Pulse 127; Resp 28; Pulse Ox 97% on 3 lpm NC; bp 19:00 BP 123 / 93; Pulse 113; Resp 22; Pulse Ox 93% ; Pain 0/10; ms4 20:50 BP 130 / 71; Pulse 121; Resp 24; Pulse Ox 93% ; Pain 0/10; ms4 21:29 BP 136 / 92; Pulse 126; Resp 22; Temp 98; Pulse Ox 96% ; Pain 0/10; ms4 16:04 Body Mass Index 36.48 (102.51 kg, 167.64 cm) kg ED Course: 15:40 Patient arrived in ED. ds1 16:04 Akira Riggs PA is PHCP. cp 16:05 Oswald Alex MD is Attending Physician. cp 16:09 Herbert Alarcon, RN is Primary Nurse. bp 16:10 Triage completed. kg 16:12 Initial lab(s) drawn, by il, sent to lab. Inserted saline lock: 20 gauge in right kj1 forearm, using aseptic technique. Blood collected. 16:50 EKG done, by ED staff, reviewed by Oswald Alex MD. mh5 16:51 Patient has correct armband on for positive identification. Placed in gown. Bed in low mh5 position. Call light in reach. Side rails up X2. Pillow given. nuclear monitoring technician on. Pulse ox on. NIBP on. 16:52 Basic Metabolic Panel Sent. mh5 16:52 CBC with Diff Sent. mh5 16:52 XRAY Chest (1 view) Sent. 5 16:52 Basic Metabolic Panel Sent. 5 16:52 LFT's Sent. mh5 16:52 Magnesium Sent. mh5 16:53 NT PRO-BNP Sent. 5 16:53 PT-INR Sent. 5 16:53 Troponin (emerg Dept Use Only) Sent. 5 16:54 XRAY Chest (1 view) In Process Unspecified. EDMS 18:10 contacted the answering service for Dr. Gaudencio Frias- tuck pointer helper. Spoke with seven Barrera he will page Dr Frias. 19:08 Initiated transfer at [facility] with Yulissa. Stated that campuses were at capacity but would tt3 check to see what she could do after receiving consult information and call back. 19:31 Called [facility] Transfer Center to update [facility] on some information and spoke with Arnoldo. tt3 Was connected to Yulissa and updated her. Call was then connected to NORMA Spicer, pt provider for consultation. 19:55 Per NORMA Spicer, request, I followed up with the answering service for Dr. Frias. tt3 19:59 Lilly with [facility] transfer center called with admin approval. The pt is going to [facility] tt3 ER. The accepting physician is Dr. Damon. Nurse to call report to . Face sheet and MOT faxed to per Lilly's request. Administered Medications: 16:23 CANCELLED (Physician Discretion): Xopenex (levalbuterol) (3) 1.25 mg Inhalation once cp 16:45 Drug: Coreg (carvedilol) 3.125 mg Route: PO; bp 18:20 Follow up: Response: No adverse reaction bp 18:00 Drug: Lasix (furosemide) 60 mg Route: IVP; Site: right forearm; bp 18:20 Follow up: Response: No adverse reaction bp Outcome: 18:50 ER care complete, transfer ordered by MD. cp 21:51 Patient left the ED. ms4 Signatures: Dispatcher [employer] EDNM Meme Collazo 1 Akira Riggs PA PA cp Martinez, Maria [facility] Machelle Riley co Herbert Alarcon, SHARRON MCDERMOTT Britt Bustos kj1 León Skelton tt3 Neelam Maldonado, Vianca Avalos RN, kg, RN RN ms4 Corrections: (The following items were deleted from the chart) 16:35 16:20 CORONAVIRUS+ drawn and sent. bp EDMS 16:58 16:15 Pain: Complains of pain in chest Pain does not radiate. Pain began bp bp
--- NOTE | 2021-04-10 18:51 | EDPHYS ---
Physician Documentation [facility] Name: Jarod Kraft Age: 65 yrs Sex: Male : 1955 Arrival Date: 04/10/2021 Time: 15:40 Bed 17 Private MD: ED Physician Oswald Alex HPI: 04/10 16:20 This 65 yrs old Male presents to ER via Ambulatory with complaints of Chest cp Pressure, Breathing Difficulty. 18:36 The patient has shortness of breath at rest. Onset: The symptoms/episode began/occurred cp gradually, and became worse today. Duration: The symptoms are continuous, and are steadily getting worse. Associated signs and symptoms: Pertinent positives: chest pain, diaphoresis, Pertinent negatives: productive cough, dizziness, fever, vomiting. Severity of symptoms: in the emergency department the symptoms are unchanged despite home interventions. Historical: - Allergies: 16:10 Erythromycin; kg 16:10 Cipro; kg - Home Meds: 16:10 Eliquis 2.5 mg oral tab 1 tab 2 times per day [Active]; amlodipine 10 mg tab 1 tab once kg daily [Active]; atorvastatin 40 mg Oral tab 1 tab once daily [Active]; carvedilol 25 mg Oral tab 1 tab 2 times per day [Active]; clonidine HCl 0.2 mg Oral tab 1 tab 3 times per day [Active]; Coreg 3.125 mg Oral tab 1 tab every 12 hours [Active]; furosemide 40 mg Oral tab 1 tab once daily [Active]; Lantus 20 units Sub-Q daily [Active]; isosorbide mononitrate 30 mg Oral Tb24 1 tab once daily [Active]; Levemir 100 unit/mL subcutaneous soln [Active]; levetiracetam 500 mg Oral tab 1 tab 2 times per day [Active]; - PMHx: 16:10 CHF; Diabetes - IDDM; High Cholesterol; Hypertension; Irregular heart rate; Pacemaker; kg 16:13 ESRD- M/W/F; kg - PSHx: 16:13 Cholecystectomy; Pacemaker; Dialysis Catheter; kg - Immunization history:: Client reports receiving the 2nd dose of the Covid vaccine, Date received: November 2020 Client reports receiving the 1st dose of the Covid vaccine, October 2020. - Social history:: Smoking status: Patient denies any tobacco usage or history of. ROS: 16:25 Constitutional: Negative for body aches, chills, fever, poor PO intake. cp 16:25 Cardiovascular: Positive for chest pain, Negative for edema, palpitations. 16:25 Eyes: Negative for injury, pain, redness, and discharge. cp 16:25 ENT: Negative for ear pain, sore throat, difficulty swallowing, difficulty handling secretions. 16:25 Respiratory: Positive for shortness of breath, at rest. Negative for cough, wheezing. 16:25 Abdomen/GI: Negative for abdominal pain, nausea, vomiting, and diarrhea. 16:25 Skin: Negative for rash. 16:25 Neuro: Negative for altered mental status, headache, syncope, weakness. 16:25 All other systems are negative. Exam: 16:08 ECG was reviewed by the Attending Physician. cp 16:28 Constitutional: The patient appears in no acute distress, alert, awake, non-toxic, well cp developed, well nourished, diaphoretic, obese. 16:28 Head/Face: Normocephalic, atraumatic. cp 16:28 Eyes: Periorbital structures: appear normal, Conjunctiva: normal, no exudate, no injection, Sclera: no appreciated abnormality, Lids and lashes: appear normal, bilaterally. 16:28 ENT: External ear(s): are unremarkable, Nose: is normal, Mouth: Lips: moist, Oral mucosa: moist, Posterior pharynx: Airway: no evidence of obstruction, patent. 16:28 Neck: ROM/movement: is normal, is supple, without pain, no range of motions limitations. 16:28 Chest/axilla: Inspection: normal, Palpation: is normal, no crepitus, no tenderness. 16:28 Cardiovascular: Rate: tachycardic, Rhythm: regular, Edema: is not appreciated, JVD: is not appreciated. 16:28 Respiratory: the patient does not display signs of respiratory distress, Respirations: labored breathing, that is mild, shallow respirations, that is mild, Breath sounds: bronchial sounds, that are mild, are heard diffusely, wheezing: is not appreciated. 16:28 Abdomen/GI: Inspection: obese Bowel sounds: active, all quadrants, Palpation: abdomen is soft and non-tender, in all quadrants. 16:28 Back: pain, is absent, ROM is normal. 16:28 Skin: no rash present. 16:28 Neuro: Orientation: to person, place \T\ time. Mentation: is normal, Motor: moves all fours, strength is normal. 16:50 ECG was reviewed by the Attending Physician. cp Vital Signs: 15:57 Pulse Ox 86% on R/A; kg 16:04 BP 141 / 60; Pulse 67; Resp 21; Temp 98.5(O); Pulse Ox 95% on 2 lpm NC; Weight 102.51 kg kg; Height 5 ft. 6 in. (167.64 cm); Pain 0/10; 16:21 BP 139 / 102; Pulse 127; Resp 24; Pulse Ox 92% ; bp 16:56 BP 152 / 96; Pulse 128; Resp 19; Pulse Ox 95% ; bp 18:00 BP 160 / 109; Pulse 127; Resp 28; Pulse Ox 97% on 3 lpm NC; bp 19:00 BP 123 / 93; Pulse 113; Resp 22; Pulse Ox 93% ; Pain 0/10; ms4 20:50 BP 130 / 71; Pulse 121; Resp 24; Pulse Ox 93% ; Pain 0/10; ms4 21:29 BP 136 / 92; Pulse 126; Resp 22; Temp 98; Pulse Ox 96% ; Pain 0/10; ms4 16:04 Body Mass Index 36.48 (102.51 kg, 167.64 cm) kg MDM: 16:12 Patient medically screened. cp 17:00 Differential diagnosis: pneumonia, Pneumothorax pulmonary edema, Pulmonary Embolism cp Unstable Angina cardiac arrythmia. 18:17 ED course: Consulted with Dr. Corbin, who recommends [employer] reprogramming given his rn sensing problem. Attempted magnet over device, but device is AICD so no effect with magnet. Given his a pacemaker sensing problem medications not likely to help. Attempting to contact patient's director of securities and real estate as well as [employer] to help, patient states does make urine so Lasix ordered for volume overload.. 18:34 ED course: Consulted with patient's director of securities and real estate, Dr. Frias, agrees patient could rn benefit from transfer to [place] given his his patient. Dr. Frias is going to try and arrange transfer with his hospital as well as contact [employer] claims representative. If unable to transfer or accommodate due to bed availability or lack thereof, plan would be to admit here with [employer] claims representative coming to reprogram and cardiology consultation.. 18:58 Data reviewed: vital signs, nurses notes, lab test result(s), EKG, radiologic studies, rn plain films, and as a result, I will admit patient. Data interpreted: monitoring coordinator: rate is 127 beats/min, rhythm is regular, atrial fibrillation, atrial flutter, with no ectopy, Interpretation: paced, tachycardia, Pulse oximetry: on room air is 86 %. Interpretation: hypoxia. Plan: O2 by NC applied. Counseling: I had a detailed discussion with the patient and/or guardian regarding: the historical points, exam findings, and any diagnostic results supporting the discharge/admit diagnosis, lab results, radiology results, the need to transfer to another facility, Personal director of securities and real estate in [place]. 04/10 16:11 Order name: Basic Metabolic Panel [facility] 04/10 16:11 Order name: CBC with Diff [facility] 04/10 16:11 Order name: LFT's; Complete Time: 18:32 [facility] 04/10 16:11 Order name: Magnesium; Complete Time: 18:32 [facility] 04/10 16:11 Order name: NT PRO-BNP; Complete Time: 18:32 [facility] 04/10 16:11 Order name: PT-INR; Complete Time: 17:06 [facility] 04/10 16:11 Order name: Troponin (emerg Dept Use Only); Complete Time: 18:32 [facility] 04/10 16:11 Order name: XRAY Chest (1 view); Complete Time: 17:06 [facility] 04/10 16:12 Order name: Basic Metabolic Panel; Complete Time: 18:32 [facility] 04/10 16:12 Order name: CBC with Automated Diff; Complete Time: 17:06 [facility] 04/10 17:07 Interpretation: Normal except: WBC 12.30; MCV 93.3; MCHC 31.6; RDW 18.6; MPV 7.0; NEUT cp A 8.2. 04/10 16:21 Order name: Glucose, Ancillary Testing; Complete Time: 16:23 [facility] 04/10 17:36 Order name: SARS-COV-2 RT PCR; Complete Time: 18:32 [facility] 04/10 18:19 Order name: BIPAP cp 04/10 16:11 Order name: EKG; Complete Time: 16:12 [facility] 04/10 16:11 Order name: Cardiac monitoring; Complete Time: 16:20 04/10 16:11 Order name: EKG - Nurse/Tech; Complete Time: 16:11 04/10 16:11 Order name: IV Saline Lock; Complete Time: 16:11 04/10 16:11 Order name: Labs collected and sent; Complete Time: 16:12 kj04/10 16:11 Order name: O2 Per Protocol; Complete Time: 16:12 04/10 16:11 Order name: O2 Sat Monitoring; Complete Time: 16:12 kj EC:08 Rate is 67 beats/min. Rhythm is regular. NJ interval is normal. QRS interval is normal. cp QT interval is normal. T waves are Inverted in leads I, aVL, aVR. Interpreted by me. Reviewed by me. 16:50 Rate is 127 beats/min. Rhythm is regular. QRS interval is prolonged at 166 msec. QT cp interval is normal. T waves are Inverted in leads I, aVL. Interpreted by me. Reviewed by me. Administered Medications: 16:23 CANCELLED (Physician Discretion): Xopenex (levalbuterol) (3) 1.25 mg Inhalation once cp 16:45 Drug: Coreg (carvedilol) 3.125 mg Route: PO; bp 18:20 Follow up: Response: No adverse reaction bp 18:00 Drug: Lasix (furosemide) 60 mg Route: IVP; Site: right forearm; bp 18:20 Follow up: Response: No adverse reaction bp Disposition: 18:19 Co-signature as Attending Physician, Oswald Alex MD I agree with the assessment and rn plan of care. PA/FITNESS SERVICES MANAGER's history reviewed, patient interviewed, and examined. HPI: 65 year old male with chest pain and sob, intermittent over last few days. No fever. Reports last dialysis yesterday and professor of forest planning told him labs looked good. My personal exam of patient reveals: + tachycardia with mild tachypnea. + diaphoresis. I agree with assessment and care plan and confirm the diagnosis (es) above. Disposition Summary: 04/10/21 18:50 Transfer Ordered Transfer Location: Other Acute Care Facility cp Reason: Higher level of care cp Condition: Stable cp Problem: new cp Symptoms: are unchanged cp Accepting Physician: DR Vaughn Damon(04/10/21 21:51) ms4 Diagnosis - Tachycardia, unspecified cp - Presence of cardiac pacemaker - malfunction cp Forms: - Medication Reconciliation Form cp - SBAR form cp Signatures: Dispatcher [employer] EDMS Oswald Alex MD MD rn Page, Corey, PA PA cp Herbert Alarcon, RN RN Britt Go kj1 Neelam Maldonado RN RN kg Vianca Roger RN RN ms4 Corrections: (The following items were deleted from the chart) 16:23 16:23 Xopenex (levalbuterol) (3) 1.25 mg Inhalation once ordered. cp cp 16:35 16:18 CORONAVIRUS+MR.LAB.BRZ ordered. EDMS EDMS 18:53 18:50 Doctor cp cp 21:13 18:53 DR Shaikh cp 21:51 21:13 DR Vaughn Damon ms4
[2021-04-10 22:30] VITALS: BP 136/92; TEMP 98; O2SAT 96
--- NOTE | 2021-04-11 11:10 | EKG ---
Test Date: 2021-04-10 Test Time: 16:01:27 Manufacturing Engineering Director: CORY MEASUREMENT RESULTS: Intervals: Rate: 67 PA: QRSD: 148 QT: 456 QTc: 481 [place]: P: PA: QRS: -86 T: 107 INTERPRETIVE STATEMENTS: AV sequential or dual chamber electronic pacemaker Compared to ECG 04/26/2020 23:50:55 Ventricular-paced complex(es) or rhythm no longer present Electronically Signed On 04-11-21 11:07:44 CDT by Shreyas Corbin
--- NOTE | 2021-04-11 11:10 | EKG ---
Test Date: 2021-04-10 Test Time: 16:45:25 Leasing Director: MANJINDER MEASUREMENT RESULTS: Intervals: Rate: 127 MO: QRSD: 166 QT: 394 QTc: 572 [place]: P: MO: QRS: -73 T: 100 INTERPRETIVE STATEMENTS: Electronic ventricular pacemaker Compared to ECG 04/10/2021 16:01:27 AV dual-paced complex(es) or rhythm no longer present Electronically Signed On 04-11-21 11:07:41 CDT by Shreyas Corbin
== END 2021-04-10 21:51 ==
LOC: ER 15:39
DX: R00.0 Tachycardia, unspecified (principal); T82.118A Breakdown (mechanical) of other cardiac electronic device, initial encounter; I13.2 Hypertensive heart and chronic kidney disease with heart failure and with stage 5 chronic kidney disease, or end stage renal disease; N18.6 End stage renal disease; I50.9 Heart failure, unspecified; Z20.822 Contact with and (suspected) exposure to COVID-19; Z79.01 Long term (current) use of anticoagulants; Z79.4 Long term (current) use of insulin; Z99.2 Dependence on renal dialysis; Z88.1 Allergy status to other antibiotic agents; Z88.3 Allergy status to other anti-infective agents
CPT/HCPCS: 93005 ×2; 85025; 80048; 36415; 83735; 85610; 82947; 80076; 84484; 83880; 71045; 94660; 96374; 99284; U0003

== ENCOUNTER 2021-08-17 15:19 | Inpatient (IN) | payer OTHER ==
--- OUTSIDE RECORDS SUMMARY | 2021-08-17 15:25 | XMS REPORT | Continuity of Care Document ---
:1955 Author Organization [facility] t Address [address] [place] [address] Care Team Providers Name Role Phone Monica Bardales Attending Clinician Unavailable Chris PANTOJA S Attending Clinician Chhaya Frias Attending Clinician Unavailable Eric Bardales Admitting Clinician Unavailable Physician, Primary or Family Admitting Clinician Unavailabl e Payers Payer Name Policy Type Policy Number Effective Date Expiration Date S ource Problems This patient has no known problems. Allergies, Adverse Reactions, Alerts Allergy Allergy Status Severity Reaction(s) Onset Inactive Treating Comm ents Source Name Type Date Date Clinician erythrom DA Active U [facility]KNOWN [facility]10 [place] 00:00: [address] ciproflo DA Active U UNKNOWN [facility] xacin 8 00:00: [address] erythrom DA Active U 0 [facility] y[facility] 04-10 [place] base 00:00: [address] ciproflo DA Active U [facility] xacin 04-10 00:00: [address] Erythrom Propensi Active Other - See "Burning Univers ycin ty to comments 2-18 in ity of adverse 00:00: stomach." [place] reaction [address] [place] [address] Branch ERYTHROM DRUG Active Other-Cmnt 2020-0 Univ ers YCIN 2-18 ity of 00:00: [place] 00 [facility] azithrom DA Active DE 2019-1 [facility] y[facility] 0-22 [place] 00:00: [place] [facility] azithrom DA Active DE BURNING 2018-1 [facility] y[facility] SENSATION 0-22 [place] ABDOMEN 00:00: [place] [facility] azithrom DA Active [place] 2015-0 [facility] y[facility] 3-27 [place] 00:[facility]: [facility] NO KNOWN Drug Active Univers ALLERGIE Class ity of [facility] Social History Social Habit Start Date Stop Date Quantity Comments Source [facility] [place] [facility] to SARS-CoV-2 Not sure [facility] Smoking Status Start Date Stop Date Source Unknown if ever smoked [facility] Medications This patient has no known medications. Vital Signs Vital Name Observation Time Observation Value Comments Source Systolic blood 2020-10-10 11:41:00 152 mm[Hg] [facility] Diastolic blood 2020-10-10 11:41:00 93 mm[Hg] [facility] Heart rate 2020-10-10 11:41:00 89 /min [facility] Body temperature 2020-10-10 11:41:00 36.5 Kathy [facility] Respiratory rate 2020-10-10 11:41:00 16 /min [facility] Body height 2020-10-10 11:41:00 167.6 cm [facility] Body weight 2020-10-10 11:41:00 101.152 kg [facility] BMI 2020-10-10 11:41:00 35.99 kg/m2 [facility] Oxygen saturation in 2020-10-10 11:41:00 99 /min [facility] Arterial blood by [facility] Pulse oximetry Branch Systolic blood 2020-10-10 11:41:00 152 mm[Hg] [facility] Diastolic blood 2020-10-10 11:41:00 93 mm[Hg] [facility] Heart rate 2020-10-10 11:41:00 89 /min [facility] Body temperature 2020-10-10 11:41:00 36.5 Kathy [facility] Respiratory rate 2020-10-10 11:41:00 16 /min [facility] Body height 2020-10-10 11:41:00 167.6 cm [facility] Body weight 2020-10-10 11:41:00 101.152 kg [facility] BMI 2020-10-10 11:41:00 35.99 kg/m2 [facility] Oxygen saturation in 2020-10-10 11:41:00 99 /min [facility] Arterial blood by [facility] Pulse oximetry Branch Procedures Procedure Date / Time Performed Performing Clinician Blaire akers [id number] 2021-04-16 00:00:00 [facility] [id number] 2021-04-14 00:00:00 [facility] [id number] 2021-04-12 00:00:00 [facility] [id number] 2021-04-12 00:00:00 [facility] [id number] 2021-04-12 00:00:00 [facility] [id number] 2021-04-12 00:00:00 [facility] [id number] 2021-04-11 00:00:00 [facility] [id number] 2021-04-10 00:00:00 [facility] [id number] 2021-04-10 00:00:00 [facility] [id number] 2021-04-10 00:00:00 [facility] NOTICE OF PRIVACY 2020-10-10 11:34:50 Doctor Unassigned, No Univ [facility] PRACTICES Name Medical Branch CONSENT/REFUSAL FOR 2020-10-10 11:33:32 Doctor Unassigned, No [facility] DIAGNOSIS AND Name Medical Branch TREATMENT Encounters Start End Encounter Admission Attending Care Care Encounter Source Date/Time Date/Time Type Type Clinicians Facility Department ID 2021-04-10 2021-04-17 Inpatient EM Monica Bardales [facility] TELE [id number] [facility] 23:30:00 17:46:00 [id number] [facility] 2021-04-10 2021-04-17 Inpatient EM Monica Bardales [facility] TELE [id number] [facility] 23:30:00 17:46:00 54 [facility] 2020-10-10 2020-10-10 Emergency [facility] [id number] [facility] 05:46:00 06:35:00 [id number] [id number] [address] 2020-10-10 2020-10-10 Emergency [facility] [id number] 05:46:00 06:35:00 Rubi Sales [id number] [place] [id number] [place] [id number] [facility] 2020-10-10 2020-10-10 Emergency X [facility] ERT [id number] Univers 05:31:00 05:[facility] 2020-09-23 2020-09-23 Outpatient AltagraciaYOLANDAWU SURG [id number] [facility] 10:30:00 10:30:00 Gaudencio [id number] [facility] Results Test Description Test Time Test Comments Results Result Comments Source GLUCOSE BEDSIDE TESTING 2021-04-17 16:16:00 Test Item Value Reference Range Interpretation Comme nts GLUCOSE BEDSIDE TESTING (test code = GLUBED) 153 MG/DL 60-99 H GLUCOSE BEDSIDE [id number] 10:53:00 Test Item Value Reference Range Interpretation Comments GLUCOSE BEDSIDE TESTING (test code 167 MG/DL 60-99 H = GLUBED) GLUCOSE BEDSIDE [id number] 07:16:00 Test Item Value Reference Range Interpretation Comments GLUCOSE BEDSIDE TESTING (test code 101 MG/DL 60-99 H = GLUBED) GLUCOSE BEDSIDE [id number] 20:21:00 Test Item Value Reference Range Interpretation Comments GLUCOSE BEDSIDE TESTING (test code 131 MG/DL 60-99 H = GLUBED) - [facility] R/S [id number] 16:47:00 [facility] 1955 Sex: M Patient Name: JAROD GOTTLIEB Unit No: [id number] EXAMS: CPT CODE: [id number] NM MUGA R/S SINGLE 11033 Indication: Ventricular malfunction. MUGA scan: RADIOPHARMACEUTICAL: 24.5mCi [id number] RBC COMPARISON: None. LOCATION: C3 FINDINGS: Following IV administration of 24.5 mCi Tc-99m UltraTag labeled red blood cells, imaging was performed of the heart in the [place] projection. Dynamic playback demonstrates grossly hypokinetic left ventricular contraction. The LVEF is 29%. (The normal LVEF for this institution is 50%.) Peak filling rate is 1.14 EDV per second (normal greater than 2.5 EDV per second) and the time topeak filling is 126 msec (normal less than 180 msec). IMPRESSION: 1. Abnormal MUGA scan with LVEF of 29%. at 1647 Reported and signed by: Johan Fang MD CC: Desmond Leon MD; Cheyenne GREEN Technologist: Manuel WATERST; Parminder Grant, RT(N)Transcrpt Date/Tm/Trnsp: 04/16/2021 (1646) [id number] Orig Print D/T: S: 04/16/2021 (165) [facility] NAME: JAROD GOTTLIEB [id number] PHYS: [place] [address] : 1955 AGE: 65 SEX: M LOC: Tyrell Thompson PHONE #: [phone] EXAM DATE: 04/16/2021 STATUS: ADMIN FAX #: [phone] RADIOLOGY NO: PAGE 1 Signed ReportGLUCOSE BEDSIDE [id number] 16:43:00 Test Item Value Reference Range Interpretation Comments GLUCOSE BEDSIDE TESTING (test code 157 MG/DL 60-99 H = GLUBED) GLUCOSE BEDSIDE [id number] 13:45:00 Test Item Value Reference Range Interpretation Comments GLUCOSE BEDSIDE TESTING (test code 214 MG/DL 60-99 H = GLUBED) GLUCOSE BEDSIDE [id number] 07:33:00 Test Item Value Reference Range Interpretation Comments GLUCOSE BEDSIDE TESTING (test code 104 MG/DL 60-99 H = GLUBED) CBC W/AUTO [id number] 05:50:00 Test Item Value Reference Range Interpretation Comments WHITE BLOOD CELL (test code = 10.5 K/MM3 3.8-9.8 H WBC) RED BLOOD CELL (test code = 4.74 M/MM3 3.95-5.67 N RBC) HEMOGLOBIN (test code = HGB) 13.9 G/DL 12.4-16.7 N HEMATOCRIT (test code = HCT) 45.0 % 35.9-49.5 N MEAN CELL VOLUME (test code = 95 fL 81.7-96.1 N MCV) MEAN CELL HGB (test code = MCH) 29.3 pg 27.6-33.2 N MEAN CELL HGB CONCETRATION 30.9 % 32.9-35.5 L (test code = MCHC) RED CELL DISTRIBUTION WIDTH 17.1 % 12.1-15.2 H (test code = RDW) PLATELET COUNT (test code = 198 K/MM3 129-368 N PLT) MEAN PLATELET VOLUME (test code 9.1 fl 7.4-10.4 N = MPV) NEUTROPHIL % (test code = NT%) 59.2 % 43-75 N IMMATURE GRANULOCYTE % (test 1.3 % 0.0-2.0 N code = IG%) LYMPHOCYTE % (test code = LY%) 24.7 % 14-44 N MONOCYTE % (test code = MO%) 8.7 % 4-13 N EOSINOPHIL % (test code = EO%) 5.3 % 0-6 N BASOPHIL % (test code = BA%) 0.8 % 0-2 N NUCLEATED RBC % (test code = 0.0 % 0-1.0 N NRBC%) NEUTROPHIL # (test code = NT#) 6.20 K/mm3 2.0-7.6 N IMMATURE GRANULOCYTE # (test 0.14 x10 3/uL 0-0.03 H code = IG#) LYMPHOCYTE # (test code = LY#) 2.58 K/mm3 1.0-3.8 N MONOCYTE # (test code = MO#) 0.91 K/mm3 0.1-0.8 H EOSINOPHIL # (test code = EO#) 0.55 K/mm3 0.0-0.2 H BASOPHIL # (test code = BA#) 0.08 K/mm3 0.0-0.2 N NUCLEATED RBC # (test code = 0.00 K/mm3 0.0-0.1 N NRBC#) BASIC METABOLIC [id number] 05:49:00 Test Item Value Reference Range Interpretation Comments SODIUM (test code = 135 MMOL/L 137-145 L NA) POTASSIUM (test code = 4.1 MMOL/L 3.5-5.1 N K) CHLORIDE (test code = 99 MMOL/L 98-107 N CL) CARBON DIOXIDE (test 22 MMOL/L 22-30 N code = CO2) ANION GAP (test code = 18 MMOL/L 14-24 N GAP) GLUCOSE (test code = 109 MG/DL 74-106 H GLU) BLOOD UREA NITROGEN 65 MG/DL 9-20 H (test code = BUN) GLOMERULAR FILTRATION 7 Report ing units: RATE (test code = GFR) ml/mi n/1.73 m2 (Modified MDRD Formula)Referen ce Range: > or = 6 0 ml/min/1.73 m2 CREATININE (test code 7.60 MG/DL 0.66-1.25 H = CREAT) CALCIUM (test code = 8.8 MG/DL 8.4-10.2 N CA) GLUCOSE BEDSIDE [id number] 19:53:00 Test Item Value Reference Range Interpretation Comments GLUCOSE BEDSIDE TESTING (test code 176 MG/DL 60-99 H = GLUBED) GLUCOSE BEDSIDE [id number] 15:17:00 Test Item Value Reference Range Interpretation Comments GLUCOSE BEDSIDE TESTING (test code 140 MG/DL 60-99 H = GLUBED) GLUCOSE BEDSIDE [id number] 11:46:00 Test Item Value Reference Range Interpretation Comments GLUCOSE BEDSIDE TESTING (test code 192 MG/DL 60-99 H = GLUBED) ARTERIAL BLOOD [id number] 11:00:00 Test Item Value Reference Range Interpretation Comments ARTERIAL BLOOD GAS PH 7.39 mmHg 7.35-7.45 N (test code = PHA) ARTERIAL BLOOD GAS 38.2 mmHg 35.0-45.0 N PCO2 (test code = PCO2A) ARTERIAL BLOOD GAS 278.1 mmol/L 80.0-100.0 H PO2 (test code = PO2A) BICARBONATE TOTAL 22.8 mmol/L 20.0-26.0 N HCO3 (test code = HCO3) BASE EXCESS (test -1.7 mmol/L -3.0-3.0 N code = RANGEL) ABG O2 SATURATION 99.6 % 95.0-100.0 N (test code = SATA) ABG DELIVERY (test BIPAP code = MARTHA) ABG VENT RESP RATE 12.0 /MIN (test code = RRA) ABG PEEP (test code = 8.0 cmH2O PEEPA) ABG PRESSURE SUPPORT 12 cmH2O (test code = PSABG) ABG TEMPERATURE (test 37.0 C See_Comment [Auto mated message] code = TEMPA) The system Apto generated this result transmit jose juan reference range : 37. The reference r yasmani was not used to interpret this result as normal/abnormal . ABG SITE (test code = RR SITEA) ALLENS TEST (test Y CHECK code = ALLENS) FIO2 (test code = 60 % COHBGFFIO2) PaO2/[id number] 11:00:00 Test Item Value Reference Range Interpretation Comments PaO2/FiO2 (test code = [id number]) 463.50 mm/Hg ARTERIAL BLOOD [id number] 10:53:00 Test Item Value Reference Range Interpretation Comments ARTERIAL BLOOD GAS 7.29 mmHg 7.35-7.45 L PH (test code = PHA) ARTERIAL BLOOD GAS 35.7 mmHg 35.0-45.0 N PCO2 (test code = PCO2A) ARTERIAL BLOOD GAS 119.9 mmol/L 80.0-100.0 H PO2 (test code = PO2A) BICARBONATE TOTAL 16.8 mmol/L 20.0-26.0 L HCO3 (test code = HCO3) BASE EXCESS (test -8.8 mmol/L -3.0-3.0 L code = RANGEL) ABG O2 SATURATION 98.0 % 95.0-100.0 N All critic al values (test code = SATA) report to and readback by Hilary arguelles by KATHRYN at 03/24 2:09:37 AM ABG DELIVERY (test BIPAP code = MARTHA) ABG VENT RESP RATE 12.0 /MIN (test code = RRA) ABG PEEP (test code 10.0 cmH2O = PEEPA) ABG PRESSURE 14 cmH2O SUPPORT (test code = PSABG) ABG TEMPERATURE 37.0 C See_Comment [Automated message] (test code = TEMPA) The syst em which generated this result transmitted ref erence range: 37. The reference range was not used to int erpret this result as normal/abnormal . ABG SITE (test code LR = SITEA) ALLENS TEST (test Y CHECK code = ALLENS) FIO2 (test code = 50 % COHBGFFIO2) PaO2/[id number] 10:53:00 Test Item Value Reference Range Interpretation Comments PaO2/FiO2 (test code = [id number]) 239.80 mm/Hg GLUCOSE BEDSIDE [id number] 07:25:00 Test Item Value Reference Range Interpretation Comments GLUCOSE BEDSIDE TESTING (test code 105 MG/DL 60-99 H = GLUBED) GLUCOSE BEDSIDE [id number] 22:06:00 Test Item Value Reference Range Interpretation Comments GLUCOSE BEDSIDE TESTING (test code 171 MG/DL 60-99 H = GLUBED) GLUCOSE BEDSIDE [id number] 15:26:00 Test Item Value Reference Range Interpretation Comments GLUCOSE BEDSIDE TESTING (test code 137 MG/DL 60-99 H = GLUBED) GLUCOSE BEDSIDE [id number] 11:30:00 Test Item Value Reference Range Interpretation Comments GLUCOSE BEDSIDE TESTING (test code 152 MG/DL 60-99 H = GLUBED) BASIC METABOLIC [id number] 10:51:00 Test Item Value Reference Range Interpretation Comments SODIUM (test code = 136 MMOL/L 137-145 L NA) POTASSIUM (test code = 4.5 MMOL/L 3.5-5.1 N K) CHLORIDE (test code = 98 MMOL/L 98-107 N CL) CARBON DIOXIDE (test 21 MMOL/L 22-30 L code = CO2) ANION GAP (test code = 22 MMOL/L 14-24 N GAP) GLUCOSE (test code = 105 MG/DL 74-106 N GLU) BLOOD UREA NITROGEN 89 MG/DL 9-20 H (test code = BUN) GLOMERULAR FILTRATION 5 Report ing units: RATE (test code = GFR) ml/mi n/1.73 m2 (Modified MDRD Formula)Referen ce Range: > or = 6 0 ml/min/1.73 m2 CREATININE (test code 9.80 MG/DL 0.66-1.25 H = CREAT) CALCIUM (test code = 8.4 MG/DL 8.4-10.2 N CA) GLUCOSE BEDSIDE [id number] 07:50:00 Test Item Value Reference Range Interpretation Comments GLUCOSE BEDSIDE TESTING (test code = 88 MG/DL 60-99 N GLUBED) GLUCOSE BEDSIDE [id number] 19:41:00 Test Item Value Reference Range Interpretation Comments GLUCOSE BEDSIDE TESTING (test code 127 MG/DL 60-99 H = GLUBED) GLUCOSE BEDSIDE [id number] 16:56:00 Test Item Value Reference Range Interpretation Comments GLUCOSE BEDSIDE TESTING (test code 128 MG/DL 60-99 H = GLUBED) GLUCOSE BEDSIDE [id number] 11:27:00 Test Item Value Reference Range Interpretation Comments GLUCOSE BEDSIDE TESTING (test code 136 MG/DL 60-99 H = GLUBED) - XR CHEST 2 [id number] 09:56:00 [facility] : 1955 Sex: M Patient Name: JAROD GOTTLIEB Unit No: [id number] EXAMS: CPT CODE: [id number] XR CHEST 2 V 21520 C3 TIME OF STUDY: 04/13/2021 9:00 AM REASON FOR EXAM: EFFUSION COMPARISON: April 11, 2021 FINDINGS: PA and lateral upright views of the chest were obtained. Support devices: Stable. Lungs: There is interval improvement in bilateral airspace opacities. Pleura: No pneumothorax. There is a small left pleural effusion. Heart and Mediastinum: Stable c ardiomegaly. Bones: Normal regional skeletal structures. IMPRESSION: 1. Interval improvement in chest radiograph. Small left pleural effusion. at 0956 Reported and signed by: Shaw Abreu MD CC: Halie Hidalgo MD; Desmond Leon MD Technologist: Ethan Mcneill (RT) (R) Transcrpt Date/Tm/Trnsp: 04/13/2021 (0956) [email or web address] Orig Print D/T: S: 04/13/2021 (0959) [facility] NAME: JAROD GOTTLIEB [id number] PHYS: [place] [address] : 1955 AGE: 65 SEX: M LOC: [id number].363 A PHONE #: [phone] EXAM DATE: 04/13/2021 STATUS: ADM IN FAX #: [phone] RADIOLOGY NO: PAGE 1 Signed ReportGLUCOSE BEDSIDE TESTING 2021-04-13 07:30:00 Test Item Value Reference Range Interpretation Comments GLUCOSE BEDSIDE TESTING (test code 117 MG/DL 60-99 H = GLUBED) BASIC METABOLIC [id number] 05:41:00 Test Item Value Reference Range Interpretation Comments SODIUM (test code = 137 MMOL/L 137-145 N NA) POTASSIUM (test code = 5.1 MMOL/L 3.5-5.1 N K) CHLORIDE (test code = 99 MMOL/L 98-107 N CL) CARBON DIOXIDE (test 22 MMOL/L 22-30 N code = CO2) ANION GAP (test code = 21 MMOL/L 14-24 N GAP) GLUCOSE (test code = 105 MG/DL 74-106 N GLU) BLOOD UREA NITROGEN 67 MG/DL 9-20 H (test code = BUN) GLOMERULAR FILTRATION 7 Report ing units: RATE (test code = GFR) ml/mi n/1.73 m2 (Modified MDRD Formula)Referen ce Range: > or = 6 0 ml/min/1.73 m2 CREATININE (test code 8.00 MG/DL 0.66-1.25 H = CREAT) CALCIUM (test code = 9.2 MG/DL 8.4-10.2 N CA) CBC W/AUTO [id number] 05:29:00 Test Item Value Reference Range Interpretation Comments WHITE BLOOD CELL (test code = 12.7 K/MM3 3.8-9.8 H WBC) RED BLOOD CELL (test code = 4.87 M/MM3 3.95-5.67 N RBC) HEMOGLOBIN (test code = HGB) 14.4 G/DL 12.4-16.7 N HEMATOCRIT (test code = HCT) 46.7 % 35.9-49.5 N MEAN CELL VOLUME (test code = 96 fL 81.7-96.1 N MCV) MEAN CELL HGB (test code = MCH) 29.6 pg 27.6-33.2 N MEAN CELL HGB CONCETRATION 30.8 % 32.9-35.5 L (test code = MCHC) RED CELL DISTRIBUTION WIDTH 17.0 % 12.1-15.2 H (test code = RDW) PLATELET COUNT (test code = 193 K/MM3 129-368 N PLT) MEAN PLATELET VOLUME (test code 9.4 fl 7.4-10.4 N = MPV) NEUTROPHIL % (test code = NT%) 65.6 % 43-75 N IMMATURE GRANULOCYTE % (test 1.1 % 0.0-2.0 N code = IG%) LYMPHOCYTE % (test code = LY%) 22.8 % 14-44 N MONOCYTE % (test code = MO%) 7.7 % 4-13 N EOSINOPHIL % (test code = EO%) 2.0 % 0-6 N BASOPHIL % (test code = BA%) 0.8 % 0-2 N NUCLEATED RBC % (test code = 0.0 % 0-1.0 N NRBC%) NEUTROPHIL # (test code = NT#) 8.32 K/mm3 2.0-7.6 H IMMATURE GRANULOCYTE # (test 0.14 x10 3/uL 0-0.03 H code = IG#) LYMPHOCYTE # (test code = LY#) 2.89 K/mm3 1.0-3.8 N MONOCYTE # (test code = MO#) 0.98 K/mm3 0.1-0.8 H EOSINOPHIL # (test code = EO#) 0.26 K/mm3 0.0-0.2 H BASOPHIL # (test code = BA#) 0.10 K/mm3 0.0-0.2 N NUCLEATED RBC # (test code = 0.00 K/mm3 0.0-0.1 N NRBC#) GLUCOSE BEDSIDE [id number] 20:06:00 Test Item Value Reference Range Interpretation Comments GLUCOSE BEDSIDE TESTING (test code 147 MG/DL 60-99 H = GLUBED) GLUCOSE BEDSIDE [id number] 16:50:00 Test Item Value Reference Range Interpretation Comments GLUCOSE BEDSIDE TESTING (test code 139 MG/DL 60-99 H = GLUBED) COVID 19 Asymptomatic IH [id number] 16:16:00 Test Item Value Reference Range Interpretation Comments [...] amount of virus (antigen) in the sample." Spec Comments: PT TO HAVE PROCEDURE AT 0800 PLEASE DO ASAPBASIC METABOLIC PANEL 2021-04-12 15:29:00 Test Item Value Reference Range Interpretation Comments SODIUM (test code = 137 MMOL/L 137-145 N NA) POTASSIUM (test code = 4.7 MMOL/L 3.5-5.1 N K) CHLORIDE (test code = 99 MMOL/L 98-107 N CL) CARBON DIOXIDE (test 25 MMOL/L 22-30 N code = CO2) ANION GAP (test code = 18 MMOL/L 14-24 N GAP) GLUCOSE (test code = 116 MG/DL 74-106 H GLU) BLOOD UREA NITROGEN 54 MG/DL 9-20 H (test code = BUN) GLOMERULAR FILTRATION 9 Report ing units: RATE (test code = GFR) ml/mi n/1.73 m2 (Modified MDRD Formula)Referen ce Range: > or = 6 0 ml/min/1.73 m2 CREATININE (test code 6.50 MG/DL 0.66-1.25 H = CREAT) CALCIUM (test code = 9.2 MG/DL 8.4-10.2 N CA) UNABLE TO DRAW BLOOD, REASON: PT TRANSFER TO CATHNOTIFIED PATIENT CARE STAFF: SHARRON HutchinsON 04/12/21755 BY Imtiaz [id number] 15:29:00 Test Item Value Reference Range Interpretation Comments PHOSPHOROUS (test code = PHOS) 6.3 MG/DL 2.5-4.5 H UNABLE TO DRAW BLOOD, REASON: PT TRANSFER TO CATHNOTIFIED PATIENT CARE STAFF: SHARRON HutchinsON 04/12/21755 BY Sd [id number] 15:29:00 Test Item Value Reference Range Interpretation Comments MAGNESIUM (test code = MAG) 2.3 MG/DL 1.6-2.3 N UNABLE TO DRAW BLOOD, REASON: PT TRANSFER TO CATHNOTIFIED PATIENT CARE STAFF: SHARRON HutchinsON 04/12/21755 BY Hemanth MalinamPROTHROMBIN [id number] 15:17:00 Test Item Value Reference Range Interpretation Comments PROTHROMBIN TIME 14.3 SECONDS 9.5-12.7 H PATIENT (test code = PTP) INTERNATIONAL NORMAL 1.3 0.86-1.14 H The INR is to be RATIO (test [...] recurrent syste lars embolism. 3.0 - 4.5 UNABLE TO DRAW BLOOD, REASON: PT TRANSFER TO CATHNOTIFIED PATIENT CARE STAFF: SHARRON HutchinsON 04/12/21755 BY Adelina Malin [id number] 15:17:00 Test Item Value Reference Range Interpretation Comments PTT ACTIVATED (test code = APTT) 47.4 SECONDS 25.1-36.5 H UNABLE TO DRAW BLOOD, REASON: PT TRANSFER TO CATHNOTIFIED PATIENT CARE STAFF: SHARRON HutchinsON 04/12/21755 BY Madhu MalinLACTIC [id number] 15:17:00 Test Item Value Reference Range Interpretation Comments LACTIC ACID (test code = LACT) 1.4 MMOL/L 0.7-2.1 N CBC W/AUTO [id number] 14:57:00 Test Item Value Reference Range Interpretation Comments WHITE BLOOD CELL (test code = 14.8 K/MM3 3.8-9.8 H WBC) RED BLOOD CELL (test code = 4.98 M/MM3 3.95-5.67 N RBC) HEMOGLOBIN (test code = HGB) 15.0 G/DL 12.4-16.7 N HEMATOCRIT (test code = HCT) 48.5 % 35.9-49.5 MEAN CELL VOLUME (test code = 97 fL 81.7-96.1 H MCV) MEAN CELL HGB (test code = MCH) 30.1 pg 27.6-33.2 N MEAN CELL HGB CONCETRATION 30.9 % 32.9-35.5 L (test code = MCHC) RED CELL DISTRIBUTION WIDTH 17.2 % 12.1-15.2 H (test code = RDW) PLATELET COUNT (test code = 166 K/MM3 129-368 N PLT) MEAN PLATELET VOLUME (test code 9.2 fl 7.4-10.4 N = MPV) NEUTROPHIL % (test code = NT%) 69.8 % 43-75 N IMMATURE GRANULOCYTE % (test 0.8 % 0.0-2.0 N code = IG%) LYMPHOCYTE % (test code = LY%) 17.7 % 14-44 N MONOCYTE % (test code = MO%) 10.2 % 4-13 N EOSINOPHIL % (test code = EO%) 1.0 % 0-6 N BASOPHIL % (test code = BA%) 0.5 % 0-2 N NUCLEATED RBC % (test code = 0.0 % 0-1.0 N NRBC%) NEUTROPHIL # (test code = NT#) 10.36 K/mm3 2.0-7.6 H IMMATURE GRANULOCYTE # (test 0.12 x10 3/uL 0-0.03 H code = IG#) LYMPHOCYTE # (test code = LY#) 2.62 K/mm3 1.0-3.8 N MONOCYTE # (test code = MO#) 1.51 K/mm3 0.1-0.8 H EOSINOPHIL # (test code = EO#) 0.15 K/mm3 0.0-0.2 N BASOPHIL # (test code = BA#) 0.08 K/mm3 0.0-0.2 N NUCLEATED RBC # (test code = 0.00 K/mm3 0.0-0.1 N NRBC#) UNABLE TO DRAW BLOOD, REASON: PT TRANSFER TO [facility] PATIENT CARE STAFF: SHARRON HutchinsON 04/12/21AT 0757 BY Madhu MalinGLUCOSE BEDSIDE [id number] 12:15:00 Test Item Value Reference Range Interpretation Comments GLUCOSE BEDSIDE TESTING (test code 104 MG/DL 60-99 H = GLUBED) GLUCOSE BEDSIDE [id number] 11:18:00 Test Item Value Reference Range Interpretation Comments GLUCOSE BEDSIDE TESTING (test code = 56 MG/DL 60-99 L GLUBED) GLUCOSE BEDSIDE [id number] 09:13:00 Test Item Value Reference Range Interpretation Comments GLUCOSE BEDSIDE TESTING (test code = 70 MG/DL 60-99 N GLUBED) LACTIC [id number] 05:32:00 Test Item Value Reference Range Interpretation Comments LACTIC ACID (test code = LACT) 2.1 MMOL/L 0.7-2.1 N UNABLE TO DRAW BLOOD, REASON: CBNNOTIFIED PATIENT CARE STAFF: YOAV 04/12/21 AT 0209 BY Chung CharltonCTIC [id number] 21:43:00 Test Item Value Reference Range Interpretation Comments LACTIC ACID (test code = LACT) 3.7 MMOL/L 0.7-2.1 H GLUCOSE BEDSIDE [id number] 21:30:00 Test Item Value Reference Range Interpretation Comments GLUCOSE BEDSIDE TESTING (test code 175 MG/DL 60-99 H = GLUBED) LACTIC [id number] 18:53:00 Test Item Value Reference Range Interpretation Comments LACTIC ACID (test code = LACT) 3.7 MMOL/L 0.7-2.1 H PROTHROMBIN [id number] 18:37:00 Test Item Value Reference Range Interpretation Comments PROTHROMBIN TIME 15.8 SECONDS 9.5-12.7 H PATIENT (test code = PTP) INTERNATIONAL NORMAL 1.4 0.86-1.14 H The INR is to be RATIO (test [...] recurrent syste lars embolism. 3.0 - 4.5 UNABLE TO DRAW BLOOD, REASON: CBNNOTIFIED PATIENT CARE STAFF: ARLEEN 04/11/21 AT 1809 BY Nimisha Jones [id number] 18:37:00 Test Item Value Reference Range Interpretation Comments PTT ACTIVATED (test code = APTT) 56.3 SECONDS 25.1-36.5 H UNABLE TO DRAW BLOOD, REASON: CBNNOTIFIED PATIENT CARE STAFF: ARLEEN 04/11/21 AT 1809 BY Carmina Jones BLOOD [id number] 17:57:00 Test Item Value Reference Range Interpretation Comments ARTERIAL BLOOD GAS PH 7.39 mmHg 7.35-7.45 N (test code = PHA) ARTERIAL BLOOD GAS 38.2 mmHg 35.0-45.0 N PCO2 (test code = PCO2A) ARTERIAL BLOOD GAS 278.1 mmol/L 80.0-100.0 H PO2 (test code = PO2A) BICARBONATE TOTAL 22.8 mmol/L 20.0-26.0 N HCO3 (test code = HCO3) BASE EXCESS (test -1.7 mmol/L -3.0-3.0 N code = RANGEL) ABG O2 SATURATION 99.6 % 95.0-100.0 N (test code = SATA) ABG DELIVERY (test BIPAP code = MARTHA) ABG VENT RESP RATE 12.0 /MIN (test code = RRA) ABG PEEP (test code = 8.0 cmH2O PEEPA) ABG TEMPERATURE (test 37.0 C See_Comment [Auto mated message] code = TEMPA) The system Apto generated this result transmit jose juan reference range : 37. The reference r yasmani was not used to interpret this result as normal/abnormal . ABG SITE (test code = RR SITEA) ALLENS TEST (test Y CHECK code = ALLENS) FIO2 (test code = 60 % COHBGFFIO2) PaO2/[id number] 17:57:00 Test Item Value Reference Range Interpretation Comments PaO2/FiO2 (test code = [id number]) mm/Hg ARTERIAL BLOOD [id number] 17:57:00 Test Item Value Reference Range Interpretation Comments ARTERIAL BLOOD GAS PH 7.39 mmHg 7.35-7.45 N (test code = PHA) ARTERIAL BLOOD GAS 38.2 mmHg 35.0-45.0 N PCO2 (test code = PCO2A) ARTERIAL BLOOD GAS 278.1 mmol/L 80.0-100.0 H PO2 (test code = PO2A) BICARBONATE TOTAL 22.8 mmol/L 20.0-26.0 N HCO3 (test code = HCO3) BASE EXCESS (test -1.7 mmol/L -3.0-3.0 N code = RANGEL) ABG O2 SATURATION 99.6 % 95.0-100.0 N (test code = SATA) ABG DELIVERY (test BIPAP code = MARTHA) ABG VENT RESP RATE 12.0 /MIN (test code = RRA) ABG PEEP (test code = 8.0 cmH2O PEEPA) ABG TEMPERATURE (test 37.0 C See_Comment [Auto mated message] code = TEMPA) The system Apto generated this result transmit jose juan reference range : 37. The reference r yasmani was not used to interpret this result as normal/abnormal . ABG SITE (test code = RR SITEA) ALLENS TEST (test Y CHECK code = ALLENS) FIO2 (test code = 60 % COHBGFFIO2) PaO2/[id number] 17:57:00 Test Item Value Reference Range Interpretation Comments PaO2/FiO2 (test code = BOL8HUA2) 463.50 mm/Hg LACTIC [id number] 15:50:00 Test Item Value Reference Range Interpretation Comments LACTIC ACID (test code = LACT) 4.5 MMOL/L 0.7-2.1 H AG HEPATITIS B [id number] 12:09:00 Test Item Value Reference Range Interpretation Comments AG HEPATITIS B SURFACE (test code = NEGATIVE NONREACTIVE HBSAG) [id number] 09:02:00 Test Item Value Reference Range Interpretation Comments TROPONIN-I (test 20.600 NG/ML 0.012-0.033 HH CALLED TO Jay Reynolds& code = TROPI) READBACK ON AT 0902 BY KARLA MAYA CHEST [id number] 08:19:00 [facility] : 1955 Sex: M Patient Name: JAROD GOTTLEIB Unit No: [id number] EXAMS: CPT CODE: [id number] XR CHEST 1V 19569 HISTORY: Shortness of breath, pacer malfunction Location code: B2 FINDINGS: Frontal view of the chest demonstrates a mildly prominent cardiomediastinal silhouette, with central venous congestion. The trachea is midline. Mild interstitial edema trace effusions. No pneumothorax. The bones are intact. Right IJ dual-lumen catheter is intact. Left pacer device is intact. IMPRESSION: Mild cardiomegaly and central venous congestion without acute decompensation. ElectronicallySigned by Jorge L Saravia on 04/11/2021 at 0819 Reported and signed by: Gomez obrien M.D. CC: Sarina Bingham MD; Desmond Leon MD Technologist: Lizzy Danielson Transcrpt Date/Tm/Trnsp: 04/11/2021 (0819) [email or web address] Orig Print D/T: S: 04/11/2021 (0823) [facility] NAME: JAROD GOTTLIEB [id number] PHYS: [id number] [place] [address] : 1955 AGE: 65 SEX: M LOC: ELSIE Garcia PHONE #: [phone] EXAM DATE: 04/11/2021 STATUS: ADM IN FAX #: [phone] RADIOLOGY NO: PAGE 1 Signed ReportGLYCOSYLATED HEMOGLOBIN [id number] 07:52:00 Test Item Value Reference Range Interpretation Comments GLYCOSYLATED 7.2 % 4.8-5.9 H Any condition t hat HEMOGLOBIN (HA1C) shortens e rythocyte (test code = survival or dec reasesmean GLYHGB) erythrocyte age (e.g., recovery from a cute blood loss,hemolytic anemia) will falsely lo wer HGBA1c resultsregardle ss of the method used. H GBA1c results from raji laurent HbSS, HbCC, and HbSc must be interpreted with cautiongiven th e pathological pr ocesses, including anemia,increase d red cell turnover, trans fusion requirements, thatadversely i mpact HGBA1c as a mar ker of long-term glycemiccontrol . Alternative for ms of testing such as fructosaminesho uld be considered for these patients. MEAN BLOOD GLUCOSE 160 MG/DL 70-110 H (test code = MBG) CBC W/AUTO [id number] 06:02:00 Test Item Value Reference Range Interpretation Comments WHITE BLOOD CELL (test 19.1 K/MM3 3.8-9.8 H code = WBC) RED BLOOD CELL (test 5.71 M/MM3 3.95-5.67 H code = RBC) HEMOGLOBIN (test code 16.9 G/DL 12.4-16.7 H = HGB) HEMATOCRIT (test code 55.5 % 35.9-49.5 HH CALLED TO Lala ARELLANO = HCT) & READBACK ON 04/11/21 AT 060 0 BY Ryan Crawford MEAN CELL VOLUME (test 97 fL 81.7-96.1 H code = MCV) MEAN CELL HGB (test 29.6 pg 27.6-33.2 N code = MCH) MEAN CELL HGB 30.5 % 32.9-35.5 L CONCETRATION (test code = MCHC) RED CELL DISTRIBUTION 17.9 % 12.1-15.2 H WIDTH (test code = RDW) PLATELET COUNT (test 201 K/MM3 129-368 N code = PLT) MEAN PLATELET VOLUME 9.6 fl 7.4-10.4 N (test code = MPV) NEUTROPHIL % (test 88.3 % 43-75 H code = NT%) IMMATURE GRANULOCYTE % 1.6 % 0.0-2.0 N (test code = IG%) LYMPHOCYTE % (test 6.9 % 14-44 L code = LY%) MONOCYTE % (test code 2.7 % 4-13 L = MO%) EOSINOPHIL % (test 0.1 % 0-6 N code = EO%) BASOPHIL % (test code 0.4 % 0-2 N = BA%) NUCLEATED RBC % (test 0.0 % 0-1.0 N code = NRBC%) NEUTROPHIL # (test 16.86 K/mm3 2.0-7.6 H code = NT#) IMMATURE GRANULOCYTE # 0.30 x10 3/uL 0-0.03 H (test code = IG#) LYMPHOCYTE # (test 1.32 K/mm3 1.0-3.8 N code = LY#) MONOCYTE # (test code 0.52 K/mm3 0.1-0.8 N = MO#) EOSINOPHIL # (test 0.01 K/mm3 0.0-0.2 N code = EO#) BASOPHIL # (test code 0.07 K/mm3 0.0-0.2 N = BA#) NUCLEATED RBC # (test 0.00 K/mm3 0.0-0.1 N code = NRBC#) COMPREHENSIVE METABOLIC [id number] 05:55:00 Test Item Value Reference Range Interpretation Comments SODIUM (test code 140 MMOL/L 137-145 N = NA) POTASSIUM (test 5.9 MMOL/L 3.5-5.1 H GOOD SAMPLE. code = K) CHLORIDE (test 100 MMOL/L 98-107 N code = CL) CARBON DIOXIDE 19 MMOL/L 22-30 L (test code = CO2) ANION GAP (test 27 MMOL/L 14-24 H code = GAP) GLUCOSE (test 272 MG/DL 74-106 H code = GLU) BLOOD UREA 49 MG/DL 9-20 H NITROGEN (test code = BUN) GLOMERULAR 8 Reporting units : FILTRATION RATE ml/min/1.73 m2 (Modified (test code = GFR) MDRD Formu la)Reference Range: > or = 6 0 ml/min/1.73 m2 CREATININE (test 6.90 MG/DL 0.66-1.25 H code = CREAT) TOTAL PROTEIN 8.9 G/DL 6.2-7.6 H [facility] Clinical Diagnostic (test code = has made us miryam re of PROT) newinformation regarding the potential i nterference ofEltrombopag (a bone marrow stimulan t used to treatthrombocyt onmenia and aplastic anemia ) with specific assays on the Vitros 5600 of which Total Protein is one of thoseassays per formed in our lab.Interfe rence testing perform ed at Ortho determined that Eltrombopag does interfere with Vitros Total Protein asfollowsEltrom bopag Interference fo r Vitros Product Total Protein:======= Eltrombopag Max Observed A vg. BiasConcentrati on Concentration Concentration== ==== 2.5 mg/dl 6.0 g/dl +0.41 +0.34 3.5 mg/dl 6.0 g/dl +0.50 +0.45 5 mg/dl 6.0 g/dl +0.73 +0.65 2.5 mg/dl 8.0 g/dl +0.44 +0.41 3.5 mg/dl 8.0 g/dl +0.55 +0.52 5 mg/dl 8.0 g/dl +0.86 +0.77 ALBUMIN (test 4.9 G/DL 3.5-5.0 N code = ALB) CALCIUM (test 9.9 MG/DL 8.4-10.2 N code = CA) BILIRUBIN TOTAL 0.8 MG/DL 0.2-1.3 N Eltrombopag Interference (test code = for Vitros Prod uct TBil, BILT) BuBc: Assa y Eltrombopag Analyte/ Max Observed Avg. Bias Concentrati on Concentration Concentration== ====TBil 7mg/dl T Mumtaz/ 1.2mg/dl +0.23 mg.dl +0.20mg/dlBuBc 3.5mg/dl Bu/0.8mg/dl +0.25mg/dl +0 .24mg/dlBuBc 7 mg/dl Bu/14.2mg/dl +0.38mg/dl +0.25mg/dlBuBc 5mg/dl Bc/0mg/dl +0.25mg/dl +0 .15mg/dlBuBc 3.5mg/dl Bc/2.8mg/dl +0.25mg/dl +0.23mg/dl SGOT/AST (test 145 UNITS/L 17-59 H code = AST) SGPT/ALT (test 41 UNITS/L 0-49 N code = ALT) ALKALINE 170 UNITS/L 38-126 H PHOSPHATASE (test code = ALKP) LIPID PROFILE (CORONARY RISK)2021-04-11 05:55:00 Test Item Value Reference Range Interpretation Comments TRIGLYCERIDES (test 174 MG/DL TRIGLYCE RIDES code = TRIG) REFERENCE RANGE:Normal: < 150 mg/dLBorderline High: 150-199 mg/dLHi gh: 200-499 mg/dLVe ry High: >=500 mg/ dL CHOLESTEROL (test code 158 MG/DL <200 = CHOL) HDL CHOLESTEROL (test 47 MG/DL 40-59 N code = HDL) LIPOPROTEIN LDL (test 62 MG/DL 0-99 N code = LDL) OPTIMAL........ .<100 mg/dLNEAR OPTIMAL/ABOVE OPTIMAL........ .100-12 9 mg/dL BORDERLINE HIGH.........13 0-159 mg/dL HIGH.........16 0-189 mg/dL VERY HIGH...... ...>/= 190 mg/dL [id number] 05:55:00 Test Item Value Reference Range Interpretation Comments PHOSPHOROUS (test code = PHOS) 8.2 MG/DL 2.5-4.5 H [id number] 05:55:00 Test Item Value Reference Range Interpretation Comments MAGNESIUM (test code = MAG) 2.3 MG/DL 1.6-2.3 N ARTERIAL BLOOD [id number] 05:47:00 Test Item Value Reference Range Interpretation Comments ARTERIAL BLOOD GAS 7.29 mmHg 7.35-7.45 L PH (test code = PHA) ARTERIAL BLOOD GAS 35.7 mmHg 35.0-45.0 N PCO2 (test code = PCO2A) ARTERIAL BLOOD GAS 119.9 mmol/L 80.0-100.0 H PO2 (test code = PO2A) BICARBONATE TOTAL 16.8 mmol/L 20.0-26.0 L HCO3 (test code = HCO3) BASE EXCESS (test -8.8 mmol/L -3.0-3.0 L code = RANGEL) ABG O2 SATURATION 98.0 % 95.0-100.0 N All critic al values (test code = SATA) report to and readback by Hilary arguelles by KATHRYN at 03/24 2:09:37 AM ABG DELIVERY (test BIPAP code = MARTHA) ABG VENT RESP RATE 12.0 /MIN (test code = RRA) ABG PEEP (test code 10.0 cmH2O = PEEPA) ABG TEMPERATURE 37.0 C See_Comment [Automated message] (test code = TEMPA) The RE2 em which generated this result transmitted ref erence range: 37. The reference range was not used to int erpret this result as normal/abnormal . ABG SITE (test code LR = SITEA) ALLENS TEST (test Y CHECK code = ALLENS) FIO2 (test code = 50 % COHBGFFIO2) PaO2/[id number] 05:47:00 Test Item Value Reference Range Interpretation Comments PaO2/FiO2 (test code = EON2JWN1) 239.80 mm/Hg COMPREHENSIVE METABOLIC [id number] 05:46:00 Test Item Value Reference Range Interpretation Comments SODIUM (test code 140 MMOL/L 137-145 N = NA) POTASSIUM (test 5.9 MMOL/L 3.5-5.1 H GOOD SAMPLE. code = K) CHLORIDE (test 100 MMOL/L 98-107 N code = CL) CARBON DIOXIDE 19 MMOL/L 22-30 L (test code = CO2) ANION GAP (test 27 MMOL/L 14-24 H code = GAP) GLUCOSE (test 272 MG/DL 74-106 H code = GLU) BLOOD UREA 49 MG/DL 9-20 H NITROGEN (test code = BUN) GLOMERULAR 8 Reporting units : FILTRATION RATE ml/min/1.73 m2 (Modified (test code = GFR) MDRD Formu la)Reference Range: > or = 6 0 ml/min/1.73 m2 CREATININE (test 6.90 MG/DL 0.66-1.25 H code = CREAT) TOTAL PROTEIN 8.9 G/DL 6.2-7.6 H [facility] Clinical Diagnostic (test code = has made us miryam re of PROT) newinformation regarding the potential i nterference ofEltrombopag (a bone marrow stimulan t used to treatthrombocyt onmenia and aplastic anemia ) with specific assays on the Vitros 5600 of which Total Protein is one of thoseassays per formed in our lab.Interfe rence testing perform ed at Ortho determined that Eltrombopag does interfere with Vitros Total Protein asfollowsEltrom bopag Interference fo r Vitros Product Total Protein:======= Eltrombopag Max Observed A vg. BiasConcentrati on Concentration Concentration== ==== 2.5 mg/dl 6.0 g/dl +0.41 +0.34 3.5 mg/dl 6.0 g/dl +0.50 +0.45 5 mg/dl 6.0 g/dl +0.73 +0.65 2.5 mg/dl 8.0 g/dl +0.44 +0.41 3.5 mg/dl 8.0 g/dl +0.55 +0.52 5 mg/dl 8.0 g/dl +0.86 +0.77 ALBUMIN (test 4.9 G/DL 3.5-5.0 N code = ALB) CALCIUM (test 9.9 MG/DL 8.4-10.2 N code = CA) BILIRUBIN TOTAL 0.8 MG/DL 0.2-1.3 N Eltrombopag Interference (test code = for Vitros Prod uct TBil, BILT) BuBc: Assa y Eltrombopag Analyte/ Max Observed Avg. Bias Concentrati on Concentration Concentration== ====TBil 7mg/dl T Mumtaz/ 1.2mg/dl +0.23 mg.dl +0.20mg/dlBuBc 3.5mg/dl Bu/0.8mg/dl +0.25mg/dl +0 .24mg/dlBuBc 7 mg/dl Bu/14.2mg/dl +0.38mg/dl +0.25mg/dlBuBc 5mg/dl Bc/0mg/dl +0.25mg/dl +0 .15mg/dlBuBc 3.5mg/dl Bc/2.8mg/dl +0.25mg/dl +0.23mg/dl SGOT/AST (test 145 UNITS/L 17-59 H code = AST) SGPT/ALT (test 41 UNITS/L 0-49 N code = ALT) ALKALINE 170 UNITS/L 38-126 H PHOSPHATASE (test code = ALKP) LIPID PROFILE (CORONARY RISK)2021-04-11 05:46:00 Test Item Value Reference Range Interpretation Comments TRIGLYCERIDES (test 174 MG/DL TRIGLYCE RIDES code = TRIG) REFERENCE RANGE:Normal: < 150 mg/dLBorderline High: 150-199 mg/dLHi gh: 200-499 mg/dLVe ry High: >=500 mg/ dL CHOLESTEROL (test code 158 MG/DL <200 = CHOL) HDL CHOLESTEROL (test 47 MG/DL 40-59 N code = HDL) LIPOPROTEIN LDL (test MG/DL 0-99 code = LDL) [id number] 05:46:00 Test Item Value Reference Range Interpretation Comments PHOSPHOROUS (test code = PHOS) 8.2 MG/DL 2.5-4.5 H [id number] 05:46:00 Test Item Value Reference Range Interpretation Comments MAGNESIUM (test code = MAG) 2.3 MG/DL 1.6-2.3 N ARTERIAL BLOOD [id number] 05:46:00 Test Item Value Reference Range Interpretation Comments ARTERIAL BLOOD GAS 7.29 mmHg 7.35-7.45 L PH (test code = PHA) ARTERIAL BLOOD GAS 35.7 mmHg 35.0-45.0 N PCO2 (test code = PCO2A) ARTERIAL BLOOD GAS 119.9 mmol/L 80.0-100.0 H PO2 (test code = PO2A) BICARBONATE TOTAL 16.8 mmol/L 20.0-26.0 L HCO3 (test code = HCO3) BASE EXCESS (test -8.8 mmol/L -3.0-3.0 L code = RANGEL) ABG O2 SATURATION 98.0 % 95.0-100.0 N All critic al values (test code = SATA) report to and readback by Hliary arguelles by KATHRYN at 03/24 2:09:37 AM ABG DELIVERY (test BIPAP code = MARTHA) ABG VENT RESP RATE 12.0 /MIN (test code = RRA) ABG PEEP (test code 10.0 cmH2O = PEEPA) ABG TEMPERATURE 37.0 C See_Comment [Automated message] (test code = TEMPA) The RE2 em which generated this result transmitted ref erence range: 37. The reference range was not used to int erpret this result as normal/abnormal . ABG SITE (test code LR = SITEA) ALLENS TEST (test Y CHECK code = ALLENS) FIO2 (test code = 50 % COHBGFFIO2) PaO2/[id number] 05:46:00 Test Item Value Reference Range Interpretation Comments PaO2/FiO2 (test code = BAD0GTH6) mm/Hg LIPOPROTEIN LDL [id number] 03:49:00 Test Item Value Reference Range Interpretation Comments LIPOPROTEIN LDL DIRECT 59 mg/dL 100-129 L ===== (test code = LDLDIR) ======= ==Refe rence Interval: mg/dL mmol/L--------- ------ ------ ------ --Optimal <100 <2.6Near/abov e optimal 100-129 2.6-3.3Borderli ne High 130-159 3.4-4.1High 16 0-189 4.1-4.9Ve ry High >=190 >=4.9========= This LDL result is a direct measurement.=== ====== [id number] 03:49:00 Test Item Value Reference Range Interpretation Comments TROPONIN-I (test 17.400 NG/ML 0.012-0.033 HH CALLED TO [employer].& code = TROPI) READBACK ON AT 0331 BY Miguel Gan LIPOPROTEIN LDL [id number] 03:31:00 Test Item Value Reference Range Interpretation Comments LIPOPROTEIN LDL DIRECT (test code = mg/dL 100-129 LDLDIR) [id number] 03:31:00 Test Item Value Reference Range Interpretation Comments TROPONIN-I (test 17.400 NG/ML 0.012-0.033 HH CALLED TO [employer].& code = TROPI) READBACK ON AT 0331 BY Miguel Gan GLUCOSE BEDSIDE [id number] 15:07:00 Test Item Value Reference Range Interpretation Comments GLUCOSE BEDSIDE TESTING 140 MG/DL 60-99 H Doct or Notified~ (test code = GLUBED) GLUCOSE BEDSIDE [id number] 13:43:00 Test Item Value Reference Range Interpretation Comments GLUCOSE BEDSIDE TESTING (test code 269 MG/DL 60-99 H = GLUBED) GLUCOSE BEDSIDE [id number] 13:21:00 Test Item Value Reference Range Interpretation Comments GLUCOSE BEDSIDE TESTING (test code 291 MG/DL 60-99 H = GLUBED) GLUCOSE BEDSIDE [id number] 12:15:00 Test Item Value Reference Range Interpretation Comments GLUCOSE BEDSIDE TESTING (test code 340 MG/DL 60-99 HH = GLUBED) GLUCOSE BEDSIDE [id number] 11:23:00 Test Item Value Reference Range Interpretation Comments GLUCOSE BEDSIDE TESTING (test code 394 MG/DL 60-99 HH = GLUBED) GLUCOSE BEDSIDE [id number] 10:43:00 Test Item Value Reference Range Interpretation Comments GLUCOSE BEDSIDE TESTING 407 MG/DL 60-99 HH Doct or Notified~ (test code = GLUBED) BASIC METABOLIC [id number] 10:36:00 Test Item Value Reference Range Interpretation [...] code = 9.2 MG/DL 8.4-10.2 N CA) [id number] 10:36:00 Test Item Value Reference Range Interpretation Comments MAGNESIUM (test code = MAG) 2.3 MG/DL 1.6-2.3 N BASIC METABOLIC [id number] 10:30:00 Test Item Value Reference Range Interpretation [...] CALCIUM (test code = CA) MG/DL 8.7-9.7 [id number] 10:30:00 Test Item Value Reference Range Interpretation Comments MAGNESIUM (test code = MAG) MG/DL 1.6-2.3 BASIC METABOLIC [id number] 10:29:00 Test Item Value Reference Range Interpretation [...] CALCIUM (test code = CA) MG/DL 8.7-9.7 [id number] 10:29:00 Test Item Value Reference Range Interpretation Comments MAGNESIUM (test code = MAG) MG/DL 1.6-2.3 PROTHROMBIN [id number] 10:25:00 Test Item Value Reference Range Interpretation [...] syste lars embolism. 3.0 - 4.5 PTT [id number] 10:25:00 Test Item Value Reference Range Interpretation Comments PTT ACTIVATED (test code = APTT) 32.6 SECONDS 25.1-36.5 N CBC W/AUTO [id number] 10:13:00 Test Item Value Reference Range Interpretation [...] 0.0-0.1 N NRBC#) COVID 19 Asymptomatic IH [id number] 09:19:00 Test Item Value Reference Range Interpretation [...] amount of virus (antigen) in the sample." [id number] 13:30:00 Test Item Value Reference Range Interpretation Comments GLUBED (test code = 179 mg/dL 74-106 H Performe d by certified GLUBED) multiple cut off saw operator at [id number] 06:14:00 Test Item Value Reference Range Interpretation Comments GLUBED (test code = 139 mg/dL 74-106 H Performe d by certified GLUBED) multiple cut off saw operator at [facility] [id number] 04:42:00 Test Item Value Reference Range Interpretation Comments GLUBED (test code = 166 mg/dL 74-106 H Performe d by certified GLUBED) multiple cut off saw operator at [facility] [id number] 21:05:00 Test Item Value Reference Range Interpretation Comments GLUBED (test code = 311 mg/dL 74-106 H Performe d by certified GLUBED) multiple cut off saw operator at [facility] [id number] 17:31:00 Test Item Value Reference Range Interpretation Comments GLUBED (test code = 200 mg/dL 74-106 H Performe d by certified GLUBED) multiple cut off saw operator at [facility] [id number] 12:34:00 Test Item Value Reference Range Interpretation Comments GLUBED (test code = 225 mg/dL 74-106 H Performe d by certified GLUBED) multiple cut off saw operator at [facility] BASIC METABOLIC [id number] 07:17:00 Test Item Value Reference Range Interpretation [...] code = 8.8 mg/dL 8.5-10.1 N CA) [id number] 05:08:00 Test Item Value Reference Range Interpretation Comments GLUBED (test code = 146 mg/dL 74-106 H Performe d by certified GLUBED) multiple cut off saw operator at [facility] BASIC METABOLIC [id number] 03:11:00 Test Item Value Reference Range Interpretation [...] code = 8.7 mg/dL 8.5-10.1 N CA) [id number] 03:11:00 Test Item Value Reference Range Interpretation Comments MAGNESIUM (test code = MAG) 2.0 mg/dL 1.8-2.4 N CBC W/O [id number] 03:02:00 Test Item Value Reference Range Interpretation [...] code 8.8 fL 6.7-11.0 N = MPV) [id number] 21:06:00 Test Item Value Reference Range Interpretation Comments GLUBED (test code = 283 mg/dL 74-106 H Performe d by certified GLUBED) multiple cut off saw operator at [facility] [id number] 18:12:00 Test Item Value Reference Range Interpretation Comments GLUBED (test code = 207 mg/dL 74-106 H Performe d by certified GLUBED) multiple cut off saw operator at [facility] [id number] 12:02:00 Test Item Value Reference Range Interpretation Comments GLUBED (test code = 220 mg/dL 74-106 H Performe d by certified GLUBED) multiple cut off saw operator at [facility] [id number] 06:47:00 Test Item Value Reference Range Interpretation Comments GLUBED (test code 142 mg/dL 74-106 H Performed by certified = GLUBED) [facility]~ [id number] 06:29:00 Test Item Value Reference Range Interpretation Comments GLUBED (test code 212 mg/dL 74-106 H Performed by certified = GLUBED) [facility]~ BASIC METABOLIC [id number] 02:36:00 Test Item Value Reference Range Interpretation [...] code = 8.7 mg/dL 8.5-10.1 N CA) [id number] 02:36:00 Test Item Value Reference Range Interpretation Comments MAGNESIUM (test code = MAG) 2.0 mg/dL 1.8-2.4 N BASIC METABOLIC [id number] 02:21:00 Test Item Value Reference Range Interpretation [...] CALCIUM (test code = CA) mg/dL 8.5-10.1 [id number] 02:21:00 Test Item Value Reference Range Interpretation Comments MAGNESIUM (test code = MAG) mg/dL 1.8-2.4 CBC W/O [id number] 01:44:00 Test Item Value Reference Range Interpretation [...] fL 6.7-11.0 N (test code = MPV) [id number] 17:37:00 Test Item Value Reference Range Interpretation Comments GLUBED (test code = 274 mg/dL 74-106 H Performe d by certified GLUBED) multiple cut off saw operator at [facility] [id number] 12:37:00 Test Item Value Reference Range Interpretation Comments GLUBED (test code = 187 mg/dL 74-106 H Performe d by certified GLUBED) multiple cut off saw operator at [facility] [id number] 11:42:00 Test Item Value Reference Range Interpretation Comments GLUBED (test code = 188 mg/dL 74-106 H Performe d by certified GLUBED) multiple cut off saw operator at [facility] - XR CHEST 1 [id number] 09:18:00 FAX: Reji Hernandez MD [place]: St: [facility] FAX: Asmita David NP [phone] Name: JAROD YU [facility] : 1955 Age/S: 63/M [address] [facility] Unit #: [id number] Loc: V.2058 [place] [address] Phys: Asmita David NP Acct: V [id number] Dis Date: Status: ADM IN PHONE #: [phone] Exam Date: 06/16/2019 0858 FAX #: [phone] Reason: CHF EXAMS: CPT CODE: [id number] XR CHEST 1 V 74753 HISTORY: CHF. COMPARISON: Previous day. Left ICD is unchanged. Mild congestion. Smallbasilar effusions. Dependent changes. Small basilar effusions. Dependent changes. Cardiomegaly. IMPRESSION: Mild congestion is unchanged. at 0918 Reported and signed by: Anjum Helton M.D. CC: Reji Hernandez MD; Asmita David NP Technologist: ALETA MUHAMMAD JR Trnscrd Date/Time/By: 06/16/2019 (917) :By: [email or web address] Orig Print D/T: S: 06/16/2019 (21) PAGE 1 Signed ReportBASIC METABOLIC [id number] 08:56:00 Test Item Value Reference Range Interpretation [...] code = 8.5 mg/dL 8.5-10.1 N CA) [id number] 08:56:00 Test Item Value Reference Range Interpretation Comments MAGNESIUM (test code = MAG) 2.1 mg/dL 1.8-2.4 N CBC W/AUTO [id number] 08:44:00 Test Item Value Reference Range Interpretation [...] code = 0.00 K/mm3 0.0-0.1 N NRBC#) [id number] 08:27:00 Test Item Value Reference Range Interpretation Comments GLYCOSYLATED HEMOGLOBIN (HA1C) 9.7 % HbA1 4.8-6.0 H (test code = GLYHGB) ESTIMATED AVERAGE GLUCOSE (test 232 MG/DL code = EAG) [id number] 06:14:00 Test Item Value Reference Range Interpretation Comments GLUBED (test code = 134 mg/dL 74-106 H Performe d by certified GLUBED) multiple 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 off saw operator at [facility] [id number] 04:22:00 Test Item Value Reference Range Interpretation Comments GLUBED (test code = 146 mg/dL 74-106 H Performe d by certified GLUBED) multiple cut off saw operator at [facility] [id number] 21:25:00 Test Item Value Reference Range Interpretation Comments GLUBED (test code = 179 mg/dL 74-106 H Performe d by certified GLUBED) multiple cut off saw operator at [facility] UR MICROALBUMIN/CREAT [id number] 17:08:00 Test Item Value Reference Range Interpretation [...] - 300.0 Clinical albuminuria: >300.0Performed At: [facility] [address] [place], [place] [id number] Preston Reynolds MD Ph:[phone] [facility] [id number] 16:47:00 Test Item Value Reference Range Interpretation Comments GLUBED (test code = 173 mg/dL 74-106 H Performe d by certified GLUBED) multiple cut off saw operator at [facility] [id number] 10:07:00 Test Item Value Reference Range Interpretation Comments GLUBED (test code = 151 mg/dL 74-106 H Performe d by certified GLUBED) multiple cut off saw operator at [facility] [id number] 07:12:00 Test Item Value Reference Range Interpretation Comments TROPONIN-I (test code = TROPI) 2.350 ng/mL 0-0.045 COMMENTS TO TRAY CHECKER: COLLECT 3 HOURS AFTER PREVIOUS SAMPLE- XR CHEST 1 [id number] 06:25:00 FAX: Piter Collins [phone] [place]: B St: ADM FAX: Reji Hernandez Name: JAROD YU [facility] : 1955 Age/S: 63/M [address] [facility] Unit #: [id number] Loc: Germaine6 [place] [address] Phys: Piter Collins Acct: V [id number] Dis Date: Status: ADM IN PHONE #: [phone] Exam Date: 06/15/2019 0511 FAX #: [phone] Reason: updatedpulm view EXAMS: CPT CODE: [id number] XR CHEST 1 V 23064 CLINICAL HISTORY: Respiratory failure, CHF TECHNIQUE: AP chest x-ray COMPARISON: Previous day. IMPRESSION: Slightly worse bilateral airspace opacification and small pleural effusions. Cardiomegaly. AICD/biventricular pacer. LOCATION: at 0667 Reported and signed by: Eliz Ocampo D.O. CC: Piter Collins; Reji Hernandez MD Technologist: ALETA Bryan Trnscrd Date/Time/By: 06/15/2019 (624) : By: [email or web address] Orig Print D/T: S: 06/15/2019 (77) PAGE 1 Signed ReportPROCALCITONIN (PCT)2019-06-15 06:18:00 Test [...] evere Sepsis or Septi c or higher Sho k. *Inc reased PCT levels may not always be relat ed to systemic bacter ial infection.*Low PCT levels do not automatically e xclude the presence of bacterial infection.*All results should be inter preted taking into acc ount the patients h istory. COMPREHENSIVE METABOLIC [id number] 06:07:00 Test Item Value Reference Range Interpretation [...] range due ALKP) to change in reagent. [id number] 06:07:00 Test Item Value Reference Range Interpretation Comments MAGNESIUM (test code = MAG) 2.2 mg/dL 1.8-2.4 N [id number] 05:29:00 Test Item Value Reference Range Interpretation Comments GLUBED (test code = 180 mg/dL 74-106 H Performe d by certified GLUBED) multiple cut off saw operator at [facility] CBC W/AUTO [id number] 05:09:00 Test Item Value Reference Range Interpretation [...] code = 0.00 K/mm3 0.0-0.1 N NRBC#) [id number] 21:16:00 Test Item Value Reference Range Interpretation Comments GLUBED (test code = 186 mg/dL 74-106 H Performe d by certified GLUBED) multiple cut off saw operator at [facility] [id number] 16:21:00 Test Item Value Reference Range Interpretation Comments GLUBED (test code = 229 mg/dL 74-106 H Performe d by certified GLUBED) multiple cut off saw operator at [facility] UR SMEAR EOSINOPHIL [id number] 16:03:00 Test Item Value Reference Range Interpretation Comments UR SMEAR EOSINOPHIL COUNT NONE SEEN per HPF NONE SEEN (test code = EOSCTU) UR NA,[id number] 16:03:00 Test Item Value Reference Range Interpretation Comments UR NA,RANDOM (test code = NOEMÍ) 113 mmol/L 20-110 H UR CHLORIDE [id number] 16:03:00 Test Item Value Reference Range Interpretation Comments UR CHLORIDE RANDOM (test code = 118 mEq/L CLU) UR PROTEIN/CREATININE [id number] 16:03:00 Test Item Value Reference Range Interpretation [...] (test code = P/CRATIO) UR SMEAR EOSINOPHIL [id number] 15:08:00 Test Item Value Reference Range Interpretation Comments UR SMEAR EOSINOPHIL COUNT (test code per HPF NONE SEEN = EOSCTU) UR NA,[id number] 15:08:00 Test Item Value Reference Range Interpretation Comments UR NA,RANDOM (test code = NOEMÍ) 113 mmol/L 20-110 H UR CHLORIDE [id number] 15:08:00 Test Item Value Reference Range Interpretation Comments UR CHLORIDE RANDOM (test code = 118 mEq/L CLU) UR PROTEIN/CREATININE [id number] 15:08:00 Test Item Value Reference Range Interpretation [...] (test code = P/CRATIO) UR SMEAR EOSINOPHIL [id number] 14:58:00 Test Item Value Reference Range Interpretation Comments UR SMEAR EOSINOPHIL COUNT (test code per HPF NONE SEEN = EOSCTU) UR NA,[id number] 14:58:00 Test Item Value Reference Range Interpretation Comments UR NA,RANDOM (test code = NOEMÍ) 113 mmol/L 20-110 H UR CHLORIDE [id number] 14:58:00 Test Item Value Reference Range Interpretation Comments UR CHLORIDE RANDOM (test code = 118 mEq/L CLU) UR PROTEIN/CREATININE [id number] 14:58:00 Test Item Value Reference Range Interpretation Comments UR PROTEIN RANDOM (test code = PROTU) mg/dL 0.0-11.9 UR CREATININE RANDOM (test code = mg/dL 30-125 CREATU) PROTEIN/CREATININE RATIO (test code = RATIO 0.0-0.20 P/CRATIO) [id number] 13:09:00 Test Item Value Reference Range Interpretation Comments GLUBED (test code = 214 mg/dL 74-106 H Performe d by certified GLUBED) multiple cut off saw operator at [facility] URINALYSIS [id number] 11:40:00 Test Item Value Reference Range Interpretation [...] 0-5 code = HYALU) Urine Source? Clean [id number] 11:38:00 Test Item Value Reference Range Interpretation Comments GLUBED (test code = 203 mg/dL 74-106 H Performe d by certified GLUBED) multiple cut off saw operator at [facility] URINALYSIS [id number] 11:35:00 Test Item Value Reference Range Interpretation [...] per HPF NONE BACU) Urine Source? Clean [id number] 07:40:00 Test Item Value Reference Range Interpretation Comments TROPONIN-I (test code = TROPI) 1.380 ng/mL 0-0.045 HH SPECIMEN COMMENTS: 0200 LAB- XR CHEST 1 [id number] 07:30:00 FAX: Piter Collins [phone] [place]: B St: ADM FAX: Reji Hernandez Name: JAROD YU [facility] : 1955 Age/S: 63/M [address] Unit #: [id number] Loc: V.S06 [place] [address] Phys: Piter Collins Acct: V [id number] Dis Date: Status: ADM IN PHONE #: [phone] Exam Date: 06/14/2019 0649 FAX #: [phone] Reason: updatedpulm view. EXAMS: CPT CODE: [id number] XR CHEST 1 V 35196 CLINICAL HISTORY: Respiratory failure, CHF TECHNIQUE: AP chest x-ray COMPARISON: Previous day. IMPRESSION: Improved patchy bilateral airspace opacification or pulmonary congestion. Small bilateral pleural effusions. Cardiomegaly. AICD/biv entricular pacer. LOCATION: at 0730 Reported and signed by: Eliz Ocampo D.O. CC: Piter Collins; Reji Hernandez MD Technologist: Chanell Anderson(Eric) Trnscrd Date/Time/By: 06/14/2019 (07) : By: [email or web address] Orig Print D/T: S: 06/14/2019 (9556) PAGE 1 Signed ReportBASIC METABOLIC [id number] 03:27:00 Test Item Value Reference Range Interpretation [...] CALCIUM (test code = CA) mg/dL 8.5-10.1 [id number] 03:27:00 Test Item Value Reference Range Interpretation Comments MAGNESIUM (test code = MAG) mg/dL 1.8-2.4 BASIC METABOLIC [id number] 03:27:00 Test Item Value Reference Range Interpretation [...] code = 7.3 mg/dL 8.5-10.1 L CA) [id number] 03:27:00 Test Item Value Reference Range Interpretation Comments MAGNESIUM (test code = MAG) 2.0 mg/dL 1.8-2.4 N CBC W/O [id number] 03:06:00 Test Item Value Reference Range Interpretation [...] code 8.8 fL 6.7-11.0 N = MPV) [id number] 00:03:00 Test Item Value Reference Range Interpretation Comments TROPONIN-I (test 1.480 ng/mL 0-0.045 HH RESULT VERI FIED BY code = TROPI) REPEAT ANALYSI S COMMENTS TO TRAY CHECKER: COLLECT 3 HOURS AFTER PREVIOUS SAMPLE- US RETRO [id number] 18:28:00 [facility] 1955 Age[facility]S: 63 / M [address] [facility]: [id number] Loc: [place] [address] Phys: Reji Hernandez MD Acct: [id number] Dis Date: Status: ADM IN PHONE #: [phone] Exam Date: 06/13/2019 1703 FAX #: [phone] Reason: ckd EXAMS: CPTCODE: [id number] US RETRO LTD 89604 REASON FOR EXAM: ckd EXAM ORDER DATE: [...] Left kidney is within normal limits. Location: [facility] at 1828 Reported and signed by: Yoandy Calero MD PAGE 1 Signed Report (CONTINUED) Name: JAROD YU [facility] : 1955 Age/S: 63 / M [address] [facility] Unit #: [id number] Loc: [place] [address] Phys: Reji Hernandez MD Acct: [id number] Dis Date: Status: ADM IN PHONE #: [phone] Exam Date: 06/13/2019 1703 FAX #: [phone] Reason: ckd EXAMS: CPT CODE: [id number] [facility] [address] <Continued> CC: Krystina Kowalski MD; Reji Hernandez MD T echnologist: Ladi Ruiz RDMS [facility] Date/Time: 06/13/2019 (1827) [email or web address] Orig Print D/T: S: 06/13/2019 (657) Probe: PAGE 2 Signed Report PROTHROMBIN [id number] 14:57:00 Test Item Value Reference Range Interpretation [...] (2.5-3.5) IS PATIENT ON ANTICOAGULANTS? NTHROMBOPLASTIN TIME [id number] 14:57:00 Test Item Value Reference Range Interpretation Comments THROMBOPLASTIN TIME PARTIAL 47.3 seconds 25.0-36.5 H (test code = PTT) IS PATIENT ON ANTICOAGULANTS? [id number] 14:57:00 Test Item Value Reference Range Interpretation Comments D-DIMER (test 23628.00 0-500 HH RESULT VERIFIE D BY REPEAT [...] - IS PATIENT ON ANTICOAGULANTS? NB-TYPE NATRIURETIC [id number] 14:38:00 Test Item Value Reference Range Interpretation Comments B-TYPE NATRIURETIC PEPTIDE 1317.60 pgram/mL 0-100 H (test code = BNP) BASIC METABOLIC [id number] 14:36:00 Test Item Value Reference Range Interpretation [...] 8.6 mg/dL 8.5-10.1 N CA) HEPATIC FUNCTION [id number] 14:36:00 Test Item Value Reference Range Interpretation [...] code = 105 IUnit/L 26-208 N CK) [id number] 14:36:00 Test Item Value Reference Range Interpretation Comments LIPASE (test code = LIP) 241 U/L 73.0-393.0 N [id number] 14:36:00 Test Item Value Reference Range Interpretation Comments MAGNESIUM (test code = MAG) 2.3 mg/dL 1.8-2.4 N [id number] 14:36:00 Test Item Value Reference Range Interpretation Comments TROPONIN-I (test 1.890 ng/mL 0-0.045 HH Results ilda led to code = TROPI) [id number] by Azeem NOE 06/13/19 1433Cr itical results verifie d and read back by Angie rse? Y LACTIC [id number] 14:27:00 Test Item Value Reference Range Interpretation Comments LACTIC ACID (test code = LACT) 0.9 mmol/L 0.4-1.9 N BASIC METABOLIC [id number] 14:16:00 Test Item Value Reference Range Interpretation [...] code = CA) mg/dL 8.5-10.1 HEPATIC FUNCTION [id number] 14:16:00 Test Item Value Reference Range Interpretation [...] (CK) (test code = IUnit/L 26-208 CK) [id number] 14:16:00 Test Item Value Reference Range Interpretation Comments LIPASE (test code = LIP) U/L 73.0-393.0 [id number] 14:16:00 Test Item Value Reference Range Interpretation Comments MAGNESIUM (test code = MAG) mg/dL 1.8-2.4 [id number] 14:16:00 Test Item Value Reference Range Interpretation Comments TROPONIN-I (test code = TROPI) ng/mL 0-0.045 CBC W/AUTO [id number] 14:10:00 Test Item Value Reference Range Interpretation [...] 0.0-0.1 N NRBC#) - XR CHEST 1 [id number] 14:01:00 FAX: Krystina Banda [phone] [place]: St: PRE Name: JAROD YU [facility] : 1955 Age/S: 63/M [address] [facility] Unit#: [id number] Loc: [place] [address] Phys: Krystina Kowalski MD Acct: [id number] Dis Date: Status: PRE ER PHONE #: [phone] Exam Date: 06/13/2019 1350 FAX #: [phone] Reason: SHORTNESS OF BREATH EXAMS: CPT CODE: [id number] XR CHEST 1 V 09680 HISTORY: Shortness of breath. COMPARISON: None available. Left ICD with the leads in the right atrium and right ventricle patchy right infiltrate. Left basal infiltrate as well. Dependent changes. No effusion. Cardiomegaly. IMPRESSION: Patchy bilateral infiltrates, greater on the right. at 1401 Reported and signed by: Anjum Helton M.D. CC: Krystina Kowalski MD Technologist: RT LATONYA(R) Trnscrd Date/Time/By: 06/13/2019 (2498) : By: [email or web address] Orig Print D/T: S: 06/13/2019 (6184) PAGE 1 Signed ReportARTERIAL BLOOD [id number] 13:59:00 Test Item Value Reference Range Interpretation [...]
[2021-08-17] MEDS ORDERED: FUROSEMIDE 40 MG/4 ML VIAL ONE (15:51)
[2021-08-17] MEDS ORDERED: METHYLPREDNISOLONE 125 MG INJ ONE (15:51)
--- NOTE | 2021-08-17 15:52 | RAD REPORT ---
EXAM DESCRIPTION: RAD - Chest Single View - 08/17/2021 3:46 pm CLINICAL HISTORY: SOB Chest pain. COMPARISON: Chest Single View dated 04/10/2021; Chest Single View dated 05/12/2020; Chest Single View dated 05/10/2020; Chest Single View dated 05/08/2020 FINDINGS: Portable technique limits examination quality. Mild bilateral pulmonary opacities are present, greater on the right, likely representing pulmonary e nuno or infection. The heart is moderately enlarged in size with multi lead pacer/defibrillator devic e. No displaced fractures. IMPRESSION: Mild to moderate CHF pattern is suspected.
[2021-08-17 16:41] LABS: Absolute Lymphocytes (CBC) 0.7 K/uL (0.7-4.9); Hematocrit 40.3 % (39.6-49.0); Lymphocytes % 3.9 % (15.3-44.8); MPV 6.7 fL (7.6-11.3); RBC Red Blood Cell Count 4.18 M/uL (4.33-5.43)
[2021-08-17 16:51] LABS: Protime INR 1.16
[2021-08-17 17:07] LABS: Albumin 3.3 g/dL (3.4-5.0); Bilirubin Direct 0.2 mg/dL (0-0.2); Bilirubin Total 0.8 mg/dL (0.2-1.0); Magnesium 2.3 mg/dL (1.8-2.4); Potassium 4.7 mmol/L (3.5-5.1); Protein, Total 8.7 g/dL (6.4-8.2); Troponin (Emerg Dept Use Only) 0.02 ng/mL (0.0-0.045)
[2021-08-17 17:47] LABS: SARS-COV-2 RT PCR NEGATIVE (NEGATIVE)
[2021-08-17] MEDS ORDERED: NA CHLORIDE 0.9% 100 ML ONE (17:58)
[2021-08-17] MEDS ORDERED: CEFEPIME 1 GM/VIAL ONE (17:58)
--- NOTE | 2021-08-17 18:00 | EDPHYS ---
Physician Documentation [facility] Name: Jarod Kraft Age: 66 yrs Sex: Male : 1955 Arrival Date: 08/17/2021 Time: 15:27 Bed 14 Private MD: ED Physician [place] HPI: 08/17 15:45 This 66 yrs old Male presents to ER via Unassigned with complaints of cp Shortness of Breath. 15:45 The patient has shortness of breath at rest. cp 15:45 Onset: The symptoms/episode began/occurred yesterday. cp 15:45 Duration: The symptoms are continuous, and are steadily getting worse. Associated signs cp and symptoms: Pertinent negatives: chest pain, diaphoresis, fever. Historical: - Allergies: 15:30 Cipro; bp 15:30 Erythromycin; bp - Home Meds: 08/18 01:50 amlodipine 10 mg tab 1 tab once daily [Active]; atorvastatin 40 mg Oral tab 1 tab once sv1 daily [Active]; carvedilol 25 mg Oral tab 1 tab 2 times per day [Active]; clonidine HCl 0.2 mg Oral tab 1 tab 3 times per day [Active]; Coreg 3.125 mg Oral tab 1 tab every 12 hours [Active]; Eliquis 2.5 mg Oral tab 1 tab 2 times per day [Active]; furosemide 40 mg Oral tab 1 tab once daily [Active]; glipizide 10 mg Oral tab 1 tab 2 times per day [Active]; isosorbide mononitrate 30 mg Oral Tb24 1 tab once daily [Active]; Lantus 20 units Sub-Q daily [Active]; Levemir 100 unit/mL subcutaneous soln [Active]; levetiracetam 500 mg Oral tab 1 tab 2 times per day [Active]; Lyrica 50 mg Oral 3 times per day [Active]; metformin 1,000 mg Oral tab 1 tab 2 times per day [Active]; Micardis 80 mg Oral tab 1 tab once daily [Active]; Norvasc 10 mg Oral tab 1 tab once daily [Active]; Xarelto 20 mg Oral tab 1 tab once daily [Active]; - PMHx: 08/17 15:30 CHF; Diabetes - IDDM; ESRD- M/W/F; High Cholesterol; Hypertension; Pacemaker; Irregular bp heart rate; - PSHx: 15:30 pacemaker; Dialysis Catheter; Cholecystectomy; bp - Immunization history:: Adult Immunizations up to date. - Social history:: Smoking status: unknown. ROS: 15:50 Constitutional: Negative for body aches, chills, fever, poor PO intake. cp 15:50 Eyes: Negative for injury, pain, redness, and discharge. cp 15:50 ENT: Negative for drainage from ear(s), ear pain, sore throat, difficulty swallowing, difficulty handling secretions. 15:50 Cardiovascular: Negative for chest pain. 15:50 Respiratory: Positive for shortness of breath, at rest. 15:50 Abdomen/GI: Negative for abdominal pain, nausea, vomiting, and diarrhea. 15:50 Neuro: Negative for altered mental status, dizziness, headache, weakness. 15:50 All other systems are negative. Exam: 15:55 Constitutional: The patient appears in no acute distress, alert, awake, cp non-diaphoretic, non-toxic, well developed, well nourished. 15:55 Head/Face: Normocephalic, atraumatic. cp 15:55 Eyes: Periorbital structures: appear normal, Conjunctiva: normal, no exudate, no injection, Sclera: no appreciated abnormality, Lids and lashes: appear normal, bilaterally. 15:55 ENT: External ear(s): are unremarkable, Nose: is normal, Mouth: Lips: moist, Oral mucosa: moist, Posterior pharynx: Airway: no evidence of obstruction, patent. 15:55 Neck: ROM/movement: is normal, is supple, without pain, no range of motions limitations, no meningismus. 15:55 Chest/axilla: Inspection: normal, Palpation: is normal, no crepitus, no tenderness. 15:55 Cardiovascular: Rate: tachycardic, Rhythm: regular, JVD: is not appreciated. 15:55 Respiratory: mild respiratory distress is noted, Respirations: labored breathing, that is mild, shallow respirations, that is mild, Breath sounds: decreased breath sounds, that are moderate, throughout, stridor, is not appreciated. 15:55 Abdomen/GI: Inspection: abdomen appears normal, Palpation: abdomen is soft and non-tender, in all quadrants. 15:55 Skin: no rash present. 15:55 Neuro: Orientation: to person, place \\T\\ time. Mentation: is normal. 16:32 ECG was reviewed by the Attending Physician. cp Vital Signs: 15:30 BP 118 / 67; Pulse 111; Resp 20; Pulse Ox 96% ; bp 15:30 BP 126 / 65; Pulse 115; Resp 20; Temp 98.2; Pulse Ox 91% on 15% Non-rebreather mask; bp 16:30 BP 118 / 75; Pulse 101; Resp 17; Pulse Ox 96% ; bp 17:30 BP 115 / 73; Pulse 106; Resp 26; Pulse Ox 96% ; bp 18:30 BP 99 / 63; Pulse 97; Resp 15; Pulse Ox 94% ; bp 21:54 BP 99 / 56; Pulse 97; Resp 18; Temp 97.2; Pulse Ox 95% 10 lpm ; sv1 08/18 02:56 BP 121 / 75; Pulse 92; Resp 18; Temp 97.7; Pulse Ox 100% 10 lpm ; sv1 06:19 BP 101 / 70; Pulse 80; Resp 13; Temp 94; Pulse Ox 94% 0 lpm ; sv1 MDM: 08/17 15:30 Patient medically screened. cp 16:00 Differential diagnosis: CHF exacerbation, pneumonia, pulmonary edema, Pulmonary cp Embolism Sepsis. 18:10 Data reviewed: vital signs, nurses notes, lab test result(s), EKG, radiologic studies, cp plain films. 18:10 Test interpretation: by ED physician or midlevel provider: ECG, plain radiologic cp studies. Counseling: I had a detailed discussion with the patient and/or guardian regarding: the historical points, exam findings, and any diagnostic results supporting the discharge/admit diagnosis, lab results, radiology results, the need for further work-up and treatment in the hospital. Physician consultation: Rigoberto Hawthorne was contacted at 17:55, regarding admission, to the telemetry unit. patient's condition. 08/17 15:30 Order name: Basic Metabolic Panel cp 08/17 15:30 Order name: CBC with Diff; Complete Time: 17:10 cp 08/17 17:10 Interpretation: Normal except: WBC 18.80; RBC 4.18; HGB 12.9; MCV 96.4; MCHC 31.9; RDW cp 16.2; MPV 6.7; PAULA% 91.8; LYM% 3.9; NEUT A 17.2. 08/17 15:30 Order name: LFT's; Complete Time: 17:29 cp 08/17 17:10 Interpretation: Normal except: AST 13; ALK 145; TP 8.7; ALB 3.3; GLOB 5.4; A/G 0.6. cp 08/17 15:30 Order name: Magnesium; Complete Time: 17:29 cp 08/17 15:30 Order name: NT PRO-BNP; Complete Time: 17:29 cp 08/17 15:30 Order name: PT-INR; Complete Time: 17:10 cp 08/17 15:30 Order name: Troponin (emerg Dept Use Only); Complete Time: 17:29 cp 08/17 15:30 Order name: Blood Culture Adult (2) cp 08/17 15:30 Order name: Lactate; Complete Time: 17:10 cp 08/17 17:11 Interpretation: Abnormal: LAC 2.2. cp 08/17 15:30 Order name: Procalcitonin; Complete Time: 17:29 cp 08/17 15:30 Order name: COVID-19/FLU A+B/RSV (Document "Date of Onset" if Symptomatic); Complete cp Time: 18:05 08/17 15:30 Order name: Urine Microscopic Only cp 08/17 15:32 Order name: Basic Metabolic Panel; Complete Time: 17:29 EDNV 08/17 17:11 Interpretation: Normal except: CO2 19; GLUC 234; BUN 60. cp 08/17 20:01 Order name: Lactate Sepsis 2 HR Follow-up EDNV 08/17 15:30 Order name: XRAY Chest (1 view); Complete Time: 17:10 cp 08/17 15:30 Order name: EKG; Complete Time: 15:32 cp 08/18 00:07 Order name: Glucose, Ancillary Testing EDMS 08/18 00:08 Order name: Glucose, Ancillary Testing EDMS 08/18 02:12 Order name: CBC with Automated Diff EDMS 08/18 02:57 Order name: Comprehensive Metabolic Panel EDMS 08/18 02:57 Order name: T4 Free EDMS 08/18 02:57 Order name: Thyroid Stimulating Hormone EDMS 08/18 03:00 Order name: Procalcitonin EDMS 08/18 03:01 Order name: CBC Smear Scan EDMS 08/18 08:07 Order name: Glucose, Ancillary Testing EDMS 08/18 08:18 Order name: RAD EDNV 08/17 15:30 Order name: Cardiac monitoring; Complete Time: 16:32 cp 08/17 15:30 Order name: EKG - Nurse/Tech; Complete Time: 16:32 cp 08/17 15:30 Order name: IV Saline Lock; Complete Time: 16:32 cp 08/17 15:30 Order name: Labs collected and sent; Complete Time: 16:32 cp 08/17 15:30 Order name: O2 Per Protocol; Complete Time: 16:32 cp 08/17 15:30 Order name: O2 Sat Monitoring; Complete Time: 16:32 cp 08/17 18:15 Order name: CONS Physician Consult EDMS EC:32 Rate is 103 beats/min. Rhythm is regular. SD interval is normal. QRS interval is cp prolonged at 152 msec. QT interval is normal. T waves are Inverted in leads aVL, aVR. Interpreted by me. Reviewed by me. Administered Medications: 16:20 Drug: SOLU-Medrol (methylPrednisoLONE) 125 mg Route: IVP; Site: left wrist; bp 18:22 Follow up: Response: No adverse reaction bp 21:57 Follow up: Response: No adverse reaction; Wheezing diminished sv1 16:20 Drug: Lasix (furosemide) 40 mg Route: IVP; Site: left wrist; bp 18:22 Follow up: Response: No adverse reaction bp 21:57 Follow up: Response: No adverse reaction sv1 17:30 Drug: Cefepime 1 grams Route: IVPB; Rate: 200 ml/hr; Infused Over: 30 mins; Site: left bp forearm; 21:57 Follow up: Response: No adverse reaction sv1 Point of Care Testing: Blood Glucose: 23:42 Blood Glucose: 166 mg/dL; Test Strip: Lot #: [id number]; Expiration: 04/22/2023; sv1 Ranges: Critical Glucose Levels:Adult <50 mg/dl or >400 mg/dl <40 mg/dl or >180 mg/dl Disposition Summary: 08/17/21 17:59 Hospitalization Ordered Hospitalization Status: Inpatient Admission cp Provider: Bunny Serrano cp Condition: Fair cp Problem: new cp Symptoms: have improved cp Bed/Room Type: Standard cp Location: Telemetry/MedSurg (Inpatient)(08/18/21 09:49) [facility] Room Assignment: 201(08/18/21 09:51) [facility] Diagnosis - Pneumonia, unspecified organism cp Forms: - Medication Reconciliation Form cp - SBAR form cp Signatures: Dispatcher [employer] EDRigoberto Osborn, STRATEGY MANAGER-C STRATEGY MANAGER-Cla1 Akira Riggs PA PA cp Tanya Modi, RN RN Andres Avendaño RN RN [facility] Herbert Alarcon RN RN Lior Baptiste RN RN sv1 Corrections: (The following items were deleted from the chart) 16:32 15:30 Urine Dipstick-Ancillary ordered. cp bp 18:55 17:59 Telemetry/MedSurg (Inpatient) cp cg 18:55 17:59 cp cg 08/18 09:49 08/17 18:55 [facility] ER HOLD cg [facility] 08/18 09:49 12 18:55 ERHOLD- cg [facility] 08/18 09:51 09:49 [address] [place] [id number]
--- NOTE | 2021-08-17 18:00 | ER ---
Nurse's Notes [facility] Name: Jarod Kraft Age: 66 yrs Sex: Male : 1955 Arrival Date: 08/17/2021 Time: 15:27 Bed 14 Private MD: Diagnosis: Pneumonia, unspecified organism Presentation: 08/17 15:30 Chief complaint: EMS states: SOB SINCE LAST PM. Coronavirus screen: At this time, the bp client does not indicate any symptoms associated with coronavirus-19. Ebola Screen: No symptoms or risks identified at this time. Initial Sepsis Screen: Does the patient meet any 2 criteria? HR > 90 bpm. No. Patient's initial sepsis screen is negative. Does the patient have a suspected source of infection? No. Patient's initial sepsis screen is negative. Risk Assessment: Do you want to hurt yourself or someone else? Patient reports no desire to harm self or others. Onset of symptoms is unknown. Care prior to arrival: Glucose check: 225. 15:30 Method Of Arrival: EMS: [facility] bp 15:30 Acuity: ASAF 2 bp Triage Assessment: 15:30 General: Appears distressed, uncomfortable, obese, Behavior is cooperative, appropriate bp for age, anxious. Pain: Denies pain. EENT: No deficits noted. Neuro: No deficits noted. Cardiovascular: Rhythm is sinus tachycardia. Respiratory: Airway is patent Respiratory effort is even, labored, Respiratory pattern is tachypnea the patient has moderate shortness of breath. GI: No signs and/or symptoms were reported involving the gastrointestinal system. : No signs and/or symptoms were reported regarding the genitourinary system. Derm: No deficits noted. Musculoskeletal: Swelling present in right leg and left leg. Historical: - Allergies: 15:30 Cipro; bp 15:30 Erythromycin; bp - Home Meds: 08/18 01:50 amlodipine 10 mg tab 1 tab once daily [Active]; atorvastatin 40 mg Oral tab 1 tab once sv1 daily [Active]; carvedilol 25 mg Oral tab 1 tab 2 times per day [Active]; clonidine HCl 0.2 mg Oral tab 1 tab 3 times per day [Active]; Coreg 3.125 mg Oral tab 1 tab every 12 hours [Active]; Eliquis 2.5 mg Oral tab 1 tab 2 times per day [Active]; furosemide 40 mg Oral tab 1 tab once daily [Active]; glipizide 10 mg Oral tab 1 tab 2 times per day [Active]; isosorbide mononitrate 30 mg Oral Tb24 1 tab once daily [Active]; Lantus 20 units Sub-Q daily [Active]; Levemir 100 unit/mL subcutaneous soln [Active]; levetiracetam 500 mg Oral tab 1 tab 2 times per day [Active]; Lyrica 50 mg Oral 3 times per day [Active]; metformin 1,000 mg Oral tab 1 tab 2 times per day [Active]; Micardis 80 mg Oral tab 1 tab once daily [Active]; Norvasc 10 mg Oral tab 1 tab once daily [Active]; Xarelto 20 mg Oral tab 1 tab once daily [Active]; - PMHx: 08/17 15:30 CHF; Diabetes - IDDM; ESRD- M/W/F; High Cholesterol; Hypertension; Pacemaker; Irregular bp heart rate; - PSHx: 15:30 pacemaker; Dialysis Catheter; Cholecystectomy; bp - Immunization history:: Adult Immunizations up to date. - Social history:: Smoking status: unknown. Screenin:30 Abuse screen: Denies threats or abuse. Denies injuries from another. Nutritional bp screening: No deficits noted. Tuberculosis screening: No symptoms or risk factors identified. Fall Risk None identified. Assessment: 15:30 General: SEE TRIAGE NOTE. bp 17:30 Reassessment: No changes from previously documented assessment. Patient and/or family bp updated on plan of care and expected duration. Pain level reassessed. HOSPITALIST AT B/S. PT TRIALED ON ROOM AIR, DESAT TO 80% WITHIN 3 MINUTES, NON-EXERTIONAL. 18:30 Reassessment: No changes from previously documented assessment. Patient and/or family bp updated on plan of care and expected duration. Pain level reassessed. PT MOVED TO ED6 FOR DIALYSIS THIS EVENING. 21:54 Reassessment: dialysis nurse has arrived.. sv1 22:07 Reassessment: The dialysis nurse requested albumin or the patient since he will require sv1 a lot of fluid to be removed. The albumin is at the bedside. . 08/18 01:50 Reassessment: Dialysis completed. The tech removed 3 liters of fluid. . sv1 Vital Signs: 12/26 15:30 BP 118 / 67; Pulse 111; Resp 20; Pulse Ox 96% ; bp 15:30 BP 126 / 65; Pulse 115; Resp 20; Temp 98.2; Pulse Ox 91% on 15% Non-rebreather mask; bp 16:30 BP 118 / 75; Pulse 101; Resp 17; Pulse Ox 96% ; bp 17:30 BP 115 / 73; Pulse 106; Resp 26; Pulse Ox 96% ; bp 18:30 BP 99 / 63; Pulse 97; Resp 15; Pulse Ox 94% ; bp 21:54 BP 99 / 56; Pulse 97; Resp 18; Temp 97.2; Pulse Ox 95% 10 lpm ; sv1 08/18 02:56 BP 121 / 75; Pulse 92; Resp 18; Temp 97.7; Pulse Ox 100% 10 lpm ; sv1 06:19 BP 101 / 70; Pulse 80; Resp 13; Temp 94; Pulse Ox 94% 0 lpm ; sv1 ED Course: 08/17 15:27 Patient arrived in ED. eb 15:27 Akira Riggs PA is PHCP. cp 15:27 Bunny Spring MD is Attending Physician. cp 15:30 Arm band placed on. bp 15:30 Patient has correct armband on for positive identification. Bed in low position. Call bp light in reach. Side rails up X2. 15:43 Herbert Alarcon RN is Primary Nurse. bp 15:46 XRAY Chest (1 view) In Process Unspecified. EDMS 16:20 Inserted saline lock: 22 gauge in left wrist, using aseptic technique. Blood collected. bp 16:32 EKG done, by ED staff, reviewed by Akira GREEN. dh3 17:14 Triage completed. bp 17:57 Bunny Serrano MD is Hospitalizing Provider. cp 19:18 Primary Nurse role handed off by Herbert Alarcon, RN mw2 21:42 Lior Baptiste, SHARRON is Primary Nurse. sv1 Administered Medications: 16:20 Drug: SOLU-Medrol (methylPrednisoLONE) 125 mg Route: IVP; Site: left wrist; bp 18:22 Follow up: Response: No adverse reaction bp 21:57 Follow up: Response: No adverse reaction; Wheezing diminished sv1 16:20 Drug: Lasix (furosemide) 40 mg Route: IVP; Site: left wrist; bp 18:22 Follow up: Response: No adverse reaction bp 21:57 Follow up: Response: No adverse reaction sv1 17:30 Drug: Cefepime 1 grams Route: IVPB; Rate: 200 ml/hr; Infused Over: 30 mins; Site: left bp forearm; 21:57 Follow up: Response: No adverse reaction sv1 Point of Care Testing: Blood Glucose: 23:42 Blood Glucose: 166 mg/dL; Test Strip: Lot #: [id number]; Expiration: 04/22/2023; sv1 Ranges: Outcome: 17:59 Decision to Hospitalize by Provider. eloisa 08/18 12:40 Patient left the ED. ll1 Signatures: Dispatcher [employer] EDMS Akira Riggs PA PA Daly Denis 3 Herbert Alarcon RN RN Sandy Pretty 2 Keke Lerner Lynsay, RN RN ll1 Lior Baptiste RN RN sv1
--- NOTE | 2021-08-17 18:25 | P.HP ---
Certification for Inpatient Patient admitted to: Inpatient With expected LOS: >2 Midnights Patient will require the following post-hospital care: None Practitioner: I am a practitioner with admitting privileges, knowledge of patient current condition, hospital course, and medical plan of care. Services: Services provided to patient in accordance with Admission requirements found in Title 42 Section 412.3 of the Code of Federal Regulations <Rigoberto Hawthorne - Last Filed: 08/17/21 18:21> Patient History Date of Service: 08/17/21 Reason for admission: Respiratory failure History of Present Illness: 66-year-old male with history of ESRD on HD MWF, chronic systolic congestive heart failure with severe pulmonary hypertension, diabetes mellitus type 2insulin-dependent, hypertension, pacemaker, hyperlipidemia presents the emergency department for respiratory distress. Patient has been compliant with his dialysis did complete dialysis on Wednesday, upon arrival to the emergency department patient's room air saturations in the 70s, patient currently on BiPAP FiO2 60% saturating around 92%. I discussed case with nephrology while patient was in the emergency department who will arrange for dialysis today as patient cannot be diuresed well given that he does not make hardly any urine. We will need to admit for acute respiratory failure secondary to volume overload/CHF/ESRD. - Past Medical/Surgical History Diabetic: Yes -: Hypertension -: Diabetes mellitus type 2, insulin-dependent -: CAD with pacemaker -: Hyperlipidemia -: Diabetic neuropathy -: Chronic systolic/diastolic congestive heart failure -: ESRD on HD MWF -: Pacemaker placement -: Cholecystectomy Psychosocial/ Personal History: Patient is - Family History Father -: Heart disease Mother -: Diabetes - Social History Smoking Status: Never smoker Alcohol use: No CD- Drugs: No Caffeine use: Yes Place of Residence: Home <Rigoberto Hawthorne - Last Filed: 08/17/21 18:21> Date of Service: 08/17/21 <Bunny Serrano - Last Filed: 08/25/21 00:47> Allergies ciprofloxacin Allergy (Severe, Verified 03/22/20 05:24) Hives/Rash erythromycin base Allergy (Intermediate, Verified 03/22/20 05:24) GI upset/burning Home Medications: levETIRAcetam [Levetiracetam] 500 mg PO BID 09/11/16 Atorvastatin Calcium 40 mg PO BEDTIME 06/30/19 Isosorbide Mononitrate [Isosorbide Mononitrate ER] 30 mg PO DAILY 09/09/19 allopurinoL [Zyloprim*] 100 mg PO DAILY #30 tab 03/25/20 Pantoprazole [Protonix Tab*] 40 mg PO BIDAC #60 tab 05/15/20 Amlodipine [Norvasc*] 10 mg PO DAILY 08/18/21 Apixaban [Eliquis *] 2.5 mg PO BID 08/18/21 Aspirin [Jeff Chewable Aspirin] 81 mg PO DAILY 08/18/21 Calcium Carbonate [Tums Ultra] 400 mg PO TIDWM 08/18/21 Carvedilol [Coreg] 25 mg PO BID 08/18/21 Furosemide [Lasix] 40 mg PO Q12H 08/18/21 Insulin Detemir [Levemir] 27 units SQ BEDTIME 08/18/21 Sevelamer Carbonate [Renvela*] 1,600 mg PO TIDWM 08/18/21 Sitagliptin Phosphate [Januvia*] 25 mg PO BEDTIME 08/18/21 Review of Systems 10-point ROS is otherwise unremarkable Respiratory: Shortness of Breath, SOB with Excertion Cardiovascular: Orthopnea <Rigoberto Hawthorne - Last Filed: 08/17/21 18:21> Physical Examination - Physical Exam General: Alert, In no apparent distress, Oriented x3 HEENT: Atraumatic, PERRLA, Mucous membr. moist/pink, EOMI, Sclerae nonicteric Neck: Supple, 2+ carotid pulse no bruit, No LAD, Without JVD or thyroid abnormality Respiratory: Diminished, Crackles/rales, Other (Tachypnea, dyspnea, currently on BiPAP) Cardiovascular: Regular rate/rhythm (Sinus tachycardia rate 105), Normal S1 S2 Capillary refill: <2 Seconds Gastrointestinal: Normal bowel sounds, No tenderness Musculoskeletal: No tenderness Integumentary: No rashes Neurological: Normal speech, Normal strength at 5/5 x4 extr, Normal tone, Normal affect - Studies Laboratory Data (last 24 hrs) 08/17/21 16:20: PT 13.4 H, INR 1.16 08/17/21 16:20: WBC 18.80 H, Hgb 12.9 L, Hct 40.3, Plt Count 235 08/17/21 16:20: Sodium 136, Potassium 4.7, BUN 60 H, Creatinine 8.06 H*, Glucose 234 H, Magnesium 2.3, Total Bilirubin 0.8, AST 13 L, ALT 33, Alkaline Phosphatase 145 H <Rigoberto Hawthorne - Last Filed: 08/17/21 18:21> Assessment and Plan - Plan Assessment: Acute hypoxic respiratory failure secondary to acute on chronic systolic congestive heart failure complicated with ESRD on HD MWF Leukocytosis Diabetes mellitus type 2insulin-dependent Hypertension Hyperlipidemia CAD with pacemaker Plan: Acute hypoxic respiratory failure secondary to acute on chronic systolic congestive heart failure complicated with ESRD on HD MWF: patient does not make much urine at all, will need dialysis for volume management. Case was dis cussed with nephrology while patient is in the emergency department, will arrange for dialysis this evening. Continue with BiPAP at this time for respiratory support. Patient states she feels much better with BiPAP but quickly desaturates when he comes off of it. Chest x-ray does demonstrate bilateral pulmonary infiltrates likely edema greater on the right but could be a pneumonia component. White blood cell count significantly elevated 18,000 will cover with cefepime at this time, repeat chest x-ray tomorrow. Blood cultures were obtained in the emergency department will follow. Leukocytosis: Continue as above Diabetes mellitus type 2insulin-dependent: A [facility] Accu-Chek sliding scale insulin. Hypertension: Obtain and continue home medication as appropriate Hyperlipidemia: Obtain and continue medication CAD with pacemaker: Monitor on telemetry. Continue medications. DVT PPX: Heparin subcu Code status: Full Discharge Plan: Home Plan to discharge in: 48 Hours - Advance Directives Does patient have a Living Will: No Does patient have a Durable POA for Healthcare: No - Code Status/Comfort Care Code Status Assessed: Yes (Full code) Critical Care: No Time Spent Managing Pts Care (In Minutes): 55 <Rigoberto Hawthorne - Last Filed: 08/17/21 18:21> - Problems (Diagnosis) (1) ESRD (end stage renal disease) Status: Acute (2) Acute on chronic systolic CHF (congestive heart failure) Status: Acute (3) Acute respiratory failure with hypoxia Status: Acute (4) Acute worsening of stage 3 chronic kidney disease Status: Acute (5) Diabetes mellitus Status: Acute (6) Malignant hypertension Status: Acute (7) Pulmonary hypertension Status: Acute (8) History of permanent cardiac pacemaker placement Status: Chronic <Bunny Serrano - Last Filed: 08/25/21 00:47> Date of Service: 08/17/21 Subjective Agree with HPI as mentioned above Review of Systems 10-point ROS is otherwise unremarkable Physical Examination - Vital Signs Reviewed - Physical Exam General: Alert, In no apparent distress, Oriented x3 Respiratory: Clear to auscultation bilaterally, Normal air movement Cardiovascular: Regular rate/rhythm, Normal S1 S2, No murmurs Gastrointestinal: Normal bowel sounds, Soft and benign, Non-distended, No tenderness Musculoskeletal: No clubbing, No swelling, No tenderness Neurological: Sensation intact, Cranial nerves 3-12 intact - Studies Medications List Reviewed: Yes Assessment & Plan - Problems (Diagnosis) (1) ESRD (end stage renal disease) Status: Acute (2) Acute on chronic systolic CHF (congestive heart failure) Status: Acute (3) Acute respiratory failure with hypoxia Status: Acute (4) Acute worsening of stage 3 chronic kidney disease Status: Acute (5) Diabetes mellitus Status: Acute (6) Malignant hypertension Status: Acute (7) Pulmonary hypertension Status: Acute (8) History of permanent cardiac pacemaker placement Status: Chronic - Plan Plan: 1. Continue with hemodialysis 2. Appreciate Nephrology consultation 3. Strict blood pressure control 4. Continue with cardiac meds 5. GI and DVT prophylaxis Discharge Plan: Home Plan to discharge in: Greater than 2 days - Advance Directives Does patient have a Living Will: No Does patient have a Durable POA for Healthcare: No - Code Status/Comfort Care Code Status Assessed: Yes Code Status: Full Code Critical Care: No Time Spent Managing PTS Care (In Minutes): 45 <Bunny Serrano - Last Filed: 08/25/21 00:47>
[2021-08-17] MEDS ORDERED: ALBUMIN HUMAN 25% 100 ML IV ONE ×2 (21:39→22:08)
[2021-08-17] MEDS: HEPARIN 5000 UNIT/ML 1 ML VIAL SQ SCH (22:50)
[2021-08-17] MEDS: INSULIN -REGULAR HUMAN 50 UNIT/0.5 ML ML SQ SCH (22:50)
[2021-08-17] MEDS ORDERED: ONDANSETRON 4 MG/2 ML VIAL IV PRN (22:50)
[2021-08-18 02:10] LABS: Absolute Lymphocytes (CBC) 0.8 K/uL (0.7-4.9); Hematocrit 44.6 % (39.6-49.0); Lymphocytes % 5.7 % (15.3-44.8); MPV 6.7 fL (7.6-11.3); RBC Red Blood Cell Count 4.68 M/uL (4.33-5.43)
[2021-08-18 02:56] LABS: Albumin 3.9 g/dL (3.4-5.0); Bilirubin Total 1.1 mg/dL (0.2-1.0); Potassium 4.3 mmol/L (3.5-5.1); Protein, Total 9.7 g/dL (6.4-8.2); Thyroid Stimulating Hormone 1.76 uIU/mL (0.360-3.740)
[2021-08-18 03:00] LABS: Blood Morphology Comment NOT SEEN (NOT SEEN); Platelet Estimate ADEQ; White Blood Cell Scan OK (OK)
[2021-08-18 03:35] VITALS: BMI 36.4
[2021-08-18] MEDS: INSULIN -REGULAR HUMAN 50 UNIT/0.5 ML ML SQ SCH ×4 (07:30→23:36)
--- NOTE | 2021-08-18 08:04 | P.CNS ---
Date of Consult: 08/18/21 Reason for Consult: Advanced CKD Requesting Physician: Bunny Serrano Chief Complaint: SOB History of Present Illness: 66M w/ PMHx of ESRD on HD MWF, last HD 3d ago, CAD S/P CABG, chronic systolic HF w/ severe pulmo Htn S/P AICD, DM2, HTN, & HLD who p/w SOB & hypoxia, admitted for further eval/mngt & dialysis. He received HD today. Allergies ciprofloxacin Allergy (Severe, Verified 03/22/20 05:24) Hives/Rash erythromycin base Allergy (Intermediate, Verified 03/22/20 05:24) GI upset/burning Home Medications: levETIRAcetam [Levetiracetam] 500 mg PO BID 09/11/16 Atorvastatin Calcium 40 mg PO BEDTIME 06/30/19 Isosorbide Mononitrate [Isosorbide Mononitrate ER] 30 mg PO DAILY 09/09/19 allopurinoL [Zyloprim*] 100 mg PO DAILY #30 tab 03/25/20 Pantoprazole [Protonix Tab*] 40 mg PO BIDAC #60 tab 05/15/20 Amlodipine [Norvasc*] 10 mg PO DAILY 08/18/21 Apixaban [Eliquis *] 2.5 mg PO BID 08/18/21 Aspirin [Jeff Chewable Aspirin] 81 mg PO DAILY 08/18/21 Calcium Carbonate [Tums Ultra] 400 mg PO TIDWM 08/18/21 Carvedilol [Coreg] 25 mg PO BID 08/18/21 Furosemide [Lasix] 40 mg PO Q12H 08/18/21 Insulin Detemir [Levemir] 27 units SQ BEDTIME 08/18/21 Sevelamer Carbonate [Renvela*] 1,600 mg PO TIDWM 08/18/21 Sitagliptin Phosphate [Januvia*] 25 mg PO BEDTIME 08/18/21 - Past Medical/Surgical History Diabetic: Yes -: Hypertension -: Diabetes mellitus type 2, insulin-dependent -: CAD with pacemaker -: Hyperlipidemia -: Diabetic neuropathy -: Chronic systolic/diastolic congestive heart failure -: ESRD on HD MWF -: Pacemaker placement -: Cholecystectomy Psychosocial/ Personal History: Patient is - Family History Father Medical History: Heart disease Mother Medical History: Diabetes - Social History Smoking Status: Unknown if ever smoked Alcohol use: No CD- Drugs: No Caffeine use: Yes Place of Residence: Home Review of Systems General: Weakness Eyes: Unremarkable ENT: Unremarkable Respiratory: Shortness of Breath, SOB with Excertion Cardiovascular: Unremarkable Gastrointestinal: Unremarkable Genitourinary: Unremarkable Musculoskeletal: Unremarkable Integumentary: Unremarkable Neurological: Unremarkable Lymphatics: Unremarkable Physical Examination General: Other (appears chronically ill) HEENT: Atraumatic, Normocephalic Neck: Supple, JVD not distended Respiratory: Other (symmetric chest expansion) Cardiovascular: No rubs, No murmurs Gastrointestinal: Soft and benign, No guarding Musculoskeletal: No clubbing Integumentary: No warmth Neurological: Normal speech, Normal tone Lymphatics: No axilla or inguinal lymphadenopathy Urinary: Other (no bladder distention) External genitalia: Deferred Rectal: Deferred Laboratory Data (last 24 hrs) 08/17/21 16:20: PT 13.4 H, INR 1.16 08/17/21 16:20: WBC 18.80 H, Hgb 12.9 L, Hct 40.3, Plt Count 235 08/17/21 16:20: Sodium 136, Potassium 4.7, BUN 60 H, Creatinine 8.06 H*, Glucose 234 H, Magnesium 2.3, Total Bilirubin 0.8, AST 13 L, ALT 33, Alkaline Phosphatase 145 H Conclusions/Impression: # ESRD on HD MWF HD received today Renal and TM diet renal vitamin by mouth daily Monitor renal panel # Acute respiratory failure 2/2 acute on chronic systolic HF s/p AICD; CAD s/p CABG HD as above Cont cardioprudent meds # Anemia Monitor H/H # Renal osteodystrophy Monitor Ca & Phos # DM2 Mngt per primary team
--- NOTE | 2021-08-18 08:18 | RAD REPORT ---
EXAM DESCRIPTION: RAD - Chest Single View - 08/18/2021 5:42 am CLINICAL HISTORY: Eval for pneumonia/volume status COMPARISON: August 17 TECHNIQUE: AP portable chest image was obtained 08/18/2021 5:42 am . FINDINGS: Lung volume has improved slightly from the prior day study. Airspace opacification remains in the mid and lower right lung field. Pattern is not thought to be progressive. Pacemaker/defibrill ator remains in place. Prominent heart size remains. No enlarging pleural effusion. There is no pneum othorax. IMPRESSION: Failure/volume overload pattern is stable from August 17 imaging.
[2021-08-18] MEDS ORDERED: CEFEPIME 1 GM/VIAL ONE (08:57)
[2021-08-18] MEDS ORDERED: HEPARIN 5000 UNIT/ML 1 ML VIAL ONE (08:57)
[2021-08-18] MEDS: CEFEPIME 1 GM in NA CHLORIDE 0.9% 100 ML IV SCH (08:58)
[2021-08-18] MEDS ORDERED: NA CHLORIDE 0.9% 100 ML ONE (08:58)
[2021-08-18] MEDS ORDERED: INSULIN -REGULAR HUMAN 50 UNIT/0.5 ML ML ONE (08:58)
[2021-08-18] MEDS: HEPARIN 5000 UNIT/ML 1 ML VIAL SQ SCH ×2 (08:59→23:38)
[2021-08-19 01:26] VITALS: O2SAT 94
[2021-08-19 05:41] LABS: Absolute Lymphocytes (CBC) 1.3 K/uL (0.7-4.9); Hematocrit 40.9 % (39.6-49.0); Lymphocytes % 8.5 % (15.3-44.8); MPV 6.7 fL (7.6-11.3)
[2021-08-19 06:06] LABS: Albumin 3.7 g/dL (3.4-5.0); Bilirubin Total 0.9 mg/dL (0.2-1.0); Protein, Total 9.1 g/dL (6.4-8.2)
[2021-08-19 06:07] LABS: Potassium 4.2 mmol/L (3.5-5.1)
--- NOTE | 2021-08-19 06:50 | P.PN ---
Subjective Date of Service: 08/19/21 Chief Complaint: SOB Subjective: No new changes, Other (received HD yesterday.) Physical Examination - Vital Signs Temperature: 97.2 F Blood Pressure: 117/72 Pulse: 98 Respirations: 17 Pulse Ox (%): 96 - Physical Exam General: Other (appears as his stated age) HEENT: Atraumatic, Normocephalic Neck: Supple Respiratory: Other (symmetric chest expansion) Cardiovascular: No rubs, No murmurs Gastrointestinal: Soft and benign, No guarding Musculoskeletal: No clubbing Integumentary: No warmth Neurological: Normal speech, Normal tone Urinary: Other (no bladder distention) External genitalia: Deferred Rectal: Deferred Assessment And Plan - Plan # ESRD on HD MWF HD received yesterday Next HD tomorrow Renal and TM diet renal vitamin by mouth daily Monitor renal panel # Acute respiratory failure 2/2 acute on chronic systolic HF s/p AICD; CAD s/p CABG HD as above Cont cardioprudent meds # Anemia Monitor H/H # Renal osteodystrophy Monitor Ca & Phos # DM2 Mngt per primary team
[2021-08-19] MEDS: INSULIN -REGULAR HUMAN 50 UNIT/0.5 ML ML SQ SCH ×3 (07:30→16:16)
[2021-08-19] MEDS ORDERED: CEFEPIME 1 GM in NA CHLORIDE 0.9% 100 ML IV SCH (09:00)
[2021-08-19] MEDS: CEFEPIME 1 GM in NA CHLORIDE 0.9% 100 ML IV SCH (09:00)
[2021-08-19] MEDS: HEPARIN 5000 UNIT/ML 1 ML VIAL SQ SCH (09:57)
--- NOTE | 2021-08-19 14:44 | P.PN ---
Subjective Date of Service: 08/18/21 Subjective: No new changes, Improving, Doing well Review of Systems 10-point ROS is otherwise unremarkable Physical Examination - Vital Signs Temperature: 96.8 F Blood Pressure: 113/74 Pulse: 92 Respirations: 17 Pulse Ox (%): 91 - Physical Exam General: Alert, In no apparent distress, Oriented x3 Respiratory: Clear to auscultation bilaterally, Normal air movement Cardiovascular: Regular rate/rhythm, Normal S1 S2, No murmurs Gastrointestinal: Normal bowel sounds, Soft and benign, Non-distended, No tenderness Musculoskeletal: No clubbing, No swelling, No tenderness Neurological: Sensation intact, Cranial nerves 3-12 intact - Studies Medications List Reviewed: Yes Assessment & Plan - Problems (Diagnosis) (1) ESRD (end stage renal disease) Status: Acute (2) Acute on chronic systolic CHF (congestive heart failure) Status: Acute (3) Acute respiratory failure with hypoxia Status: Acute (4) Acute worsening of stage 3 chronic kidney disease Status: Acute (5) Diabetes mellitus Status: Acute (6) Malignant hypertension Status: Acute (7) Pulmonary hypertension Status: Acute (8) History of permanent cardiac pacemaker placement Status: Chronic - Plan Plan: 1. Continue with hemodialysis 2. Appreciate Nephrology consultation 3. Strict blood pressure control 4. Continue with cardiac meds 5. GI and DVT prophylaxis Discharge Plan: Home Plan to discharge in: Greater than 2 days - Advance Directives Does patient have a Living Will: No Does patient have a Durable POA for Healthcare: No - Code Status/Comfort Care Code Status Assessed: Yes Code Status: Full Code Critical Care: No Time Spent Managing PTS Care (In Minutes): 45
[2021-08-25 00:47] VITALS: BP 113/74; TEMP 96.8
--- NOTE | 2021-08-25 00:49 | P.DS ---
Discharge Date: 08/19/21 Disposition: ROUTINE DISCHARGE Discharge Condition: GOOD Reason for Admission: SOB - Problems (1) ESRD (end stage renal disease) Status: Acute (2) Acute on chronic systolic CHF (congestive heart failure) Status: Acute (3) Acute respiratory failure with hypoxia Status: Acute (4) Acute worsening of stage 3 chronic kidney disease Status: Acute (5) Diabetes mellitus Status: Acute (6) Malignant hypertension Status: Acute (7) Pulmonary hypertension Status: Acute (8) History of permanent cardiac pacemaker placement Status: Chronic Brief History of Present Illness: 66-year-old male with history of ESRD on HD MWF, chronic systolic congestive heart failure with severe pulmonary hypertension, diabetes mellitus type 2insulin-dependent, hypertension, pacemaker, hyperlipidemia presents the emergency department for respiratory distress. Patient has been compliant with his dialysis did complete dialysis on Wednesday, upon arrival to the emergency department patient's room air saturations in the 70s, patient currently on BiPAP FiO2 60% saturating around 92%. I discussed case with nephrology while patient was in the emergency department who will arrange for dialysis today as patient cannot be diuresed well given that he does not make hardly any urine. We will need to admit for acute respiratory failure secondary to volume overload/CHF/ESRD. Hospital Course: Patient has done well during hospitalization. Volume status is stable. At this time, patient is stable for discharge home. Vital Signs/Physical Exam: Temp Pulse Resp BP Pulse Ox 96.8 F 92 H 17 113/74 91 08/25/21 00:46 08/25/21 00:46 08/25/21 00:46 08/25/21 00:46 08/25/21 00:46 General: Alert, In no apparent distress, Oriented x3 Laboratory Data at Discharge: WBC 15.50 K/uL (4.3-10.9) H 08/19/21 05:20 Hgb 13.5 g/dL (13.6-17.9) L 08/19/21 05:20 Hct 40.9 % (39.6-49.0) 08/19/21 05:20 Plt Count 266 K/uL (152-406) D 08/19/21 05:20 PT 13.4 SECONDS (9.5-12.5) H 08/17/21 16:20 INR 1.16 08/17/21 16:20 Sodium 137 mmol/L (136-145) 08/19/21 05:20 Potassium 4.2 mmol/L (3.5-5.1) 08/19/21 05:20 BUN 54 mg/dL (7-18) H 08/19/21 05:20 Creatinine 6.32 mg/dL (0.55-1.3) H* D 08/19/21 05:20 Glucose 170 mg/dL (74-106) H 08/19/21 05:20 Magnesium 2.3 mg/dL (1.8-2.4) 08/17/21 16:20 Total Bilirubin 0.9 mg/dL (0.2-1.0) 08/19/21 05:20 AST 19 U/L (15-37) 08/19/21 05:20 ALT 33 U/L (12-78) 08/19/21 05:20 Alkaline Phosphatase 132 U/L (45-117) H 08/19/21 05:20 Home Medications: levETIRAcetam [Levetiracetam] 500 mg PO BID 09/11/16 Atorvastatin Calcium 40 mg PO BEDTIME 06/30/19 Isosorbide Mononitrate [Isosorbide Mononitrate ER] 30 mg PO DAILY 09/09/19 allopurinoL [Zyloprim*] 100 mg PO DAILY #30 tab 03/25/20 Pantoprazole [Protonix Tab*] 40 mg PO BIDAC #60 tab 05/15/20 Amlodipine [Norvasc*] 10 mg PO DAILY 08/18/21 Apixaban [Eliquis *] 2.5 mg PO BID 08/18/21 Aspirin [Jeff Chewable Aspirin] 81 mg PO DAILY 08/18/21 Calcium Carbonate [Tums Ultra] 400 mg PO TIDWM 08/18/21 Carvedilol [Coreg] 25 mg PO BID 08/18/21 Furosemide [Lasix] 40 mg PO Q12H 08/18/21 Insulin Detemir [Levemir] 27 units SQ BEDTIME 08/18/21 Sevelamer Carbonate [Renvela*] 1,600 mg PO TIDWM 08/18/21 Sitagliptin Phosphate [Januvia*] 25 mg PO BEDTIME 08/18/21 Physician Discharge Instructions: OK TO DC IV AND DC HOME FOLLOW-UP WITH PRIMARY CARE PROVIDER IN 1-2 WEEKS FOLLOW-UP WITH NEPHROLOGY IN 1-2 WEEKS FOLLOW-UP WITH CARDIOLOGY IN 1-2 WEEKS RETURN TO THE ER IF symptoms worsens CALL or TEXT DR. DUTTA AT [phone] IF ANY QUESTIONS REGARDING HOSPITAL STAY. PLEASE CALL THE FLOOR AT [phone] IF ANY MEDICATION OR NURSING QUESTIONS. Diet: AHA Activity: Fall precautions Followup: [facility] [Provider Group] - 1-2 Weeks (radiation protection technician- call to schedule an appointment ) Caren Goss [ACTIVE - CAN ADMIT] - 1-2 Weeks (Follow up with your progressive die maker or call to schedule an appointment with Dr. Goss. ) Jacoby Kuo FNP [Primary Care Provider] - 1-2 Weeks (PCP- call to schedule an appointment ) Time spent managing pt's care (in minutes): 35
== END 2021-08-19 18:36 | disposition home or self-care (01) | DRG 291 ==
LOC: ER 15:19 → ERHOLD 18:30 → 2ND 08-18 11:11
PROVIDERS: ADMIT Hospitalist; ATTEND Hospitalist
PROC: 5A09457 Assistance with Respiratory Ventilation, 24-96 Consecutive Hours, Continuous Positive Airway Pressure (ICD-10-PCS; 2021-08-17)
PROC: 5A1D70Z Performance of Urinary Filtration, Intermittent, Less than 6 Hours Per Day (ICD-10-PCS; principal; 2021-08-18)
DX: I13.2 Hypertensive heart and chronic kidney disease with heart failure and with stage 5 chronic kidney disease, or end stage renal disease (principal); N18.6 End stage renal disease; J96.01 Acute respiratory failure with hypoxia; I50.23 Acute on chronic systolic (congestive) heart failure; E11.22 Type 2 diabetes mellitus with diabetic chronic kidney disease; E11.40 Type 2 diabetes mellitus with diabetic neuropathy, unspecified; E78.5 Hyperlipidemia, unspecified; D72.829 Elevated white blood cell count, unspecified; I27.20 Pulmonary hypertension, unspecified; D64.9 Anemia, unspecified; N25.0 Renal osteodystrophy; I25.10 Atherosclerotic heart disease of native coronary artery without angina pectoris; Z88.1 Allergy status to other antibiotic agents; Z79.01 Long term (current) use of anticoagulants; Z79.4 Long term (current) use of insulin; Z79.84 Long term (current) use of oral hypoglycemic drugs; Z79.899 Other long term (current) drug therapy; Z95.0 Presence of cardiac pacemaker; Z99.2 Dependence on renal dialysis; Z95.1 Presence of aortocoronary bypass graft; Z90.49 Acquired absence of other specified parts of digestive tract; Z79.82 Long term (current) use of aspirin; Z20.822 Contact with and (suspected) exposure to COVID-19
CPT/HCPCS: 0241U; 36415; 71045; 80048; 80053; 80076; 82947; 83605; 83735; 83880; 84145; 84439; 84443; 84484; 85025; 85610; 87040; 90935; 93005; 94660; 94760; 99285; J0692; J1644; J1940; J2930; P9047

== ENCOUNTER 2021-11-06 17:34 | Inpatient (IN) | payer OTHER ==
--- OUTSIDE RECORDS SUMMARY | 2021-11-06 17:38 | XMS REPORT | Continuity of Care Document ---
:1955 Author Organization [facility] t Address [address] [place] [place] [address] Care Team Providers Name Role Phone Monica [...] U UNKNOWN [facility] y[facility] 04-10 West 00:00: [address] ciproflo DA Active U UNKNOWN [facility] xacin 04-10 00:00: [address] erythrom DA Active U 0 [facility] ycin 04-10 West base 00:00: [address] ciproflo DA Active U [facility] xacin 04-10 00:00: [address] Erythrom Propensi Active Other - See "Burning Univers ycin ty to comments 2-18 in ity of adverse 00:00: stomach." [place] reaction [address] [place] [address] Branch ERYTHROM DRUG Active Other-Cmnt 2020-0 Univ ers YCIN 2-18 ity of 00:00: [place] 00 Medical Branch azithrom DA Active SC 2019-1 [facility] ycin 0-22 [place] 00:00: [place] [facility] azithrom DA Active SC BURNING 2018-1 [facility] ycin SENSATION 0-22 [place] ABDOMEN 00:00: [place] 00 [facility] azithrom DA Active [place] 2015-0 [facility] ycin 3-27 [place] 00:00: 00 [facility] NO KNOWN Drug Active Univers ALLERGIE Class ity of [facility] Social History Social Habit Start Date Stop Date Quantity Comments Source Sex [facility]igned [facility] to SARS-CoV-2 Not sure [facility] Smoking Status Start Date Stop Date Source Unknown if ever smoked [facility] Medications This patient has no known medications. Vital Signs Vital Name Observation Time Observation Value Comments Source Systolic blood 2020-10-10 11:41:00 152 mm[Hg] [facility] Diastolic blood 2020-10-10 11:41:00 93 mm[Hg] [facility] Heart rate 2020-10-10 11:41:00 89 /min [facility] Body temperature 2020-10-10 11:41:00 36.5 Kathy [facility] Respiratory rate 2020-10-10 11:41:00 16 /min [facility] Body height 2020-10-10 11:41:00 167.6 cm [facility] Body weight 2020-10-10 11:41:00 101.152 kg [facility] BMI 2020-10-10 11:41:00 35.99 kg/m2 [facility] Oxygen saturation in 2020-10-10 11:41:00 99 /min [facility] Arterial blood by [facility] Pulse oximetry Branch Systolic blood 2020-10-10 11:41:00 152 mm[Hg] [facility] Diastolic blood 2020-10-10 11:41:00 93 mm[Hg] [facility] Heart rate 2020-10-10 11:41:00 89 /min [facility] Body temperature 2020-10-10 11:41:00 36.5 Kathy [facility] [place] Respiratory rate 2020-10-10 11:41:00 16 /min [facility] Body height 2020-10-10 11:41:00 167.6 cm [facility] Body weight 2020-10-10 11:41:00 101.152 kg [facility] BMI 2020-10-10 11:41:00 35.99 kg/m2 [facility] Oxygen saturation in 2020-10-10 11:41:00 99 /min [facility] Arterial blood by [facility] Pulse oximetry Branch Procedures Procedure Date / Time Performed Performing Clinician Blaire akers [id number] 2021-04-16 00:00:00 [facility] [id number] 2021-04-14 00:00:00 [facility] [id number] 2021-04-12 00:00:00 [facility] [id number] 2021-04-12 00:00:00 [facility] [id number] 2021-04-12 00:00:00 [facility] [id number] 2021-04-12 00:00:00 [facility] [id number] 2021-04-11 00:00:00 [facility] [id number] 2021-04-10 00:00:00 [facility] [id number] 2021-04-10 00:00:00 [facility] [id number] 2021-04-10 00:00:00 [facility] NOTICE OF PRIVACY 2020-10-10 11:34:50 Doctor Unassigned, No Univ [facility] PRACTICES Name Medical Branch CONSENT/REFUSAL FOR 2020-10-10 11:33:32 [facility], [facility] DIAGNOSIS AND Name Medical Branch TREATMENT Encounters Start End Encounter Admission Attending Care Care Encounter Source Date/Time Date/Time Type Type Clinicians Facility Department ID 2021-04-10 2021-04-17 Inpatient EM Monica Bardales [facility] TELE [id number] [facility] 23:30:00 17:46:00 [id number] [facility] 2021-04-10 2021-04-17 Inpatient EM Monica Bardales [facility] TELE [id number] [facility] 23:30:00 17:46:00 54 [facility] 2020-10-10 2020-10-10 Emergency [facility] [id number] [facility] 05:46:00 06:35:00 [id number] [facility] [id number] [address] 2020-10-10 2020-10-10 Emergency [facility] [id number] 05:46:00 06:35:00 Rubi Sales [id number] [place] [id number] [place] [id number] [facility] 2020-10-10 2020-10-10 Emergency X [facility] ERT [id number] 2020-09-23 Outpatient AltagraciaYOLANDAWU SURG [id number] [facility] 10:30:00 10:30:00 Gaudencio [id number] [facility] Results Test Description Test Time Test Comments Results Result Comments Source GLUCOSE BEDSIDE TESTING 2021-04-17 16:16:00 Test Item Value Reference Range Interpretation Comme nts GLUCOSE BEDSIDE TESTING (test code = GLUBED) 153 MG/DL 60-99 H GLUCOSE BEDSIDE [id number] 10:53:00 Test Item Value Reference Range Interpretation Comments GLUCOSE BEDSIDE TESTING (test code 167 MG/DL 60-99 H = GLUBED) GLUCOSE BEDSIDE [id number] 07:16:00 Test Item Value Reference Range Interpretation Comments GLUCOSE BEDSIDE TESTING (test code 101 MG/DL 60-99 H = GLUBED) GLUCOSE BEDSIDE [id number] 20:21:00 Test Item Value Reference Range Interpretation Comments GLUCOSE BEDSIDE TESTING (test code 131 MG/DL 60-99 H = GLUBED) - [facility] R/S [id number] 16:47:00 [facility] 1955 Sex: M Patient Name: JAROD GOTTLIEB Unit No: [id number] EXAMS: CPT CODE: [id number] NM MUGA R/S SINGLE 19809 Indication: Ventricular malfunction. MUGA scan: RADIOPHARMACEUTICAL: 24.5mCi [id number]-[id number] RBC COMPARISON: None. LOCATION: C3 FINDINGS: Following IV administration of 24.5 mCi Tc-99m UltraTag labeled red blood cells, imaging was performed of the heart in the NINFA projection. Dynamic playback demonstrates grossly hypokinetic left [...] [id number] Orig Print D/T: S: 04/16/2021 (165) [facility] NAME: JAROD GOTTLIEB [id number] PHYS: [place] [address] : 1955 AGE: 65 SEX: M LOC: Tyrell Thompson PHONE #: [phone] EXAM DATE: 04/16/2021 STATUS: ADMIN FAX #: [phone] RADIOLOGY NO: PAGE 1 Signed ReportGLUCOSE BEDSIDE [id number] 16:43:00 Test Item Value Reference Range Interpretation Comments GLUCOSE BEDSIDE TESTING (test code 157 MG/DL 60-99 H = GLUBED) GLUCOSE BEDSIDE [id number] 13:45:00 Test Item Value Reference Range Interpretation Comments GLUCOSE BEDSIDE TESTING (test code 214 MG/DL 60-99 H = GLUBED) GLUCOSE BEDSIDE [id number] 07:33:00 Test Item Value Reference Range Interpretation Comments GLUCOSE BEDSIDE TESTING (test code 104 MG/DL 60-99 H = GLUBED) CBC W/AUTO [id number] 05:50:00 Test Item Value Reference Range Interpretation [...] 0.00 K/mm3 0.0-0.1 N NRBC#) BASIC METABOLIC [id number] 05:49:00 Test Item Value Reference Range Interpretation [...] 8.8 MG/DL 8.4-10.2 N CA) GLUCOSE BEDSIDE [id number] 19:53:00 Test Item Value Reference Range Interpretation Comments GLUCOSE BEDSIDE TESTING (test code 176 MG/DL 60-99 H = GLUBED) GLUCOSE BEDSIDE [id number] 15:17:00 Test Item Value Reference Range Interpretation Comments GLUCOSE BEDSIDE TESTING (test code 140 MG/DL 60-99 H = GLUBED) GLUCOSE BEDSIDE [id number] 11:46:00 Test Item Value Reference Range Interpretation Comments GLUCOSE BEDSIDE TESTING (test code 192 MG/DL 60-99 H = GLUBED) ARTERIAL BLOOD [id number] 11:00:00 Test Item Value Reference Range Interpretation [...] mated message] code = TEMPA) The system [employer] generated this result transmit jose juan reference range : 37. The reference r yasmani was not used to interpret this result as normal/abnormal . ABG SITE (test code = RR SITEA) ALLENS TEST (test Y CHECK code = ALLENS) FIO2 (test code = 60 % COHBGFFIO2) PaO2/[id number] 11:00:00 Test Item Value Reference Range Interpretation Comments PaO2/FiO2 (test code = JBA2YXO3) 463.50 mm/Hg ARTERIAL BLOOD [id number] 10:53:00 Test Item Value Reference Range Interpretation [...] FIO2 (test code = 50 % COHBGFFIO2) PaO2/[id number] 10:53:00 Test Item Value Reference Range Interpretation Comments PaO2/FiO2 (test code = VIJ5WMF3) 239.80 mm/Hg GLUCOSE BEDSIDE [id number] 07:25:00 Test Item Value Reference Range Interpretation Comments GLUCOSE BEDSIDE TESTING (test code 105 MG/DL 60-99 H = GLUBED) GLUCOSE BEDSIDE [id number] 22:06:00 Test Item Value Reference Range Interpretation Comments GLUCOSE BEDSIDE TESTING (test code 171 MG/DL 60-99 H = GLUBED) GLUCOSE BEDSIDE [id number] 15:26:00 Test Item Value Reference Range Interpretation Comments GLUCOSE BEDSIDE TESTING (test code 137 MG/DL 60-99 H = GLUBED) GLUCOSE BEDSIDE [id number] 11:30:00 Test Item Value Reference Range Interpretation Comments GLUCOSE BEDSIDE TESTING (test code 152 MG/DL 60-99 H = GLUBED) BASIC METABOLIC [id number] 10:51:00 Test Item Value Reference Range Interpretation [...] 8.4 MG/DL 8.4-10.2 N CA) GLUCOSE BEDSIDE [id number] 07:50:00 Test Item Value Reference Range Interpretation Comments GLUCOSE BEDSIDE TESTING (test code = 88 MG/DL 60-99 N GLUBED) GLUCOSE BEDSIDE [id number] 19:41:00 Test Item Value Reference Range Interpretation Comments GLUCOSE BEDSIDE TESTING (test code 127 MG/DL 60-99 H = GLUBED) GLUCOSE BEDSIDE [id number] 16:56:00 Test Item Value Reference Range Interpretation Comments GLUCOSE BEDSIDE TESTING (test code 128 MG/DL 60-99 H = GLUBED) GLUCOSE BEDSIDE [id number] 11:27:00 Test Item Value Reference Range Interpretation Comments GLUCOSE BEDSIDE TESTING (test code 136 MG/DL 60-99 H = GLUBED) - XR CHEST 2 [id number] 09:56:00 [facility] 1955 Sex: M Patient Name: JAROD GOTTLIEB Unit No: [id number] EXAMS: CPT CODE: [id number] XR CHEST 2 V 80486 C3 TIME OF STUDY: 04/13/2021 9:00 AM [...] [id number].[id number].[email or web address] Orig Print D/T: S: 04/13/2021 (0959) [facility] NAME: JAROD GOTTLIEB [id number] PHYS: [place] [address] : 1955 AGE: 65 SEX: M LOC: Z.363 A PHONE #: [phone] EXAM DATE: 04/13/2021 STATUS: ADM IN FAX #: [phone] RADIOLOGY NO: PAGE 1 Signed ReportGLUCOSE BEDSIDE TESTING 2021-04-13 07:30:00 Test Item Value Reference Range Interpretation Comments GLUCOSE BEDSIDE TESTING (test code 117 MG/DL 60-99 H = GLUBED) BASIC METABOLIC [id number] 05:41:00 Test Item Value Reference Range Interpretation [...] 9.2 MG/DL 8.4-10.2 N CA) CBC W/AUTO [id number] 05:29:00 Test Item Value Reference Range Interpretation [...] 0.00 K/mm3 0.0-0.1 N NRBC#) GLUCOSE BEDSIDE [id number] 20:06:00 Test Item Value Reference Range Interpretation Comments GLUCOSE BEDSIDE TESTING (test code 147 MG/DL 60-99 H = GLUBED) GLUCOSE BEDSIDE [id number] 16:50:00 Test Item Value Reference Range Interpretation Comments GLUCOSE BEDSIDE TESTING (test code 139 MG/DL 60-99 H = GLUBED) COVID 19 Asymptomatic IH [id number] 16:16:00 Test Item Value Reference Range Interpretation [...] CARE STAFF: SHARRON HutchinsON 04/12/21755 BY Imtiaz [id number] 15:29:00 Test Item Value Reference Range Interpretation Comments PHOSPHOROUS (test code = PHOS) 6.3 MG/DL 2.5-4.5 H UNABLE TO DRAW BLOOD, REASON: PT TRANSFER TO CATHNOTIFIED PATIENT CARE STAFF: SHARRON HutchinsON 04/12/21755 BY Sd [id number] 15:29:00 Test Item Value Reference Range Interpretation Comments MAGNESIUM (test code = MAG) 2.3 MG/DL 1.6-2.3 N UNABLE TO DRAW BLOOD, REASON: PT TRANSFER TO CATHNOTIFIED PATIENT CARE STAFF: SHARRON HutchinsON 04/12/21755 BY Hemanth MalinamPROTHROMBIN [id number] 15:17:00 Test Item Value Reference Range Interpretation [...] STAFF: SHARRON HutchinsON 04/12/21755 BY Adelina Malin [id number] 15:17:00 Test Item Value Reference Range Interpretation Comments PTT ACTIVATED (test code = APTT) 47.4 SECONDS 25.1-36.5 H UNABLE TO DRAW BLOOD, REASON: PT TRANSFER TO CATHNOTIFIED PATIENT CARE STAFF: SHARRON HutchinsON 04/12/21755 BY Madhu MalinLACTIC [id number] 15:17:00 Test Item Value Reference Range Interpretation Comments LACTIC ACID (test code = LACT) 1.4 MMOL/L 0.7-2.1 N CBC W/AUTO [id number] 14:57:00 Test Item Value Reference Range Interpretation [...] TO DRAW BLOOD, REASON: PT TRANSFER TO [facility] PATIENT CARE STAFF: SHARRON HutchinsON 04/12/21AT 0757 BY Madhu MalinGLUCOSE BEDSIDE [id number] 12:15:00 Test Item Value Reference Range Interpretation Comments GLUCOSE BEDSIDE TESTING (test code 104 MG/DL 60-99 H = GLUBED) GLUCOSE BEDSIDE [id number] 11:18:00 Test Item Value Reference Range Interpretation Comments GLUCOSE BEDSIDE TESTING (test code = 56 MG/DL 60-99 L GLUBED) GLUCOSE BEDSIDE [id number] 09:13:00 Test Item Value Reference Range Interpretation Comments GLUCOSE BEDSIDE TESTING (test code = 70 MG/DL 60-99 N GLUBED) LACTIC [id number] 05:32:00 Test Item Value Reference Range Interpretation Comments LACTIC ACID (test code = LACT) 2.1 MMOL/L 0.7-2.1 N UNABLE TO DRAW BLOOD, REASON: CBNNOTIFIED PATIENT CARE STAFF: YOAV 04/12/21 AT 0209 BY Chung CharltonCTIC [id number] 21:43:00 Test Item Value Reference Range Interpretation Comments LACTIC ACID (test code = LACT) 3.7 MMOL/L 0.7-2.1 H GLUCOSE BEDSIDE [id number] 21:30:00 Test Item Value Reference Range Interpretation Comments GLUCOSE BEDSIDE TESTING (test code 175 MG/DL 60-99 H = GLUBED) LACTIC [id number] 18:53:00 Test Item Value Reference Range Interpretation Comments LACTIC ACID (test code = LACT) 3.7 MMOL/L 0.7-2.1 H PROTHROMBIN [id number] 18:37:00 Test Item Value Reference Range Interpretation [...] ARLEEN 04/11/21 AT 1809 BY Nimisha Jones [id number] 18:37:00 Test Item Value Reference Range Interpretation Comments PTT ACTIVATED (test code = APTT) 56.3 SECONDS 25.1-36.5 H UNABLE TO DRAW BLOOD, REASON: CBNNOTIFIED PATIENT CARE STAFF: ARLEEN 04/11/21 AT 1809 BY Carmina Jones BLOOD [id number] 17:57:00 Test Item Value Reference Range Interpretation [...] mated message] code = TEMPA) The system [employer] generated this result transmit jose juan reference range : 37. The reference r yasmani was not used to interpret this result as normal/abnormal . ABG SITE (test code = RR SITEA) ALLENS TEST (test Y CHECK code = ALLENS) FIO2 (test code = 60 % COHBGFFIO2) PaO2/[id number] 17:57:00 Test Item Value Reference Range Interpretation Comments PaO2/FiO2 (test code = CIR5CGF4) mm/Hg ARTERIAL BLOOD [id number] 17:57:00 Test Item Value Reference Range Interpretation [...] mated message] code = TEMPA) The system [employer] generated this result transmit jose juan reference range : 37. The reference r yasmani was not used to interpret this result as normal/abnormal . ABG SITE (test code = RR SITEA) ALLENS TEST (test Y CHECK code = ALLENS) FIO2 (test code = 60 % COHBGFFIO2) PaO2/[id number] 17:57:00 Test Item Value Reference Range Interpretation Comments PaO2/FiO2 (test code = CFK5YGN5) 463.50 mm/Hg LACTIC [id number] 15:50:00 Test Item Value Reference Range Interpretation Comments LACTIC ACID (test code = LACT) 4.5 MMOL/L 0.7-2.1 H AG HEPATITIS B [id number] 12:09:00 Test Item Value Reference Range Interpretation Comments AG HEPATITIS B SURFACE (test code = NEGATIVE NONREACTIVE HBSAG) [id number] 09:02:00 Test Item Value Reference Range Interpretation Comments TROPONIN-I (test 20.600 NG/ML 0.012-0.033 HH CALLED TO Jay Reynolds& code = TROPI) READBACK ON AT 0902 BY KARLA MAYA CHEST [id number] 08:19:00 [facility] 1955 Sex: M Patient Name: JAROD GOTTLIEB Unit No: [id number] EXAMS: CPT CODE: [id number] XR CHEST 1V 72137 HISTORY: Shortness of breath, pacer malfunction Location [...] t.BRENNENR.[id number] Orig Print D/T: S: 04/11/2021 (0823) [facility] NAME: JAROD GOTTLIEB [address] PHYS: [id number] - [place] [address] : 1955 AGE: 65 SEX: M LOC: ELSIE Garcia PHONE #: [phone] EXAM DATE: 04/11/2021 STATUS: ADM IN FAX #: [phone] RADIOLOGY NO: PAGE 1 Signed ReportGLYCOSYLATED HEMOGLOBIN [id number] 07:52:00 Test Item Value Reference Range Interpretation [...] H (test code = MBG) CBC W/AUTO [id number] 06:02:00 Test Item Value Reference Range Interpretation [...] 0.0-0.1 N code = NRBC#) COMPREHENSIVE METABOLIC [id number] 05:55:00 Test Item Value Reference Range Interpretation [...] 0-189 mg/dL VERY HIGH...... ...>/= 190 mg/dL [id number] 05:55:00 Test Item Value Reference Range Interpretation Comments PHOSPHOROUS (test code = PHOS) 8.2 MG/DL 2.5-4.5 H [id number] 05:55:00 Test Item Value Reference Range Interpretation Comments MAGNESIUM (test code = MAG) 2.3 MG/DL 1.6-2.3 N ARTERIAL BLOOD [id number] 05:47:00 Test Item Value Reference Range Interpretation [...] [Automated message] (test code = TEMPA) The [employer] which generated this result transmitted ref erence range: 37. The reference range was not used to int erpret this result as normal/abnormal . ABG SITE (test code LR = SITEA) ALLENS TEST (test Y CHECK code = ALLENS) FIO2 (test code = 50 % COHBGFFIO2) PaO2/[id number] 05:47:00 Test Item Value Reference Range Interpretation Comments PaO2/FiO2 (test code = HDM0ETN6) 239.80 mm/Hg COMPREHENSIVE METABOLIC [id number] 05:46:00 Test Item Value Reference Range Interpretation [...] LDL (test MG/DL 0-99 code = LDL) [id number] 05:46:00 Test Item Value Reference Range Interpretation Comments PHOSPHOROUS (test code = PHOS) 8.2 MG/DL 2.5-4.5 H [id number] 05:46:00 Test Item Value Reference Range Interpretation Comments MAGNESIUM (test code = MAG) 2.3 MG/DL 1.6-2.3 N ARTERIAL BLOOD [id number] 05:46:00 Test Item Value Reference Range Interpretation [...] [Automated message] (test code = TEMPA) [employer] which generated this result transmitted ref erence range: 37. The reference range was not used to int erpret this result as normal/abnormal . ABG SITE (test code LR = SITEA) ALLENS TEST (test Y CHECK code = ALLENS) FIO2 (test code = 50 % COHBGFFIO2) PaO2/[id number] 05:46:00 Test Item Value Reference Range Interpretation Comments PaO2/FiO2 (test code = PAD9KCU6) mm/Hg LIPOPROTEIN LDL [id number] 03:49:00 Test Item Value Reference Range Interpretation Comments LIPOPROTEIN LDL DIRECT 59 mg/dL 100-129 L ===== (test code = LDLDIR) ======= ==Refe rence Interval: mg/dL mmol/L--------- ------ ------ ------ --Optimal <100 <2.6Near/abov e optimal 100-129 2.6-3.3Borderli ne High 130-159 3.4-4.1High 16 0-189 4.1-4.9Ve ry High >=190 >=4.9========= This LDL result is a direct measurement.=== ====== [id number] 03:49:00 Test Item Value Reference Range Interpretation Comments TROPONIN-I (test 17.400 NG/ML 0.012-0.033 HH CALLED TO [employer].& code = TROPI) READBACK ON AT 0331 BY Miguel Gan LIPOPROTEIN LDL [id number] 03:31:00 Test Item Value Reference Range Interpretation Comments LIPOPROTEIN LDL DIRECT (test code = mg/dL 100-129 LDLDIR) [id number] 03:31:00 Test Item Value Reference Range Interpretation Comments TROPONIN-I (test 17.400 NG/ML 0.012-0.033 HH CALLED TO [employer].& code = TROPI) READBACK ON AT 0331 BY Miguel Gan GLUCOSE BEDSIDE [id number] 15:07:00 Test Item Value Reference Range Interpretation Comments GLUCOSE BEDSIDE TESTING 140 MG/DL 60-99 H Doct or Notified~ (test code = GLUBED) GLUCOSE BEDSIDE [id number] 13:43:00 Test Item Value Reference Range Interpretation Comments GLUCOSE BEDSIDE TESTING (test code 269 MG/DL 60-99 H = GLUBED) GLUCOSE BEDSIDE [id number] 13:21:00 Test Item Value Reference Range Interpretation Comments GLUCOSE BEDSIDE TESTING (test code 291 MG/DL 60-99 H = GLUBED) GLUCOSE BEDSIDE [id number] 12:15:00 Test Item Value Reference Range Interpretation Comments GLUCOSE BEDSIDE TESTING (test code 340 MG/DL 60-99 HH = GLUBED) GLUCOSE BEDSIDE [id number] 11:23:00 Test Item Value Reference Range Interpretation Comments GLUCOSE BEDSIDE TESTING (test code 394 MG/DL 60-99 HH = GLUBED) GLUCOSE BEDSIDE [id number] 10:43:00 Test Item Value Reference Range Interpretation Comments GLUCOSE BEDSIDE TESTING 407 MG/DL 60-99 HH Doct or Notified~ (test code = GLUBED) BASIC METABOLIC [id number] 10:36:00 Test Item Value Reference Range Interpretation [...] code = 9.2 MG/DL 8.4-10.2 N CA) [id number] 10:36:00 Test Item Value Reference Range Interpretation Comments MAGNESIUM (test code = MAG) 2.3 MG/DL 1.6-2.3 N BASIC METABOLIC [id number] 10:30:00 Test Item Value Reference Range Interpretation [...] CALCIUM (test code = CA) MG/DL 8.7-9.7 [id number] 10:30:00 Test Item Value Reference Range Interpretation Comments MAGNESIUM (test code = MAG) MG/DL 1.6-2.3 BASIC METABOLIC [id number] 10:29:00 Test Item Value Reference Range Interpretation [...] CALCIUM (test code = CA) MG/DL 8.7-9.7 [id number] 10:29:00 Test Item Value Reference Range Interpretation Comments MAGNESIUM (test code = MAG) MG/DL 1.6-2.3 PROTHROMBIN [id number] 10:25:00 Test Item Value Reference Range Interpretation [...] syste lars embolism. 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 [facility]2019-10-28 06:14:00 Test Item Value Reference Range Interpretation Comments GLUBED (test code = 139 mg/dL 74-106 H Performe d by certified GLUBED) 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 [facility] [id number] 04:42:00 Test Item Value Reference Range Interpretation Comments GLUBED (test code = 166 mg/dL 74-106 H Performe d by certified GLUBED) 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 [facility] [id number] 21:05:00 Test Item Value Reference Range Interpretation Comments GLUBED (test code = 311 mg/dL 74-106 H Performe d by certified GLUBED) 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 [facility] [id number] 17:31:00 Test Item Value Reference Range Interpretation Comments GLUBED (test code = 200 mg/dL 74-106 H Performe d by certified GLUBED) 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 [facility] [id number] 18:12:00 Test Item Value Reference Range Interpretation Comments GLUBED (test code = 207 mg/dL 74-106 H Performe d by certified GLUBED) 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 [facility] [id number] 12:02:00 Test Item Value Reference Range Interpretation Comments GLUBED (test code = 220 mg/dL 74-106 H Performe d by certified GLUBED) 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 [facility] [id number] 06:47:00 Test Item Value Reference Range Interpretation Comments GLUBED (test code 142 mg/dL 74-106 H Performed by certified = GLUBED) 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~ [id number] 06:29:00 Test Item Value Reference Range Interpretation Comments GLUBED (test code 212 mg/dL 74-106 H Performed by certified = GLUBED) 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 CREATININE (test code 3.00 mg/dL 0.7-1.3 H = CREAT) BUN/CREATININE RATIO 20.3 10-20 H (test code = BUN/CREA) CALCIUM (test code = 8.7 mg/dL 8.5-10.1 N CA) [id number] 02:36:00 Test Item Value Reference Range Interpretation Comments MAGNESIUM (test code = MAG) 2.0 mg/dL 1.8-2.4 N BASIC METABOLIC [id number] 02:21:00 Test Item Value Reference Range Interpretation [...] CALCIUM (test code = CA) mg/dL 8.5-10.1 [id number] 02:21:00 Test Item Value Reference Range Interpretation Comments MAGNESIUM (test code = MAG) mg/dL 1.8-2.4 CBC W/O [id number] 01:44:00 Test Item Value Reference Range Interpretation [...] fL 6.7-11.0 N (test code = MPV) [id number] 17:37:00 Test Item Value Reference Range Interpretation Comments GLUBED (test code = 274 mg/dL 74-106 H Performe d by certified GLUBED) 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 [facility] [id number] 12:37:00 Test Item Value Reference Range Interpretation Comments GLUBED (test code = 187 mg/dL 74-106 H Performe d by certified GLUBED) 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 [facility] [id number] 11:42:00 Test Item Value Reference Range Interpretation Comments GLUBED (test code = 188 mg/dL 74-106 H Performe d by certified GLUBED) 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 [facility] - XR CHEST 1 [id number] 09:18:00 FAX: Reji Hernandez MD [place]: St: [facility] FAX: Asmita David NP [phone] Name: JAROD YU [facility] : 1955 Age/S: 63/M [address] [facility] Unit #: [id number] Loc: V.2058 [place] [address] Phys: Asmita David NP Acct: V [id number] Dis Date: Status: ADM IN PHONE #: [phone] Exam Date: 06/16/2019 0858 FAX #: [phone] Reason: CHF EXAMS: CPT CODE: [id number] XR CHEST 1 V 83614 HISTORY: CHF. COMPARISON: Previous day. Left ICD is unchanged. Mild congestion. Smallbasilar effusions. Dependent changes. Small basilar effusions. Dependent changes. Cardiomegaly. IMPRESSION: Mild congestion is unchanged. at 0918 Reported and signed by: Anjum Helton M.D. CC: Reji Hernandez MD; Asmita David NP Technologist: ALETA MUHAMMAD JR Trnscrd Date/Time/By: 06/16/2019 (917) :By: [email or web address] Orig Print D/T: S: 06/16/2019 (21) PAGE 1 Signed ReportBASIC METABOLIC [id number] 08:56:00 Test Item Value Reference Range Interpretation [...] code = 8.5 mg/dL 8.5-10.1 N CA) [id number] 08:56:00 Test Item Value Reference Range Interpretation Comments MAGNESIUM (test code = MAG) 2.1 mg/dL 1.8-2.4 N CBC W/AUTO [id number] 08:44:00 Test Item Value Reference Range Interpretation [...] code = 0.00 K/mm3 0.0-0.1 N NRBC#) [id number] 08:27:00 Test Item Value Reference Range Interpretation Comments GLYCOSYLATED HEMOGLOBIN (HA1C) 9.7 % HbA1 4.8-6.0 H (test code = GLYHGB) ESTIMATED AVERAGE GLUCOSE (test 232 MG/DL code = EAG) [id number] 06:14:00 Test Item Value Reference Range Interpretation Comments GLUBED (test code = 134 mg/dL 74-106 H Performe d by certified GLUBED) 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 [facility] [id number] 04:22:00 Test Item Value Reference Range Interpretation Comments GLUBED (test code = 146 mg/dL 74-106 H Performe d by certified GLUBED) 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 [facility] [id number] 21:25:00 Test Item Value Reference Range Interpretation Comments GLUBED (test code = 179 mg/dL 74-106 H Performe d by certified GLUBED) 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 [facility] UR MICROALBUMIN/CREAT [id number] 17:08:00 Test Item Value Reference Range Interpretation [...] - 300.0 Clinical albuminuria: >300.0Performed At: [facility] [address] [place], [place] [id number] Preston Reynolds MD [phone] [facility] [id number] 16:47:00 Test Item Value Reference Range Interpretation Comments GLUBED (test code = 173 mg/dL 74-106 H Performe d by certified GLUBED) 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 [facility] [id number] 10:07:00 Test Item Value Reference Range Interpretation Comments GLUBED (test code = 151 mg/dL 74-106 H Performe d by certified GLUBED) 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 [facility] [id number] 07:12:00 Test Item Value Reference Range Interpretation Comments TROPONIN-I (test code = TROPI) 2.350 ng/mL 0-0.045 COMMENTS TO LEARNING AND DEVELOPMENT ASSOCIATE: COLLECT 3 HOURS AFTER PREVIOUS SAMPLE- XR CHEST 1 [id number] 06:25:00 FAX: Piter Collins [phone] [place]: B St: ADM FAX: Reji Hernandez Name: [facility] : 1955 Age/S: 63/M [address] [facility] Unit #: [id number] Loc: Germaine6 [place] [address] Phys: Piter Collins Acct: V [id number] Dis Date: Status: ADM IN PHONE #: [phone] Exam Date: 06/15/2019 0511 FAX #: [phone] Reason: updatedpulm view EXAMS: CPT CODE: [id number] XR CHEST 1 V 88941 CLINICAL HISTORY: Respiratory failure, CHF TECHNIQUE: AP chest x-ray COMPARISON: Previous day. IMPRESSION: Slightly worse bilateral airspace opacification and small pleural effusions. Cardiomegaly. AICD/biventricular pacer. LOCATION: at 0618 Reported and signed by: Eliz Ocampo D.O. CC: Piter Collins; Reji Hernandez MD Technologist: ALETA Bryan Trnscrd Date/Time/By: 06/15/2019 (624) : By: [email or web address] Orig Print D/T: S: 06/15/2019 (86) PAGE 1 Signed ReportPROCALCITONIN (PCT)2019-06-15 06:18:00 Test [...] ount the patients h istory. COMPREHENSIVE METABOLIC [id number] 06:07:00 Test Item Value Reference Range Interpretation [...] range due ALKP) to change in reagent. [id number] 06:07:00 Test Item Value Reference Range Interpretation Comments MAGNESIUM (test code = MAG) 2.2 mg/dL 1.8-2.4 N [id number] 05:29:00 Test Item Value Reference Range Interpretation Comments GLUBED (test code = 180 mg/dL 74-106 H Performe d by certified GLUBED) 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 [facility] CBC W/AUTO [id number] 05:09:00 Test Item Value Reference Range Interpretation [...] code = 0.00 K/mm3 0.0-0.1 N NRBC#) [id number] 21:16:00 Test Item Value Reference Range Interpretation Comments GLUBED (test code = 186 mg/dL 74-106 H Performe d by certified GLUBED) 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 [facility] [id number] 16:21:00 Test Item Value Reference Range Interpretation Comments GLUBED (test code = 229 mg/dL 74-106 H Performe d by certified GLUBED) 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 [facility] UR SMEAR EOSINOPHIL [id number] 16:03:00 Test Item Value Reference Range Interpretation Comments UR SMEAR EOSINOPHIL COUNT NONE SEEN per HPF NONE SEEN (test code = EOSCTU) UR NA,[id number] 16:03:00 Test Item Value Reference Range Interpretation Comments UR NA,RANDOM (test code = NOEMÍ) 113 mmol/L 20-110 H UR CHLORIDE [id number] 16:03:00 Test Item Value Reference Range Interpretation Comments UR CHLORIDE RANDOM (test code = 118 mEq/L CLU) UR PROTEIN/CREATININE [id number] 16:03:00 Test Item Value Reference Range Interpretation [...] (test code = P/CRATIO) UR SMEAR EOSINOPHIL [id number] 15:08:00 Test Item Value Reference Range Interpretation Comments UR SMEAR EOSINOPHIL COUNT (test code per HPF NONE SEEN = EOSCTU) UR NA,[id number] 15:08:00 Test Item Value Reference Range Interpretation Comments UR NA,RANDOM (test code = NOEMÍ) 113 mmol/L 20-110 H UR CHLORIDE [id number] 15:08:00 Test Item Value Reference Range Interpretation Comments UR CHLORIDE RANDOM (test code = 118 mEq/L CLU) UR PROTEIN/CREATININE [id number] 15:08:00 Test Item Value Reference Range Interpretation [...] (test code = P/CRATIO) UR SMEAR EOSINOPHIL [id number] 14:58:00 Test Item Value Reference Range Interpretation Comments UR SMEAR EOSINOPHIL COUNT (test code per HPF NONE SEEN = EOSCTU) UR NA,[id number] 14:58:00 Test Item Value Reference Range Interpretation Comments UR NA,RANDOM (test code = NOEMÍ) 113 mmol/L 20-110 H UR CHLORIDE [id number] 14:58:00 Test Item Value Reference Range Interpretation Comments UR CHLORIDE RANDOM (test code = 118 mEq/L CLU) UR PROTEIN/CREATININE [id number] 14:58:00 Test Item Value Reference Range Interpretation Comments UR PROTEIN RANDOM (test code = PROTU) mg/dL 0.0-11.9 UR CREATININE RANDOM (test code = mg/dL 30-125 CREATU) PROTEIN/CREATININE RATIO (test code = RATIO 0.0-0.20 P/CRATIO) [id number] 13:09:00 Test Item Value Reference Range Interpretation Comments GLUBED (test code = 214 mg/dL 74-106 H Performe d by certified GLUBED) 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 [facility] URINALYSIS [id number] 11:40:00 Test Item Value Reference Range Interpretation [...] 0-5 code = HYALU) Urine Source? Clean [id number] 11:38:00 Test Item Value Reference Range Interpretation Comments GLUBED (test code = 203 mg/dL 74-106 H Performe d by certified GLUBED) 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 [facility] URINALYSIS [id number] 11:35:00 Test Item Value Reference Range Interpretation [...] per HPF NONE BACU) Urine Source? Clean [id number] 07:40:00 Test Item Value Reference Range Interpretation Comments TROPONIN-I (test code = TROPI) 1.380 ng/mL 0-0.045 HH SPECIMEN COMMENTS: 0200 LAB- XR CHEST 1 [id number] 07:30:00 FAX: Piter Collins [phone] [place]: B St: ADM FAX: Reji Hernandez Name: [facility] : 1955 Age/S: 63/M [address] Unit #: [id number] Loc: V.S06 [place] [address] Phys: Piter Collins Acct: V [id number] Dis Date: Status: ADM IN PHONE #: [phone] Exam Date: 06/14/2019 0649 FAX #: [phone] Reason: updatedpulm view. EXAMS: CPT CODE: [id number] XR CHEST 1 V 08619 CLINICAL HISTORY: Respiratory failure, CHF TECHNIQUE: AP chest x-ray COMPARISON: Previous day. IMPRESSION: Improved patchy bilateral airspace opacification or pulmonary congestion. Small bilateral pleural effusions. Cardiomegaly. AICD/biv entricular pacer. LOCATION: at 0730 Reported and signed by: Eliz Ocampo D.O. CC: Piter Collins; Reji Hernandez MD Technologist: Cahnell Anderson(Eric) Trnscrd Date/Time/By: 06/14/2019 (07) : By: [email or web address] Orig Print D/T: S: 06/14/2019 (7295) PAGE 1 Signed ReportBASIC METABOLIC [id number] 03:27:00 Test Item Value Reference Range Interpretation [...] CALCIUM (test code = CA) mg/dL 8.5-10.1 [id number] 03:27:00 Test Item Value Reference Range Interpretation Comments MAGNESIUM (test code = MAG) mg/dL 1.8-2.4 BASIC METABOLIC [id number] 03:27:00 Test Item Value Reference Range Interpretation [...] GFR) formula.Chronic kidney disease is defined as [facility] kidney damageor GFR <60 mL/min/1.73 m2 for >3 months. CREATININE (test code 2.70 mg/dL 0.7-1.3 H = CREAT) BUN/CREATININE RATIO 18.8 10-20 N (test code = BUN/CREA) CALCIUM (test code = 7.3 mg/dL 8.5-10.1 L CA) [id number] 03:27:00 Test Item Value Reference Range Interpretation Comments MAGNESIUM (test code = MAG) 2.0 mg/dL 1.8-2.4 N CBC W/O [id number] 03:06:00 Test Item Value Reference Range Interpretation [...] code 8.8 fL 6.7-11.0 N = MPV) [id number] 00:03:00 Test Item Value Reference Range Interpretation Comments TROPONIN-I (test 1.480 ng/mL 0-0.045 HH RESULT VERI FIED BY code = TROPI) REPEAT ANALYSI S COMMENTS TO LEARNING AND DEVELOPMENT ASSOCIATE: COLLECT 3 HOURS AFTER PREVIOUS SAMPLE- US RETRO [id number] 18:28:00 [facility] 1955 Age/S: 63 / M [address] [facility] Unit #: [id number] Loc: [place] [address] Phys: Reji Hernandez MD Acct: [id number] Dis Date: Status: ADM IN PHONE #: [phone] Exam Date: 06/13/2019 1703 FAX #: [phone] Reason: ckd EXAMS: CPTCODE: [id number] US RETRO LTD [address] REASON FOR EXAM: ckd EXAM ORDER DATE: [...] 1 Signed Report (CONTINUED) Name: [facility] : 1955 Age/S: 63 / M [address] [facility] Unit #: [id number] Loc: [place] [address] Phys: Reji Hernandez MD Acct: [id number] Dis Date: Status: ADM IN PHONE #: [phone] Exam Date: 06/13/2019 1703 FAX #: [phone] Reason: ckd EXAMS: CPT CODE: [id number] [facility] [address] <Continued> CC: Krystina Kowalski MD; Reji Hernandez MD T echnologist: Ladi Ruiz RDMS [facility] Date/Time: 06/13/2019 (1827) [email or web address] Orig Print D/T: S: 06/13/2019 (606) Probe: PAGE 2 Signed Report PROTHROMBIN [id number] 14:57:00 Test Item Value Reference Range Interpretation [...] (2.5-3.5) IS PATIENT ON ANTICOAGULANTS? NTHROMBOPLASTIN TIME [id number] 14:57:00 Test Item Value Reference Range Interpretation Comments THROMBOPLASTIN TIME PARTIAL 47.3 seconds 25.0-36.5 H (test code = PTT) IS PATIENT ON ANTICOAGULANTS? [id number] 14:57:00 Test Item Value Reference Range Interpretation Comments D-DIMER (test 27530.00 0-500 HH RESULT VERIFIE D BY REPEAT [...] - IS PATIENT ON ANTICOAGULANTS? NB-TYPE NATRIURETIC [id number] 14:38:00 Test Item Value Reference Range Interpretation Comments B-TYPE NATRIURETIC PEPTIDE 1317.60 pgram/mL 0-100 H (test code = BNP) BASIC METABOLIC [id number] 14:36:00 Test Item Value Reference Range Interpretation [...] 8.6 mg/dL 8.5-10.1 N CA) HEPATIC FUNCTION [id number] 14:36:00 Test Item Value Reference Range Interpretation [...] code = 105 IUnit/L 26-208 N CK) [id number] 14:36:00 Test Item Value Reference Range Interpretation Comments LIPASE (test code = LIP) 241 U/L 73.0-393.0 N [id number] 14:36:00 Test Item Value Reference Range Interpretation Comments MAGNESIUM (test code = MAG) 2.3 mg/dL 1.8-2.4 N [id number] 14:36:00 Test Item Value Reference Range Interpretation Comments TROPONIN-I (test 1.890 ng/mL 0-0.045 HH Results ilda led to code = TROPI) [id number] by Azeem NOE 06/13/19 1433Cr itical results verifie d and read back by Angie rse? Y LACTIC [id number] 14:27:00 Test Item Value Reference Range Interpretation Comments LACTIC ACID (test code = LACT) 0.9 mmol/L 0.4-1.9 N BASIC METABOLIC [id number] 14:16:00 Test Item Value Reference Range Interpretation [...] code = CA) mg/dL 8.5-10.1 HEPATIC FUNCTION [id number] 14:16:00 Test Item Value Reference Range Interpretation [...] (CK) (test code = IUnit/L 26-208 CK) [id number] 14:16:00 Test Item Value Reference Range Interpretation Comments LIPASE (test code = LIP) U/L 73.0-393.0 [id number] 14:16:00 Test Item Value Reference Range Interpretation Comments MAGNESIUM (test code = MAG) mg/dL 1.8-2.4 [id number] 14:16:00 Test Item Value Reference Range Interpretation Comments TROPONIN-I (test code = TROPI) ng/mL 0-0.045 CBC W/AUTO [id number] 14:10:00 Test Item Value Reference Range Interpretation [...] 0.0-0.1 N NRBC#) - XR CHEST 1 [id number] 14:01:00 FAX: Krystina Banda [phone] [place]: St: PRE Name: [facility] : 1955 Age/S: 63/M [address] [facility] Unit#: [id number] Loc: [place] [address] Phys: Krystina Kowalski MD Acct: [id number] Dis Date: Status: PRE ER PHONE #: [phone] Exam Date: 06/13/2019 1350 FAX #: [phone] Reason: SHORTNESS OF BREATH EXAMS: CPT CODE: [id number] XR CHEST 1 V 93773 HISTORY: Shortness of breath. COMPARISON: None available. Left ICD with the leads in the right atrium and right ventricle patchy right infiltrate. Left basal infiltrate as well. Dependent changes. No effusion. Cardiomegaly. IMPRESSION: Patchy bilateral infiltrates, greater on the right. at 1401 Reported and signed by: Anjum Helton M.D. CC: Krystina Kowalski MD Technologist: RT LATONYA(R) Trnscrd Date/Time/By: 06/13/2019 (7113) : By: [email or web address] Orig Print D/T: S: 06/13/2019 (1095) PAGE 1 Signed ReportARTERIAL BLOOD [id number] 13:59:00 Test Item Value Reference Range Interpretation [...]
[2021-11-06 18:24] LABS: Absolute Lymphocytes (CBC) 1.5 K/uL (0.7-4.9); Hematocrit 34.6 % (39.6-49.0); Lymphocytes % 10.6 % (15.3-44.8); MPV 7.4 fL (7.6-11.3); RBC Red Blood Cell Count 3.57 M/uL (4.33-5.43)
[2021-11-06 18:28] LABS: Protime INR 1.9
[2021-11-06] MEDS ORDERED: NA CHLORIDE 0.9% 1,000 ML ONE (18:38)
[2021-11-06 18:58] LABS: Albumin 2.6 g/dL (3.4-5.0); Bilirubin Total 0.4 mg/dL (0.2-1.0); Potassium 3.7 mmol/L (3.5-5.1); Protein, Total 7.2 g/dL (6.4-8.2)
[2021-11-06 19:14] LABS: SARS-COV-2 RT PCR NEGATIVE (NEGATIVE)
--- NOTE | 2021-11-06 19:44 | RAD REPORT ---
EXAM DESCRIPTION: RAD - Chest Single View - 11/06/2021 6:53 pm CLINICAL HISTORY: weakness COMPARISON: Portable 08/18/2021 TECHNIQUE: AP portable chest image was obtained 11/06/2021 6:53 pm . FINDINGS: Lung volumes are low. Portable technique and body habitus further limits the examination. Right lung field and upper left lung field are clear. No vascular engorgement or other findings of si gnificant failure or volume overload. Cardiomegaly is present obscuring the lower left lung field. Significant left base finding is unlike ly. Pacemaker/defibrillator remains in place. No measurable pleural effusion and no pneumothorax. No acute bony abnormality seen. No acute aortic findings suspected. IMPRESSION: No acute lung parenchymal process identifiable. Cardiomegaly without other findings of acute failure or volume overload.
--- NOTE | 2021-11-06 20:25 | EDPHYS ---
Physician Documentation [facility] Name: Jarod Kraft Age: 66 yrs Sex: Male : 1955 Arrival Date: 11/06/2021 Time: 17:35 Bed 15 Private MD: ED Physician Tres Acevedo HPI: 11/06 18:30 This 66 yrs old Male presents to ER via Wheelchair with complaints of low BP jr11 and syncope. 19:06 The patient has experienced syncope, became unresponsive, collapsed, yesterday. jr11 Duration: This was a single episode, yesterday with LOC, today near syncope and generalized wekaness. Context: occurred at home. Associated injury: The patient did not suffer any apparent associated injury. Associated signs and symptoms: Pertinent positives: dizziness, lightheadedness, nausea, Pertinent negatives: abdominal pain, chest pain, seizure. Current symptoms: generalized weakness. ESRD dialysis last yesterday to arm fistula, PCP lidia in [place], [facility] [place], [facility]. Historical: - Allergies: 17:46 Cipro; tw2 17:46 Erythromycin; tw2 - Home Meds: 17:46 glipizide 10 mg Oral tab 1 tab 2 times per day [Active]; atorvastatin 40 mg Oral tab 1 tw2 tab once daily [Active]; Coreg 3.125 mg Oral tab 1 tab every 12 hours [Active]; amlodipine 10 mg tab 1 tab once daily [Active]; clonidine HCl 0.2 mg Oral tab 1 tab 3 times per day [Active]; carvedilol 25 mg Oral tab 1 tab 2 times per day [Active]; isosorbide mononitrate 30 mg Oral Tb24 1 tab once daily [Active]; Levemir 100 unit/mL subcutaneous soln [Active]; Lantus 20 units Sub-Q daily [Active]; levetiracetam 500 mg Oral tab 1 tab 2 times per day [Active]; Lyrica 50 mg Oral 3 times per day [Active]; Eliquis 2.5 mg Oral tab 1 tab 2 times per day [Active]; furosemide 40 mg Oral tab 1 tab once daily [Active]; metformin 1,000 mg Oral tab 1 tab 2 times per day [Active]; Micardis 80 mg Oral tab 1 tab once daily [Active]; Norvasc 10 mg Oral tab 1 tab once daily [Active]; Xarelto 20 mg Oral tab 1 tab once daily [Active]; - PMHx: 17:46 Diabetes - IDDM; ESRD- M/W/F; Hypertension; Irregular heart rate; Pacemaker; High tw2 Cholesterol; CHF; - PSHx: 17:46 Cholecystectomy; Dialysis Catheter; pacemaker; tw2 - Immunization history:: Client reports receiving the 2nd dose of the Covid vaccine. - Social history:: Smoking status: . ROS: 19:06 Constitutional: Negative for fever, chills jr11 19:06 All other systems are negative. Exam: 19:06 Constitutional: appears chronically ill Head/Face: Normocephalic, atraumatic. Eyes: jr11 Extra-ocular motions intact. Lids and lashes normal. Conjunctiva and sclera are non-icteric and not injected. Cornea within normal limits. Periorbital areas with no swelling, redness, or edema. ENT: Nares patent. No nasal discharge, no septal abnormalities noted. Oropharynx with no redness, swelling, or masses, exudates, or evidence of obstruction, uvula midline. Mucous membranes moist. Neck: Trachea midline, no thyromegaly or masses palpated, and no cervical lymphadenopathy. Supple, full range of motion without nuchal rigidity, or vertebral point tenderness. No Meningismus. Chest/axilla: Normal chest wall appearance and motion. Nontender with no deformity. No lesions are appreciated. Respiratory: diminished at the bases Abdomen/GI: Soft, non-tender, with normal bowel sounds. No distension or tympany. No guarding or rebound. No evidence of tenderness throughout. Back: No spinal tenderness. No costovertebral tenderness. Full range of motion. Skin: Warm, dry with normal turgor. Normal color with no rashes, no lesions, and no evidence of cellulitis. Neuro: Awake and alert, GCS 15, oriented to person, place, time, and situation. No gross motor or sensory deficits. 19:06 ECG was reviewed by the Attending Physician. EKG interpreted by me shows paced rhythm, jr11 no STEMI. Vital Signs: 17:43 BP 84 / 56; Pulse 103; Resp 18; Temp 97.7(TE); Pulse Ox 95% on R/A; Weight 101.15 kg tw2 (R); Pain 0/10; 18:07 BP 92 / 60; Pulse 66; Resp 16 S; Pulse Ox 96% on R/A; jg9 18:15 BP 88 / 61; Pulse 78; Resp 15 S; Pulse Ox 94% on R/A; jg9 18:30 BP 75 / 57; Pulse 64; Resp 14; Pulse Ox 94% on R/A; jg9 19:30 BP 90 / 72 LA Supine (auto/reg); Pulse 63 MON; Resp 20 S; Temp 97.8; Pulse Ox 96% on tk1 R/A; Pain 0/10; 20:30 BP 84 / 61 LA Supine (auto/reg); Pulse 62 MON; Resp 18 S; Temp 98(O); Pulse Ox 92% on tk1 R/A; Pain 0/10; 21:30 BP 77 / 50 LA Supine (auto/reg); Pulse 60 MON; Resp 18 S; Pulse Ox 93% on R/A; Pain tk1 0/10; 22:30 BP 76 / 57 LA Supine (auto/reg); Pulse 60 MON; Resp 18 S; Pulse Ox 93% on R/A; Pain tk1 0/10; 23:00 BP 85 / 52 LA Supine (auto/reg); Pulse 59 MON; Resp 20 S; Temp 97.5(O); Pulse Ox 97% on tk1 R/A; Pain 0/10; 23:30 BP 80 / 63 LA Supine (auto/reg); Pulse 64 MON; Resp 20; Pulse Ox 94% on R/A; Pain 0/10; tk1 11/07 00:00 BP 83 / 54 LA Supine (auto/reg); Pulse 79 MON; Resp 18 S; Pulse Ox 95% on R/A; Pain tk1 0/10; 00:30 BP 94 / 64 LA Supine (auto/reg); Pulse 60 MON; Resp 20 S; Pulse Ox 94% on R/A; Pain tk1 0/10; 01:00 BP 105 / 72 LA Supine (auto/reg); Pulse 63 MON; Resp 20; Pulse Ox 95% ; Pain 2/10; tk1 MDM: 11/06 18:03 Patient medically screened. jr11 19:06 Differential Diagnosis: cardiac arrhythmia, seizure, vasovagal episode. Data reviewed: jr11 vital signs, nurses notes. ED course: Pt checked out to Dr Acevedo. 11/06 17:59 Order name: Blood Culture Adult (2) [facility] 11/06 17:59 Order name: CBC with Diff; Complete Time: 19:10 [facility] 11/06 17:59 Order name: CMP; Complete Time: 19:40 [facility] 11/06 17:59 Order name: Lactate; Complete Time: 19:10 [facility] 11/06 17:59 Order name: Protime (+inr); Complete Time: 19:10 [facility] 11/06 17:59 Order name: Ptt, Activated; Complete Time: 19:10 [facility] 11/06 17:59 Order name: Urine Culture [facility] 11/06 17:59 Order name: Urine Microscopic Only [facility] 11/06 18:01 Order name: Blood Culture [facility] 11/06 18:02 Order name: Troponin High Sensitivity; Complete Time: 19:40 [facility] 11/06 18:02 Order name: BNP; Complete Time: 19:40 [facility] 11/06 18:02 Order name: COVID-19/FLU A+B (Document "Date of Onset" if Symptomatic); Complete Time: [facility] 19:20 11/06 18:21 Order name: Glucose, Ancillary Testing; Complete Time: 19:10 [facility] 11/06 20:29 Order name: Procalcitonin; Complete Time: 22:58 [facility] 11/06 17:59 Order name: Accucheck; Complete Time: 18:43 [facility] 11/06 17:59 Order name: Cardiac monitoring; Complete Time: 18:07 [facility] 11/06 17:59 Order name: EKG - Nurse/Tech; Complete Time: 18:07 [facility] 11/06 17:59 Order name: IV Saline Lock - Large Bore; Complete Time: 18:07 [facility] 11/06 17:59 Order name: Labs collected and sent; Complete Time: 18:07 [facility] 11/06 17:59 Order name: O2 Sat Monitoring; Complete Time: 18:07 [facility] 11/06 17:59 Order name: Chest Single View XRAY; Complete Time: 19:46 [facility] 11/06 21:13 Order name: CT Abd/Pelvis - Without Contrast; Complete Time: 22:44 la1 Administered Medications: 18:03 CANCELLED (Duplicate Order): NS 0.9% 500 ml IV at bolus once 18:43 Drug: NS 0.9% 500 ml Route: IV; Rate: 999 bolus; Site: left forearm; jg9 20:49 Dru grams of (Cefepime 1 grams, NS 0.9% 100 ml) Route: IVPB; Rate: 200 ml/hr; tk1 Infused Over: 30 mins; Site: left forearm; Delivery: Primary tubing; 22:45 Follow up: IV Status: Completed infusion; IV Intake: 100ml tk1 22:45 Follow up: Response: No adverse reaction tk1 21:34 Drug: NS 0.9% 250 ml Route: IV; Rate: bolus; Infused Over: 1 hrs; Site: left forearm; tk1 Delivery: Primary tubing; 22:45 Follow up: Response: No adverse reaction; IV Status: Completed infusion tk1 22:53 Follow up: IV Status: Completed infusion; IV Intake: 250ml tk1 23:03 Dru mg of (Flagyl (metroNIDAZOLE) 500 mg, NS 0.9% 100 ml) Volume: 100 ml; Route: tk1 IVPB; Rate: 200 ml/hr; Infused Over: 30 mins; Site: left forearm; Delivery: Primary tubing; 11/07 01:43 Follow up: IV Status: Completed infusion; IV Intake: 100ml tk1 01:43 Follow up: Response: No adverse reaction tk1 11/06 23:16 Drug: NS 0.9% 500 ml Route: IV; Rate: bolus; Infused Over: 30 mins; Site: left forearm; tk1 Delivery: Primary tubing; 11/07 00:16 Follow up: Response: No adverse reaction; IV Status: Completed infusion; IV Intake: tk1 500ml Disposition Summary: 11/06/21 20:25 Hospitalization Ordered Provider: Prince Jennifer kdr Condition: Fair kdr Problem: new kdr Symptoms: have improved kdr Bed/Room Type: Standard kdr Hospitalization Status: Inpatient Admission(11/06/21 22:48) la1 Location: Intensive Care Unit(11/06/21 22:48) la1 Room Assignment: 3-(11/07/21 00:22) cg Diagnosis - Syncope Near kdr - Weakness kdr - Other hypotension kdr Forms: - Medication Reconciliation Form kdr - SBAR form kdr Signatures: Dispatcher [employer] EDTres Mcintyre MD MD kdr Rigoberto Hawthorne FNP-C SUTURE GAUGER-ClaTanya Hays RN RN cg Arlen Stoll RN RN tw2 Crystal Nino RN RN jg9 Saba Robles tk1 Andres Butler MD MD jr11 Corrections: (The following items were deleted from the chart) 11/06 18:03 18:02 NS 0.9% 500 ml IV at bolus once ordered. jr11 jr11 22:48 20:25 Observation kdr la1 22:48 20:25 Telemetry/MedSurg (observation) kdr la1 22:48 20:25 kdr la1 11/07 00:22 11/06 22:48 la1 cg
--- NOTE | 2021-11-06 20:25 | ER ---
Nurse's Notes [facility] Name: Jarod Kraft Age: 66 yrs Sex: Male : 1955 Arrival Date: 11/06/2021 Time: 17:35 Bed 15 Private MD: Diagnosis: Syncope Near;Weakness;Other hypotension Presentation: 11/06 17:43 Chief complaint: Patient's son or daughter states: the past 3 days he felt weak. his dr kayy said that he has a flutter in his pacemaker but we got an appt. he has been real fragile like. he fell 2 days ago out of the bed and hit the floor. yesterday we got him some fish, was eating, then i came back in and he had thrown up everywhere and his face was in the plate. also having BM accidents. diarrhea. Coronavirus screen: At this time, the client does not indicate any symptoms associated with coronavirus-19. Ebola Screen: Patient denies travel to an Ebola-affected area in the 21 days before illness onset. Initial Sepsis Screen: Does the patient meet any 2 criteria? Systolic BP < 90 mmHg. HR > 90 bpm. Yes Does the patient have a suspected source of infection? No. Patient's initial sepsis screen is negative. Risk Assessment: Do you want to hurt yourself or someone else? Patient reports no desire to harm self or others. Onset of symptoms was November 06, 2021. 17:43 Method Of Arrival: Wheelchair tw2 17:43 Acuity: ASAF 2 tw2 Triage Assessment: 17:48 General: Appears in no apparent distress. Behavior is calm, cooperative, appropriate tw2 for age, Reports fatigue for >3 days. Pain: Denies pain. GI: Reports diarrhea. 17:48 Cardiovascular: Dialysis shunt: in the right arm. tw2 Historical: - Allergies: 17:46 Cipro; tw2 17:46 Erythromycin; tw2 - Home Meds: 17:46 glipizide 10 mg Oral tab 1 tab 2 times per day [Active]; atorvastatin 40 mg Oral tab 1 tw2 tab once daily [Active]; Coreg 3.125 mg Oral tab 1 tab every 12 hours [Active]; amlodipine 10 mg tab 1 tab once daily [Active]; clonidine HCl 0.2 mg Oral tab 1 tab 3 times per day [Active]; carvedilol 25 mg Oral tab 1 tab 2 times per day [Active]; isosorbide mononitrate 30 mg Oral Tb24 1 tab once daily [Active]; Levemir 100 unit/mL subcutaneous soln [Active]; Lantus 20 units Sub-Q daily [Active]; levetiracetam 500 mg Oral tab 1 tab 2 times per day [Active]; Lyrica 50 mg Oral 3 times per day [Active]; Eliquis 2.5 mg Oral tab 1 tab 2 times per day [Active]; furosemide 40 mg Oral tab 1 tab once daily [Active]; metformin 1,000 mg Oral tab 1 tab 2 times per day [Active]; Micardis 80 mg Oral tab 1 tab once daily [Active]; Norvasc 10 mg Oral tab 1 tab once daily [Active]; Xarelto 20 mg Oral tab 1 tab once daily [Active]; - PMHx: 17:46 Diabetes - IDDM; ESRD- M/W/F; Hypertension; Irregular heart rate; Pacemaker; High tw2 Cholesterol; CHF; - PSHx: 17:46 Cholecystectomy; Dialysis Catheter; pacemaker; tw2 - Immunization history:: Client reports receiving the 2nd dose of the Covid vaccine. - Social history:: Smoking status: . Screenin:41 Abuse screen: Denies threats or abuse. Nutritional screening: No deficits noted. tw2 Tuberculosis screening: No symptoms or risk factors identified. Fall Risk Secondary diagnosis (15 points) impaired mobility. Assessment: 18:43 Reassessment: No changes from previously documented assessment. jg9 19:26 General: Appears in no apparent distress. comfortable, obese, unkempt, well developed, tk1 well nourished, Behavior is calm, cooperative, appropriate for age. Pain: Denies pain. Neuro: Level of Consciousness is awake, alert, obeys commands, Oriented to person, place, time, situation, Appropriate for age Animal Care Attendant are equal bilaterally Weakness Gait is steady, Speech is normal, Facial symmetry appears normal. Cardiovascular: Capillary refill < 3 seconds is brisk in bilateral fingers. Respiratory: Airway is patent Respiratory effort is even, unlabored, Respiratory pattern is regular, symmetrical, Breath sounds are clear bilaterally. GI: Abdomen is round non-distended, obese, Stools are reported to be loose, Last BM was November 06, 2021. Bowel sounds present X 4 quads. Abd is soft and non tender X 4 quads. : Reports Urinates very little. EENT: No deficits noted. No signs and/or symptoms were reported regarding the EENT system. Derm: No deficits noted. No signs and/or symptoms reported regarding the dermatologic system. Musculoskeletal: No deficits noted. No signs and/or symptoms reported regarding the musculoskeletal system. 20:30 Reassessment: No changes from previously documented assessment. Patient is alert, tk1 oriented x 3, equal unlabored respirations, skin warm/dry/pink. 21:30 Reassessment: [place] to [facility] Another loose stool noted. Steady gait with transfer tk1 to and from [facility] 22:47 Reassessment: No changes from previously documented assessment. Patient and/or family tk1 updated on plan of care and expected duration. Pain level reassessed. Patient is alert, oriented x 3, equal unlabored respirations, skin warm/dry/pink. Patient denies pain at this time. 11/07 00:05 Reassessment: No changes from previously documented assessment. Patient and/or family tk1 updated on plan of care and expected duration. Pain level reassessed. Patient is alert, oriented x 3, equal unlabored respirations, skin warm/dry/pink. Patient denies pain at this time. 01:00 Reassessment: No changes from previously documented assessment. Patient and/or family tk1 updated on plan of care and expected duration. Pain level reassessed. Patient is alert, oriented x 3, equal unlabored respirations, skin warm/dry/pink. Patient denies pain at this time. Vital Signs: 11/06 17:43 BP 84 / 56; Pulse 103; Resp 18; Temp 97.7(TE); Pulse Ox 95% on R/A; Weight 101.15 kg tw2 (R); Pain 0/10; 18:07 BP 92 / 60; Pulse 66; Resp 16 S; Pulse Ox 96% on R/A; jg9 18:15 BP 88 / 61; Pulse 78; Resp 15 S; Pulse Ox 94% on R/A; jg9 18:30 BP 75 / 57; Pulse 64; Resp 14; Pulse Ox 94% on R/A; jg9 19:30 BP 90 / 72 LA Supine (auto/reg); Pulse 63 MON; Resp 20 S; Temp 97.8; Pulse Ox 96% on tk1 R/A; Pain 0/10; 20:30 BP 84 / 61 LA Supine (auto/reg); Pulse 62 MON; Resp 18 S; Temp 98(O); Pulse Ox 92% on tk1 R/A; Pain 0/10; 21:30 BP 77 / 50 LA Supine (auto/reg); Pulse 60 MON; Resp 18 S; Pulse Ox 93% on R/A; Pain tk1 0/10; 22:30 BP 76 / 57 LA Supine (auto/reg); Pulse 60 MON; Resp 18 S; Pulse Ox 93% on R/A; Pain tk1 0/10; 23:00 BP 85 / 52 LA Supine (auto/reg); Pulse 59 MON; Resp 20 S; Temp 97.5(O); Pulse Ox 97% on tk1 R/A; Pain 0/10; 23:30 BP 80 / 63 LA Supine (auto/reg); Pulse 64 MON; Resp 20; Pulse Ox 94% on R/A; Pain 0/10; tk1 18 00:00 BP 83 / 54 LA Supine (auto/reg); Pulse 79 MON; Resp 18 S; Pulse Ox 95% on R/A; Pain tk1 0/10; 00:30 BP 94 / 64 LA Supine (auto/reg); Pulse 60 MON; Resp 20 S; Pulse Ox 94% on R/A; Pain tk1 0/10; 01:00 BP 105 / 72 LA Supine (auto/reg); Pulse 63 MON; Resp 20; Pulse Ox 95% ; Pain 2/10; tk1 Vitals: 11/06 19:26 Cardiac Rhythm Assessment Paced. tk1 ED Course: 17:35 Patient arrived in ED. ds1 17:46 Triage completed. tw2 17:48 Arm band placed on. tw2 17:50 Andres Butler MD is Attending Physician. jr11 17:50 Patient has correct armband on for positive identification. Bed in low position. Call mh5 light in reach. Side rails up X 1. Adult w/ patient. Warm blanket given. indian blanket weaver on. Pulse ox on. NIBP on. 17:55 Inserted saline lock: 20 gauge in right forearm, using aseptic technique. Blood jg9 collected. 18:07 Crystal Nino, RN is Primary Nurse. jg9 18:43 Blood Culture Adult (2) Sent. jg9 18:53 Chest Single View XRAY In Process Unspecified. EDMS 19:19 Attending Physician role handed off by Andres Butler MD kdr 19:19 Tres Acevedo MD is Attending Physician. kdr 19:30 Patient has correct armband on for positive identification. Bed in low position. Call tk1 light in reach. Side rails up X 1. indian blanket weaver on. Pulse ox on. NIBP on. 19:30 No provider procedures requiring assistance completed. IV is patent, is intact, with tk1 fluids infusing freely. 20:24 Prince Rodriguez MD is Hospitalizing Provider. kdr 22:00 CT Abd/Pelvis - Without Contrast In Process Unspecified. EDMS 03 01:44 Patient admitted, IV remains in place. tk1 Administered Medications: 11/06 18:03 CANCELLED (Duplicate Order): NS 0.9% 500 ml IV at bolus once jr11 18:43 Drug: NS 0.9% 500 ml Route: IV; Rate: 999 bolus; Site: left forearm; jg9 20:49 Dru grams of (Cefepime 1 grams, NS 0.9% 100 ml) Route: IVPB; Rate: 200 ml/hr; tk1 Infused Over: 30 mins; Site: left forearm; Delivery: Primary tubing; 22:45 Follow up: IV Status: Completed infusion; IV Intake: 100ml tk1 22:45 Follow up: Response: No adverse reaction tk1 21:34 Drug: NS 0.9% 250 ml Route: IV; Rate: bolus; Infused Over: 1 hrs; Site: left forearm; tk1 Delivery: Primary tubing; 22:45 Follow up: Response: No adverse reaction; IV Status: Completed infusion tk1 22:53 Follow up: IV Status: Completed infusion; IV Intake: 250ml tk1 23:03 Dru mg of (Flagyl (metroNIDAZOLE) 500 mg, NS 0.9% 100 ml) Volume: 100 ml; Route: tk1 IVPB; Rate: 200 ml/hr; Infused Over: 30 mins; Site: left forearm; Delivery: Primary tubing; 11/07 01:43 Follow up: IV Status: Completed infusion; IV Intake: 100ml tk1 01:43 Follow up: Response: No adverse reaction tk1 11/06 23:16 Drug: NS 0.9% 500 ml Route: IV; Rate: bolus; Infused Over: 30 mins; Site: left forearm; tk1 Delivery: Primary tubing; 11/07 00:16 Follow up: Response: No adverse reaction; IV Status: Completed infusion; IV Intake: tk1 500ml Intake: 11/06 22:45 IV: 100ml; Total: 100ml. tk1 22:53 IV: 250ml; Total: 350ml. tk1 11/07 00:16 IV: 500ml; Total: 850ml. tk1 01:43 IV: 100ml; Total: 950ml. tk1 Outcome: 11/06 20:25 Decision to Hospitalize by Provider. kdr 11/07 01:23 Admitted to ICU accompanied by nurse, via stretcher, room 3, with chart, Report called tk1 to SHARRON Rodriguez Condition: stable Instructed on the need for admit. 01:59 Patient left the ED. bb Signatures: Dispatcher [employer] EDMS Tres Acevedo MD MD kdr Meme Collazo ds1 Velma Castro, RN RN bb Arlen Stoll RN RN tw2 Makeda Kraft Jennifer, RN RN jg9 Saba Robles tk1 Andres Butler MD MD jr11
[2021-11-06] MEDS ORDERED: CEFEPIME 1 GM/VIAL ONE (20:49)
[2021-11-06] MEDS ORDERED: NA CHLORIDE 0.9% 100 ML IV ONE (20:50)
--- NOTE | 2021-11-06 21:40 | P.HP ---
Certification for Inpatient Patient admitted to: Inpatient With expected LOS: >2 Midnights Patient will require the following post-hospital care: None Practitioner: I am a practitioner with admitting privileges, knowledge of patient current condition, hospital course, and medical plan of care. Services: Services provided to patient in accordance with Admission requirements found in Title 42 Section 412.3 of the Code of Federal Regulations Patient History Date of Service: 11/06/21 Reason for admission: Hypotension, weakness, syncope History of Present Illness: 66-year-old male with history of ESRD on HD MWF, chronic systolic congestive heart failure/pulmonary hypertension, diabetes diabetes insulin- dependent, hypertension, hyperlipidemia who has a pacemaker in place presented to the emergency department for malaise, general weakness, low blood pressure and having a syncopal episode yesterday. Patient also reports that he has been having diarrhea, frequent soft stools. Upon arrival to the emergency department patient's blood pressure was in the 80s to 90 systolic initial heart rate was 103 code sepsis was called at that time patient was given 500 cc NS bolus blood pressure did improve to around 90/70 heart rate also improved to 63. Patient noted to have mild leukocytosis with white blood cell count 13.9 although his white blood cell count has been elevated for most of his visits to this hospital, his chest x-ray is unremarkable I have ordered a CT of his abdomen pelvis noncontrast to further evaluate his frequent diarrhea/incontinence as well as nausea and an episode of vomiting yesterday. Patient reports that his stool is soft but not watery, reports 6-7 bowel movements per day the past couple days. Believe pressure is more likely related to volume depletion than sepsis but will need to cover with antibiotics given patient's hypotension, elevated white blood cell count. Patient was started on cefepime in the ER will consider adding Flagyl as well. Getting additional 250 cc NS bolus at this time lactic acid was 1.5. Allergies ciprofloxacin Allergy (Severe, Verified 03/22/20 05:24) Hives/Rash erythromycin base Allergy (Intermediate, Verified 03/22/20 05:24) GI upset/burning Home Medications: levETIRAcetam [Levetiracetam] 500 mg PO BID 09/11/16 Atorvastatin Calcium 40 mg PO BEDTIME 06/30/19 Isosorbide Mononitrate [Isosorbide Mononitrate ER] 30 mg PO DAILY 09/09/19 allopurinoL [Zyloprim*] 100 mg PO DAILY #30 tab 03/25/20 Pantoprazole [Protonix Tab*] 40 mg PO BIDAC #60 tab 05/15/20 Amlodipine [Norvasc*] 10 mg PO DAILY 08/18/21 Apixaban [Eliquis *] 2.5 mg PO BID 08/18/21 Aspirin [Jeff Chewable Aspirin] 81 mg PO DAILY 08/18/21 Calcium Carbonate [Tums Ultra] 400 mg PO TIDWM 08/18/21 Carvedilol [Coreg] 25 mg PO BID 08/18/21 Furosemide [Lasix] 40 mg PO Q12H 08/18/21 Insulin Detemir [Levemir] 27 units SQ BEDTIME 08/18/21 Sevelamer Carbonate [Renvela*] 1,600 mg PO TIDWM 08/18/21 Sitagliptin Phosphate [Januvia*] 25 mg PO BEDTIME 08/18/21 - Past Medical/Surgical History Diabetic: Yes -: Hypertension -: Diabetes mellitus type 2, insulin-dependent -: CAD with pacemaker -: Hyperlipidemia -: Diabetic neuropathy -: Chronic systolic/diastolic congestive heart failure -: ESRD on HD MWF -: Pacemaker placement -: Cholecystectomy Psychosocial/ Personal History: Patient is - Family History Father -: Heart disease Mother -: Diabetes - Social History Smoking Status: Never smoker Alcohol use: No CD- Drugs: No Caffeine use: Yes Place of Residence: Home Review of Systems 10-point ROS is otherwise unremarkable Gastrointestinal: Nausea, Vomiting, Diarrhea, Other (Fecal incontinence) Genitourinary: Other (Patient denies urinary symptoms makes very little urine) Physical Examination - Physical Exam General: Alert, In no apparent distress, Oriented x3, Obese HEENT: Atraumatic, PERRLA, Mucous membr. moist/pink, EOMI, Sclerae nonicteric Neck: Supple, 2+ carotid pulse no bruit, No LAD, Without JVD or thyroid abnorma lity Respiratory: Clear to auscultation bilaterally, Normal air movement Cardiovascular: Regular rate/rhythm, Normal S1 S2 Gastrointestinal: Normal bowel sounds, No tenderness Musculoskeletal: No tenderness Integumentary: No rashes Neurological: Normal speech, Normal strength at 5/5 x4 extr, Normal tone, Normal affect Lymphatics: No axilla or inguinal lymphadenopathy - Studies Laboratory Data (last 24 hrs) 11/06/21 18:04: PT 21.2 H, INR 1.90, APTT 47.3 H 11/06/21 18:04: Sodium 137, Potassium 3.7, BUN 69 H, Creatinine 8.79 H*, Glucose 106, Total Bilirubin 0.4, AST 44 H, ALT 72, Alkaline Phosphatase 100 11/06/21 18:04: WBC 13.90 H, Hgb 11.0 L, Hct 34.6 L, Plt Count 238 Assessment and Plan - Plan Assessment: Severe sepsis versus septic shock secondary to diverticulitis ESRD on HD MWF Chronic systolic congestive heart failure with pacemaker Diabetes mellitus type 2insulin-dependent Hypertension Hyperlipidemia Plan: Severe sepsis versus septic shock secondary to diverticulitis: Patient was given total of 750 NS bolus in the emergency department blood pressure remained low at 75/56, I called and discussed case with nephrology as patient is on ESRD/HD who recommended additional 500 cc NS bolus followed by vasopressor therapy if necessary to maintain blood pressure. CT revealed mild diverticulitis, 13,000 white count although lactic acid is normal at 1.5. Patient started on cefepime/Flagyl, will admit to the ICU given low blood pressure. Nephrology consulted. ESRD on HD MWF: Nephrology consulted, did complete dialysis on Wednesday. Chronic systolic congestive heart failure with pacemaker: Monitor on telemetry, pacemaker was interrogated in the emergency department, report available for review it did show the patient has had multiple episodes of an atrial arrhythmia but has not required any shocks, pacemaker reportedly functioning okay according to tech. Diabetes mellitus type 2insulin-dependent: ACH S Accu-Chek, sliding scale insulin. Hypertension: Currently with hypotension, hold antihypertensive agents. Restart when appropriate. Hyperlipidemia: Continue home medications DVT PPX: Heparin Code status:full Discharge Plan: Home Plan to discharge in: 48 Hours - Advance Directives Does patient have a Living Will: No Does patient have a Durable POA for Healthcare: No - Code Status/Comfort Care Code Status Assessed: Yes (full code) Critical Care: No Time Spent Managing Pts Care (In Minutes): 55
--- NOTE | 2021-11-06 22:24 | RAD REPORT ---
EXAM DESCRIPTION: CT - Abdomen Pelvis Wo Contrast - 11/06/2021 10:01 pm CLINICAL HISTORY: diarrhea, nausea/vomiting COMPARISON: Abdomen Pelvis Wo Contrast dated 09/08/2019 TECHNIQUE: Axial [address] imaging of the abdomen and pelvis was performed without IV contrast. No IV contrast was given because of allergy, abnormal renal function, patient refusal or physician re quest. No oral contrast administered. All CT scans are performed using dose optimization technique as appropriate and may include automated exposure control or mA/KV adjustment according to patient size. FINDINGS: Cardiomegaly is present with small pericardial effusion up to 10 mm in thickness. This is new from the comparison study. There is loculated pleural effusion and pleural thickening in the post erior lateral gutter on the left. This is smaller in size than seen on the comparison study. Liver size is within normal range with no focal finding on noncontrast imaging. Subtle nodularity to the liver capsule noted. Cirrhosis or hepatic parenchymal disease are possible. No pancreas or spleen acute finding. Gallbladder is absent. No biliary tree dilatation. No hydronephrosis or suspicious renal mass. No significant adrenal finding. Isodense renal masses an d pyelonephritis cannot be excluded in the absence of IV contrast. Urinary bladder is fully contracte d limiting assessment. No gastric dilatation or gastric wall thickening. No acute small bowel finding. Appendix is normal. P atient has a mild loya diverticulosis pattern with prominent diverticulosis in the sigmoid portion. Th e sigmoid is quite tortuous and redundant. In the mid sigmoid colon which lie is in the central abdom en there is slight wall thickening and congestion. Trace amount of stranding is seen in the fat. No s igmoid mass lesion. No free air, free fluid or pneumatosis. No mass or bulky lymphadenopathy. No omental thickening. A 3.3 centimeter fat only umbilical hernia is present. A 4.3 centimeter supraumbilical ventral hernia s present also containing only fat. There is slight congestion to the fatty tissue of the supraumbili ilda hernia. No suspicious bony findings. Prominent disc and vertebral body degenerative changes are present. Enedina ent has severe facet joint degenerative change. IMPRESSION: A minimal acute diverticulitis is present within the very tortuous and redundant sigmoid colon with the involved portion of the colon located in the midline lower abdomen. There is no free air, abscess or other surgically emergent finding. Cardiomegaly with 10 millimeter thick pericardial effusion new from the 2019 comparison. The loculate d pleural collection and pleural thickening in the posterolateral left lower chest has reduced in siz e since comparison. Umbilical and supraumbilical hernias containing only fat. The supraumbilical hernia has a slightly co ngested appearance to the herniated fat. Full assessment is limited is the absence of IV contrast.
[2021-11-06] MEDS ORDERED: METRONIDAZOLE 500mg IVPB 500 MG/100 ML BAG IV ONE (23:02)
[2021-11-06] MEDS ORDERED: NA CHLORIDE 0.9% 500 ML ONE (23:11)
[2021-11-07] MEDS ORDERED: ONDANSETRON 4 MG/2 ML VIAL IV PRN (01:39)
[2021-11-07 05:03] LABS: Absolute Lymphocytes (CBC) 1.3 K/uL (0.7-4.9); Hematocrit 33.2 % (39.6-49.0); Lymphocytes % 11.4 % (15.3-44.8); MPV 7.1 fL (7.6-11.3)
[2021-11-07 06:30] LABS: Albumin 2.5 g/dL (3.4-5.0); Bilirubin Total 0.5 mg/dL (0.2-1.0); Potassium 3.7 mmol/L (3.5-5.1); Protein, Total 6.6 g/dL (6.4-8.2)
[2021-11-07] MEDS ORDERED: SIMETHICONE 80 MG TAB PO PRN (06:37)
[2021-11-07] MEDS: INSULIN -REGULAR HUMAN 50 UNIT/0.5 ML ML SQ SCH ×4 (07:30→21:00)
[2021-11-07] MEDS: PANTOPRAZOLE 40MG TABLET PO SCH ×2 (08:06→16:41)
[2021-11-07] MEDS: ASPIRIN 81 MG CHEWABLE TABLET PO SCH (08:06)
[2021-11-07] MEDS: levETIRAcetam 500 MG TAB PO SCH ×2 (08:06→21:05)
[2021-11-07] MEDS: APIXABAN 5 MG TABLET PO SCH (08:06)
[2021-11-07] MEDS: METRONIDAZOLE 500mg IVPB 500 MG/100 ML BAG IV SCH ×2 (08:07→16:41)
[2021-11-07] MEDS: CEFEPIME 1 GM in NA CHLORIDE 0.9% 100 ML IV SCH (08:07)
[2021-11-07] MEDS ORDERED: NA CHLORIDE 0.9% 1,000 ML IV ONE (09:13)
[2021-11-07] MEDS: NA CHLORIDE 0.9% 1,000 ML IV SCH (09:21)
--- NOTE | 2021-11-07 09:29 | P.PN ---
Subjective Date of Service: 11/07/21 Chief Complaint: Hypotension, weakness, syncope Subjective: Improving (Patient is in the unit for hemodynamic monitoring. Mildly hypotensive.) Physical Examination - Vital Signs Temperature: 98.0 F Blood Pressure: 95/67 Pulse: 72 Respirations: 10 Pulse Ox (%): 100 - Physical Exam General: Alert, In no apparent distress, Cooperative HEENT: Atraumatic, Normocephalic Neck: Supple Respiratory: Clear to auscultation bilaterally, Normal air movement Cardiovascular: No edema, Normal pulses, Regular rate/rhythm, Normal S1 S2, Other (R AVF) Musculoskeletal: No clubbing, No swelling, No contractures Neurological: Normal speech, Normal affect - Studies Laboratory Data (last 24 hrs) 11/06/21 18:04: PT 21.2 H, INR 1.90, APTT 47.3 H 11/06/21 18:04: Sodium 137, Potassium 3.7, BUN 69 H, Creatinine 8.79 H*, Glucose 106, Total Bilirubin 0.4, AST 44 H, ALT 72, Alkaline Phosphatase 100 11/06/21 18:04: WBC 13.90 H, Hgb 11.0 L, Hct 34.6 L, Plt Count 238 Assessment And Plan - Current Problems (Diagnosis) (1) Sepsis Current Visit: Yes Status: Acute (2) Diverticulitis Current Visit: Yes Status: Acute (3) Abdominal pain Current Visit: No Status: Acute (4) ESRD (end stage renal disease) Current Visit: No Status: Acute (5) Severe pulmonary arterial systolic hypertension Current Visit: No Status: Acute (6) CKD (chronic kidney disease) stage 3, GFR 30-59 ml/min Onset Date: 09/14/16 Current Visit: No Status: Chronic (7) Diabetes type 2, controlled Onset Date: 09/14/16 Current Visit: No Status: Chronic Qualifiers: (8) History of permanent cardiac pacemaker placement Current Visit: No Status: Chronic (9) Neuropathy Onset Date: 09/14/16 Current Visit: No Status: Chronic Physician Review Additional Text: 11/07/21 09:24 Assessment Patient is a 66 year old male with a PMH of HTN, DM-2, ESRD and chronic systolic CHF. He is currently benign treated for sepsis after he presented with abdominal pain, generalized weakness and diarrhea. He reportedly syncopized. CT A/P shows sigmoid diverticulitis. He is in the unit for hemodynamic monitoring Sepsis, possibly septic shock Diverticulitis ESRD Syncope HTN DM-2 PLAN: Will give a bolus of NS Monitor BP. May require a central line for vasopressors Continue broad spectrum abx Follow up blood cx No HD today. No urgent indications DVT ppx Will stay here for 2-3 days
[2021-11-07] MEDS ORDERED: 0.9 % SODIUM CHLORIDE 20 ML ONE (12:44)
[2021-11-07 12:47] LABS: C.diff Antigen/Toxin Ag neg : Tox neg (NEG : NEG)
--- NOTE | 2021-11-07 13:58 | P.CNS ---
Date of Consult: 11/07/21 PC: I was asked to place a central line on this dialysis patient. HPC: Patient apparently was admitted to the hospital. During this time he was found to have some abdominal pain and there was a question of sepsis. Has been started on IV antibiotics. He says at the current time he has no complaints. He also states that the last few times he has been dialysis his blood pressures have been low. PSHx: Previous surgeries for dialysis access, has a pacemaker left subclavian PMHx: Coronary artery disease, end-stage renal disease, COPD Social Hx: Allergic to Cipro, erythromycin base Sys R: Currently states he feels pretty well. Just finished his lunch. While dictating this note, patient was up at the bedside commode. O/E: Awake alert appropriate HEENT: Within normal limits Chest: Has a pacemaker on the left chest Abd: Soft nontender at the moment [place]: Intact Data: Slightly elevated white cell count, CT scan shows mild diverticulitis Impression: End-stage renal disease with diverticulitis being treated with antibiotics. Plan: Patient does not appear septic at the moment. While he is running a low blood pressure, he does have I adequate IV access for fluid resuscitation. His dialysis graft is also working in position. I will hold on placing the line at the current time. Should anything change I am available for the next 72 hours. Please feel free to call.
[2021-11-07] MEDS: INSULIN GLARGINE 100 UNIT/ML SQ SCH (21:00)
[2021-11-07] MEDS: ATORVASTATIN 40 MG TAB PO SCH (21:05)
[2021-11-08] MEDS: METRONIDAZOLE 500mg IVPB 500 MG/100 ML BAG IV SCH ×3 (01:51→17:43)
[2021-11-08] MEDS: NA CHLORIDE 0.9% 1,000 ML IV SCH ×2 (01:55→13:35)
--- NOTE | 2021-11-08 03:31 | CON ---
Date of Consultation: 11/07/2021 Chief Complaint: End-stage renal disease on hemodialysis, severe hypotension, diarrhea. History Of Present Illness: The patient is a 66-year-old man with history of end-stage renal disease , hypertension, anemia in CKD, renal osteodystrophy, history of coronary artery disease, and angina. The patient is on isosorbide. He has history of diabetic kidney disease, diabetic neuropathy and ne phropathy. He presented to the hospital because of syncope, became unresponsive, collapsed. The pat doug is admitted to ICU for syncope and hypotension. He was started on IV fluids. Blood pressure so mewhat improved in response to IV fluids. The patient denies chest pain. Denies headache or vision changes. There was no . The patient has history of end-stage renal disease and is underg oing dialysis 3 times per week on Wednesday, Wednesday, and Wednesday. Review of Systems: General: Complains of generalized weakness. Has history of syncope, presyncope, dizziness, hypotens eladia episode. GI: Denies nausea or vomiting. : Denies dysuria or hematuria. Musculoskeletal: Denies muscle aches or joint swelling. All other systems reviewed and all are negative. Past Medical History: Hypertension, cardiac arrhythmia, pacemaker, cholesterol problems, congestive heart failure, cholecystectomy, dialysis catheter placement, AV fistula. Social History: Denies tobacco, alcohol, or illicit drugs. Physical Examination: General: The patient is awake, alert. Vital Signs: Blood pressure 84/54, heart rate 103, temperature 97.7, SpO2 of 95%. Eyes: Anicteric sclerae. EOMI. Ears, Nose, Mouth, and Throat: Oral mucosa moist. No pallor. Neck: Supple. No bruits. Lungs: Diminished breath sounds at bases. Heart: S1, S2. Abdomen: Soft, benign. Extremities: Slight edema. Laboratory Work: Sodium 139, potassium 3.7, chloride 105, CO2 of 21, BUN 75, creatinine 9.08, glucos e 118, albumin 2.5. Total protein 6.6. Procalcitonin 6.7 calcium 7.6. Lactic acid 0.8. Impression And Plan: 1.Hypotension. The patient will continue broad-spectrum antibiotics for diverticulitis. The patien t was found to have pericardial effusion and pleural effusion. The patient will have Cardiology cons ultation and history of congestive heart failure with coronary artery disease. Monitor tr oponin level. 2.End-stage renal disease. Plan dialysis when blood pressure is stable. The patient may require pr essors midodrine and hold blood pressure medication. 3.Anemia in chronic kidney disease. Monitor hemoglobin level. Adjust treatment according to lab re sult. Hemoglobin level is ranging from 10.5 to 11. 4.Renal osteodystrophy. Currently, the patient is on limited intake. Binders on hold. EB/MODL Voice ID: [id number] Report ID: [id number]
[2021-11-08 05:45] LABS: Absolute Lymphocytes (CBC) 1.3 K/uL (0.7-4.9); Hematocrit 32.7 % (39.6-49.0); Lymphocytes % 12.3 % (15.3-44.8); MPV 7.4 fL (7.6-11.3); RBC Red Blood Cell Count 3.37 M/uL (4.33-5.43)
[2021-11-08 06:12] LABS: Albumin 2.3 g/dL (3.4-5.0); Bilirubin Total 0.4 mg/dL (0.2-1.0); Potassium 3.7 mmol/L (3.5-5.1); Protein, Total 6.4 g/dL (6.4-8.2)
[2021-11-08] MEDS: INSULIN -REGULAR HUMAN 50 UNIT/0.5 ML ML SQ SCH ×4 (07:30→21:00)
--- NOTE | 2021-11-08 08:07 | P.PN ---
Subjective Date of Service: 11/08/21 Chief Complaint: Hypotension, weakness, syncope Subjective: Improving (Patient's BP continues to hold up.) Physical Examination - Vital Signs Temperature: 97.4 F Blood Pressure: 89/63 Pulse: 64 Respirations: 13 Pulse Ox (%): 93 - Physical Exam General: In no apparent distress, Cooperative HEENT: Atraumatic, Normocephalic Neck: Supple Respiratory: Clear to auscultation bilaterally, Normal air movement Cardiovascular: No edema, Regular rate/rhythm, Normal S1 S2, Other (RUE AVF) Musculoskeletal: No clubbing, No swelling, No contractures Neurological: Normal speech, Normal affect Assessment And Plan - Current Problems (Diagnosis) (1) Sepsis Current Visit: Yes Status: Acute (2) Diverticulitis Current Visit: Yes Status: Acute (3) Abdominal pain Current Visit: No Status: Acute (4) ESRD (end stage renal disease) Current Visit: No Status: Acute (5) Severe pulmonary arterial systolic hypertension Current Visit: No Status: Acute (6) CKD (chronic kidney disease) stage 3, GFR 30-59 ml/min Onset Date: 09/14/16 Current Visit: No Status: Chronic (7) Diabetes type 2, controlled Onset Date: 09/14/16 Current Visit: No Status: Chronic Qualifiers: (8) History of permanent cardiac pacemaker placement Current Visit: No Status: Chronic (9) Neuropathy Onset Date: 09/14/16 Current Visit: No Status: Chronic Physician Review Additional Text: Assessment Patient is a 66 year old male with a PMH of HTN, DM-2, ESRD and chronic systolic CHF. He is currently benign treated for sepsis after he presented with abdominal pain, generalized weakness and diarrhea. He reportedly syncopized. CT A/P shows sigmoid diverticulitis. He is in the unit for hemodynamic monitoring Sepsis, possibly septic shock Diverticulitis ESRD Syncope HTN DM-2 PLAN: Patient has responded to IVF. BP continues to be borderline No signs of shock He will be dialyzed today. We'll see how this affects his BP Continue broad spectrum abx Follow up blood cx DVT ppx Will most likely be discharged tomorrow
[2021-11-08] MEDS: PANTOPRAZOLE 40MG TABLET PO SCH ×2 (08:16→17:43)
[2021-11-08] MEDS: ASPIRIN 81 MG CHEWABLE TABLET PO SCH (08:16)
[2021-11-08] MEDS: APIXABAN 5 MG TABLET PO SCH (08:16)
[2021-11-08] MEDS: CEFEPIME 1 GM in NA CHLORIDE 0.9% 100 ML IV SCH (08:16)
[2021-11-08] MEDS: levETIRAcetam 500 MG TAB PO SCH ×2 (08:22→20:55)
[2021-11-08] MEDS ORDERED: MIDODRINE HCL 5 MG TABLET PO SCH (09:00)
[2021-11-08] MEDS ORDERED: MIDODRINE HCL 5 MG TABLET PO ONE (10:00)
[2021-11-08] MEDS ORDERED: MIDODRINE HCL 5 MG TABLET PO PRN (10:14)
[2021-11-08] MEDS: MIDODRINE HCL 5 MG TABLET PO SCH ×2 (13:36→20:55)
[2021-11-08] MEDS ORDERED: EPOETIN 4,000 UNIT/ML VIAL IV SCH (17:45)
[2021-11-08] MEDS ORDERED: VANCOMYCIN 1 GM in NA CHLORIDE 0.9% 250 ML IVPB SCH (18:00)
[2021-11-08] MEDS ORDERED: VANCOMYCIN 2 GM in NA CHLORIDE 0.9% 500 ML IV ONE (18:00)
--- NOTE | 2021-11-08 19:16 | CON ---
Date of Consultation: 11/08/2021 Reason For Consultation: Pericardial effusion. History Of Present Illness: A -[id number]-[id number] male with history of end-stage renal disease, on h emodialysis; congestive heart failure; hypertension; diabetes; dyslipidemia; has a pacemaker in place ; came in with generalized weakness and fatigue, questionable syncopal episode. He has been having d iarrhea and soft stool lately. Blood pressure was on the low side in the 80s to 90s, responded very well to bolus and CT scan of the abdomen suggested pericardial effusion. Hence, I was consulted. I evaluated him by bedside. His heart rate is in the 60s and paced. The patient is not tachycardic, m aintaining good main perfusing pressure and doing well. Does not have any chest pain or shortness of breath. Past Medical History: As outlined above in the HPI. Medications: Refer reconciliation sheet for detailed list. Allergies: ERYTHROMYCIN AND CIPRO. Family History: No premature coronary artery disease or cancer. Social History: Does not smoke or drink. Does not use any drugs. Review of Systems: All systems reviewed and they were negative except above mentioned in the HPI. Physical Examination: Vital Signs: Reviewed. Head and Neck: Pupils are equal and reactive to light. Intact eye movements. No JVD. No cervical lymphadenopathy. Neck is supple. Thyroid is not enlarged. Lungs: Clear to auscultation bilaterally. No rhonchi, rales, or crackles. No accessory muscle use. Heart: Regular rate and rhythm. No extra sounds. Abdomen: Soft, nontender. Bowel sounds positive. No organomegaly. No masses or hernia. No rigidi ty or rebound. Extremities: No clubbing or cyanosis. Intact pulses. Skin: No rashes. Neurologic: Alert, awake, oriented x3. No acute focal deficits appreciated. Investigations: Hemoglobin is 10.6, platelet count is 203, and white blood cell count is 10.2. Crea tinine is 9.77 and troponin is negative. Assessment And Recommendation: 1.Pericardial effusion seen on CT that appears to be mild and the patient's hemodynamics do not supp ort tamponade physiology, however, recommend to obtain echocardiogram to father identify the pericard ial effusion and quantify it and further recommendations accordingly. 2.Near-syncope versus syncope likely due to hypotension from fluid loss from the diarrhea, responded very well to hydration. Thank you for the consult. MIMI Voice ID: [id number] Report ID: [id number]
[2021-11-08] MEDS: ATORVASTATIN 40 MG TAB PO SCH (20:55)
[2021-11-08] MEDS: INSULIN GLARGINE 100 UNIT/ML SQ SCH (21:00)
[2021-11-08 22:23] LABS: Urine Appearance CLOUDY (Clear); Urine Bilirubin NEGATIVE (Negative); Urine Blood 3+ (Negative); Urine Color YELLOW (Yellow); Urine Glucose NEGATIVE (Negative); Urine Protein 1+ (Negative); Urine Specific Gravity 1.015 (1.005-1.030); Urine Urobilinogen 0.2 mg/dL (0.2-1.0)
[2021-11-08 22:26] LABS: Urine Microscopic Reflex ORDER UMIC
--- NOTE | 2021-11-08 22:31 | PN ---
Date of Progress Note: 11/08/2021 Chief Complaint: End-stage renal disease, on hemodialysis; severe hypotension; diarrhea. History Of Present Illness: The patient is admitted to ICU for severe hypotension. He is on midodri ne. He has multiple medical problems including history of diabetes mellitus, end-stage renal disease , on hemodialysis 3 times per week and history of severe systolic dysfunction, coronary artery diseas e, status post AICD. Cardiology consultation was requested for presyncope and generalized weakness w ith chronic hypotension. The patient today denied chest pain. Blood pressure has not improved signi ficantly. The patient is on midodrine for blood pressure support pressures. The patient is to have hemodialysis today for metabolic clearance. The patient was found to have diverticulitis and he is o n broad-spectrum antibiotics for sepsis. Urine culture and blood cultures are pending. CT scan of the abdomen and pelvis showed possible liver cirrhosis. I consulted Gastroenterology for chronic liver disease and possible liver cirrhosis. Review of Systems: The patient is feeling better and denies nausea and vomiting and tolerating p.o. intake. Physical Examination: Lungs: Clear to auscultation bilaterally. Heart: S1, S2. Abdomen: Soft, benign. Extremities: Edema present. Impression And Plan: 1.End-stage disease, dialysis will be today. Continue midodrine for blood pressure support. 2.Congestive heart failure, pleural effusion, pericardial effusion, presyncope, hypotension, history of cardiac arrhythmia. The patient will be consulted by Cardiology. 3.Severe pulmonary hypertension with congestive heart failure and systolic dysfunction. Recommendat ion from Cardiology. 4.Abdominal pain, diarrhea, diverticular disease. Continue broad-spectrum antibiotics. The patient is on meropenem. In view of sepsis, the patient will receive vancomycin. 5.Anemia due to chronic kidney disease. Monitor hemoglobin level. Continue JOSE. 6.Renal osteodystrophy. Currently, the patient is on limited p.o. intake and advance binders accord ingly. EB/MODL Voice ID: [id number] Report ID: [id number]
[2021-11-08 23:19] LABS: Urine Sperm PRESENT (NONE SEEN)
[2021-11-08 23:23] LABS: Urine Bacteria >50 /HPF (NONE SEEN); Urine Urothelial Cells <5 /HPF (NONE SEEN)
[2021-11-09] MEDS: METRONIDAZOLE 500mg IVPB 500 MG/100 ML BAG IV SCH ×3 (00:29→16:31)
[2021-11-09 05:34] LABS: Absolute Lymphocytes (CBC) 1.3 K/uL (0.7-4.9); Hematocrit 34.6 % (39.6-49.0); Lymphocytes % 10.3 % (15.3-44.8); MPV 7.4 fL (7.6-11.3); RBC Red Blood Cell Count 3.58 M/uL (4.33-5.43)
[2021-11-09] MEDS: NA CHLORIDE 0.9% 1,000 ML IV SCH ×2 (05:43→16:35)
[2021-11-09 05:51] LABS: Albumin 2.5 g/dL (3.4-5.0); Bilirubin Total 0.6 mg/dL (0.2-1.0); Potassium 3.6 mmol/L (3.5-5.1); Protein, Total 6.9 g/dL (6.4-8.2)
[2021-11-09 06:29] VITALS: BMI 37.1
[2021-11-09] MEDS: INSULIN -REGULAR HUMAN 50 UNIT/0.5 ML ML SQ SCH ×4 (07:30→21:00)
[2021-11-09] MEDS: PANTOPRAZOLE 40MG TABLET PO SCH ×2 (08:07→16:30)
[2021-11-09] MEDS: levETIRAcetam 500 MG TAB PO SCH ×2 (08:09→22:12)
[2021-11-09] MEDS: FOLIC ACID 1 MG TABLET PO SCH (08:09)
[2021-11-09] MEDS: THIAMINE HCL 100 MG TABLET PO SCH (08:09)
[2021-11-09] MEDS: CALCIUM CARBONATE CHEW 500MG TAB PO SCH ×3 (08:09→16:30)
[2021-11-09] MEDS: MIDODRINE HCL 5 MG TABLET PO SCH ×3 (08:10→22:12)
[2021-11-09] MEDS: APIXABAN 5 MG TABLET PO SCH (08:10)
[2021-11-09] MEDS: CEFEPIME 1 GM in NA CHLORIDE 0.9% 100 ML IV SCH (08:10)
[2021-11-09] MEDS: ASPIRIN 81 MG CHEWABLE TABLET PO SCH (08:10)
[2021-11-09 10:22] LABS: Absolute Lymphocytes (CBC) 0.9 K/uL (0.7-4.9); Hematocrit 31.2 % (39.6-49.0); Lymphocytes % 8.1 % (15.3-44.8); MPV 7.1 fL (7.6-11.3); RBC Red Blood Cell Count 3.25 M/uL (4.33-5.43)
--- NOTE | 2021-11-09 11:43 | P.PN ---
Subjective Date of Service: 11/09/21 Chief Complaint: Hypotension, weakness, syncope Subjective: Improving Physical Examination - Vital Signs Temperature: 97.7 F Blood Pressure: 88/56 Pulse: 63 Respirations: 15 Pulse Ox (%): 92 - Physical Exam General: Alert, In no apparent distress, Cooperative, Obese HEENT: Atraumatic, Normocephalic Respiratory: Normal air movement Cardiovascular: No edema, Regular rate/rhythm, Normal S1 S2, Other (R AVF) Musculoskeletal: No clubbing, No swelling, No contractures Neurological: Normal speech, Normal affect Assessment And Plan - Current Problems (Diagnosis) (1) Sepsis Current Visit: Yes Status: Acute (2) Diverticulitis Current Visit: Yes Status: Acute (3) Abdominal pain Current Visit: No Status: Acute (4) ESRD (end stage renal disease) Current Visit: No Status: Acute (5) Severe pulmonary arterial systolic hypertension Current Visit: No Status: Acute (6) CKD (chronic kidney disease) stage 3, GFR 30-59 ml/min Onset Date: 09/14/16 Current Visit: No Status: Chronic (7) Diabetes type 2, controlled Onset Date: 09/14/16 Current Visit: No Status: Chronic Qualifiers: (8) History of permanent cardiac pacemaker placement Current Visit: No Status: Chronic (9) Neuropathy Onset Date: 09/14/16 Current Visit: No Status: Chronic Physician Review Additional Text: Assessment Patient is a 66 year old male with a PMH of HTN, DM-2, ESRD and chronic systolic CHF. He is currently benign treated for sepsis after he presented with abdominal pain, generalized weakness and diarrhea. He reportedly syncopized. CT A/P shows sigmoid diverticulitis. He is in the unit for hemodynamic monitoring Sepsis, possibly septic shock Diverticulitis Pericardial effusion ESRD Syncope HTN DM-2 PLAN: 2D echo ordered to assess for pericardial effusion Cardiology was consulted for this reason Continue broad spectrum abx Blood cultures and stool cultures negative to date Continue hemodialysis while in-house DVT prophylaxis Patient will most likely be discharged tomorrow after his echocardiogram 11/09/21 11:43
[2021-11-09] MEDS: ATORVASTATIN 40 MG TAB PO SCH (22:12)
--- NOTE | 2021-11-09 22:28 | PN ---
Date of Progress Note: 11/09/2021 Subjective: He is seen by bedside, still well, breathing better. Blood pressures improved. Review of Systems: No chest pain or shortness of breath. No nausea, vomiting, or diarrhea. No dysuria, polyuria, or ur gency. All other systems reviewed are negative. Objective: Vital Signs: Reviewed. Head and Neck: Pupils are equal and reactive to light. Intact eye movements. No JVD. No cervical lymphadenopathy. Neck: Supple. Thyroid is not enlarged. Lungs: Clear to auscultation. Heart: Regular. No extra sounds. Abdomen: Soft, nontender. Bowel sounds positive. No organomegaly. No masses or hernia. No rigidi ty or rebound. Extremities: No clubbing or cyanosis. Intact pulses. Skin: No rashes or nodules. Neuro: Alert, awake. No acute focal deficits appreciated. Investigations: Labs were reviewed. Assessment And Recommendations: 1.Pericardial effusion. I reviewed the echo, it is small and this is likely due to end-stage renal disease, and no further intervention is recommended on that matter. 2.Low ejection fraction with wall motion abnormality, suggestive of possibility of coronary artery d isease. I recommend a Lexiscan nuclear stress test to further evaluate. /MODL Voice ID: [id number] Report ID: [id number]
[2021-11-09] MEDS: INSULIN GLARGINE 100 UNIT/ML SQ SCH (23:18)
[2021-11-10] MEDS: METRONIDAZOLE 500mg IVPB 500 MG/100 ML BAG IV SCH ×3 (01:40→17:20)
--- NOTE | 2021-11-10 03:13 | PN ---
Date of Progress Note: 11/09/2021 Chief Complaint: End-stage renal disease on dialysis. History Of Present Illness: The patient has severe diarrhea, and he presented with hypotension. He has history of severe systolic dysfunction, coronary artery disease, status post AICD. Cardiology co nsultation was requested for presyncope, generalized weakness, and congestive heart failure. The pat ient was found to have pericardial effusion and pleural effusion of mild degree. The patient underwe nt dialysis yesterday without catheterization. The patient is feeling better. He has history of chr onic hypotension. He remains on midodrine. CT scan of the abdomen and pelvis showed possible liver cirrhosis. I consulted Gastroenterology for chronic liver disease and possible cirrhosis. Review of Systems: Denies fever, chills. Physical Examination: Lungs: Clear to auscultation bilaterally. Heart: S1, S2. Abdomen: Soft, benign. Extremities: No edema. Impression And Plan: 1.End-stage disease, dialysis will be done tomorrow. 2.Congestive heart failure, pleural effusion, pericardial effusion, presyncope. Cardiology consulta tion pending. Continue ultrafiltration with dialysis. Continue midodrine for blood pressure support . 3.Severe pulmonary hypertension with congestive heart failure and systolic dysfunction. Recommendat ion from Cardiology. 4.Abdominal pain, diarrhea, diverticular disease, diverticulitis. The patient will continue meropen em. In view of sepsis, the patient will receive vancomycin. 5.Anemia due to chronic kidney disease, continue JOSE. 6.Renal osteodystrophy, continue binders and low phosphorus diet. EB/MODL Voice ID: [id number] Report ID: [id number]
[2021-11-10] MEDS: NA CHLORIDE 0.9% 1,000 ML IV SCH ×2 (04:40→18:00)
[2021-11-10] MEDS: INSULIN -REGULAR HUMAN 50 UNIT/0.5 ML ML SQ SCH ×4 (07:30→21:00)
[2021-11-10] MEDS: levETIRAcetam 500 MG TAB PO SCH ×2 (08:15→23:36)
[2021-11-10] MEDS: MIDODRINE HCL 5 MG TABLET PO SCH ×3 (08:16→23:36)
[2021-11-10] MEDS: FOLIC ACID 1 MG TABLET PO SCH (08:16)
[2021-11-10] MEDS: ASPIRIN 81 MG CHEWABLE TABLET PO SCH (08:16)
[2021-11-10] MEDS: DOCUSATE NA 100 MG CAP PO SCH ×2 (08:16→23:35)
[2021-11-10] MEDS: APIXABAN 5 MG TABLET PO SCH (08:16)
[2021-11-10] MEDS: CALCIUM CARBONATE CHEW 500MG TAB PO SCH ×3 (08:16→17:20)
[2021-11-10] MEDS: THIAMINE HCL 100 MG TABLET PO SCH (08:16)
[2021-11-10] MEDS: PANTOPRAZOLE 40MG TABLET PO SCH ×2 (08:16→17:20)
[2021-11-10] MEDS: CEFEPIME 1 GM in NA CHLORIDE 0.9% 100 ML IV SCH (08:17)
--- NOTE | 2021-11-10 08:29 | EKG ---
Test Date: 2021-11-06 Test Time: 17:57:19 Electronic Publishing Specialist: RAMBO MEASUREMENT RESULTS: Intervals: Rate: 66 CT: 142 QRSD: 160 QT: 494 QTc: 517 [place]: P: 3 CT: 142 QRS: 265 T: 65 INTERPRETIVE STATEMENTS: AV sequential or dual chamber electronic pacemaker Compared to ECG 08/17/2021 16:25:30 Ventricular-paced complex(es) or rhythm no longer present Electronically Signed On 11-10-21 08:23:22 CDT by Shreyas Corbin
--- NOTE | 2021-11-10 08:40 | ECHO ---
HEIGHT: 5 ft 7 in WEIGHT: 237 lb 4.8 oz DATE OF STUDY: 11/07/[address]: Rigoberto Hawthorne NP 2-DIMENSIONAL: YES M.MODE: YES DOPPLER: YES COLOR FLOW: YES TDS: NO PORTABLE: NO DEFINITY: NO BUBBLE STUDY: NO DIAGNOSIS: HYPOTENSION, WEAKNESS, CONGESTIVE HEART FAILURE CARDIAC HISTORY: CATHERIZATION: NO SURGERY: NO PROSTHETIC VALVE: NO PACEMAKER: YES MEASUREMENTS (cm) DIASTOLIC (NORMALS) SYSTOLIC (NORMALS) IVSd 1.2 (0.6-1.2) LA Diam 5.5 (1.9-4.0) LVEF 40-45% LVIDd 6.1 (3.5-5.7) LVIDs 4.7 (2.0-3.5) %FS 23% LVPWd 1.3 (0.6-1.2) Ao Diam 2.9 (2.0-3.7) 2 DIMENSIONAL ASSESSMENT: RIGHT ATRIUM: NORMAL LEFT ATRIUM: ENLARGED RIGHT VENTRICLE: NORMAL LEFT VENTRICLE: DEPRESSED TRICUSPID VALVE: SEVERE TRICUSPID REGURGITATION MITRAL VALVE: MILD MITRAL REGURGITATION PULMONIC VALVE: NORMAL AORTIC VALVE: CALCIFIED WITH MILD AORTIC INSUFFICIENCY PERICARDIAL EFFUSION: SMALL AORTIC ROOT: NORMAL LEFT VENTRICULAR WALL MOTION: DISTAL ANTEROSEPTAL AND APICAL HYPOKINESIS. DOPPLER/COLOR FLOW: SEE BELOW. COMMENTS: MILDLY DEPRESSED LEFT VENTRICULAR EJECTION FRACTION 40-45%. MILD DISTAL CY-SEPTAL/ APICAL HYPOKINESIS. SEVERE TRICUSPID REGURGITATION. MILD AORTIC INSUFFICIENCY, MILD MITRAL REGURGITATION. LEFT ATRIAL ENLARGEMENT. MODERATE TO SEVERE DIASTOLIC DYSFUNCTION. RIGHT VENTRICULAR SYSTOLIC PRESSURE IS 50-55mmHg. TECHNOLOGIST: BELLA RAMIREZ
[2021-11-10] MEDS ORDERED: VANCOMYCIN 2 GM in NA CHLORIDE 0.9% 500 ML IVPB ONE (11:00)
[2021-11-10] MEDS ORDERED: VANCOMYCIN 1.75 GM in NA CHLORIDE 0.9% 500 ML IVPB ONE (11:00)
[2021-11-10 16:04] VITALS: O2SAT 96
[2021-11-10] MEDS: INSULIN GLARGINE 100 UNIT/ML SQ SCH (21:00)
[2021-11-10] MEDS: ATORVASTATIN 40 MG TAB PO SCH (23:35)
[2021-11-11] MEDS: METRONIDAZOLE 500mg IVPB 500 MG/100 ML BAG IV SCH ×2 (02:15→08:59)
[2021-11-11] MEDS: INSULIN -REGULAR HUMAN 50 UNIT/0.5 ML ML SQ SCH ×2 (07:30→11:30)
[2021-11-11] MEDS ORDERED: NA CHLORIDE 0.9% 100 ML ONE (07:57)
[2021-11-11] MEDS ORDERED: CEFEPIME 1 GM/VIAL ONE (08:01)
--- NOTE | 2021-11-11 08:02 | P.PN ---
Subjective Date of Service: 11/12/21 Chief Complaint: Hypotension, weakness, syncope Subjective: No new changes Physical Examination - Vital Signs Temperature: 97.4 F Blood Pressure: 100/48 Pulse: 63 Respirations: 19 Pulse Ox (%): 96 - Physical Exam General: Other (appears as his stated age) HEENT: Atraumatic, Normocephalic Neck: Supple, JVD not distended Respiratory: Other (symmetric chest expansion) Cardiovascular: No rubs, No murmurs Gastrointestinal: Soft and benign, No guarding Musculoskeletal: No clubbing Integumentary: No warmth Neurological: Normal speech, Normal tone Lymphatics: No axilla or inguinal lymphadenopathy Urinary: Other (no bladder distention) External genitalia: Deferred Rectal: Deferred Assessment And Plan - Plan 1. ESRD on HD. HD tomorrow per MWF sked. 2. Congestive heart failure, pleural effusion, pericardial effusion, presyncope. HD as above. 3. Severe pulmonary hypertension with congestive heart failure and systolic dysfunction. Per other services. UF/HD as above. 4. Abdominal pain, diarrhea, diverticular disease, diverticulitis. Improved. Cont abx. 5. Anemia due to chronic kidney disease, continue JOSE. 6. Renal osteodystrophy, continue binders and low phosphorus diet.
[2021-11-11] MEDS: APIXABAN 5 MG TABLET PO SCH (08:56)
[2021-11-11] MEDS: FOLIC ACID 1 MG TABLET PO SCH (08:56)
[2021-11-11] MEDS: DOCUSATE NA 100 MG CAP PO SCH (08:56)
[2021-11-11] MEDS: CEFEPIME 1 GM in NA CHLORIDE 0.9% 100 ML IV SCH (08:56)
[2021-11-11] MEDS: CALCIUM CARBONATE CHEW 500MG TAB PO SCH (08:57)
[2021-11-11] MEDS: THIAMINE HCL 100 MG TABLET PO SCH (08:57)
[2021-11-11] MEDS: MIDODRINE HCL 5 MG TABLET PO SCH (08:57)
[2021-11-11] MEDS: ASPIRIN 81 MG CHEWABLE TABLET PO SCH (08:57)
[2021-11-11] MEDS: levETIRAcetam 500 MG TAB PO SCH (08:57)
[2021-11-11] MEDS: PANTOPRAZOLE 40MG TABLET PO SCH (08:57)
[2021-11-11] MEDS: NA CHLORIDE 0.9% 1,000 ML IV SCH (08:58)
--- NOTE | 2021-11-11 14:01 | PN ---
Date of Progress Note: 11/10/2021 Chief Complaint: End-stage renal disease on dialysis. Subjective: The patient has severe diarrhea and he presented to the hospital because of hypotension, briefly couple of episodes and he denies melena or hematemesis. He has underlying history of severe systolic dysfunction, coronary artery disease, status post AICD. Cardiology consultation was reques jose juan for presyncope, generalized weakness, and congestive heart failure. The patient may need a kathy p for coronary artery disease. The patient will have to have pericardial effusion and pleural effusi on of mild degree. The patient underwent dialysis and is to have dialysis today for metabolic cleara nce and ultrafiltration. On presentation to the hospital, the patient was found to have severe hypot ension. He was started on midodrine and that was increased to control hypotension. Blood pressure o verall has improved over the last [address] scan of the abdomen and pelvis showed possible liver cirrhosis. I consulted wire border assembler. The patient was found to have diverticulitis and he is p laced on antibiotics. Review of Systems: Denies fever or chills. Physical Examination: Abdomen: Soft, benign. Extremities: No edema. Heart: S1, S2. Lungs: Clear to auscultation bilaterally. Impression And Plan: 1.End-stage renal disease. Continue dialysis on Wednesday, Wednesday, and Wednesday. dialysis hypotension. Continue midodrine for blood pressure. 2.Congestive heart failure, pleural effusion, pericardial effusion, presyncope. Continue midodrine for blood pressure support and low-sodium diet to prevent fluid overload. Continue ultrafiltration w ith dialysis as tolerated. 3.Severe pulmonary hypertension with congestive heart failure and systolic dysfunction. Recommendat ion from Cardiology. 4.Abdominal pain, diarrhea, diverticular disease, diverticulitis. The patient will continue meropen em. In view of sepsis, the patient also received vancomycin. Follow up on blood cultures and urine cultures. 5.Anemia due to chronic kidney disease. Continue OJSE. 6.Renal osteodystrophy. Continue binders and low-phosphorus diet. EB/MODL Voice ID: [id number] Report ID: [id number]
[2021-11-12 05:51] VITALS: BP 100/48; TEMP 97.4
--- NOTE | 2021-11-13 11:38 | PN ---
Date of Progress Note: 11/10/2021 Mr. Elaine has been followed by Dr. Alexander and Dr. Lyle. He came in with hypotension, near syncope se condary to dehydration. He has pericardial effusion on CT scan that is small. Echocardiogram, [facility], showed normal ejection fraction. No significant pericardial effusion. No wall motion abnormalit ies. The patient is fairly asymptomatic. I think he can go home today and we will follow up with neptali szymanski as an outpatient. No change in medical therapy. SHA/MODL Voice ID: [id number] Report ID: [id number]
== END 2021-11-11 14:10 | disposition home or self-care (01) | DRG 871 ==
LOC: ER 17:34 → ERHOLD 21:27 → 3RD-ICU 11-07 01:26 → 2ND 11-09 14:45
PROVIDERS: ADMIT Internal Medicine; ATTEND Hospitalist
PROC: 5A1D70Z Performance of Urinary Filtration, Intermittent, Less than 6 Hours Per Day (ICD-10-PCS; principal; 2021-11-08)
DX: A41.9 Sepsis, unspecified organism (principal); N18.6 End stage renal disease; I50.22 Chronic systolic (congestive) heart failure; I13.2 Hypertensive heart and chronic kidney disease with heart failure and with stage 5 chronic kidney disease, or end stage renal disease; K57.32 Diverticulitis of large intestine without perforation or abscess without bleeding; I31.3 Pericardial effusion (noninflammatory); E11.22 Type 2 diabetes mellitus with diabetic chronic kidney disease; E11.40 Type 2 diabetes mellitus with diabetic neuropathy, unspecified; D63.1 Anemia in chronic kidney disease; E78.5 Hyperlipidemia, unspecified; I27.21 Secondary pulmonary arterial hypertension; E86.0 Dehydration; I25.10 Atherosclerotic heart disease of native coronary artery without angina pectoris; N25.0 Renal osteodystrophy; Z99.2 Dependence on renal dialysis; Z88.1 Allergy status to other antibiotic agents; Z79.4 Long term (current) use of insulin; Z79.84 Long term (current) use of oral hypoglycemic drugs; Z79.01 Long term (current) use of anticoagulants; Z79.899 Other long term (current) drug therapy; Z95.0 Presence of cardiac pacemaker; Z90.49 Acquired absence of other specified parts of digestive tract; Z95.828 Presence of other vascular implants and grafts; Z20.822 Contact with and (suspected) exposure to COVID-19
CPT/HCPCS: 0240U; 36415; 71045; 74176; 80053; 80202; 81003; 81015; 82947; 83605; 83880; 84145; 84484; 85025; 85610; 85730; 86704; 86706; 86803; 87040; 87045; 87046; 87086; 87088; 87177; 87209; 87324; 87340; 87449; 89055; 90935; 93005; 93306; 96365; 96366; 96367; 99285; J0692; J1644; J3370; J7030; J7040; J7050

== ENCOUNTER 2022-04-10 06:54 | Inpatient (IN) | payer OTHER ==
--- OUTSIDE RECORDS SUMMARY | 2022-04-10 07:04 | XMS REPORT | Continuity of Care Document ---
:1955 Author Organization [facility] t Address [address] [place] [address] Care Team Providers Name Role Phone Ruthie Steiner Primary Care Physician [phone] Monica Bardales Attending Clinician Unavailable Rubi Perez MD Attending Clinician Gaudencio Frias Attending Clinician Unavailable Monica Bardales Admitting Clinician Unavailable Physician, No Primary or Family Admitting Clinician [facility] Payers Payer Name Policy Type Policy Number Effective Date Expiration Date S ource Problems This patient has no known problems. Allergies, Adverse Reactions, Alerts Allergy Allergy Status Severity Reaction(s) Onset Inactive Treating Comm ents Source Name Type Date Date Clinician n Propensi Active ty to 01-15 adverse 00:00: reaction 00 to drug Cipro - Propensi Active Oral ty to 3-03 adverse 00:00: reaction 00 to drug Zithroma Propensi Active x ty to 04-22 adverse 00:00: reaction 00 to drug erythrom DA [facility] U [facility] [place] 00:[facility]: [address] ciproflo DA Active U [facility] xacin [facility] [place] 00:00: [address] erythrom DA Active U [facility] [place] 00:00: [address] ciproflo DA Active U [facility] xacin 8-19 [place] 00:00: [address] Erythrom Propensi Active Other - See "Burning [facility] ycin ty to comments 2-18 in ity of adverse 00:00: stomach." [place] reaction [address] [place] [address] [place] ERYTHROM DRUG Active Other-[facility]nt Univ ers YCIN 2-18 ity of 00:00: [address] azithrom DA Active OR 2018- [facility] [place] 00:00: [address] azithrom DA Active OR BURNING 2018-08 [facility] SENSATION 0-22 [place] ABDOMEN 00:00: [address] azithrom DA Active OR [facility] y[facility] 3-27 [place] 00:00: [address] NO KNOWN Drug Active Univers ALLERGIE Class ity of [facility] Social History Social Habit Start Date Stop Date Quantity Comments Source Sex Assigned At [facility] Exposure to SARS-CoV-2 Not sure [facility] [place] (event) [facility] Smoking Status Start Date Stop Date Source Unknown if ever smoked [facility] Medications Ordered Filled Start Stop Current Ordering Indication Dosage Frequency Signature Comments Components Source Medication Medication Date Date Medication? Clinician (SIG) Name Name Dose No Unknown 03-20 00:00: 00 Dose 2021-0 No Unknown 03-20 00:00: 00 Dose 2021-0 No Unknown 03-10 00:00: 00 Dose 2021-0 No Unknown 03-10 00:00: 00 Levemir 0 No (3 mL) FlexTouch 7-15 U-100 00:00: Insulin 100 00 unit/mL (3 mL) subcutaneou s pen atorvastati No 1mg n 40 mg 7-15 tablet 00:00: 00 levetiracet 2021-0 No 1mg am 500 mg 7-15 tablet 00:00: 00 pantoprazol 0 No 1mg e 40 mg 7-15 tablet,shy 00:00: yed release 00 doxycycline 2022-0 No 1mg hyclate 100 7-15 mg capsule 00:00: 00 Dose 2022-0 No Unknown 7-15 00:00: 00 Levemir 2022-0 No (3 mL) FlexTouch 7-15 U-100 00:00: Insulin 100 00 unit/mL (3 mL) subcutaneou s pen atorvastati 2-0 No 1mg n 40 mg 7-15 tablet 00:00: 00 levetiracet 2-0 No 1mg am 500 mg 7-15 tablet 00:00: 00 pantoprazol 2-0 No 1mg e 40 mg 7-15 tablet,shy 00:00: yed release 00 doxycycline 2-0 No 1mg hyclate 100 7-15 mg capsule 00:00: 00 Dose 2022-0 No Unknown 7-15 00:00: 00 Dose 2022-0 No Unknown 7-14 00:00: 00 Dose 2022-0 No Unknown 7-14 00:00: 00 Dose 2022-0 No Unknown 7-11 00:00: 00 Dose 2022-0 No Unknown 7-11 00:00: 00 Dose 2022-0 No Unknown 7-11 00:00: 00 Dose 2022-0 No Unknown 7-11 00:00: 00 Dose 2022-0 No Unknown 7-11 00:00: 00 Dose 2022-0 No Unknown 7-11 00:00: 00 cephalexin 2022-0 No 1mg 500 mg 5-26 tablet 00:00: 00 doxycycline 2022-0 No 1mg hyclate 100 5-26 mg capsule 00:00: 00 doxycycline 2022-0 No 1mg hyclate 100 5-26 mg capsule 00:00: 00 Dose 2022-0 No Unknown 5-26 00:00: 00 cephalexin 2022-0 No 1mg 500 mg 5-26 tablet 00:00: 00 doxycycline 2022-0 No 1mg hyclate 100 5-26 mg capsule 00:00: 00 doxycycline 2022-0 No 1mg hyclate 100 5-26 mg capsule 00:00: 00 Dose 2022-0 No Unknown 5-26 00:00: 00 Levemir 2022-0 No (3 mL) FlexTouch 5-10 U-100 00:00: Insulin 100 00 unit/mL (3 mL) subcutaneou s pen atorvastati 2022-0 No 1mg n 40 mg 5-10 tablet 00:00: 00 Januvia 25 2022-0 No 1mg mg tablet 5-10 00:00: 00 levetiracet 2022-0 No 1mg am 500 mg 5-10 tablet 00:00: 00 pantoprazol 2022-0 No 1mg e 40 mg 5-10 tablet,shy 00:00: yed release 00 Eliquis 2.5 2022-0 No 1mg mg tablet 5-10 00:00: 00 furosemide 2022-0 No 1mg 80 mg 5-10 tablet 00:00: 00 clonidine 2022-0 No 1mg HCl 0.2 mg 5-10 tablet 00:00: 00 Levemir 2022-0 No (3 mL) FlexTouch 5-10 U-100 00:00: Insulin 100 00 unit/mL (3 mL) subcutaneou s pen atorvastati 2-0 No 1mg n 40 mg 5-10 tablet 00:00: 00 Januvia 25 2-0 No 1mg mg tablet 5-10 00:00: 00 levetiracet 2022-0 No 1mg am 500 mg 5-10 tablet 00:00: 00 pantoprazol 2022-0 No 1mg e 40 mg 5-10 tablet,shy 00:00: yed release 00 Eliquis 2.5 2022-0 No 1mg mg tablet 5-10 00:00: 00 furosemide 2022-0 No 1mg 80 mg 5-10 tablet 00:00: 00 clonidine 2022-0 No 1mg HCl 0.2 mg 5-10 tablet 00:00: 00 Dose 2022-0 No Unknown 3-03 00:00: 00 Dose 2022-0 No Unknown 3-03 00:00: 00 Dose 2022-0 No Unknown 3-03 00:00: 00 Dose 2022-0 No Unknown 3-03 00:00: 00 Dose 2022-0 No Unknown 3-03 00:00: 00 Dose 2022-0 No Unknown 3-03 00:00: 00 Dose 2022-0 No Unknown 3-03 00:00: 00 Dose 2022-0 No Unknown 3-03 00:00: 00 Dose 2022-0 No Unknown 3-03 00:00: 00 Dose 2022-0 No Unknown 3-03 00:00: 00 Dose 2022-0 No Unknown 3-03 00:00: 00 Dose 2022-0 No Unknown 3-03 00:00: 00 Dose 2022-0 No Unknown 3-03 00:00: 00 Dose 2022-0 No Unknown 3-03 00:00: 00 Dose 2022-0 No Unknown 3-03 00:00: 00 Dose 2022-0 No Unknown 3-03 00:00: 00 Dose 2022-0 No Unknown 3-03 00:00: 00 Dose 2022-0 No Unknown 3-03 00:00: 00 Dose 2022-0 No Unknown 3-03 00:00: 00 Dose 2022-0 No Unknown 3-03 00:00: 00 Dose 2022-0 No Unknown 3-03 00:00: 00 Dose 2022-0 No Unknown 3-03 00:00: 00 Dose 2022-0 No Unknown 3-03 00:00: 00 Dose 2022-0 No Unknown 3-03 00:00: 00 Dose 2022-0 No Unknown 3-03 00:00: 00 Dose 2022-0 No Unknown 3-03 00:00: 00 Dose 2022-0 No Unknown 3-03 00:00: 00 Dose 2022-0 No Unknown 3-03 00:00: 00 Dose 2022-0 No Unknown 3-03 00:00: 00 Dose 2022-0 No Unknown 3-03 00:00: 00 Dose 2022-0 No Unknown 3-03 00:00: 00 Dose 2022-0 No Unknown 3-03 00:00: 00 Dose 2022-0 No Unknown 3-03 00:00: 00 Dose 2022-0 No Unknown 3-03 00:00: 00 Dose 2022-0 No Unknown 3-03 00:00: 00 Dose 2022-0 No Unknown 3-03 00:00: 00 Dose 2022-0 No Unknown 3-03 00:00: 00 Dose 2022-0 No Unknown 3-03 00:00: 00 Dose 2022-0 No Unknown 3-03 00:00: 00 Dose 2022-0 No Unknown 3-03 00:00: 00 Dose 2022-0 No Unknown 3-03 00:00: 00 Dose 2022-0 No Unknown 3-03 00:00: 00 Dose 2022-0 No Unknown 3-03 00:00: 00 Dose 2022-0 No Unknown 3-03 00:00: 00 Dose 2022-0 No Unknown 3-03 00:00: 00 Dose 2022-0 No Unknown 3-03 00:00: 00 Dose 2022-0 No Unknown 3-03 00:00: 00 Dose 2022-0 No Unknown 3-03 00:00: 00 Dose 2022-0 No Unknown 3-03 00:00: 00 Dose 2022-0 No Unknown 3-03 00:00: 00 Dose 2022-0 No Unknown 3-03 00:00: 00 Dose 2022-0 No Unknown 3-03 00:00: 00 Dose 2022-0 No Unknown 3-03 00:00: 00 Dose 2022-0 No Unknown 3-03 00:00: 00 Dose 2022-0 No Unknown 3-03 00:00: 00 Dose 2022-0 No Unknown 3-03 00:00: 00 Dose 2022-0 No Unknown 3-03 00:00: 00 Dose 2022-0 No Unknown 3-03 00:00: 00 Dose 2022-0 No Unknown 3-03 00:00: 00 Dose 2022-0 No Unknown 3-03 00:00: 00 Dose 2022-0 No Unknown 3-03 00:00: 00 Dose 2022-0 No Unknown 3-03 00:00: 00 Dose 2022-0 No Unknown 3-03 00:00: 00 Dose 2022-0 No Unknown 3-03 00:00: 00 Dose 2022-0 No Unknown 3-03 00:00: 00 Dose 2022-0 No Unknown 3-03 00:00: 00 Dose 2022-0 No Unknown 3-03 00:00: 00 Dose 2022-0 No Unknown 3-03 00:00: 00 Dose 2022-0 No Unknown 3-03 00:00: 00 Dose 2022-0 No Unknown 3-03 00:00: 00 Dose 2022-0 No Unknown 3-03 00:00: 00 Dose 2022-0 No Unknown 3-03 00:00: 00 Dose 2022-0 No Unknown 3-03 00:00: 00 Dose 2022-0 No Unknown 3-03 00:00: 00 Dose 2022-0 No Unknown 3-03 00:00: 00 Dose 2022-0 No Unknown 3-03 00:00: 00 Dose 2022-0 No Unknown 3-03 00:00: 00 Dose 2022-0 No Unknown 3-03 00:00: 00 Dose 2022-0 No Unknown 3-03 00:00: 00 Dose 2022-0 No Unknown 3-03 00:00: 00 Dose 2022-0 No Unknown 3-03 00:00: 00 Dose 2022-0 No Unknown 3-03 00:00: 00 Dose 2022-0 No Unknown 3-03 00:00: 00 Dose 2022-0 No Unknown 3-03 00:00: 00 Dose 2022-0 No Unknown 3-03 00:00: 00 Dose 2022-0 No Unknown 3-03 00:00: 00 Dose 2022-0 No Unknown 3-03 00:00: 00 Dose 2022-0 No Unknown 3-03 00:00: 00 Dose 2022-0 No Unknown 3-03 00:00: 00 Dose 2022-0 No Unknown 3-03 00:00: 00 Dose 2022-0 No Unknown 3-03 00:00: 00 Dose 2022-0 No Unknown 3-03 00:00: 00 Dose 2022-0 No Unknown 3-03 00:00: 00 Dose 2022-0 No Unknown 3-03 00:00: 00 Dose 2022-0 No Unknown 3-03 00:00: 00 Dose 2022-0 No Unknown 3-03 00:00: 00 Dose 2022-0 No Unknown 3-03 00:00: 00 Dose 2022-0 No Unknown 3-03 00:00: 00 Dose 2022-0 No Unknown 3-03 00:00: 00 Dose 2022-0 No Unknown 3-03 00:00: 00 Dose 2022-0 No Unknown 3-03 00:00: 00 Dose 2022-0 No Unknown 3-03 00:00: 00 Dose 2022-0 No Unknown 3-03 00:00: 00 Dose 2022-0 No Unknown 3-03 00:00: 00 Dose 2022-0 No Unknown 3-03 00:00: 00 Dose 2022-0 No Unknown 3-03 00:00: 00 Dose 2022-0 No Unknown 3-03 00:00: 00 Dose 2022-0 No Unknown 3-03 00:00: 00 Dose 2022-0 No Unknown 3-03 00:00: 00 Dose 2022-0 No Unknown 3-03 00:00: 00 Dose 2022-0 No Unknown 3-03 00:00: 00 Dose 2022-0 No Unknown 3-03 00:00: 00 Dose 2022-0 No Unknown 3-03 00:00: 00 Dose 2022-0 No Unknown 3-03 00:00: 00 Dose 2022-0 No Unknown 3-03 00:00: 00 Dose 2022-0 No Unknown 3-03 00:00: 00 Dose 2022-0 No Unknown 3-03 00:00: 00 Dose 2022-0 No Unknown 3-03 00:00: 00 Dose 2022-0 No Unknown 3-03 00:00: 00 Dose 2022-0 No Unknown 3-03 00:00: 00 Dose 2022-0 No Unknown 3-03 00:00: 00 Dose 2022-0 No Unknown 3-03 00:00: 00 Dose 2022-0 No Unknown 3-03 00:00: 00 Dose 2022-0 No Unknown 3-03 00:00: 00 Dose 2022-0 No Unknown 3-03 00:00: 00 Dose 2022-0 No Unknown 3-03 00:00: 00 Dose 2022-0 No Unknown 3-03 00:00: 00 Dose 2022-0 No Unknown 3-03 00:00: 00 Dose 2022-0 No Unknown 3-03 00:00: 00 Dose 2022-0 No Unknown 3-03 00:00: 00 Dose 2022-0 No Unknown 3-03 00:00: 00 Dose 2022-0 No Unknown 3-03 00:00: 00 Dose 2022-0 No Unknown 3-03 00:00: 00 Dose 2022-0 No Unknown 3-03 00:00: 00 Dose 2022-0 No Unknown 3-03 00:00: 00 Dose 2022-0 No Unknown 3-03 00:00: 00 Dose 2022-0 No Unknown 3-03 00:00: 00 Dose 2022-0 No Unknown 3-03 00:00: 00 Dose 2022-0 No Unknown 3-03 00:00: 00 Dose 2022-0 No Unknown 3-03 00:00: 00 Dose 2022-0 No Unknown 3-03 00:00: 00 Dose 2022-0 No Unknown 3-03 00:00: 00 Dose 2022-0 No Unknown 3-03 00:00: 00 Dose 2022-0 No Unknown 3-03 00:00: 00 Dose 2022-0 No Unknown 3-03 00:00: 00 Dose 2022-0 No Unknown 3-03 00:00: 00 Dose 2022-0 No Unknown 3-03 00:00: 00 Dose 2022-0 No Unknown 3-03 00:00: 00 Dose 2022-0 No Unknown 3-03 00:00: 00 Dose 2022-0 No Unknown 3-03 00:00: 00 Dose 2022-0 No Unknown 3-03 00:00: 00 Dose 2022-0 No Unknown 3-03 00:00: 00 Dose 2022-0 No Unknown 3-03 00:00: 00 Dose 2022-0 No Unknown 3-03 00:00: 00 Dose 2022-0 No Unknown 3-03 00:00: 00 Dose 2022-0 No Unknown 3-03 00:00: 00 Dose 2022-0 No Unknown 3-03 00:00: 00 Dose 2022-0 No Unknown 3-03 00:00: 00 Dose 2022-0 No Unknown 3-03 00:00: 00 Dose 2022-0 No Unknown 3-03 00:00: 00 Dose 2022-0 No Unknown 3-03 00:00: 00 Dose 2022-0 No Unknown 3-03 00:00: 00 Dose 2022-0 No Unknown 3-03 00:00: 00 Dose 2022-0 No Unknown 3-03 00:00: 00 Dose 2022-0 No Unknown 3-03 00:00: 00 Dose 2022-0 No Unknown 3-03 00:00: 00 Dose 2022-0 No Unknown 3-03 00:00: 00 Dose 2022-0 No Unknown 3-03 00:00: 00 Dose 2022-0 No Unknown 3-03 00:00: 00 Dose 2022-0 No Unknown 3-03 00:00: 00 Dose 2022-0 No Unknown 3-03 00:00: 00 Dose 2022-0 No Unknown 3-03 00:00: 00 Dose 2022-0 No Unknown 3-03 00:00: 00 Dose 2022-0 No Unknown 3-03 00:00: 00 Dose 2022-0 No Unknown 3-03 00:00: 00 Dose 2022-0 No Unknown 3-03 00:00: 00 Dose 2022-0 No Unknown 3-03 00:00: 00 Dose 2022-0 No Unknown 3-03 00:00: 00 Dose 2022-0 No Unknown 3-03 00:00: 00 Dose 2022-0 No Unknown 3-03 00:00: 00 Dose 2022-0 No Unknown 3-03 00:00: 00 Dose 2022-0 No Unknown 3-03 00:00: 00 Dose 2022-0 No Unknown 3-03 00:00: 00 Dose 2022-0 No Unknown 3-03 00:00: 00 Dose 2022-0 No Unknown 3-03 00:00: 00 Dose 2022-0 No Unknown 3-03 00:00: 00 Dose 2022-0 No Unknown 3-03 00:00: 00 Dose 2022-0 No Unknown 3-03 00:00: 00 Dose 2022-0 No Unknown 3-03 00:00: 00 Dose 2022-0 No Unknown 3-03 00:00: 00 Dose 2022-0 No Unknown 3-03 00:00: 00 Dose 2022-0 No Unknown 3-03 00:00: 00 Dose 2022-0 No Unknown 3-03 00:00: 00 Dose 2022-0 No Unknown 3-03 00:00: 00 Dose 2022-0 No Unknown 3-03 00:00: 00 Dose 2022-0 No Unknown 3-03 00:00: 00 Dose 2022-0 No Unknown 3-03 00:00: 00 Dose 2022-0 No Unknown 3-03 00:00: 00 Dose 2022-0 No Unknown 3-03 00:00: 00 Dose 2022-0 No Unknown 3-03 00:00: 00 Dose 2021-1 No Unknown 1-18 00:00: 00 Dose 2021-1 No Unknown 1-18 00:00: 00 Dose 1-1 No Unknown 0-19 00:00: 00 Januvia 25 2020-1 No 1mg mg tablet 0-19 00:00: 00 Dose 2020-1 No Unknown 0-19 00:00: 00 Dose 1-1 No Unknown 0-19 00:00: 00 levetiracet 2020-1 No 1mg am 500 mg 0-19 tablet 00:00: 00 Dose 2021-1 No Unknown 0-19 00:00: 00 Dose 1-1 No Unknown 0-19 00:00: 00 Dose 1-1 No Unknown 0-19 00:00: 00 Januvia 25 2020-1 No 1mg mg tablet 0-19 00:00: 00 Dose 1-1 No Unknown 0-19 00:00: 00 Dose 1-1 No Unknown 0-19 00:00: 00 levetiracet 1-1 No 1mg am 500 mg 0-19 tablet 00:00: 00 Dose 1-1 No Unknown 0-19 00:00: 00 Dose 1-1 No Unknown 0-19 00:00: 00 Dose 1-0 No Unknown 8-31 00:00: 00 Dose 1-0 No Unknown 8-31 00:00: 00 Dose 1-0 No Unknown 8-31 00:00: 00 Dose 1-0 No Unknown 8-31 00:00: 00 Januvia 25 2020-0 No 1mg mg tablet 7 00:00: 00 atorvastati 2020-0 No 1mg n 40 mg 7-29 tablet 00:00: 00 allopurinol 1-0 No 1mg 100 mg 7-29 tablet 00:00: 00 levetiracet 2020-0 No 1mg am 500 mg 7-29 tablet 00:00: 00 pantoprazol 1-0 No 1mg e 40 mg 7-29 tablet,shy 00:00: yed release 00 furosemide 1-0 No 1mg 80 mg 7-29 tablet 00:00: 00 Levemir 2020-0 No (3 mL) FlexTouch 7-29 U-100 00:00: Insulin 100 00 unit/mL (3 mL) subcutaneou s pen mupirocin 2 2020-0 No 1% % topical 7- ointment 00:00: 00 Januvia 25 2020-0 No 1mg mg tablet 7 00:00: 00 atorvastati 1-0 No 1mg n 40 mg 7-29 tablet 00:00: 00 allopurinol 2021-0 No 1mg 100 mg 7-29 tablet 00:00: 00 levetiracet 1-0 No 1mg am 500 mg 7-29 tablet 00:00: 00 pantoprazol 2020-0 No 1mg e 40 mg 03-20 tablet,shy 00:00: yed release 00 furosemide 2020-0 No 1mg 80 mg 7- tablet 00:00: 00 Levemir 2020-0 No (3 mL) FlexTouch 7-29 U-100 00:00: Insulin 100 00 unit/mL (3 mL) subcutaneou s pen mupirocin 2 2020-0 No 1% % topical 03-20 ointment 00:00: 00 Levemir 2020-0 No (3 mL) FlexTouch 7- U-100 00:00: Insulin 100 00 unit/mL (3 mL) subcutaneou s pen atorvastati 2020-0 No 1mg n 40 mg - tablet 00:00: 00 Januvia 25 2020-0 No 1mg mg tablet 02-21 00:00: 00 Levemir 2020-0 No (3 mL) FlexTouch 7-02 U-100 00:00: Insulin 100 00 unit/mL (3 mL) subcutaneou s pen atorvastati 2020-0 No 1mg n 40 mg - tablet 00:00: 00 Januvia 25 2020-0 No 1mg mg tablet 02-21 00:00: 00 Levemir 2020-0 No (3 mL) FlexTouch 4-30 U-100 00:00: Insulin 100 00 unit/mL (3 mL) subcutaneou s pen cephalexin 2020-0 No 1mg 500 mg 4-30 tablet 00:00: 00 Januvia 25 2020-0 No 1mg mg tablet 12-20 00:00: 00 atorvastati 1-0 No 1mg n 40 mg 4-30 tablet 00:00: 00 levetiracet 1-0 No 1mg am 500 mg 4-30 tablet 00:00: 00 furosemide 1-0 No 1mg 80 mg 4-30 tablet 00:00: 00 DOK 100 mg 2021-0 No 1mg capsule 430 00:00: 00 Levemir 1-0 No (3 mL) FlexTouch 4-30 U-100 00:00: Insulin 100 00 unit/mL (3 mL) subcutaneou s pen cephalexin 2021-0 No 1mg 500 mg 4-30 tablet 00:00: 00 Januvia 25 1-0 No 1mg mg tablet 4-30 00:00: 00 atorvastati 1-0 No 1mg n 40 mg 4-30 tablet 00:00: 00 levetiracet 1-0 No 1mg am 500 mg 4-30 tablet 00:00: 00 furosemide 2021-0 No 1mg 80 mg 4-30 tablet 00:00: 00 DOK 100 mg 1-0 No 1mg capsule 4-30 00:00: 00 atorvastati 1-0 No 1mg n 40 mg 4-19 tablet 00:00: 00 atorvastati 1-0 No 1mg n 40 mg 4-19 tablet 00:00: 00 Levemir 1-0 No (3 mL) FlexTouch 3-04 U-100 00:00: Insulin 100 00 unit/mL (3 mL) subcutaneou s pen Januvia 50 2020-0 No 1mg mg tablet 3- 00:00: 00 Levemir 1-0 No (3 mL) FlexTouch 3-04 U-100 00:00: Insulin 100 00 unit/mL (3 mL) subcutaneou s pen Januvia 50 2020-0 No 1mg mg tablet 3-04 00:00: 00 Levemir 1-0 No 15(3 FlexTouch 1-15 mL) U-100 00:00: Insulin 100 00 unit/mL (3 mL) subcutaneou s pen atorvastati 1-0 No 1mg n 40 mg 1-15 tablet 00:00: 00 allopurinol 1-0 No 1mg 100 mg 1-15 tablet 00:00: 00 allopurinol 1-0 No 1mg 100 mg 1-15 tablet 00:00: 00 atorvastati 1-0 No 1mg n 40 mg 1-15 tablet 00:00: 00 pantoprazol 2021-0 No 1mg e 40 mg 1-15 tablet,shy 00:00: yed release 00 levetiracet 1-0 No 1mg am 500 mg 1-15 tablet 00:00: 00 pantoprazol 1-0 No 1mg e 40 mg 1-15 tablet,shy 00:00: yed release 00 pantoprazol 2021-0 No 1mg e 40 mg 1-15 tablet,shy 00:00: yed release 00 levetiracet 1-0 No 1mg am 500 mg 1-15 tablet 00:00: 00 furosemide 1-0 No 1mg 80 mg 1-15 tablet 00:00: 00 furosemide 1-0 No 1mg 80 mg 1-15 tablet 00:00: 00 ferrous 1-0 No 1(65 mg sulfate 325 1-15 iron) mg (65 mg 00:00: iron) 00 tablet,shy yed release ferrous 1-0 No 1(65 mg sulfate 325 1-15 iron) mg (65 mg 00:00: iron) 00 tablet,shy yed release Levemir 1-0 No 15(3 FlexTouch 1-15 mL) U-100 00:00: Insulin 100 00 unit/mL (3 mL) subcutaneou s pen atorvastati 1-0 No 1mg n 40 mg 1-15 tablet 00:00: 00 allopurinol 1-0 No 1mg 100 mg 1-15 tablet 00:00: 00 allopurinol 1-0 No 1mg 100 mg 1-15 tablet 00:00: 00 atorvastati 1-0 No 1mg n 40 mg 1-15 tablet 00:00: 00 pantoprazol 1-0 No 1mg e 40 mg 1-15 tablet,shy 00:00: yed release 00 levetiracet 1-0 No 1mg am 500 mg 1-15 tablet 00:00: 00 pantoprazol 1-0 No 1mg e 40 mg 1-15 tablet,shy 00:00: yed release 00 pantoprazol 1-0 No 1mg e 40 mg 1-15 tablet,shy 00:00: yed release 00 levetiracet 1-0 No 1mg am 500 mg 1-15 tablet 00:00: 00 furosemide 1-0 No 1mg 80 mg 1-15 tablet 00:00: 00 furosemide 2021-0 No 1mg 80 mg 1-15 tablet 00:00: 00 ferrous 1-0 No 1(65 mg sulfate 325 1-15 iron) mg (65 mg 00:00: iron) 00 tablet,shy yed release ferrous 2021-0 No 1(65 mg sulfate 325 1-15 iron) mg (65 mg 00:00: iron) 00 tablet,shy yed release Levemir 2019-08 No 15(3 FlexTouch 0-20 mL) U-100 00:00: Insulin 100 00 unit/mL (3 mL) subcutaneou s pen sildenafil 2019-08 No 1mg (pulmonary 0-20 hypertensio 00:00: n) 20 mg 00 tablet thiamine 2019-08 No 1mg HCl 0-20 (vitamin 00:00: B1) 100 mg 00 tablet allopurinol 2019-08 No 1mg 100 mg 0-20 tablet 00:00: 00 pantoprazol 2019-08 No 1mg e 40 mg 0-20 tablet,shy 00:00: yed release 00 furosemide 2019-08 No 1mg 80 mg 0-20 tablet 00:00: 00 furosemide 2019-08 No 1mg 80 mg 0-20 tablet 00:00: 00 simethicone 2019-08 No 1mg 80 mg 0-20 chewable 00:00: tablet 00 ferrous 2019-08 No 1(65 mg sulfate 325 0-20 iron) mg (65 mg 00:00: iron) 00 tablet,shy yed release Levemir 2019-08 No 15(3 FlexTouch 0-20 mL) U-100 00:00: Insulin 100 00 unit/mL (3 mL) subcutaneou s pen sildenafil 2019-08 No 1mg (pulmonary 0-20 hypertensio 00:00: n) 20 mg 00 tablet thiamine 2019-08 No 1mg HCl 0-20 (vitamin 00:00: B1) 100 mg 00 tablet allopurinol 2019-08 No 1mg 100 mg 0-20 tablet 00:00: 00 pantoprazol 2019-08 No 1mg e 40 mg 0-20 tablet,shy 00:00: yed release 00 furosemide 2019-08 No 1mg 80 mg 0-20 tablet 00:00: 00 furosemide 2019-08 No 1mg 80 mg 0-20 tablet 00:00: 00 simethicone 2019-08 No 1mg 80 mg 0-20 chewable 00:00: tablet 00 ferrous 2019-08 No 1(65 mg sulfate 325 0-20 iron) mg (65 mg 00:00: iron) 00 tablet,shy yed release clindamycin No 1mg HCl 300 mg 7-21 capsule 00:00: 00 clindamycin 2020-0 No 1mg HCl 300 mg 7-21 capsule 00:00: 00 clindamycin 2020-0 No 1mg HCl 300 mg 7-14 capsule 00:00: 00 clindamycin 2020-0 No 1mg HCl 300 mg 7-14 capsule 00:00: 00 ferrous 2020-0 No 1(65 mg sulfate 325 7-08 iron) mg (65 mg 00:00: iron) 00 tablet,shy yed release ferrous 2020-0 No 1(65 mg sulfate 325 7-08 iron) mg (65 mg 00:00: iron) 00 tablet,shy yed release Levemir 2020-0 No 30unit/ U-100 7-07 mL Insulin 100 00:00: unit/mL 00 subcutaneou s solution amlodipine 2020-0 No 1mg 10 mg 7-07 tablet 00:00: 00 atorvastati 2020-0 No 1mg n 40 mg 7-07 tablet 00:00: 00 levetiracet 2020-0 No 1mg am 500 mg 7-07 tablet 00:00: 00 Dose 2020-0 No Unknown 7-07 00:00: 00 clonidine 2020-0 No 1mg HCl 0.2 mg 7-07 tablet 00:00: 00 Dose 2020-0 No Unknown 7-07 00:00: 00 clindamycin 2020-0 No 1mg HCl 300 mg 7-07 capsule 00:00: 00 Levemir 2020-0 No 30unit/ U-100 7-07 mL Insulin 100 00:00: unit/mL 00 subcutaneou s solution amlodipine 2020-0 No 1mg 10 mg 7-07 tablet 00:00: 00 atorvastati 2020-0 No 1mg n 40 mg 7-07 tablet 00:00: 00 levetiracet 2020-0 No 1mg am 500 mg 7-07 tablet 00:00: 00 Dose 2020-0 No Unknown 7-07 00:00: 00 clonidine 2020-0 No 1mg HCl 0.2 mg 7-07 tablet 00:00: 00 Dose 2020-0 No Unknown 7-07 00:00: 00 clindamycin 2020-0 No 1mg HCl 300 mg 7-07 capsule 00:00: 00 sulfamethox 2020-0 No 1mg azole 800 6-23 mg-trimetho 00:00: prim 160 mg 00 tablet glipizide 2020-0 No 1mg ER 5 mg 6-23 tablet, 00:00: extended 00 release 24 hr furosemide 2020-0 No 1mg 40 mg 6-23 tablet 00:00: 00 Dose 2020-0 No Unknown 6-23 00:00: 00 sulfamethox 2020-0 No 1mg azole 800 6-23 mg-trimetho 00:00: prim 160 mg 00 tablet glipizide 2020-0 No 1mg ER 5 mg 6-23 tablet, 00:00: extended 00 release 24 hr furosemide 2020-0 No 1mg 40 mg 6-23 tablet 00:00: 00 Dose 2020-0 No Unknown 6-23 00:00: 00 mupirocin 2 2020-0 No 1% % topical 6-18 ointment 00:00: 00 sulfamethox 2020-0 No 1mg azole 800 6-18 mg-trimetho 00:00: prim 160 mg 00 tablet mupirocin 2 2020-0 No 1% % topical 6-18 ointment 00:00: 00 sulfamethox 2020-0 No 1mg azole 800 6-18 mg-trimetho 00:00: prim 160 mg 00 tablet mupirocin 2 2020-0 No 1% % topical 6-16 ointment 00:00: 00 mupirocin 2 2020-0 No 1% % topical 6-16 ointment 00:00: 00 Bactrim DS 2020-0 No 1mg 800 mg-160 6-16 mg tablet 00:00: 00 Bactrim DS 2020-0 No 1mg 800 mg-160 6-16 mg tablet 00:00: 00 Bactrim DS 2020-0 No 1mg 800 mg-160 6-04 mg tablet 00:00: 00 Bactrim DS 2020-0 No 1mg 800 mg-160 6-04 mg tablet 00:00: 00 mupirocin 2 2020-0 No 1% % topical 6-01 ointment 00:00: 00 Cipro 500 2020-0 No 1mg mg tablet 6 00:00: 00 mupirocin 2 2020-0 No 1% % topical 6-01 ointment 00:00: 00 Cipro 500 2020-0 No 1mg mg tablet 6 00:00: 00 Levemir 2020-0 No 30unit/ U-100 4-21 mL Insulin 100 00:00: unit/mL 00 subcutaneou s solution Levemir 2020-0 No 30unit/ U-100 4-21 mL Insulin 100 00:00: unit/mL 00 subcutaneou s solution amlodipine 2020-0 No 1mg 10 mg 4-21 tablet 00:00: 00 atorvastati 2020-0 No 1mg n 40 mg 4-21 tablet 00:00: 00 Dose 2020-0 No Unknown 4-21 00:00: 00 levetiracet 2020-0 No 1mg am 500 mg 4-21 tablet 00:00: 00 carvedilol 2020-0 No 1mg 25 mg 4-21 tablet 00:00: 00 glipizide 2020-0 No 1mg 10 mg 4-21 tablet 00:00: 00 levetiracet 2020-0 No 1mg am 500 mg 4-21 tablet 00:00: 00 clonidine 2020-0 No 1mg HCl 0.2 mg 4-21 tablet 00:00: 00 furosemide 2020-0 No 1mg 40 mg 4-21 tablet 00:00: 00 isosorbide 2020-0 No 1mg mononitrate 4-21 ER 30 mg 00:00: tablet,exte 00 nded release 24 hr furosemide 2020-0 No 1mg 20 mg 4-21 tablet 00:00: 00 ciclopirox 2020-0 No 1% 8 % topical 4-21 solution 00:00: 00 Levemir 2020-0 No 30unit/ U-100 4-21 mL Insulin 100 00:00: unit/mL 00 subcutaneou s solution Levemir 2020-0 No 30unit/ U-100 4-21 mL Insulin 100 00:00: unit/mL 00 subcutaneou s solution amlodipine 2020-0 No 1mg 10 mg 4-21 tablet 00:00: 00 atorvastati 2020-0 No 1mg n 40 mg 4-21 tablet 00:00: 00 Dose 2020-0 No Unknown 4-21 00:00: 00 levetiracet 2020-0 No 1mg am 500 mg 4-21 tablet 00:00: 00 carvedilol 2020-0 No 1mg 25 mg 4-21 tablet 00:00: 00 glipizide 2020-0 No 1mg 10 mg 4-21 tablet 00:00: 00 levetiracet 2020-0 No 1mg am 500 mg 4-21 tablet 00:00: 00 clonidine 2020-0 No 1mg HCl 0.2 mg 4-21 tablet 00:00: 00 furosemide 2020-0 No 1mg 40 mg 4-21 tablet 00:00: 00 isosorbide 2020-0 No 1mg mononitrate 4-21 ER 30 mg 00:00: tablet,exte 00 nded release 24 hr furosemide 2020-0 No 1mg 20 mg 4-21 tablet 00:00: 00 ciclopirox 2020-0 No 1% 8 % topical 4-21 solution 00:00: 00 atorvastati 2020-0 No 1mg n 40 mg 3-14 tablet 00:00: 00 glipizide 2020-0 No 1mg 10 mg 3-14 tablet 00:00: 00 carvedilol 2020-0 No 1mg 25 mg 3-14 tablet 00:00: 00 furosemide 2020-0 No 1mg 40 mg 3-14 tablet 00:00: 00 carvedilol 2020-0 No 1mg 25 mg 3-14 tablet 00:00: 00 glipizide 2020-0 No 1mg 10 mg 3-14 tablet 00:00: 00 levetiracet 2020-0 No 1mg am 500 mg 3-14 tablet 00:00: 00 levetiracet 2020-0 No 1mg am 500 mg 3-14 tablet 00:00: 00 clonidine 2020-0 No 1mg HCl 0.2 mg 3-14 tablet 00:00: 00 clonidine 2020-0 No 1mg HCl 0.2 mg 3-14 tablet 00:00: 00 isosorbide 2020-0 No 1mg mononitrate 3-14 ER 30 mg 00:00: tablet,exte 00 nded release 24 hr furosemide 2020-0 No 1mg 40 mg 3-14 tablet 00:00: 00 furosemide 2020-0 No 1mg 40 mg 3-14 tablet 00:00: 00 isosorbide 2020-0 No 1mg mononitrate 3-14 ER 30 mg 00:00: tablet,exte 00 nded release 24 hr levetiracet 2020-0 No 1mg am 500 mg 3-14 tablet 00:00: 00 furosemide 2020-0 No 1mg 20 mg 3-14 tablet 00:00: 00 Levemir 2020-0 No 30unit/ U-100 3-14 mL Insulin 100 00:00: unit/mL 00 subcutaneou s solution amlodipine 2020-0 No 1mg 10 mg 3-14 tablet 00:00: 00 atorvastati 2020-0 No 1mg n 40 mg 3-14 tablet 00:00: 00 amlodipine 2020-0 No 1mg 10 mg 3-14 tablet 00:00: 00 atorvastati 2020-0 No 1mg n 40 mg 3-14 tablet 00:00: 00 glipizide 2020-0 No 1mg 10 mg 3-14 tablet 00:00: 00 carvedilol 2020-0 No 1mg 25 mg 3-14 tablet 00:00: 00 furosemide 2020-0 No 1mg 40 mg 3-14 tablet 00:00: 00 carvedilol 2020-0 No 1mg 25 mg 3-14 tablet 00:00: 00 glipizide 2020-0 No 1mg 10 mg 3-14 tablet 00:00: 00 levetiracet 2020-0 No 1mg am 500 mg 3-14 tablet 00:00: 00 levetiracet 2020-0 No 1mg am 500 mg 3-14 tablet 00:00: 00 clonidine 2020-0 No 1mg HCl 0.2 mg 3-14 tablet 00:00: 00 clonidine 2020-0 No 1mg HCl 0.2 mg 3-14 tablet 00:00: 00 isosorbide 2020-0 No 1mg mononitrate 3-14 ER 30 mg 00:00: tablet,exte 00 nded release 24 hr furosemide 2020-0 No 1mg 40 mg 3-14 tablet 00:00: 00 furosemide 2020-0 No 1mg 40 mg 3-14 tablet 00:00: 00 isosorbide 2020-0 No 1mg mononitrate 3-14 ER 30 mg 00:00: tablet,exte 00 nded release 24 hr levetiracet 2020-0 No 1mg am 500 mg 3-14 tablet 00:00: 00 furosemide 2020-0 No 1mg 20 mg 3-14 tablet 00:00: 00 Levemir 2020-0 No 30unit/ U-100 3-14 mL Insulin 100 00:00: unit/mL 00 subcutaneou s solution amlodipine 2020-0 No 1mg 10 mg 3-14 tablet 00:00: 00 atorvastati 2020-0 No 1mg n 40 mg 3-14 tablet 00:00: 00 amlodipine 0 No 1mg 10 mg 3-14 tablet 00:00: 00 Vital Signs Vital Name Observation Time Observation Value Comments Source Systolic blood 2020-10-10 11:41:00 152 mm[Hg] [facility] Diastolic blood 2020-10-10 11:41:00 93 mm[Hg] [facility] Heart rate 2020-10-10 11:41:00 89 /min [facility] Body temperature 2020-10-10 11:41:00 36.5 Kathy [facility] Respiratory rate 2020-10-10 11:41:00 16 /min [facility] Body height 2020-10-10 11:41:00 167.6 cm [facility] Body weight 2020-10-10 11:41:00 101.152 kg [facility] BMI 2020-10-10 11:41:00 35.99 kg/m2 [facility] Oxygen saturation in 2020-10-10 11:41:00 99 /min [facility] blood by [place] [employer] [facility] oxim[facility] Systolic blood 2020-10-10 11:41:00 152 mm[Hg] [facility] Diastolic blood 2020-10-10 11:41:00 93 mm[Hg] [facility] Heart rate 2020-10-10 11:41:00 89 /min [facility] Body temperature 2020-10-10 11:41:00 36.5 Kathy [facility] Respiratory rate 2020-10-10 11:41:00 16 /min [facility] Body height 2020-10-10 11:41:00 167.6 cm [facility] Body weight 2020-10-10 11:41:00 101.152 kg [facility] BMI 2020-10-10 11:41:00 35.99 kg/m2 [facility] Oxygen saturation in 2020-10-10 11:41:00 99 /min [facility] blood by [employer] [facility] BP Systolic 2022-03-23 20:35:00 130 mm[Hg] BP Diastolic 2022-03-23 20:35:00 83 mm[Hg] Weight Measured 2022-03-23 20:35:00 223.40 pounds Height Measured 2022-03-23 20:35:00 65.98 inches Body Temperature 2022-03-23 20:35:00 97.30 degrees Heart Rate 2022-03-23 20:35:00 98.00 /min Respiratory Rate 2022-03-23 20:35:00 21.00 /min BP Systolic 2022-03-23 15:59:00 130 mm[Hg] BP Diastolic 2022-03-23 15:59:00 83 mm[Hg] Weight Measured 2022-03-23 15:59:00 223.40 pounds Height Measured 2022-03-23 15:59:00 25.98 inches Body Temperature 2022-03-23 15:59:00 97.30 degrees Heart Rate 2022-03-23 15:59:00 98.00 /min Respiratory Rate 2022-03-23 15:59:00 21.00 /min BP Systolic 2022-02-20 11:24:00 134 mm[Hg] BP Diastolic 2022-02-20 11:24:00 80 mm[Hg] Weight Measured 2022-02-20 11:24:00 221.80 pounds Height Measured 2022-02-20 11:24:00 66.00 inches Body Temperature 2022-02-20 11:24:00 98.00 degrees Heart Rate 2022-02-20 11:24:00 96.00 /min Respiratory Rate 2022-02-20 11:24:00 16.00 /min BP Systolic 2022-01-15 14:35:00 88 mm[Hg] BP Diastolic 2022-01-15 14:35:00 58 mm[Hg] Weight Measured 2022-01-15 14:35:00 221.80 pounds Height Measured 2022-01-15 14:35:00 66.00 inches Body Temperature 2022-01-15 14:35:00 97.30 degrees Heart Rate 2022-01-15 14:35:00 87.00 /min Respiratory Rate 2022-01-15 14:35:00 BP Systolic 2021-12-30 08:03:00 122 mm[Hg] BP Diastolic 2021-12-30 08:03:00 80 mm[Hg] Weight Measured 2021-12-30 08:03:00 224.40 pounds Height Measured 2021-12-30 08:03:00 66.00 inches Body Temperature 2021-12-30 08:03:00 97.40 degrees Heart Rate 2021-12-30 08:03:00 86.00 /min Respiratory Rate 2021-12-30 08:03:00 BP Systolic 2021-11-06 16:38:00 89 mm[Hg] BP Diastolic 2021-11-06 16:38:00 53 mm[Hg] Weight Measured 2021-11-06 16:38:00 228.60 pounds Height Measured 2021-11-06 16:38:00 66.00 inches Body Temperature 2021-11-06 16:38:00 98.00 degrees Heart Rate 2021-11-06 16:38:00 80.00 /min Respiratory Rate 2021-11-06 16:38:00 16.00 /min BP Systolic 2021-10-23 09:27:00 93 mm[Hg] BP Diastolic 2021-10-23 09:27:00 59 mm[Hg] Weight Measured 2021-10-23 09:27:00 223.20 pounds Height Measured 2021-10-23 09:27:00 66.00 inches Body Temperature 2021-10-23 09:27:00 97.40 degrees Heart Rate 2021-10-23 09:27:00 74.00 /min Respiratory Rate 2021-10-23 09:27:00 BP Systolic 2021-06-10 09:52:00 102 mm[Hg] BP Diastolic 2021-06-10 09:52:00 64 mm[Hg] Weight Measured 2021-06-10 09:52:00 222.40 pounds Height Measured 2021-06-10 09:52:00 66.00 inches Body Temperature 2021-06-10 09:52:00 98.20 degrees Heart Rate 2021-06-10 09:52:00 95.00 /min Respiratory Rate 2021-06-10 09:52:00 17.00 /min BP Systolic 2021-04-22 10:13:00 96 mm[Hg] BP Diastolic 2021-04-22 10:13:00 58 mm[Hg] Weight Measured 2021-04-22 10:13:00 223.80 pounds Height Measured 2021-04-22 10:13:00 66.00 inches Body Temperature 2021-04-22 10:13:00 98.20 degrees Heart Rate 2021-04-22 10:13:00 82.00 /min Respiratory Rate 2021-04-22 10:13:00 BP Systolic 2021-03-20 09:24:00 119 mm[Hg] BP Diastolic 2021-03-20 09:24:00 72 mm[Hg] Weight Measured 2021-03-20 09:24:00 227.20 pounds Height Measured 2021-03-20 09:24:00 66.00 inches Body Temperature 2021-03-20 09:24:00 98.20 degrees Heart Rate 2021-03-20 09:24:00 83.00 /min Respiratory Rate 2021-03-20 09:24:00 17.00 /min BP Systolic 2020-12-20 14:19:00 113 mm[Hg] BP Diastolic 2020-12-20 14:19:00 70 mm[Hg] Weight Measured 2020-12-20 14:19:00 224.80 pounds Height Measured 2020-12-20 14:19:00 66.00 inches Body Temperature 2020-12-20 14:19:00 98.00 degrees Heart Rate 2020-12-20 14:19:00 85.00 /min Respiratory Rate 2020-12-20 14:19:00 17.00 /min BP Systolic 2020-10-15 16:15:00 96 mm[Hg] BP Diastolic 2020-10-15 16:15:00 58 mm[Hg] Weight Measured 2020-10-15 16:15:00 224.20 pounds Height Measured 2020-10-15 16:15:00 66.00 inches Body Temperature 2020-10-15 16:15:00 97.80 degrees Heart Rate 2020-10-15 16:15:00 81.00 /min Respiratory Rate 2020-10-15 16:15:00 17.00 /min Procedures Procedure Date / Time Performed Performing Clinician [facility] e [id number] 2021-04-16:00:00 [facility] [id number] 2021-04-14 00:00:00 [facility] [id number] 2021-04-12 00:00:00 [facility] [id number] 2021-04-12 00:00:00 [facility] [id number] 2021-04-12 00:00:00 [facility] [id number] 2021-04-12 00:00:00 [facility] [id number] 2021-04-11 00:00:00 [facility] [id number] 2021-04-10 00:00:00 [facility] [id number] 2021-04-10 00:00:00 [facility] [id number] 2021-04-10 00:00:00 [facility] NOTICE OF PRIVACY 2020-10-10 11:34:50 Doctor Unassigned, No [facility] [place] [facility] CONSENT/REFUSAL FOR 2020-10-10 11:33:32 Doctor Unassigned, No [facility] [place] DIAGNOS[facility] AND Name [facility] TREATMENT Plan of Care Planned Activity Planned Date Details Comments Source Goal Plan of Care Note [code = 61428-3] Goal Plan of Care Note [code = 88065-8] Goal Plan of Care Note [code = 59263-1] Goal Plan of Care Note [code = 22646-1] Goal Plan of Care Note [code = 49256-9] Goal Plan of Care Note [code = 23559-6] Goal Plan of Care Note [code = 18130-6] Goal Plan of Care Note [code = 99043-3] Goal Plan of Care Note [code = 78852-3] Goal Plan of Care Note [code = 89480-0] Goal Plan of Care Note [code = 69811-9] Goal Plan of Care Note [code = 00152-7] Goal Plan of Care Note [code = 84547-3] Goal Plan of Care Note [code = 32786-3] Goal Plan of Care Note [code = 20867-5] Goal Plan of Care Note [code = 75510-7] Goal Plan of Care Note [code = 44404-5] Goal Plan of Care Note [code = 18275-3] Goal Plan of Care Note [code = 80808-2] Goal Plan of Care Note [code = 84130-5] Goal Plan of Care Note [code = 47695-9] Goal Plan of Care Note [code = 96231-0] Goal Plan of Care Note [code = 65857-2] Goal Plan of Care Note [code = 06958-6] Goal Plan of Care Note [code = 13882-7] Goal Plan of Care Note [code = 03815-6] Goal Plan of Care Note [code = 73309-6] Goal Plan of Care Note [code = 44375-0] Goal Plan of Care Note [code = 82860-6] Goal Plan of Care Note [code = 77490-9] Goal Plan of Care Note [code = 43695-6] Goal Plan of Care Note [code = 35890-4] Goal Plan of Care Note [code = 89233-1] Goal Plan of Care Note [code = 24325-4] Goal Plan of Care Note [code = 93236-9] Goal Plan of Care Note [code = 53989-4] Goal Plan of Care Note [code = 94263-7] Goal Plan of Care Note [code = 94926-8] Goal Plan of Care Note [code = 23425-4] Goal Plan of Care Note [code = 86028-3] Goal Plan of Care Note [code = 84106-3] Goal Plan of Care Note [code = 55928-6] Goal Plan of Care Note [code = 36650-2] Goal Plan of Care Note [code = 87488-3] Goal Plan of Care Note [code = 73198-9] Goal Plan of Care Note [code = 77936-5] Goal Plan of Care Note [code = 70872-9] Goal Plan of Care Note [code = 04778-2] Goal Plan of Care Note [code = 53462-8] Goal Plan of Care Note [code = 52221-6] Goal Plan of Care Note [code = 74492-3] Goal Plan of Care Note [code = 23651-0] Goal Plan of Care Note [code = 12789-1] Goal Plan of Care Note [code = 95976-9] Goal Plan of Care Note [code = 98343-1] Goal Plan of Care Note [code = 59595-4] Encounters Start End Encounter Admission Attending Care Care Encounter Source Date/Time Date/Time Type Type Clinicians Facility Department ID 2022-03-23 2022-03-23 Outpatient [id number] 00:00:00 00:00:00 Visit 1acd-[id number] acd-45e6-a -[id number]-fwz [id number] 9c06e0 2022-02-20 2022-02-20 Outpatient [id number] [id number] 00:00:00 00:00:00 Visit 1n94-2cd1 [id number] -9c61-b32 [id number] 2021-04-17 Inpatient EM Monica Bardales HCAW[facility] TELE [id number] [facility] 23:30:00 17:46:00 [id number] [facility] 2021-04-10 2021-04-17 Inpatient EM Monica Bardales [facility]CA[facility] TELE [id number] [facility] 23:30:00 17:46:00 54 [facility] 2020-10-10 2020-10-10 Emergency [facility], [facility] [id number] [facility] 05:46:00 06:35:00 Rubi Sales [id number] ity [facility] [id number] [facility] [id number] [address] 2020-10-10 2020-10-10 Emergency [facility] [id number] 05:46:00 06:35:00 Rubi Sales [id number] [place] [id number] [place] [id number] [facility] 2020-10-10 2020-10-10 Emergency X [facility] ERT [id number] [facility] 05:31:00 05:31:00 [facility] 2020-09-23 2020-09-23 Outpatient Altagracia, YOLANDAWRey SURG [id number] [facility] 10:30:00 10:30:00 Gaudencio [id number] [facility] Results Test Description Test Time Test Comments Results Result Comments Source HEMOGLOBIN A1c 2021-12-31 07:34:00 Test Item Value Reference Range Interpretation Comme nts HEMOGLOBIN A1c (test code = 18442) 5.7 % 4.2-5.6 H LIPID [id number] 07:05:21 Test Item Value Reference Range Interpretation Comments CHOLESTEROL (test 84 MG/DL <200 code = 2210) TRIGLYCERIDES (test 63 MG/DL <150 code = 2232) HDL CHOLESTEROL (test 37 MG/DL >39 L code = 2220) CALC LDL CHOL (test 33 MG/DL <100 NOTE: C ALCULATED LDL code = 2237) IS BASED ON JAYA-STAHL METHOD WHICHINCLUDES ADJUSTABLE TRIGLYCERIDE:VL DL CHOLESTEROL RAT IO.THIS FACTOR VARIES B Y MEASURED TRIGLY CERIDE AND NON-HDLCHOL ESTEROL CONCENTRATIONS WITH INCREASED CALCU LATED LDL SEENIN HIGH ER TRIGLYCERIDE OR LOWER NON-HDL SPECIME NS. FOR MOREINFORMATION , SEE CLIENT ANNOUNCE MENT AT [email or web address] [email or web address] [email or web address] LDL/HDL 0.89 RATIO <3.55 (test code = 2238) COMPREHENSIVE METABOLIC [id number] 07:05:21 Test Item Value Reference Range Interpretation Comments GLUCOSE (test code = 143 MG/DL 70-99 H 2216) BUN (test code = 61 MG/DL 8-23 H 2207) CREATININE (test 7.42 MG/DL 0.80-1.40 H code = 2214) eGFR (2020 CKD-EPI) 7 ML/MIN/1.73 >60 L (test code = 15937) CALC BUN/CREAT (test 8 RATIO 6-28 code = 2235) SODIUM (test code = 144 MEQ/L 922-194 1818) POTASSIUM (test code 4.5 MEQ/L 3.5-5.4 = 2228) CHLORIDE (test code 105 MEQ/L 95-107 = 2215) CARBON DIOXIDE (test 21 MEQ/L 19-31 code = 2206) CALCIUM (test code = 9.4 MG/DL 8.5-10.5 2208) PROTEIN, TOTAL (test 7.1 G/DL 6.1-8.3 code = 2229) ALBUMIN (test code = 3.7 G/DL 3.5-5.2 2200) CALC GLOBULIN (test 3.4 G/DL 1.9-3.7 code = 2240) CALC A/G RATIO (test 1.1 RATIO 1.0-2.6 code = 2234) BILIRUBIN, TOTAL 0.4 MG/DL See_Comment [Automated message] (test code = 220) The syste m which generated this result transmitted ref erence range: <=1.2. T he reference range was not used to int erpret this result as normal/abnormal . ALKALINE PHOSPHATASE 124 U/L 40-125 (test code = 2203) AST (test code = 22 U/L 9-50 2217) ALT (test code = 33 U/L 5-50 UNLESS OTH ERWISE 2218) INDICATED, ALL TESTING PERFORM [facility] [address] [place] [address] DIRECTOR: Jorge L TREVINOIA NUMBER [id number] CAP ACCREDITATION N O. [id number] HEMOGLOBIN [id number] 00:00:00 Test Item Value Reference Range Interpretation Comments HEMOGLOBIN A1c (test code = 35313) 5.7 % HEMOGLOBIN [id number] 00:00:00 Test Item Value Reference Range Interpretation Comments HEMOGLOBIN A1c (test code = 85363) 5.7 % LIPID [id number] 00:00:00 Test Item Value Reference Range Interpretation Comments CHOLESTEROL (test code = 2210) 84 MG/DL TRIGLYCERIDES (test code = 2232) 63 MG/DL HDL CHOLESTEROL (test code = 2220) 37 MG/DL CALC LDL CHOL (test code = 2237) 33 MG/DL RISK RATIO LDL/HDL (test code = 0.89 RATIO 8) COMPREHENSIVE METABOLIC [id number] 00:00:00 Test Item Value Reference Range Interpretation Comments GLUCOSE (test code = 2217) 143 MG/DL BUN (test code = 2208) 61 MG/DL CREATININE (test code = 2214) 7.42 MG/DL eGFR (2020 CKD-EPI) (test code 7 ML/MIN/1.73 = 46934) CALC BUN/CREAT (test code = 8 RATIO 2235) SODIUM (test code = 2231) 144 MEQ/L POTASSIUM (test code = 2228) 4.5 MEQ/L CHLORIDE (test code = 2215) 105 MEQ/L CARBON DIOXIDE (test code = 21 MEQ/L 2205) CALCIUM (test code = 2209) 9.4 MG/DL PROTEIN, TOTAL (test code = 7.1 G/DL 2228) ALBUMIN (test code = 220) 3.7 G/DL CALC GLOBULIN (test code = 3.4 G/DL 2239) CALC A/G RATIO (test code = 1.1 RATIO 2233) BILIRUBIN, TOTAL (test code = 0.4 MG/DL 2206) ALKALINE PHOSPHATASE (test code 124 U/L = 2203) AST (test code = 2218) 22 U/L ALT (test code = 2219) 33 U/L HEMOGLOBIN [id number] 00:00:00 Test Item Value Reference Range Interpretation Comments HEMOGLOBIN A1c (test code = 35981) 5.7 % HEMOGLOBIN [id number] 00:00:00 Test Item Value Reference Range Interpretation Comments HEMOGLOBIN A1c (test code = 39103) 5.7 % LIPID [id number] 00:00:00 Test Item Value Reference Range Interpretation Comments CHOLESTEROL (test code = 2210) 84 MG/DL TRIGLYCERIDES (test code = 2232) 63 MG/DL HDL CHOLESTEROL (test code = 2220) 37 MG/DL CALC LDL CHOL (test code = 2237) 33 MG/DL RISK RATIO LDL/HDL (test code = 0.89 RATIO 2238) COMPREHENSIVE METABOLIC [id number] 00:00:00 Test Item Value Reference Range Interpretation Comments GLUCOSE (test code = 2217) 143 MG/DL BUN (test code = 2208) 61 MG/DL CREATININE (test code = 2214) 7.42 MG/DL eGFR (2020 CKD-EPI) (test code 7 ML/MIN/1.73 = 66951) CALC BUN/CREAT (test code = 8 RATIO 2235) SODIUM (test code = 2231) 144 MEQ/L POTASSIUM (test code = 2228) 4.5 MEQ/L CHLORIDE (test code = 2215) 105 MEQ/L CARBON DIOXIDE (test code = 21 MEQ/L 2205) CALCIUM (test code = 2209) 9.4 MG/DL PROTEIN, TOTAL (test code = 7.1 G/DL 2228) ALBUMIN (test code = 220) 3.7 G/DL CALC GLOBULIN (test code = 3.4 G/DL 2239) CALC A/G RATIO (test code = 1.1 RATIO 2233) BILIRUBIN, TOTAL (test code = 0.4 MG/DL 2206) ALKALINE PHOSPHATASE (test code 124 U/L = 2204) AST (test code = 2218) 22 U/L ALT (test code = 221) 33 U/L MICROALBUMIN/CREATININE, RANDOM AND [id number] 00:00:00 Test Item Value Reference Range Interpretation Comments CREATININE, URINE, RANDOM (test 317.5 MG/DL code = 2072) ALBUMIN, URINE, RANDOM (test code 22.9 MG/DL = 32233) CALC ALBUMIN/CREAT, RND (test 72 MG/G code = 88225) MICROALBUMIN/CREATININE, RANDOM AND [id number] 00:00:00 Test Item Value Reference Range Interpretation Comments CREATININE, URINE, RANDOM (test 317.5 MG/DL code = 2072) ALBUMIN, URINE, RANDOM (test code 22.9 MG/DL = 12530) CALC ALBUMIN/CREAT, RND (test 72 MG/G code = 49638) URIC [id number] 00:00:00 Test Item Value Reference Range Interpretation Comments URIC ACID (test code = 2233) 5.1 MG/DL COMPREHENSIVE METABOLIC [id number] 00:00:00 Test Item Value Reference Range Interpretation Comments GLUCOSE (test code = 2217) 80 MG/DL BUN (test code = 2208) 58 MG/DL CREATININE (test code = 2214) 8.56 MG/DL eGFR (2020 CKD-EPI) (test code 6 ML/MIN/1.73 = 70889) CALC BUN/CREAT (test code = 7 RATIO 2235) SODIUM (test code = 2231) 143 MEQ/L POTASSIUM (test code = 2228) 4.4 MEQ/L CHLORIDE (test code = 2215) 99 MEQ/L CARBON DIOXIDE (test code = 21 MEQ/L 2205) CALCIUM (test code = 2209) 8.9 MG/DL PROTEIN, TOTAL (test code = 7.2 G/DL 2228) ALBUMIN (test code = 2201) 4.1 G/DL CALC GLOBULIN (test code = 3.1 G/DL 2240) CALC A/G RATIO (test code = 1.3 RATIO 223) BILIRUBIN, TOTAL (test code = 0.4 MG/DL 2206) ALKALINE PHOSPHATASE (test code 125 U/L = 2203) AST (test code = 2218) 15 U/L ALT (test code = 2219) 46 U/L LIPID [id number] 00:00:00 Test Item Value Reference Range Interpretation Comments CHOLESTEROL (test code = 2210) 98 MG/DL TRIGLYCERIDES (test code = 2232) 78 MG/DL HDL CHOLESTEROL (test code = 2220) 35 MG/DL CALC LDL CHOL (test code = 2237) 47 MG/DL RISK RATIO LDL/HDL (test code = 1.34 RATIO 2237) HEMOGLOBIN [id number] 00:00:00 Test Item Value Reference Range Interpretation Comments HEMOGLOBIN A1c (test code = 89147) 6.2 % HEMOGLOBIN [id number] 00:00:00 Test Item Value Reference Range Interpretation Comments HEMOGLOBIN A1c (test code = 50740) 6.2 % URIC [id number] 00:00:00 Test Item Value Reference Range Interpretation Comments URIC ACID (test code = 2233) 5.1 MG/DL COMPREHENSIVE METABOLIC [id number] 00:00:00 Test Item Value Reference Range Interpretation Comments GLUCOSE (test code = 2217) 80 MG/DL BUN (test code = 2208) 58 MG/DL CREATININE (test code = 2214) 8.56 MG/DL eGFR (2020 CKD-EPI) (test code 6 ML/MIN/1.73 = 93378) CALC BUN/CREAT (test code = 7 RATIO 2235) SODIUM (test code = 2231) 143 MEQ/L POTASSIUM (test code = 2228) 4.4 MEQ/L CHLORIDE (test code = 2215) 99 MEQ/L CARBON DIOXIDE (test code = 21 MEQ/L 2205) CALCIUM (test code = 220) 8.9 MG/DL PROTEIN, TOTAL (test code = 7.2 G/DL 2228) ALBUMIN (test code = 2201) 4.1 G/DL CALC GLOBULIN (test code = 3.1 G/DL 2240) CALC A/G RATIO (test code = 1.3 RATIO 2234) BILIRUBIN, TOTAL (test code = 0.4 MG/DL 2206) ALKALINE PHOSPHATASE (test code 125 U/L = 2204) AST (test code = 2218) 15 U/L ALT (test code = 2219) 46 U/L LIPID [id number] 00:00:00 Test Item Value Reference Range Interpretation Comments CHOLESTEROL (test code = 2210) 98 MG/DL TRIGLYCERIDES (test code = 2232) 78 MG/DL HDL CHOLESTEROL (test code = 2220) 35 MG/DL CALC LDL CHOL (test code = 2237) 47 MG/DL RISK RATIO LDL/HDL (test code = 1.34 RATIO 2238) HEMOGLOBIN [id number] 00:00:00 Test Item Value Reference Range Interpretation Comments HEMOGLOBIN A1c (test code = 09568) 6.2 % HEMOGLOBIN [id number] 00:00:00 Test Item Value Reference Range Interpretation Comments HEMOGLOBIN A1c (test code = 60887) 6.2 % HEMOGLOBIN [id number] 00:00:00 Test Item Value Reference Range Interpretation Comments HEMOGLOBIN A1c (test code = 83729) 7.3 % HEMOGLOBIN [id number] 00:00:00 Test Item Value Reference Range Interpretation Comments HEMOGLOBIN A1c (test code = 22423) 7.3 % LIPID [id number] 00:00:00 Test Item Value Reference Range Interpretation Comments CHOLESTEROL (test code = 2210) 106 MG/DL TRIGLYCERIDES (test code = 2232) 120 MG/DL HDL CHOLESTEROL (test code = 2220) 37 MG/DL CALC LDL CHOL (test code = 2237) 48 MG/DL RISK RATIO LDL/HDL (test code = 1.30 RATIO 2238) HEMOGLOBIN [id number] 00:00:00 Test Item Value Reference Range Interpretation Comments HEMOGLOBIN A1c (test code = 75001) 7.3 % HEMOGLOBIN [id number] 00:00:00 Test Item Value Reference Range Interpretation Comments HEMOGLOBIN A1c (test code = 16651) 7.3 % LIPID [id number] 00:00:00 Test Item Value Reference Range Interpretation Comments CHOLESTEROL (test code = 2210) 106 MG/DL TRIGLYCERIDES (test code = 2232) 120 MG/DL HDL CHOLESTEROL (test code = 2220) 37 MG/DL CALC LDL CHOL (test code = 2237) 48 MG/DL RISK RATIO LDL/HDL (test code = 1.30 RATIO 2238) GLUCOSE BEDSIDE [id number] 16:16:00 Test Item Value Reference Range Interpretation Comments GLUCOSE BEDSIDE TESTING (test code 153 MG/DL 60-99 H = GLUBED) GLUCOSE BEDSIDE [id number] 10:53:00 Test Item Value Reference Range Interpretation Comments GLUCOSE BEDSIDE TESTING (test code 167 MG/DL 60-99 H = GLUBED) GLUCOSE BEDSIDE [id number] 07:16:00 Test Item Value Reference Range Interpretation Comments GLUCOSE BEDSIDE TESTING (test code 101 MG/DL 60-99 H = GLUBED) GLUCOSE BEDSIDE [id number] 20:21:00 Test Item Value Reference Range Interpretation Comments GLUCOSE BEDSIDE TESTING (test code 131 MG/DL 60-99 H = GLUBED) - NM MUGA R/S [id number] 16:47:00 [facility] 1955 Sex: M Patient Name: JAROD GOTTLIEB Unit No: [id number] EXAMS: CPT CODE: [id number] NM MUGA R/S SINGLE [id number]: Ventricular malfunction. MUGA scan: RADIOPHARMACEUTICAL: 24.5mCi [id number]-Dexgecad RBC COMPARISON: None. LOCATION: C3 FINDINGS: Following [...] 2.5 EDV per second) and the time to peak filling is 126 msec (normal less than 180 msec). IMPRESSION: 1. Abnormal MUGA scan with LVEF of 29%. at 1647 Reported and signed by: Johan Fang MD CC: Desmond Loen MD; [place] GREEN Technologist: Manuel Bain ARRT; Parminder Grant, RT(N) Transcrpt Date/Tm/Trnsp: 04/16/2021 (1646) [id number] Orig Print D/T: S: 04/16/2021 (165) [facility] NAME: JAROD GOTTLIEB [id number] [address] PHYS: [place] [address] : 1955 AGE: 65 SEX: M LOC: [id number] PHONE#: [phone] EXAM DATE: 04/16/2021 STATUS: ADM IN FAX #: [phone] RADIOLOGY NO: PAGE 1 SignedReportGLUCOSE BEDSIDE [id number] 16:43:00 Test Item Value Reference Range Interpretation Comments GLUCOSE BEDSIDE TESTING (test code 157 MG/DL 60-99 H = GLUBED) GLUCOSE BEDSIDE [id number] 13:45:00 Test Item Value Reference Range Interpretation Comments GLUCOSE BEDSIDE TESTING (test code 214 MG/DL 60-99 H = GLUBED) GLUCOSE BEDSIDE [id number] 07:33:00 Test Item Value Reference Range Interpretation Comments GLUCOSE BEDSIDE TESTING (test code 104 MG/DL 60-99 H = GLUBED) CBC W/AUTO [id number] 05:50:00 Test Item Value Reference Range Interpretation [...] 0.00 K/mm3 0.0-0.1 N NRBC#) BASIC METABOLIC [id number] 05:49:00 Test Item Value Reference Range Interpretation [...] 8.8 MG/DL 8.4-10.2 N CA) GLUCOSE BEDSIDE [id number] 19:53:00 Test Item Value Reference Range Interpretation Comments GLUCOSE BEDSIDE TESTING (test code 176 MG/DL 60-99 H = GLUBED) GLUCOSE BEDSIDE [id number] 15:17:00 Test Item Value Reference Range Interpretation Comments GLUCOSE BEDSIDE TESTING (test code 140 MG/DL 60-99 H = GLUBED) GLUCOSE BEDSIDE [id number] 11:46:00 Test Item Value Reference Range Interpretation Comments GLUCOSE BEDSIDE TESTING (test code 192 MG/DL 60-99 H = GLUBED) ARTERIAL BLOOD [id number] 11:00:00 Test Item Value Reference Range Interpretation [...] SATA) ABG DELIVERY (test BIPAP code = SHY) ABG VENT RESP RATE 12.0 /MIN (test code = RRA) ABG PEEP (test code = 8.0 cmH2O PEEPA) ABG PRESSURE SUPPORT 12 cmH2O (test code = PSABG) ABG TEMPERATURE (test 37.0 C See_Comment [Auto mated message] code = TEMPA) The system [facility] generated this result transmit jose juan reference range : 37. The reference r yasmani was not used to interpret this result as normal/abnormal . ABG SITE (test code = RR SITEA) ALLENS TEST (test Y CHECK code = ALLENS) FIO2 (test code = 60 % COHBGFFIO2) PaO2/[id number] 11:00:00 Test Item Value Reference Range Interpretation Comments PaO2/FiO2 (test code = [id number]) 463.50 mm/Hg ARTERIAL BLOOD [id number] 10:53:00 Test Item Value Reference Range Interpretation [...] AM ABG DELIVERY (test BIPAP code = SHY) ABG VENT RESP RATE 12.0 /MIN (test [...] FIO2 (test code = 50 % COHBGFFIO2) PaO2/[id number] 10:53:00 Test Item Value Reference Range Interpretation Comments PaO2/FiO2 (test code = [id number]) 239.80 mm/Hg GLUCOSE BEDSIDE [id number] 07:25:00 Test Item Value Reference Range Interpretation Comments GLUCOSE BEDSIDE TESTING (test code 105 MG/DL 60-99 H = GLUBED) GLUCOSE BEDSIDE [id number] 22:06:00 Test Item Value Reference Range Interpretation Comments GLUCOSE BEDSIDE TESTING (test code 171 MG/DL 60-99 H = GLUBED) GLUCOSE BEDSIDE [id number] 15:26:00 Test Item Value Reference Range Interpretation Comments GLUCOSE BEDSIDE TESTING (test code 137 MG/DL 60-99 H = GLUBED) GLUCOSE BEDSIDE [id number] 11:30:00 Test Item Value Reference Range Interpretation Comments GLUCOSE BEDSIDE TESTING (test code 152 MG/DL 60-99 H = GLUBED) BASIC METABOLIC [id number] 10:51:00 Test Item Value Reference Range Interpretation [...] 8.4 MG/DL 8.4-10.2 N CA) GLUCOSE BEDSIDE [id number] 07:50:00 Test Item Value Reference Range Interpretation Comments GLUCOSE BEDSIDE TESTING (test code = 88 MG/DL 60-99 N GLUBED) GLUCOSE BEDSIDE [id number] 19:41:00 Test Item Value Reference Range Interpretation Comments GLUCOSE BEDSIDE TESTING (test code 127 MG/DL 60-99 H = GLUBED) GLUCOSE BEDSIDE [id number] 16:56:00 Test Item Value Reference Range Interpretation Comments GLUCOSE BEDSIDE TESTING (test code 128 MG/DL 60-99 H = GLUBED) GLUCOSE BEDSIDE [id number] 11:27:00 Test Item Value Reference Range Interpretation Comments GLUCOSE BEDSIDE TESTING (test code 136 MG/DL 60-99 H = GLUBED) - XR CHEST 2 [id number] 09:56:00 [facility] 1955 Sex: M Patient Name: JAROD GOTTLIEB Unit No: [id number] EXAMS: CPT CODE: [id number] XR CHEST 2 V 77891 C3 TIME OF STUDY: 04/13/2021 9:00 AM REASON FOR EXAM: EFFUSION COMPARISON: April 11, 2021 FINDINGS: PA and lateral upright views of the chest were obtained. Support devices: Stable. Lungs: There is interval improvement in bilateral airspace opacities. Pleura: No pneumothorax. There is a small left pleuraleffusion. Heart and Mediastinum: Stable cardiomegaly. Bones: Normal regional skeletal structures. IMPRESSION: 1. Interval improvement in chest radiograph. Small left pleural effusion. at 0956 Reported and signed by: Shaw Abreu MD CC: Halie Hidalgo MD; Desmond Leon MD Technologist: Ethan Mcneill (RT) (R) Transcrpt Date/Tm/Trnsp: 04/13/2021 (0956) [email or web address] Orig Print D/T: S: 04/13/2021 (0959) [facility] NAME: JAROD GOTTLIEB [id number] PHYS: [place] [address] : 1955 AGE: 65 SEX: M LOC: [id number] PHONE #: [phone] EXAM DATE: 04/13/2021 STATUS: ADM IN FAX #: [phone] RADIOLOGY NO: PAGE 1 Signed ReportGLUCOSE BEDSIDE [id number] 07:30:00 Test Item Value Reference Range Interpretation Comments GLUCOSE BEDSIDE TESTING (test code 117 MG/DL 60-99 H = GLUBED) BASIC METABOLIC [id number] 05:41:00 Test Item Value Reference Range Interpretation [...] 9.2 MG/DL 8.4-10.2 N CA) CBC W/AUTO [id number] 05:29:00 Test Item Value Reference Range Interpretation [...] 0.00 K/mm3 0.0-0.1 N NRBC#) GLUCOSE BEDSIDE [id number] 20:06:00 Test Item Value Reference Range Interpretation Comments GLUCOSE BEDSIDE TESTING (test code 147 MG/DL 60-99 H = GLUBED) GLUCOSE BEDSIDE [id number] 16:50:00 Test Item Value Reference Range Interpretation Comments GLUCOSE BEDSIDE TESTING (test code 139 MG/DL 60-99 H = GLUBED) COVID 19 Asymptomatic IH [id number] 16:16:00 Test Item Value Reference Range Interpretation Comments COVID 19 NEGATIVE Negative "Negative resul ts from Asymptomatic IH AG patients with symptom (test code = onset beyondfiv e days, COVNONPUIAG) should be treat ed as presumptive, andconfirmation with a molecular assay [...] CARE STAFF: SHARRON HutchinsON 04/12/21755 BY Hemanth [id number] 15:29:00 Test Item Value Reference Range Interpretation Comments PHOSPHOROUS (test code = PHOS) 6.3 MG/DL 2.5-4.5 H UNABLE TO DRAW BLOOD, REASON: PT TRANSFER TO CATHNOTIFIED PATIENT CARE STAFF: SHARRON HutchinsON 04/12/21755 BY Hemanth [id number] 15:29:00 Test Item Value Reference Range Interpretation Comments MAGNESIUM (test code = MAG) 2.3 MG/DL 1.6-2.3 N UNABLE TO DRAW BLOOD, REASON: PT TRANSFER TO CATHNOTIFIED PATIENT CARE STAFF: SHARRON HutchinsON 04/12/21755 BY Meir MalinROTHROMBIN [id number] 15:17:00 Test Item Value Reference Range Interpretation Comments PROTHROMBIN TIME 14.3 SECONDS 9.5-12.7 H PATIENT (test code = PTP) INTERNATIONAL NORMAL 1.3 0.86-1.14 H The INR is to be RATIO (test code = used only for INR) monitoring oral anticoagulantth erap y. INDICATION I NR VALUE ---- ---- ---- -------1. Prophylaxis, de ep venous thrombos is, including high risk surgery. 2.0 - 3.0 2. Prophylaxis, deep venous thrombosis, hip surgery, treatm ent for deep venous thrombosis or pulmonary prevention of systemic emboli sm in patients wit h valvular heart disease, atrial fibrillation, tissue heart va lve, or acute myocar dial infarction. 2.0 - 3.0 3. 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 3.0 - 4.5 UNABLE TO DRAW BLOOD, REASON: PT TRANSFER TO CATHNOTIFIED PATIENT CARE STAFF: SHARRON HutchinsON 04/12/21755 BY Adelina Malin [id number] 15:17:00 Test Item Value Reference Range Interpretation Comments PTT ACTIVATED (test code = APTT) 47.4 SECONDS 25.1-36.5 H UNABLE TO DRAW BLOOD, REASON: PT TRANSFER TO CATHNOTIFIED PATIENT CARE STAFF: SHARRON HutchinsON 04/12/21755 BY Madhu MalinLACTIC [id number] 15:17:00 Test Item Value Reference Range Interpretation Comments LACTIC ACID (test code = LACT) 1.4 MMOL/L 0.7-2.1 N CBC W/AUTO [id number] 14:57:00 Test Item Value Reference Range Interpretation [...] TO DRAW BLOOD, REASON: PT TRANSFER TO [facility] PATIENT CARE STAFF: SHARRON HutchinsON 04/12/21AT 0757 BY Madhu MalinGLUCOSE BEDSIDE [id number] 12:15:00 Test Item Value Reference Range Interpretation Comments GLUCOSE BEDSIDE TESTING (test code 104 MG/DL 60-99 H = GLUBED) GLUCOSE BEDSIDE [id number] 11:18:00 Test Item Value Reference Range Interpretation Comments GLUCOSE BEDSIDE TESTING (test code = 56 MG/DL 60-99 L GLUBED) GLUCOSE BEDSIDE [id number] 09:13:00 Test Item Value Reference Range Interpretation Comments GLUCOSE BEDSIDE TESTING (test code = 70 MG/DL 60-99 N GLUBED) LACTIC [id number] 05:32:00 Test Item Value Reference Range Interpretation Comments LACTIC ACID (test code = LACT) 2.1 MMOL/L 0.7-2.1 N UNABLE TO DRAW BLOOD, REASON: CBNNOTIFIED PATIENT CARE STAFF: YOAV 04/12/21 AT 0209 BY Devon Charlton [id number] 21:43:00 Test Item Value Reference Range Interpretation Comments LACTIC ACID (test code = LACT) 3.7 MMOL/L 0.7-2.1 H GLUCOSE BEDSIDE [id number] 21:30:00 Test Item Value Reference Range Interpretation Comments GLUCOSE BEDSIDE TESTING (test code 175 MG/DL 60-99 H = GLUBED) LACTIC [id number] 18:53:00 Test Item Value Reference Range Interpretation Comments LACTIC ACID (test code = LACT) 3.7 MMOL/L 0.7-2.1 H PROTHROMBIN [id number] 18:37:00 Test Item Value Reference Range Interpretation Comments PROTHROMBIN TIME 15.8 SECONDS 9.5-12.7 H PATIENT (test code = PTP) INTERNATIONAL NORMAL 1.4 0.86-1.14 H The INR is to be RATIO (test code = used only for INR) monitoring oral anticoagulantth erap y. INDICATION I NR VALUE ---- ---- ---- -------1. Prophylaxis, de ep venous thrombos is, including high risk surgery. 2.0 - 3.0 2. Prophylaxis, deep venous thrombosis, hip surgery, treatm ent for deep venous thrombosis or pulmonary prevention of systemic emboli sm in patients wit h valvular heart disease, atrial fibrillation, tissue heart va lve, or acute myocar dial infarction. 2.0 - 3.0 3. 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 3.0 - 4.5 UNABLE TO DRAW BLOOD, REASON: CBNNOTIFIED PATIENT CARE STAFF: [facility] 04/11/21 AT 180 BY Pricilla JonesaPTT [id number] 18:37:00 Test Item Value Reference Range Interpretation Comments PTT ACTIVATED (test code = APTT) 56.3 SECONDS 25.1-36.5 H UNABLE TO DRAW BLOOD, REASON: CBNNOTIFIED PATIENT CARE STAFF: ARLEEN 04/11/21 AT 1808 BY Domenico JonesRTERIAL BLOOD [id number] 17:57:00 Test Item Value Reference Range Interpretation [...] SATA) ABG DELIVERY (test BIPAP code = SHY) ABG VENT RESP RATE 12.0 /MIN (test code = RRA) ABG PEEP (test code = 8.0 cmH2O PEEPA) ABG TEMPERATURE (test 37.0 C See_Comment [Auto mated message] code = TEMPA) The system [employer] generated this result transmit jose juan reference range : 37. The reference r yasmani was not used to interpret this result as normal/abnormal . ABG SITE (test code = RR SITEA) ALLENS TEST (test Y CHECK code = ALLENS) FIO2 (test code = 60 % COHBGFFIO2) PaO2/[id number] 17:57:00 Test Item Value Reference Range Interpretation Comments PaO2/FiO2 (test code = [id number]) mm/Hg ARTERIAL BLOOD [id number] 17:57:00 Test Item Value Reference Range Interpretation [...] SATA) ABG DELIVERY (test BIPAP code = SHY) ABG VENT RESP RATE 12.0 /MIN (test code = RRA) ABG PEEP (test code = 8.0 cmH2O PEEPA) ABG TEMPERATURE (test 37.0 C See_Comment [Auto mated message] code = TEMPA) The system [employer] generated this result transmit jose juan reference range : 37. The reference r yasmani was not used to interpret this result as normal/abnormal . ABG SITE (test code = RR SITEA) ALLENS TEST (test Y CHECK code = ALLENS) FIO2 (test code = 60 % COHBGFFIO2) PaO2/[id number] 17:57:00 Test Item Value Reference Range Interpretation Comments PaO2/FiO2 (test code = [id number]) 463.50 mm/Hg LACTIC [id number] 15:50:00 Test Item Value Reference Range Interpretation Comments LACTIC ACID (test code = LACT) 4.5 MMOL/L 0.7-2.1 H AG HEPATITIS B [id number] 12:09:00 Test Item Value Reference Range Interpretation Comments AG HEPATITIS B SURFACE (test code = NEGATIVE NONREACTIVE HBSAG) [id number] 09:02:00 Test Item Value Reference Range Interpretation Comments TROPONIN-I (test 20.600 NG/ML 0.012-0.033 CALLED TO Jay Reynolds& code = TROPI) READBACK ON AT 0902 BY KARLA MAYA - XR CHEST [id number] 08:19:00 [facility] : 1955 Sex: M Patient Name: JAROD GOTTLIEB Unit No: [id number] EXAMS: CPT CODE: [id number] XR CHEST 1V 60087 HISTORY: Shortness of breath, pacer malfunction Location code: B2 FINDINGS: Frontal view of the chest demonstrates a mildly prominent cardiomediastinal silhouette, with central venous congestion. The trachea is midline. Mild interstitial edema trace effusions. No pneumothorax. The bones are intact. Right IJ dual-lumen catheter is intact. Left pacer device is intact. IMPRESSION: Mild cardiomegaly and central venous congestion without acute decompensation. at 0819 Reported and signed by: Gomez Saravia M.D. CC: Sarina Bingham MD; Desmond Leon MD Technologist: Lizzy Danielson Transcrpt Date/Tm/Trnsp: 04/11/2021 (0819) [email or web address] Orig Print D/T: S: 04/11/2021 (0823) [facility] NAME: JAROD GOTTLIEB [address] PHYS: [id number] [place] [address] : 1955 AGE: 65 SEX: M LOC: [id number] PHONE #: [phone] EXAM DATE: 04/11/2021 STATUS: ADM IN FAX #: [phone] RADIOLOGY NO: PAGE 1 Signed ReportGLYCOSYLATED HEMOGLOBIN PANEL 2021-04-11 07:52:00 Test Item Value Reference Range Interpretation Comments GLYCOSYLATED 7.2 % 4.8-5.9 H Any condition t hat HEMOGLOBIN (HA1C) shortens e rythocyte (test code = survival or dec reasesmean GLYHGB) erythrocyte age (e.g., recovery from a cute blood loss,hemolytic anemia) will falsely lo wer HGBA1c resultsregardle ss of the method used. HG BA1c results from raji laurent HbSS, HbCC, and [...] H (test code = MBG) CBC W/AUTO [id number] 06:02:00 Test Item Value Reference Range Interpretation [...] 0.0-0.1 N code = NRBC#) COMPREHENSIVE METABOLIC [id number] 05:55:00 Test Item Value Reference Range Interpretation [...] newinformation regarding the potential i nterference ofEltrombopag ( a bone marrow stimulan t used to treatthrombocyt onmenia and aplastic anemia ) with specific assays on the Vitros 5600 of which Total Protein is one of thoseassays per formed in our lab.Interfe rence testing perform ed at [facility] determined that Eltrombopag does interfere with Vitros Total Protein asfollowsEltrom bopag Interference fo r Vitros Product Total Protein:======= Eltrombopag Max Observed Av g. BiasConcentrati on Concentration Concentration== ==== 2.5 mg/dl 6.0 g/dl +0.41 +0.34 3.5 mg/dl 6.0 g /dl +0.50 +0.45 5 mg/dl 6 .0 g/dl +0.73 +0.65 2.5 mg/dl 8.0 g/dl +0.44 +0.4 1 3.5 mg/dl 8.0 g/dl +0.55 +0.52 5 mg/dl 8.0 g/dl +0.86 +0.77 ALBUMIN (test 4.9 G/DL 3.5-5.0 N code = ALB) CALCIUM (test 9.9 MG/DL 8.4-10.2 N code = CA) BILIRUBIN TOTAL 0.8 MG/DL 0.2-1.3 N Eltrombopag Interference (test code = for Vitros Prod uct TBil, BILT) BuBc: Assa y Eltrombopag Diandra lyte/ Max Observed Avg. B ias Concentration C oncentration Concentration== ====TBil 7mg/dl TBil/ 1. 2mg/dl +0.23mg.dl +0.2 0mg/dlBuBc 3.5mg/dl Bu/0.8 mg/dl +0.25mg/dl +0.2 4mg/dlBuBc 7 mg/dl Bu/14.2mg /dl +0.38mg/dl +0.2 5mg/dlBuBc 5mg/dl Bc/0mg/d l +0.25mg/dl +0.15mg/dlBuBc 3.5mg/dl Bc/2.8mg/dl +0. 25mg/dl +0.23mg/dl SGOT/AST (test 145 UNITS/L 17-59 H [...] LIPOPROTEIN LDL (test 62 MG/DL 0-99 N OPTIM AL.........<100 code = LDL) mg/dLNEAR OPTIMAL/ABOVE OPTIMAL........ .100-12 9 mg/dL BORDERL INE HIGH.........13 0-159 mg/dL HIGH.........16 0-189 mg/dL VERY HIGH.........>/ = 190 mg/dL [id number] 05:55:00 Test Item Value Reference Range Interpretation Comments PHOSPHOROUS (test code = PHOS) 8.2 MG/DL 2.5-4.5 H [id number] 05:55:00 Test Item Value Reference Range Interpretation Comments MAGNESIUM (test code = MAG) 2.3 MG/DL 1.6-2.3 N ARTERIAL BLOOD [id number] 05:47:00 Test Item Value Reference Range Interpretation [...] AM ABG DELIVERY (test BIPAP code = SHY) ABG VENT RESP RATE 12.0 /MIN (test [...] FIO2 (test code = 50 % COHBGFFIO2) PaO2/[id number] 05:47:00 Test Item Value Reference Range Interpretation Comments PaO2/FiO2 (test code = [id number]) 239.80 mm/Hg COMPREHENSIVE METABOLIC [id number] 05:46:00 Test Item Value Reference Range Interpretation [...] newinformation regarding the potential i nterference ofEltrombopag ( a bone marrow stimulan t used to treatthrombocyt onmenia and aplastic anemia ) with specific assays on the Vitros 5600 of which Total Protein is one of thoseassays per formed in our lab.Interfe rence testing perform ed at [facility] determined that Eltrombopag does interfere with Vitros Total Protein asfollowsEltrom bopag Interference fo r Vitros Product Total Protein:======= Eltrombopag Max Observed Av g. BiasConcentrati on Concentration Concentration== ==== 2.5 mg/dl 6.0 g/dl +0.41 +0.34 3.5 mg/dl 6.0 g /dl +0.50 +0.45 5 mg/dl 6 .0 g/dl +0.73 +0.65 2.5 mg/dl 8.0 g/dl +0.44 +0.4 1 3.5 mg/dl 8.0 g/dl +0.55 +0.52 5 mg/dl 8.0 g/dl +0.86 +0.77 ALBUMIN (test 4.9 G/DL 3.5-5.0 N code = ALB) CALCIUM (test 9.9 MG/DL 8.4-10.2 N code = CA) BILIRUBIN TOTAL 0.8 MG/DL 0.2-1.3 N Eltrombopag Interference (test code = for Vitros Prod uct TBil, BILT) BuBc: Assa y Eltrombopag Diandra lyte/ Max Observed Avg. B ias Concentration C oncentration Concentration== ====TBil 7mg/dl TBil/ 1. 2mg/dl +0.23mg.dl +0.2 0mg/dlBuBc 3.5mg/dl Bu/0.8 mg/dl +0.25mg/dl +0.2 4mg/dlBuBc 7 mg/dl Bu/14.2mg /dl +0.38mg/dl +0.2 5mg/dlBuBc 5mg/dl Bc/0mg/d l +0.25mg/dl +0.15mg/dlBuBc 3.5mg/dl Bc/2.8mg/dl +0. 25mg/dl +0.23mg/dl SGOT/AST (test 145 UNITS/L 17-59 H [...] LDL (test MG/DL 0-99 code = LDL) [id number] 05:46:00 Test Item Value Reference Range Interpretation Comments PHOSPHOROUS (test code = PHOS) 8.2 MG/DL 2.5-4.5 H [id number] 05:46:00 Test Item Value Reference Range Interpretation Comments MAGNESIUM (test code = MAG) 2.3 MG/DL 1.6-2.3 N ARTERIAL BLOOD [id number] 05:46:00 Test Item Value Reference Range Interpretation [...] AM ABG DELIVERY (test BIPAP code = SHY) ABG VENT RESP RATE 12.0 /MIN (test code = RRA) ABG PEEP (test code 10.0 cmH2O = PEEPA) ABG TEMPERATURE 37.0 C See_Comment [Automated message] (test code = TEMPA) The syst em which generated this result transmitted ref erence range: 37. The reference range was not used to int erpret this result as normal/abnormal . ABG SITE (test code LR = SITEA) YOVANY TEST (test Y CHECK code = ALLENS) FIO2 (test code = 50 % COHBGFFIO2) PaO2/[id number] 05:46:00 Test Item Value Reference Range Interpretation Comments PaO2/FiO2 (test code = [id number]) mm/Hg LIPOPROTEIN LDL [id number] 03:49:00 Test Item Value Reference Range Interpretation Comments LIPOPROTEIN LDL DIRECT 59 mg/dL 100-129 L ===== (test code = LDLDIR) ======= ==Refe rence Interval: mg/dL mmol/L--------- ------ ------ ------ --Optimal <100 <2.6Near/above optimal 100-129 2.6-3.3Borderli ne High 130-159 3.4-4.1High 160 -189 4.1-4.9Very Hig h >=190 >=4.9==== ===== This LDL result is a direct measurement.=== ====== [id number] 03:49:00 Test Item Value Reference Range Interpretation Comments TROPONIN-I (test 17.400 NG/ML 0.012-0.033 HH CALLED TO Marcia DON.& code = TROPI) READBACK ON AT 0331 BY Miguel Gan LIPOPROTEIN LDL [id number] 03:31:00 Test Item Value Reference Range Interpretation Comments LIPOPROTEIN LDL DIRECT (test code = mg/dL 100-129 LDLDIR) [id number] 03:31:00 Test Item Value Reference Range Interpretation Comments TROPONIN-I (test 17.400 NG/ML 0.012-0.033 HH CALLED TO [facility] JUAN DON.& code = TROPI) READBACK ON AT 0331 BY Miguel Gan [id number] 00:00:00 Test Item Value Reference Range Interpretation Comments LEVETIRACETAM (test code = 49820) 35.0 mcg/mL [id number] 00:00:00 Test Item Value Reference Range Interpretation Comments LEVETIRACETAM (test code = 93891) 35.0 mcg/mL MICROALBUMIN/CREATININE, RANDOM AND [id number] 00:00:00 Test Item Value Reference Range Interpretation Comments CREATININE, URINE, CONC. (test 93.5 MG/DL code = 2072) ALBUMIN, URINE, RANDOM (test code 13.0 MG/DL = 57352) CALC ALBUMIN/CREAT, RND (test code 139 MG/G = 84694) MICROALBUMIN/CREATININE, RANDOM AND [id number] 00:00:00 Test Item Value Reference Range Interpretation Comments CREATININE, URINE, CONC. (test 93.5 MG/DL code = 2072) ALBUMIN, URINE, RANDOM (test code 13.0 MG/DL = 81955) CALC ALBUMIN/CREAT, RND (test code 139 MG/G = 85480) HEMOGLOBIN [id number] 00:00:00 Test Item Value Reference Range Interpretation Comments HEMOGLOBIN A1c (test code = 36026) 7.3 % HEMOGLOBIN [id number] 00:00:00 Test Item Value Reference Range Interpretation Comments HEMOGLOBIN A1c (test code = 28799) 7.3 % LIPID [id number] 00:00:00 Test Item Value Reference Range Interpretation Comments CHOLESTEROL (test code = 2210) 94 MG/DL TRIGLYCERIDES (test code = 2232) 62 MG/DL HDL CHOLESTEROL (test code = 2220) 37 MG/DL CALC LDL CHOL (test code = 2237) 43 MG/DL RISK RATIO LDL/HDL (test code = 1.16 RATIO 2238) COMPREHENSIVE METABOLIC [id number] 00:00:00 Test Item Value Reference Range Interpretation Comments GLUCOSE (test code = 2217) 142 MG/DL BUN (test code = 2208) 36 MG/DL CREATININE (test code = 2214) 5.53 MG/DL eGFR AMER. (test code 11 ML/MIN/1.73 = 40219) eGFR NON- AMER. (test 10 ML/MIN/1.73 code = 56341) CALC BUN/CREAT (test code = 7 RATIO 5) SODIUM (test code = 2231) 143 MEQ/L POTASSIUM (test code = 2228) 4.2 MEQ/L CHLORIDE (test code = 2215) 103 MEQ/L CARBON DIOXIDE (test code = 17 MEQ/L 2205) CALCIUM (test code = 2209) 8.8 MG/DL PROTEIN, TOTAL (test code = 6.8 G/DL 2228) ALBUMIN (test code = 220) 3.9 G/DL CALC GLOBULIN (test code = 2.9 G/DL 2239) CALC A/G RATIO (test code = 1.3 RATIO 2233) BILIRUBIN, TOTAL (test code = 0.4 MG/DL 2206) ALKALINE PHOSPHATASE (test 150 U/L code = 220) AST (test code = 221) 26 U/L ALT (test code = 2219) 25 U/L URIC [id number] 00:00:00 Test Item Value Reference Range Interpretation Comments URIC ACID (test code = 2233) 4.6 MG/DL VITAMIN B 12 AND FOLIC [id number] 00:00:00 Test Item Value Reference Range Interpretation Comments VITAMIN B-12 (test code = 2840) 1027 PG/ML FOLIC ACID (test code = 2695) 9.6 UG/L HEMOGLOBIN [id number] 00:00:00 Test Item Value Reference Range Interpretation Comments HEMOGLOBIN A1c (test code = 18882) 7.3 % HEMOGLOBIN [id number] 00:00:00 Test Item Value Reference Range Interpretation Comments HEMOGLOBIN A1c (test code = 17763) 7.3 % LIPID [id number] 00:00:00 Test Item Value Reference Range Interpretation Comments CHOLESTEROL (test code = 2210) 94 MG/DL TRIGLYCERIDES (test code = 2232) 62 MG/DL HDL CHOLESTEROL (test code = 2220) 37 MG/DL CALC LDL CHOL (test code = 2237) 43 MG/DL RISK RATIO LDL/HDL (test code = 1.16 RATIO 2237) COMPREHENSIVE METABOLIC [id number] 00:00:00 Test Item Value Reference Range Interpretation Comments GLUCOSE (test code = 2216) 142 MG/DL BUN (test code = 220) 36 MG/DL CREATININE (test code = 2214) 5.53 MG/DL eGFR AMER. (test code 11 ML/MIN/1.73 = 33483) eGFR NON- AMER. (test 10 ML/MIN/1.73 code = 04506) CALC BUN/CREAT (test code = 7 RATIO 2235) SODIUM (test code = 2231) 143 MEQ/L POTASSIUM (test code = 2228) 4.2 MEQ/L CHLORIDE (test code = 2215) 103 MEQ/L CARBON DIOXIDE (test code = 17 MEQ/L 2205) CALCIUM (test code = 2209) 8.8 MG/DL PROTEIN, TOTAL (test code = 6.8 G/DL 2228) ALBUMIN (test code = 2201) 3.9 G/DL CALC GLOBULIN (test code = 2.9 G/DL 2239) CALC A/G RATIO (test code = 1.3 RATIO 2233) BILIRUBIN, TOTAL (test code = 0.4 MG/DL 2206) ALKALINE PHOSPHATASE (test 150 U/L code = 2204) AST (test code = 2218) 26 U/L ALT (test code = 2219) 25 U/L URIC [id number] 00:00:00 Test Item Value Reference Range Interpretation Comments URIC ACID (test code = 2233) 4.6 MG/DL VITAMIN B 12 AND FOLIC [id number] 00:00:00 Test Item Value Reference Range Interpretation Comments VITAMIN B-12 (test code = 2840) 1027 PG/ML FOLIC ACID (test code = 2695) 9.6 UG/L [id number] 00:00:00 Test Item Value Reference Range Interpretation Comments LEVETIRACETAM (test code = 16297) 26.4 mcg/mL [id number] 00:00:00 Test Item Value Reference Range Interpretation Comments LEVETIRACETAM (test code = 32720) 26.4 mcg/mL LIPID [id number] 00:00:00 Test Item Value Reference Range Interpretation Comments CHOLESTEROL (test code = 2210) 113 MG/DL TRIGLYCERIDES (test code = 2232) 247 MG/DL HDL CHOLESTEROL (test code = 2220) 40 MG/DL CALC LDL CHOL (test code = 2237) 42 MG/DL RISK RATIO LDL/HDL (test code = 1.05 RATIO 2238) COMPREHENSIVE METABOLIC [id number] 00:00:00 Test Item Value Reference Range Interpretation Comments GLUCOSE (test code = 2217) 220 MG/DL BUN (test code = 2208) 48 MG/DL CREATININE (test code = 2214) 4.01 MG/DL eGFR AMER. (test code 17 ML/MIN/1.73 = 63073) eGFR NON- AMER. (test 15 ML/MIN/1.73 code = 95015) CALC BUN/CREAT (test code = 12 RATIO 2235) SODIUM (test code = 2231) 134 MEQ/L POTASSIUM (test code = 2228) 4.6 MEQ/L CHLORIDE (test code = 2215) 97 MEQ/L CARBON DIOXIDE (test code = 21 MEQ/L 2205) CALCIUM (test code = 2209) 9.5 MG/DL PROTEIN, TOTAL (test code = 7.6 G/DL 2228) ALBUMIN (test code = 2201) 4.5 G/DL CALC GLOBULIN (test code = 3.1 G/DL 224) CALC A/G RATIO (test code = 1.5 RATIO 2234) BILIRUBIN, TOTAL (test code = 0.4 MG/DL 2206) ALKALINE PHOSPHATASE (test 137 U/L code = 2204) AST (test code = 2218) 33 U/L ALT (test code = 2219) 37 U/L LIPID [id number] 00:00:00 Test Item Value Reference Range Interpretation Comments CHOLESTEROL (test code = 2210) 113 MG/DL TRIGLYCERIDES (test code = 2232) 247 MG/DL HDL CHOLESTEROL (test code = 2220) 40 MG/DL CALC LDL CHOL (test code = 2237) 42 MG/DL RISK RATIO LDL/HDL (test code = 1.05 RATIO 2238) COMPREHENSIVE METABOLIC [id number] 00:00:00 Test Item Value Reference Range Interpretation Comments GLUCOSE (test code = 2217) 220 MG/DL BUN (test code = 2208) 48 MG/DL CREATININE (test code = 2214) 4.01 MG/DL eGFR AMER. (test code 17 ML/MIN/1.73 = 81917) eGFR NON- AMER. (test 15 ML/MIN/1.73 code = 58920) CALC BUN/CREAT (test code = 12 RATIO 2235) SODIUM (test code = 2231) 134 MEQ/L POTASSIUM (test code = 2228) 4.6 MEQ/L CHLORIDE (test code = 2215) 97 MEQ/L CARBON DIOXIDE (test code = 21 MEQ/L 2205) CALCIUM (test code = 2209) 9.5 MG/DL PROTEIN, TOTAL (test code = 7.6 G/DL 2228) ALBUMIN (test code = 2201) 4.5 G/DL CALC GLOBULIN (test code = 3.1 G/DL 2239) CALC A/G RATIO (test code = 1.5 RATIO 2233) BILIRUBIN, TOTAL (test code = 0.4 MG/DL 2206) ALKALINE PHOSPHATASE (test 137 U/L code = 2204) AST (test code = 2218) 33 U/L ALT (test code = 2219) 37 U/L HEMOGLOBIN [id number] 00:00:00 Test Item Value Reference Range Interpretation Comments HEMOGLOBIN A1c (test code = 79961) 10.0 % HEMOGLOBIN [id number] 00:00:00 Test Item Value Reference Range Interpretation Comments HEMOGLOBIN A1c (test code = 89736) 10.0 % HEMOGLOBIN [id number] 00:00:00 Test Item Value Reference Range Interpretation Comments HEMOGLOBIN A1c (test code = 24417) 10.0 % HEMOGLOBIN [id number] 00:00:00 Test Item Value Reference Range Interpretation Comments HEMOGLOBIN A1c (test code = 01340) 10.0 % HEMOGLOBIN [id number] 00:00:00 Test Item Value Reference Range Interpretation Comments HEMOGLOBIN A1c (test code = 15796) 9.9 % HEMOGLOBIN [id number] 00:00:00 Test Item Value Reference Range Interpretation Comments HEMOGLOBIN A1c (test code = 21427) 9.9 % LIPID [id number] 00:00:00 Test Item Value Reference Range Interpretation Comments CHOLESTEROL (test code = 2210) 107 MG/DL TRIGLYCERIDES (test code = 2232) 139 MG/DL HDL CHOLESTEROL (test code = 2220) 35 MG/DL CALC LDL CHOL (test code = 2237) 50 MG/DL RISK RATIO LDL/HDL (test code = 1.43 RATIO 8) COMPREHENSIVE METABOLIC [id number] 00:00:00 Test Item Value Reference Range Interpretation Comments GLUCOSE (test code = 2216) 187 MG/DL BUN (test code = 2208) 53 MG/DL CREATININE (test code = 2214) 3.45 MG/DL eGFR AMER. (test code 20 ML/MIN/1.73 = 82116) eGFR NON- AMER. (test 17 ML/MIN/1.73 code = 35158) CALC BUN/CREAT (test code = 15 RATIO 2235) SODIUM (test code = 2231) 138 MEQ/L POTASSIUM (test code = 2228) 4.2 MEQ/L CHLORIDE (test code = 2215) 102 MEQ/L CARBON DIOXIDE (test code = 23 MEQ/L 2205) CALCIUM (test code = 2209) 8.9 MG/DL PROTEIN, TOTAL (test code = 7.0 G/DL 2228) ALBUMIN (test code = 2201) 4.1 G/DL CALC GLOBULIN (test code = 2.9 G/DL 2239) CALC A/G RATIO (test code = 1.4 RATIO 2234) BILIRUBIN, TOTAL (test code = 0.4 MG/DL 2206) ALKALINE PHOSPHATASE (test 171 U/L code = 2204) AST (test code = 2218) 30 U/L ALT (test code = 2219) 46 U/L [id number] 00:00:00 Test Item Value Reference Range Interpretation Comments TSH, THIRD GENERATION (test code 3.770 UIU/ML = 2821) [id number] 00:00:00 Test Item Value Reference Range Interpretation Comments TSH, THIRD GENERATION (test code 3.770 UIU/ML = 2821) HEMOGLOBIN [id number] 00:00:00 Test Item Value Reference Range Interpretation Comments HEMOGLOBIN A1c (test code = 40460) 9.9 % HEMOGLOBIN [id number] 00:00:00 Test Item Value Reference Range Interpretation Comments HEMOGLOBIN A1c (test code = 42152) 9.9 % LIPID [id number] 00:00:00 Test Item Value Reference Range Interpretation Comments CHOLESTEROL (test code = 2210) 107 MG/DL TRIGLYCERIDES (test code = 2232) 139 MG/DL HDL CHOLESTEROL (test code = 2220) 35 MG/DL CALC LDL CHOL (test code = 2237) 50 MG/DL RISK RATIO LDL/HDL (test code = 1.43 RATIO 2238) COMPREHENSIVE METABOLIC [id number] 00:00:00 Test Item Value Reference Range Interpretation Comments GLUCOSE (test code = 2217) 187 MG/DL BUN (test code = 2208) 53 MG/DL CREATININE (test code = 2214) 3.45 MG/DL eGFR AMER. (test code 20 ML/MIN/1.73 = 94885) eGFR NON- AMER. (test 17 ML/MIN/1.73 code = 19723) CALC BUN/CREAT (test code = 15 RATIO 2235) SODIUM (test code = 2231) 138 MEQ/L POTASSIUM (test code = 2228) 4.2 MEQ/L CHLORIDE (test code = 2215) 102 MEQ/L CARBON DIOXIDE (test code = 23 MEQ/L 2205) CALCIUM (test code = 2209) 8.9 MG/DL PROTEIN, TOTAL (test code = 7.0 G/DL 2228) ALBUMIN (test code = 2201) 4.1 G/DL CALC GLOBULIN (test code = 2.9 G/DL 2239) CALC A/G RATIO (test code = 1.4 RATIO 2233) BILIRUBIN, TOTAL (test code = 0.4 MG/DL 2206) ALKALINE PHOSPHATASE (test 171 U/L code = 2204) AST (test code = 2218) 30 U/L ALT (test code = 2219) 46 U/L [id number] 00:00:00 Test Item Value Reference Range Interpretation Comments TSH, THIRD GENERATION (test code 3.770 UIU/ML = 2821) [id number] 00:00:00 Test Item Value Reference Range Interpretation Comments TSH, THIRD GENERATION (test code 3.770 UIU/ML = 2821) GLUCOSE BEDSIDE [id number] 15:07:00 Test Item Value Reference Range Interpretation Comments GLUCOSE BEDSIDE TESTING 140 MG/DL 60-99 H Doct or Notified~ (test code = GLUBED) GLUCOSE BEDSIDE [id number] 13:43:00 Test Item Value Reference Range Interpretation Comments GLUCOSE BEDSIDE TESTING (test code 269 MG/DL 60-99 H = GLUBED) GLUCOSE BEDSIDE [id number] 13:21:00 Test Item Value Reference Range Interpretation Comments GLUCOSE BEDSIDE TESTING (test code 291 MG/DL 60-99 H = GLUBED) GLUCOSE BEDSIDE [id number] 12:15:00 Test Item Value Reference Range Interpretation Comments GLUCOSE BEDSIDE TESTING (test code 340 MG/DL 60-99 HH = GLUBED) GLUCOSE BEDSIDE [id number] 11:23:00 Test Item Value Reference Range Interpretation Comments GLUCOSE BEDSIDE TESTING (test code 394 MG/DL 60-99 HH = GLUBED) GLUCOSE BEDSIDE [id number] 10:43:00 Test Item Value Reference Range Interpretation Comments GLUCOSE BEDSIDE TESTING 407 MG/DL 60-99 HH Doct or Notified~ (test code = GLUBED) BASIC METABOLIC [id number] 10:36:00 Test Item Value Reference Range Interpretation [...] code = 9.2 MG/DL 8.4-10.2 N CA) [id number] 10:36:00 Test Item Value Reference Range Interpretation Comments MAGNESIUM (test code = MAG) 2.3 MG/DL 1.6-2.3 N BASIC METABOLIC [id number] 10:30:00 Test Item Value Reference Range Interpretation [...] CALCIUM (test code = CA) MG/DL 8.7-9.7 [id number] 10:30:00 Test Item Value Reference Range Interpretation Comments MAGNESIUM (test code = MAG) MG/DL 1.6-2.3 BASIC METABOLIC [id number] 10:29:00 Test Item Value Reference Range Interpretation [...] CALCIUM (test code = CA) MG/DL 8.7-9.7 [id number] 10:29:00 Test Item Value Reference Range Interpretation Comments MAGNESIUM (test code = MAG) MG/DL 1.6-2.3 PROTHROMBIN [id number] 10:25:00 Test Item Value Reference Range Interpretation Comments PROTHROMBIN TIME 10.8 SECONDS 9.4-12.5 N PATIENT (test code = PTP) INTERNATIONAL NORMAL 1.0 The INR is to be RATIO (test code = used only for INR) monitoring oral anticoagulantth erap y. INDICATION I NR VALUE ---- ---- ---- -------1. Prophylaxis, de ep venous thrombos is, including high risk surgery. 2.0 - 3.0 2. Prophylaxis, deep venous thrombosis, hip surgery, treatm ent for deep venous thrombosis or pulmonary prevention of systemic emboli sm in patients wit h valvular heart disease, atrial fibrillation, tissue heart va lve, or acute myocar dial infarction. 2.0 - 3.0 3. 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 3.0 - 4.5 PTT [id number] 10:25:00 Test Item Value Reference Range Interpretation Comments PTT ACTIVATED (test code = APTT) 32.6 SECONDS 25.1-36.5 N CBC W/AUTO [id number] 10:13:00 Test Item Value Reference Range Interpretation [...] 0.0-0.1 N NRBC#) COVID 19 Asymptomatic IH [id number] 09:19:00 Test Item Value Reference Range Interpretation Comments COVID 19 NEGATIVE Negative "Negative resul ts from Asymptomatic IH AG patients with symptom (test code = onset beyondfiv e days, COVNONPUIAG) should be treat ed as presumptive, andconfirmation with a molecular assay [...] amount of virus (antigen) in the sample." HEMOGLOBIN [id number] 00:00:00 Test Item Value Reference Range Interpretation Comments HEMOGLOBIN A1c (test code = 8.6 [facility] CBC (INCLUDES DIFF/PLT)2020-08-24 00:00:00 Test Item Value Reference Range Interpretation Comments WHITE BLOOD CELL COUNT (test 8.9 Thousand/uL code = 6690-2) RED BLOOD CELL COUNT (test 4.44 Million/uL code = 789-8) HEMOGLOBIN (test code = 13.6 g/dL 718-7) HEMATOCRIT (test code = 40.4 % 4544-3) MCV (test code = 787-2) 91.0 fL MCH (test code = 785-6) 30.6 pg MCHC (test code = 786-4) 33.7 g/dL RDW (test code = 788-0) 13.5 % PLATELET COUNT (test code = 143 Thousand/uL 777-3) MPV (test code = 776-5) 9.5 fL ABSOLUTE NEUTROPHILS (test 4877 cells/uL code = 751-8) ABSOLUTE BAND NEUTROPHILS DNR cells/uL (test code = 25192-8) ABSOLUTE METAMYELOCYTES (test DNR cells/uL code = 70258-2) ABSOLUTE MYELOCYTES (test DNR cells/uL code = 07985-7) ABSOLUTE PROMYELOCYTES (test DNR cells/uL code = 72954-6) ABSOLUTE LYMPHOCYTES (test 2795 cells/uL code = 731-0) ABSOLUTE MONOCYTES (test code 525 cells/uL = 742-7) ABSOLUTE EOSINOPHILS (test 632 cells/uL code = 711-2) ABSOLUTE BASOPHILS (test code 71 cells/uL = 704-7) ABSOLUTE BLASTS (test code = DNR cells/uL 70728-7) ABSOLUTE NUCLEATED RBC (test DNR cells/uL code = 47525-6) NEUTROPHILS (test code = 54.8 % 770-8) BAND NEUTROPHILS (test code = DNR % 764-1) METAMYELOCYTES (test code = DNR % 740-1) MYELOCYTES (test code = DNR % 749-2) PROMYELOCYTES (test code = DNR % 783-1) LYMPHOCYTES (test code = 31.4 % 736-9) REACTIVE LYMPHOCYTES (test DNR % code = 82800-8) MONOCYTES (test code = 5.9 % 5905-5) EOSINOPHILS (test code = 7.1 % 713-8) BASOPHILS (test code = 706-2) 0.8 % BLASTS (test code = 709-6) DNR % NUCLEATED RBC (test code = DNR /100WBC 57060-1) COMMENT(S) (test code = DNR 8251-1) COMPREHENSIVE METABOLIC [id number] 00:00:00 Test Item Value Reference Range Interpretation Comments GLUCOSE (test code = 2345-7) 238 mg/dL UREA NITROGEN (BUN) (test 58 mg/dL code = 3094-0) CREATININE (test code = 3.06 mg/dL 2160-0) eGFR NON-AFR. BOTSWANAN (test 20 mL/min/1.73m2 code = 00655-6) eGFR (test 23 mL/min/1.73m2 code = 55784-2) BUN/CREATININE RATIO (test 19 (calc) code = 3097-3) SODIUM (test code = 2951-2) 139 mmol/L POTASSIUM (test code = 4.8 mmol/L 2823-3) CHLORIDE (test code = 109 mmol/L 2074-0) CARBON DIOXIDE (test code = 23 mmol/L 2028-04) CALCIUM (test code = 9.2 mg/dL 60729-3) PROTEIN, TOTAL (test code = 6.6 g/dL 2885-2) ALBUMIN (test code = 1751-7) 3.8 g/dL GLOBULIN (test code = 2.8 g/dL(calc) 94365-7) ALBUMIN/GLOBULIN RATIO (test 1.4 (calc) code = 1759-0) BILIRUBIN, TOTAL (test code 0.6 mg/dL = 1974-) ALKALINE PHOSPHATASE (test 123 U/L code = 6768-6) AST (test code = 1920-8) 19 U/L ALT (test code = 1742-6) 37 U/L LIPID [id number] 00:00:00 Test Item Value Reference Range Interpretation Comments CHOLESTEROL, TOTAL (test code 123 mg/dL = 3-3) HDL CHOLESTEROL (test code = 34 mg/dL 9) TRIGLYCERIDES (test code = 122 mg/dL 2570-8) LDL-CHOLESTEROL (test code = 69 mg/dL(calc) 27210-5) CHOL/HDLC RATIO (test code = 3.6 (calc) 9830-1) NON HDL CHOLESTEROL (test code 89 mg/dL(calc) = 03368-4) [id number] 00:00:00 Test Item Value Reference Range Interpretation Comments LEVETIRACETAM (test code = 28.3 mcg/mL 68301-4) HEMOGLOBIN [id number] 00:00:00 Test Item Value Reference Range Interpretation Comments HEMOGLOBIN A1c (test code = 8.6 [facility] CBC (INCLUDES DIFF/PLT)2020-08-24 00:00:00 Test Item Value Reference Range Interpretation Comments WHITE BLOOD CELL COUNT (test 8.9 Thousand/uL code = 6690-2) RED BLOOD CELL COUNT (test 4.44 Million/uL code = 789-8) HEMOGLOBIN (test code = 13.6 g/dL 718-7) HEMATOCRIT (test code = 40.4 % 4544-3) MCV (test code = 787-2) 91.0 fL MCH (test code = 785-6) 30.6 pg MCHC (test code = 786-4) 33.7 g/dL RDW (test code = 788-0) 13.5 % PLATELET COUNT (test code = 143 Thousand/uL 777-3) MPV (test code = 776-5) 9.5 fL ABSOLUTE NEUTROPHILS (test 4877 cells/uL code = 751-8) ABSOLUTE BAND NEUTROPHILS DNR cells/uL (test code = 28343-9) ABSOLUTE METAMYELOCYTES (test DNR cells/uL code = 63204-4) ABSOLUTE MYELOCYTES (test DNR cells/uL code = 44621-8) ABSOLUTE PROMYELOCYTES (test DNR cells/uL code = 04418-7) ABSOLUTE LYMPHOCYTES (test 2795 cells/uL code = 731-0) ABSOLUTE MONOCYTES (test code 525 cells/uL = 742-7) ABSOLUTE EOSINOPHILS (test 632 cells/uL code = 711-2) ABSOLUTE BASOPHILS (test code 71 cells/uL = 704-7) ABSOLUTE BLASTS (test code = DNR cells/uL 74378-3) ABSOLUTE NUCLEATED RBC (test DNR cells/uL code = 14821-2) NEUTROPHILS (test code = 54.8 % 770-8) BAND NEUTROPHILS (test code = DNR % 764-1) METAMYELOCYTES (test code = DNR % 740-1) MYELOCYTES (test code = DNR % 749-2) PROMYELOCYTES (test code = DNR % 783-1) LYMPHOCYTES (test code = 31.4 % 736-9) REACTIVE LYMPHOCYTES (test DNR % code = 74276-3) MONOCYTES (test code = 5.9 % 5905-5) EOSINOPHILS (test code = 7.1 % 713-8) BASOPHILS (test code = 706-2) 0.8 % BLASTS (test code = 709-6) DNR % NUCLEATED RBC (test code = DNR /100WBC 66677-8) COMMENT(S) (test code = DNR 8251-1) COMPREHENSIVE METABOLIC [id number] 00:00:00 Test Item Value Reference Range Interpretation Comments GLUCOSE (test code = 2345-7) 238 mg/dL UREA NITROGEN (BUN) (test 58 mg/dL code = 3094-0) CREATININE (test code = 3.06 mg/dL 2160-0) eGFR NON-AFR. BOTSWANAN (test 20 mL/min/1.73m2 code = 37044-3) eGFR (test 23 mL/min/1.73m2 code = 52865-3) BUN/CREATININE RATIO (test 19 (calc) code = 3097-3) SODIUM (test code = 2951-2) 139 mmol/L POTASSIUM (test code = 4.8 mmol/L 2823-3) CHLORIDE (test code = 109 mmol/L 2074-0) CARBON DIOXIDE (test code = 23 mmol/L 2027-9) CALCIUM (test code = 9.2 mg/dL 41872-6) PROTEIN, TOTAL (test code = 6.6 g/dL 2885-2) ALBUMIN (test code = 1751-7) 3.8 g/dL GLOBULIN (test code = 2.8 g/dL(calc) 24367-1) ALBUMIN/GLOBULIN RATIO (test 1.4 (calc) code = 1759-0) BILIRUBIN, TOTAL (test code 0.6 mg/dL = 1974-2) ALKALINE PHOSPHATASE (test 123 U/L code = 6768-6) AST (test code = 1920-8) 19 U/L ALT (test code = 1742-6) 37 U/L LIPID [id number] 00:00:00 Test Item Value Reference Range Interpretation Comments CHOLESTEROL, TOTAL (test code 123 mg/dL = 3-3) HDL CHOLESTEROL (test code = 34 mg/dL 2084-9) TRIGLYCERIDES (test code = 122 mg/dL 2570-8) LDL-CHOLESTEROL (test code = 69 mg/dL(calc) 66227-6) CHOL/HDLC RATIO (test code = 3.6 (calc) 9830-1) NON HDL CHOLESTEROL (test code 89 mg/dL(calc) = 13771-7) [id number] 00:00:00 Test Item Value Reference Range Interpretation Comments LEVETIRACETAM (test code = 28.3 mcg/mL 65336-6) CBC W/AUTO [id number] 00:00:00 Test Item Value Reference Range Interpretation Comments WBC (test code = 1001) 4.3 K/UL RBC (test code = 1002) 3.96 M/UL HEMOGLOBIN (test code = 1003) 11.8 G/DL HEMATOCRIT (test code = 1004) 35.6 % MCV (test code = 1005) 89.9 fL MCH (test code = 1006) 29.8 PG MCHC (test code = 1007) 33.1 G/DL RDW (test code = 1038) 15.1 % NEUTROPHILS (test code = 1008) 40.2 % LYMPHOCYTES (test code = 1010) 43.3 % MONOCYTES (test code = 1011) 10.2 % EOSINOPHILS (test code = 1012) 5.1 % BASOPHILS (test code = 1013) 1.2 % PLATELET COUNT (test code = 1015) 138 K/UL CBC W/AUTO [id number] 00:00:00 Test Item Value Reference Range Interpretation Comments WBC (test code = 1001) 4.3 K/UL RBC (test code = 1002) 3.96 M/UL HEMOGLOBIN (test code = 1003) 11.8 G/DL HEMATOCRIT (test code = 1004) 35.6 % MCV (test code = 1005) 89.9 fL MCH (test code = 1006) 29.8 PG MCHC (test code = 1007) 33.1 G/DL RDW (test code = 1038) 15.1 % NEUTROPHILS (test code = 1008) 40.2 % LYMPHOCYTES (test code = 1010) 43.3 % MONOCYTES (test code = 1011) 10.2 % EOSINOPHILS (test code = 1012) 5.1 % BASOPHILS (test code = 1013) 1.2 % PLATELET COUNT (test code = 1015) 138 K/UL COMPREHENSIVE METABOLIC [id number] 00:00:00 Test Item Value Reference Range Interpretation Comments GLUCOSE (test code = 2217) 236 MG/DL BUN (test code = 2208) 42 MG/DL CREATININE (test code = 2214) 2.24 MG/DL eGFR AMER. (test code 34 ML/MIN/1.73 = 61200) eGFR NON- AMER. (test 30 ML/MIN/1.73 code = 56840) CALC BUN/CREAT (test code = 19 RATIO 2235) SODIUM (test code = 2231) 140 MEQ/L POTASSIUM (test code = 2228) 4.6 MEQ/L CHLORIDE (test code = 2215) 102 MEQ/L CARBON DIOXIDE (test code = 22 MEQ/L 2205) CALCIUM (test code = 2209) 9.3 MG/DL PROTEIN, TOTAL (test code = 6.9 G/DL 2228) ALBUMIN (test code = 2201) 3.9 G/DL CALC GLOBULIN (test code = 3.0 G/DL 2239) CALC A/G RATIO (test code = 1.3 RATIO 2233) BILIRUBIN, TOTAL (test code = 0.5 MG/DL 2206) ALKALINE PHOSPHATASE (test 119 U/L code = 220) AST (test code = 2218) 17 U/L ALT (test code = 2219) 24 U/L CBC W/AUTO [id number] 00:00:00 Test Item Value Reference Range Interpretation Comments WBC (test code = 1001) 4.3 K/UL RBC (test code = 1002) 3.96 M/UL HEMOGLOBIN (test code = 1003) 11.8 G/DL HEMATOCRIT (test code = 1004) 35.6 % MCV (test code = 1005) 89.9 fL MCH (test code = 1006) 29.8 PG MCHC (test code = 1007) 33.1 G/DL RDW (test code = 1038) 15.1 % NEUTROPHILS (test code = 1008) 40.2 % LYMPHOCYTES (test code = 1010) 43.3 % MONOCYTES (test code = 1011) 10.2 % EOSINOPHILS (test code = 1012) 5.1 % BASOPHILS (test code = 1013) 1.2 % PLATELET COUNT (test code = 1015) 138 K/UL CBC W/AUTO [id number] 00:00:00 Test Item Value Reference Range Interpretation Comments WBC (test code = 1001) 4.3 K/UL RBC (test code = 1002) 3.96 M/UL HEMOGLOBIN (test code = 1003) 11.8 G/DL HEMATOCRIT (test code = 1004) 35.6 % MCV (test code = 1005) 89.9 fL MCH (test code = 1006) 29.8 PG MCHC (test code = 1007) 33.1 G/DL RDW (test code = 1038) 15.1 % NEUTROPHILS (test code = 1008) 40.2 % LYMPHOCYTES (test code = 1010) 43.3 % MONOCYTES (test code = 1011) 10.2 % EOSINOPHILS (test code = 1012) 5.1 % BASOPHILS (test code = 1013) 1.2 % PLATELET COUNT (test code = 1015) 138 K/UL COMPREHENSIVE METABOLIC [id number] 00:00:00 Test Item Value Reference Range Interpretation Comments GLUCOSE (test code = 2217) 236 MG/DL BUN (test code = 2208) 42 MG/DL CREATININE (test code = 2214) 2.24 MG/DL eGFR AMER. (test code 34 ML/MIN/1.73 = 57306) eGFR NON- AMER. (test 30 ML/MIN/1.73 code = 41211) CALC BUN/CREAT (test code = 19 RATIO 2235) SODIUM (test code = 2231) 140 MEQ/L POTASSIUM (test code = 2228) 4.6 MEQ/L CHLORIDE (test code = 2215) 102 MEQ/L CARBON DIOXIDE (test code = 22 MEQ/L 2205) CALCIUM (test code = 2209) 9.3 MG/DL PROTEIN, TOTAL (test code = 6.9 G/DL 2228) ALBUMIN (test code = 2201) 3.9 G/DL CALC GLOBULIN (test code = 3.0 G/DL 2240) CALC A/G RATIO (test code = 1.3 RATIO 2234) BILIRUBIN, TOTAL (test code = 0.5 MG/DL 2206) ALKALINE PHOSPHATASE (test 119 U/L code = 2204) AST (test code = 2218) 17 U/L ALT (test code = 2219) 24 U/L COMPREHENSIVE METABOLIC [id number] 00:00:00 Test Item Value Reference Range Interpretation Comments GLUCOSE (test code = 2217) 79 MG/DL BUN (test code = 2208) 82 MG/DL CREATININE (test code = 2214) 4.16 MG/DL eGFR AMER. (test code 16 ML/MIN/1.73 = 70567) eGFR NON- AMER. (test 14 ML/MIN/1.73 code = 08973) CALC BUN/CREAT (test code = 20 RATIO 2235) SODIUM (test code = 2231) 143 MEQ/L POTASSIUM (test code = 2228) 4.8 MEQ/L CHLORIDE (test code = 2215) 111 MEQ/L CARBON DIOXIDE (test code = 19 MEQ/L 2205) CALCIUM (test code = 2209) 8.4 MG/DL PROTEIN, TOTAL (test code = 6.4 G/DL 2228) ALBUMIN (test code = 2201) 3.4 G/DL CALC GLOBULIN (test code = 3.0 G/DL 0) CALC A/G RATIO (test code = 1.1 RATIO 2233) BILIRUBIN, TOTAL (test code = 0.5 MG/DL 2206) ALKALINE PHOSPHATASE (test 126 U/L code = 2204) AST (test code = 2218) 19 U/L ALT (test code = 2219) 46 U/L CBC W/AUTO [id number] 00:00:00 Test Item Value Reference Range Interpretation Comments WBC (test code = 1001) 9.1 K/UL RBC (test code = 1002) 2.86 M/UL HEMOGLOBIN (test code = 1003) 8.0 G/DL HEMATOCRIT (test code = 1004) 25.8 % MCV (test code = 1005) 90.2 fL MCH (test code = 1006) 28.0 PG MCHC (test code = 1007) 31.0 G/DL RDW (test code = 1038) 16.9 % NEUTROPHILS (test code = 1008) 72.5 % LYMPHOCYTES (test code = 1010) 18.0 % MONOCYTES (test code = 1011) 4.2 % EOSINOPHILS (test code = 1012) 4.6 % BASOPHILS (test code = 1013) 0.7 % NUCLEATED RBC'S (test code = 5 /100WBC'S 1065) PLATELET COUNT (test code = 1015) 275 K/UL COMMENTS (test code = 1016) (NOTE) CBC W/AUTO [id number] 00:00:00 Test Item Value Reference Range Interpretation Comments WBC (test code = 1001) 9.1 K/UL RBC (test code = 1002) 2.86 M/UL HEMOGLOBIN (test code = 1003) 8.0 G/DL HEMATOCRIT (test code = 1004) 25.8 % MCV (test code = 1005) 90.2 fL MCH (test code = 1006) 28.0 PG MCHC (test code = 1007) 31.0 G/DL RDW (test code = 1038) 16.9 % NEUTROPHILS (test code = 1008) 72.5 % LYMPHOCYTES (test code = 1010) 18.0 % MONOCYTES (test code = 1011) 4.2 % EOSINOPHILS (test code = 1012) 4.6 % BASOPHILS (test code = 1013) 0.7 % NUCLEATED RBC'S (test code = 5 /100WBC'S 1065) PLATELET COUNT (test code = 1015) 275 K/UL COMMENTS (test code = 1016) (NOTE) COMPREHENSIVE METABOLIC [id number] 00:00:00 Test Item Value Reference Range Interpretation Comments GLUCOSE (test code = 2217) 79 MG/DL BUN (test code = 2208) 82 MG/DL CREATININE (test code = 2214) 4.16 MG/DL eGFR AMER. (test code 16 ML/MIN/1.73 = 95802) eGFR NON- AMER. (test 14 ML/MIN/1.73 code = 10648) CALC BUN/CREAT (test code = 20 RATIO 2235) SODIUM (test code = 2231) 143 MEQ/L POTASSIUM (test code = 2228) 4.8 MEQ/L CHLORIDE (test code = 2215) 111 MEQ/L CARBON DIOXIDE (test code = 19 MEQ/L 2206) CALCIUM (test code = 2209) 8.4 MG/DL PROTEIN, TOTAL (test code = 6.4 G/DL 222) ALBUMIN (test code = 2201) 3.4 G/DL CALC GLOBULIN (test code = 3.0 G/DL 2240) CALC A/G RATIO (test code = 1.1 RATIO 2234) BILIRUBIN, TOTAL (test code = 0.5 MG/DL 2207) ALKALINE PHOSPHATASE (test 126 U/L code = 2204) AST (test code = 2218) 19 U/L ALT (test code = 2219) 46 U/L CBC W/AUTO [id number] 00:00:00 Test Item Value Reference Range Interpretation Comments WBC (test code = 1001) 9.1 K/UL RBC (test code = 1002) 2.86 M/UL HEMOGLOBIN (test code = 1003) 8.0 G/DL HEMATOCRIT (test code = 1004) 25.8 % MCV (test code = 1005) 90.2 fL MCH (test code = 1006) 28.0 PG MCHC (test code = 1007) 31.0 G/DL RDW (test code = 1038) 16.9 % NEUTROPHILS (test code = 1008) 72.5 % LYMPHOCYTES (test code = 1010) 18.0 % MONOCYTES (test code = 1011) 4.2 % EOSINOPHILS (test code = 1012) 4.6 % BASOPHILS (test code = 1013) 0.7 % NUCLEATED RBC'S (test code = 5 /100WBC'S 1065) PLATELET COUNT (test code = 1015) 275 K/UL COMMENTS (test code = 1016) (NOTE) CBC W/AUTO [id number] 00:00:00 Test Item Value Reference Range Interpretation Comments WBC (test code = 1001) 9.1 K/UL RBC (test code = 1002) 2.86 M/UL HEMOGLOBIN (test code = 1003) 8.0 G/DL HEMATOCRIT (test code = 1004) 25.8 % MCV (test code = 1005) 90.2 fL MCH (test code = 1006) 28.0 PG MCHC (test code = 1007) 31.0 G/DL RDW (test code = 1038) 16.9 % NEUTROPHILS (test code = 1008) 72.5 % LYMPHOCYTES (test code = 1010) 18.0 % MONOCYTES (test code = 1011) 4.2 % EOSINOPHILS (test code = 1012) 4.6 % BASOPHILS (test code = 1013) 0.7 % NUCLEATED RBC'S (test code = 5 /100WBC'S 1065) PLATELET COUNT (test code = 1015) 275 K/UL COMMENTS (test code = 1016) (NOTE) HEMOGLOBIN [id number] 00:00:00 Test Item Value Reference Range Interpretation Comments HEMOGLOBIN A1c (test code = 6.9 %oftotalHgb 4548-4) CBC (H/H, RBC, INDICES, WBC, PLT)2020-02-07 00:00:00 Test Item Value Reference Range Interpretation Comments WHITE BLOOD CELL COUNT (test 12.9 Thousand/uL code = 6690-2) RED BLOOD CELL COUNT (test 3.04 Million/uL code = 789-8) HEMOGLOBIN (test code = 8.3 g/dL 718-7) HEMATOCRIT (test code = 27.6 % 4544-3) MCV (test code = 787-2) 90.8 fL MCH (test code = 785-6) 27.3 pg MCHC (test code = 786-4) 30.1 g/dL RDW (test code = 788-0) 14.6 % PLATELET COUNT (test code = 288 Thousand/uL 777-3) MPV (test code = 776-5) 8.7 fL CBC (H/H, RBC, INDICES, WBC, PLT)2020-02-07 00:00:00 Test Item Value Reference Range Interpretation Comments WHITE BLOOD CELL COUNT (test 12.9 Thousand/uL code = 6690-2) RED BLOOD CELL COUNT (test 3.04 Million/uL code = 789-8) HEMOGLOBIN (test code = 8.3 g/dL 718-7) HEMATOCRIT (test code = 27.6 % 4544-3) MCV (test code = 787-2) 90.8 fL MCH (test code = 785-6) 27.3 pg MCHC (test code = 786-4) 30.1 g/dL RDW (test code = 788-0) 14.6 % PLATELET COUNT (test code = 288 Thousand/uL 777-3) MPV (test code = 776-5) 8.7 fL COMPREHENSIVE METABOLIC [id number] 00:00:00 Test Item Value Reference Range Interpretation Comments GLUCOSE (test code = 2345-7) 118 mg/dL UREA NITROGEN (BUN) (test 84 mg/dL code = 3094-0) CREATININE (test code = 4.60 mg/dL 2160-0) eGFR NON-AFR. BOTSWANAN (test 12 mL/min/1.73m2 code = 24639-5) eGFR (test 14 mL/min/1.73m2 code = 49816-3) BUN/CREATININE RATIO (test 18 (calc) code = 3097-3) SODIUM (test code = 2951-2) 140 mmol/L POTASSIUM (test code = 4.7 mmol/L 2823-3) CHLORIDE (test code = 110 mmol/L 5-0) CARBON DIOXIDE (test code = 20 mmol/L 2027-9) CALCIUM (test code = 7.9 mg/dL 71231-4) PROTEIN, TOTAL (test code = 5.8 g/dL 2885-2) ALBUMIN (test code = 1751-7) 2.8 g/dL GLOBULIN (test code = 3.0 g/dL(calc) 25057-9) ALBUMIN/GLOBULIN RATIO (test 0.9 (calc) code = 1759-0) BILIRUBIN, TOTAL (test code 0.4 mg/dL = 1975-2) ALKALINE PHOSPHATASE (test 100 U/L code = 6768-6) AST (test code = 1920-8) 34 U/L ALT (test code = 1742-6) 60 U/L LIPID PANEL (REFL)2020-02-07 00:00:00 Test Item Value Reference Range Interpretation Comments CHOLESTEROL, TOTAL (test code 98 mg/dL = 3-3) HDL CHOLESTEROL (test code = 27 mg/dL 5-9) TRIGLYCERIDES (test code = 137 mg/dL 1-8) LDL-CHOLESTEROL (test code = 49 mg/dL(calc) 67722-3) CHOL/HDLC RATIO (test code = 3.6 (calc) 9830-1) NON HDL CHOLESTEROL (test code 71 mg/dL(calc) = 76154-7) HEMOGLOBIN [id number] 00:00:00 Test Item Value Reference Range Interpretation Comments HEMOGLOBIN A1c (test code = 6.9 %oftotalb 4548-4) CBC (H/H, RBC, INDICES, WBC, PLT)2020-02-07 00:00:00 Test Item Value Reference Range Interpretation Comments WHITE BLOOD CELL COUNT (test 12.9 Thousand/uL code = 6690-2) RED BLOOD CELL COUNT (test 3.04 Million/uL code = 789-8) HEMOGLOBIN (test code = 8.3 g/dL 718-7) HEMATOCRIT (test code = 27.6 % 4544-3) MCV (test code = 787-2) 90.8 fL MCH (test code = 785-6) 27.3 pg MCHC (test code = 786-4) 30.1 g/dL RDW (test code = 788-0) 14.6 % PLATELET COUNT (test code = 288 Thousand/uL 777-3) MPV (test code = 776-5) 8.7 fL CBC (H/H, RBC, INDICES, WBC, PLT)2020-02-07 00:00:00 Test Item Value Reference Range Interpretation Comments WHITE BLOOD CELL COUNT (test 12.9 Thousand/uL code = 6690-2) RED BLOOD CELL COUNT (test 3.04 Million/uL code = 789-8) HEMOGLOBIN (test code = 8.3 g/dL 718-7) HEMATOCRIT (test code = 27.6 % 4544-3) MCV (test code = 787-2) 90.8 fL MCH (test code = 785-6) 27.3 pg MCHC (test code = 786-4) 30.1 g/dL RDW (test code = 788-0) 14.6 % PLATELET COUNT (test code = 288 Thousand/uL 777-3) MPV (test code = 776-5) 8.7 fL COMPREHENSIVE METABOLIC [id number] 00:00:00 Test Item Value Reference Range Interpretation Comments GLUCOSE (test code = 2345-7) 118 mg/dL UREA NITROGEN (BUN) (test 84 mg/dL code = 3094-0) CREATININE (test code = 4.60 mg/dL 216-0) eGFR NON-AFR. BOTSWANAN (test 12 mL/min/1.73m2 code = 89232-6) eGFR (test 14 mL/min/1.73m2 code = 48258-3) BUN/CREATININE RATIO (test 18 (calc) code = 3097-3) SODIUM (test code = 2951-2) 140 mmol/L POTASSIUM (test code = 4.7 mmol/L 2823-3) CHLORIDE (test code = 110 mmol/L 5-0) CARBON DIOXIDE (test code = 20 mmol/L 2027-9) CALCIUM (test code = 7.9 mg/dL 48346-5) PROTEIN, TOTAL (test code = 5.8 g/dL 2885-2) ALBUMIN (test code = 1751-7) 2.8 g/dL GLOBULIN (test code = 3.0 g/dL(calc) 12884-8) ALBUMIN/GLOBULIN RATIO (test 0.9 (calc) code = 1759-0) BILIRUBIN, TOTAL (test code 0.4 mg/dL = 1975-2) ALKALINE PHOSPHATASE (test 100 U/L code = 6768-6) AST (test code = 1920-8) 34 U/L ALT (test code = 1742-6) 60 U/L LIPID PANEL (REFL)2020-02-07 00:00:00 Test Item Value Reference Range Interpretation Comments CHOLESTEROL, TOTAL (test code 98 mg/dL = 2093-3) HDL CHOLESTEROL (test code = 27 mg/dL 5-9) TRIGLYCERIDES (test code = 137 mg/dL 2571-8) LDL-CHOLESTEROL (test code = 49 mg/dL(calc) 88721-2) CHOL/HDLC RATIO (test code = 3.6 (calc) 9830-1) NON HDL CHOLESTEROL (test code 71 mg/dL(calc) = 20588-6) CULTURE, [id number] 00:00:00 Test Item Value Reference Range Interpretation Comments CULTURE, ROUTINE (test SPECIMEN NUMBER: code = 58521) [id number] CULTURE, [id number] 00:00:00 Test Item Value Reference Range Interpretation Comments CULTURE, ROUTINE (test SPECIMEN NUMBER: code = 77180) [id number] CULTURE, [id number] 00:00:00 Test Item Value Reference Range Interpretation Comments CULTURE, ROUTINE (test SPECIMEN NUMBER: code = 52872) [id number] CULTURE, [id number] 00:00:00 Test Item Value Reference Range Interpretation Comments CULTURE, ROUTINE (test SPECIMEN NUMBER: code = 00633) [id number] COMPREHENSIVE METABOLIC [id number] 00:00:00 Test Item Value Reference Range Interpretation Comments GLUCOSE (test code = 2345-7) 229 mg/dL UREA NITROGEN (BUN) (test 48 mg/dL code = 3094-0) CREATININE (test code = 3.26 mg/dL 2160-0) eGFR NON-AFR. BOTSWANAN (test 19 mL/min/1.73m2 code = 84043-8) eGFR (test 22 mL/min/1.73m2 code = 35369-8) BUN/CREATININE RATIO (test 15 (calc) code = 3097-3) SODIUM (test code = 2951-2) 139 mmol/L POTASSIUM (test code = 4.5 mmol/L 2823-3) CHLORIDE (test code = 106 mmol/L 5-0) CARBON DIOXIDE (test code = 20 mmol/L 2027-9) CALCIUM (test code = 9.2 mg/dL 72709-7) PROTEIN, TOTAL (test code = 6.5 g/dL 2885-2) ALBUMIN (test code = 1751-7) 3.5 g/dL GLOBULIN (test code = 3.0 g/dL(calc) 17731-7) ALBUMIN/GLOBULIN RATIO (test 1.2 (calc) code = 1759-0) BILIRUBIN, TOTAL (test code 0.4 mg/dL = 1974-2) ALKALINE PHOSPHATASE (test 131 U/L code = 6768-6) AST (test code = 1920-8) 12 U/L ALT (test code = 1742-6) 23 U/L LIPID [id number] 00:00:00 Test Item Value Reference Range Interpretation Comments CHOLESTEROL, TOTAL (test code 112 mg/dL = 3-3) HDL CHOLESTEROL (test code = 27 mg/dL 9) TRIGLYCERIDES (test code = 171 mg/dL 2571-8) LDL-CHOLESTEROL (test code = 60 mg/dL(calc) 56946-2) CHOL/HDLC RATIO (test code = 4.1 (calc) 9830-1) NON HDL CHOLESTEROL (test code 85 mg/dL(calc) = 16545-0) HEMOGLOBIN [id number] 00:00:00 Test Item Value Reference Range Interpretation Comments HEMOGLOBIN A1c (test code = 9.2 %oftotalb 4548-4) [id number] 00:00:00 Test Item Value Reference Range Interpretation Comments TSH (test code = 3016-3) 4.60 mIU/L COMPREHENSIVE METABOLIC [id number] 00:00:00 Test Item Value Reference Range Interpretation Comments GLUCOSE (test code = 2345-7) 229 mg/dL UREA NITROGEN (BUN) (test 48 mg/dL code = 3094-0) CREATININE (test code = 3.26 mg/dL 2160-0) eGFR NON-AFR. BOTSWANAN (test 19 mL/min/1.73m2 code = 23343-6) eGFR (test 22 mL/min/1.73m2 code = 08846-2) BUN/CREATININE RATIO (test 15 (calc) code = 3097-3) SODIUM (test code = 2951-2) 139 mmol/L POTASSIUM (test code = 4.5 mmol/L 2823-3) CHLORIDE (test code = 106 mmol/L 2074-0) CARBON DIOXIDE (test code = 20 mmol/L 2028-04) CALCIUM (test code = 9.2 mg/dL 34251-9) PROTEIN, TOTAL (test code = 6.5 g/dL 2885-2) ALBUMIN (test code = 1751-7) 3.5 g/dL GLOBULIN (test code = 3.0 g/dL(calc) 31710-5) ALBUMIN/GLOBULIN RATIO (test 1.2 (calc) code = 1759-0) BILIRUBIN, TOTAL (test code 0.4 mg/dL = 1975-2) ALKALINE PHOSPHATASE (test 131 U/L code = 6768-6) AST (test code = 1920-8) 12 U/L ALT (test code = 1742-6) 23 U/L LIPID [id number] 00:00:00 Test Item Value Reference Range Interpretation Comments CHOLESTEROL, TOTAL (test code 112 mg/dL = 2093-3) HDL CHOLESTEROL (test code = 27 mg/dL 2085-9) TRIGLYCERIDES (test code = 171 mg/dL 2571-8) LDL-CHOLESTEROL (test code = 60 mg/dL(calc) 69813-2) CHOL/HDLC RATIO (test code = 4.1 (calc) 9830-1) NON HDL CHOLESTEROL (test code 85 mg/dL(calc) = 14696-7) HEMOGLOBIN [id number] 00:00:00 Test Item Value Reference Range Interpretation Comments HEMOGLOBIN A1c (test code = 9.2 [facility] [id number] 00:00:00 Test Item Value Reference Range Interpretation Comments TSH (test code = 3016-3) 4.60 mIU/L [id number] 13:30:00 Test Item Value Reference Range Interpretation Comments GLUBED (test code = 179 mg/dL 74-106 H Performe d by certified GLUBED) steeping press operator at [facility] [id number] 06:14:00 Test Item Value Reference Range Interpretation Comments GLUBED (test code = 139 mg/dL 74-106 H Performe d by certified GLUBED) steeping press operator at [facility] [id number] 04:42:00 Test Item Value Reference Range Interpretation Comments GLUBED (test code = 166 mg/dL 74-106 H Performe d by certified GLUBED) steeping press operator at [facility] [id number] 21:05:00 Test Item Value Reference Range Interpretation Comments GLUBED (test code = 311 mg/dL 74-106 H Performe d by certified GLUBED) steeping press operator at [facility] [id number] 17:31:00 Test Item Value Reference Range Interpretation Comments GLUBED (test code = 200 mg/dL 74-106 H Performe d by certified GLUBED) steeping press operator at [facility] [id number] 12:34:00 Test Item Value Reference Range Interpretation Comments GLUBED (test code = 225 mg/dL 74-106 H Performe d by certified GLUBED) steeping press operator at [facility] BASIC METABOLIC [id number] 07:17:00 Test Item Value Reference Range Interpretation [...] GFR) formula.Chronic kidney disease is defined as [facility] kidney damageor GFR <60 mL/min/1.73 m2 for >3 months. CREATININE (test code 2.80 mg/dL 0.7-1.3 H = CREAT) BUN/CREATININE RATIO 16.4 10-20 N (test code = BUN/CREA) CALCIUM (test code = 8.8 mg/dL 8.5-10.1 N CA) [id number] 05:08:00 Test Item Value Reference Range Interpretation Comments GLUBED (test code = 146 mg/dL 74-106 H Performe d by certified GLUBED) steeping press operator at [facility] BASIC METABOLIC [id number] 03:11:00 Test Item Value Reference Range Interpretation [...] GFR) formula.Chronic kidney disease is defined as [facility] kidney damageor GFR <60 mL/min/1.73 m2 for >3 months. CREATININE (test code 2.80 mg/dL 0.7-1.3 H = CREAT) BUN/CREATININE RATIO 18.9 10-20 N (test code = BUN/CREA) CALCIUM (test code = 8.7 mg/dL 8.5-10.1 N CA) [id number] 03:11:00 Test Item Value Reference Range Interpretation Comments MAGNESIUM (test code = MAG) 2.0 mg/dL 1.8-2.4 N CBC W/O [id number] 03:02:00 Test Item Value Reference Range Interpretation [...] code 8.8 fL 6.7-11.0 N = MPV) [id number] 21:06:00 Test Item Value Reference Range Interpretation Comments GLUBED (test code = 283 mg/dL 74-106 H Performe d by certified GLUBED) steeping press operator at [facility] [id number] 18:12:00 Test Item Value Reference Range Interpretation Comments GLUBED (test code = 207 mg/dL 74-106 H Performe d by certified GLUBED) steeping press operator at [facility] [id number] 12:02:00 Test Item Value Reference Range Interpretation Comments GLUBED (test code = 220 mg/dL 74-106 H Performe d by certified GLUBED) steeping press operator at [facility] [id number] 06:47:00 Test Item Value Reference Range Interpretation Comments GLUBED (test code 142 mg/dL 74-106 H Performed by certified = GLUBED) [facility]~ [id number] 06:29:00 Test Item Value Reference Range Interpretation Comments GLUBED (test code 212 mg/dL 74-106 H Performed by certified = GLUBED) [facility]~ BASIC METABOLIC [id number] 02:36:00 Test Item Value Reference Range Interpretation [...] GFR) formula.Chronic kidney disease is defined as [facility] kidney damageor GFR <60 mL/min/1.73 m2 for >3 months. CREATININE (test code 3.00 mg/dL 0.7-1.3 H = CREAT) BUN/CREATININE RATIO 20.3 10-20 H (test code = BUN/CREA) CALCIUM (test code = 8.7 mg/dL 8.5-10.1 N CA) [id number] 02:36:00 Test Item Value Reference Range Interpretation Comments MAGNESIUM (test code = MAG) 2.0 mg/dL 1.8-2.4 N BASIC METABOLIC [id number] 02:21:00 Test Item Value Reference Range Interpretation [...] CALCIUM (test code = CA) mg/dL 8.5-10.1 [id number] 02:21:00 Test Item Value Reference Range Interpretation Comments MAGNESIUM (test code = MAG) mg/dL 1.8-2.4 CBC W/O [id number] 01:44:00 Test Item Value Reference Range Interpretation [...] fL 6.7-11.0 N (test code = MPV) [id number] 17:37:00 Test Item Value Reference Range Interpretation Comments GLUBED (test code = 274 mg/dL 74-106 H Performe d by certified GLUBED) steeping press operator at [facility] [id number] 12:37:00 Test Item Value Reference Range Interpretation Comments GLUBED (test code = 187 mg/dL 74-106 H Performe d by certified GLUBED) steeping press operator at [facility] [id number] 11:42:00 Test Item Value Reference Range Interpretation Comments GLUBED (test code = 188 mg/dL 74-106 H Performe d by certified GLUBED) steeping press operator at [facility] - XR CHEST 1 [id number] 09:18:00 FAX: Reji Hernandez MD [place]: St: [facility] FAX: Asmita David NP [phone] Name: JAROD YU [facility] : 1955 Age/S: 63/M [address] [facility] Unit #: [id number] Loc: V.2058 [place] [address] Phys: Asmita David NP Acct: [id number] Dis Date: Status: ADM IN PHONE #: [phone] Exam Date: 06/16/2019 0858 FAX #: [phone] Reason: CHF EXAMS: CPT CODE: [id number] XR CHEST 1 V 81349 HISTORY: CHF. COMPARISON: Previous day. Left ICD is unchanged. Mild congestion. Small basilar effusions. Dependent changes. Small basilar effusions. Dependent changes. Cardiomegaly. IMPRESSION: Mild congestion is unchanged. at 0918 Reported and signed by: Anjum Helton M.D. CC: Reji Hernandez MD; Asmita David NP Technologist: ALETA MUHAMMAD JR Trnscrd Date/Time/By: 06/16/2019 (09) : By: [email or web address] Orig Print D/T: S: 06/16/2019 (6706) PAGE 1 Signed ReportBASIC METABOLIC [id number] 08:56:00 Test Item Value Reference Range Interpretation [...] GFR) formula.Chronic kidney disease is defined as [facility] kidney damageor GFR <60 mL/min/1.73 m2 for >3 months. CREATININE (test code 3.00 mg/dL 0.7-1.3 H = CREAT) BUN/CREATININE RATIO 19.3 10-20 N (test code = BUN/CREA) CALCIUM (test code = 8.5 mg/dL 8.5-10.1 N CA) [id number] 08:56:00 Test Item Value Reference Range Interpretation Comments MAGNESIUM (test code = MAG) 2.1 mg/dL 1.8-2.4 N CBC W/AUTO [id number] 08:44:00 Test Item Value Reference Range Interpretation [...] code = 0.00 K/mm3 0.0-0.1 N NRBC#) [id number] 08:27:00 Test Item Value Reference Range Interpretation Comments GLYCOSYLATED HEMOGLOBIN (HA1C) 9.7 % HbA1 4.8-6.0 H (test code = GLYHGB) ESTIMATED AVERAGE GLUCOSE (test 232 MG/DL code = EAG) [id number] 06:14:00 Test Item Value Reference Range Interpretation Comments GLUBED (test code = 134 mg/dL 74-106 H Performe d by certified GLUBED) steeping press operator at [facility] [id number] 04:22:00 Test Item Value Reference Range Interpretation Comments GLUBED (test code = 146 mg/dL 74-106 H Performe d by certified GLUBED) steeping press operator at [facility] [id number] 21:25:00 Test Item Value Reference Range Interpretation Comments GLUBED (test code = 179 mg/dL 74-106 H Performe d by certified GLUBED) steeping press operator at [facility] UR MICROALBUMIN/CREAT [id number] 17:08:00 Test Item Value Reference Range Interpretation Comments UR CREATININE 36.1 mg/dL Not Estab. RANDOM-NON REPRT (test code = CREATUT) UR MICROALBUMIN QUANT 1409.7 ug/mL Not Estab. Result s confirmed (test code = MICALB) ondilut ion. UR MICROALB/CREAT 3905.0 0.0-30.0 H INFCE Resu lt Units: RATIO (test code = mg/g crea t Normal: MICALB:CRE) 0.0 - 30.0 Albuminuria: 31 .0 - 300.0 Clinical albuminuria: >300.0Perfor med At: [facility] [address] [place], [place] [id number] Preston Reynolds MD [phone] [id number] 16:47:00 Test Item Value Reference Range Interpretation Comments GLUBED (test code = 173 mg/dL 74-106 H Performe d by certified GLUBED) steeping press operator at [facility] [id number] 10:07:00 Test Item Value Reference Range Interpretation Comments GLUBED (test code = 151 mg/dL 74-106 H Performe d by certified GLUBED) steeping press operator at [facility] [id number] 07:12:00 Test Item Value Reference Range Interpretation Comments TROPONIN-I (test code = TROPI) 2.350 ng/mL 0-0.045 HH COMMENTS TO BREAD BAKER: COLLECT 3 HOURS AFTER PREVIOUS SAMPLE- XR CHEST 1 V 2019-06-15 06:25:00 FAX: Piter Collins [phone] [place]: St: ADM FAX: Reji Hernandez MD Name: JAROD YU [facility] : 1955 Age/S: 63/M [address] [facility] Unit #: [id number] Loc: V.S06 [place] [address] Phys: Piter Collins Acct: [id number] Dis Date: Status: ADM IN PHONE #: [phone] Exam Date: 06/15/2019510 FAX #: [phone] Reason: updated pulm view EXAMS: CPT CODE: [id number] XR CHEST 1 V 39703 CLINICAL HISTORY: Respiratory failure, CHF TECHNIQUE: AP chest x-ray COMPARISON: Previous day. IMPRESSION: Slightly worse bilateral airspace opacification and small pleural effusions. Cardiomegaly. AICD/biventricular pacer. LOCATION: LP at 0625 Reported and signed by: Eliz Ocampo D.O. CC: Piter Collins; Reji Hernandez MD Technologist: ALETA Bryan Trntxrd Date/Time/By: 06/15/2019 (06) : By: [email or web address] Orig Print D/T: S: 06/15/2019 ( 06) PAGE 1 Signed ReportPROCALCITONIN (PCT)2019-06-15 06:18:00 Test Item Value Reference Range Interpretation Comments PROCALCITONIN (PCT) 0.12 ng/ml Concentr ation (test code = PROCAL) Interpr etation (ng/mL) ------- ------- <0.51 Sepsis is not likely. Local bacterial infec tion is possible. (LOW RISK for progression to Sepsis) 0.51 - 2.00 Sepsis is possi ble, but other condi tions are known to el evate PCT as well. (M ODERATE RISK for progre ssion to Sepsis) > 2. 00 Sepsis is likel y, unless other ca uses are known. (HIG H RISK for progression to Severe Sepsis o r Septic Shock) 1 0.00 High likelihood of Severe Sepsis o r Septic or highe r Shock. *Increas ed PCT levels may not always be related to s ystemic bacterial infection.*Low PCT levels do not automatically e xclude the presence of bacterial infection.*All results should be inter preted taking into acc ount the patients hi story. COMPREHENSIVE METABOLIC [id number] 06:07:00 Test Item Value Reference Range Interpretation [...] MDRD formula.Chronic kidney disease is defined as [facility] kidney damageor GFR <60 mL/min/1.73 [...] range due ALKP) to change in reagent. [id number] 06:07:00 Test Item Value Reference Range Interpretation Comments MAGNESIUM (test code = MAG) 2.2 mg/dL 1.8-2.4 N [id number] 05:29:00 Test Item Value Reference Range Interpretation Comments GLUBED (test code = 180 mg/dL 74-106 H Performe d by certified GLUBED) steeping press operator at [facility] CBC W/AUTO [id number] 05:09:00 Test Item Value Reference Range Interpretation [...] code = 0.00 K/mm3 0.0-0.1 N NRBC#) [id number] 21:16:00 Test Item Value Reference Range Interpretation Comments GLUBED (test code = 186 mg/dL 74-106 H Performe d by certified GLUBED) steeping press operator at [facility] [id number] 16:21:00 Test Item Value Reference Range Interpretation Comments GLUBED (test code = 229 mg/dL 74-106 H Performe d by certified GLUBED) steeping press operator at [facility] UR SMEAR EOSINOPHIL [id number] 16:03:00 Test Item Value Reference Range Interpretation Comments UR SMEAR EOSINOPHIL COUNT NONE SEEN per HPF NONE SEEN (test code = EOSCTU) UR NA,[id number] 16:03:00 Test Item Value Reference Range Interpretation Comments UR NA,RANDOM (test code = NOEMÍ) 113 mmol/L 20-110 H UR CHLORIDE [id number] 16:03:00 Test Item Value Reference Range Interpretation Comments UR CHLORIDE RANDOM (test code = 118 mEq/L CLU) UR PROTEIN/CREATININE [id number] 16:03:00 Test Item Value Reference Range Interpretation [...] (test code = P/CRATIO) UR SMEAR EOSINOPHIL [id number] 15:08:00 Test Item Value Reference Range Interpretation Comments UR SMEAR EOSINOPHIL COUNT (test code per HPF NONE SEEN = EOSCTU) UR NA,[id number] 15:08:00 Test Item Value Reference Range Interpretation Comments UR NA,RANDOM (test code = NOEMÍ) 113 mmol/L 20-110 H UR CHLORIDE [id number] 15:08:00 Test Item Value Reference Range Interpretation Comments UR CHLORIDE RANDOM (test code = 118 mEq/L CLU) UR PROTEIN/CREATININE [id number] 15:08:00 Test Item Value Reference Range Interpretation [...] (test code = P/CRATIO) UR SMEAR EOSINOPHIL [id number] 14:58:00 Test Item Value Reference Range Interpretation Comments UR SMEAR EOSINOPHIL COUNT (test code per HPF NONE SEEN = EOSCTU) UR NA,[id number] 14:58:00 Test Item Value Reference Range Interpretation Comments UR NA,RANDOM (test code = NOEMÍ) 113 mmol/L 20-110 H UR CHLORIDE [id number] 14:58:00 Test Item Value Reference Range Interpretation Comments UR CHLORIDE RANDOM (test code = 118 mEq/L CLU) UR PROTEIN/CREATININE [id number] 14:58:00 Test Item Value Reference Range Interpretation Comments UR PROTEIN RANDOM (test code = PROTU) mg/dL 0.0-11.9 UR CREATININE RANDOM (test code = mg/dL 30-125 CREATU) PROTEIN/CREATININE RATIO (test code = RATIO 0.0-0.20 P/CRATIO) [id number] 13:09:00 Test Item Value Reference Range Interpretation Comments GLUBED (test code = 214 mg/dL 74-106 H Performe d by certified GLUBED) steeping press operator at [facility] URINALYSIS [id number] 11:40:00 Test Item Value Reference Range Interpretation [...] 0-5 code = HYALU) Urine Source? Clean [id number] 11:38:00 Test Item Value Reference Range Interpretation Comments GLUBED (test code = 203 mg/dL 74-106 H Performe d by certified GLUBED) steeping press operator at [facility] URINALYSIS [id number] 11:35:00 Test Item Value Reference Range Interpretation [...] per HPF NONE BACU) Urine Source? Clean [id number] 07:40:00 Test Item Value Reference Range Interpretation Comments TROPONIN-I (test code = TROPI) 1.380 ng/mL 0-0.045 SPECIMEN COMMENTS: 0200 LAB- XR CHEST 1 [id number] 07:30:00 FAX: Piter Collins [phone] [place]: B St: [facility] FAX: Reji Hernandez MD Name: JAROD YU [place] [facility] : 1955 Age/S: 63/M [address] [facility] Unit #: [id number] Loc: [place]6 [place] [address] Phys: Piter Collins Acct: [id number] Dis Date: Status: ADM IN PHONE #: [phone] Exam Date: 06/14/2019 0649 FAX #: [phone] Reason: updated pulm view. EXAMS: CPT CODE: [id number] XR CHEST 1 V 07178 CLINICAL HISTORY: Respiratory failure, CHF TECHNIQUE: AP chest x-ray COMPARISON: Previous day. IMPRESSION: Improved patchy bilateral airspace opacification or pulmonary congestion. Small bilateral pleural effusions. Cardiomegaly. AICD/biventricular pacer. LOCATION: at 0730 Reported and signed by: Eliz Ocampo D.O. CC: Piter Collins; Reji Hernandez MDTechnologist: Chanell Lang) Trnscrd Date/Time/By: 06/14/2019 (0730) : By: [email or web address] Orig Print D/T: S: 06/14/2019 (0733) PAGE 1 Signed ReportBASIC METABOLIC [id number] 03:27:00 Test Item Value Reference Range Interpretation [...] CALCIUM (test code = CA) mg/dL 8.5-10.1 [id number] 03:27:00 Test Item Value Reference Range Interpretation Comments MAGNESIUM (test code = MAG) mg/dL 1.8-2.4 BASIC METABOLIC [id number] 03:27:00 Test Item Value Reference Range Interpretation [...] GFR) formula.Chronic kidney disease is defined as [facility] kidney damageor GFR <60 mL/min/1.73 m2 for >3 months. CREATININE (test code 2.70 mg/dL 0.7-1.3 H = CREAT) BUN/CREATININE RATIO 18.8 10-20 N (test code = BUN/CREA) CALCIUM (test code = 7.3 mg/dL 8.5-10.1 L CA) [id number] 03:27:00 Test Item Value Reference Range Interpretation Comments MAGNESIUM (test code = MAG) 2.0 mg/dL 1.8-2.4 N CBC W/O [id number] 03:06:00 Test Item Value Reference Range Interpretation [...] code 8.8 fL 6.7-11.0 N = MPV) [id number] 00:03:00 Test Item Value Reference Range Interpretation Comments TROPONIN-I (test 1.480 ng/mL 0-0.045 HH RESULT VERI FIED BY code = TROPI) REPEAT ANALYSI S COMMENTS TO BREAD BAKER: COLLECT 3 HOURS AFTER PREVIOUS SAMPLE- US RETRO LTD 2019-06-13 18:28:00 Name: JAROD [facility] : 1955 Age/S: 63 / M [address] [facility] Unit #: [id number] Loc: [place] [address] Phys: Reji Hernandez MD Acct: [id number] Dis Date: Status: ADM IN PHONE #: [phone] Exam Date: 06/13/2019 1703 FAX #: [phone] Reason: ckd EXAMS: CPT CODE: [id number] US RETRO LTD 59391 REASON FOR EXAM: ckd EXAM ORDER DATE: 06/13/2019 3:06 PM Attending MAnnalisa.: Reji Hernandez MD PROCEDURE: - US RETRO [...] Ureteral jets: Not visualized Intraluminal masses/debris: None Wall thickness: Normal Outpouching: None IMPRESSION: Nonobstructive stone in the right kidney. Left kidney is within normal limits. Location: [facility] at 1828 Reported and signed by: Yoandy Calero MD PAGE 1 Signed Report (CONTINUED) Name: JAROD [facility] : 1955 Age/S: 63 / M [address] Unit #: [id number] Loc: [place] [address] Phys: Reji Hernandez MD Acct: [id number] Dis Date: Status: ADM IN PHONE #: [phone] Exam Date: 06/13/2019 1703 FAX #: [phone] Reason: ckd EXAMS: CPT CODE: [id number] RETRO LTD 06286 (Continued) CC: Krystina Kowalski MD; Reji Hernandez MD Technologist: Ladi Ruiz RDMS Trnscb Date/Time: 06/13/2019 (1827) [email or web address] Orig Print D/T: S: 06/13/2019 (183)Probe: PAGE 2 Signed ReportPROTHROMBIN [id number] 14:57:00 Test Item Value Reference Range Interpretation [...] ion INR range Pulmonary embol ism treatment (2.0-3.0)Venous thrombosis treatmentVenous thrombosis prophylaxis (hi gh risk surgery)Prevent ion of systemic emboli sm from: Acute myocardial infa rction Valvular heart disease Atrial fibrillation Mechanical pros thetic heart valves (2.5-3.5) IS PATIENT ON ANTICOAGULANTS? NTHROMBOPLASTIN TIME [id number] 14:57:00 Test Item Value Reference Range Interpretation Comments THROMBOPLASTIN TIME PARTIAL 47.3 seconds 25.0-36.5 H (test code = PTT) IS PATIENT ON ANTICOAGULANTS? [id number] 14:57:00 Test Item Value Reference Range Interpretation Comments D-DIMER (test 27609.00 0-500 HH RESULT VERIFIE D BY REPEAT code = DDIMER) ng/mLFEU ANALYSISCriti ilda results verified and re ad back by Nurse? YClinica l Cut-off value for D-Dim er is 500 ng/mL FEU. Comm ent: The [employer] D-Dim er assay is intended for use asan aid in the diag nosis of venous thromboe mbolism (VTE)[deep vein thrombosis (DVT ) or pulmonary embol ism (PE)].The measu rement of D-Dimer should not be used as an aid inthe diagnosis of VT E, in patient with: -Therapeutic do se anticoagulant t herapy for >24 hours -Fibr inolytic therapy within previous 7 days -Trauma or surgery within previous 4 weeks -Disseminated malignancies -A ortic aneurysm -Sepsi s, severe infections, pne umonia, severe skin inf ections -Liver cirrhosi s - IS PATIENT ON ANTICOAGULANTS? NB-TYPE NATRIURETIC [id number] 14:38:00 Test Item Value Reference Range Interpretation Comments B-TYPE NATRIURETIC PEPTIDE 1317.60 pgram/mL 0-100 H (test code = BNP) BASIC METABOLIC [id number] 14:36:00 Test Item Value Reference Range Interpretation [...] 8.6 mg/dL 8.5-10.1 N CA) HEPATIC FUNCTION [id number] 14:36:00 Test Item Value Reference Range Interpretation [...] code = 105 IUnit/L 26-208 N CK) [id number] 14:36:00 Test Item Value Reference Range Interpretation Comments LIPASE (test code = LIP) 241 U/L 73.0-393.0 N [id number] 14:36:00 Test Item Value Reference Range Interpretation Comments MAGNESIUM (test code = MAG) 2.3 mg/dL 1.8-2.4 N [id number] 14:36:00 Test Item Value Reference Range Interpretation Comments TROPONIN-I (test 1.890 ng/mL 0-0.045 HH Results ilda led to code = TROPI) [id number] by Azeem NOE 06/13/19 1433Cr itical results verifie d and read back by Nu rse? Y LACTIC [id number] 14:27:00 Test Item Value Reference Range Interpretation Comments LACTIC ACID (test code = LACT) 0.9 mmol/L 0.4-1.9 N BASIC METABOLIC [id number] 14:16:00 Test Item Value Reference Range Interpretation [...] code = CA) mg/dL 8.5-10.1 HEPATIC FUNCTION [id number] 14:16:00 Test Item Value Reference Range Interpretation [...] (CK) (test code = IUnit/L 26-208 CK) [id number] 14:16:00 Test Item Value Reference Range Interpretation Comments LIPASE (test code = LIP) U/L 73.0-393.0 [id number] 14:16:00 Test Item Value Reference Range Interpretation Comments MAGNESIUM (test code = MAG) mg/dL 1.8-2.4 [id number] 14:16:00 Test Item Value Reference Range Interpretation Comments TROPONIN-I (test code = TROPI) ng/mL 0-0.045 CBC W/AUTO [id number] 14:10:00 Test Item Value Reference Range Interpretation [...] 0.0-0.1 N NRBC#) - XR CHEST 1 [id number] 14:01:00 FAX: Krystina Banda [phone] [place]: St: PRE Name: [facility] : 1955 Age[facility]S: 63[facility] [address] [facility] #: [id number] Loc: [place] [address] Phys: Krystina Kowalski MD Acct: [id number] Dis Date: Status: PRE ER PHONE #: [phone] Exam Date: 06/13/2019 1350 FAX #: [phone] Reason: SHORTNESS OF BREATH EXAMS: CPT CODE: [id number] XR CHEST 1 V 18527 HISTORY: Shortness of breath. COMPARISON: None available. Left ICD with the leads in the right atrium and right ventricle patchy right infiltrate. Left basal infiltrate as well. Dependent changes. No effusion. Cardiomegaly. IMPRESSION: Patchy bilateral infiltrates, greater on the right. at 1401 Reported and signed by: Anjum Helton M.D. CC: Krystina Kowalski MD Technologist: PINKY KONG RT(R) Trnscrd Date/Time/By: 06/13/2019 (8524) : By: [email or web address] Orig Print D/T: S: 06/13/2019 (7578) PAGE 1 Signed ReportARTERIAL BLOOD [id number] 13:59:00 Test Item Value Reference Range Interpretation [...]
[2022-04-10 07:58] LABS: Absolute Lymphocytes (CBC) 1.1 K/uL (0.7-4.9); Hematocrit 44.1 % (39.6-49.0); Lymphocytes % 5.5 % (15.3-44.8); MCV 100.6 fL (80-100); MPV 8.3 fL (7.6-11.3); RBC Red Blood Cell Count 4.39 M/uL (4.33-5.43)
--- NOTE | 2022-04-10 08:30 | RAD REPORT ---
EXAM DESCRIPTION: CT - Head Brain Wo Cont - 04/10/2022 8:17 am CLINICAL HISTORY: Mental status change, unknown cause COMPARISON: HEAD BRAIN W O CONTRAST dated 06/14/2007; HEAD BRAIN W O CONTRAST dated 06/14/2007 TECHNIQUE: All CT scans are performed using dose optimization technique as appropriate and may inclu de automated exposure control or mA/KV adjustment according to patient size. 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 No acute large vascular territory infarct. M ild chronic small vessel ischemic changes. The paranasal sinuses and mastoids are clear. The calvarium is intact. IMPRESSION: No definite acute intracranial abnormality. A remote moderate-sized right frontal lobe i nfarct is noted. No acute large vascular territory infarct is identified. MRI could better assess if there is high clinical concern for a small superimposed acute infarct. .
[2022-04-10 08:32] LABS: SARS-CoV-2 Antigen Rapid Res Positive (Negative)
[2022-04-10 08:44] LABS: Anisocytosis 1+; Blood Morphology Comment NOTED (NOT SEEN); Macrocytosis 1+; Platelet Estimate DECR; White Blood Cell Scan OK (OK)
--- NOTE | 2022-04-10 08:44 | RAD REPORT ---
EXAM DESCRIPTION: RAD - Chest Single View - 04/10/2022 8:32 am CLINICAL HISTORY: COUGH COMPARISON: Chest Single View dated 11/06/2021; Chest Single View dated 08/18/2021; Chest Single View dated 08/17/2021; Chest Single View dated 04/10/2021 FINDINGS: Lines: Pacemaker/ICD. Lungs: No evidence of edema or pneumonia. Pleural: No significant pleural effusions or pneumothorax. Cardiac: Cardiomegaly. Bones: No acute fractures. Other: IMPRESSION: No acute cardiopulmonary disease.
[2022-04-10 08:45] LABS: Platelets, Giant FEW
[2022-04-10 08:47] LABS: Urine Blood Trace-intact (Negative); Urine Glucose Negative (Negative); Urine Protein 2+ (Negative); Urine Specific Gravity >=1.030 (1.005-1.030); Urine pH 5.5 (5.0-7.0)
[2022-04-10] MEDS ORDERED: CEFTRIAXONE 1000 MG/VIAL ONE (08:59)
--- NOTE | 2022-04-10 09:11 | ER ---
Nurse's Notes [facility] Name: Jarod Kraft Age: 66 yrs Sex: Male : 1955 Arrival Date: 04/10/2022 Time: 06:56 Bed 13 Private MD: Diagnosis: Altered mental status, unspecified;End stage renal disease-on HD M,W,F;Coronavirus infection, unspecified;SARS-associated coronavirus as the cause of diseases classified elsewhere;Fever, unspecified;Sepsis, unspecified organism;UTI/ Urinary tract infection, site not specified;Elevated white blood cell count;Abnormal serum enzyme level, unspecified-ELEVATED TROPONIN Presentation: 04/10 06:56 Chief complaint: EMS states: Confusion and weakness noted at dialysis center, patient ke1 state not feeling well since yesterday. Coronavirus screen: Vaccine status: Patient reports receiving the 2nd dose of the covid vaccine. Ebola Screen: No symptoms or risks identified at this time. Initial Sepsis Screen: Does the patient meet any 2 criteria?. Initial Sepsis Screen: Does the patient meet any 2 criteria? No. Patient's initial sepsis screen is negative. Does the patient have a suspected source of infection? No. Patient's initial sepsis screen is negative. Risk Assessment: Do you want to hurt yourself or someone else? Patient reports no desire to harm self or others. Onset of symptoms was April 10, 2022 at 06:00. 06:56 Method Of Arrival: EMS: [facility] ke1 06:56 Acuity: ASAF 3 ke1 Triage Assessment: 07:02 General: Appears in no apparent distress. Behavior is appropriate for age. Pain: Denies ke1 pain. Neuro: Level of Consciousness is awake, alert, Oriented to person, place, time, situation. Historical: - Allergies: 07:01 Cipro; ke1 07:01 Erythromycin; ke1 - PMHx: 07:01 CHF; Diabetes - IDDM; ESRD- M/W/F; High Cholesterol; Hypertension; Irregular heart ke1 rate; Pacemaker; - PSHx: 07:01 Cholecystectomy; Dialysis Catheter; pacemaker; ke1 - Immunization history:: Client reports receiving the 2nd dose of the Covid vaccine. - Social history:: Smoking status: Patient denies any tobacco usage or history of. - Family history:: not pertinent. Screenin:00 Abuse screen: Denies threats or abuse. Denies injuries from another. Nutritional jg9 screening: No deficits noted. Tuberculosis screening: No symptoms or risk factors identified. Fall Risk None identified. Assessment: 08:00 Reassessment: No changes from previously documented assessment. Patient and/or family jg9 updated on plan of care and expected duration. Pain level reassessed. Patient is alert, oriented x 3, equal unlabored respirations, skin warm/dry/pink. 09:00 Reassessment: Patient and/or family updated on plan of care and expected duration. Pain jg9 level reassessed. Patient is alert, oriented x 3, equal unlabored respirations, skin warm/dry/pink. Patient resting in bed, NAD. 10:00 Reassessment: No changes from previously documented assessment. Patient and/or family jg9 updated on plan of care and expected duration. Pain level reassessed. Patient is alert, oriented x 3, equal unlabored respirations, skin warm/dry/pink. 11:00 Reassessment: Patient and/or family updated on plan of care and expected duration. Pain jg9 level reassessed. Patient is alert, oriented x 3, equal unlabored respirations, skin warm/dry/pink. 1 person assit to bathroom-patient able to ambulate but unsteady gait noted, patient has home walker with him. 12:00 Reassessment: No changes from previously documented assessment. Patient and/or family jg9 updated on plan of care and expected duration. Pain level reassessed. Patient is alert, oriented x 3, equal unlabored respirations, skin warm/dry/pink. 13:00 Reassessment: No changes from previously documented assessment. Patient and/or family jg9 updated on plan of care and expected duration. Pain level reassessed. Patient is alert, oriented x 3, equal unlabored respirations, skin warm/dry/pink. Patient scooting to edge of bed, advised that he is at risk of falling and should use the call button if he needs help. 14:35 Reassessment: report called to Ladi Bliss RN. jg9 Vital Signs: 06:56 Weight 99 kg; Height 5 ft. 6 in. (167.64 cm); ke1 06:56 BP 114 / 79; Pulse 101; Resp 19; Temp 99.2(O); Pulse Ox 97% on R/A; ke1 07:30 BP 128 / 92; Pulse 98; Resp 15 S; Pulse Ox 97% on 2 lpm NC; jg9 08:00 BP 125 / 92; Pulse 97; Resp 18 S; Pulse Ox 96% on 2 lpm NC; jg9 09:00 BP 121 / 89; Pulse 86; Resp 18 S; Pulse Ox 99% on 2 lpm NC; jg9 10:00 BP 103 / 78; Pulse 108; Resp 23 S; Pulse Ox 99% on 2 lpm NC; jg9 11:00 BP 113 / 80; Pulse 67; Resp 15 S; Pulse Ox 100% on 2 lpm NC; jg9 12:00 BP 120 / 83; Pulse 106; Resp 18 S; Pulse Ox 98% on 2 lpm NC; jg9 13:00 BP 122 / 92; Pulse 117; Resp 25 S; Pulse Ox 98% on 2 lpm NC; jg9 14:00 BP 130 / 98; Pulse 102; Resp 15 S; Pulse Ox 99% on 2 lpm NC; jg9 06:56 Body Mass Index 35.23 (99.00 kg, 167.64 cm) ke1 ED Course: 06:56 Patient arrived in ED. ke1 06:56 Missy Solares, RN is Primary Nurse. ke1 07:01 Triage completed. ke1 07:12 Akira Pulido MD is Attending Physician. nahed 07:43 Inserted saline lock: 22 gauge in left hand, using aseptic technique. Blood collected. jg9 08:02 Flu Sent. kc6 08:02 SARS RAPID Sent. kc6 08:19 CT Head Brain wo Cont In Process Unspecified. EDMS 08:34 XRAY Chest (1 view) In Process Unspecified. EDMS 08:48 Akira Riggs PA is PHCP. cp 09:08 Dipesh Leiva MD is Hospitalizing Provider. nahed 13:41 Arm band placed on left wrist. jg9 13:41 Patient has correct armband on for positive identification. Bed in low position. Call jg9 light in reach. Side rails up X 1. 13:42 No provider procedures requiring assistance completed. jg9 13:42 Patient admitted, IV remains in place. jg9 Administered Medications: 09:08 Drug: Rocephin (cefTRIAXone) 1 grams Route: IV; Rate: per protocol; Site: left forearm; j9 10:50 Follow up: IV Status: Completed infusion; IV Intake: 10ml j9 Medication: 13:42 VIS not applicable for this client. jg9 Intake: 10:50 IV: 10ml; Total: 10ml. jg9 Outcome: 09:10 Decision to Hospitalize by Provider. [facility] 13:42 Condition: stable j9 13:42 Admitted to ER Hold. Please see [facility] for further documentation. jg9 14:46 Patient left the ED. jg9 Signatures: Dispatcher [employer] EDMS Akira Pulido MD MD cha Page, Corey, PA PA cp Gilmore, Jennifer RN RN jg9 Missy Solares RN RN ke1 Sumi Arevalo kc6
--- NOTE | 2022-04-10 09:11 | EDPHYS ---
Physician Documentation [facility] Name: Jarod Kraft Age: 66 yrs Sex: Male : 1955 Arrival Date: 04/10/2022 Time: 06:56 Bed 13 Private MD: ED Physician Akira Pulido HPI: 04/10 09:03 This 66 yrs old Male presents to ER via EMS with complaints of ams, fever and nahed weakness. 09:03 ams in dialysis, fever. The patient presents with confusion, decreased mental status. nahed Onset: The symptoms/episode began/occurred just prior to arrival, this morning, today. Possible causes: CVA or TIA, head injury, low blood sugar, seizure, sepsis. Associated signs and symptoms: Pertinent positives: confusion, dizziness, headache, lightheadedness, nausea. Current symptoms: In the emergency department the patient's symptoms have improved, moderately. The patient reports fever, that was measured at 99.2 degrees Fahrenheit. Modifying factors: there are no obvious modifying factors. Patient's baseline: Neuro: alert and fully oriented. Historical: - Allergies: 07:01 Cipro; ke1 07:01 Erythromycin; ke1 - PMHx: 07:01 CHF; Diabetes - IDDM; ESRD- M/W/F; High Cholesterol; Hypertension; Irregular heart ke1 rate; Pacemaker; - PSHx: 07:01 Cholecystectomy; Dialysis Catheter; pacemaker; ke1 - Immunization history:: Client reports receiving the 2nd dose of the Covid vaccine. - Social history:: Smoking status: Patient denies any tobacco usage or history of. - Family history:: not pertinent. ROS: 09:03 Constitutional: Negative for fever, chills, and weight loss, Eyes: Negative for injury, nahed pain, redness, and discharge, ENT: Negative for injury, pain, and discharge, Neck: Negative for injury, pain, and swelling, Cardiovascular: Negative for chest pain, palpitations, and edema, Respiratory: Negative for shortness of breath, cough, wheezing, and pleuritic chest pain, Abdomen/GI: Negative for abdominal pain, nausea, vomiting, diarrhea, and constipation, Back: Negative for injury and pain, : Negative for injury, bleeding, discharge, and swelling, MS/Extremity: Negative for injury and deformity, Skin: Negative for injury, rash, and discoloration, Psych: Negative for depression, anxiety, suicide ideation, homicidal ideation, and hallucinations, Allergy/Immunology: Negative for hives, rash, and allergies, Endocrine: Negative for neck swelling, polydipsia, polyuria, polyphagia, and marked weight changes, Hematologic/Lymphatic: Negative for swollen nodes, abnormal bleeding, and unusual bruising. 09:03 Neuro: Positive for altered mental status, weakness. Exam: 09:03 Constitutional: This is a well developed, well nourished patient who is awake, alert, nahed and in no acute distress. Head/Face: Normocephalic, atraumatic. Eyes: Pupils equal round and reactive to light, extra-ocular motions intact. Lids and lashes normal. Conjunctiva and sclera are non-icteric and not injected. Cornea within normal limits. Periorbital areas with no swelling, redness, or edema. ENT: Nares patent. No nasal discharge, no septal abnormalities noted. Tympanic membranes are normal and external auditory canals are clear. Oropharynx with no redness, swelling, or masses, exudates, or evidence of obstruction, uvula midline. Mucous membranes moist. Neck: Trachea midline, no thyromegaly or masses palpated, and no cervical lymphadenopathy. Supple, full range of motion without nuchal rigidity, or vertebral point tenderness. No Meningismus. Chest/axilla: Normal chest wall appearance and motion. Nontender with no deformity. No lesions are appreciated. Respiratory: Lungs have equal breath sounds bilaterally, clear to auscultation and percussion. No rales, rhonchi or wheezes noted. No increased work of breathing, no retractions or nasal flaring. Abdomen/GI: Soft, non-tender, with normal bowel sounds. No distension or tympany. No guarding or rebound. No evidence of tenderness throughout. Back: No spinal tenderness. No costovertebral tenderness. Full range of motion. Male : Normal genitalia with no discharge or lesions. Skin: Warm, dry with normal turgor. Normal color with no rashes, no lesions, and no evidence of cellulitis. MS/ Extremity: Pulses equal, no cyanosis. Neurovascular intact. Full, normal range of motion. Neuro: Awake and alert, GCS 15, oriented to person, place, time, and situation. Cranial nerves II-XII grossly intact. Motor strength 5/5 in all extremities. Sensory grossly intact. Cerebellar exam normal. Normal gait. Psych: Awake, alert, with orientation to person, place and time. Behavior, mood, and affect are within normal limits. 09:03 Cardiovascular: Rate: tachycardic, actual rate is 101 bpm, Rhythm: regular, Pulses: Pulses are 4+ in bilateral radial, brachial, femoral, popliteal, posterior tibial and and dorsalis pedis arteries.. Heart sounds: normal, normal S1and S2, no S3 or S4, no murmur, no rub, no gallop, Edema: is not appreciated, JVD: is not appreciated. 09:03 ECG was reviewed by the Attending Physician. Vital Signs: 06:56 Weight 99 kg; Height 5 ft. 6 in. (167.64 cm); 1 06:56 BP 114 / 79; Pulse 101; Resp 19; Temp 99.2(O); Pulse Ox 97% on R/A; ke1 07:30 BP 128 / 92; Pulse 98; Resp 15 S; Pulse Ox 97% on 2 lpm NC; jg9 08:00 BP 125 / 92; Pulse 97; Resp 18 S; Pulse Ox 96% on 2 lpm NC; jg9 09:00 BP 121 / 89; Pulse 86; Resp 18 S; Pulse Ox 99% on 2 lpm NC; jg9 10:00 BP 103 / 78; Pulse 108; Resp 23 S; Pulse Ox 99% on 2 lpm NC; jg9 11:00 BP 113 / 80; Pulse 67; Resp 15 S; Pulse Ox 100% on 2 lpm NC; jg9 12:00 BP 120 / 83; Pulse 106; Resp 18 S; Pulse Ox 98% on 2 lpm NC; jg9 13:00 BP 122 / 92; Pulse 117; Resp 25 S; Pulse Ox 98% on 2 lpm NC; jg9 14:00 BP 130 / 98; Pulse 102; Resp 15 S; Pulse Ox 99% on 2 lpm NC; jg9 06:56 Body Mass Index 35.23 (99.00 kg, 167.64 cm) [facility] MDM: 07:12 Patient medically screened. [facility] 09:06 Differential diagnosis: viral Infection, bacterial infection, URI, bronchitis, nahed pneumonia UTI, gastroenteritis. Differential Diagnosis altered mental status, sepsis, flu. Differential Diagnosis: CVA, electrolyte abnormality, hypoglycemia, intracranial bleed, meningitis, pneumonia, seizure, sepsis, TIA, UTI, volume depletion. Data reviewed: vital signs, nurses notes, EMS record, lab test result(s), EKG, radiologic studies, CT scan, plain films. Data interpreted: compliance monitor: rate is 101 beats/min, rhythm is regular. Test interpretation: by ED physician or midlevel provider: ECG, plain radiologic studies. Counseling: I had a detailed discussion with the patient and/or guardian regarding: the historical points, exam findings, and any diagnostic results supporting the discharge/admit diagnosis, lab results, radiology results, the need for further work-up and treatment in the hospital. 04/10 07:35 Order name: Basic Metabolic Panel; Complete Time: 12:31 [facility] 04/10 07:35 Order name: CBC with Diff; Complete Time: 08:52 [facility] 04/10 07:35 Order name: LFT's; Complete Time: 12:31 [facility] 04/10 07:35 Order name: Magnesium; Complete Time: 12:31 [facility] 04/10 07:35 Order name: NT PRO-BNP; Complete Time: 12:31 [facility] 04/10 07:35 Order name: PT-INR [facility] 04/10 07:35 Order name: Troponin HS; Complete Time: 12:31 [facility] 04/10 07:35 Order name: Blood Culture Adult (2) [facility] 04/10 07:35 Order name: Lactate; Complete Time: 08:52 [facility] 04/10 07:35 Order name: SARS RAPID; Complete Time: 08:52 [facility] 04/10 07:35 Order name: Flu; Complete Time: 08:52 [facility] 04/10 07:35 Order name: Urine Culture [facility] 04/10 08:01 Order name: CBC Smear Scan; Complete Time: 08:52 [facility] 04/10 08:48 Order name: Urine Dipstick-Ancillary; Complete Time: 08:52 [facility] 04/10 10:35 Order name: Lactate [facility] 04/10 10:35 Order name: Troponin High Sensitivity [facility] 04/10 10:40 Order name: Creatine Phosphokinase [facility] 04/10 10:40 Order name: Urinalysis [facility] 04/10 10:40 Order name: CBC with Automated Diff [facility] 04/10 10:40 Order name: CBC with Automated Diff [facility] 04/10 10:40 Order name: CBC with Automated Diff [facility] 04/10 10:40 Order name: CBC with Automated Diff [facility] 04/10 10:40 Order name: Comprehensive Metabolic Panel [facility] 04/10 10:40 Order name: Comprehensive Metabolic Panel [facility] 04/10 10:40 Order name: Comprehensive Metabolic Panel [facility] 04/10 10:40 Order name: Comprehensive Metabolic Panel [facility] 04/10 10:40 Order name: Magnesium [facility] 04/10 10:40 Order name: Magnesium [facility] 04/10 10:40 Order name: Phosphorus [facility] 04/10 10:40 Order name: Phosphorus [facility] 04/10 07:35 Order name: XRAY Chest (1 view); Complete Time: 08:52 [facility] 04/10 07:35 Order name: EKG; Complete Time: 07:36 [facility] 04/10 07:35 Order name: Cardiac monitoring; Complete Time: 08:14 [facility] 04/10 07:35 Order name: EKG - Nurse/Tech; Complete Time: 07:39 [facility] 04/10 07:35 Order name: IV Saline Lock; Complete Time: 07:43 [facility] 04/10 07:35 Order name: Labs collected and sent; Complete Time: 08:14 [facility] 04/10 07:35 Order name: O2 Sat Monitoring; Complete Time: 08:14 [facility] 04/10 07:35 Order name: CT Head Brain wo Cont; Complete Time: 08:52 [facility] 04/10 07:35 Order name: Urine Dipstick-Ancillary (obtain specimen); Complete Time: 09:08 [facility] 04/10 08:01 Order name: Labs - recollect needed: recollect blue and green top hemolyzed; Complete eb Time: 09:08 04/10 09:02 Order name: Misc. Order: bebtelovimab; Complete Time: 10:50 [facility] 04/10 10:40 Order name: Physical Therapy Consult [facility] 04/10 10:40 Order name: Heart Healthy [facility] 04/10 10:41 Order name: Protime (+INR) [facility] 04/10 10:41 Order name: Protime (+INR) [facility] 04/10 11:28 Order name: Creatine Phosphokinase 9 04/10 11:28 Order name: Troponin High Sensitivity j9 04/10 11:28 Order name: Lactate 9 04/10 12:18 Order name: Labs - recollect needed: recollect lactate- timed out. Tube system down.; ss Complete Time: 13:42 04/10 12:39 Order name: Creatine Phosphokinase [facility] 04/10 12:39 Order name: Troponin High Sensitivity [facility] 04/10 13:32 Order name: Lactate [facility] EC:03 Rate is 96 beats/min. Rhythm is regular. QRS Roberts is Normal. [place] interval is normal. QT nahed interval is normal. No Q waves. T waves are Normal. No ST changes noted. Clinical impression: NSR w/ Non-specific ST/T Changes and No evidence of ischemia. Interpreted by me. Reviewed by me. Administered Medications: 09:08 Drug: Rocephin (cefTRIAXone) 1 grams Route: IV; Rate: per protocol; Site: left forearm; jg9 10:50 Follow up: IV Status: Completed infusion; IV Intake: 10ml jg9 Disposition Summary: 04/10/22 09:10 Hospitalization Ordered Hospitalization Status: Observation nahed Provider: Dipesh Leiva cha Location: Telemetry/MedSurg (observation) naehd Condition: Stable nahed Problem: new nahed Symptoms: have improved nahed Bed/Room Type: Standard nahed Room Assignment: [id number](04/10/22 14:20) eb Diagnosis - Altered mental status, unspecified nahed - End stage renal disease - on HD M,W,F nahed - Coronavirus infection, unspecified nahed - SARS-associated coronavirus as the cause of diseases classified elsewhere nahed - Fever, unspecified nahed - Sepsis, unspecified organism nahed - UTI/ Urinary tract infection, site not specified nahed - Elevated white blood cell count nahed - Abnormal serum enzyme level, unspecified - ELEVATED TROPONIN nahed Forms: - Medication Reconciliation Form nahed - SBAR form nahed Signatures: Dispatcher [employer] EDAkira Redmond MD MD cha Calderon, Audri RN RN aa5 Saloni Vazquez RN RN ss Botello, Elizabeth eb Gilmore, Jennifer RN RN jg9 Missy Solares RN RN ke1 Corrections: (The following items were deleted from the chart) 09:08 07:35 Oxygen Per Protocol ordered. nahed jg9 14:19 09:10 nahed aa5 14:20 14:19 418 aa5 eb
[2022-04-10] MEDS ORDERED: BEBTELOVIMAB 175 MG/2 ML VIAL IV ONE (09:20)
[2022-04-10 09:54] LABS: Albumin 3.3 g/dL (3.4-5.0); Bilirubin Direct 0.8 mg/dL (0-0.2); Bilirubin Total 1.8 mg/dL (0.2-1.0); Protein, Total 7.6 g/dL (6.4-8.2)
[2022-04-10 09:57] LABS: Potassium 4.7 mmol/L (3.5-5.1)
[2022-04-10 09:58] LABS: Troponin High Sensitivity 140.7 pg/mL (<58.9)
--- NOTE | 2022-04-10 10:16 | P.CNS ---
Date of Consult: 04/10/22 Reason for Consult: ESRD Requesting Physician: Dipesh Leiva Chief Complaint: AMS, generalized weakness, SOB History of Present Illness: 66M w/ PMHx of ESRD on HD MWF, Htn, HLD, CHF, severe pulmo Htn, CAD, anemia, renal osteodystrophy, & DM2 who p/w AMS, SOB, & generalized weakness. He was receiving HD at [facility] this AM when he was noted to be less responsive. HD tx was d/c'ed after 1 hr & he was transported to the hospital. He was found to have sepsis likely 2/2 covid infection. He was scheduled to receive HD today but pt requested to be rescheduled tomorrow for HD. Allergies ciprofloxacin Allergy (Severe, Verified 03/22/20 05:24) Hives/Rash erythromycin base Allergy (Intermediate, Verified 03/22/20 05:24) GI upset/burning Home Medications: Atorvastatin Calcium 40 mg PO BEDTIME 06/30/19 Pantoprazole [Protonix Tab*] 40 mg PO BIDAC #60 tab 05/15/20 Furosemide [Lasix] 80 mg PO Q12H 08/18/21 Insulin Detemir [Levemir] 27 units SQ BEDTIME 08/18/21 Sitagliptin Phosphate [Januvia*] 25 mg PO BEDTIME 08/18/21 Apixaban [Eliquis *] 5 mg PO DAILY 11/07/21 Calcium Carbonate [Tums Regular*] 500 mg PO AC #30 tab 11/10/21 Midodrine HCl [Proamatine*] 10 mg PO TID #90 tab 11/10/21 Thiamine HCl [Vitamin B-1*] 100 mg PO DAILY #30 tablet 11/10/21 - Past Medical/Surgical History Diabetic: Yes -: Hypertension -: Diabetes mellitus type 2, insulin-dependent -: CAD with pacemaker -: Hyperlipidemia -: Diabetic neuropathy -: Chronic systolic/diastolic congestive heart failure -: ESRD on HD MWF -: Pacemaker placement -: Cholecystectomy -: shunt right upper arm Psychosocial/ Personal History: Patient is - Family History Father Medical History: Heart disease Mother Medical History: Diabetes - Social History Smoking Status: Unknown if ever smoked Alcohol use: No CD- Drugs: No Caffeine use: Yes Review of Systems is unable to be obtained (d/t AMS) Physical Examination General: Other (Chronically ill appearing) HEENT: Atraumatic, Normocephalic Neck: Supple Respiratory: Other (symmetric chest expansion) Cardiovascular: No rubs, No murmurs Gastrointestinal: Soft and benign, No guarding Musculoskeletal: No clubbing Integumentary: No warmth Neurological: Other (+lethargy) Urinary: Other (No bladder distention) Rectal: Deferred Other Physical/Emotional Findings: Psyche: unable to eval accurately at this time Laboratory Data (last 24 hrs) 04/10/22 09:05: Sodium 136, Potassium 4.7, BUN 86 H, Creatinine 7.39 H*, Glucose 137 H, Magnesium 3.0 H D, Total Bilirubin 1.8 H, AST 18, ALT 33, Alkaline Phosphatase 135 H 04/10/22 07:45: WBC 19.50 H, Hgb 14.3, Hct 44.1, Plt Count 102 L Conclusions/Impression: # ESRD on outpt HD qMWF at [facility] Next HD tomorrow then qMWF next week EDW 100 kgs HD access RA AVF Monitor renal panel # Sepsis likely 2/2 covid infxn Per primary team # Acute respi failure 2/2 acute on chronic systolic/diastolic HF +/- covid pna Hx of severe pulmo Htn Per other services HD as above # Htn BP at goal, not on BP meds, monitor # Anemia H/H above goal Hold epo # Renal osteodystrophy Monitor Ca & Phos # DM2 Mnngt per primary team # Hx of R MCA CVA PT/OT
--- NOTE | 2022-04-10 10:34 | P.HP ---
Certification for Inpatient Patient admitted to: Inpatient With expected LOS: >2 Midnights Patient will require the following post-hospital care: None Practitioner: I am a practitioner with admitting privileges, knowledge of patient current condition, hospital course, and medical plan of care. Services: Services provided to patient in accordance with Admission requirements found in Title 42 Section 412.3 of the Code of Federal Regulations Patient History Date of Service: 04/10/22 Reason for admission: Acute Hypoxic Respiratory Failure History of Present Illness: Mr. Jarod Kraft is a pleasant 66 year old male who has a past medical history of end-stage renal disease on MWF iHD, chronic combined systolic congestive heart failure, severe pulmonary hypertension, coronary artery disease, type II diabetes mellitus complicated by diabetic neuropathy, hypertension, and hyperlipidemia who presents to the [facility] Emergency Department for shortness of breath and generalized weakness. He reports that, over the last day, he has been experiencing generalized weakness and progressively worsening shortness of breath. He states that he was on hemodialysis today at his outpatient dialysis center before he felt generalized malaise and weakness, and was unable to complete the session. He states that he completed about 1 hour of dialysis prior to being transported here. He denies any obvious inciting or alleviating factors. He denies any sick contacts or recent travel. He states that he has received 3 doses of the COVID- 19 vaccine (both [employer] and [employer]), with his last dose being about 7 months ago. On review of systems, he denies any fevers, chills, headaches, dizziness, syncope, chest pain, palpitations, wheezing, cough, abdominal pain, nausea/vomiting, diarrhea, constipation, hematochezia, melena, dysuria, hematuria, myalgia, or any other symptoms. He presented to the Emergency Department for further evaluation. Upon presentation, his vital signs were notable for a heart rate of 101 bpm. His laboratory studies were notable for a WBC count of 19,500, a platelet of 102,000, a NT-Pro BNP of 119,495, a troponin of 140.7. Blood cultures x 2 were obtained. EKG revealed a paced-rhythm. Chest x-ray revealed, "no acute cardiopulmonary disease." CT head revealed, "no definite acute intracranial abnormality. A remote moderate-sized right frontal lobe infarct is noted. No acute large vascular territory infarct is identified. MRI could better assess if there is high clinical concern for a small superimposed acute infarct." Nephrology was consulted in the Emergency Department, and recommendations are pending. In the Emergency Department, he was given ceftriaxone and bebtelovimab. He was admitted to the General Internal Medicine service for further evaluation. Allergies ciprofloxacin Allergy (Severe, Verified 03/22/20 05:24) Hives/Rash erythromycin base Allergy (Intermediate, Verified 03/22/20 05:24) GI upset/burning Home Medications: Atorvastatin Calcium 40 mg PO BEDTIME 06/30/19 Pantoprazole [Protonix Tab*] 40 mg PO BIDAC #60 tab 05/15/20 Furosemide [Lasix] 80 mg PO Q12H 08/18/21 Insulin Detemir [Levemir] 27 units SQ BEDTIME 08/18/21 Sitagliptin Phosphate [Januvia*] 25 mg PO BEDTIME 08/18/21 Apixaban [Eliquis *] 5 mg PO DAILY 11/07/21 Calcium Carbonate [Tums Regular*] 500 mg PO AC #30 tab 11/10/21 Midodrine HCl [Proamatine*] 10 mg PO TID #90 tab 11/10/21 Thiamine HCl [Vitamin B-1*] 100 mg PO DAILY #30 tablet 11/10/21 - Past Medical/Surgical History Diabetic: Yes -: Hypertension -: Diabetes mellitus type 2, insulin-dependent -: CAD with pacemaker -: Hyperlipidemia -: Diabetic neuropathy -: Chronic systolic/diastolic congestive heart failure -: ESRD on HD MWF -: Pacemaker placement -: Cholecystectomy -: shunt right upper arm Psychosocial/ Personal History: Patient is - Family History Father -: Heart disease Mother -: Diabetes - Social History Alcohol use: No CD- Drugs: No Caffeine use: Yes Review of Systems General: Weakness, Unremarkable Eyes: Unremarkable ENT: Unremarkable Respiratory: Shortness of Breath Cardiovascular: Unremarkable Gastrointestinal: Unremarkable Genitourinary: Unremarkable Musculoskeletal: Unremarkable Integumentary: Unremarkable Neurological: Unremarkable Physical Examination - Vital Signs Temperature: 99.2 F Blood Pressure: 114/79 Pulse: 101 Respirations: 19 Pulse Ox (%): 97 - Physical Exam General: Alert, In no apparent distress, Oriented x3 HEENT: Atraumatic, PERRLA, Mucous membr. moist/pink, EOMI, Sclerae nonicteric Neck: Supple, JVD distended Respiratory: Diminished, Crackles/rales (bibasilar) Cardiovascular: Normal pulses, Regular rate/rhythm, Normal S1 S2, No gallops, No rubs, No murmurs, Edema (1-2+ bilateral pitting) Gastrointestinal: Normal bowel sounds, Soft and benign, Non-distended, No tenderness, No rebound, No guarding Musculoskeletal: No clubbing Integumentary: No rashes Neurological: Normal speech, Normal strength at 5/5 x4 extr, Sensation intact, Cranial nerves 3-12 intact, Normal affect - Studies Laboratory Data (last 24 hrs) 04/10/22 09:05: Sodium 136, Potassium 4.7, BUN 86 H, Creatinine 7.39 H*, Glucose 137 H, Magnesium 3.0 H D, Total Bilirubin 1.8 H, AST 18, ALT 33, Alkaline Phosphatase 135 H 04/10/22 07:45: WBC 19.50 H, Hgb 14.3, Hct 44.1, Plt Count 102 L Microbiology Data (last 24 hrs): 04/10/22 07:45 Nasopharnyx Influenza Type A Antigen Screen - Final 04/10/22 07:45 Nasopharnyx Influenza Type B Antigen Screen - Final Assessment and Plan - Plan # Acute Hypoxic Respiratory Failure - likely secondary to Acute on Chronic Combined Systolic and Diastolic Heart Failure (LVEF 40-45 %) # End-Stage Renal Disease on MWF iHD # Severe Pulmonary Hypertension During my evaluation, his SPO2 readings dropped to the mid 80s on 2 L nasal cannula. I increase the oxygen to 6 L nasal cannula, with improvement of his pulse oximetry readings to the low 90s. - Evaluation thus far: - D-Dimer = pending - If positive, plan to obtain a CT chest angiogram (contrast timed with dialysis) - Procalcitonin = pending - ABG = pending - Chest x-ray = "no acute cardiopulmonary disease." - NT Pro BNP = 119,495 - Management plan: - Consulted Cardiology - recommendations appreciated - Consulted Pulmonary Medicine - recommendations appreciated - Anuric - Nephrology consulted for diuresis - recommendations appreciated - Consulted Respiratory Therapy - Supplemental oxygen to maintain SpO2 > 92% - S/P bebtelovimub in ED - Starteed dexamethasone - PRN benzonatate, guaifenesin - Encouraged incentive spirometry # Viral Sepsis likely secondary to COVID-19 He meets SIRS criteria based on HR > 90 bpm, RR > 20 breaths/min, WBC > 12,000 and the suspected source is COVID-19. Severe sepsis is suspected due to concern for tissue hypoperfusion/organ dysfunction based on lactic acid > 2 mmol/L. - Sepsis order set was initiated - Initial Lactate was 3.4, trend - Blood cultures drawn - Broad spectrum antibiotics started: Ceftriaxone - In regards to fluids: - 30 mL/kg of IV fluids was not administered given lactic acid < 4 and concern for volume overload in renal and heart failure # Elevated Troponin in Coronary Artery Disease # History of Remote Right MCA Cerebrovascular Accident # Hypertension # Hyperlipidemia - Consulted Cardiology - recommendations appreciated - EKG = no STEMI criteria - Troponin 140.7 -> 161.9 - Ordered TTE - Started aspirin + atorvastatin - It seems that he is on apixaban at home - will switch to enoxaparin while hospitalized to cover possible type II NSTEMI (demand ischemia) - Resume home medications once verified # Type II Diabetes Mellitus by Diabetic Neuropathy - Hgb A1c pending - Correction scale insulin ordered Dipesh Leiva M.D. Discharge Plan: Home Plan to discharge in: Greater than 2 days - Advance Directives Does patient have a Living Will: No Does patient have a Durable POA for Healthcare: No - Code Status/Comfort Care Code Status Assessed: Yes Code Status: Full Code
[2022-04-10] MEDS ORDERED: dexAMETHasone 10 MG/ML VIAL IV ONE (10:38)
[2022-04-10] MEDS ORDERED: dexAMETHasone 10 MG/ML VIAL ONE (11:54)
[2022-04-10 12:24] VITALS: BMI 35.2
[2022-04-10 12:39] LABS: Troponin High Sensitivity 161.9 pg/mL (<58.9)
[2022-04-10] MEDS ORDERED: GLUCAGON 1 MG/VIAL IM PRN (14:41)
[2022-04-10] MEDS ORDERED: D50W 25 GM/50 ML SYRINGE IV PRN (14:41)
[2022-04-10] MEDS ORDERED: D10W 250 ML BAG IV PRN (14:50)
[2022-04-10 16:13] LABS: Arterial Blood Carboxyhemoglob 1.4 % (0-1.5); Blood Gas Oxyhemoglobin 67.3 % (94-97); Blood O2 Saturation 69.1 % (92-98.5)
[2022-04-10] MEDS: INSULIN -REGULAR HUMAN 50 UNIT/0.5 ML ML SQ SCH ×2 (16:30→20:45)
[2022-04-10] MEDS: ENOXAPARIN 100 MG/ML SYR SQ SCH (16:45)
[2022-04-10 17:11] LABS: Protime INR 1.87
[2022-04-10] MEDS: ATORVASTATIN 40 MG TAB PO SCH (20:45)
--- NOTE | 2022-04-10 22:07 | RAD REPORT ---
EXAM DESCRIPTION: CT - Chest For Pe Angio - 04/10/2022 9:48 pm CLINICAL HISTORY: Chest pain/ elevated D-dimer COMPARISON: 2019 TECHNIQUE: Dynamically enhanced axial 3 mm thick images of the chest were obtained during administra tion of <100> mL Isovue 370 IV contrast. Coronal and oblique reconstruction images were generated and reviewed. Exam utilizes a protocol for optimal evaluation of pulmonary arterial tree. Maximum intensity projections 3D imaging was utilized All CT scans are performed using dose optimization technique as appropriate and may include automated exposure control or mA/KV adjustment according to patient size. FINDINGS: A pulmonary embolus is not seen. A thoracic aortic aneurysm is not noted. 9 x 3 centimeter left pleural opacity within the lower lateral left hemithorax likely represents truong gn pleural thickening. A pericardial effusion is not seen. Marked cardiomegaly. Distention of the IVC and hepatic veins compatible with right heart failure. A lung consolidation is not present. IMPRESSION: Negative for a pulmonary embolism.
--- NOTE | 2022-04-10 22:25 | P.PN ---
Date of Service: 04/10/22 Pt now meets criteria for severe sepsis (bacterial) given recent + blood cultures at 2200. Blood cultures, repeat lactate ordered, broad spectrum abx with vanc/cefemime, NO Iv fluid bolus given lactate <4, BP >90 systolic, and concern for volume overload.
[2022-04-10] MEDS ORDERED: VANCOMYCIN 2.5 GM in NA CHLORIDE 0.9% 500 ML IVPB ONE (23:00)
[2022-04-10] MEDS ORDERED: VANCOMYCIN 1 GM/VIAL ONE (23:21)
[2022-04-10] MEDS ORDERED: VANCOMYCIN 500 MG/VIAL ONE (23:22)
[2022-04-10] MEDS ORDERED: NA CHLORIDE 0.9% 500 ML ONE (23:23)
[2022-04-11 02:00] LABS: Absolute Lymphocytes (CBC) 0.6 K/uL (0.7-4.9); Lymphocytes % 6.4 % (15.3-44.8); MCV 102.7 fL (80-100); MPV 8.2 fL (7.6-11.3); RBC Red Blood Cell Count 3.99 M/uL (4.33-5.43)
[2022-04-11 02:04] LABS: Protime INR 1.88
[2022-04-11] MEDS: CEFEPIME 1 GM in NA CHLORIDE 0.9% 100 ML IV SCH (02:18)
[2022-04-11 02:21] LABS: Albumin 2.9 g/dL (3.4-5.0); Bilirubin Total 1.2 mg/dL (0.2-1.0); Magnesium 2.9 mg/dL (1.8-2.4); Phosphorus 7.1 mg/dL (2.5-4.9); Protein, Total 6.7 g/dL (6.4-8.2)
[2022-04-11 02:22] LABS: Troponin High Sensitivity 590.6 pg/mL (<58.9)
[2022-04-11] MEDS: INSULIN -REGULAR HUMAN 50 UNIT/0.5 ML ML SQ SCH ×4 (07:30→20:41)
[2022-04-11] MEDS: ASPIRIN 81 MG CHEWABLE TABLET PO SCH (07:35)
[2022-04-11] MEDS ORDERED: dexAMETHasone 4 MG TAB PO SCH (09:00)
[2022-04-11] MEDS: ENOXAPARIN 100 MG/ML SYR SQ SCH (15:00)
--- NOTE | 2022-04-11 15:53 | P.CNS ---
Date of Consult: 04/11/22 Chief Complaint: AMS, generalized weakness, SOB History of Present Illness: Patient is 66 years of age end-stage renal disease anabolic syndrome admitted with shortness of breath generalized weakness tested positive for coronavirus he is doing well he denies any prior pulmonary complaints does not smoke oxygenation satisfactory Allergies ciprofloxacin Allergy (Severe, Verified 03/22/20 05:24) Hives/Rash erythromycin base Allergy (Intermediate, Verified 03/22/20 05:24) GI upset/burning Home Medications: Atorvastatin Calcium 40 mg PO BEDTIME 06/30/19 Pantoprazole [Protonix Tab*] 40 mg PO BIDAC #60 tab 05/15/20 Furosemide [Lasix] 80 mg PO Q12H 08/18/21 Insulin Detemir [Levemir] 27 units SQ BEDTIME 08/18/21 Sitagliptin Phosphate [Januvia*] 25 mg PO BEDTIME 08/18/21 Apixaban [Eliquis *] 5 mg PO DAILY 11/07/21 Calcium Carbonate [Tums Regular*] 500 mg PO AC #30 tab 11/10/21 Midodrine HCl [Proamatine*] 10 mg PO TID #90 tab 11/10/21 Thiamine HCl [Vitamin B-1*] 100 mg PO DAILY #30 tablet 11/10/21 - Past Medical/Surgical History Diabetic: Yes -: Hypertension -: Diabetes mellitus type 2, insulin-dependent -: CAD with pacemaker -: Hyperlipidemia -: Diabetic neuropathy -: Chronic systolic/diastolic congestive heart failure -: ESRD on HD MWF -: Pacemaker placement -: Cholecystectomy -: shunt right upper arm Psychosocial/ Personal History: Patient is - Family History Father Medical History: Heart disease Mother Medical History: Diabetes - Social History Smoking Status: Unknown if ever smoked Alcohol use: No CD- Drugs: No Caffeine use: Yes Place of Residence: Home Review of Systems 10-point ROS is otherwise unremarkable Physical Examination Temp Pulse Resp BP Pulse Ox 96.9 F 83 18 126/96 H 99 04/11/22 12:00 04/11/22 12:00 04/11/22 12:00 04/11/22 12:00 04/11/22 12:00 General: Alert, In no apparent distress, Oriented x3 Respiratory: Normal air movement, Friction rub Cardiovascular: Regular rate/rhythm, Normal S1 S2 - Problems (1) SARS-CoV-2 positive Current Visit: Yes Status: Acute Plan: Patient is 66 years of age admitted with weakness highly doubt that he has coronavirus pneumonia CT scan chest x-ray reviewed CT scan shows old left lower lobe pleural thickening White count was elevated now normal vital signs oxygenation satisfactory 90% on 2 L we will check on room air he may have had venous blood gases patient is on broad-spectrum antibiotics will await final cultures DC Decadron admitted for possible sepsis patient is afebrile
--- NOTE | 2022-04-11 18:13 | P.PN ---
Subjective Date of Service: 04/11/22 Chief Complaint: AMS, generalized weakness, SOB He reports that he feels his breathing has improved, but he is still experiencing chills. 3/4 blood cultures have returned positive for gram-positive cocci in pairs and chains. He was started on antibiotics overnight. Review of Systems 10-point ROS is otherwise unremarkable General: Chills, Sweats Respiratory: Shortness of Breath Physical Examination - Vital Signs Temperature: 97 F Blood Pressure: 149/101 Pulse: 79 Respirations: 18 Pulse Ox (%): 100 - Physical Exam Other Physical/Emotional Findings: Psyche: unable to eval accurately at this time Assessment And Plan - Plan - Physical Exam General: Alert, In no apparent distress, Oriented x3 HEENT: Atraumatic, PERRLA, Mucous membr. moist/pink, EOMI, Sclerae nonicteric Neck: Supple, JVD distended Respiratory: Diminished, Crackles/rales (bibasilar) Cardiovascular: Normal pulses, Regular rate/rhythm, Normal S1 S2, No gallops, No rubs, No murmurs, Edema (1-2+ bilateral pitting) Gastrointestinal: Normal bowel sounds, Soft and benign, Non-distended, No tenderness, No rebound, No guarding Musculoskeletal: No clubbing Integumentary: No rashes Neurological: Normal speech, Normal strength at 5/5 x4 extr, Sensation intact, Cranial nerves 3-12 intact, Normal affect # Acute Hypoxic Respiratory Failure - likely secondary to Acute on Chronic Combined Systolic and Diastolic Heart Failure (LVEF 40-45 %) # End-Stage Renal Disease on MWF iHD # Severe Pulmonary Hypertension During my initial evaluation, his SPO2 readings dropped to the mid 80s on 2 L nasal cannula. He is now on 2 L nasal cannula, with improvement of his pulse oximetry readings to 100 %. - Evaluation thus far: - D-Dimer = 6,117 - CT chest angiogram = "Negative for a pulmonary embolism." - Procalcitonin = 1.30 - ABG = pH 7.32, PCO2 32.3, PO2 46.4 - Chest x-ray = "no acute cardiopulmonary disease." - NT Pro BNP = 119,495 - Management plan: - Consulted Cardiology - recommendations appreciated - Consulted Pulmonary Medicine - recommendations appreciated - Anuric - Nephrology consulted for diuresis - recommendations appreciated - Consulted Respiratory Therapy - Supplemental oxygen to maintain SpO2 > 92% - S/P bebtelovimub in ED - Started dexamethasone - PRN benzonatate, guaifenesin - Encouraged incentive spirometry # Severe Sepsis likely secondary to Gram- Positive Cocci in Pairs and Chains # Possible Co-existing Viral Sepsis likely secondary to COVID-19 He meets SIRS criteria based on HR > 90 bpm, RR > 20 breaths/min, WBC > 12,000 and the suspected source is COVID-19. Severe sepsis is suspected due to concern for tissue hypoperfusion/organ dysfunction based on lactic acid > 2 mmol/L. - Sepsis order set was initiated - Initial Lactate was 3.4 -> 3.3 -> 2.5 -> 2.4 -> 2.0 - Blood cultures drawn = 3 positive for G+ in pairs and chains - Broad spectrum antibiotics started: Vancomycin + Cefepime - In regards to fluids: - 30 mL/kg of IV fluids was not administered given lactic acid < 4 and concern for volume overload in renal and heart failure # Elevated Troponin in Coronary Artery Disease # History of Remote Right MCA Cerebrovascular Accident # Hypertension # Hyperlipidemia - Consulted Cardiology - recommendations appreciated - EKG = no STEMI criteria - Troponin 140.7 -> 161.9 -> 524.7 -> 590.6, trend - Ordered TTE - Started aspirin + atorvastatin - It seems that he is on apixaban at home - will switch to enoxaparin while hospitalized to cover possible type II NSTEMI (demand ischemia) - Resume home medications once verified # Type II Diabetes Mellitus by Diabetic Neuropathy - Hgb A1c 5.8 % - Correction scale insulin ordered Dipesh Leiva M.D.
[2022-04-11] MEDS: ATORVASTATIN 40 MG TAB PO SCH (20:41)
[2022-04-11] MEDS: SODIUM BICARB 325 MG TAB PO SCH (22:16)
--- NOTE | 2022-04-11 22:45 | P.CNS ---
Date of Consult: 04/11/22 Dr. Corbin contacted regarding increasing trend of troponin levels. Discussed level of 590.6 at 0146 this am and christine's 1830 level is 609.7. Pt continues on Lovenox. No further recommendations per Dr. Corbin.
--- NOTE | 2022-04-12 00:42 | PN ---
Date of Progress Note: 04/11/2022 Chief Complaint: End-stage renal disease, on hemodialysis. Subjective: The patient has multiple medical problems including history of hypertension, hyperlipide barrie, congestive heart failure, chronic severe pulmonary hypertension, coronary artery disease. He pr esented to the hospital because of altered mental status, shortness of breath, generalized weakness. He received dialysis at [facility] yesterday in a.m., although he was noted to be less resp onsive and lethargic. Dialysis was terminated after 1 hour treatment and the patient was transported to the hospital. The patient was found to have sepsis secondary to COVID infection. Today, dialysi s attempted although the patient was found to have clotted dialysis shunt. Review of Systems: Denies fever, chills. Objective: General: Normal respiratory effort. Heart: S1, S2. Abdomen: Soft, benign. Extremities: Slight edema. Impression And Plan: 1.End-stage renal disease. Surgical team is consulted for catheter placement. AV fistula is malfun ctioning and is clotted. Dialysis was attempted although dialysis access is not available. 2.Acute respiratory failure secondary to COVID pneumonia and systolic and diastolic congestive heart failure. Continue p.o. fluid restriction and plan is to resume dialysis as soon as the patient has functioning access. 3.Hypertension. Continue blood pressure medication. 4.Anemia. Continue JOSE according to hemoglobin level. 5.Renal osteodystrophy, monitor phosphorus and calcium. 6.Diabetes mellitus. Continue insulin. EB/MODL Voice ID: [id number] Report ID: [id number]
[2022-04-12 03:53] LABS: Absolute Lymphocytes (CBC) 0.4 K/uL (0.7-4.9); Hematocrit 41.1 % (39.6-49.0); Lymphocytes % 3.8 % (15.3-44.8); MCV 100.4 fL (80-100); MPV 8.5 fL (7.6-11.3)
[2022-04-12 04:14] LABS: Albumin 2.9 g/dL (3.4-5.0); Bilirubin Total 0.9 mg/dL (0.2-1.0); Potassium 5.1 mmol/L (3.5-5.1); Protein, Total 6.8 g/dL (6.4-8.2)
[2022-04-12] MEDS: INSULIN -REGULAR HUMAN 50 UNIT/0.5 ML ML SQ SCH ×4 (07:30→22:02)
[2022-04-12] MEDS: SODIUM BICARB 325 MG TAB PO SCH ×2 (08:11→22:02)
[2022-04-12] MEDS: ASPIRIN 81 MG CHEWABLE TABLET PO SCH (08:11)
[2022-04-12] MEDS ORDERED: propofoL 200 MG/20 ML VIAL IV ONE (09:13)
[2022-04-12] MEDS ORDERED: FENTANYL CITR 100 MCG/2 ML ONE (09:13)
[2022-04-12] MEDS ORDERED: MIDAZOLAM HCL 2 MG/2 ML INJ ONE (09:13)
[2022-04-12] MEDS ORDERED: LIDOCAINE 1% MPF 5 ML VIAL ONE (09:13)
[2022-04-12] MEDS ORDERED: dexAMETHasone 10 MG/ML VIAL ONE (09:14)
[2022-04-12] MEDS ORDERED: NS 0.9% VIAL 10 ML ONE (09:19)
[2022-04-12] MEDS ORDERED: LIDOCAINE 1% MPF 30 ML VIAL ONE (09:20)
[2022-04-12] MEDS ORDERED: NA CHLORIDE 0.9% 100 ML ONE (09:20)
[2022-04-12] MEDS ORDERED: FUROSEMIDE 40 MG/4 ML VIAL IV ONE (09:23)
[2022-04-12] MEDS ORDERED: NA CHLORIDE 0.9% 500 ML ONE (09:29)
[2022-04-12] MEDS ORDERED: CEFAZOLIN SODIUM 1 GM/VIAL ONE (09:29)
--- NOTE | 2022-04-12 09:32 | P.CNS ---
Date of Consult: 04/12/22 Reason for consult: Patient needs tunneled dialysis catheter History of present illness: Patient is a 66-year-old gentleman with multiple medical problems including end-stage renal disease who has a fistula in his right arm. The fistula is not working well. Patient is unable to get adequate dialysis via the fistula at this time. Therefore, I was consulted to put in a tunneled dialysis catheter. Patient was admitted with respiratory issues related to COVID pneumonia. Patient denies any fever or chills at this time. Review of systems: Otherwise unremarkable Past medical history: Hypertension, diabetes, coronary artery disease, hyperlipidemia Past surgical history: Pacemaker, cholecystectomy, right arm fistula Allergies: Cipro and erythromycin Social history: Patient does not smoke or drink alcohol Family history: Diabetes Vital signs: Stable, afebrile Physical exam: Awake alert oriented x3 Head and neck exam: Cranial nerves II through XII grossly within normal limits, no neck masses, no JVD, throat clear and neck is supple Chest: Clear Heart: S1-S2 Abdomen: Soft Extremity: Neurovascular intact, nontender Neuro: Nonfocal Diagnostic data: Reviewed Assessment: End-stage renal disease with malfunctioning right arm AV fistula Plan/recommendation: We will place a tunneled dialysis catheter. Patient unders tands risk, benefits and alternatives agrees to procedure. CC:
[2022-04-12] MEDS: HEPARIN 5000 UNIT/ML 1 ML VIAL ONE ×2 (10:03→10:05)
--- NOTE | 2022-04-12 10:37 | PN ---
Date of Progress Note: 04/12/2022 Mr. Chele Kraft came in with multiple problems including COVID positive, moderate [id number] e pulmonary hypertension, mild systolic congestive heart failure, end-stage renal disease, pacemaker, paroxysmal atrial fibrillation, hypertension, dyslipidemia, and diabetes. He came in with hypoxia, elevated white count secondary to COVID, elevated troponin, BNP, and D-dimer secondary to renal failu re. Remained on aspirin, insulin, Lovenox, Lipitor, antibiotics and steroids. He follows up with Dr Svetlana Agosto. His AV fistula is malfunctioning and clotted. There is a consultation for catheter place ment for dialysis. P.o. fluid restriction is continued. Dialysis will be started as soon as the cat heter that is functioning. Follow the blood pressure, anemia, and diabetes. We will continue presen t regimen. Cardiac garrison, echocardiogram is pending tomorrow. We will continue to follow. No change in therapy otherwise. SHA/SADIE Voice ID: [id number] Report ID: [id number]
[2022-04-12] MEDS ORDERED: CODEINE 30MG/APAP 300MG TAB PO PRN (10:38)
--- NOTE | 2022-04-12 10:41 | P.OP ---
Date of Service: 04/12/22 Preop diagnosis: End-stage renal disease, malfunctioning of right arm AV fistula Postop diagnosis: Same Procedure performed: Attempted right IJ and right subclavian Tesio catheter placement, placement of right femoral Vipul catheter, interpretation of intraoperative fluoroscopy Surgeon: Charli Dueñas MD Salesperson Meats: None Estimated blood loss: Minimal Specimen: None Findings: I was able to access both the right internal jugular vein and the right subclavian vein however the guidewire would not go to the right side of the heart into the superior vena cava Anesthesia: MAC Complications: None Drains: None Fluids and blood products: Nonapplicable Disposition: Recovery room Operative note: Patient brought to the OR and placed in the supine position. MAC anesthesia begun. Patient prepped and draped in the usual sterile fashion. Then, lidocaine 1% infiltrated in the right IJ and right subclavian region. 18- gauge needle used to access both veins. Guidewire passed. Unable to get the guidewire into the superior vena cava due to anatomical difficulties. Patient has a pacemaker on the left side. Patient's had multiple attempts and placement of right-sided catheters in the past. So, at this time decision was made to abort the right neck and chest region and the right groin was prepped and draped in usual sterile fashion. Lidocaine 1% was infiltrated locally. Then an 18- gauge needle was used to access the right common femoral vein. Guidewire passed and position confirmed with fluoroscopy. Then Seldinger technique used. Vein dilated. Vipul catheter placed and secured with 3-0 nylon. Catheter had good blood flow and it was packed with heparin. Sterile dressing applied. Patient taken to recovery room in good general condition. Chest x-ray has been ordered. CC:
--- NOTE | 2022-04-12 11:25 | RAD REPORT ---
EXAM DESCRIPTION: RAD - Fluoroscopy <1 Hour - 04/12/2022 11:16 am FINDINGS: There were 4 portable C-arm views submitted from fluoroscopic placement of vascular access catheter. The initial 2 images were obtained of the chest during subclavian and/ or IJ placement att empt. A second 2 images were obtained during right femoral vein access. Fluoro time was 1.0 minutes. Cumulative dose was 13.4 mGy.
--- NOTE | 2022-04-12 11:27 | RAD REPORT ---
EXAM DESCRIPTION: RAD - Chest Single View - 04/12/2022 11:04 am CLINICAL HISTORY: Attempted right IJ and right subclavian Tesio cath COMPARISON: Portable April 10 TECHNIQUE: AP portable chest image was obtained 04/12/2022 11:04 am in inspiration and expiration. FINDINGS: Two views of the chest were obtained following unsuccessful placement of Tessio catheter v ia subclavian an IJ approaches. No pneumothorax is present. No pulmonary contusion or acute lung parenchymal process. Left-sided pace maker/ defibrillator is in place. No suspicious or unexpected findings. Cardiomediastinal silhouette is stable. IMPRESSION: No pneumothorax or other emergent finding.
--- NOTE | 2022-04-12 11:49 | CON ---
Date of Consultation: 04/11/[address] Leiva on 04/10/2022. Reason For Consultation: Hypoxia, weakness, and fever. History Of Present Illness: The patient is a 66-year-old. He has a history of end-stage renal disea se, on hemodialysis. Has a history of pacemaker, hypertension, and dyslipidemia. Normally followed up by Dr. Agosto. He has a history of paroxysmal atrial fibrillation, for which he takes Eliquis. He also has a history of diabetes as well as orthostatic hypotension. He comes in with hypoxia, feve r, and weakness. Denied any chest pain. Denied any nausea or vomiting or diaphoresis. Denied PND, orthopnea, pedal edema, palpitation, or syncope. Allergies: TO ERYTHROMYCIN AND CIPROFLOXACIN. Medications: At home include: 1.Eliquis. 2.Lipitor. 3.Lasix. 4.Insulin. 5.Midodrine. 6.Januvia. Review of Systems: Negative. Social History: Negative. Family History: Negative. Physical Examination: Vital Signs: Stable, afebrile. HEENT: Negative. Neck: Supple with no bruit. Chest: Clear. Cardiac: Revealed a regular rhythm and rate. No murmurs, gallops, or rubs. Abdomen: Benign. Extremities: Revealed no clubbing, cyanosis, or edema. Diagnostic Data: He was COVID positive. CTA was negative. Creatinine is 7.72. White count was 19, 000. D-dimer was 6000. Troponin was 590. His PO2 was 46, pCO2 32, pH of 7.32. His BNP was 119,000 . Impression And Plan: 1.Hypoxia with a PO2 of 46, pCO2 of 32, pH of 7.42, elevated white count probably secondary to COVID . 2.Chronic systolic congestive heart failure. He is with an ejection fraction of 45% with moderate t o severe pulmonary hypertension of 55 mmHg. 3.Renal failure, on hemodialysis. 4.Elevated BNP and D-dimer and troponin, secondary to renal failure and hypoxia versus demand ischem ia, not an acute coronary syndrome. His other problems include: 1.Paroxysmal atrial fibrillation, on Eliquis. 2.Dyslipidemia, on Lipitor. He has a pacemaker and hypertension and diabetes are fairly well controlled. He is now on aspirin, i nsulin, Lipitor, Lovenox, antibiotics, and steroid. I agreed with the present regimen. Nephrology i s following. Echocardiogram is pending. I think he eventually should follow up with Dr. Agosto. H e probably should have at least an outpatient stress test, Lexiscan, and maybe even a catheterization down the road, but I will leave that up to Dr. Agosto. I will continue following him, otherwise. SHA/SADIE Voice ID: [id number] Report ID: [id number]
[2022-04-12] MEDS: CEFEPIME 1 GM in NA CHLORIDE 0.9% 100 ML IV SCH (17:39)
[2022-04-12] MEDS: ENOXAPARIN 100 MG/ML SYR SQ SCH (17:39)
--- NOTE | 2022-04-12 21:06 | P.PN ---
Subjective Date of Service: 04/12/22 Chief Complaint: AMS, generalized weakness, SOB No acute events overnight. He reports that his shortness of breath is relatively unchanged. He has been NPO past midnight for dialysis catheter exchange this morning. Review of Systems 10-point ROS is otherwise unremarkable Respiratory: Shortness of Breath, SOB with Excertion Physical Examination - Vital Signs Temperature: 96.2 F Blood Pressure: 129/87 Pulse: 86 Respirations: 18 Pulse Ox (%): 99 - Physical Exam Other Physical/Emotional Findings: Psyche: unable to eval accurately at this time - Studies Microbiology Data (last 24 hrs): 04/10/22 08:45 Clean Catch Urine [place] Count - Final BETWEEN 10,000 & 100,000 CFU/ML 04/10/22 08:45 Clean Catch Urine - Final MIXED SHADIA. 04/10/22 07:45 Blood - Blood Blood Culture Gram Stain - Final 04/10/22 07:45 Blood - Blood Gram Stain - Final Assessment And Plan - Plan - Physical Exam General: Alert, In no apparent distress, Oriented x3 HEENT: Atraumatic, PERRLA, Mucous membr. moist/pink, EOMI, Sclerae nonicteric Neck: Supple, JVD distended Respiratory: Diminished, Crackles/rales (bibasilar) Cardiovascular: Normal pulses, Regular rate/rhythm, Normal S1 S2, No gallops, No rubs, No murmurs, Edema (1-2+ bilateral pitting) Gastrointestinal: Normal bowel sounds, Soft and benign, Non-distended, No tenderness, No rebound, No guarding Musculoskeletal: No clubbing Integumentary: No rashes Neurological: Normal speech, Normal strength at 5/5 x4 extr, Sensation intact, Cranial nerves 3-12 intact, Normal affect # Acute Hypoxic Respiratory Failure - likely secondary to Acute on Chronic Combined Systolic and Diastolic Heart Failure (LVEF 40-45 %) # End-Stage Renal Disease on MWF iHD # Severe Pulmonary Hypertension During my initial evaluation, his SPO2 readings dropped to the mid 80s on 2 L n osorio cannula. He is now on 2 L nasal cannula, with improvement of his pulse oximetry readings to 100 %. - Evaluation thus far: - D-Dimer = 6,117 - CT chest angiogram = "Negative for a pulmonary embolism." - Procalcitonin = 1.30 - ABG = pH 7.32, PCO2 32.3, PO2 46.4 - Chest x-ray = "no acute cardiopulmonary disease." - NT Pro BNP = 119,495 - Management plan: - Consulted Cardiology - recommendations appreciated - Consulted Pulmonary Medicine - recommendations appreciated - Anuric - Nephrology consulted for diuresis - recommendations appreciated - Consulted Respiratory Therapy - Supplemental oxygen to maintain SpO2 > 92% - S/P bebtelovimub in ED - Started dexamethasone - PRN benzonatate, guaifenesin - Encouraged incentive spirometry - Plan for dialysis catheter exchange this morning # Severe Sepsis likely secondary to Gram- Positive Cocci in Pairs and Chains # Possible Co-existing Viral Sepsis likely secondary to COVID-19 He meets SIRS criteria based on HR > 90 bpm, RR > 20 breaths/min, WBC > 12,000 and the suspected source is COVID-19. Severe sepsis is suspected due to concern for tissue hypoperfusion/organ dysfunction based on lactic acid > 2 mmol/L. - Sepsis order set was initiated - Initial Lactate was 3.4 -> 3.3 -> 2.5 -> 2.4 -> 2.0 - Blood cultures drawn = 3/4 positive for G+ in pairs and chains - Broad spectrum antibiotics started: Vancomycin + Cefepime - In regards to fluids: - 30 mL/kg of IV fluids was not administered given lactic acid < 4 and concern for volume overload in renal and heart failure # Elevated Troponin in Coronary Artery Disease # History of Remote Right MCA Cerebrovascular Accident # Hypertension # Hyperlipidemia - Consulted Cardiology - recommendations appreciated - EKG = no STEMI criteria - Troponin 140.7 -> 161.9 -> 524.7 -> 590.6, trend - Ordered TTE - Started aspirin + atorvastatin - It seems that he is on apixaban at home - will switch to enoxaparin while hospitalized to cover possible type II NSTEMI (demand ischemia) - Resume home medications once verified # Type II Diabetes Mellitus by Diabetic Neuropathy - Hgb A1c 5.8 % - Correction scale insulin ordered Dipesh Leiva M.D.
[2022-04-12] MEDS: ATORVASTATIN 40 MG TAB PO SCH (22:02)
--- NOTE | 2022-04-12 23:43 | PN ---
Date of Progress Note: 04/12/2022 Chief Complaint: End-stage renal disease on dialysis. Subjective: The patient underwent hemodialysis today after a catheter was placed. The patient was t o have tunneled dialysis catheter, although due to technical difficulties, the patient had a temporar y catheter placed in the femoral location. The patient received dialysis today to obtain negative fl uid balance and to control electrolytes. Metabolic acidosis was treated with IV bicarbonate drip. T he patient received IV Lasix. Subsequently, he underwent a catheter placement and dialysis was done today. The patient denies new complaints. Physical Examination: Lungs: Equal chest expansion. Heart: S1, S2. Abdomen: Soft, benign. Extremities: Slight edema present. Impression And Plan: 1.End-stage renal disease. The patient will need a thrombectomy and angioplasty of dialysis access. Currently, the patient is undergoing dialysis via temporary dialysis catheter. Continue to monitor electrolytes. 2.Acute respiratory failure secondary to COVID pneumonia and systolic and diastolic congestive heart failure. Continue p.o. fluid restriction and advance ultrafiltration as tolerated. 3.Hypertension. Continue blood pressure medication. 4.Anemia. Monitor hemoglobin level. Adjust JOSE. 5.Renal osteodystrophy. Monitor phosphorus and calcium. Adjust binders as needed. EB/MODL Voice ID: [id number] Report ID: [id number]
[2022-04-13 04:03] LABS: Absolute Lymphocytes (CBC) 0.3 K/uL (0.7-4.9); Hematocrit 40.4 % (39.6-49.0); Lymphocytes % 3.1 % (15.3-44.8); MCV 100.3 fL (80-100); MPV 8.1 fL (7.6-11.3); RBC Red Blood Cell Count 4.03 M/uL (4.33-5.43)
[2022-04-13 04:52] LABS: Protein, Total 6.9 g/dL (6.4-8.2)
[2022-04-13 05:01] LABS: Anisocytosis 1+; Blood Morphology Comment NOTED (NOT SEEN); Burr Cells 2+; Platelet Estimate ADEQ
[2022-04-13] MEDS: INSULIN -REGULAR HUMAN 50 UNIT/0.5 ML ML SQ SCH ×4 (07:30→23:01)
--- NOTE | 2022-04-13 08:16 | EKG ---
Test Date: 2022-04-10 Test Time: 07:17:49 Farm Service Adviser: RAMBO MEASUREMENT RESULTS: Intervals: Rate: 96 VA: 136 QRSD: 150 QT: 428 QTc: 540 [place]: P: VA: 136 QRS: -68 T: 101 INTERPRETIVE STATEMENTS: Atrial-sensed ventricular-paced rhythm Abnormal ECG Compared to ECG 11/06/2021 17:57:19 AV dual-paced complex(es) or rhythm no longer present Electronically Signed On 04-13-22 08:07:18 CDT by Shreyas Corbin
[2022-04-13] MEDS: ASPIRIN 81 MG CHEWABLE TABLET PO SCH (09:28)
[2022-04-13] MEDS: SODIUM BICARB 325 MG TAB PO SCH ×2 (09:28→22:04)
[2022-04-13] MEDS: ENOXAPARIN 100 MG/ML SYR SQ SCH (15:46)
[2022-04-13] MEDS: CEFEPIME 1 GM in NA CHLORIDE 0.9% 100 ML IV SCH (15:46)
[2022-04-13] MEDS: ATORVASTATIN 40 MG TAB PO SCH (22:04)
--- NOTE | 2022-04-14 00:15 | P.PN ---
Subjective Date of Service: 04/13/22 Subjective: Improving patient's respiratory status has improved. However, dialysis catheter is clotted and we are trying to transfer to [facility] for vascular surgery. Review of Systems 10-point ROS is otherwise unremarkable Physical Examination - Vital Signs Temperature: 96.9 F Blood Pressure: 137/88 Pulse: 84 Respirations: 18 Pulse Ox (%): 99 - Physical Exam General: Alert, In no apparent distress HEENT: Atraumatic, PERRLA, EOMI Neck: Supple, JVD not distended Respiratory: Clear to auscultation bilaterally, Normal air movement Cardiovascular: Regular rate/rhythm, Normal S1 S2 Gastrointestinal: Normal bowel sounds, No tenderness Musculoskeletal: No tenderness Integumentary: No rashes Neurological: Normal speech, Normal tone, Normal affect Lymphatics: No axilla or inguinal lymphadenopathy Other Physical/Emotional Findings: Psyche: unable to eval accurately at this time - Studies Medications List Reviewed: Yes Assessment & Plan - Problems (Diagnosis) (1) Acute respiratory failure with hypoxia Current Visit: No Status: Acute (2) Diabetes Current Visit: No Status: Acute (3) ESRD (end stage renal disease) Current Visit: No Status: Acute (4) Severe pulmonary arterial systolic hypertension Current Visit: No Status: Acute (5) Diabetes type 2, controlled Onset Date: 09/14/16 Current Visit: No Status: Chronic Qualifiers: (6) Essential hypertension Onset Date: 09/14/16 Current Visit: No Status: Chronic (7) History of permanent cardiac pacemaker placement Current Visit: No Status: Chronic (8) Neuropathy Onset Date: 09/14/16 Current Visit: No Status: Chronic - Plan Plan: 1. Continue with hemodialysis per nephrology 2. Arrange for transfer per Nephrology recommendation 3. Monitor electrolytes 4. Out of bed and ambulate 5. If were not able to transfer over the next 48 hours and possible discharge with outpatient follow-up for declotting of AV fistula. Discharge Plan: Transfer - Advance Directives Does patient have a Living Will: No Does patient have a Durable POA for Healthcare: No - Code Status/Comfort Care Code Status: Full Code Critical Care: No Time Spent Managing PTS Care (In Minutes): 35
--- NOTE | 2022-04-14 01:27 | PN ---
Date of Progress Note: 04/13/2022 Chief Complaint: End-stage renal disease, on dialysis. Subjective: The patient was found to have clotted AV access and temporary catheter was placed yesterday to femoral vein, although catheter is malfunctioning. The patient was treated for hyperkalemia with sodium bicarbonate. Metabolic acidosis has improved. Azotemia remains elevated. The patient will have dialysis today. The patient received IV Lasix for volume control as well. Review of Systems: Denies fever or chills. Denies PND or orthopnea. Physical Examination: Lungs: Coarse breath sound bilaterally. Heart: S1, S2. Extremities: Slight edema. Impression And Plan: 1. End-stage renal disease. The patient will be transferred to higher level of care. He needs a thrombectomy and angioplasty of dialysis access. AV access is clotted. Temporary dialysis catheter is malfunctioning. Attempted procedure was done by surgical team, although the tunneled dialysis catheter was not placed due to technical difficulties. 2. Acute respiratory failure secondary to COVID pneumonia, systolic and diastolic congestive heart failure. Continue p.o. fluid restriction. Advance ultrafiltration as tolerated to treat fluid overload. 3. Anemia. Monitor hemoglobin level and adjust JOSE accordingly. 4. Renal osteodystrophy. Monitor phosphorus, calcium. Adjust binders as needed. 5. Hypertension. Continue blood pressure medications. DANIEL/SADIE Voice ID: [id number] Report ID: [id number] MTDD
[2022-04-14 05:49] LABS: Absolute Lymphocytes (CBC) 0.5 K/uL (0.7-4.9); Hematocrit 41.9 % (39.6-49.0); Lymphocytes % 4.2 % (15.3-44.8); MPV 8.3 fL (7.6-11.3); RBC Red Blood Cell Count 4.11 M/uL (4.33-5.43)
[2022-04-14 06:03] LABS: Potassium 4.5 mmol/L (3.5-5.1)
--- NOTE | 2022-04-14 07:27 | PN ---
History: The patient has a history of dialysis, sees Dr. Agosto, comes in with hypoxia, chronic sys tolic congestive heart failure with an ejection fraction of 45%, [id number] pulmonary hyperte nsion, renal failure, elevated BNP, paroxysmal atrial fibrillation on Eliquis, dyslipidemia, history of pacemaker. He needed a new AV fistula. His old AV fistula was clotted. Dr. Dueñas and Dr. Alexander ar e involved in his care from that standpoint. We had ordered an echocardiogram on him, but this was n ot done yet. I personally agree with his present regimen right now. I think he should follow up marty Agosto in the near future. SHA/SADIE Voice ID: [id number] Report ID: [id number]
[2022-04-14] MEDS: SODIUM BICARB 325 MG TAB PO SCH (09:51)
[2022-04-14] MEDS: ASPIRIN 81 MG CHEWABLE TABLET PO SCH (09:51)
[2022-04-14] MEDS: INSULIN -REGULAR HUMAN 50 UNIT/0.5 ML ML SQ SCH ×4 (09:52→21:05)
[2022-04-14] MEDS: CEFTRIAXONE 2,000 MG in NA CHLORIDE 0.9% 100 ML IV SCH (12:44)
[2022-04-14] MEDS ORDERED: VANCOMYCIN 1 GM in NA CHLORIDE 0.9% 250 ML IVPB SCH (14:00)
[2022-04-14] MEDS: ENOXAPARIN 100 MG/ML SYR SQ SCH (14:25)
--- NOTE | 2022-04-14 14:38 | ECHO ---
HEIGHT: 5 ft 6 in WEIGHT: 218 lb 0 oz DATE OF STUDY: 04/14/[address]: Dipesh Leiva MD 2-DIMENSIONAL: YES M.MODE: YES DOPPLER: YES COLOR FLOW: YES TDS: PORTABLE: YES DEFINITY: BUBBLE STUDY: DIAGNOSIS: CHEST PAIN CARDIAC HISTORY: CATHERIZATION: SURGERY: PROSTHETIC VALVE: PACEMAKER: MEASUREMENTS (cm) DIASTOLIC (NORMALS) SYSTOLIC (NORMALS) IVSd 1.2 (0.6-1.2) LA Diam 4.4 (1.9-4.0) LVEF 21% LVIDd 5.2 (3.5-5.7) LVIDs 4.7 (2.0-3.5) %FS 10% LVPWd 1.3 (0.6-1.2) Ao Diam 2.8 (2.0-3.7) 2 DIMENSIONAL ASSESSMENT: RIGHT ATRIUM: NORMAL LEFT ATRIUM: ENLARGED RIGHT VENTRICLE: NORMAL LEFT VENTRICLE: SEVERELY DEPRESSED TRICUSPID VALVE: SEVERE TRICUPSID REGURGITATION MITRAL VALVE: MILD MITRAL REGURGITATION PULMONIC VALVE: MILD PULMONIC INSUFFICIENCY AORTIC VALVE: HEAVILY CALCIFIED PERICARDIAL EFFUSION: NONE AORTIC ROOT: NORMAL LEFT VENTRICULAR WALL MOTION: SEVERE GLOBAL HYPOKINESIS DOPPLER/COLOR FLOW: SEE BELOW COMMENTS: SEVERELY DEPRESSED LEFT VENTRICULAR EJECTION FRACTION 20-25%. SEVERE GLOBAL HYPOKINESIS. HEAVILY CALCIFIED AORTIC VALVE WITH LIKELY SEVERE AORTIC STENOSIS (NEEDS FURTHER EVALUATION OF THE SEVERITY). MILD TO MODERATE MITRAL REGURGITATION. SEVERE TRICUSPID REGURGITAITON. SEVERE PULMONARY HYPERTENSION WITH RIGHT VENTRICULAR SYSTOLIC PRESSURE GREATER THAN 60 mmHg. TECHNOLOGIST: ALIZE BOWMAN
--- NOTE | 2022-04-14 17:23 | PN ---
Date of Progress Note: 04/14/2022 Subjective: The patient was admitted with clotted access, over volume. The patient had a right femoral dialysis catheter, tolerated the dialysis yesterday, but still poor function. The patient has a clotted right-sided AV fistula. Physical Examination: Vital Signs: Blood pressure 132/90, pulse of 92, afebrile. Chest: Crackles bilateral base. Heart: S1, S2. Regular. Abdomen: Soft, nontender. Extremities: No edema. Laboratory Data: WBC 13, H and H 13.2/41.9. Sodium 138, potassium 4.5, bicarb 21, BUN 90, creatinine 6.9, calcium 8.5. Current Medications: The patient on include; 1. Aspirin. 2. Vancomycin. 3. Ceftriaxone. 4. Lovenox. 5. Sodium bicarb. 6. Insulin. Assessment And Plan: 1. End-stage renal disease with over volume, status post dialysis yesterday, currently on room air. We will resume dialysis per schedule. We will arrange for dialysis tomorrow. 2. Clotted AV access. We will plan for declot. The patient waiting for transfer. 3. Hypertension, controlled, optimal. Continue current medication. 4. Over volume, status post challenge. 5. Hyperkalemia, status post dialysis. We will continue to dialyze the patient on low-potassium bath. 6. Anemia of chronic kidney disease. No need for JOSE. Time spent examining the patient [id number], reviewing the data lab and radiology, placing orders, discussing with the patient, explaining risks, benefits, alternatives, discussing with the staff member including nursing discussing with the hospitalist more than 35 minutes. HOMER Voice ID: [id number] Report ID: [id number] NATY
[2022-04-14] MEDS: ATORVASTATIN 40 MG TAB PO SCH (21:05)
--- NOTE | 2022-04-15 00:23 | P.PN ---
Date of Service: 04/14/22 Subjective Patient clinically doing well. Still waiting for transfer. Review of Systems 10-point ROS is otherwise unremarkable Physical Examination - Vital Signs Reviewed - Physical Exam General: Alert, In no apparent distress Respiratory: Clear to auscultation bilaterally, Normal air movement Cardiovascular: Regular rate/rhythm, Normal S1 S2 Gastrointestinal: Normal bowel sounds, No tenderness Neurological: Normal speech, Normal tone, Normal affect Assessment & Plan - Problems (Diagnosis) (1) Acute respiratory failure with hypoxia Current Visit: No Status: Acute (2) Diabetes Current Visit: No Status: Acute (3) ESRD (end stage renal disease) Current Visit: No Status: Acute (4) Severe pulmonary arterial systolic hypertension Current Visit: No Status: Acute (5) Diabetes type 2, controlled Onset Date: 09/14/16 Current Visit: No Status: Chronic Qualifiers: (6) Essential hypertension Onset Date: 09/14/16 Current Visit: No Status: Chronic (7) History of permanent cardiac pacemaker placement Current Visit: No Status: Chronic (8) Neuropathy Onset Date: 09/14/16 Current Visit: No Status: Chronic - Plan continue with plan of care as mentioned below: 1. Continue with hemodialysis per nephrology 2. Arrange for transfer per Nephrology recommendation 3. Monitor electrolytes 4. Out of bed and ambulate 5. If were not able to transfer over the next 48 hours and possible discharge with outpatient follow-up for declotting of AV fistula. Discharge Plan: Transfer - Advance Directives Does patient have a Living Will: No Does patient have a Durable POA for Healthcare: No - Code Status/Comfort Care Code Status: Full Code Critical Care: No Time Spent Managing PTS Care (In Minutes): 35
[2022-04-15 05:16] LABS: Lymphocytes % 9.4 % (15.3-44.8); MPV 8.7 fL (7.6-11.3); RBC Red Blood Cell Count 4.02 M/uL (4.33-5.43)
[2022-04-15 05:53] LABS: Magnesium 2.9 mg/dL (1.8-2.4); Potassium 4.5 mmol/L (3.5-5.1)
[2022-04-15] MEDS: INSULIN -REGULAR HUMAN 50 UNIT/0.5 ML ML SQ SCH ×4 (07:30→21:06)
[2022-04-15] MEDS ORDERED: VANCOMYCIN 1 GM in NA CHLORIDE 0.9% 250 ML IVPB ONE (09:00)
[2022-04-15] MEDS: ASPIRIN 81 MG CHEWABLE TABLET PO SCH (09:36)
--- NOTE | 2022-04-15 12:04 | PN ---
Date of Progress Note: 04/15/2022 Subjective: The patient was admitted with over volume, clotted AV fistula. The patient had a femoral dialysis catheter placement, dialyzed day before yesterday. Hyperkalemia controlled, over volume controlled. Physical Examination: Vital Signs: Blood pressure 139/94, pulse of 80. Chest: Crackles bilateral base. Heart: S1, S2. Systolic murmur. Abdomen: Soft, nontender. Extremity: No edema. Right femoral. Neurological: Alert, oriented x3. No focality. Laboratory Data: H and H 13. Sodium 139, potassium 4.5, bicarb 22, BUN 100, creatinine 7.8, calcium 8.5, magnesium 2.9. Current Medications: The patient on include heparin, Lovenox, atorvastatin, vancomycin, ceftriaxone, codeine. Assessment And Plan: 1. End-stage renal disease with hyperkalemia, over volume. We will arrange for dialysis today and we will continue to monitor. 2. Hypertension, controlled, optimal. Continue current medications. 3. Hyperkalemia, status post dialysis, resolved. 4. Over volume. We will continue to challenge the patient. 5. Anemia of chronic kidney disease. No need for JOSE. 6. Clotted AV fistula, status post femoral placement. We are waiting for transfer for declot. Time spent examining the patient [id number], reviewing the data lab and radiology, placing orders, discussing with the patient, explaining risks, benefits, alternatives, discussing with the staff member including nursing discussing with the hospitalist more than 35 minutes. HOMER Voice ID: [id number] Report ID: [id number] MTDBrigitte
[2022-04-15] MEDS: CEFTRIAXONE 2,000 MG in NA CHLORIDE 0.9% 100 ML IV SCH (15:05)
[2022-04-15] MEDS: ENOXAPARIN 100 MG/ML SYR SQ SCH (15:06)
[2022-04-15] MEDS: ATORVASTATIN 40 MG TAB PO SCH (21:06)
[2022-04-15] MEDS ORDERED: VANCOMYCIN 1 GM in NA CHLORIDE 0.9% 250 ML IVPB SCH (23:00)
[2022-04-16] MEDS: INSULIN -REGULAR HUMAN 50 UNIT/0.5 ML ML SQ SCH ×4 (07:30→20:41)
[2022-04-16 09:00] VITALS: O2SAT 100
[2022-04-16] MEDS: ASPIRIN 81 MG CHEWABLE TABLET PO SCH (09:01)
[2022-04-16] MEDS: CEFTRIAXONE 2,000 MG in NA CHLORIDE 0.9% 100 ML IV SCH (13:33)
--- NOTE | 2022-04-16 13:51 | PN ---
Date of Progress Note: 04/16/2022 Subjective: The patient was admitted with clotted access. The patient had a femoral temporary catheter. The patient waiting for transfer for declot. Physical Examination: Vital Signs: When I saw the patient; blood pressure 127/81, pulse of 97, afebrile. Chest: Crackles bilateral. Heart: S1, S2. Regular. Abdomen: Soft, nontender. Extremity: Trace edema. Neurologic: Alert. No focality. Laboratory Data: Hemoglobin 13, sodium 139, potassium 4.5, bicarb 22, BUN 100, creatinine 7.8, calcium 8.5, magnesium 2.9. BNP 150,000. Assessment And Plan: 1. End-stage renal disease with over volume and clotted AV access. I am going to continue to challenge the patient on the dialysis. The patient waiting for declot. 2. Hypertension, controlled, optimal. We will utilize blood pressure for more ultrafiltration. 3. Anemia of chronic kidney disease. No need for JOSE. 4. Secondary hyperparathyroidism, stable. Continue binders. 5. Over volume. I am going to continue challenging the patient. 6. Clotted access as above. Time spent examining the patient [id number], reviewing the data lab and radiology, placing orders, discussing with the patient, explaining risks, benefits, alternatives, discussing with the staff member including nursing discussing with the hospitalist more than 35 minutes. HOMER Voice ID: [id number] Report ID: [id number] NATY
[2022-04-16] MEDS ORDERED: SEVELAMER CARBONATE 800 MG TABLET PO SCH (17:00)
[2022-04-16] MEDS: ENOXAPARIN 100 MG/ML SYR SQ SCH (17:38)
[2022-04-16] MEDS: ATORVASTATIN 40 MG TAB PO SCH (20:41)
[2022-04-16] MEDS ORDERED: MIDODRINE HCL 5 MG TABLET PO SCH (21:00)
[2022-04-16] MEDS ORDERED: ALBUMIN HUMAN 25% 100 ML IV ONE (23:04)
[2022-04-16] MEDS ORDERED: NA CHLORIDE 0.9% 250 ML IV ONE (23:04)
[2022-04-16] MEDS ORDERED: NA CHLORIDE 0.9% 500 ML ONE (23:15)
[2022-04-17] MEDS ORDERED: ALBUMIN HUMAN 25% 100 ML IV ONE (00:57)
[2022-04-17 02:12] VITALS: TEMP 97.4
[2022-04-17 03:00] VITALS: BP 92/66
--- NOTE | 2022-04-17 03:26 | P.DS ---
Admission Date: 04/10/22 Discharge Date: 04/17/22 Reason for Admission: AMS, generalized weakness, SOB Consultations: Nephrology- Dr. Goss and Dr. Mckeon General Surgery- Dr. Deuñas Pulmonology- Dr. [place] Cardiology- Dr. 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 (4) ESRD (end stage renal disease) Status: Chronic (5) SARS-CoV-2 positive Status: Acute (6) Sepsis Status: Acute Qualifiers: Sepsis type: Streptococcus group B Sepsis acute organ dysfunction status: with acute organ dysfunction Severe sepsis acute organ dysfunction type: acute respiratory failure Acute respiratory failure type: with hypoxia Severe sepsis shock status: without septic shock Qualified Code(s): A40.1 - Sepsis due to streptococcus, group B; R65.20 - Severe sepsis without septic shock; J96.01 - Acute respiratory failure with hypoxia (7) Essential hypertension Onset Date: 09/14/16 Status: Chronic Brief History of Present Illness: Mr. Jarod Kraft is a pleasant 66 year old male who has a past medical history of end-stage renal disease on MWF HD, chronic combined systolic congestive heart failure, severe pulmonary hypertension, coronary artery disease, type II diabetes mellitus complicated by diabetic neuropathy, hypertension, and hyperlipidemia who presented to the [facility] Emergency Department for shortness of breath and generalized weakness. He reports that, over the last day, he has been experiencing generalized weakness and progressively worsening shortness of breath. He states that he was on hemodialysis today at his outpatient dialysis center before he felt generalized malaise and weakness, and was unable to complete the session. He states that he completed about 1 hour of dialysis prior to being transported here. He denies any obvious inciting or alleviating factors. He denies any sick contacts or recent travel. He states that he has received 3 doses of the COVID- 19 vaccine (both Pfizer and [place]), with his last dose being about 7 months ago. On review of systems, he denies any fevers, chills, headaches, dizziness, syncope, chest pain, palpitations, wheezing, cough, abdominal pain, nausea/vomiting, diarrhea, constipation, hematochezia, melena, dysuria, hematuria, myalgia, or any other symptoms. He presented to the Emergency Department for further evaluation. Upon presentation, his vital signs were notable for a heart rate of 101 bpm. His laboratory studies were notable for a WBC count of 19,500, a platelet of 102,000, a NT-Pro BNP of 119,495, a troponin of 140.7. Blood cultures x 2 were obtained. EKG revealed a paced-rhythm. Chest x-ray revealed, "no acute card iopulmonary disease." CT head revealed, "no definite acute intracranial abnormality. A remote moderate-sized right frontal lobe infarct is noted. No acute large vascular territory infarct is identified. MRI could better assess if there is high clinical concern for a small superimposed acute infarct." Nephrology was consulted in the Emergency Department, and recommendations are pending. In the Emergency Department, he was given ceftriaxone and bebtelovimab. He was admitted to the General Internal Medicine service for further evaluation. Hospital Course: He met SIRS criteria based on HR > 90 bpm, RR > 20 breaths/min, WBC > 12,000 and the suspected source is COVID-19. Severe sepsis is suspected due to concern for tissue hypoperfusion/organ dysfunction based on lactic acid > 2 mmol/L. Blood cultures drawn = 3/4 positive for G+ in pairs and chains. Broad spectrum antibiotics started: Vancomycin + Cefepime Troponin 140.7 -> 161.9 -> 524.7 -> 590.6, trend. Started aspirin + atorvastatin. It seems that he is on apixaban at home - will switch to enoxaparin while hospitalized to cover possible type II NSTEMI (demand ischemia). General surgery attempted right IJ and right subclavian Tesio catheter placement, placement of right femoral Vipul catheter, interpretation of intraoperative fluoroscopy, was able to access both the right internal jugular vein and the right subclavian vein however the guidewire would not go to the right side of the heart into the superior vena cava. Patient's respiratory status has improved. However, dialysis catheter is clotte d and transfer was initiated to [facility] for vascular surgery. <Carmella Pozoia - Last Filed: 04/17/22 03:11> Admission Date: 04/10/22 Discharge Date: 04/17/22 - Problems (1) Acute respiratory failure with hypoxia Status: Acute (2) Diabetes Status: Acute (3) ESRD (end stage renal disease) Status: Chronic (4) Severe pulmonary arterial systolic hypertension Status: Acute (5) Diabetes type 2, controlled Onset Date: 09/14/16 Status: Chronic Qualifiers: (6) Essential hypertension Onset Date: 09/14/16 Status: Chronic (7) History of permanent cardiac pacemaker placement Status: Chronic (8) Neuropathy Onset Date: 09/14/16 Status: Chronic Hospital Course: patient actually transferred to [facility]. <Bunny Serrano - Last Filed: 04/17/22 03:45> Disposition: TRANSFER TO [facility] Discharge Condition: GOOD Vital Signs/Physical Exam: Temp Pulse Resp BP Pulse Ox 97.4 F 81 14 92/66 99 04/17/22 02:10 04/17/22 02:15 04/17/22 02:15 04/17/22 02:15 04/17/22 02:15 General: Alert, In no apparent distress HEENT: Atraumatic, PERRLA, EOMI Neck: Supple, JVD not distended Respiratory: Clear to auscultation bilaterally, Normal air movement Cardiovascular: Regular rate/rhythm, Normal S1 S2 Gastrointestinal: Normal bowel sounds, No tenderness Musculoskeletal: No tenderness Integumentary: No rashes Neurological: Normal speech, Normal tone, Normal affect Other Physical/Emotional Findings: Psyche: unable to eval accurately at this time Laboratory Data at Discharge: WBC 10.90 K/uL (4.3-10.9) D 04/15/22 04:46 Hgb 13.0 g/dL (13.6-17.9) L 04/15/22 04:46 Hct 41.0 % (39.6-49.0) 04/15/22 04:46 Plt Count 115 K/uL (152-406) L 04/15/22 04:46 PT 21.0 SECONDS (9.5-12.5) H 04/11/22 01:46 INR 1.88 04/11/22 01:46 Sodium 139 mmol/L (136-145) 04/15/22 04:46 Potassium 4.5 mmol/L (3.5-5.1) 04/15/22 04:46 BUN 100 mg/dL (7-18) H 04/15/22 04:46 Creatinine 7.83 mg/dL (0.55-1.3) H* 04/15/22 04:46 Glucose 147 mg/dL (74-106) H 04/15/22 04:46 Phosphorus 7.1 mg/dL (2.5-4.9) H 04/11/22 01:46 Magnesium 2.9 mg/dL (1.8-2.4) H 04/15/22 04:46 Total Bilirubin 1.0 mg/dL (0.2-1.0) 04/13/22 03:03 AST 14 U/L (15-37) L 04/13/22 03:03 ALT 26 U/L (12-78) 04/13/22 03:03 Alkaline Phosphatase 138 U/L (45-117) H 04/13/22 03:03 <Sugar Pozo - Last Filed: 04/17/22 03:11> Vital Signs/Physical Exam: Temp Pulse Resp BP Pulse Ox 97.4 F 81 14 92/66 99 04/17/22 02:10 04/17/22 02:15 04/17/22 02:15 04/17/22 02:15 04/17/22 02:15 Laboratory Data at Discharge: WBC 10.90 K/uL (4.3-10.9) D 04/15/22 04:46 Hgb 13.0 g/dL (13.6-17.9) L 04/15/22 04:46 Hct 41.0 % (39.6-49.0) 04/15/22 04:46 Plt Count 115 K/uL (152-406) L 04/15/22 04:46 PT 21.0 SECONDS (9.5-12.5) H 04/11/22 01:46 INR 1.88 04/11/22 01:46 Sodium 139 mmol/L (136-145) 04/15/22 04:46 Potassium 4.5 mmol/L (3.5-5.1) 04/15/22 04:46 BUN 100 mg/dL (7-18) H 04/15/22 04:46 Creatinine 7.83 mg/dL (0.55-1.3) H* 04/15/22 04:46 Glucose 147 mg/dL (74-106) H 04/15/22 04:46 Phosphorus 7.1 mg/dL (2.5-4.9) H 04/11/22 01:46 Magnesium 2.9 mg/dL (1.8-2.4) H 04/15/22 04:46 Total Bilirubin 1.0 mg/dL (0.2-1.0) 04/13/22 03:03 AST 14 U/L (15-37) L 04/13/22 03:03 ALT 26 U/L (12-78) 04/13/22 03:03 Alkaline Phosphatase 138 U/L (45-117) H 04/13/22 03:03 <Bunny Serrano - Last Filed: 04/17/22 03:45> Diet: Renal Activity: Fall precautions Time spent managing pt's care (in minutes): 30 <Sugar Pozo - Last Filed: 04/17/22 03:11> <Bunny Serrano - Last Filed: 04/17/22 03:45> Home Medications: Pantoprazole [Protonix Tab*] 40 mg PO BIDAC #60 tab 05/15/20 Calcium Carbonate [Tums Regular*] 500 mg PO AC #30 tab 11/10/21 Midodrine HCl [Proamatine*] 10 mg PO TID #90 tab 11/10/21 Thiamine HCl [Vitamin B-1*] 100 mg PO DAILY #30 tablet 11/10/21 Aspirin Chewable [Aspirin Chewable*] 81 mg PO DAILY tab.chew 04/16/22 Atorvastatin Calcium [Lipitor] 40 mg PO BEDTIME tab 04/16/22 Codeine/APAP [Tylenol #3*] 1 tab PO Q4H PRN tab 04/16/22 Enoxaparin Sodium [Lovenox 100 MG INJ*] 100 mg SQ 1500 syr 04/16/22 Insulin Detemir [Levemir] 20 units SQ BEDTIME #10 ml 04/16/22 Sevelamer Carbonate [Renvela*] 1,600 mg PO TIDWM 04/16/22 New Medications: Insulin Detemir [Levemir] 20 units SQ BEDTIME #10 ml Physician Discharge Instructions: -Transfer to [facility] -Follow-up with PCP in 1 to 2 weeks -Follow-up with Vascular Surgery & Nephrology in 1 to 2 days -Please call Dr. Serrano at [phone] if any questions regarding hospital stay -Please call nursing station at [phone] if any nursing or medication questions -Return to the emergency room if symptoms worsen Followup: Leighann Parson MD [Primary Care Provider] - (call to schedule appointment)
--- NOTE | 2022-04-17 03:44 | P.PN ---
Date of Service: 04/16/22 Subjective Did doc-to -doc and patient accepted to [facility]. Pending bed assignment. Review of Systems 10-point ROS is otherwise unremarkable Physical Examination - Vital Signs Reviewed - Physical Exam General: Alert, In no apparent distress Respiratory: Clear to auscultation bilaterally, Normal air movement Cardiovascular: Regular rate/rhythm, Normal S1 S2 Gastrointestinal: Normal bowel sounds, No tenderness Neurological: Normal speech, Normal tone, Normal affect Assessment & Plan - Problems (Diagnosis) (1) Acute respiratory failure with hypoxia Current Visit: No Status: Acute (2) Diabetes Current Visit: No Status: Acute (3) ESRD (end stage renal disease) Current Visit: No Status: Acute (4) Severe pulmonary arterial systolic hypertension Current Visit: No Status: Acute (5) Diabetes type 2, controlled Onset Date: 09/14/16 Current Visit: No Status: Chronic Qualifiers: (6) Essential hypertension Onset Date: 09/14/16 Current Visit: No Status: Chronic (7) History of permanent cardiac pacemaker placement Current Visit: No Status: Chronic (8) Neuropathy Onset Date: 09/14/16 Current Visit: No Status: Chronic - Plan continue with plan of care as mentioned below: 1. Continue with hemodialysis per nephrology 2. Arrange for transfer per Nephrology recommendation; declotting AV fistula 3. Monitor electrolytes 4. Out of bed and ambulate Discharge Plan: Transfer - Advance Directives Does patient have a Living Will: No Does patient have a Durable POA for Healthcare: No - Code Status/Comfort Care Code Status: Full Code Critical Care: No Time Spent Managing PTS Care (In Minutes): 35
== END 2022-04-17 02:30 | disposition short-term general hospital (02) | DRG 871 ==
LOC: ER 06:54 → ERHOLD 10:35 → 4TH 14:21
PROVIDERS: ADMIT Internal Medicine; ATTEND Internal Medicine
PROC: 5A1D70Z Performance of Urinary Filtration, Intermittent, Less than 6 Hours Per Day (ICD-10-PCS; 2022-04-12)
PROC: 06HM33Z Insertion of Infusion Device into Right Femoral Vein, Percutaneous Approach (ICD-10-PCS; principal; 2022-04-12 10:00)
PROC: 5A1D70Z Performance of Urinary Filtration, Intermittent, Less than 6 Hours Per Day (ICD-10-PCS; 2022-04-13)
PROC: 5A1D70Z Performance of Urinary Filtration, Intermittent, Less than 6 Hours Per Day (ICD-10-PCS; 2022-04-15)
DX: A40.1 Sepsis due to streptococcus, group B (principal); U07.1 COVID-19; J96.01 Acute respiratory failure with hypoxia; I50.43 Acute on chronic combined systolic (congestive) and diastolic (congestive) heart failure; N18.6 End stage renal disease; I24.8 Other forms of acute ischemic heart disease; I13.2 Hypertensive heart and chronic kidney disease with heart failure and with stage 5 chronic kidney disease, or end stage renal disease; E87.2 Acidosis; T82.49XA Other complication of vascular dialysis catheter, initial encounter; I27.20 Pulmonary hypertension, unspecified; E11.40 Type 2 diabetes mellitus with diabetic neuropathy, unspecified; E11.22 Type 2 diabetes mellitus with diabetic chronic kidney disease; A41.89 Other specified sepsis; E78.5 Hyperlipidemia, unspecified; I48.0 Paroxysmal atrial fibrillation; R65.20 Severe sepsis without septic shock; N25.0 Renal osteodystrophy; E87.5 Hyperkalemia; D63.1 Anemia in chronic kidney disease; Z99.2 Dependence on renal dialysis; Z95.0 Presence of cardiac pacemaker; Z79.01 Long term (current) use of anticoagulants; Z86.73 Personal history of transient ischemic attack (TIA), and cerebral infarction without residual deficits
CPT/HCPCS: 36415; 70450; 71045; 71275; 76000; 80048; 80053; 80076; 80202; 81003; 82550; 82805; 82947; 83036; 83605; 83735; 83880; 84100; 84145; 84484; 85025; 85379; 85610; 87040; 87077; 87086; 87088; 87186; 87205; 87804; 87811; 90935; 93005; 93306; 96365; 96366; 97116; 97161; 97530; 99285; C1769; J0690; J0692; J0696; J1100; J1644; J1650; J1815; J1940; J2250; J2704; J3010; J3370; J7040; J7050; J8540; P9047; Q9967